=== PATIENT | male | born 1965 | race Caucasian/White ===

== ENCOUNTER 2023-10-13 15:41 | Emergency (ER) | payer MEDICAID, SELFPAY ==
[2023-10-13] VITALS (18 sets, daily range): BP systolic 94–147; BP diastolic 70–103; PULSE 87–115; RESP 13–30; TEMP 37.1; O2SAT 96–99; BMI 33.9
--- NOTE | 2023-10-13 15:57 | XR_ITS ---
The [address] [address] Patient Name: BO KENNY MRN: [id number] date: 1965 Sex: M Assigned Patient Location: ER Current Patient Location: ER Accession/Order Number: [id number] Exam Date: 10/13/2023 16:00 Report Date: 10/13/2023 16:22 At the request of: JACKIE LU Procedure: XR chest 1V EXAM: Chest x-ray HISTORY: . SOB . COMPARISON: 07/21/2022 TECHNIQUE: Single view of the chest FINDINGS: Heart is slightly enlarged. Vascularity is unremarkable. Lungs are free of focal infiltrates. No acute bony abnormality is appreciated. XR/XR chest 1V IMPRESSION: 1. Slight cardiac enlargement. 2. No infiltrates. Electronically authenticated by: CAROLYN BOLANOS Date: 10/13/2023 16:22
--- NOTE | 2023-10-13 15:57 | ECG_ITS ---
The [facility] Test Date: 2023-10-13 Pat Name: BO KENNY Department: Room: - Gender: Male Clinic Business Manager: : 1965 Requested By: Order Number: [id number] Reading MD: TANIKA GROVER Measurements Intervals [place] Rate: 98 P: 52 ID: [id number] QRS: -24 QRSD: 98 T: 65 QT: 346 QTc: 402 Interpretive Statements 1100 Sinus rhythm [address] depression, probably normal 7202 Moderate left axis deviation Low voltage across the precordium 9130 borderline ECG Electronically Signed On 10-14-2023 6:50:58 EDT by TANIKA GROVER
--- NOTE | 2023-10-13 15:59 | ED.SOB1 ---
HPI - SOB/Dyspnea General Chief Complaint: Shortness of Breath/Dyspnea Stated Complaint: Shortness of Breath Time Seen by Provider: 10/13/23 15:49 Source: patient Mode of arrival: walk-in Limitations: no limitations History of Present Illness HPI Narrative: 58 male presents to the emergency department for difficulty breathing. At about 1230 today he was sitting at a table and had a syncopal or near syncopal episode. Since then he has been short of breath. There was no injury. He always has wheezing but it is a bit more than typical and he used a nebulizer treatment afterwards. He is mostly worried about his heart, he states he had a heart attack before and wants to make sure he did not have another 1. No fever or productive cough. He took a home COVID test and it was negative according to the patient. He does not complain of chest pain Related Data Previous Rx's ?Medication ?Instructions ?Recorded prednisone 10 mg tablet See Rx Instructions .Route 10/13/23 .COMPLEX #30 tabs Allergies Allergy/AdvReac Type Severity Reaction Status Date / Time Penicillins Allergy Verified 10/13/23 15:50 Review of Systems ROS Narrative A ten point review of systems is negative except as noted above. Exam Narrative Exam Narrative: Nurses note and vital signs reviewed and patient is not hypoxic. General: The patient appears well and in no apparent distress. Patient is resting comfortably on cart. Skin: Warm, dry, no pallor noted. There is no rash noted. Head: Normocephalic, atraumatic Eye: Normal conjunctiva, no drainage Ears, Nose, Mouth, and Throat: oral mucosa is moist. Nares patent. Cardiovascular: Regular Rate and Rhythm Respiratory: Bilateral rhonchi present with equal breath sounds. Back: non-tender GI: Obese nontender, colostomy bag in place. Musculoskeletal: The patient has no evidence of calf tenderness, symmetrical pulses noted bilaterally Neurological: A&O, normal speech Psychiatric: Cooperative Constitutional Vital Signs, click to edit/add: Last Vital Signs Temp 98.7 F 10/13/23 15:45 Pulse 93 H 10/13/23 17:30 Resp 15 10/13/23 17:30 BP 108/75 10/13/23 17:30 Pulse Ox 97 10/13/23 17:30 O2 Del Method Nasal Cannula 10/13/23 16:18 O2 Flow Rate 2 10/13/23 16:18 Course Vital Signs Vital signs: Vital Signs Temperature 98.7 F 10/13/23 15:45 Pulse Rate 115 H 10/13/23 15:45 Respiratory Rate 30 H 10/13/23 15:45 Blood Pressure 128/89 10/13/23 15:45 Pulse Oximetry 98 10/13/23 15:45 Oxygen Delivery Method Room Air 10/13/23 15:45 Temperature 98.7 F 10/13/23 15:45 Pulse Rate 93 H 10/13/23 17:30 Respiratory Rate 15 10/13/23 17:30 Blood Pressure 108/75 10/13/23 17:30 Pulse Oximetry 97 10/13/23 17:30 Oxygen Delivery Method Nasal Cannula 10/13/23 16:18 Oxygen Delivery Flow Rate 2 10/13/23 16:18 MDM - SOB/Dyspnea MDM Narrative Medical decision making narrative: His workup including 2 troponins is negative. He feels much better now after being given IV Solu-Medrol and aerosol treatment and is able to be discharged home. Treatment diagnosis and follow-up were discussed with the patient. Differential Diagnosis Differential diagnosis: Likely acute exacerbation of chronic obstructive airways disease, congestive heart failure, community acquired pneumonia and other (COVID, influenza, myocardial infarction) Lab Data Attestation: I reviewed the patient's lab results. Labs: Lab Results 10/13/23 10/13/23 10/13/23 Range/Units 16:00 16:04 16:57 WBC 7.2 (4.0-11.0) 10^3/uL RBC 4.44 L (4.70-6.10) 10^6/uL Hgb 14.9 (14.0-18.0) g/dL Hct 43.1 (42.0-54.0) % MCV 97.1 H (80.0-94.0) fL MCH 33.6 (25.9-34.0) pg MCHC 34.6 (29.9-35.2) g/dL RDW 12.5 (11.0-15.0) % Plt Count 208 (150-450) 10^3/uL MPV 9.9 (9.5-13.5) fL Neut % (Auto) 69.6 (43.0-75.0) % Lymph % (Auto) 22.2 (20.5-60.0) % [place] % (Auto) 5.6 (1.7-12.0) % Eos % (Auto) 1.9 (0.9-7.0) % Baso % (Auto) 0.3 (0.2-2.0) % Neut # (Auto) 5.0 (1.4-6.5) 10^3/uL Lymph # (Auto) 1.6 (1.2-3.8) 10^3/uL [place] # (Auto) 0.4 (0.3-0.8) 10^3/uL Eos # (Auto) 0.1 (0.0-0.7) 10^3/uL Baso # (Auto) 0.0 (0.0-0.1) 10^3/uL Abs Immat Gran (auto) 0.03 (0.00-0.03) 10^3/uL Imm/Tot Granulo (auto) 0.4 (0.0-0.5) % Sodium 137 (136-145) mmol/L Potassium 3.6 (3.5-5.1) mmol/L Chloride 98 (98-107) mmol/L Carbon Dioxide 26.0 (21.0-32.0) mmol/L Anion Gap 16.6 BUN 8.0 (7.0-18.0) mg/dL Creatinine 0.80 (0.70-1.30) mg/dL Est GFR ( Amer) >60 (>=60) Est GFR (Non-Af Amer) >60 (>=60) BUN/Creatinine Ratio 10.0 Glucose 105 (74-106) mg/dL Calcium 9.1 (8.5-10.1) mg/dL Troponin I High Sens 18.4 18.3 (4.0-76.1) pg/mL Influenza Type A Ag Negative Influenza Type B Ag Negative SARS-CoV-2 Ag (CV2AG) Negative (NEGATIVE) Imaging Data Chest x-ray: Radiologist's impression: ITS Impressions Chest X-Ray 10/13/23 15:57 IMPRESSION: 1. Slight cardiac enlargement. 2. No infiltrates. Electronically authenticated by: CAROLYN BOLANOS Date: 10/13/2023 16:22 ECG Data Attestation: I personally reviewed and interpreted this ECG as follows: (EKG on my interpretation shows sinus rhythm without acute change) Discharge Plan Discharge Stand Alone Forms: Portal Instructions Chief Complaint: Shortness of Breath/Dyspnea Clinical Impression: Acute exacerbation of chronic obstructive pulmonary disease Patient Disposition: Home, Self-Care Time of Disposition Decision: 17:38 Condition: Good Mode of Transportation: Private Vehicle Prescriptions / Home Meds: New prednisone 10 mg tablet See Rx Instructions .ROUTE .COMPLEX Qty: 30 0RF Rx Instructions: 4 by mouth daily for three days then 3 by mouth daily for three days then 2 by mouth daily for three days then 1 by mouth daily for three days Print Language: Togolese Instructions: COPD (Chronic Obstructive Pulmonary Disease) (ED) Referrals: [facility] [Primary Care Provider] - 1 week
[2023-10-13] MEDS: METHYLPREDNISOLONE SOD SUCC PF 125 MG/2 ML VIAL IVP (16:12)
[2023-10-13] MEDS: ALBUTEROL SULFATE 2.5 MG/3 ML VIAL NEB IH (16:17)
[2023-10-13 16:32] LABS: Basophils Percent Auto 0.3 % (0.2-2.0); Eosinophils Absolute Auto 0.1 10^3/uL (0.0-0.7); Eosinophils Percent Auto 1.9 % (0.9-7.0); Hematocrit 43.1 % (42.0-54.0); Hemoglobin 14.9 g/dL (14.0-18.0); Immature Granulocytes Abs Auto 0.03 10^3/uL (0.00-0.03); Immature Granulocytes Pct Auto 0.4 % (0.0-0.5); Lymphocytes Absolute Auto 1.6 10^3/uL (1.2-3.8); Lymphocytes Percent Auto 22.2 % (20.5-60.0); Mean Corpuscular HGB Conc 34.6 g/dL (29.9-35.2); Mean Corpuscular Hemoglobin 33.6 pg (25.9-34.0); Mean Corpuscular Volume 97.1 fL (80.0-94.0); Mean Platelet Volume 9.9 fL (9.5-13.5); Monocytes Absolute Auto 0.4 10^3/uL (0.3-0.8); Monocytes Percent Auto 5.6 % (1.7-12.0); Neutrophils Percent Auto 69.6 % (43.0-75.0); Platelet Count 208 10^3/uL (150-450); Red Blood Count 4.44 10^6/uL (4.70-6.10); Red Cell Distribution Width 12.5 % (11.0-15.0); White Blood Count 7.2 10^3/uL (4.0-11.0)
[2023-10-13 16:42] LABS: Anion Gap 16.6; Calcium 9.1 mg/dL (8.5-10.1); Chloride 98 mmol/L (98-107); Estimated GFR (African America >60 (>=60); Estimated GFR (Non-African Ame >60 (>=60); Glucose 105 mg/dL (74-106); Potassium 3.6 mmol/L (3.5-5.1); Sodium 137 mmol/L (136-145); Troponin I High Sensitivity 18.4 pg/mL (4.0-76.1)
[2023-10-13 16:42] LABS: Influenza Virus A Antigen Negative; Influenza Virus B Antigen Negative; Internal Control Within Normal Limits
[2023-10-13 16:43] LABS: SARS-CoV-2 Ag NEGATIVE (NEGATIVE)
[2023-10-13 17:19] LABS: Troponin I High Sensitivity 18.3 pg/mL (4.0-76.1)
== END 2023-10-13 17:49 | disposition home or self-care (01) ==
PROVIDERS: Emergency Provider Emergency Medicine
DX: J44.1 Chronic obstructive pulmonary disease with (acute) exacerbation (principal); R06.02 Shortness of breath; I25.2 Old myocardial infarction; Z93.3 Colostomy status
CPT/HCPCS: 36415; 71045; 80048; 84484; 85025; 87804; 87811; 93005; 94640; 96374; 99285; J2930

== ENCOUNTER 2024-05-01 17:10 | Inpatient (IN) | payer MEDICAID, SELFPAY ==
[2024-05-01] VITALS (20 sets, daily range): BP systolic 120–162; BP diastolic 78–119; PULSE 93–122; TEMP 36.7–37.3; O2SAT 91–96; BMI 39.5; BMI 40.0
--- NOTE | 2024-05-01 17:13 | ECG_ITS ---
The [facility] Test Date: 2024-05-01 Pat Name: BO KENNY Department: Room: - Gender: Male Physician Primary Care Sports Medicine: : 1965 Requested By: Order Number: [id number] Reading MD: TANIKA GROVER Measurements Intervals [place] Rate: 113 P: -22 MN: 158 QRS: -30 QRSD: 112 T: 42 QT: 362 QTc: 429 Interpretive Statements 1120 Sinus tachycardia 2320 Nonspecific intraventricular conduction delay [address] depression, probably normal [address] & [place] abnormality 7202 Moderate left axis deviation 9140 abnormal rhythm ECG Electronically Signed On 05-01-2024 22:31:53 EDT by TANIKA GROVER
--- NOTE | 2024-05-01 17:30 | ED.SOB1 ---
HPI - SOB/Dyspnea General Chief Complaint: Shortness of Breath/Dyspnea Stated Complaint: sob Time Seen by Provider: 05/01/24 17:12 Source: patient Mode of arrival: walk-in Limitations: no limitations History of Present Illness HPI Narrative: Patient is a 58-year-old male well-known to this emergency department with a history of COPD, CHF, coronary artery disease who presents to the ER for increasing shortness of breath over the last several days. He believes he is having COPD exacerbation. He used a breathing treatment and his rescue inhaler 30 minutes ago. He is tachypneic on arrival. No objective fevers or vomiting. He reports some tightness in the chest with coughing but has no consistent chest pain. He does have a history of his legs being swollen but states they seem to be better at this time. No sick contacts in the home. Related Data Home Medications ?Medication ?Instructions ?Recorded ?Confirmed No Known Home Medications 05/01/24 05/01/24 Allergies Allergy/AdvReac Type Severity Reaction Status Date / Time Penicillins Allergy Verified 10/13/23 15:50 Review of Systems ROS Constitutional Denies: fever or chills Ears, nose, mouth, and throat Denies: throat pain or nasal congestion Cardiovascular Denies: chest pain Respiratory Reports: shortness of breath, cough and wheezing Gastrointestinal Denies: nausea or vomiting Neurological Denies: numbness in extremities or weakness in extremities Hematologic/Lymphatic Denies: easy bruising or easy bleeding PFSH PFSH Social History Little interest or pleasure in doing things: not at all Feeling down, depressed, or hopeless: not at all Exam Narrative Exam Narrative: Gen.: Awake, alert, in no distress Head: Normocephalic, atraumatic ENT: Moist mucous membranes Respiratory: No respiratory distress, lungs are diminished, faint expiratory wheezing Cardio: Regular rate and rhythm Gastrointestinal: Abdomen is soft, nondistended and nontender to palpation Extremities: Moves extremities equally, no pedal edema Psych: Normal mood and affect Neuro: No focal neuro deficit Skin: Warm, dry, intact Constitutional Vital Signs, click to edit/add: Last Vital Signs Temp 99.2 F 05/01/24 18:49 Pulse 98 H 05/01/24 18:49 Resp 22 H 10/07/24 18:49 BP 120/80 05/01/24 18:49 Pulse Ox 93 L 05/01/24 18:49 O2 Del Method Room Air 05/01/24 18:49 Course Vital Signs Vital signs: Vital Signs Temperature 98.6 F 05/01/24 17:19 Pulse Rate 122 H 05/01/24 17:19 Respiratory Rate 28 H 05/01/24 17:19 Blood Pressure 162/119 H 05/01/24 17:19 Pulse Oximetry 96 05/01/24 17:19 Oxygen Delivery Method Room Air 05/01/24 17:19 Temperature 99.2 F 05/01/24 18:49 Pulse Rate 98 H 05/01/24 18:49 Respiratory Rate 22 H 05/01/24 18:49 Blood Pressure 120/80 05/01/24 18:49 Pulse Oximetry 93 L 05/01/24 18:49 Oxygen Delivery Method Room Air 05/01/24 18:49 MDM - SOB/Dyspnea MDM Narrative Medical decision making narrative: Patient treated with Solu-Medrol, DuoNeb in the ER. He was also given 0.5 g Nitropaste topically for elevated blood pressure and chest discomfort. He has no severe chest pain in the ER and troponin is normal. COVID and influenza screens are negative, the remainder of the lab work is unremarkable the lactic acid was mildly elevated. Blood cultures were obtained, patient will be admitted for COPD exacerbation. Oxygen was placed by nasal cannula at 2 L for comfort as the patient had oxygen saturation 91 to 93% after breathing treatment. Respirations remain between 19-22. SUPERVISED APC VISIT, PHYSICIAN ATTESTATION: Based on the medical record the care appears appropriate. ? Medical Records Attestation: I reviewed the patient's medical records. Lab Data Attestation: I reviewed the patient's lab results. Labs: Lab Results 05/01/24 05/01/24 Range/Units 17:31 17:37 WBC 8.4 (4.0-11.0) 10^3/uL RBC 4.58 L (4.70-6.10) 10^6/uL Hgb 15.6 (14.0-18.0) g/dL Hct 45.3 (42.0-54.0) % MCV 98.9 H (80.0-94.0) fL MCH 34.1 H (25.9-34.0) pg MCHC 34.4 (29.9-35.2) g/dL RDW 12.7 (11.0-15.0) % Plt Count 211 (150-450) 10^3/uL MPV 9.8 (9.5-13.5) fL Neut % (Auto) 74.0 (43.0-75.0) % Lymph % (Auto) 19.3 L (20.5-60.0) % [place] % (Auto) 5.7 (1.7-12.0) % Eos % (Auto) 0.2 L (0.9-7.0) % Baso % (Auto) 0.4 (0.2-2.0) % Neut # (Auto) 6.2 (1.4-6.5) 10^3/uL Lymph # (Auto) 1.6 (1.2-3.8) 10^3/uL [place] # (Auto) 0.5 (0.3-0.8) 10^3/uL Eos # (Auto) 0.0 (0.0-0.7) 10^3/uL Baso # (Auto) 0.0 (0.0-0.1) 10^3/uL Abs Immat Gran (auto) 0.03 (0.00-0.03) 10^3/uL Imm/Tot Granulo (auto) 0.4 (0.0-0.5) % VBG pH 7.472 H (7.330-7.430) VBG pCO2 38.3 L (40.0-52.0) mmHg Sodium 137 (136-145) mmol/L Potassium 3.4 L (3.5-5.1) mmol/L Chloride 99 (98-107) mmol/L Carbon Dioxide 27.3 (21.0-32.0) mmol/L Anion Gap 14.1 BUN 8.0 (7.0-18.0) mg/dL Creatinine 1.02 (0.70-1.30) mg/dL Est GFR ( Amer) >60 (>=60 mL/min/1.73m^2) Est GFR (Non-Af Amer) >60 (>=60 mL/min/1.73m^2) BUN/Creatinine Ratio 7.8 Glucose 111 H (74-106) mg/dL Lactate 2.4 H* (0.4-2.0) mmol/L Calcium 9.4 (8.5-10.1) mg/dL Total Bilirubin 1.1 H (0.2-1.0) mg/dL AST 17 (15-37) U/L ALT 21 (16-63) U/L Alkaline Phosphatase 126 H (46-116) U/L Troponin I High Sens 33.0 (4.0-76.1) pg/mL NT-Pro-B Natriuret Pep 260.0 (<=900.0) pg/mL Total Protein 7.4 (6.4-8.2) g/dL Albumin 3.4 (3.4-5.0) g/dL Globulin 4.0 g/dL Albumin/Globulin Ratio 0.9 Influenza Type A Ag Negative Influenza Type B Ag Negative SARS-CoV-2 Ag (CV2AG) Negative (NEGATIVE) Imaging Data Chest x-ray: Attestation: I have reviewed the pertinent imaging results. ECG Data Attestation: I personally reviewed and interpreted this ECG as follows: (Sinus tachycardia at a rate of 113, occasional PVC, artifact noted with no obvious ST elevation. EKG reviewed by attending physician) Discharge Plan Discharge Chief Complaint: Shortness of Breath/Dyspnea Time of Disposition Decision: 19:13 Prescriptions / Home Meds: No Action No Known Home Medications Print Language: Georgian
[2024-05-01 17:55] LABS: Basophils Percent Auto 0.4 % (0.2-2.0); Eosinophils Percent Auto 0.2 % (0.9-7.0); Hematocrit 45.3 % (42.0-54.0); Hemoglobin 15.6 g/dL (14.0-18.0); Immature Granulocytes Abs Auto 0.03 10^3/uL (0.00-0.03); Immature Granulocytes Pct Auto 0.4 % (0.0-0.5); Lymphocytes Absolute Auto 1.6 10^3/uL (1.2-3.8); Lymphocytes Percent Auto 19.3 % (20.5-60.0); Mean Corpuscular HGB Conc 34.4 g/dL (29.9-35.2); Mean Corpuscular Hemoglobin 34.1 pg (25.9-34.0); Mean Corpuscular Volume 98.9 fL (80.0-94.0); Mean Platelet Volume 9.8 fL (9.5-13.5); Monocytes Absolute Auto 0.5 10^3/uL (0.3-0.8); Monocytes Percent Auto 5.7 % (1.7-12.0); Neutrophils Absolute Auto 6.2 10^3/uL (1.4-6.5); Platelet Count 211 10^3/uL (150-450); Red Blood Count 4.58 10^6/uL (4.70-6.10); Red Cell Distribution Width 12.7 % (11.0-15.0); White Blood Count 8.4 10^3/uL (4.0-11.0)
[2024-05-01] MEDS: METHYLPREDNISOLONE SOD SUCC PF 125 MG/2 ML VIAL IVP (18:04)
[2024-05-01] MEDS: IPRATROPIUM/ALBUTEROL SULFATE 3 ML AMPUL.NEB IH ×2 (18:11→21:56)
[2024-05-01 18:14] LABS: PCO2 VBG 38.3 mmHg (40.0-52.0); pH VBG 7.472 (7.330-7.430)
[2024-05-01 18:15] LABS: Alanine Aminotransferase 21 U/L (16-63); Albumin Globulin Ratio 0.9; Albumin Level 3.4 g/dL (3.4-5.0); Alkaline Phosphatase 126 U/L (46-116); Anion Gap 14.1; Aspartate Amino Transferase 17 U/L (15-37); BUN Creatinine Ratio 7.8; Bilirubin Total 1.1 mg/dL (0.2-1.0); Calcium 9.4 mg/dL (8.5-10.1); Carbon Dioxide 27.3 mmol/L (21.0-32.0); Chloride 99 mmol/L (98-107); Estimated GFR (African America >60 (>=60 mL/min/1.73m^2); Estimated GFR (Non-African Ame >60 (>=60 mL/min/1.73m^2); Glucose 111 mg/dL (74-106); Potassium 3.4 mmol/L (3.5-5.1); Sodium 137 mmol/L (136-145); Total Protein 7.4 g/dL (6.4-8.2)
[2024-05-01] MEDS: NITROGLYCERIN 2% 1 GRAM PACKET 0.5 GM TD (18:15)
[2024-05-01 18:18] LABS: Lactate/Lactic Acid 2.4 mmol/L (0.4-2.0)
[2024-05-01 18:24] LABS: Influenza Virus A Antigen Negative; Influenza Virus B Antigen Negative; Internal Control Within Normal Limits; SARS-CoV-2 Ag NEGATIVE (NEGATIVE)
--- NOTE | 2024-05-01 18:30 | XR_ITS ---
The [address] [address] Patient Name: BO KENNY MRN: [id number] date: 1965 Sex: M Assigned Patient Location: ER Current Patient Location: ER Accession/Order Number: [id number] Exam Date: 05/01/2024 18:25 Report Date: 05/01/2024 19:10 At the request of: COLE CAMPBELL Procedure: XR chest 1V EXAM: CHEST 1 VIEW HISTORY: Shortness of breath TECHNIQUE: Chest, one view. COMPARISON: 10/23/2023. FINDINGS: Low lung volumes with bibasilar atelectasis. No focal consolidation, pleural effusion, or pneumothorax. Pulmonary vasculature is within normal limits. Stable mild to moderate cardiomegaly XR/XR chest 1V IMPRESSION: 1. Expiratory chest with bibasilar atelectasis. No consolidation. 2. Stable cardiomegaly. Negative for pulmonary edema. Electronically authenticated by: MONET SCHAFFER Date: 05/01/2024 19:10
[2024-05-01] MEDS: DOXYCYCLINE HYCLATE 100 MG in 0.9 % SODIUM CHLORIDE 100 ML IV (21:46)
[2024-05-01] MEDS: GUAIFENESIN 200 MG/DEXTROMETHORPHAN 20 MG 10 ML UNIT DOSE CUP PO (21:46)
[2024-05-01] MEDS: TEMAZEPAM 15 MG CAPSULE PO (21:46)
[2024-05-01] MEDS: ONDANSETRON PF 4 MG/2 ML VIAL IV (21:46)
[2024-05-02] VITALS (21 sets, daily range): BP systolic 97–118; BP diastolic 66–81; PULSE 69–98; TEMP 36.4–36.7; O2SAT 92–100
[2024-05-02] MEDS: IPRATROPIUM/ALBUTEROL SULFATE 3 ML AMPUL.NEB IH ×5 (04:20→23:13)
[2024-05-02] MEDS: GUAIFENESIN 200 MG/DEXTROMETHORPHAN 20 MG 10 ML UNIT DOSE CUP PO (04:37)
[2024-05-02] MEDS: ONDANSETRON PF 4 MG/2 ML VIAL IV ×2 (04:37→23:26)
[2024-05-02 06:16] LABS: Hematocrit 45.3 % (42.0-54.0); Hemoglobin 15.2 g/dL (14.0-18.0); Mean Corpuscular HGB Conc 33.6 g/dL (29.9-35.2); Mean Corpuscular Volume 101.3 fL (80.0-94.0); Mean Platelet Volume 9.6 fL (9.5-13.5); Platelet Count 189 10^3/uL (150-450); Red Blood Count 4.47 10^6/uL (4.70-6.10); Red Cell Distribution Width 13.1 % (11.0-15.0); White Blood Count 8.3 10^3/uL (4.0-11.0)
[2024-05-02 06:39] LABS: Alanine Aminotransferase 17 U/L (16-63); Albumin Globulin Ratio 0.8; Albumin Level 3.2 g/dL (3.4-5.0); Alkaline Phosphatase 113 U/L (46-116); Anion Gap 16.2; Aspartate Amino Transferase 12 U/L (15-37); BUN Creatinine Ratio 11.1; Bilirubin Total 1.1 mg/dL (0.2-1.0); Calcium 9.2 mg/dL (8.5-10.1); Carbon Dioxide 26.9 mmol/L (21.0-32.0); Chloride 98 mmol/L (98-107); Estimated GFR (African America >60 (>=60 mL/min/1.73m^2); Estimated GFR (Non-African Ame >60 (>=60 mL/min/1.73m^2); Globulin 4.1 g/dL; Glucose 184 mg/dL (74-106); Magnesium 2.1 mg/dL (1.8-2.4); Potassium 4.1 mmol/L (3.5-5.1); Sodium 137 mmol/L (136-145); Total Protein 7.3 g/dL (6.4-8.2)
[2024-05-02 06:47] LABS: Lactate/Lactic Acid 4.2 mmol/L (0.4-2.0)
[2024-05-02 06:52] LABS: Internal Control Within Normal Limits; Respiratory Syncytial Virus Not Detected (NOT DETECTE)
[2024-05-02 07:01] LABS: Band Neutrophils Absolute 0.1 10^3/uL (0.0-0.3); Lymphocytes Absolute Manual 0.49 10^3/uL (1.20-3.80); Monocytes Absolute Manual 0.16 10^3/uL (0.30-0.80); Segmented Neut Absolute Manual 7.55 10^3/uL (1.4-6.5)
[2024-05-02] MEDS: METHYLPREDNISOLONE SOD SUCC PF 40 MG/ML VIAL IVP ×3 (08:58→21:04)
[2024-05-02] MEDS: DOXYCYCLINE HYCLATE 100 MG in 0.9 % SODIUM CHLORIDE 100 ML IV (08:58)
[2024-05-02] MEDS: ACETAMINOPHEN 325 MG TABLET 650 MG PO ×2 (08:58→21:04)
[2024-05-02] MEDS: 0.9 % SODIUM CHLORIDE 250 ML 10 ML IV (08:59)
--- NOTE | 2024-05-02 09:38 | PM.HP ---
HPI H&P: HPI History of Present Illness Chief complaint: COPD EXACERBATION. SOB Narrative: 58-year-old male with history of coronary artery disease, heart failure with preserved ejection fraction, COPD presented to ER with worsening shortness of breath, cough with productive sputum and decreased oxygen levels. Patient reports that his symptoms started last Wednesday and has progressively gotten worse to the point where he could not keep his oxygen level above 80% even with supplemental oxygen. He has supplemental oxygen to use as needed when he has COPD exacerbation. Patient reports poorly controlled COPD and has COPD flareup once a month or so when he requires oxygen for a couple of days. It also seems like he is very noncompliant with his medications and has not filled up any of his medications for a few months. Patient was recently switched over to Trelegy from Symbicort/Spiriva by his solar field service technician. Patient also reports low-grade fever on Wednesday. He denies any sick contacts. He is quite short of breath at rest with labored breathing/increased work of breathing and is unable to converse comfortably because of dyspnea Opioid HPI Opioid Management Most Recent Pain and Opioid Data: Last Pain Scale 4 05/02/24 09:05 Last Pain Assessment 05/02/24 09:05 Last MAR Pain Assessment 05/02/24 08:58 Last ORT Total Score 1 05/01/24 20:40 Last ORT Risk Category Low Risk 05/01/24 20:40 Review of Systems ROS Status of ROS 10 or more systems reviewed and unremarkable except as noted in history and below [facility] Medical History (Updated 05/02/24 @ 09:51 by Shaikh Eddie MD) Morbid obesity ?E66.01 - Morbid (severe) obesity due to excess calories (ICD-10) Current smoker ?F17.200 - Nicotine dependence, unspecified, uncomplicated (ICD-10) HLD (hyperlipidemia) ?E78.5 - Hyperlipidemia, unspecified (ICD-10) (HFpEF) heart failure with preserved ejection fraction ?I50.30 - Unspecified diastolic (congestive) heart failure (ICD-10) HTN (hypertension) ?I10 - Essential (primary) hypertension (ICD-10) CAD (coronary artery disease) ?I25.10 - Atherosclerotic heart disease of [place] coronary artery without angina pectoris (ICD-10) Social History (Updated 05/02/24 @ 00:51 by Corazon Shaw RN) Within the past year, how often did you have a drink containing alcohol: monthly or less Within the past year, how often did you have six or more drinks on one occasion: less than monthly Smoking status: Current some day smoker Second hand tobacco smoke exposure: No Non-prescribed substance use: denies use Highest level of school completed/degree received: GED or equivalent Little interest or pleasure in doing things: not at all Feeling down, depressed, or hopeless: not at all Do you think of yourself as: straight/heterosexual Gender Identity: male Meds Home Medications and Allergies Home Medications ?Medication ?Instructions ?Recorded ?Confirmed ?Type aspirin 81 mg capsule 81 mg PO DAILY 05/01/24 05/01/24 History atorvastatin 80 mg tablet 80 mg PO DAILY 05/01/24 05/01/24 History carvedilol 6.25 mg tablet 6.25 mg PO BID 05/01/24 05/01/24 History clopidogrel 75 mg tablet 75 mg PO DAILY 05/01/24 05/01/24 History furosemide 40 mg tablet 40 mg PO DAILY 05/01/24 05/01/24 History levothyroxine 200 mcg tablet 200 mcg PO DAILY 05/01/24 05/01/24 History (Euthyrox) lisinopril 2.5 mg tablet 2.5 mg PO DAILY 05/01/24 05/01/24 History loperamide 2 mg capsule (Imodium 4 mg PO Q8H PRN loose stool 05/01/24 05/01/24 History A-D) lorazepam 0.5 mg tablet (Ativan) 0.5 mg PO DAILY PRN anxiety 05/01/24 05/01/24 History ondansetron 4 mg disintegrating 4 mg PO QDAY 05/01/24 05/02/24 History tablet potassium chloride 20 mEq 40 meq PO DAILY 05/01/24 05/02/24 History tablet,extended release(part/cryst) (Klor-Con M) spironolactone 25 mg tablet 25 mg PO QDAY 05/01/24 05/01/24 History (Aldactone) trazodone 50 mg tablet 50 mg PO .hs 05/01/24 05/02/24 History albuterol sulfate 90 mcg/actuation 2 inh inhalation Q4H PRN shortness 05/02/24 05/02/24 History breath activated powder inhaler of breath Allergies Allergy/AdvReac Type Severity Reaction Status Date / Time Penicillins Allergy Verified 10/13/23 15:50 Exam Constitutional Vital Signs, click to edit/add: Last Vital Signs Temp 97.7 F 05/02/24 07:59 Pulse 89 05/02/24 08:00 Resp 22 H 05/02/24 07:59 BP 118/73 05/02/24 07:59 Pulse Ox 93 L 05/02/24 07:59 O2 Del Method Nasal Cannula 05/02/24 07:59 O2 Flow Rate 3 05/02/24 07:59 Common normals: oriented x3 General appearance: cooperative, in distress respiratory and ill appearing Nutritional appearance: obese HENMT Common normals: normocephalic and head/scalp atraumatic Respiratory Effort & inspection: tachypneic and labored Auscultation: wheezes throughout and diminished lung sounds Other: Conversational dyspnea noted. Patient SOB at rest. Coarse breath sounds. Cardio Common normals: regular rate, regular rhythm, S1 normal heart sound and S2 normal heart sound GI Common normals: Normal to inspection, nondistended, normoactive bowel sounds present, soft to palpation, non-tender and no hepatosplenomegaly Extremity Common normals: normal to inspection and full ROM Neuro Common normals: oriented x3, no focal motor deficits and no sensory deficits noted Psych Common normals: mental status grossly normal, thought process normal, denies homicidal ideation and denies suicidal ideation Results Labs Labs: Short CBC 05/01/24 05/02/24 Range/Units 17:37 06:08 WBC 8.4 8.3 (4.0-11.0) 10^3/uL Hgb 15.6 15.2 (14.0-18.0) g/dL Hct 45.3 45.3 (42.0-54.0) % Plt Count 211 189 (150-450) 10^3/uL BMP 05/01/24 05/02/24 17:37 06:08 Sodium 137 137 Potassium 3.4 L 4.1 Chloride 99 98 Carbon Dioxide 27.3 26.9 BUN 8.0 13.0 Creatinine 1.02 1.17 Glucose 111 H 184 H Calcium 9.4 9.2 Liver Function 05/01/24 05/02/24 Range/Units 17:37 06:08 Total Bilirubin 1.1 H 1.1 H (0.2-1.0) mg/dL AST 17 12 L (15-37) U/L ALT 21 17 (16-63) U/L Alkaline Phosphatase 126 H 113 (46-116) U/L Albumin 3.4 3.2 L (3.4-5.0) g/dL ABG ABG results: 05/01/24 17:37 VBG pH 7.472 H VBG pCO2 38.3 L Assessment and Plan Assessment and Plan (1) COPD exacerbation: Assessment and Plan: Acute COPD exacerbation with respiratory failure/hypoxia. Patient is dyspneic at rest, tachypneic and has increased work of breathing. Continue with IV Solu-Medrol, DuoNebs every 4 hours. On p.o. azithromycin for COPD exacerbation. (2) Acute respiratory failure with hypoxia: Assessment and Plan: Uses oxygen as needed whenever he has a COPD exacerbation. He is currently requiring 2 L of oxygen via nasal cannula. He was 88% on RA when I checked his pulse myself. (3) (HFpEF) heart failure with preserved ejection fraction: Assessment and Plan: Closely monitor volume status while receiving steroids. Qualifiers: Heart failure chronicity: chronic Qualified Code(s): I50.32 - Chronic diastolic (congestive) heart failure (4) CAD (coronary artery disease): Assessment and Plan: no evidence of active cardiac ischemia. had PCI 2018. C/w ASA, plavix, statin Qualifiers: Coronary Disease-Associated Artery/Lesion type: [place] artery [place] vs. transplanted heart: [place] heart Associated angina: without angina Qualified Code(s): I25.10 - Atherosclerotic heart disease of [place] coronary artery without angina pectoris (5) HTN (hypertension): Assessment and Plan: well controlled. c/w matthew medications. Qualifiers: Hypertension type: primary hypertension Qualified Code(s): I10 - Essential (primary) hypertension (6) HLD (hyperlipidemia): Assessment and Plan: C/w statin Qualifiers: Hyperlipidemia type: unspecified Qualified Code(s): E78.5 - Hyperlipidemia, unspecified (7) Morbid obesity: Assessment and Plan: Recommend weight loss. He likely has underlying QASIM also. He told me that he has a sleep study scheduled. (8) Current smoker: Assessment and Plan: Discussed smoking cessation. Counseled on risks associated with it. Ordered nicotine patch for the patient. Plan Initially admitted as observation, changed to inpatient as patient is quite sick with increased work of breathing, tachypnea, and hypoxia. He is anticipated to require 2-3 days of inpatient treatment for his COPD exacerbation/close monitoring of his respiratory status.
[2024-05-02] MEDS: CARVEDILOL 6.25 MG TABLET PO ×2 (10:15→21:05)
[2024-05-02] MEDS: SPIRONOLACTONE 25 MG TABLET PO (10:15)
[2024-05-02] MEDS: ENOXAPARIN SODIUM 40 MG/0.4 ML SYRINGE SUBQ (10:15)
[2024-05-02] MEDS: GUAIFENESIN 600 MG TAB.ER.12H PO ×2 (10:15→21:05)
[2024-05-02] MEDS: CLOPIDOGREL BISULFATE 75 MG TABLET PO (10:15)
[2024-05-02] MEDS: FUROSEMIDE 40 MG TABLET PO (10:15)
[2024-05-02] MEDS: AZITHROMYCIN 250 MG TABLET 500 MG PO (10:15)
--- NOTE | 2024-05-02 10:41 | CM.NOTE ---
Rounds made with Dr. Morgan, pt having dyspnea with minimal conversation. Pt does verbalize having home oxygen and uses prn up to 3L NC. Pt requiring oxygen OTC at hospital, no discharge today.
[2024-05-02 11:15] LABS: Glucometer 180 mg/dL (74-106)
--- NOTE | 2024-05-02 11:21 | SWNOTE1 ---
DALE stopped in to speak to pt as he wears home oxygen. [facility] oxygen [facility] [place]. SW to call and see what the prescription is for. DALE called [facility] and pt is supposed to wear 4 liters home oxygen continuous and it was renewed in July and will need to be renewed again July 2024. DALE let nurse and doctor know.
[2024-05-02] MEDS: INSULIN ASPART 300 UNIT/3 ML PEN SUBQ ×3 (12:11→21:04)
[2024-05-02] MEDS: PNEUMOCOCCAL 23 VACCINE 25 MCG/0.5 ML VIAL IM (13:07)
[2024-05-02] MEDS: FLU VAC QS 2024(6MS UP)CEL/PF 60 MCG/0.5 ML SYRINGE IM (13:07)
[2024-05-02 16:01] LABS: Glucometer 180 mg/dL (74-106)
[2024-05-02] MEDS: TRAZODONE HCL 50 MG TABLET PO (21:05)
[2024-05-02 21:10] LABS: Glucometer 241 mg/dL (74-106)
[2024-05-03] VITALS (23 sets, daily range): BP systolic 110–118; BP diastolic 68–80; PULSE 67–99; TEMP 36.4–36.9; O2SAT 91–97
[2024-05-03] MEDS: METHYLPREDNISOLONE SOD SUCC PF 40 MG/ML VIAL IVP ×4 (03:44→21:14)
[2024-05-03] MEDS: IPRATROPIUM/ALBUTEROL SULFATE 3 ML AMPUL.NEB IH ×6 (03:45→23:12)
[2024-05-03 06:14] LABS: Basophils Percent Auto 0.1 % (0.2-2.0); Hematocrit 42.8 % (42.0-54.0); Hemoglobin 14.3 g/dL (14.0-18.0); Immature Granulocytes Abs Auto 0.11 10^3/uL (0.00-0.03); Immature Granulocytes Pct Auto 0.8 % (0.0-0.5); Lymphocytes Absolute Auto 0.6 10^3/uL (1.2-3.8); Lymphocytes Percent Auto 4.4 % (20.5-60.0); Mean Corpuscular HGB Conc 33.4 g/dL (29.9-35.2); Mean Corpuscular Hemoglobin 34.1 pg (25.9-34.0); Mean Corpuscular Volume 102.1 fL (80.0-94.0); Mean Platelet Volume 10.2 fL (9.5-13.5); Monocytes Absolute Auto 0.3 10^3/uL (0.3-0.8); Monocytes Percent Auto 2.1 % (1.7-12.0); Neutrophils Percent Auto 92.6 % (43.0-75.0); Platelet Count 201 10^3/uL (150-450); Red Blood Count 4.19 10^6/uL (4.70-6.10); Red Cell Distribution Width 13.1 % (11.0-15.0)
[2024-05-03 06:32] LABS: Alanine Aminotransferase 15 U/L (16-63); Albumin Globulin Ratio 0.8; Albumin Level 3.1 g/dL (3.4-5.0); Alkaline Phosphatase 97 U/L (46-116); Anion Gap 13.9; Aspartate Amino Transferase 9 U/L (15-37); BUN Creatinine Ratio 15.4; Bilirubin Total 0.9 mg/dL (0.2-1.0); Calcium 9.3 mg/dL (8.5-10.1); Carbon Dioxide 26.7 mmol/L (21.0-32.0); Chloride 98 mmol/L (98-107); Estimated GFR (African America >60 (>=60 mL/min/1.73m^2); Estimated GFR (Non-African Ame >60 (>=60 mL/min/1.73m^2); Glucose 183 mg/dL (74-106); Potassium 4.6 mmol/L (3.5-5.1); Sodium 134 mmol/L (136-145); Total Protein 7.1 g/dL (6.4-8.2)
[2024-05-03] MEDS: ONDANSETRON PF 4 MG/2 ML VIAL IV (07:14)
[2024-05-03 07:56] LABS: Estimated Average Glucose 108 mg/dL; Glycohemoglobin A1C 5.4 % (4.5-6.2)
[2024-05-03 08:48] LABS: Glucometer 169 mg/dL (74-106)
[2024-05-03] MEDS: ASPIRIN 81 MG TAB.CHEW PO (09:00)
[2024-05-03] MEDS: POTASSIUM CHLORIDE 10 MEQ ER TABLET 20 MEQ PO (09:01)
[2024-05-03] MEDS: ATORVASTATIN CALCIUM 40 MG TABLET 80 MG PO (09:01)
[2024-05-03] MEDS: ACETAMINOPHEN 325 MG TABLET 650 MG PO ×2 (09:01→21:14)
[2024-05-03] MEDS: AZITHROMYCIN 250 MG TABLET 500 MG PO (09:01)
[2024-05-03] MEDS: CARVEDILOL 6.25 MG TABLET PO ×2 (09:01→21:14)
[2024-05-03] MEDS: LISINOPRIL 5 MG TABLET 2.5 MG PO (09:01)
[2024-05-03] MEDS: LEVOTHYROXINE SODIUM 100 MCG TABLET 200 MCG PO (09:02)
[2024-05-03] MEDS: SPIRONOLACTONE 25 MG TABLET PO (09:02)
[2024-05-03] MEDS: ENOXAPARIN SODIUM 40 MG/0.4 ML SYRINGE SUBQ (09:02)
[2024-05-03] MEDS: FUROSEMIDE 40 MG TABLET PO (09:02)
[2024-05-03] MEDS: INSULIN ASPART 300 UNIT/3 ML PEN SUBQ ×4 (09:02→21:13)
[2024-05-03] MEDS: CLOPIDOGREL BISULFATE 75 MG TABLET PO (09:03)
--- NOTE | 2024-05-03 09:25 | CM.NOTE ---
Rounds made with Dr. Morgan, discussed with pt about compliance with medications. Pt had not been filling some of his medications per pharmacy. Pt states he had a in the family and they were on some of the same medications so he was taking those medications. Dr. Morgan discussed with pt danger of taking other medications not prescribed to him and medications not being the correct dose. Pt voices understanding and will start having his scripts filled. Discussed home oxygen with pt also, pt was on oxygen at 4L [place] after his open heart surgery, pt has not required around the clock oxygen for months. Pt unsure exact date he was weaned from oxygen, pt now at home only wears during COPD flare.
--- NOTE | 2024-05-03 09:54 | P.IMPN_ITS ---
Progress Note: A&P Assessment and Plan (1) COPD exacerbation: Assessment and Plan: Still dyspneic, SOB at rest. Requiring O2 c/w systemic steroids, duonebs and Azithromycin Repeat CXR. (2) Acute respiratory failure with hypoxia: Assessment and Plan: Hypoxia improved a little but patient is still quite SOB at rest. Repeat CXR. Wean off O2 as tolerated. (3) (HFpEF) heart failure with preserved ejection fraction: Assessment and Plan: Appears euvolemic but at high risk of volume overload due to steroid use. Monitor closely. Qualifiers: Heart failure chronicity: chronic Qualified Code(s): I50.32 - Chronic diastolic (congestive) heart failure (4) CAD (coronary artery disease): Assessment and Plan: Monitor. C/w home medications Qualifiers: Coronary Disease-Associated Artery/Lesion type: [place] artery [place] vs. transplanted heart: [place] heart Associated angina: without angina Qualified Code(s): I25.10 - Atherosclerotic heart disease of [place] coronary artery without angina pectoris (5) HTN (hypertension): Assessment and Plan: BP stable. C/w home medications. Qualifiers: Hypertension type: primary hypertension Qualified Code(s): I10 - Essential (primary) hypertension (6) HLD (hyperlipidemia): Assessment and Plan: C/w statin Qualifiers: Hyperlipidemia type: unspecified Qualified Code(s): E78.5 - Hyperlipidemia, unspecified (7) Morbid obesity: Assessment and Plan: Recommend weight loss/ lifestyle measures to achieve a healthy body weight. (8) Current smoker: Assessment and Plan: Counseled on smoking cessation Internal Medicine - PN: Subj Subjective Interval history: Seen and examined. Patient appears short of breath still at rest. Appears uncomfortable. Speaks in short sentences or otherwise gets SOB. Exam Constitutional Vital Signs, click to edit/add: Last Vital Signs Temp 97.5 F L 05/03/24 07:49 Pulse 78 05/03/24 08:01 Resp 16 05/03/24 08:01 BP 118/80 05/03/24 07:49 Pulse Ox 91 L 05/03/24 07:49 O2 Del Method Nasal Cannula 05/03/24 07:49 O2 Flow Rate 2 05/03/24 07:49 Common normals: oriented x3 General appearance: cooperative and in distress respiratory Nutritional appearance: obese Respiratory Effort & inspection: tachypneic Auscultation: wheezes throughout and diminished lung sounds Other: Conversational dyspnea noted. Patient SOB at rest. Coarse breath sounds. Cardio Common normals: regular rate, regular rhythm, S1 normal heart sound and S2 normal heart sound Neuro Common normals: oriented x3, no focal motor deficits and no sensory deficits noted Psych Common normals: mental status grossly normal, thought process normal, denies homicidal ideation and denies suicidal ideation Internal Medicine - PN: Obj Da Labs Labs: Laboratory Results - last 24 hr 05/02/24 05/02/24 05/02/24 11:14 16:00 21:03 WBC RBC Hgb Hct MCV MCH MCHC RDW Plt Count MPV Neut % (Auto) Lymph % (Auto) [place] % (Auto) Eos % (Auto) Baso % (Auto) Neut # (Auto) Lymph # (Auto) [place] # (Auto) Eos # (Auto) Baso # (Auto) Abs Immat Gran (auto) Imm/Tot Granulo (auto) Sodium Potassium Chloride Carbon Dioxide Anion Gap BUN Creatinine Est GFR ( Amer) Est GFR (Non-Af Amer) BUN/Creatinine Ratio Glucose Estimat Average Glucose Hemoglobin A1c Calcium Total Bilirubin AST ALT Alkaline Phosphatase Total Protein Albumin Globulin Albumin/Globulin Ratio POC Glucose 180 H 180 H 241 H 05/03/24 05/03/24 05:55 08:47 WBC 13.0 H RBC 4.19 L Hgb 14.3 Hct 42.8 MCV 102.1 H MCH 34.1 H MCHC 33.4 RDW 13.1 Plt Count 201 MPV 10.2 Neut % (Auto) 92.6 H Lymph % (Auto) 4.4 L [place] % (Auto) 2.1 Eos % (Auto) 0.0 L Baso % (Auto) 0.1 L Neut # (Auto) 12.0 H Lymph # (Auto) 0.6 L [place] # (Auto) 0.3 Eos # (Auto) 0.0 Baso # (Auto) 0.0 Abs Immat Gran (auto) 0.11 H Imm/Tot Granulo (auto) 0.8 H Sodium 134 L Potassium 4.6 Chloride 98 Carbon Dioxide 26.7 Anion Gap 13.9 BUN 18.0 Creatinine 1.17 Est GFR ( Amer) >60 Est GFR (Non-Af Amer) >60 BUN/Creatinine Ratio 15.4 Glucose 183 H Estimat Average Glucose 108 Hemoglobin A1c 5.4 Calcium 9.3 Total Bilirubin 0.9 AST 9 L ALT 15 L Alkaline Phosphatase 97 Total Protein 7.1 Albumin 3.1 L Globulin 4.0 Albumin/Globulin Ratio 0.8 POC Glucose 169 H
--- NOTE | 2024-05-03 09:56 | XR_ITS ---
[address] [address] Patient Name: BO KENNY MRN: [id number] date: 1965 Sex: M Assigned Patient Location: [place] Current Patient Location: Accession/Order Number: [id number] Exam Date: 05/03/2024 10:00 Report Date: 05/03/2024 11:18 At the request of: SHAIKH MIRANDA Procedure: XR chest 1V EXAMINATION: XR chest 1V HISTORY: sob COMPARISON: XR chest 05/01/2024 FINDINGS: LUNGS: Underexpanded lungs with mild haziness and stranding within lung bases. VASCULATURE: No increased pulmonary vasculature. PLEURA: No pneumothorax, effusion, or pleural thickening. CARDIAC: Stable heart size; possible cardiomegaly. MEDIASTINUM: No visible mass or adenopathy. BONES: No fracture or visible bone lesion. OTHER: Negative. XR/XR chest 1V IMPRESSION: 1. Examination is limited by patient body habitus and AP portable technique. 2. Underexpanded lungs with mild bibasilar infiltrates versus atelectasis; less than seen 2 days ago. Electronically authenticated by: CLAIR YEPEZ Date: 05/03/2024 11:18
[2024-05-03] MEDS: GUAIFENESIN 600 MG TAB.ER.12H PO ×2 (10:56→21:14)
[2024-05-03 11:38] LABS: Glucometer 214 mg/dL (74-106)
[2024-05-03 16:18] LABS: Glucometer 200 mg/dL (74-106)
[2024-05-03] MEDS: INSULIN DETEMIR 300 UNIT/3 ML INSULN.PEN 20 UNIT SUBQ (21:14)
[2024-05-03] MEDS: TRAZODONE HCL 50 MG TABLET PO (21:15)
[2024-05-03 21:16] LABS: Glucometer 237 mg/dL (74-106)
[2024-05-04] VITALS (10 sets, daily range): BP systolic 109–141; BP diastolic 70–87; PULSE 64–95; TEMP 36.5–36.7; O2SAT 92–94
[2024-05-04] MEDS: IPRATROPIUM/ALBUTEROL SULFATE 3 ML AMPUL.NEB IH ×3 (03:30→11:51)
[2024-05-04] MEDS: METHYLPREDNISOLONE SOD SUCC PF 40 MG/ML VIAL IVP ×2 (03:45→08:39)
[2024-05-04] MEDS: LEVOTHYROXINE SODIUM 100 MCG TABLET 200 MCG PO (05:40)
[2024-05-04 06:19] LABS: Basophils Percent Auto 0.1 % (0.2-2.0); Hematocrit 44.2 % (42.0-54.0); Hemoglobin 14.3 g/dL (14.0-18.0); Immature Granulocytes Abs Auto 0.17 10^3/uL (0.00-0.03); Immature Granulocytes Pct Auto 1.3 % (0.0-0.5); Lymphocytes Absolute Auto 0.7 10^3/uL (1.2-3.8); Lymphocytes Percent Auto 5.2 % (20.5-60.0); Mean Corpuscular HGB Conc 32.4 g/dL (29.9-35.2); Mean Corpuscular Hemoglobin 33.7 pg (25.9-34.0); Mean Corpuscular Volume 104.2 fL (80.0-94.0); Mean Platelet Volume 9.9 fL (9.5-13.5); Monocytes Absolute Auto 0.4 10^3/uL (0.3-0.8); Neutrophils Absolute Auto 12.1 10^3/uL (1.4-6.5); Neutrophils Percent Auto 90.4 % (43.0-75.0); Platelet Count 199 10^3/uL (150-450); Red Blood Count 4.24 10^6/uL (4.70-6.10); White Blood Count 13.4 10^3/uL (4.0-11.0)
[2024-05-04 06:33] LABS: Alanine Aminotransferase 16 U/L (16-63); Albumin Globulin Ratio 0.8; Alkaline Phosphatase 88 U/L (46-116); Anion Gap 14.1; Aspartate Amino Transferase 12 U/L (15-37); BUN Creatinine Ratio 23.5; Bilirubin Total 0.9 mg/dL (0.2-1.0); Calcium 8.9 mg/dL (8.5-10.1); Carbon Dioxide 26.4 mmol/L (21.0-32.0); Chloride 100 mmol/L (98-107); Estimated GFR (African America >60 (>=60 mL/min/1.73m^2); Estimated GFR (Non-African Ame >60 (>=60 mL/min/1.73m^2); Globulin 3.7 g/dL; Glucose 166 mg/dL (74-106); Potassium 5.5 mmol/L (3.5-5.1); Sodium 135 mmol/L (136-145); Total Protein 6.7 g/dL (6.4-8.2)
[2024-05-04] MEDS: INSULIN ASPART 300 UNIT/3 ML PEN SUBQ (08:31)
[2024-05-04] MEDS: ENOXAPARIN SODIUM 40 MG/0.4 ML SYRINGE SUBQ (08:31)
[2024-05-04] MEDS: AZITHROMYCIN 250 MG TABLET 500 MG PO (08:32)
[2024-05-04] MEDS: ATORVASTATIN CALCIUM 40 MG TABLET 80 MG PO (08:32)
[2024-05-04] MEDS: ASPIRIN 81 MG TAB.CHEW PO (08:32)
[2024-05-04] MEDS: CARVEDILOL 6.25 MG TABLET PO (08:32)
[2024-05-04] MEDS: LISINOPRIL 5 MG TABLET 2.5 MG PO (08:32)
[2024-05-04] MEDS: FUROSEMIDE 40 MG TABLET PO (08:32)
[2024-05-04] MEDS: CLOPIDOGREL BISULFATE 75 MG TABLET PO (08:33)
[2024-05-04] MEDS: SPIRONOLACTONE 25 MG TABLET PO (08:33)
[2024-05-04] MEDS: GUAIFENESIN 200 MG/DEXTROMETHORPHAN 20 MG 10 ML UNIT DOSE CUP PO (08:36)
[2024-05-04] MEDS: GUAIFENESIN 600 MG TAB.ER.12H PO (09:12)
--- NOTE | 2024-05-04 09:30 | P.DS_ITS ---
DS: Providers Provider Date of admission: 05/02/24 09:35 Primary care physician: [facility] Admitting clinician: Shaikh Eddie Attending physician on admission: Shaikh Eddie Attending physician on discharge: Shaikh Eddie Discharging clinician: Shaikh Eddie Anticipated date of discharge: 05/04/24 DS: Diagnosis Discharge Diagnosis (1) COPD exacerbation: (2) Acute respiratory failure with hypoxia: (3) (HFpEF) heart failure with preserved ejection fraction: Qualifiers: Heart failure chronicity: chronic Qualified Code(s): I50.32 - Chronic diastolic (congestive) heart failure (4) CAD (coronary artery disease): Qualifiers: Coronary Disease-Associated Artery/Lesion type: [place] artery [place] vs. transplanted heart: [place] heart Associated angina: without angina Qualified Code(s): I25.10 - Atherosclerotic heart disease of [place] coronary artery without angina pectoris (5) HTN (hypertension): Qualifiers: Hypertension type: primary hypertension Qualified Code(s): I10 - Essential (primary) hypertension (6) HLD (hyperlipidemia): Qualifiers: Hyperlipidemia type: unspecified Qualified Code(s): E78.5 - Hyperlipidemia, unspecified (7) Morbid obesity: (8) Current smoker: DS: Summary Hospital Course Hospital Course: 58-year-old male with history of coronary artery disease, heart failure with preserved ejection fraction, COPD presented to ER with worsening shortness of breath, cough with productive sputum and decreased oxygen levels. His His symptoms started 3 days prior and progressively worsened to the point where he could not keep his oxygen level above 80% even with supplemental oxygen. He was prescribed supplemental oxygen to use as needed whenever he has COPD exacerbation. Patient was initially admitted for observation and started on IV steroids, duonebs. However, he continued to have sig dyspnea, resp distress and showed lack of clinical progression/improvement after initial period of observation and was changed to inpatient. He continued to have considerable SOB at rest and on exertion until today and for the time in more than a week, he feels he can ambulate w/o getting out of breath. He feels his lungs are more open and he is not as SOB like he was when he arrived. Patient is medically stable for discharge on oral prednisone taper. He was instructed to use his Trelegy once daily. He was also instructed to use albuterol inhaler every 4-6 hours for a few days until he has fully recovered from his COPD exacerbation. Patient was instructed to follow-up with PCP in 1 to 2 weeks. He was also instructed to follow-up with occupational therapy technician as an outpatient as he has not seen his occupational therapy technician for about a year. Patient was educated on worrisome signs and symptoms and was instructed to return to ED if he develops worsening shortness of breath or hypoxia. Status at Discharge Functional status at discharge: independent ambulation Overall status at discharge: patient is back to baseline Time Spent with Patient Time attestation: Total time spent providing and/or coordinating discharge services: Exam Constitutional Vital Signs, click to edit/add: Last Vital Signs Temp 97.9 F 05/04/24 08:28 Pulse 84 05/04/24 08:28 Resp 18 05/04/24 08:28 BP 109/70 05/04/24 08:28 Pulse Ox 93 L 05/04/24 08:28 O2 Del Method Nasal Cannula 05/04/24 08:28 O2 Flow Rate 2 05/04/24 08:28 Common normals: oriented x3 General appearance: cooperative and in distress respiratory Nutritional appearance: obese Respiratory Common normals: normal respiratory effort and no use of accessory muscles Effort & inspection: able to speak in complete sentences Auscultation: diminished lung sounds Other: Faint expiratory wheezing noted. Cardio Common normals: regular rate, regular rhythm, S1 normal heart sound and S2 normal heart sound Neuro Common normals: oriented x3, no focal motor deficits and no sensory deficits noted Psych Common normals: mental status grossly normal, thought process normal, denies homicidal ideation and denies suicidal ideation DS: Data Data Completed and Pending Labs on day of discharge: Labs from last 24 hours 05/04/24 05/03/24 05/03/24 05:52 21:12 16:17 WBC 13.4 H RBC 4.24 L Hgb 14.3 Hct 44.2 MCV 104.2 H MCH 33.7 MCHC 32.4 RDW 13.0 Plt Count 199 MPV 9.9 Neut % (Auto) 90.4 H Lymph % (Auto) 5.2 L [place] % (Auto) 3.0 Eos % (Auto) 0.0 L Baso % (Auto) 0.1 L Neut # (Auto) 12.1 H Lymph # (Auto) 0.7 L [place] # (Auto) 0.4 Eos # (Auto) 0.0 Baso # (Auto) 0.0 Abs Immat Gran (auto) 0.17 H Imm/Tot Granulo (auto) 1.3 H Sodium 135 L Potassium 5.5 H Chloride 100 Carbon Dioxide 26.4 Anion Gap 14.1 BUN 24.0 H Creatinine 1.02 Est GFR ( Amer) >60 Est GFR (Non-Af Amer) >60 BUN/Creatinine Ratio 23.5 Glucose 166 H Calcium 8.9 Total Bilirubin 0.9 AST 12 L ALT 16 Alkaline Phosphatase 88 Total Protein 6.7 Albumin 3.0 L Globulin 3.7 Albumin/Globulin Ratio 0.8 POC Glucose 237 H 200 H 05/03/24 11:35 WBC RBC Hgb Hct MCV MCH MCHC RDW Plt Count MPV Neut % (Auto) Lymph % (Auto) [place] % (Auto) Eos % (Auto) Baso % (Auto) Neut # (Auto) Lymph # (Auto) [place] # (Auto) Eos # (Auto) Baso # (Auto) Abs Immat Gran (auto) Imm/Tot Granulo (auto) Sodium Potassium Chloride Carbon Dioxide Anion Gap BUN Creatinine Est GFR ( Amer) Est GFR (Non-Af Amer) BUN/Creatinine Ratio Glucose Calcium Total Bilirubin AST ALT Alkaline Phosphatase Total Protein Albumin Globulin Albumin/Globulin Ratio POC Glucose 214 H Preliminary micro results at discharge 05/01/24 17:37 Blood Culture Result 2 - Preliminary Blood NO GROWTH AT 36-48 HOURS. FINAL TO FOLLOW. 05/01/24 17:32 Blood Culture Result 1 - Preliminary Blood NO GROWTH AT 36-48 HOURS. FINAL TO FOLLOW. Discharge Plan Discharge Disposition: Home, Self-Care Discharge Medications: New methylprednisolone 4 mg tablets,dose pack 4 mg PO DAILY Qty: 21 0RF Rx Instructions: As per direction on the dose pack azithromycin 250 mg tablet 250 mg PO DAILY Qty: 4 0RF Continued carvedilol 6.25 mg tablet 6.25 mg PO BID Rx Instructions: must administer with a meal/food spironolactone [Aldactone] 25 mg tablet 25 mg PO QDAY levothyroxine [Euthyrox] 200 mcg tablet 200 mcg PO DAILY clopidogrel 75 mg tablet 75 mg PO DAILY aspirin 81 mg capsule 81 mg PO DAILY atorvastatin 80 mg tablet 80 mg PO DAILY potassium chloride [Klor-Con M20] 20 mEq tablet,ER particles/crystals 40 meq PO DAILY furosemide 40 mg tablet 40 mg PO DAILY lorazepam [Ativan] 0.5 mg tablet 0.5 mg PO DAILY PRN (Reason: anxiety) trazodone 50 mg tablet 50 mg PO .hs ondansetron 4 mg tablet,disintegrating 4 mg PO QDAY loperamide [Imodium A-D] 2 mg capsule 4 mg PO Q8H PRN (Reason: loose stool) albuterol sulfate 90 mcg/actuation aerosol powdr breath activated 2 inh inhalation Q4H PRN (Reason: shortness of breath) Held lisinopril 2.5 mg tablet 2.5 mg PO DAILY Hold Instructions: Resume on 05/08/24. Activity: increase activity as tolerated Diet: advance to your usual diet Print Language: [place] Patient Instructions: COPD (Chronic Obstructive Pulmonary Disease) (DC) Forms: Portal Instructions Follow Up Appointments: follow up with Dr Polo SERRATO on 05-11-24 @10 AM [phone], [address] [facility]
--- NOTE | 2024-05-04 11:08 | CM.NOTE ---
Rounds made with Dr. Morgan. Eliceo states he feels much better today and has been up to in room multiple times and is not out of breath. Shanna Morgan discussed plan for discharge for today and to hold Lisinopril x 1 week, to use Trelegy once a day, to use his Albuterol inhaler q 4-6 hrs for a few days, and will also be sent home with prescrip for prednisone. Eliceo verbalized understanding.
[2024-05-04 11:33] LABS: Glucometer 153 mg/dL (74-106)
--- NOTE | 2024-05-04 16:18 | SWNOTE1 ---
DALE received a call that pt had called a taxi because pt's girlfriend is still working. Pt will need oxygen to go home. SW went in and spoke with pt. Pt had called his insurance to get a ride. Pt was not wearing his oxygen when SW went in. SW explained that his script is for 4 liters continuous for his oxygen. He stated that was from years ago. DALE then explained that SW spoke to [facility] and script was renewed July of this year. SW explained he will need oxygen to go home. SW let him know that he can sign a paper to borrow an oxygen tank and then he will need to return to the tank tonight or tomorrow morning. Pt is in agreement. DALE took the DME borrowing form to patient and he signed. DALE then called pt's insurance with pt to see when they are coming. DALE and pt spoke to a transport rep from his insurance and she got ahold of the six horse hitch driver and he should be here any minute. DALE let nurse know.
--- NOTE | 2024-05-05 08:58 | SWNOTE1 ---
SW called to see if pt brought the 02 tank back. Pt voiced he will be brining it back to hospital around noon. DALE let med/surge executive legal secretary know.
--- NOTE | 2024-05-05 13:53 | CM.DCFOLLOWU ---
Person spoke with: Eliceo How are you feeling? Much better How is your pain? No pain Did you understand your discharge instructions? Yes Do you have any questions about your discharge instructions? No Were you given any prescriptions at discharge? Yes Were you able to get your prescriptions filled? Yes Do you understand how to take your medications as ordered? Yes Do you have any questions about your follow up appointment and do you plan to keep your follow up appointment? No its scheduled and I will go to appointment Is there anything else that you would like to discuss? No Questions/Comments/Concerns/Other:
== END 2024-05-04 17:41 | disposition home or self-care (01) | DRG 140 ==
LOC: ER 19:14 → MS 20:35
PROVIDERS: Physician Assistant; Registered Nurse; Admitting Provider Internal Medicine; Emergency Provider Emergency Medicine; Visit Provider Internal Medicine
DX: J44.1 Chronic obstructive pulmonary disease with (acute) exacerbation (principal); J96.01 Acute respiratory failure with hypoxia; I50.32 Chronic diastolic (congestive) heart failure; I25.10 Atherosclerotic heart disease of native coronary artery without angina pectoris; I11.0 Hypertensive heart disease with heart failure; E78.5 Hyperlipidemia, unspecified; E66.01 Morbid (severe) obesity due to excess calories; F17.200 Nicotine dependence, unspecified, uncomplicated; Z68.41 Body mass index [BMI] 40.0-44.9, adult; Z91.148 Patient's other noncompliance with medication regimen for other reason; Z79.82 Long term (current) use of aspirin; Z79.899 Other long term (current) drug therapy; Z79.890 Hormone replacement therapy; Z79.02 Long term (current) use of antithrombotics/antiplatelets; Z20.822 Contact with and (suspected) exposure to COVID-19
CPT/HCPCS: 36415; 71045; 80053; 82800; 82948; 83036; 83605; 83735; 83880; 84484; 85007; 85025; 85027; 87040; 87420; 87502; 87804; 87811; 90674; 90732; 93005; 94640; 94667; 94668; 94761; 96374; 99285; J1650; J2405; J2919

== ENCOUNTER 2024-06-02 14:09 | Inpatient (IN) | payer MEDICAID, SELFPAY ==
[2024-06-02] VITALS (11 sets, daily range): BP systolic 98–112; BP diastolic 59–76; PULSE 84–104; TEMP 37.7–38; O2SAT 91–97; BMI 37.9; BMI 38.7
--- OUTSIDE RECORDS SUMMARY | 2024-06-02 14:15 | XMS_ITS | CCD ---
Author Organization [facility] Care Team Providers Care Shop Tailor Name Role Phone PATY GUERRA Attending Unavailable NONE Primary Care Unavailable AARON OCAMPO Attending Unavailable NONE Primary Care Unavailable None, No PCP Unavailable Unavailable Unavailable Unavailable Unknown, Referring Provider Unavailable Unav ailable Tawnya Pepper Primary Care Provider [phone] Cee Whittaker Unavailable Diogo SOLIS, PhD, Manjula Putnam Unavailable DO Carmine Jackson Attending Provider DO Medhat Baltazar Referring Provider Dr. Aaron Ocampo II Attending Unavaila lory MOY, PCP Primary Care Unavailable DO Carmine Jackson Attending Provider [phone] DO Medhat Baltazar Referring Provider Delaney, DO Meléndez Referring Provider MD Carolyn Dugan Attending Provider DO Medhat Baltazar Attending Provider FAMILY, HEALTH SERVICES Primary Care Unavaila ble MIRANDA, SOLANO H Admitting Unavailable MIRANDA, SOLANO H Attending Unavailable DR CAROLYN REDDY V Consulting Unavailable PAY, DR RENDON Consulting Unavailable SUREKHA QUESADA Consulting Unavailable MIRANDA, SOLANO H Consulting Unavailable TRACI THACKER Consulting Unavailable CAROLYN TRACY Consulting Unavailable VICTORIANO MCFARLAND Consulting Unavailable FAMILY, HEALTH SERVICES Primary Care Unavaila ble JUANITA PERLA Admitting Unavailable JUANITA PERLA Attending Unavailable LINDA CAMPBELL Consulting Unavailable MARKER, DR MOORE Consulting Unavailable CLAIR RAMIREZ Consulting Unavailable JUANITA PERLA Consulting Unavailable SAMSA, SAV Admitting Unavailable SAMSA, SAV Attending Unavailable FAMILY, HEALTH SERVICES Primary Care Unavaila ble Tawnya Pepper Primary Care Provider Cee Whittaker Unavailable Diogo SOLIS, PhD, Manjula Putnam Unavailable Anaiduinn II, Aaron Kuldip Referring Unav ailable McGuinn II, Aaron Dentonrick Attending Unav ailable UNKNOWN, PCP Primary Care Unavailable UNKNOWN, PCP Primary Care Unavailable McGuinn II, Aaron Dentonrick Referring Unav ailable McGuinn II, Aaron Kuldip Attending Unav ailable Lowrie, Hindu Consulting Unavailable [facility] Primary Care Unavaila ble Mast, Shane Attending Unavailable Mast, Shane Admitting Unavailable Carolyn Dugan Attending Unavailable Carolyn Dugan Admitting Unavailable Lowrie, Hindu Referring Unavailable Lowrie, Hindu Referring Unavailable Carmine Jackson Attending Unavailable Carmine Jackson Admitting Unavailable AMBER CUELLAR Primary Care Physician [phone] Tawnya Pepper Primary Care Provider Cee Whittaker Unavailable Diogo SOLIS, PhD, Manjula Putnam Unavailable Steve SOLIS, Vanessa Unavailable [phone] PROVIDER, UNKNOWN Attending Unavailable PROVIDER, UNKNOWN Admitting Unavailable TAWNYA PEPPER Primary Care Unavailable CUTLER, AMBER L Attending Unavailable CUTLER, AMBER L Referring Unavailable CUTLER, AMBER L Attending Unavailable CUTLER, AMBER L Referring Unavailable CUTLER, AMBER L Referring Unavailable MISTI PARDO Attending Unavailable CUTLER, AMBER L Referring Unavailable [place] , Amber L Primary Care Provider Blanco Lazcano Attending Unavailable NONE, XXXX Referring Unavailable Allergies Allergy Classification Reported Allergen(s) Allergy Type Date of Onset Reaction(s) Facility (20 sources) Penicillins; Translations: [Penicillins] Allergy to drug (finding) 9 Difficulty Breathing, Reaction (qualifier value) [facility] 250 DO Work Phone: (10 sources) Morphine; Translations: [MORPHINE] Drug Allergy 9 Agitation, Other [facility] Work Phone: (1 source) Morphine Drug Allergy [facility] Repository (1 source) Penicillin Drug Allergy [facility] Rep[facility] (5 sources) Penicillins Propensity to adverse reactions to drug 9 Difficulty Breathing [facility] (1 source) Penicillins Drug allergy (disorder) 1 [facility] Repository (2 sources) Penicillin G Drug Allergy 3 Anaphylaxis [facility] Medications Current Medications Medication Drug Class(es) Dates Sig (Normalized) Sig (Original) acetaminophen 325 mg / HYDROcodone bitartrate 5 mg oral tablet (20 sources) Opioid Agonist Start: 04-03-2020 End: 04-03-2020 take 1 tablet by mouth every six hours Hydrocodone-Aceta minophen Active 5 - 325 TAB PO Every 6 hours April 02, 2020 11:00pm Albuterol (20 sources) beta2-Adrenergic Agonist Start: 11-25-2022 albuterol Refills(s) 0 Start Date: 11/25/22 Status: Ordered Start: 07-04-2019 take 1 puff(s) by in halation every four hours Albuterol Sulfate (Proair Hfa) 90 mcg/actuation HFA aerosol inhaler Active 2 PUFF INHALATION Q4H July 04, 2019 4:12pm Start: 07-26-2018 End: 09-07-2019 take 2.5 mg by inhalation every eight hours Albuterol Sulfate Discontinued 2.5 MG INHALATION Q8H 90 July 26, 2018 12:00am September 07, 2019 2:50pm Start: 06-06-2018 End: 07-04-2019 Albuterol Sulfate (Proair Hf a) 90 mcg/actuation HFA aerosol inhaler Discontinued 1 INH INHALATION Q6H 6.7 June 14, 2018 12:59pm July 04, 2019 4:12pm albuterol (2.5 M G/3ML) 0.083% nebulizer solution every 6 (six) hours. Active albuterol HFA 90 mcg/act inhaler every 4 (four) hours. Active take 2 puff(s) by mo uth every six hours as needed for wheezing albuterol (PROVENTIL HFA) INHALATION HFA inhaler (VENTOLIN,PROAIR,PROVENTIL) 90mcg Inhale 2 Puffs by mouth every 6 hours as needed for Wheezing or Shortness of Breath. Active take 1-2 puff(s) by inhalation every four to six hours as needed Ventolin HFA 108 (90 Base) MCG/ACT Inhalation Aerosol Solution INHALE 1 TO 2 PUFFS EVERY 4 TO 6 HOURS NEEDED. Quantity: 0 Refills: 0 Ordered: 07-Jul-2021 DO Active amiodarone hydrochloride 200 mg oral tablet (8 sources) Antiarrhythmic Start: 04-03-2020 take 2 tablets by mouth once daily Amiodarone (Pacerone) 200 mg tablet Active 400 MG PO Daily April 03, 2020 2:28pm Start: 07-07-2019 End: 04-03-2020 take 200 mg by mouth once daily Amiodarone Discontinued 200 MG PO Daily 60 July 07, 2019 2:42pm April 03, 2020 2:29pm Start: 06-14-2018 End: 07-07-2019 take 400 mg by mouth once daily Amiodarone Discontinued 400 MG PO Daily 60 June 14, 2018 12:00am July 07, 2019 2:48pm Start: 06-06-2018 End: 06-14-2018 take 400 mg by mouth twice daily Amiodarone Discontinued 400 MG PO Twice daily 120 June 06, 2018 12:00am June 14, 2018 12:53pm aspirin 81 mg delayed release oral tablet (20 sources) Platelet Aggregation Inhibitor, Nonsteroidal Anti-inflammatory Drug Start: 11-25-2022 take 1 tablet by mouth once daily aspirin 81 mg Oral EC Tab 81 mg = 1 tab(s), Oral, Daily, # 30 tab(s), Refills(s) 0 Start Date: 11/25/22 Status: Ordered Start: 05-16-2020 take 1 tablet by lisandro th once daily Aspirin Low Dose 81 MG Oral Tablet Delayed Release TAKE 1 TABLET BY MOUTH EVERY DAY Quantity: 30 Refills: 0 Ordered: 17-Aug-2022 Aaron Ocampo MD Start : 16-May-2020 Active Start: 06-06-2018 End: 06-14-2018 take 1 tablet by mouth once daily Aspirin Low Dose 81 MG Oral Tablet Delayed Release TAKE 1 TABLET BY MOUTH EVERY DAY Quantity: 90 Refills: 3 Ordered: 07-Jan-2022 Aaron Ocampo MD Start : 16-May-2020 Active ASPIRIN 81 MG ch ewable tablet 1 (one) time each day at the same time. Active take 1 tablet by lisandro th once daily aspirin 81 MG tablet Take 81 mg by mouth daily. Active atorvastatin 80 mg oral tablet (20 sources) HMG-CoA Reductase Inhibitor Start: 11-25-2022 take 1 tablet by mouth once daily atorvastatin 80 mg Tab 80 mg = 1 tab(s), Oral, Daily, # 30 tab(s), Refills(s) 0 Start Date: 11/25/22 Status: Ordered Start: 07-21-2021 take 1 tablet by lisandro th once daily at bedtime Atorvastatin Calcium 80 MG Oral Tablet TAKE 1 TABLET BY MOUTH EVERYDAY AT BEDTIME Quantity: 90 Refills: 3 Ordered: 19-Aug-2022 Aaron Ocampo MD Start : 21-Jul-2021 Active Start: 06-06-2018 End: 04-03-2020 take 80 mg by mouth once daily in the evening Atorvastatin Discontinued 80 MG PO Every evening June 14, 2018 12:00am April 03, 2020 2:29pm 120 actuat budesonide 0.16 mg/actuat / formoterol fumarate 0.0045 mg/actuat metered dose inhaler (20 sources) Corticosteroid, beta2-Adrenergic Agonist Start: 04-03-2020 take 2 puff(s) by mouth twice daily Budesonide-Formoterol (Symbicort) 160-4.5 mcg/actuation HFA aerosol inhaler Active 2 PUFF INHALATION Twice daily April 02, 2020 11:00pm INHALE 2 PUFFS BY MOUTH TWICE A DAY *RINSE AFTER USE* Start: 03-14-2020 take 2 puff(s) by mo wah twice daily Symbicort 160-4.5 MCG/ACT inhaler Inhale 2 Puffs by mouth 2 times daily. 03/14/2020 Active Symbicort 160-4. 5 MCG/ACT inhaler every 12 (twelve) hours. Active carvedilol 6.25 mg oral tablet (20 sources) alpha-Adrenergic Filippo, beta-Adrenergic Filippo Start: 11-25-2022 take 1 tablet by mouth twice daily carvedilol 6.25 mg Tab 6.25 mg = 1 tab(s), Oral, BID, # 60 tab(s), Refills(s) 0 Start Date: 11/25/22 Status: Ordered Start: 04-03-2020 take 1 tablet by lisandro th twice daily Carvedilol 6.25 MG Oral Tablet take 1 tablet by mouth twice a day Quantity: 180 Refills: 3 Ordered: 19-Aug-2022 Aaron Ocampo MD Start : 13-Oct-2021 Active Start: 06-06-2018 End: 09-07-2019 take 6.25 mg by mouth twice daily at mealtime Carvedilol Discontinued 6.25 MG PO Twice daily with meals 60 June 14, 2018 12:00am September 07, 2019 2:50pm clopidogrel 75 mg oral tablet (20 sources) [id number] Platelet Inhibitor Start: 05-24-2024 take 1 mg by mouth once daily clopidogrel 75 mg Tab mg tab(s), Oral, Daily, Refills(s) 0 Start Date: 05/24/24 Status: Ordered Start: 04-03-2020 take 1 tablet by lisandro th once daily Clopidogrel Bisulfate 75 MG Oral Tablet TAKE 1 TABLET BY MOUTH EVERY DAY Quantity: 90 Refills: 3 Ordered: 19-Aug-2022 Aaron Ocampo MD Start : 21-Feb-2021 Active Start: 07-04-2019 End: 09-07-2019 take 75 mg by mouth once daily Clopidogrel Discontinue d 75 MG PO Daily July 04, 2019 12:00am September 07, 2019 2:50pm clotrimazole 10 mg oral lozenge (4 sources) Azole Antifungal Start: 04-03-2020 End: 04-03-2020 Clotrimazole Active 10 MG MUCOUS MEM Four times daily April 02, 2020 11:00pm cyclobenzaprine hydrochloride 5 mg oral tablet (20 sources) Muscle Relaxant Start: 11-25-2022 cyclobenzaprin e 5 mg Tab Refills(s) 0 Start Date: 11/25/22 Status: Ordered take 1 tablet by lisandro th three times daily as needed Cyclobenzaprine HCl - 5 MG Oral Tablet T FEI 1 TABLET 3 TIMES DAILY NEEDED. Quantity: 0 Refills: 0 Ordered: 07-Jul-2021 DO Active Wqojlbbypej-Odlrqbpvk-Fygmlg (Trelegy Ellipta) 200-62.5-25 MCG/ACT aerosol powder (1 source) Start: 04-26-2024 take 1 puff(s) by inhalation once daily Vacfrsnnqls-Xhlzekloo-Pvynbl (Trelegy Ellipta) 200-62.5-25 MCG/ACT aerosol powder Indications: Chronic obstructive pulmonary disease, unspecified COPD type (CMS/HCC) Inhale 1 puff Daily 1 each 5 04/26/2024 Active furosemide 40 mg oral tablet (20 sources) Loop Diure tic Start: 04-03-2020 take 1 tablet by mouth once daily furosemide 40 mg Tab 40 mg = 1 tab(s), Oral, Daily, # 30 tab(s), Refills(s) 0 Start Date: 11/25/22 Status: Ordered Start: 09-07-2019 End: 04-03-2020 take 40 mg by mouth twice daily Furosemide Discontinued 40 MG PO Twice daily 60 30 September 07, 2019 12:00am April 03, 2020 2:29pm Start: 11-19-2018 End: 08-31-2019 take 40 mg by mouth twice daily Furosemide Discontinued 40 MG PO Twice daily November 18, 2018 11:00pm August 31, 2019 4:38am Start: 10-10-2018 End: 11-19-2018 take 20 mg by mouth once daily Furosemide Discontinued 20 MG PO Daily October 09, 2018 11:00pm November 19, 2018 5:50pm Start: 06-06-2018 End: 08-25-2018 take 40 mg by mouth twice daily Furosemide Discontinued 40 MG PO BID@0800,1600 60 30 June 14, 2018 12:00am August 25, 2018 10:11am gabapentin 100 mg oral capsule (20 sources) Anti-epileptic Agent Start: 10-20-2020 take 1 capsule by mouth three times daily gabapentin (NEURONTIN) 100 MG capsule Take 1 Capsule by mouth 3 times daily for 120 days. 90 Capsule 3 10/20/2020 Active 24 hr isosorbide mononitrate 30 mg extended release oral tablet (11 sources) Nitrate Vasodilator Start: 04-03-2020 take 1 tablet by mouth once daily Isosorbide Mononitrate Active 30 MG PO Daily April 02, 2020 11:00pm TAKE 1 TABLET BY MOUTH EVERY DAY Start: 07-04-2019 End: 08-31-2019 take 30 mg by mouth once daily Isosorbide Mononitrate Discontinued 30 MG PO Daily July 04, 2019 12:00am August 31, 2019 4:41am isosorbide monon itrate (MONOKET) 10 MG tablet Take 30 mg by mouth daily. Active levoFLOXacin 500 mg oral tablet (4 sources) Quinolone Antimicrobial Start: 04-05-2020 take 500 mg by mouth once daily Levofloxacin Active 500 MG PO Daily 7 April 04, 2020 11:00pm Start: 11-19-2018 End: 07-04-2019 take 750 mg by mouth once daily Levofloxacin Discontinued 750 MG PO Daily November 18, 2018 11:00pm July 04, 2019 4:17pm levothyroxine sodium 0.2 mg oral tablet (20 sources) l-Thyroxine Start: 11-25-2022 take 1 tablet by mouth once daily levothyroxine 200 mcg (0.2 mg) Tab 200 mcg = 1 tab(s), Oral, Daily, # 30 tab(s), Refills(s) 0 Start Date: 11/25/22 Status: Ordered Start: 06-14-2018 take 1 tablet by lisandro th once daily at breakfast levothyroxine (SYNTHROID) 112 MCG tablet Take 1 Tablet by mouth daily (with breakfast). 30 Tablet 3 05/05/2021 Active levothyroxine (S ynthroid, Levoxyl) 200 MCG tablet 1 (one) time each day at the same time. Active take 1 capsule by mo uth once daily Levothyroxine Sodium 112 MCG CAPS Take 112 mcg by mouth daily. Active take 1 tablet by lisandro th once daily Levothyroxine Sodium 150 MCG Oral Tablet TAKE 1 TABLET DAILY. Quantity: 0 Refills: 0 Ordered: 07-Jul-2021 DO Active Lidocaine (20 sources) Antiarrhythmic, Amide Local Anesthetic Start: 11-25-2022 lidocaine 5% patch Refill(s) 0 Start Date: 11/25/22 Status: Ordered Start: 10-20-2020 apply 1 dose transde rmal route once daily in the morning lidocaine (LIDODERM) 5 % patch Place 1 Patch on the skin every morning. 10 Patch 3 10/20/2020 Active Lidocaine 4 % pa tc 1 (one) time each day at the same time. Active Lidocaine 5 % Ex ternal Patch APPLY DIRECTED. Quantity: 0 Refills: 0 Ordered: 07-Jul-2021 DO Active lisinopril 2.5 mg oral tablet (20 sources) Angiotensin Converting Enzyme Inhibitor Start: 11-25-2022 take 1 tablet by mouth once daily lisinopril 2.5 mg Tab 2.5 mg = 1 tab(s), Oral, Daily, # 30 tab(s), Refills(s) 0 Start Date: 11/25/22 Status: Ordered Start: 04-30-2021 take 1 tablet by lisandro th once daily Lisinopril 2.5 MG Oral Tablet TAKE 1 TABLET DAILY. Quantity: 90 Refills: 3 Ordered: 19-Aug-2022 Aaron Ocampo MD Start : 30-Apr-2021 Active Start: 09-07-2019 End: 04-03-2020 take 1 tablet by mouth once daily Lisinopril 2.5 MG Oral Tablet TAKE 1 TABLET DAILY. Quantity: 90 Refills: 3 Ordered: 01-May-2021 Aaron Ocampo MD Start : 30-Apr-2021 Active Start: 06-06-2018 End: 08-31-2019 take 2.5 mg by mouth once daily Lisinopril Discontinue d 2.5 MG PO Daily June 14, 2018 12:00am August 31, 2019 4:38am loperamide hydrochloride 2 mg oral capsule (20 sources) Opioid Agonist Start: 09-17-2021 take 1 capsule by mouth every four hours as needed loperamide 2 mg Cap 2 mg = 1 cap(s), Oral, q4hr, PRN for loose stool, # 60 cap(s), Refills(s) 0 Start Date: 11/25/22 Status: Ordered loperamide (Imod ium) 2 MG capsule every 6 (six) hours. Active Loperamide HCl - 2 MG Oral Tablet TAKE NEEDED. Quantity: 0 Refills: 0 Ordered: 07-Jul-2021 DO Active LORazepam 0.5 mg oral tablet (20 sources) Benzodiazepine Start: 11-25-2022 take 0.25 mg by mouth once LORazepam 0.5 mg Tab 0.25 mg = 0.5 tab(s), Oral, Once, Refills(s) 0 Start Date: 11/25/22 Status: Ordered Start: 04-03-2020 End: 04-03-2020 take 0.5 mg by mouth at bedtime Lorazepam Active 0.5 M G PO Bedtime April 02, 2020 11:00pm Start: 08-31-2019 End: 09-07-2019 take 0.5 mg under the tongue every six hours Lorazepam Discontinued 0.5 MG SUBLINGUAL Q6H August 31, 2019 12:00am September 07, 2019 2:50pm Start: 06-14-2018 End: 08-24-2018 take 0.5 mg by mouth every six hours Lorazepam Discontinued 0.5 MG PO Q6H 12 12June 14, 2018 12:00am August 24, 2018 4:09am metroNIDAZOLE 500 mg oral tablet (4 sources) Nitroimidazole Antimicrobial Start: 04-05-2020 take 1 tablet by mouth every eight hours Metronidazole (Flagyl) 500 mg tablet Active 500 MG PO Q8H 12 02April 04, 2020 11:00pm Start: 11-19-2018 End: 07-04-2019 take 500 mg by mouth four times daily Metronidazole Discontinued 500 MG PO Four times daily November 18, 2018 11:00pm July 04, 2019 4:17pm naloxone hydrochloride 40 mg/ml nasal spray (7 sources) Opioid Antagonist Start: 05-04-2021 naloxone 4 mg/0.1 mL nasal liquid Use 1 Varney in one nostril (alternate sides) as needed for Drug Overdose every 2-3 mins. until help arrives. 2 Each 1 05/04/2021 Active ondansetron 4 mg disintegrating oral tablet (20 sources) Serotonin-3 Receptor Antagonist Start: 01-17-2024 take 1 tablet by mouth once daily ondansetron ODT (Zofran-ODT) 4 MG disintegrating tablet Indications: Diverticulitis of intestine, part unspecified, with perforation and abscess without bleeding Take 1 tablet (4 mg) by mouth 1 (one) time each day at the same time 20 tablet 01/17/2024 Active Start: 11-25-2022 take 1 tablet by lisandro th every six hours as needed for nausea ondansetron 4 mg Dis Tab 4 mg = 1 tab(s), Oral, q6hr, PRN Nausea/Vomiting, # 12 tab(s), Refills(s) 0 Start Date: 11/25/22 Status: Ordered Start: 11-19-2018 End: 04-03-2020 Ondansetron Active 4 MG QUESADA SLINGU Daily April 02, 2020 11:00pm take 4 mg by mouth f our times daily as needed for nausea Ondansetron (ZOFRAN ODT ORAL) Take 4 mg by mouth 4 times daily as needed for Nausea. Active take 1 tablet by lisandro once daily Ondansetron HCl - 4 MG Oral Tablet Take 1 tablet daily Quantity: 0 Refills: 0 Ordered: 07-Jul-2021 DO Active Pediatric Multivitamins-Iron (cerovite jr) CHEW oral chew tab (7 sources) Start: 10-20-2020 take 1 tablet by mouth once daily Pediatric Multivitamins-Iron (cerovite jr) CHEW oral chew tab Take 1 Tablet by mouth daily. 30 Tablet 2 10/20/2020 Active predniSONE 10 mg oral tablet (16 sources) Start: 11-28-2020 take 60 mg by mouth once daily at mealtime Prednisone Active 60 MG PO Daily November 27, 2020 11:00pm administer with food or milk Start: 04-05-2020 take 40 mg by mouth once daily Prednisone Active 40 MG PO Daily 04 29April 04, 2020 11:00pm Start: 09-07-2019 End: 04-03-2020 Prednisone Discontinued 10 M G PO Daily September 07, 2019 12:00am April 03, 2020 2:29pm 40 mg for 2 days, 30 mg for 2 days, 20 mg for 2 days, 10 mg for 2 days then stop Start: 10-11-2018 End: 11-19-2018 Prednisone Discontinued 10 M G PO Daily October 10, 2018 11:00pm November 19, 2018 5:52pm take 60mg (6 tabs aday) for 3 days, then 40mg (4tabs) for 3 days, then 20mg (2tabs) for 3 days, then 10mg (1tab) for 3 days. Start: 08-18-2018 End: 08-25-2018 Prednisone Discontinued 10 M G PO Daily August 18, 2018 12:00am August 25, 2018 10:11am take 40mg (4tabs) for 3 days, then 20mg (2tabs) for 3 days, then 10mg (1tab) for 3 days. Start: 07-26-2018 End: 08-17-2018 Prednisone Discontinued 10 M G PO As Directed July 26, 2018 12:00am August 17, 2018 2:04pm 40 mg for 3 days, 30 mg for 3 days, 20 mg for 3 days then 10 mg for 3 days then stop Start: 06-06-2018 End: 06-14-2018 take 10 mg by mouth once daily for chronic obstructive pulmonary disease Prednisone Discontinued 10 MG PO Daily June 06, 2018 12:00am June 14, 2018 12:55pm please start on 06/11/2018 after finished 20 mg prednisone. For COPD Start: 06-06-2018 End: 06-14-2018 take 20 mg by mouth once daily Prednisone Discontinued 20 MG PO Daily 4 June 06, 2018 12:00am June 14, 2018 12:53pm sennosides, penitentiary 8.6 mg oral tablet (7 sources) Start: 05-05-2021 take 1 tablet by mouth at bedtime senna (SENOKOT) 8.6 MG tablet Take 1 Tablet by mouth at bedtime. 30 Tablet 05/05/2021 Active sodium chloride 9 mg/ml inhalation solution (4 sources) Start: 11-25-2022 sodium chlorid e 0.9% Inh Noemy 3 mL Refill(s) 0 Start Date: 11/25/22 Status: Ordered Start: 11-25-2022 sodium chlorid e 0.9% Inh Noemy 3 mL Refill(s) 0 Start Date: 11/25/22 Status: Ordered Start: 04-03-2020 take 1 mL by inhalat ion three times daily Sodium Chloride Active 3 ML INHALATION Three times daily April 02, 2020 11:00pm spironolactone 25 mg oral tablet (20 sources) Aldosterone Antagonist Start: 11-25-2022 take 1 tablet by mouth once daily spironolactone 25 mg Tab 25 mg = 1 tab(s), Oral, Daily, # 30 tab(s), Refills(s) 0 Start Date: 11/25/22 Status: Ordered Start: 04-03-2020 take 1 tablet by lisandro th once daily Spironolactone (Aldactone) 25 mg tablet Active 25 MG PO Daily April 03, 2020 2:28pm Start: 09-07-2019 End: 04-03-2020 take 25 mg by mouth twice daily Spironolactone Discontinued 25 MG PO Twice daily September 07, 2019 12:00am April 03, 2020 2:29pm Start: 06-14-2018 End: 08-31-2019 take 25 mg by mouth once daily Spironolactone Disconti nued 25 MG PO Daily June 14, 2018 12:00am August 31, 2019 4:38am Start: 06-06-2018 End: 06-14-2018 take 25 mg by mouth twice daily Spironolactone Discontinued 25 MG PO Twice daily 60 30 June 06, 2018 12:00am June 14, 2018 12:56pm Symbicort 160/4.5 inhalation aerosol with adapter (1 source) Start: 11-25-2022 take 2 puff(s) by inhalation twice daily Symbicort 160/4.5 inhalation aerosol with adapter 2 puff(s), Inhalation, BID, Refill(s) 0 Start Date: 11/25/22 Status: Ordered 60 actuat tiotropium 0.0025 mg/actuat inhalation spray (20 sources) Anticholinergic Start: 11-25-2022 Spiriva Respim at 60 ACT 2.5 mcg/inh inhalation aerosol Refills(s) 0 Start Date: 11/25/22 Status: Ordered Start: 04-03-2020 take 2 puff(s) by mo uth once daily Tiotropium [place] (Spiriva Respimat) 2.5 mcg/actuation mist Active 2 PUFF INHALATION Daily April 02, 2020 11:00pm INHALE 2 PUFFS BY MOUTH EVERYDAY Spiriva Respimat 2.5 MCG/ACT inhaler 1 (one) time each day at the same time. Active Tiotropium Bromi de Monohydrate (Spiriva Respimat) 2.5 MCG/ACT AERS 2 puffs Active take 2 puff(s) by in halation once daily Spiriva Respimat 2.5 MCG/ACT Inhalation Aerosol Solution INHALE 2 PUFFS ONCE DAILY Quantity: 0 Refills: 0 Ordered: 07-Jul-2021 DO Active Trazodone (3 sources) Serotonin Reuptake Inhibitor Start: 05-24-2024 trazodone Oral, Refi lls(s) 0 Start Date: 05/24/24 Status: Ordered Start: 01-17-2024 End: 07-15-2024 take 1 tablet by mouth at bedtime traZODone (Desyrel) 50 MG tablet Indications: Insomnia, unspecified type Take 1 tablet (50 mg) by mouth at bedtime 30 tablet 5 01/17/2024 07/15/2024 Active Completed/Discontinued Medications Medication Drug Class(es) Dates Sig (Normalized) Sig (Original) acetaminophen 325 mg oral tablet (9 sources) Start: 06-14-2018 End: 04-03-2020 take 650 mg by mouth every four hours Acetaminophen Discontinued 650 MG PO Q4H 120 June 14, 2018 12:00am April 03, 2020 2:28pm take 2 tablets by mo uth every four hours as needed for pain acetaminophen (TYLENOL) 325 mg tablet Ta ke 650 mg by mouth every 4 hours as needed for Pain or Fever. Active albuterol 0.833 mg/ml / ipratropium bromide 0.167 mg/ml inhalation solution (2 sources) Anticholinergic, beta2-Adrenergic Agonist Start: 09-07-2019 End: 04-03-2020 take 1 mL by inhalation four times daily Ipratropium-Albuterol Discontinued 3 ML INHALATION Four times daily - Respiratory 120 September 07, 2019 12:00am April 03, 2020 2:28pm apixaban 5 mg oral tablet (2 sources) Factor Xa Inhibitor Start: 09-07-2019 End: 04-03-2020 take 1 tablet by mouth twice daily Apixaban (Eliquis) 5 mg Tablet Discontinued 5 MG PO Twice daily 60 September 07, 2019 12:00am April 03, 2020 2:28pm bisacodyl 5 mg delayed release oral tablet (2 sources) Stimulant Laxative Start: 08-24-2018 End: 08-31-2019 take 5 mg by mouth once daily Bisacodyl Discontinued 5 MG PO Daily August 24, 2018 12:00am August 31, 2019 4:41am docusate sodium 100 mg oral capsule (13 sources) Start: 08-31-2019 End: 09-07-2019 take 1 capsule by mouth twice daily Docusate Sodium (Colace) 100 mg Capsule Discontinued 100 MG PO Twice daily August 31, 2019 12:00am September 07, 2019 2:50pm Docusate Sodium (DSS) 100 MG capsule 1 (one) time each day at the same time. Active doxycycline hyclate 100 mg oral capsule (2 sources) Tetracycline-class Drug Start: 07-26-2018 End: 08-01-2018 take 100 mg by mouth twice daily Doxycycline Hyclate Discontinued 100 MG PO Twice daily 12 July 26, 2018 12:00am August 01, 2018 12:01am Ergocalciferol (2 sources) Provitamin D2 Compound Start: 07-07-2019 End: 08-31-2019 Ergocalciferol (Vitamin D2) Discontinued [id number] UNIT PO We@0900 7 July 07, 2019 12:00am August 31, 2019 4:41am Start: 07-07-2019 End: 08-31-2019 Ergocalciferol (Vitamin D2) Discontinued [id number] UNIT PO We@0900 7 July 07, 2019 1:00am August 31, 2019 5:41am 120 actuat fluticasone propionate 0.11 mg/actuat metered dose inhaler (11 sources) Corticosteroid Start: 07-04-2019 End: 04-04-2020 take 1 puff(s) by mouth twice daily Fluticasone Propionate (Flovent Hfa) 110 mcg/actuation HFA aerosol inhaler Discontinued 1 PUFF INHALATION Twice daily April 02, 2020 11:00pm April 04, 2020 1:46pm TAKE 1 PUFF BY MOUTH TWICE A DAY take 1 puff(s) by mouth twice da gerardo fluticasone (FLOVENT HFA) 110 MCG/ACT inhaler Inhale 1 Puff by mouth 2 times daily. Active 12 hr guaiFENesin 600 mg extended release oral tablet (6 sources) Start: 07-07-2019 End: 08-31-2019 take 2 tablets by mouth twice daily, then take 1 tablet by mouth every twelve hours Guaifenesin (Mucinex) 600 mg Tablet Extended Release 12hr Discontinued 1200 MG PO Twice daily 12 12July 07, 2019 12:00am August 31, 2019 4:41am Start: 08-18-2018 End: 08-25-2018 take 1200 mg by mouth every twelve hours Guaifenesin Discontinued 1200 MG PO Q12H 14 August 18, 2018 12:00am August 25, 2018 12:02am Start: 07-26-2018 End: 08-18-2018 take 1 tablet by mouth every twelve hours, then take 1 tablet by mouth every twelve hours Guaifenesin (Mucinex) 600 mg tablet extended release 12hr Discontinued 600 MG PO Q12H July 26, 2018 12:00am August 18, 2018 12:36pm hydrOXYzine pamoate 25 mg oral capsule (2 sources) Antihistamine Start: 06-06-2018 End: 06-14-2018 take 25 mg by mouth every six hours Hydroxyzine Pamoate Discontinued 25 MG PO Q6H June 06, 2018 12:00am June 14, 2018 12:53pm ipratropium bromide 0.2 mg/ml inhalation solution (2 sources) Anticholinergic Start: 07-26-2018 End: 08-31-2019 take 1 mL by inhalation every eight hours Ipratropium [place] Discontinued 1.25 ML INHALATION Q8H July 26, 2018 12:00am August 31, 2019 4:41am methylPREDNISolone 4 mg oral tablet (2 sources) Corticosteroid Start: 07-07-2019 End: 08-31-2019 take 1 tablet by mouth once Methylprednisolone (Medrol (Blue)) 4 mg tablets,dose pack Discontinued 0 PO .COMPLEX July 07, 2019 12:00am August 31, 2019 4:41am orally per package directions microencapsulated potassium chloride 20 meq extended release oral tablet (20 sources) Start: 11-25-2022 take 1 tablet by mouth once daily Klor-Con M20 oral tablet, extended release 20 mEq = 1 tab(s), Oral, Daily, # 30 tab(s), Refills(s) 0 Start Date: 11/25/22 Status: Ordered Start: 04-27-2021 take 2 tablets by mo uth once daily Klor-Con M20 20 MEQ Oral Tablet Extended Release TAKE 2 TABLETS BY MOUTH DAILY Quantity: 60 Refills: 0 Ordered: 18-Aug-2022 Aaron Sanz DO Start : 27-Apr-2021 Active Start: 04-27-2021 take 2 tablets by mo uth once daily Klor-Con M20 20 MEQ Oral Tablet Extended Release TAKE 2 TABLETS BY MOUTH DAILY Quantity: 180 Refills: 3 Ordered: 22-Jul-2021 Paty Gage Start : 27-Apr-2021 Active Start: 04-27-2021 take 2 tablets by mo uth once daily Klor-Con M20 20 MEQ Oral Tablet Extended Release TAKE 2 TABLETS BY MOUTH DAILY Quantity: 60 Refills: 0 Ordered: 17-Jun-2021 Aaron Sanz DO Start : 27-Apr-2021 Active Start: 04-03-2020 take 2 tablets by mo uth once daily Potassium Chloride (Klor-Con M20) 20 mEq tablet,ER particles/crystals Active 40 MEQ PO Daily April 02, 2020 11:00pm TAKE 2 TABLETS BY MOUTH DAILY Start: 10-10-2018 End: 09-07-2019 Potassium Chloride (K-Tab) 2 0 mEq Tablet Extended Release Discontinued 40 mEq/day PO Daily October 09, 2018 11:00pm September 07, 2019 2:50pm Start: 06-14-2018 End: 08-25-2018 Potassium Chloride (Klor-Con M20) 20 mEq Tablet,Er Particles/Crystals Discontinued 40 MEQ PO Daily 60 June 14, 2018 12:00am August 25, 2018 10:11am prednisoLONE 10 mg disintegrating oral tablet (2 sources) Corticosteroid Start: 07-26-2018 End: 08-17-2018 Prednisolone Sodium Phosphate Discontinued 10 MG PO As Directed July 26, 2018 12:00am August 17, 2018 2:04pm 40 mg for 3 days, 30 mg for 3 days, 20 mg for 3 days, 10 mg for 3 days then stop ticagrelor 90 mg oral tablet (8 sources) Start: 06-06-2018 End: 07-07-2019 take 1 tablet by mouth twice daily Ticagrelor (Brilinta) 90 mg Tablet Discontinued 90 MG PO Twice daily 60 June 14, 2018 12:00am July 26, 2018 3:36pm Problems Active Problems Problem Classification Problem Date Documented Da te Episodic/Chronic Acute bronchitis (2 sources) Acute bronchitis; Translations: [Acute bronchitis, unspecified] 07-07-2019 Episodic Acute cerebrovascular disease (2 sources) Cerebral infarction; Translations: [Cerebral infarction, unspecified] Onset: 09-07-2019 01-11-2024 Chronic Acute myocardial infarction (4 sources) Myocardial infarction; Translations: [Non-ST elevation (NSTEMI) myocardial infarction] 04-04-2020 Chronic Administrative/social admission (2 sources) Other reduced mobility; Translations: [Impaired mobility and activities of daily living] 06-07-2018 Episodic Anxiety disorders (6 sources) Anxiety; Translations: [Anxiety disorder, unspecified] Onset: 12-31-2022 06-07-2018 Chronic Blindness and vision defects (2 sources) Eye / vision finding; Translations: [Unspecified visual disturbance] 08-24-2018 Episodic Cardiac dysrhythmias (20 sources) Cardiac arrhythmia, unspecified; Translations: [Ventricular tachycardia] Onset: 08-26-2018 05-28-2018 Chronic Chronic obstructive pulmonary disease and bronchiectasis (20 sources) Chronic obstructive pulmonary disease, unspecified; Translations: [Chronic obstructive lung disease] Onset: 10-13-2018 03-25-2020 Chronic Conduction disorders (20 sources) Patient encounter status; Translations: [Fitting and adjustment of automatic implantable cardiac defibrillator] Onset: 05-06-2022 Resolved: 01-07-2022 Chronic Congestive heart failure; nonhypertensive (20 sources) Heart failure, unspecified; Translations: [Heart failure with reduced ejection fraction] Onset: 08-26-2018 Resolved: 01-17-2024 03-25-2020 Chronic Coronary atherosclerosis and other heart disease (20 sources) Ischemic cardiomyopathy; Translations: [Atherosclerotic heart disease of tribe coronary artery without angina pectoris] Onset: 10-13-2018 03-25-2020 Chronic Coronary atherosclerosis and other heart disease (2 sources) Coronary angioplasty status; Translations: [Coronary angioplasty status] Onset: 08-26-2018 Episodic Disorders of lipid metabolism (4 sources) Hyperlipidemia; Translations: [Hyperlipidemia, unspecified] Onset: 12-31-2022 06-07-2018 Chronic Diverticulosis and diverticulitis (20 sources) Diverticulitis of large intestine; Translations: [Diverticulitis of large intestine with perforation and abscess without bleeding] Onset: 11-20-2018 Resolved: 01-17-2024 08-16-2019 Chronic Essential hypertension (20 sources) Essential (primary) hypertension; Translations: [Benign essential hypertension] Onset: 10-13-2018 03-25-2020 Chronic Heart valve disorders (2 sources) Mitral valve disorder; Translations: [Other nonrheumatic mitral valve disorders] Onset: 09-07-2019 01-11-2024 Chronic Hypertension with complications and secondary hypertension (1 source) Hypertensive heart disease with heart failure Onset: 08-26-2018 Chronic Late effects of cerebrovascular disease (2 sources) Hemiparesis as late effect of cerebrovascular disease; Translations: [Hemiplegia and hemiparesis following unspecified cerebrovascular disease affecting right dominant side] Onset: 12-31-2022 12-31-2022 Chronic Nonspecific chest pain (4 sources) Chest pain; Translations: [Chest pain, unspecified] 04-03-2020 Episodic Nutritional deficiencies (1 source) Vitamin D deficiency, unspecified; Translations: [Vitamin D deficiency, unspecified] Onset: 06-08-2022 Chronic Other aftercare (20 sources) Drug therapy finding; Translations: [Long-term (current) use of other medications] Episodic Other gastrointestinal disorders (12 sources) Ileostomy present; Translations: [Encounter for attention to ileostomy] Onset: 04-02-2021 04-02-2021 Chronic Other gastrointestinal disorders (11 sources) Colostomy present; Translations: [Encounter for attention to colostomy] Onset: 12-12-2019 Resolved: 12-03-2020 12-03-2020 Chronic Other gastrointestinal disorders (1 source) Colostomy status; Translations: [COLOSTOMY STATUS] Onset: 08-01-2021 Chronic Other gastrointestinal disorders (1 source) Ileostomy status; Translations: [Ileostomy status (HCC)] Onset: 12-27-2023 Chronic Other hematologic conditions (2 sources) Raised cardiac enzyme or marker; Translations: [Other specified abnormalities of plasma proteins] 04-04-2020 Episodic Other lower respiratory disease (2 sources) Pulmonary edema; Translations: [Chronic pulmonary edema] 07-04-2019 Chronic Other nervous system disorders (2 sources) Aphasia; Translations: [Aphasia] Onset: 12-31-2022 12-31-2022 Chronic Other nervous system disorders (2 sources) Cognitive deficit in communication skills; Translations: [Cognitive communication deficit] Onset: 09-07-2019 01-11-2024 Chronic Other nervous system disorders (2 sources) Difficulty walking; Translations: [Difficulty in walking, not elsewhere classified] Onset: 09-07-2019 01-11-2024 Chronic Other nutritional; endocrine; and metabolic disorders (1 source) Obesity, unspecified Onset: 10-13-2018 Chronic Other nutritional; endocrine; and metabolic disorders (3 sources) Body mass index 30+ - obesity; Translations: [Body Mass Index 34.0-34.9, adult] Chronic Other nutritional; endocrine; and metabolic disorders (20 sources) Obesity; Translations: [Obesity, unspecified] Onset: 03-25-2020 03-25-2020 Chronic Other nutritional; endocrine; and metabolic disorders (1 source) Morbid (severe) obesity due to excess calories; Translations: [MORBID SEVERE OBES D/T EXCESS NEHA] Onset: 08-01-2021 Chronic Other nutritional; endocrine; and metabolic disorders (1 source) Body mass index (BMI) 32.0-32.9, adult; Translations: [BODY MASS INDEX BMI 32.0-32.9 ADULT] Onset: 01-07-2022 Chronic Other nutritional; endocrine; and metabolic disorders (5 sources) Obesity caused by energy imbalance; Translations: [Other obesity due to excess calories] Onset: 03-25-2020 03-25-2020 Chronic Agnes-; endo-; and myocarditis; cardiomyopathy (except that caused by tuberculosis or sexually transmitted disease) (3 sources) Cardiomyopathy; Translations: [Cardiomyopathy, unspecified] Onset: 09-07-2019 01-11-2024 Chronic Residual codes; unclassified (4 sources) Sleep apnea; Translations: [Sleep apnea, unspecified] Onset: 09-07-2019 07-05-2019 Chronic Residual codes; unclassified (1 source) Obstructive sleep apnea (adult)(pediatric); Translations: [Obstructive sleep apnea (adult) (pediatric)] Onset: 05-28-2022 Chronic Residual codes; unclassified (1 source) Hypersomnia; Translations: [Hypersomnia, unspecified] 04-26-2024 Chronic Residual codes; unclassified (9 sources) Nicotine-filled electronic cigarette user; Translations: [Tobacco use disorder] Episodic Comment on above: one electronic devic e a week; Residual codes; unclassified (2 sources) Patient encounter status; Translations: [Encounter for prophylactic measures, unspecified] 06-07-2018 Episodic Residual codes; unclassified (1 source) Tobacco user 05-24-2024 Episodic Respiratory failure; insufficiency; arrest (adult) (2 sources) [id number] respiratory failure; Translations: [Acute and chronic respiratory failure with hypoxia] 08-31-2019 Chronic Substance-related disorders (7 sources) Smoker; Translations: [Nicotine dependence, unspecified, uncomplicated] Onset: 08-01-2021 Resolved: 01-17-2024 06-07-2018 Chronic Thyroid disorders (20 sources) Hypothyroidism; Translations: [Unspecified acquired hypothyroidism] Onset: 03-25-2020 03-25-2020 Chronic Unclassified (3 sources) Cardiomyopathy, unspecified; Translations: [Cardiomyopathy, unspecified] Onset: 08-26-2018 Unclassified (1 source) Encntr for adjust and mgmt of automatic implntbl card defib Onset: 10-13-2018 Unclassified (1 source) Family hx of ischem heart dis and oth dis of the circ sys Onset: 10-13-2018 Unclassified (1 source) CONTACT W/AND (SUSP) EXPOS COVID-19; Translations: [CONTACT W/AND (SUSP) EXPOS COVID-19] Onset: 08-01-2021 Past or Other Problems Problem Classification Problem Date Documented Da te Episodic/Chronic Complications of surgical procedures or medical care (14 sources) Colostomy malfunction; Translations: [Colostomy malfunction] Onset: 0 Resolved: 1 12-03-2020 Chronic Complications of surgical procedures or medical care (9 sources) Drug-induced hypotension; Translations: [Hypotension due to drugs] Onset: 4 08-30-2019 Episodic Conditions associated with dizziness or vertigo (11 sources) Dizziness; Translations: [Dizziness and giddiness] Onset: 4 08-30-2019 Episodic Fluid and electrolyte disorders (4 sources) Hyponatremia; Translations: [Hypo-osmolality and hyponatremia] Onset: 4 Resolved: 4 06-07-2018 Episodic Gastrointestinal hemorrhage (9 sources) Lower gastrointestinal hemorrhage; Translations: [Gastrointestinal hemorrhage, unspecified] Onset: 0 03-25-2020 Episodic Mycoses (9 sources) Candidiasis of mouth; Translations: [Candidal stomatitis] Onset: 0 03-25-2020 Episodic Noninfectious gastroenteritis (9 sources) Colitis; Translations: [Noninfective gastroenteritis and colitis, unspecified] Onset: 0 10-12-2019 Episodic Other aftercare (1 source) MCFP (current) use of aspirin; Translations: [CONSTRUCTION CHECKER CURRENT USE OF ASPIRIN] Onset: 2 Episodic Other aftercare (1 source) Other intermission coordinator (current) drug therapy; Translations: [OTH CONSTRUCTION CHECKER CURRENT DRUG THERAPY] Onset: 2 Episodic Other circulatory disease (1 source) Personal history of sudden cardiac arrest; Translations: [PERSONAL HISTORY SUDDEN CARD ARREST] Onset: 2 Episodic Other connective tissue disease (4 sources) Muscle weakness; Translations: [Muscle weakness (generalized)] Onset: 0 08-24-2018 Episodic Other gastrointestinal disorders (9 sources) Intra-abdominal collection; Translations: [Other ascites] Onset: 0 08-30-2019 Episodic Other lower respiratory disease (4 sources) Dyspnea; Translations: [Shortness of breath] Onset: 0 11-28-2020 Episodic Other screening for suspected conditions (not mental disorders or infectious disease) (9 sources) Prolonged QT interval; Translations: [Abnormal electrocardiogram [ECG] [EKG]] Onset: 4 08-30-2019 Episodic Other upper respiratory disease (4 sources) Bronchospasm; Translations: [Acute bronchospasm] Onset: 4 05-28-2018 Episodic Phlebitis; thrombophlebitis and thromboembolism (4 sources) Deep venous thrombosis of lower extremity; Translations: [Acute embolism and thrombosis of unspecified deep veins of right lower extremity] Onset: 0 09-01-2019 Episodic Pneumonia (except that caused by tuberculosis or sexually transmitted disease) (2 sources) Pneumonia; Translations: [Pneumonia, unspecified organism] Onset: 0 01-11-2024 Episodic Pulmonary heart disease (15 sources) H/O: pulmonary embolus; Translations: [Personal history of pulmonary embolism] Onset: 0 Resolved: 4 03-25-2020 Episodic Residual codes; unclassified (10 sources) History of closure of colostomy; Translations: [Other specified postprocedural states] Onset: 1 12-03-2020 Episodic Residual codes; unclassified (4 sources) History of partial resection of colon; Translations: [Acquired absence of other specified parts of digestive tract] Onset: 4 08-31-2019 Episodic Residual codes; unclassified (1 source) Other amnesia; Translations: [Other amnesia] Onset: 2 Episodic Respiratory failure; insufficiency; arrest (adult) (10 sources) Hypoxemic respiratory failure; Translations: [Respiratory failure, unspecified with hypoxia] Onset: 0 06-07-2018 Episodic Screening and history of mental health and substance abuse codes (20 sources) Personal history of nicotine dependence; Translations: [Ex-smoker] Onset: 9 03-25-2020 Episodic Comment on above: QUIT 2017 1 PPD; quit 05/26/2021; Skin and subcutaneous tissue infections (14 sources) Abscess of abdominal wall; Translations: [Cutaneous abscess of abdominal wall] Onset: 1 05-05-2021 Episodic Syncope (4 sources) Syncope; Translations: [Syncope and collapse] Onset: 4 Resolved: 4 07-05-2019 Episodic Results Test Name Value Interpretation Reference Range Facility [facility] V[facility] Office/Cl antoine Noteon 05-25-2024 Heart and Vascular Office/Clinic Note [facility]/Clinic Note Chief Complaint 6 month f/u SOB History of Present Illness The patient is a 58-year-old male with what sounds like a history of obstructive coronary artery disease and prior PCI in 2018 with 3.0 x 28 mm drug-eluting stent to unknown vessel, cardiomyopathy with estimated LVEF in the range of 35%, based on the MUGA scan. He did have a prior transthoracic echocardiogram, as well. He is a former patient of Dr. Ocampo's who was seen by Dr. Rosales last time in November 2022. He presents with complaints of chronic shortness of breath and chronic tightness in his chest. He reports no exertional chest tightness or shortness of breath. Denies orthopnea or PND. He does have mild lower extremity swelling. Last echo from 2021 demonstrated EF in the range of 55%. Review of Systems ROS - Provider Constitutional: no fever, no chills, no fatigue Skin:no rash, no lesions ENMT: no ear pain, no sore throat, no congestion. Respiratory: no shortness of breath, no cough, no wheezing. Cardiovascular: no chest pain, no palpitations, no edema. Gastrointestinal: no nausea, no vomiting, no diarrhea, no GI bleeding. Genitourinary: no dysuria, no frequencyno hematuria Musculoskeletal: no back pain, no trauma. Neurologic: no headache, no dizziness, no numbness, no weakness. Psychiatric: no sleeping problems, no irritability, no mood swings/depression. Heme/Lymph: no bleeding tendency, no bruising tendency, no petechiae, Allergy/Immuno logic: no seasonal allergies, no food allergies, no recurrent infections Physical Exam Vitals & Measurements HR: 100(Peripheral) RR: 16 BP: 140/86 SpO2: 96% HT: 66 in HT: 167 cm WT: 110.8 kg WT: 243.76 lb BMI: 39.73 General: alert, no acute distress Neck: Supple, noJVD nocarotid bruit Cardiovascular: regular rate and rhythm, no murmur normal peripheral perfusion Respiratory: Lungs CTAB, respirations non labored Extremities: Trace edema left lower extremity. Trace edema right lower extremity Neurological: oriented x 4, LOC appropriate for age, speech normal Skin: Warm, dry, intact- no rash or concerning lesions Assessment/Plan 1. CAD in tribe artery (I25.10: Atherosclerotic heart disease of tribe coronary artery without angina pectoris) I would like to obtain a prior cath/PCI report from 2018 from [facility]. For now, we will continue DAPT. Fasting lipids will be ordered 2. Cardiomyopathy (I42.9: Cardiomyopathy, unspecified) The patient appears euvolemic by physical exam. From what I understand, assessment of the LVEF was in the range of 35%. He will need, possibly, medical optimization. I am going to update a transthoracic echocardiogram. BMP, BNP to be ordered, as well 3. Hypertension (I10: Essential (primary) hypertension) Blood pressure is borderline elevated. Follow-up No qualifying data available Problem List/Past Medical History Ongoing No qualifying data Historical No qualifying data Procedure/Surgical History Appendectomy, Colostomy, Heart, Left leg. Medications albuterol aspirin 81 mg Oral EC Tab, 81 mg= 1 tab(s), Oral, Daily atorvastatin 80 mg Tab, 80 mg= 1 tab(s), Oral, Daily carvedilol 6.25 mg Tab, 6.25 mg= 1 tab(s), Oral, BID clopidogrel 75 mg Tab, Oral, Daily cyclobenzaprine 5 mg Tab furosemide 40 mg Tab, 40 mg= 1 tab(s), Oral, Daily Klor-Con M20 oral tablet, extended release, 20 mEq= 1 tab(s), Oral, Daily levothyroxine 200 mcg (0.2 mg) Tab, 200 mcg= 1 tab(s), Oral, Daily lidocaine 5% patch lisinopril 2.5 mg Tab, 2.5 mg= 1 tab(s), Oral, Daily loperamide 2 mg Cap, 2 mg= 1 cap(s), Oral, q4hr, PRN LORazepam 0.5 mg Tab, 0.25 mg= 0.5 tab(s), Oral, Once ondansetron 4 mg Dis Tab, 4 mg= 1 tab(s), Oral, q6hr, PRN sodium chloride 0.9% Inh Noemy 3 mL spironolactone 25 mg Tab, 25 mg= 1 tab(s), Oral, Daily trazodone, Oral Allergies penicillins (Reaction) Social History Tobacco - High Risk, 11/25/2022 5-9 cigarettes (between 1/4 to 1/2 pack)/day in last 30 days Tobacco Use:. Current vaping or e-cigarette use Smokeless Tobacco Use:. Cigarettes, Vaping, 05/24/2024 Family History Metastatic cancer: Mother. Prior coronary angiogram/PCI report was received and reviewed. Presentation in May 2018 with non-STEMI, nonsustained ventricular tachycardia, acute systolic heart failure with pulmonary edema/impending cardiogenic shock. Primary PCI to a proximal circumflex artery/OM with 3.0 x 28 mm Reagan stent, complicated by no reflow which subsequently resolved. Minimal disease of the LAD in its mid segment, RCA. LVEF at index presentation in the range of 35% with grade [address] [facility] Comment on above: Result Comment: Elec tronically Signed By: Jaleesa SOLIS, Blanco [place]\.br\Date and Time Signed: 05/25/24 11:41 EDT XR CHEST 2 VIEWSon XR CHEST 2 VIEWS FINDINGS: Comparison February 26, 2023. Mild increase in lung volumes. No new infiltrates, parenchymal consolidation or pulmonary edema. Diffuse interstitial prominence. Calcified and noncalcified bilateral in profile pleural plaques. IMPRESSION: COPD changes, parenchymal and pleural-based findings consistent with interstitial lung disease, specifically asbestosis. Correlate with appropriate occupational exposure history. TRANSCRIBED BY: ELECTRONICALLY SIGNED BY: Demar Garcia MD Normal Not Available Addendum Noteon 01-02-2024 Electronic Organ Mechanic Authentication Interface Message Text Addended by: JOHN COLLIER on: 01/02/2024 09:47 AM Modules accepted: Orders Normal [employer] [facility] Addendum Noteon 12-29-2023 Electronic Organ Mechanic Authentication Interface Message Text Addended by: JOHN COLLIER on: 12/29/2023 12:25 PM Modules accepted: Orders Normal [employer] [facility] Office Visit (Cardiology)on 2022 Follow-up visit Diagnoses/Problems Assessed Atherosclerosis of coronary artery of tribe heart without angina pectoris (414.01) (I25.10) Essential hypertension, benign (401.1) (I10) Ischemic cardiomyopathy (414.8) (I25.5) Ventricular tachycardia (paroxysmal) (427.1) (I47.29) High risk medication use (V58.69) (Z79.899) Class 2 obesity with body mass index (BMI) of 35.0 to 35.9 in adult (278.00,V85.35) (E66.9,Z68.35) Colostomy in place (V44.3) (Z93.3) Nicotine-filled electronic cigarette user (305.1) (Z72.0) one electronic device a week Preoperative cardiovascular examination (V72.81) (Z01.810) Orders Atherosclerosis of coronary artery of tribe heart without angina pectoris Renew: Atorvastatin Calcium 80 MG Oral Tablet; TAKE 1 TABLET BY MOUTH EVERYDAY AT BEDTIME Renew: Carvedilol 6.25 MG Oral Tablet; take 1 tablet by mouth twice a day Renew: Clopidogrel Bisulfate 75 MG Oral Tablet; TAKE 1 TABLET BY MOUTH EVERY DAY Atherosclerosis of coronary artery of tribe heart without angina pectoris, Preoperative cardiovascular examination NM Cardiac Stress/Rest Nuclear Med Order; Status:Hold For - Scheduling,Retrospect lilia By Protocol Authorization; Requested for:19Aug2022; Radiologist to Determine Optimal Study : Y What are the patient's signs and symptoms? : POC, CAD, PTCA Class 2 obesity with body mass index (BMI) of 35.0 to 35.9 in adult Healthy Weight Tips; Status:Complete - Retrospective Authorization; Done: 19Aug2022 Some eating tips that can help you lose weight.; Status:Complete - Retrospective Authorization; Done: 19Aug2022 Essential hypertension, benign Renew: Lisinopril 2.5 MG Oral Tablet; TAKE 1 TABLET DAILY Essential hypertension, benign, Ischemic cardiomyopathy Renew: Spironolactone 25 MG Oral Tablet; TAKE 1 TABLET DAILY SocHx: Nicotine-filled electronic cigarette user You need to quit smoking.; Status:Complete - Retrospective Authorization; Done: 19Aug2022 You need to stop smoking. Though it is not easy, more than half of all adult smokers have quit. We encourage you to write down all the reasons you should quit smoking and set a quit date for yourself. Ask us how we can help. You may also call [phone] for free resources and assistance.; Status:Complete - Retrospective Authorization; Done: 19Aug2022 Patient Instructions Please bring all medicines, vitamins, and herbal supplements with you when you come to the office. Prescriptions will not be filled unless you are compliant with your follow up appointments or have a follow up appointment scheduled as per instruction of your physician. Refills should be requested at the time of your visit. POC pending lexiscan stress test. Colostomy reversal with Dr. [facility], Fax: [phone] Follow up in 9-12 months Chief Complaint ELICEO KENNY is being seen for a 6 month follow-up of. History of Present Illness Patient returns in follow-up of problems as noted. From a cardiac standpoint he is done relatively well although he admits to a sedentary lifestyle. He has none of the symptoms of coronary disease that preceded his original diagnostic evaluation and intervention. We reviewed with him signs and symptoms of malignant ventricular tachyarrhythmia and he denies any such symptomatology. In this regard we also reviewed the recent MUGA scan which demonstrates ejection fraction 35% and he wishes to forego consideration of defibrillator implantation and I believe is reasonable. He is, though, interested in a surgical reversal of his colostomy. Surgery is pending in several months. Chart review demonstrates that he was diagnosed with coronary disease which was minimally symptomatic prior to intervention. We are concerned regarding the elapse of the time since his last evaluation and the potential for progressive coronary atherosclerosis, particularly because he is sedentary and would not provoke any symptoms that would alert us to such a development. Because of this and the plan for a rather major surgical undertaking I recommend he undergo a Lexiscan Cardiolite stress test to evaluate for disease that could complicate his procedure. Surgical History Problems History of Ankle surgery History of Appendectomy History of Complete colonoscopy [facility] History of Ostomy History of Percutaneous transluminal coronary angioplasty Past Medical History Problems History of Encounter for assessment of automatic implantable cardioverter-defibril lator (AICD) (V53.32) (Z45.02) Resolved Date: 07 Jan 2022 Current Meds Medication NameInstruction Aspirin Low Dose 81 MG Oral Tablet Delayed ReleaseTAKE 1 TABLET BY MOUTH EVERY DAY Atorvastatin Calcium 80 MG Oral TabletTAKE 1 TABLET BY MOUTH EVERYDAY AT BEDTIME Carvedilol 6.25 MG Oral Tablettake 1 tablet by mouth twice a day Clopidogrel Bisulfate 75 MG Oral TabletTAKE 1 TABLET BY MOUTH EVERY DAY Cyclobenzaprine HCl - 5 MG Oral TabletTAKE 1 TABLET 3 TIMES DAILY N (more content not included)... Normal [employer] Tobacco Screening.on 023 Adult depression screening assessment No [facility] 250 DO Work Phone: Tobacco use status [facility] b) No [facility] 250 DO Work Phone: CBC AUTO DIFFon 07-23-2022 BASO # 0.0 103/ul Normal 0.0-0.1 [facility] Comment on above: Performed By: #### C MREP #### [facility] [address] [place] [address] Dr. Wilda Patel Basophils/100 WBC (Bld) 0.5 % Normal 0.2-2.0 [facility] Comment on above: Performed By: #### C MREP #### [facility] [address] [place] [address] Dr. Wilda Patel EO # 0.1 103/ul Normal 0.0-0.7 [facility] Comment on above: Performed By: #### C MREP #### [facility] [address] [place] [address] Dr. Wilda Patel Eosinophils/100 WBC (Bld) 0.8 % Critically low 0.9-7.0 [facility] Comment on above: Performed By: #### C MREP #### [facility] [address] [place] [address] Dr. Wilda Patel Erythrocyte distribution width (RBC) [Ratio] 12.3 % Normal 11.0-15.0 [facility] Comment on above: Performed By: #### C MREP #### [facility] [address] [place] [address] Dr. Wilda Patel Hematocrit (Bld) [Volume fraction] 41.9 % Critically low 42.0-54.0 [facility] Comment on above: Performed By: #### C MREP #### [facility] [address] [place] [address] Dr. Wilda Patel Hemoglobin (Bld) [Mass/Vol] 14.6 g/dL Normal 14.0-18.0 [facility] Comment on above: Performed By: #### C MREP #### [facility] [address] [address] [address] Wilda Patel IG # 0.03 10e3/ul Normal 0.00-0.03 [facility] Comment on above: Performed By: #### C MREP #### [facility] [address] [address] [address] Wilda Patel IG % 0.5 % Normal 0.0-0.5 [facility] Comment on above: Performed By: #### C MREP #### [facility] [address] [address] [address] Wilda Patel LYMPH # 1.7 103/ul Normal 1.2-3.8 [facility] Comment on above: Performed By: #### C MREP #### [facility] [address] [place] [address] Dr. Wilda Patel Lymphocytes/100 WBC (Bld) 26.2 % Normal 20.5-60.0 [facility] Comment on above: Performed By: #### C MREP #### [facility] [address] [address] [address] Wilda Patel MANUAL DIFF REQ NO Normal [facility] Comment on above: Performed By: #### C MREP #### [facility] [address] [place] [address] Dr. Wilda Patel MCH (RBC) [Entitic mass] 32.9 pg Normal 25.9-34.0 [facility] Comment on above: Performed By: #### C MREP #### [facility] [address] [place] [address] Dr. Wilda Patel MCHC (RBC) [Mass/Vol] 34.8 g/dL Normal 29.9-35.2 [facility] Comment on above: Performed By: #### C MREP #### [facility] [address] [place] [address] Dr. Wilda Patel MCV (RBC) [Entitic vol] 94.4 fL Critically high 80.0-94.0 [facility] Comment on above: Performed By: #### C MREP #### [facility] [address] [address] [address] Wilda Patel MONO # 0.6 103/ul Normal 0.3-0.8 [facility] Comment on above: Performed By: #### C MREP #### [facility] [address] [address] [address] Wilda Patel Monocytes/100 WBC (Bld) 9.1 % Normal 1.7-12.0 [facility] Comment on above: Performed By: #### C MREP #### [facility] [address] [address] [address] Wilda Patel NEUT # 4.1 103/ul Normal 1.4-6.5 [facility] Comment on above: Performed By: #### C MREP #### [facility] [address] [address] [address] Wilda Patel Neutrophils/100 WBC (Bld) 62.9 % Normal 43.0-75.0 [facility] Comment on above: Performed By: #### C MREP #### [facility] [address] [address] [address] Wilda Patel Platelet mean volume (Bld) [Entitic vol] 10.0 fL Normal 9.5-13.5 [facility] Comment on above: Performed By: #### C MREP #### [facility] [address] [address] [address] Wilda Patel PLT 182 103/ul Normal 150-450 [facility] Comment on above: Performed By: #### C MREP #### [facility] [address] [address] [address] Wilda Patel RBC 4.44 106/ul Critically low 4.70-6.10 [facility] Comment on above: Performed By: #### C MREP #### [facility] [address] [address] [address] Wilda Patel WBC 6.5 103/ul Normal 4.0-11.0 [facility] Comment on above: Performed By: #### C MREP #### [facility] [address] [place] [address] Dr. Wilda Patel MAGNESIUMon 07-23-2022 Magnesium [Mass/Vol] 2.4 mg/dL Normal 1.8-2.4 [facility] Comment on above: Performed By: #### C MREP #### [facility] [address] [place] [address] Dr. Wilda Patel PROF CHEM 8 (BAS METB)on Anion gap [Moles/Vol] 12.8 mmol/L Normal [facility] Comment on above: Performed By: #### C MREP #### [facility] [address] [place] [address] Dr. Wilda Patel Calcium [Mass/Vol] 8.3 mg/dL Critically low 8.5-10.1 [facility] Comment on above: Performed By: #### C MREP #### [facility] [address] [place] [address] Dr. Wilda Patel Chloride [Moles/Vol] 97 mmol/L Critically low 98-107 [facility] Comment on above: Performed By: #### C MREP #### [facility] [address] [place] [address] Dr. Wilda Patel CO2 [Moles/Vol] 24.5 mmol/L Normal 21.0-32.0 [facility] Comment on above: Performed By: #### C MREP #### [facility] [address] [place] [address] Dr. Wilda Patel Creatinine [Mass/Vol] 0.76 mg/dL Normal 0.70-1.30 [facility] Comment on above: Performed By: #### C MREP #### [facility] [address] [place] [address] Dr. Wilda Patel EGFR-AF GABONESE >60 Normal >=60 [facility] Comment on above: Performed By: #### C MREP #### [facility] [address] [place] [address] Dr. Wilda Patel EGFR-NON AF GABONESE >60 Normal >=60 [facility] Comment on above: Performed By: #### C MREP #### [facility] [address] [address] [address] Wilda Patel Glucose [Mass/Vol] 98 mg/dL Normal 74-106 [facility] Comment on above: Performed By: #### C MREP #### [facility] [address] [address] [address] Wilda Patel Potassium [Moles/Vol] 3.3 mmol/L Critically low 3.5-5.1 [facility] Comment on above: Performed By: #### C MREP #### [facility] [address] [address] [address] Wilda Patel Sodium [Moles/Vol] 131 mmol/L Critically low 136-145 [facility] Comment on above: Performed By: #### C MREP #### [facility] [address] [address] [address] Wilda Patel Urea nitrogen [Mass/Vol] 10.0 mg/dL Normal 7.0-18.0 [facility] Comment on above: Performed By: #### C MREP #### [facility] [address] [address] [address] Wilda Patel Urea nitrogen/Creatinine [Mass ratio] 13.2 mg/mg Normal [facility] Comment on above: Performed By: #### C MREP #### [facility] [address] [address] [address] Wilda Patel CARDIAC KEON 3-6on 2 CK [Catalytic activity/Vol] 108 U/L Normal 39-308 [facility] Comment on above: Performed By: #### E RUR #### [facility] [address] [address] [address] Wilda Patel CK.MB [Mass/Vol] 2.69 ng/mL Normal <=3.60 [facility] Comment on above: Performed By: #### E RUR #### [facility] [address] [address] [address] Wilda Patel HSTROP 29.0 pg/mL Normal 4.0-76.1 [facility] Comment on above: Result Comment: CUT- OFF POINTS HAVE BEEN ESTABLISHED BASED ON THE FOURTH UNIVERSAL DEFINITIONS OF MYOCARDIAL INFARCTION. THE UPPER REFERENCE LIMIT (URL) OF TROPONIN, DEFINED THE 99TH PERCENTILE OF cTnI DISTRIBUTION IN A REFERENCE POPULATION, HAS BEEN CONFIRMED THE DECISION THRESHOLD FOR WA DIAGNOSIS. Performed By: #### E RUR #### [facility] [address] [place] [address] Dr. Wilda Patel CK [Catalytic activity/Vol] 114 U/L Normal 39-308 [facility] Comment on above: Performed By: #### C MREP #### [facility] [address] [place] [address] Dr. Wilda Patel CK.MB [Mass/Vol] 2.60 ng/mL Normal <=3.60 [facility] Comment on above: Performed By: #### C MREP #### [facility] [address] [place] [address] Dr. Wilda Patel HSTROP 26.7 pg/mL Normal 4.0-76.1 [facility] Comment on above: Result Comment: CUT- OFF POINTS HAVE BEEN ESTABLISHED BASED ON THE FOURTH UNIVERSAL DEFINITIONS OF MYOCARDIAL INFARCTION. THE UPPER REFERENCE LIMIT (URL) OF TROPONIN, DEFINED THE 99TH PERCENTILE OF cTnI DISTRIBUTION IN A REFERENCE POPULATION, HAS BEEN CONFIRMED THE DECISION THRESHOLD FOR WA DIAGNOSIS. Performed By: #### C MREP #### [facility] [address] [place] [address] Dr. Wilda Patel CBC AUTO DIFFon 07-22-2022 BASO # 0.0 103/ul Normal 0.0-0.1 [facility] Comment on above: Performed By: #### E RUR #### [facility] [address] [place] [address] Dr. Wilda Patel Basophils/100 WBC (Bld) 0.5 % Normal 0.2-2.0 [facility] Comment on above: Performed By: #### E RUR #### [facility] [address] [place] [address] Dr. Wilda Patel EO # 0.0 103/ul Normal 0.0-0.7 [facility] Comment on above: Performed By: #### E RUR #### [facility] [address] [place] [address] Dr. Wilda Patel Eosinophils/100 WBC (Bld) 0.1 % Critically low 0.9-7.0 [facility] Comment on above: Performed By: #### E RUR #### [facility] [address] [place] [address] Dr. Wilda Patel Erythrocyte distribution width (RBC) [Ratio] 12.4 % Normal 11.0-15.0 [facility] Comment on above: Performed By: #### E RUR #### [facility] [address] [place] [address] Dr. Wilda Patel Hematocrit (Bld) [Volume fraction] 42.3 % Normal 42.0-54.0 [facility] Comment on above: Performed By: #### E RUR #### [facility] [address] [place] [address] Dr. Wilda Patel Hemoglobin (Bld) [Mass/Vol] 15.0 g/dL Normal 14.0-18.0 [facility] Comment on above: Performed By: #### E RUR #### [facility] [address] [place] [address] Dr. Wilda Patel IG # 0.01 10e3/ul Normal 0.00-0.03 [facility] Comment on above: Performed By: #### E RUR #### [facility] [address] [place] [address] Dr. Wilda Patel IG % 0.1 % Normal 0.0-0.5 [facility] Comment on above: Performed By: #### E RUR #### [facility] [address] [place] [address] Dr. Wilda Patel LYMPH # 1.7 103/ul Normal 1.2-3.8 [facility] Comment on above: Performed By: #### E RUR #### [facility] [address] [place] [address] Dr. Wilda Patel Lymphocytes/100 WBC (Bld) 22.2 % Normal 20.5-60.0 [facility] Comment on above: Performed By: #### E RUR #### [facility] [address] [place] [address] Dr. Wilda Patel MANUAL DIFF REQ NO Normal [facility] Comment on above: Performed By: #### E RUR #### [facility] [address] [place] [address] Dr. Wilda Patel MCH (RBC) [Entitic mass] 33.1 pg Normal 25.9-34.0 [facility] Comment on above: Performed By: #### E RUR #### [facility] [address] [place] [address] Dr. Wilda Patel MCHC (RBC) [Mass/Vol] 35.5 g/dL Critically high 29.9-35.2 [facility] Comment on above: Performed By: #### E RUR #### [facility] [address] [place] [address] Dr. Wilda Patel MCV (RBC) [Entitic vol] 93.4 fL Normal 80.0-94.0 [facility] Comment on above: Performed By: #### E RUR #### [facility] [address] [place] [address] Dr. Wilda Patel MONO # 0.7 103/ul Normal 0.3-0.8 [facility] Comment on above: Performed By: #### E RUR #### [facility] [address] [place] [address] Dr. Wilda aPtel Monocytes/100 WBC (Bld) 9.7 % Normal 1.7-12.0 [facility] Comment on above: Performed By: #### E RUR #### [facility] [address] [place] [address] Dr. Wilda Patel NEUT # 5.2 103/ul Normal 1.4-6.5 [facility] Comment on above: Performed By: #### E RUR #### [facility] [address] [place] [address] Dr. Wilda Patel Neutrophils/100 WBC (Bld) 67.4 % Normal 43.0-75.0 [facility] Comment on above: Performed By: #### E RUR #### [facility] [address] [address] [address] Wilda Patel Platelet mean volume (Bld) [Entitic vol] 9.4 fL Critically low 9.5-13.5 [facility] Comment on above: Performed By: #### E RUR #### [facility] [address] [address] [address] Wilda Patel PLT 171 103/ul Normal 150-450 [facility] Comment on above: Performed By: #### E RUR #### [facility] [address] [address] [address] Wilda Patel RBC 4.53 106/ul Critically low 4.70-6.10 [facility] Comment on above: Performed By: #### E RUR #### [facility] [address] [address] [address] Wilad Patel WBC 7.7 103/ul Normal 4.0-11.0 [facility] Comment on above: Performed By: #### E RUR #### [facility] [address] [address] [address] STROKE HEAD WOon 07-22-[address] STROKE HEAD WO EXAMINATION: CT STROKE HEAD WO HISTORY: Blurred vision, tingling sensation in the fingertips and tinnitus bilaterally. TECHNIQUE: Axial CT scans through the head were obtained without IV contrast administration. Dose reduction techniques were achieved by using: automated exposure control and/or adjustment of mA and /or kV according to patient size and/or use of iterative reconstruction technique. COMPARISON: None. FINDINGS: The cerebral hemispheres have normal white and frederick matter and corticomedullary differentiation. To the limit of CT, the posterior fossa appears unremarkable. The ventricular system and cortical sulci are normal for the patient's age. No area of abnormal mass-effect or edema or intracranial hemorrhage. The visualized orbits show no abnormal mass. The visualized paranasal sinuses show no air-fluid level. Mastoid air cells are clear. IMPRESSION: No acute intracranial process. Electronically authenticated by: SUREKHA QUESADA Date: 2022-07-21 22:22 Normal [facility] CTA NECK WO W CONon 07-22-20 22 CTA NECK WO W CON EXAMINATION: CTA HEA D WO W CON, CTA NECK WO W CON CLINICAL INDICATION: Stroke. TECHNIQUE: CT angiography of the head and neck was then performed following intravenous administration of 75 cc of Omnipaque 350 injected at a rate of 5 cc/sec. Multiple MIP images in axial, coronal, and sagittal planes and 3D surfaced rendered images were then acquired using the source data. Automated dose lowering techniques and/or adjustment according to patient size were utilized for this examination. COMPARISON: CT head without contrast 07/21/2022. FINDINGS: CTA: CTA Head: CTA of the head is limited due to optimal contrast with the venous vasculature being mostly opacified. No evidence to suggest flow-limiting stenosis along the intracranial portions of the bilateral ICAs. The bilateral M1 segments are patent. The proximal M2 segments appear patent. The bilateral A1 segments are patent. Bilateral vertebral arteries appear patent. The basilar artery is patent. Bilateral P1 segments are patent. No evidence for large vessel occlusion. No evidence for high-grade stenosis within the proximal large vessels. The cerebral venous sinuses appear patent. CT angiogram neck: Study is suboptimal due to venous vasculature opacification. A 3 vessel arch is shown. No evidence for flow-limiting stenosis along the origins of the great vessels. The left common carotid artery is patent without evidence for flow-limiting stenosis. Atherosclerotic plaque noted at the left carotid bulb and proximal left ICA with approximately 43% focal narrowing. Left ECA appears patent. The right common carotid artery appears patent without evidence for flow-limiting stenosis. Mild calcific atherosclerotic plaque noted at the right carotid bulb and proximal right ICA with no flow-limiting stenosis. The right ECA is patent. Bilateral vertebral artery origins appear patent. No flow-limiting stenosis noted along the extracranial course of the vertebral arteries. The imaged lung apices are clear. IMPRESSION: CTA of the head and neck is limited due to suboptimal contrast with the venous vasculature being mostly opacified. 1. No evidence for large vessel occlusion. 2. No evidence for high-grade stenosis within the proximal large vessels. 3. Atherosclerotic plaque noted at the left carotid bulb and proximal left ICA with approximately 43% focal narrowing. No measurable stenosis on the right. 4. Limited evaluation of the vertebral arteries, no evidence to suggest flow-limiting stenosis along the extracranial course. 5. Dural venous sinuses are patent. Assessment of stenosis of the internal carotid arteries is based on NASCET criteria. Electronically authenticated by: TRACIFeliz THACKER Date: 2022-07-22 01:01 Normal [facility] Covid-19 PCR (CVDTBH)on 06-26 SARS-CoV-2 (COVID-19) RNA SHREYA+probe Ql (Unsp spec) Not detected Normal NOT DETECTED [facility] Comment on above: Result Comment: When diagnostic testing is negative, the possibility of a false negative should be considered in the context of a patient's recent exposures and the presence of clinical signs and symptoms consistent with SARS-CoV-2. This test is not yet approved or cleared by the [place] FDA. When there are no FDA-approved or cleared tests available, and other criteria are met, FDA can make tests available under an emergency access mechanism called an Emergency Use Authorization (EUA). The EUA for this test is supported by the Horse Show Manager of Health and Human Service's declaration that circumstances exist to justify the emergency use of in vitro diagnostics for the detection and/or diagnosis of the virus that causes COVID-19. This EUA will remain in effect for the duration of the COVID-19 declaration justifying emergency of IVDs, unless it is terminated or revoked by the FDA (after which the test may no longer be used). Performed By: #### L ACT #### [facility] [address] [place] [address] Dr. Wilda Patel ECHOCARDIO M/2D COMPLETEon 1 09-22-2021 ECHOCARDIO M/2D COMPLETE Patient: ELICEO KENNY Exam Date: 07/22/2022 : 1965 Gender:M Ordering : SHAIKH Mirtha JEAN . Admission #: [id number] Family : DR AARON OCAMPO M.D. Order #: [id number] CLICK HERE TO VIEW EXAM ECHOCARDIOGRAM REPORT PROCEDURE: CARDIO PULMONARY ECHOCARDIO M/2D COMP INDICATIONS: Chest pain, PTCA, COPD COMPARISON: None. DESCRIPTION: COMPLETE ECHOCARDIOGRAM Real-time transthoracic echocardiography with 2D, M-mode, spectral and color flow Doppler performed. QUALITY: Technically difficult due to patients condition. 66 213# BP 93/79 LEFT VENTRICLE: Mild dilatation. Mild concentric left ventricular hypertrophy. LV EF: Global left ventricular systolic function is difficult to assess but appears preserved; visually estimated ejection fraction is 55 to 60%. DIASTOLIC: Normal diastolic function. ATRIAL SEPTUM: Visually appears intact. LEFT ATRIUM: Normal chamber size. RIGHT ATRIUM: Normal chamber size. RIGHT VENTRICLE: Normal chamber size. Normal right ventricular systolic function. TRICUSPID VALVE: Normal mobility and thickness. No stenosis with trivial regurgitation. MITRAL VALVE: Normal mobility and thickness. No evidence of mitral valve stenosis. There is no mitral annular calcification. No mitral regurgitation. AORTIC VALVE: Normal trileaflet appearance. No visible sclerosis. Normal leaflet mobility. No evidence of aortic valve stenosis. No aortic regurgitation. AORTIC ROOT: Normal diameter and appearance. PULMONIC VALVE: Not well visualized. No stenosis. No regurgitation. PERICARDIUM: Small, circumferential, pericardial effusion is seen. IVC: Collapses with inspirations. IVC is normal in size. CONCLUSION: Global left ventricular systolic function is difficult to assess but appears preserved; visually estimated ejection fraction is 55 to 60%. Mild left ventricular hypertrophy. Normal diastolic function. The right ventricle is normal in size and systolic function. No significant valvular abnormalities. A small pericardial effusion is seen. Adult Echocardiography Procedure Report Left Ventricle LVEDD (3.7 - 5.6 cm): 5.79 cm LVESD (2.2 - 4.0 cm): 4.42 cm LVIVS thickness (0.6 - 1.2 cm): 1.03 cm LVPW thickness (0.5 - 1.0 cm): 1.31 cm e': 0.04 m/s E - e': 10.92 LVOT Max Gradient: 1.76 mm[Hg] Peak Velocity (LVOT): 0.66 m/s LVOT Diameter 2.69 cm Left Atrium LA Volume Index (2D A2C): 41.24 ml, 41.24 ml Left Atrium Systolic Dimension: 3.22 cm Mitral Valve MV E to A Ratio: 0.87 Mitral Valve A-Wave Peak Velocity: 0.54 m/s Mitral Valve E-Wave Peak Velocity: 0.47 m/s Right Ventricle Aorta AO Root Diam: 3.95 cm Aortic Valve AoV Area (Peak Jae): 4.05 cm2, 4.05 cm2 Peak Velocity(Antegrade Flow): 0.93 m/s Peak Gradient(Antegrade Flow): 3.46 mm[Hg] Tricuspid Valve Peak Velocity: 0.36 m/s Pulmonic Valve Peak Velocity: 0.91 m/s, 0.94 m/s Peak Gradient: 3.32 mm[Hg], 3.53 mm[Hg] Right Atrium Right Atrium Systolic Pressure: 34.44 ml, 34.44 ml Dictated by: Willy Jin M.D. on 07/28/2022 at 09:57 Approved by: Willy Jin M.D. on 07/28/2022 at 10:00 Normal [facility] LIPID PROFILEon 07-22-2022 CHOL-HDL RATIO NORM SEE BELOW Normal [facility] Comment on above: Result Comment: 3.3 - 4.4 LOW RISK 4.4 - 7.1 AVERAGE RISK 7.1 - 11.0 MODERATE RISK >11.0 HIGH RISK Performed By: #### C MREP #### [facility] [place] [facility] [address] [place] [address] Dr. Wilda Patel Cholesterol [Mass/Vol] 180 mg/dL Normal <=200 [facility] Comment on above: Performed By: #### C MREP #### [facility] [place] [facility] [address] [address] [address] Wilda Patel Cholesterol in HDL [Mass/Vol] 59 mg/dL Normal 40-60 [facility] Comment on above: Performed By: #### C MREP #### [facility] [place] [facility] [address] [address] [address] Wilda Patel Cholesterol in LDL [Mass/Vol] 74.4 mg/dL Normal [facility] Comment on above: Performed By: #### C MREP #### [facility] [place] [facility] [address] [address] [address] Wilda Patel Cholesterol.total/Chol esterol in HDL [Mass ratio] 3.1 {ratio} Normal [facility] Comment on above: Performed By: #### C MREP #### [facility] [place] [facility] [address] [place] [address] Dr. Wilda Patel HDL NORMAL > or = 60 mg/dl - LO W CARDIOVASCULAR RISK <40 mg/dl - HIGH CARDIOVASCULAR RISK Normal [facility] Comment on above: Performed By: #### C MREP #### [facility] [place] [facility] [address] [place] [address] Dr. Wilda Patel LDL CALC NORMAL SEE BELOW Normal [facility] Comment on above: Result Comment: <100 mg/dl OPTIMAL 100 - 129 mg/dl NEAR OR ABOVE OPTIMAL 130 - 159 mg/dl BORDERLINE HIGH 160 - 189 mg/dl HIGH >190 mg/dl VERY HIGH Performed By: #### C MREP #### [facility] [place] [facility] [address] [place], [place] [address] Dr. Wilda Patel Triglyceride [Mass/Vol] 233 mg/dL Critically high <=150 [facility] [place] [facility] Comment on above: Performed By: #### C MREP #### [facility] [place] [facility] [address] [place], [place] [address] Dr. Wilda Patel VLDL CALC 46.6 mg/dL Normal [facility] [place] [facility] Comment on above: Performed By: #### C MREP #### [facility] [place] [facility] [address] [place] [address] [id number] [address] Wilda Patel MAGNESIUMon 07-22-2022 Magnesium [Mass/Vol] 2.3 mg/dL Normal 1.8-2.4 [facility] [place] [facility] Comment on above: Performed By: #### B MP, MG #### [facility] [place] [facility] [address] [place] [address] Dr. Wilda Patel MRI BRAIN WO CONon 2 MRI BRAIN WO CON EXAMINATION: MRI BRAIN WO CON, 07/22/2022 1:53 AM EST HISTORY: Right hemiparesis COMPARISON: None. TECHNIQUE: MRI of the brain was performed without IV contrast. FINDINGS: CEREBRUM: No edema, hemorrhage, mass, acute infarction, or inappropriate atrophy. CEREBELLUM: No edema, hemorrhage, mass, acute infarction, or inappropriate atrophy. BRAINSTEM: No edema, hemorrhage, mass, acute infarction, or inappropriate atrophy. CSF SPACES: Ventricles, cisterns, and sulci are appropriate for age. No hydrocephalus, subarachnoid hemorrhage, or mass. SKULL: No mass or other significant visible lesion. SINUSES: Limited views demonstrate no significant mucosal thickening or fluid. ORBITS: Limited views are unremarkable. OTHER: Negative. IMPRESSION: No acute intracranial abnormality. No acute infarct Electronically authenticated by: CAROLYN REDDY Date: 2022-07-22 15:28 Normal [facility] [place] [facility] PROF CHEM 8 (BAS METB)on Anion gap [Moles/Vol] 16.0 mmol/L Normal [facility] Comment on above: Performed By: #### B MP, MG #### [facility] [place] [facility] [address] [place] [address] Dr. Wilda Patel Calcium [Mass/Vol] 8.3 mg/dL Critically low 8.5-10.1 [facility] Comment on above: Performed By: #### B MP, MG #### [facility] [place] [facility] [address] [place] [address] Dr. Wilda Patel Chloride [Moles/Vol] 100 mmol/L Normal 98-107 [facility] Comment on above: Performed By: #### B MP, MG #### [facility] [place] [facility] [address] [place] [address] Dr. Wilda Patel CO2 [Moles/Vol] 21.3 mmol/L Normal 21.0-32.0 [facility] Comment on above: Performed By: #### B MP, MG #### [facility] [place] [facility] [address] [place] [address] Dr. Wilda Patel Creatinine [Mass/Vol] 0.70 mg/dL Normal 0.70-1.30 [facility] Comment on above: Performed By: #### B MP, MG #### [facility] [place] [facility] [address] [place] [address] Dr. Wilda Patel EGFR-AF GABONESE >60 Normal >=60 [facility] Comment on above: Performed By: #### B MP, MG #### [facility] [place] [facility] [address] [place] [address] Dr. Wilda Patel EGFR-NON AF GABONESE >60 Normal >=60 [facility] Comment on above: Performed By: #### B MP, MG #### [facility] [place] [facility] [address] [place] [address] Dr. Wilda Patel Glucose [Mass/Vol] 92 mg/dL Normal 74-106 [facility] Comment on above: Performed By: #### B MP, MG #### [facility] [place] [facility] [address] [place] [address] Dr. Wilda Patel Potassium [Moles/Vol] 3.3 mmol/L Critically low 3.5-5.1 [facility] Comment on above: Performed By: #### B MP, MG #### [facility] [place] [facility] [address] [place] [address] Dr. Wilda Patel Sodium [Moles/Vol] 134 mmol/L Critically low 136-145 [facility] Comment on above: Performed By: #### B MP, MG #### [facility] [place] [facility] [address] [place] [address] Dr. Wilda Patel Urea nitrogen [Mass/Vol] 12.0 mg/dL Normal 7.0-18.0 [facility] Comment on above: Performed By: #### B MP, MG #### [facility] [place] [facility] [address] [place] [address] Dr. Wilda Patel Urea nitrogen/Creatinine [Mass ratio] 17.1 mg/mg Normal [facility] Comment on above: Performed By: #### B MP, MG #### [facility] [place] [facility] [address] [place] [address] Dr. Wilda Patel TSHon 07-22-2022 TSH 33.049 uIU/mL Critically high 0.358-3.740 [facility] Comment on above: Performed By: #### L IPID, TSH #### [facility] [place] [facility] [address] [place] [address] Dr. Wilda Patel XR CHEST 1 Von 07-22-2022 XR CHEST 1 V EXAMINATION: XR CHES T 1 V HISTORY: Chest pain COMPARISON: Portable chest 06/14/2021 TECHNIQUE: Portable chest FINDINGS: The lung parenchyma is free of consolidation or infiltrate. No pneumothorax or pleural effusion. The cardiac, mediastinal and hilar contours are normal. The visualized osseous structures exhibit no gross abnormality. IMPRESSION: No acute cardiopulmonary abnormality. Electronically authenticated by: CAROLYN TRACY Date: 2022-07-21 22:18 Normal [facility] XR FOREIGN BODY EYEon 2021 XR FOREIGN BODY EYE EXAMINATION: XR FOREIGN BODY EYE HISTORY: Foreign body in eye COMPARISON: No relevant comparison available. FINDINGS: ORBITS: Negative for a metallic foreign body. OTHER: Negative. IMPRESSION: No metallic foreign body in the orbits Electronically authenticated by: CAROLYN REDDY Date: 2022-07-22 12:09 Normal [facility] [place] [facility] CARDIAC KEON ADMITon 022 CK [Catalytic activity/Vol] 123 U/L Normal 39-308 [facility] [place] [facility] Comment on above: Performed By: #### C MREP #### [facility] [place] [facility] [address] [address] [address] Wilda Patel CK.MB [Mass/Vol] 3.11 ng/mL Normal <=3.60 [facility] Comment on above: Performed By: #### C MREP #### [facility] [place] [facility] [address] [address] [address] Wilda Patel HSTROP 23.3 pg/mL Normal 4.0-76.1 [facility] [place] [facility] Comment on above: Result Comment: CUT- OFF POINTS HAVE BEEN ESTABLISHED BASED ON THE FOURTH UNIVERSAL DEFINITIONS OF MYOCARDIAL INFARCTION. THE UPPER REFERENCE LIMIT (URL) OF TROPONIN, DEFINED THE 99TH PERCENTILE OF cTnI DISTRIBUTION IN A REFERENCE POPULATION, HAS BEEN CONFIRMED THE DECISION THRESHOLD FOR [place] DIAGNOSIS. Performed By: #### C MREP #### [facility] [place] [facility] [address] [address] [address] Wilda Patel TRENA 136 ng/mL Critically high 16-96 [facility] Comment on above: Performed By: #### C MREP #### [facility] [place] [facility] [address] [address] [address] Wilda Patel CBC AUTO DIFFon 07-21-2022 BASO # 0.0 103/ul Normal 0.0-0.1 [facility] [place] [facility] Comment on above: Performed By: #### E RUR #### [facility] [place] [facility] [address] [place] [address] Dr. Wilda Patel Basophils/100 WBC (Bld) 0.3 % Normal 0.2-2.0 [facility] [place] [facility] Comment on above: Performed By: #### E RUR #### [facility] [place] [facility] [address] [place] [address] Dr. Wilda Patel EO # 0.0 103/ul Normal 0.0-0.7 [facility] [place] [facility] Comment on above: Performed By: #### E RUR #### [facility] [place] [facility] [address] [place] [address] Dr. Wilda Patel Eosinophils/100 WBC (Bld) 0.1 % Critically low 0.9-7.0 [facility] Comment on above: Performed By: #### E RUR #### [facility] [place] [facility] [address] [place] [address] Dr. Wilda Patel Erythrocyte distribution width (RBC) [Ratio] 12.3 % Normal 11.0-15.0 [facility] Comment on above: Performed By: #### E RUR #### [facility] [place] [facility] [address] [place] [address] Dr. Wilda Patel Hematocrit (Bld) [Volume fraction] 47.4 % Normal 42.0-54.0 [facility] Comment on above: Performed By: #### E RUR #### [facility] [place] [facility] [address] [place] [address] Dr. Wilda Patel Hemoglobin (Bld) [Mass/Vol] 16.8 g/dL Normal 14.0-18.0 [facility] Comment on above: Performed By: #### E RUR #### [facility] [place] [facility] [address] [place] [address] Dr. Wilda Patel IG # 0.04 10e3/ul Critically high 0.00-0.03 [facility] Comment on above: Performed By: #### E RUR #### [facility] [place] [facility] [address] [place] [address] Dr. Wilda Patel IG % 0.4 % Normal 0.0-0.5 [facility] [place] [facility] Comment on above: Performed By: #### E RUR #### [facility] [place] [facility] [address] [place] [address] Dr. Wilda Patel LYMPH # 1.6 103/ul Normal 1.2-3.8 [facility] [place] [facility] Comment on above: Performed By: #### E RUR #### [facility] [place] [facility] [address] [place] [address] Dr. Wilda Patel Lymphocytes/100 WBC (Bld) 15.7 % Critically low 20.5-60.0 [facility] Comment on above: Performed By: #### E RUR #### [facility] [place] [facility] [address] [address] [address] Wilda Patel MANUAL DIFF REQ NO Normal [facility] Comment on above: Performed By: #### E RUR #### [facility] [place] [facility] [address] [place] [address] Dr. Wilda Patel MCH (RBC) [Entitic mass] 32.9 pg Normal 25.9-34.0 [facility] [place] [facility] Comment on above: Performed By: #### E RUR #### [facility] [place] [facility] [address] [address] [address] Wilda Patel MCHC (RBC) [Mass/Vol] 35.4 g/dL Critically high 29.9-35.2 [facility] [place] [facility] Comment on above: Performed By: #### E RUR #### [facility] [place] [facility] [address] [place] [address] Dr. Wilda Patel MCV (RBC) [Entitic vol] 92.9 fL Normal 80.0-94.0 [facility] [place] [facility] Comment on above: Performed By: #### E RUR #### [facility] [place] [facility] [address] [place] [address] Dr. Wilda Patel MONO # 0.9 103/ul Critically high 0.3-0.8 [facility] Comment on above: Performed By: #### E RUR #### [facility] [place] [facility] [address] [place] [address] Dr. Wilda Patel Monocytes/100 WBC (Bld) 9.3 % Normal 1.7-12.0 [facility] [place] [facility] Comment on above: Performed By: #### E RUR #### [facility] [place] [facility] [address] [place] [address] Dr. Wilda Patel NEUT # 7.4 103/ul Critically high 1.4-6.5 [facility] Comment on above: Performed By: #### E RUR #### [facility] [place] [facility] [address] [place] [address] Dr. Wilda Patel Neutrophils/100 WBC (Bld) 74.2 % Normal 43.0-75.0 [facility] [place] [facility] Comment on above: Performed By: #### E RUR #### [facility] [place] [facility] [address] [address] [address] Wilda Patel Platelet mean volume (Bld) [Entitic vol] 9.6 fL Normal 9.5-13.5 [facility] Comment on above: Performed By: #### E RUR #### [facility] [place] [facility] [address] [address] [address] Wilda Patel PLT 216 103/ul Normal 150-450 [facility] Comment on above: Performed By: #### E RUR #### [facility] [place] [facility] [address] [place] [address] Dr. Wilda Patel RBC 5.10 106/ul Normal 4.70-6.10 [facility] Comment on above: Performed By: #### E RUR #### [facility] [place] [facility] [address] [place] [address] Dr. Wilda Patel WBC 9.9 103/ul Normal 4.0-11.0 [facility] Comment on above: Performed By: #### E RUR #### [facility] [place] [facility] [address] [place] [address] Dr. Wilda Patel POINT OF CARE GLUCOSEon 06-26 Glucose [Mass/Vol] 113 mg/dL Critically high 74-106 [facility] Comment on above: Performed By: #### E RUR #### [facility] [place] [facility] [address] [place] [address] Dr. Wilda Patel PROF 14(COMP METB)on 022 Albumin [Mass/Vol] 3.9 g/dL Normal 3.4-5.0 [facility] Comment on above: Performed By: #### C MREP #### [facility] [place] [facility] [address] [place] [address] Dr. Wilda Patel Albumin/Globulin [Mass ratio] 1.0 {ratio} Normal [facility] Comment on above: Performed By: #### C MREP #### [facility] [place] [facility] [address] [place] [address] Dr. Wilda Patel ALP [Catalytic activity/Vol] 137 U/L Critically high 46-116 [facility] Comment on above: Performed By: #### C MREP #### [facility] [place] [facility] [address] [address] [address] Wilda Patel ALT [Catalytic activity/Vol] 16 U/L Normal 16-63 [facility] Comment on above: Performed By: #### C MREP #### [facility] [place] [facility] [address] [address] [address] Wilda Patel Anion gap [Moles/Vol] 16.7 mmol/L Normal [facility] Comment on above: Performed By: #### C MREP #### [facility] [place] [facility] [address] [address] [address] Wilda Patel AST [Catalytic activity/Vol] 18 U/L Normal 15-37 [facility] Comment on above: Performed By: #### C MREP #### [facility] [place] [facility] [address] [address] [address] Wilda Patel Bilirubin [Mass/Vol] 2.1 mg/dL Critically high 0.2-1.0 [facility] Comment on above: Performed By: #### C MREP #### [facility] [place] [facility] [address] [address] [address] Wilda Patel Calcium [Mass/Vol] 9.2 mg/dL Normal 8.5-10.1 [facility] Comment on above: Performed By: #### C MREP #### [facility] [place] [facility] [address] [address] [address] Wilda Patel Chloride [Moles/Vol] 96 mmol/L Critically low 98-107 [facility] Comment on above: Performed By: #### C MREP #### [facility] [place] [facility] [address] [address] [address] Wilda Patel CO2 [Moles/Vol] 23.8 mmol/L Normal 21.0-32.0 [facility] Comment on above: Performed By: #### C MREP #### [facility] [place] [facility] [address] [address] [address] Wilda Patel Creatinine [Mass/Vol] 0.92 mg/dL Normal 0.70-1.30 [facility] Comment on above: Performed By: #### C MREP #### [facility] [place] [facility] [address] [address] [address] Wilda Patel EGFR-AF GABONESE >60 Normal >=60 [facility] Comment on above: Performed By: #### C MREP #### [facility] [place] [facility] [address] [address] [address] Wilda Patel EGFR-NON AF GABONESE >60 Normal >=60 [facility] Comment on above: Performed By: #### C MREP #### [facility] [place] [facility] [address] [address] [address] Wilda Patel Globulin (S) [Mass/Vol] 4.0 g/dL Normal [facility] Comment on above: Performed By: #### C MREP #### [facility] [place] [facility] [address] [place] [address] Dr. Wilda Patel Glucose [Mass/Vol] 112 mg/dL Critically high 74-106 [facility] Comment on above: Performed By: #### C MREP #### [facility] [place] [facility] [address] [address] [address] Wilda Patel Potassium [Moles/Vol] 3.5 mmol/L Normal 3.5-5.1 [facility] Comment on above: Performed By: #### C MREP #### [facility] [place] [facility] [address] [place] [address] Dr. Wilda Patel Protein [Mass/Vol] 7.9 g/dL Normal 6.4-8.2 [facility] Comment on above: Performed By: #### C MREP #### [facility] [place] [facility] [address] [place] [address] Dr. Wilda Patel Sodium [Moles/Vol] 133 mmol/L Critically low 136-145 [facility] Comment on above: Performed By: #### C MREP #### [facility] [place] [facility] [address] [address] [address] Wilda Patel Urea nitrogen [Mass/Vol] 15.0 mg/dL Normal 7.0-18.0 [facility] Comment on above: Performed By: #### C MREP #### [facility] [place] [facility] [address] [address] [address] Wilda Patel Urea nitrogen/Creatinine [Mass ratio] 16.3 mg/mg Normal [facility] Comment on above: Performed By: #### C MREP #### [facility] [place] [facility] [address] [place] [address] Dr. Wilda Patel PROTIMEon 07-21-2022 INR Coag (PPP) [Relative time] 1.00 {INR} Normal [facility] Comment on above: Performed By: #### P TT, PT #### [facility] [place] [facility] [address] [place] [address] Dr. Wilda Patel INR GUIDELINES SEE BELOW Normal [facility] Comment on above: Result Comment: BREA RED INR: 2.0 - 3.0 CONDITIONS NOT LISTED BELOW 2.5 - 3.5 FOR PROSTHETIC HEART VALVE REPLACEMENT 2.5 - 3.5 RECURRENT THROMBOSIS Performed By: #### P TT, PT #### [facility] [place] [facility] [address] [place] [address] Dr. Wilda Patel PT Coag (PPP) [Time] 10.8 s Normal 9.0-11.6 [facility] Comment on above: Performed By: #### P TT, PT #### [facility] [place] [facility] [address] [place] [address] Dr. Wilda Patel PTTon 07-21-2022 aPTT Coag (Bld) [Time] 28.8 s Normal 22.3-36.2 [facility] Comment on above: Performed By: #### P TT, PT #### [facility] [place] [facility] [address] [place] [address] Dr. Wilda Patel Free T4 (Free Thyroxine)on 08-08-2021 Free T4 [Mass/Vol] 0.60 ng/dL Low 0.61-1.12 [facility] Comment on above: Performed By: #### V [id number], TSH3 wRFLX, T4F #### [facility] [address] No Panel InformationOrdered By: Medhat Baltazar on 06-08-2022 25-Hydroxy Vitamin D Total 8.1 ng/mL 30-100 [facility] Comment on above: VITAMIN D STATUS 25( [place])VITAMIN D RANGE (ng/mL) Deficient <20 Insufficient 20 to <30Sufficient 30 to 100Reference: Franklyn Joseph, Isaac FRANCES et al. Evaluation,treatment, and prevention of vitamin D deficiency; an Endocrine Society clinical practice guideline. JCEM. 2010; 96(7):191-. TSH DL <= 0.005 mIU/L QnOrde red By: Medhat Baltazar on 06-08-2022 TSH Qn 28.54 m[IU]/L 0.45-5.33 [facility] Thyroid Stim Hormone w/Rflxo n 06-08-2022 Thyroid Stim Hormone w/Rflx 28.54 u[iU]/mL High 0.45-5.33 [facility] Comment on above: Performed By: #### L IPID, TSH3 wRFLX, CBC, [id number], T4F, CMP, [id number], LDLD, A1C WTH eA #### [facility] [address] Thyroxine (T4) free [Mass/vo lume] in Serum or PlasmaOrdered By: Medhat Baltazar on 06-08-2022 Free T4 [Mass/Vol] 0.60 ng/dL 0.61-1.12 [facility] Vitamin D 25 Hydroxy Totalon 06-08-2022 Vitamin D 25 Hydroxy Total 8.1 ng/mL Low 30-100 [facility] Comment on above: Result Comment: MAIRA MIN D STATUS 25(OH)VITAMIN D RANGE (ng/mL) Deficient <20 Insufficient 20 to <30 Sufficient 30 to 100 Reference: Franklyn Joseph, Isaac FRANCES, et al. Evaluation,treatment, and prevention of vitamin D deficiency; an Endocrine Society clinical practice guideline. JCEM. 2010; 96(7):1911-. PERFORMED BY: [facility] [address] [place] [address] PATHOLOGIST [employer] MANA[employer] MARCO ANTONIO FINLEY M.D. Performed By: #### L IPID, TSH3 wRFLX, CBC, [id number], T4F, CMP, [id number], LDLD, A1C [facility] eA #### [facility] [address] MUGA SCAN INJECTIONon [facility] MUGA SCAN INJECTION Patient Name: ELICEO KENNY STUDY: MUGA Performing facility: [facility], [address] [place] [address], [address], [address] Provider: Darlin Ocampo MD, [facility] PCP: Dr. Kelley Supervising provider: Ben Meyers MD INDICATION: Encounter for ICD HISTORY: Gender: M; Age: 56 y/o ; Height: 167.64 cm; Weight: 97.5866133 kg. CAD; High Cholesterol; Previous [place]; HTN; COPD; Ischemic cardiomyopathy Currently smoking. Cardiac catheterization on 2018. PTCA on 2018. COMPARISON: Previous nuclear testing completed [id number] [facility]uga at [facility]. ACCESSION NUMBER(S): [id number]; [id number] ORDERING CLINICIAN: AARON OCAMPO TECHNIQUE: The patient received an IV injection of 3 ml of stannous pyrophosphate (PYP) using the in-vivo method of labeling red blood cells. After 15 minutes the patient received another IV injection of 27.0 mCi of Technetium 99m pertechnetate. Planar images of the left ventricle were obtained in the BAUTISTA 45, Lt Lateral and anterior projections. FINDINGS: The right ventricle was mildly hypokinetic. The left ventricle was normal in size. Regional wall motion was abnormal. Global resting LVEF was globally [id number] at %. IMPRESSION: Mild resting right ventricular hypokinesis Abnormalresting left ventricular function. Left ventricular ejection fraction is 35%. No change when compared to prior study Electronically signed by: BEN MEYERS MD Normal [facility] No Panel Informationon 05-06 Normal -[place] [id number] DO Work Phone: A1C with Estimated Average G boris 03-12-2022 Glucose [Mass/Vol] 111 mg/dL Normal [facility] Comment on above: Result Comment: PERF ORMED BY: [facility] [address] [facility] [place] [address] PATHOLOGIST SHOP MANAGER MARCO ANTONIO FINLEY M.D. Performed By: #### L IPID, TSH3 wRFLX, CBC, [id number], T4F, CMP, [id number], LDLD, A1C WTH eA #### [facility] [address] HbA1c (Bld) [Mass fraction] 5.5 % Normal 4.3-5.6 [facility] Comment on above: Result Comment: Incr eased risk for diabetes: 5.7 - 6.4 diabetes: >6.4 glycemic control for adults with diabetes: <7.0 Performed By: #### L IPID, TSH3 wRFLX, CBC, [id number], T4F, CMP, [id number], LDLD, A1C WTH eA #### [address] Basophils Auto (Bld) [#/Vol] Ordered By: Medhat Baltazar on 03-12-2022 Basophils (Bld) [#/Vol] 0.0 10*3/uL 0.0-0.2 [facility] Basophils/100 WBC Auto (Bld) Ordered By: Medhat Baltazar on 03-12-2022 Basophils/100 WBC (Bld) 0.6 % . [facility] Blood hemoglobin measurement (mass/volume)Ordered By: Medhat Baltazar on 03-12-2022 Hemoglobin (Bld) [Mass/Vol] 14.8 g/dL 13.0-17.0 [facility] Blood leukocytes automated c ount (number/volume)Ordered By: Medhat Baltazar on 03-12-2022 WBC (Bld) [#/Vol] 5.3 10*3/uL 4.5-11.0 [facility] Body fluid albumin measureme nt (mass/volume)Ordered By: Medhat Baltazar on 03-12-2022 Albumin (Body fld) [Mass/Vol] 3.7 g/dL 3.2-5.5 [facility] Cholesterol [Mass/volume] in Serum or PlasmaOrdered By: Medhat Baltazar on 03-12-2022 Cholesterol [Mass/Vol] 157 mg/dL 140-200 [facility] Comment on above: Chol less than 200 m g/dl low risk Chol 201-239 mg/dl borderline risk Chol 240 mg/dl and greater high risk Chol less than 200 m g/dl low riskChol 201-239 mg/dl borderline riskChol 240 mg/dl and greater high risk Cholesterol in LDL Calc [Mas s/Vol]Ordered By: Medhat Baltazar on 03-12-2022 Cholesterol in LDL [Mass/Vol] 42 mg/dL 0-100 [facility] Comment on above: LDL ATP III CLASSIFI CATION LDL less than 100 mg/dL Optimal LDL 100-129 mg/dL Near or above optimal LDL 130-159 mg/dL Borderline high LDL 160-189 mg/dL High LDL greater than 189 mg/dL Very high LDL ATP III CLASSIFI CATIONLDL less than 100 mg/dL OptimalLDL 100-129 mg/dL Near or above optimalLDL 130-159 mg/dL Borderline highLDL 160-189 mg/dL HighLDL greater than 189 mg/dL Very high Cholesterol in VLDL Calc [Ma ss/Vol]Ordered By: Medhat Baltazar on 03-12-2022 Cholesterol in VLDL [Mass/Vol] 48 mg/dL [facility] Complete Blood Count Auto Di ffon 03-12-2022 Basophils (Bld) [#/Vol] 0.0 10*3/uL Normal 0.0-0.2 [facility] Comment on above: Result Comment: PERF ORMED BY: [place] [address] PATHOLOGIST SHOP MANAGER MARCO ANTONIO FINLEY M.D. Performed By: #### L IPID, TSH3 wRFLX, CBC, [id number], T4F, CMP, [id number], LDLD, A1C WTH eA #### [facility] [address] [place] [address] Basophils/100 WBC (Bld) 0.6 % Normal . [facility] Comment on above: Performed By: #### L IPID, TSH3 wRFLX, CBC, [id number], T4F, CMP, [id number], LDLD, A1C WTH eA #### [facility] [address] Eosinophils (Bld) [#/Vol] 0.0 10*3/uL Normal 0.0-0.45 [facility] Comment on above: Performed By: #### L IPID, TSH3 wRFLX, CBC, [id number], T4F, CMP, [id number], LDLD, A1C WTH eA #### [place] [address] [place] Eosinophils/100 WBC (Bld) 0.4 % Normal . [facility] Comment on above: Performed By: #### L IPID, TSH3 wRFLX, CBC, [id number], T4F, CMP, [id number], LDLD, A1C WTH eA #### [address] Erythrocyte distribution width (RBC) [Ratio] 13.7 % Normal 12.0-14.8 [facility] Comment on above: Performed By: #### L IPID, TSH3 wRFLX, CBC, [id number], T4F, CMP, [id number], LDLD, A1C WTH eA #### [address] Hematocrit (Bld) [Volume fraction] 43.7 % Normal 38.8-50.0 [facility] Comment on above: Performed By: #### L IPID, TSH3 wRFLX, CBC, [id number], T4F, CMP, [id number], LDLD, A1C WTH eA #### [address] Hemoglobin (Bld) [Mass/Vol] 14.8 g/dL Normal 13.0-17.0 [facility] Comment on above: Performed By: #### L IPID, TSH3 wRFLX, CBC, [id number], T4F, CMP, [id number], LDLD, A1C WTH eA #### [address] Lymphocytes (Bld) [#/Vol] 1.6 10*3/uL Normal 1.00-4.8 [facility] Comment on above: Performed By: #### L IPID, TSH3 wRFLX, CBC, [id number], T4F, CMP, [id number], LDLD, A1C WTH eA #### [facility] [address] Lymphocytes/100 WBC (Bld) 29.2 % Normal . [facility] Comment on above: Performed By: #### L IPID, TSH3 wRFLX, CBC, [id number], T4F, CMP, [id number], LDLD, A1C WTH eA #### [facility] [address] MCH (RBC) [Entitic mass] 34.1 pg Normal 27.5-35.2 [facility] Comment on above: Performed By: #### L IPID, TSH3 wRFLX, CBC, [id number], T4F, CMP, [id number], LDLD, A1C WTH eA #### [address] MCV (RBC) [Entitic vol] 101.1 fL High 83.5-101 [facility] Comment on above: Performed By: #### L IPID, TSH3 wRFLX, CBC, [id number], T4F, CMP, [id number], LDLD, A1C WTH eA #### [address] Mean Corpuscular HGB Conc 33.8 g/dL Normal 32.5-35.6 [facility] Comment on above: Performed By: #### L IPID, TSH3 wRFLX, CBC, [id number], T4F, CMP, [id number], LDLD, A1C WTH eA #### [address] Monocytes (Bld) [#/Vol] 0.4 10*3/uL Normal 0.0-0.8 [facility] Comment on above: Performed By: #### L IPID, TSH3 wRFLX, CBC, [id number], T4F, CMP, [id number], LDLD, A1C WTH eA #### [facility] [address] [place] [address] [place] Monocytes/100 WBC (Bld) 7.0 % Normal . [facility] Comment on above: Performed By: #### L IPID, TSH3 wRFLX, CBC, [id number], T4F, CMP, [id number], LDLD, A1C WTH eA #### [place] [address] [place] Neutrophils (Bld) [#/Vol] 3.3 10*3/uL Normal 1.8-7.7 [facility] Comment on above: Performed By: #### L IPID, TSH3 wRFLX, CBC, [id number], T4F, CMP, [id number], LDLD, A1C WTH eA #### [address] Neutrophils/100 WBC (Bld) 62.8 % Normal . [facility] Comment on above: Performed By: #### L IPID, TSH3 wRFLX, CBC, [id number], T4F, CMP, [id number], LDLD, A1C WTH eA #### [place] [address] [place] Nucleated RBC/100 WBC (Bld) [Ratio] 0.1 % Normal 0-0.5 [facility] Comment on above: Performed By: #### L IPID, TSH3 wRFLX, CBC, [id number], T4F, CMP, [id number], LDLD, A1C WTH eA #### [place] [address] [place] Platelet mean volume (Bld) [Entitic vol] 8.7 fL Normal 6.6-10.1 [facility] Comment on above: Performed By: #### L IPID, TSH3 wRFLX, CBC, [id number], T4F, CMP, [id number], LDLD, A1C WTH eA #### [place] [address] [place] Platelets (Bld) [#/Vol] 218 10*3/uL Normal 150-450 [facility] Comment on above: Performed By: #### L IPID, TSH3 wRFLX, CBC, [id number], T4F, CMP, [id number], LDLD, A1C WTH eA #### [facility] [address] [place] [address] [facility] RBC (Bld) [#/Vol] 4.33 10*6/uL Normal 3.90-5.60 [facility] Comment on above: Performed By: #### L IPID, TSH3 wRFLX, CBC, [id number], T4F, CMP, [id number], LDLD, A1C WTH eA #### [facility] [address] WBC (Bld) [#/Vol] 5.3 10*3/uL Normal 4.5-11.0 [facility] Comment on above: Performed By: #### L IPID, TSH3 wRFLX, CBC, [id number], T4F, CMP, [id number], LDLD, A1C WTH eA #### [facility] [address] Comprehensive Metabolic Pane jorge 03-12-2022 Albumin [Mass/Vol] 3.7 g/dL Normal 3.2-5.5 [facility] Comment on above: Performed By: #### L IPID, TSH3 wRFLX, CBC, [id number], T4F, CMP, [id number], LDLD, A1C WTH eA #### [facility] [address] [place] [id number] [facility] Albumin/Globulin [Mass ratio] 1.3 {ratio} Normal [facility] Comment on above: Performed By: #### L IPID, TSH3 wRFLX, CBC, [id number], T4F, CMP, [id number], LDLD, A1C WTH eA #### [facility] [address] [place] [id number] [facility] ALP [Catalytic activity/Vol] 87 U/L Normal 32-92 [facility] Comment on above: Performed By: #### L IPID, TSH3 wRFLX, CBC, [id number], T4F, CMP, [id number], LDLD, A1C WTH eA #### [facility] [address] [place] [id number] [facility] ALT [Catalytic activity/Vol] 39 U/L Normal 10-60 [facility] Comment on above: Performed By: #### L IPID, TSH3 wRFLX, CBC, [id number], T4F, CMP, [id number], LDLD, A1C WTH eA #### [facility] [address] [place] [id number] [facility] AST [Catalytic activity/Vol] 23 U/L Normal 10-42 [facility] Comment on above: Performed By: #### L IPID, TSH3 wRFLX, CBC, [id number], T4F, CMP, [id number], LDLD, A1C WTH eA #### [address] Bilirubin [Mass/Vol] 1.5 mg/dL High 0.3-1.2 [facility] Comment on above: Result Comment: Samp les from patients who have taken Naproxen have shown spurious elevation in Total Bilirubin levels. A metabolite of Naproxen, O-desmethylnaproxen, has been shown to interfere with the Jendrassik-Grof method for measuring Total Bilirubin. Performed By: #### L IPID, TSH3 wRFLX, CBC, [id number], T4F, CMP, [id number], LDLD, A1C WTH eA #### [place] [id number] [facility] Calcium [Mass/Vol] 9.1 mg/dL Normal 8.2-10.2 [facility] Comment on above: Performed By: #### L IPID, TSH3 wRFLX, CBC, [id number], T4F, CMP, [id number], LDLD, A1C WTH eA #### [place] [id number] [place] Chloride [Moles/Vol] 104 mmol/L Normal 95-114 [facility] Comment on above: Performed By: #### L IPID, TSH3 wRFLX, CBC, [id number], T4F, CMP, [id number], LDLD, A1C WTH eA #### [facility] [address] [place] [id number] [facility] CO2 [Moles/Vol] 20.0 mmol/L Low 22.0-30.0 [facility] Comment on above: Performed By: #### L IPID, TSH3 wRFLX, CBC, [id number], T4F, CMP, [id number], LDLD, A1C WTH eA #### [facility] [address] Creatinine [Mass/Vol] 0.73 mg/dL Normal 0.64-1.27 [facility] Comment on above: Performed By: #### L IPID, TSH3 wRFLX, CBC, [id number], T4F, CMP, [id number], LDLD, A1C WTH eA #### [facility] [address] Estimated GFR ( Marisol > 60 [facility] Comment on above: Result Comment: GFR estimated reference range: According to KDOQI guidelines, <60 ml/min/1.73m2 is sufficient to diagnose a patient with chronic kidney disease. Performed By: #### L IPID, TSH3 wRFLX, CBC, [id number], T4F, CMP, [id number], LDLD, A1C WTH eA #### [facility] [address] Estimated GFR (Non- Am > 60 [facility] Comment on above: Performed By: #### L IPID, TSH3 wRFLX, CBC, [id number], T4F, CMP, [id number], LDLD, A1C WTH eA #### [facility] [address] [place] [id number] [facility] Globulin (S) [Mass/Vol] 2.9 g/dL [facility] Comment on above: Performed By: #### L IPID, TSH3 wRFLX, CBC, [id number], T4F, CMP, [id number], LDLD, A1C WTH eA #### [facility] [address] Glucose [Mass/Vol] 86 mg/dL Normal 70-100 [facility] Comment on above: Result Comment: [facility] Glucose Reference Range is dependent on time and content of last meal. Glucose of more than 200 mg/dL in a nonstressed, ambulatory subject supports the diagnosis of Diabetes Mellitus. ADA recommended reference range Performed By: #### L IPID, TSH3 wRFLX, CBC, [id number], T4F, CMP, [id number], LDLD, A1C WTH eA #### [address] Potassium [Moles/Vol] 4.1 mmol/L Normal 3.5-5.1 [facility] Comment on above: Performed By: #### L IPID, TSH3 wRFLX, CBC, [id number], T4F, CMP, [id number], LDLD, A1C WTH eA #### [facility] [address] Protein [Mass/Vol] 6.6 g/dL Normal 6.1-7.9 [facility] Comment on above: Performed By: #### L IPID, TSH3 wRFLX, CBC, [id number], T4F, CMP, [id number], LDLD, A1C WTH eA #### [facility] [address] [place] [id number] [place] Sodium [Moles/Vol] 133 mmol/L Low 136-146 [facility] Comment on above: Performed By: #### L IPID, TSH3 wRFLX, CBC, [id number], T4F, CMP, [id number], LDLD, A1C WTH eA #### [facility] [address] [place] [id number] [place] Urea nitrogen [Mass/Vol] 6 mg/dL Low 9-23 [facility] Comment on above: Performed By: #### L IPID, TSH3 wRFLX, CBC, [id number], T4F, CMP, [id number], LDLD, A1C WT eA #### [facility] [address] Creatinine and Glomerular fi ltration rate.predicted panel (S/P/Bld)Ordered By: Medhat Baltazar on 03-12-2022 Creatinine [Mass/Vol] 0.73 mg/dL 0.64-1.27 [facility] Eosinophils Auto (Bld) [#/Vo l]Ordered By: Medhat Baltazar on 03-12-2022 Eosinophils (Bld) [#/Vol] 0.0 10*3/uL 0.0-0.45 [facility] Eosinophils/100 WBC Auto (Bl d)Ordered By: Medhat Baltazar on 03-12-2022 Eosinophils/100 WBC (Bld) 0.4 % . [facility] Erythrocyte distribution wid th Auto (RBC) [Ratio]Ordered By: Medhat Baltazar on 03-12-2022 Erythrocyte distribution width (RBC) [Ratio] 13.7 % 12.0-14.8 [facility] Estimated glomerular filtrat ion rate (GFR) non- AmericanOrdered By: Medhat Baltazar on 03-12-2022 GFR/1.73 sq M.predicted among non-blacks MDRD (S/P/Bld) [Vol rate/Area] > 60 mL/Min [facility] Folate [Mass/volume] in Seru m or PlasmaOrdered By: Medhat Baltazar on 03-12-2022 Folate [Mass/Vol] 7.2 ng/mL >5.9 [facility] Comment on above: Folate reference ran ge: >5.9 ng/ml The WHO technical consultation on folate and vitamin b12 deficiencies has determined that folate concentrations less than 4 ng/ml are considered deficient. Folate reference ran ge: >5.9 ng/mlThe WHO technical consultation on folate and vitamin [id number] has determined that folate concentrations lessthan 4 ng/ml are considered deficient. Free T4 (Free Thyroxine)on 0 03-12-2022 Free T4 [Mass/Vol] 0.41 ng/dL Low 0.61-1.12 [facility] Comment on above: Performed By: #### L IPID, TSH3 wRFLX, CBC, [id number], T4F, CMP, [id number], LDLD, A1C WTH eA #### [facility] [address] Globulin Calc (S) [Mass/Vol] Ordered By: Medhat Baltazar on 03-12-2022 Globulin (S) [Mass/Vol] 2.9 g/dL [facility] Glucose mean value [Mass/vol ume] in Blood Estimated from glycated hemoglobinOrdered By: Medhat Baltazar on 03-12-2022 Average glucose Estimated from glycated hemoglobin (Bld) [Mass/Vol] 111 mg/dL [facility] Hematocrit Auto (Bld) [Volum e fraction]Ordered By: Medhat Baltazar on 03-12-2022 Hematocrit (Bld) [Volume fraction] 43.7 % 38.8-50.0 [facility] Hemoglobin A1c percentageOrd ered By: Medhat Baltazar on 03-12-2022 HbA1c (Bld) [Mass fraction] 5.5 % 4.3-5.6 [facility] Comment on above: Increased risk for d iabetes: 5.7 - 6.4 diabetes: >6.4 glycemic control for adults with diabetes: <7.0 Increased risk for d iabetes: 5.7 - 6.4diabetes: >6.4glycemic control for adults with diabetes: <7.0 LDL Cholesterol Measuredon 0 03-12-2022 LDL Cholesterol Measured 64 mg/dL Normal 0-100 [facility] Comment on above: Result Comment: LDL ATP III CLASSIFICATION LDL less than 100 mg/dL Optimal LDL 100-129 mg/dL Near or above optimal LDL 130-159 mg/dL Borderline high LDL 160-189 mg/dL High LDL greater than 189 mg/dL Very high Performed By: #### L IPID, TSH3 wRFLX, CBC, [id number], T4F, CMP, [id number], LDLD, A1C WTH eA #### [facility] [address] Laboratory - Chemistry and C hemistry - challengeOrdered By: Medhat Baltazar on 03-12-2022 Cobalamin (Vitamin B12) [Mass/Vol] 376 pg/mL 180-914 [facility] Laboratory - Hematology and Cell countsOrdered By: Medhat Baltazar on 03-12-2022 Nucleated RBC/100 WBC (Bld) [Ratio] 0.1 % 0-0.5 [facility] Lipid Panelon 03-12-2022 Cholesterol [Mass/Vol] 157 mg/dL Normal 140-200 [facility] Comment on above: Result Comment: Chol less than 200 mg/dl low risk Chol 201-239 mg/dl borderline risk Chol 240 mg/dl and greater high risk Performed By: #### L IPID, TSH3 wRFLX, CBC, [id number], T4F, CMP, [id number], LDLD, A1C WTH eA #### [facility] [address] [place] [address] [place] Cholesterol in HDL [Mass/Vol] 66 mg/dL Normal 29-71 [facility] Comment on above: Result Comment: HDL CHOL ATP-III CLASSIFICATION Cardiovascular Risk HDL > or equal to 60 mg/dL LOW HDL < 40 mg/dL HIGH Performed By: #### L IPID, TSH3 wRFLX, CBC, [id number], T4F, CMP, [id number], LDLD, A1C WTH eA #### [facility] [address] [place] [address] [place] Cholesterol.total/Chol esterol in HDL [Mass ratio] 2.4 {ratio} Normal <5.0 [facility] Comment on above: Performed By: #### L IPID, TSH3 wRFLX, CBC, [id number], T4F, CMP, [id number], LDLD, A1C WTH eA #### [facility] [address] [place] [address] [place] LDL Cholesterol,Calculated 42 mg/dL Normal 0-100 [facility] Comment on above: Result Comment: LDL ATP III CLASSIFICATION LDL less than 100 mg/dL Optimal LDL 100-129 mg/dL Near or above optimal LDL 130-159 mg/dL Borderline high LDL 160-189 mg/dL High LDL greater than 189 mg/dL Very high Performed By: #### L IPID, TSH3 wRFLX, CBC, [id number], T4F, CMP, [id number], LDLD, A1C WTH eA #### [facility] [address] Triglyceride w/Reflex 243 mg/dL High 35-149 [facility] Comment on above: Result Comment: TRIG ATP III CLASSIFICATION TRIG less than 150 mg/dL Normal TRIG 150-199 mg/dL Borderline high TRIG 200-500 mg/dL High TRIG greater than 500 mg/dL Very high Standard traceable to the Center for Disease Conrtrol and Prevention (CDC) test method. Performed By: #### L IPID, TSH3 wRFLX, CBC, [id number], T4F, CMP, [id number], LDLD, A1C WTH eA #### [facility] [address] VLDL CHOLESTEROL 48 mg/dL Normal [facility] Comment on above: Performed By: #### L IPID, TSH3 wRFLX, CBC, [id number], T4F, CMP, [id number], LDLD, A1C WTH eA #### [facility] [address] Lymphocytes Auto (Bld) [#/Vo l]Ordered By: Medhat Baltazar on 03-12-2022 Lymphocytes (Bld) [#/Vol] 1.6 10*3/uL 1.00-4.8 [facility] Lymphocytes/100 WBC Auto (Bl d)Ordered By: Medhat Baltazar on 03-12-2022 Lymphocytes/100 WBC (Bld) 29.2 % . [facility] MCH Auto (RBC) [Entitic mass ]Ordered By: Medhat Baltazar on 03-12-2022 MCH (RBC) [Entitic mass] 34.1 pg 27.5-35.2 [facility] MCHC Auto (RBC) [Mass/Vol]Or dered By: Medhat Baltazar on 03-12-2022 MCHC (RBC) [Mass/Vol] 33.8 g/dL 32.5-35.6 [facility] MCV Auto (RBC) [Entitic vol] Ordered By: Medhat Baltazar on 03-12-2022 MCV (RBC) [Entitic vol] 101.1 fL 83.5-101 [facility] Monocytes Auto (Bld) [#/Vol] Ordered By: Medhat Baltazar on 03-12-2022 Monocytes (Bld) [#/Vol] 0.4 10*3/uL 0.0-0.8 [facility] Monocytes/100 WBC Auto (Bld) Ordered By: Medhat Baltazar on 03-12-2022 Monocytes/100 WBC (Bld) 7.0 % . [facility] Neutrophils Auto (Bld) [#/Vo l]Ordered By: Medhat Baltazar on 03-12-2022 Neutrophils (Bld) [#/Vol] 3.3 10*3/uL 1.8-7.7 [facility] Neutrophils/100 WBC Auto (Bl d)Ordered By: Medhat Baltazar on 03-12-2022 Neutrophils/100 WBC (Bld) 62.8 % . [facility] No Panel InformationOrdered By: Medhat Baltazar on 03-12-2022 25-Hydroxy Vitamin D Total 7.9 ng/mL 30-100 [facility] Comment on above: VITAMIN D STATUS 25( [place])VITAMIN D RANGE (ng/mL) Deficient <20 Insufficient 20 to <30 Sufficient 30 to 100 Reference: Franklyn Joseph, Isaac FRANCES, et al. Evaluation,treatment, and prevention of vitamin D deficiency; an Endocrine Society clinical practice guideline. JCEM. 2010; 96(7):1911-30. VITAMIN D STATUS 25( [place])VITAMIN D RANGE (ng/mL) Deficient <20 Insufficient 20 to <30Sufficient 30 to 100Reference: Franklyn Joseph, Isaac FRANCES, et al. Evaluation,treatment, and prevention of vitamin D deficiency; an Endocrine Society clinical practice guideline. JCEM. 2010; 96(7):1911-30. Estimated GFR () > 60 mL/Min [facility] Comment on above: GFR estimated refere nce range: According to KDOQI guidelines, <60 ml/min/1.73m2 is sufficient to diagnose a patient with chronic kidney disease. Pharmacy Creatinine Clearance (Chem N/A [facility] Platelet mean volume Auto (B ld) [Entitic vol]Ordered By: Medhat Baltazar on 03-12-2022 Platelet mean volume (Bld) [Entitic vol] 8.7 fL 6.6-10.1 [facility] Platelets Auto (Bld) [#/Vol] Ordered By: Medhat Baltazar on 03-12-2022 Platelets (Bld) [#/Vol] 218 10*3/uL 150-450 [facility] Protein [Mass/volume] in Ser um or PlasmaOrdered By: Medhat Baltazar on 03-12-2022 Protein [Mass/Vol] 6.6 g/dL 6.1-7.9 [facility] RBC Auto (Bld) [#/Vol]Ordere d By: Medhat Baltazar on 03-12-2022 RBC (Bld) [#/Vol] 4.33 10*6/uL 3.90-5.60 [facility] Serum or plasma alanine lara otransferase measurement without P-5'-P (enzymatic activiOrdered By: Medhat Baltazar on 03-12-2022 ALT No additional P-5'-P [Catalytic activity/Vol] 39 U/L 10-60 [facility] Serum or plasma albumin/glob ulin mass ratioOrdered By: Medhat Baltazar on 03-12-2022 Albumin/Globulin [Mass ratio] 1.3 {ratio} [facility] Serum or plasma alkaline refugio sphatase measurement (enzymatic activity/volume)Ordered By: Medhat Baltazar on 03-12-2022 ALP [Catalytic activity/Vol] 87 U/L 32-92 [facility] Serum or plasma aspartate am inotransferase measurement (enzymatic activity/volume)Ordered By: Medhat Baltazar on 03-12-2022 AST [Catalytic activity/Vol] 23 U/L 10-42 [facility] Serum or plasma calcium charlee urement (mass/volume)Ordered By: Medhat Baltazar on 03-12-2022 Calcium [Mass/Vol] 9.1 mg/dL 8.2-10.2 [facility] Serum or plasma chloride yvette surement (moles/volume)Ordered By: Medhat Baltazar on 03-12-2022 Chloride [Moles/Vol] 104 mmol/L 95-114 [facility] Serum or plasma cholesterol in LDL measurement (mass/volume)Ordered By: Medhat Baltazar on 03-12-2022 Cholesterol in LDL [Mass/Vol] 64 mg/dL 0-100 [facility] Comment on above: LDL ATP III CLASSIFI CATION LDL less than 100 mg/dL Optimal LDL 100-129 mg/dL Near or above optimal LDL 130-159 mg/dL Borderline high LDL 160-189 mg/dL High LDL greater than 189 mg/dL Very high LDL ATP III CLASSIFI CATIONLDL less than 100 mg/dL OptimalLDL 100-129 mg/dL Near or above optimalLDL 130-159 mg/dL Borderline highLDL 160-189 mg/dL HighLDL greater than 189 mg/dL Very high Serum or plasma glucose charlee urement (mass/volume)Ordered By: Medhat Baltazar on 03-12-2022 Glucose [Mass/Vol] 86 mg/dL 70-100 [facility] Comment on above: ADA recommended refe rence range Random Glucose Reference Range is dependent on time and content of last meal. Glucose of more than 200 mg/dL in a nonstressed, ambulatory subject supports the diagnosis of Diabetes Mellitus. ADA recommended refe rence rangeRandom Glucose Reference Range is dependent on time and content of last meal. Glucose of more than 200 mg/dL in a nonstressed, ambulatory subject supports the diagnosis of Diabetes Mellitus. Serum or plasma high density lipoprotein (HDL) cholesterol measurementOrdered By: Medhat Baltazar on 03-12-2022 Cholesterol in HDL [Mass/Vol] 66 mg/dL 29-71 [facility] Comment on above: HDL CHOL ATP-III CLA SSIFICATION Cardiovascular Risk HDL > or equal to 60 mg/dL LOW HDL < 40 mg/dL HIGH HDL CHOL ATP-III CLA SSIFICATION Cardiovascular RiskHDL > or equal to 60 mg/dL LOWHDL < 40 mg/dL HIGH Serum or plasma potassium me asurement (moles/volume)Ordered By: Medhat Baltazar on 03-12-2022 Potassium [Moles/Vol] 4.1 mmol/L 3.5-5.1 [facility] Serum or plasma sodium measu rement (moles/volume)Ordered By: Medhat Baltazar on 03-12-2022 Sodium [Moles/Vol] 133 mmol/L 136-146 [facility] Serum or plasma total biliru bin measurement (mass/volume)Ordered By: Medhat Baltazar on 03-12-2022 Bilirubin [Mass/Vol] 1.5 mg/dL 0.3-1.2 [facility] Comment on above: Samples from patient s who have taken Naproxen have shown spurious elevation in Total Bilirubin levels. A metabolite of Naproxen, O-desmethylnaproxen, has been shown to interfere with the Christiana-Pb method for measuring Total Bilirubin. Serum or plasma total carbon dioxide measurement (moles/volume)Ordered By: Medhat Baltazar on 03-12-2022 CO2 [Moles/Vol] 20.0 mmol/L 22.0-30.0 [facility] Serum or plasma total choles terol/high density lipoprotein (HDL) cholesterol mass ratOrdered By: Medhat Baltazar on 03-12-2022 Cholesterol.total/Chol esterol in HDL [Mass ratio] 2.4 {ratio} <5.0 [facility] Serum or plasma urea nitroge n measurement (mass/volume)Ordered By: Medhat Baltazar on 03-12-2022 Urea nitrogen [Mass/Vol] 6 mg/dL 9- [facility] TSH DL <= 0.005 mIU/L QnOrde red By: Medhat Baltazar on 03-12-2022 TSH Qn 44.00 m[IU]/L 0.45-5.33 [facility] Thyroid Stim Hormone w/Rflxo n 03-12-2022 Thyroid Stim Hormone w/Rflx 44.00 u[iU]/mL High 0.45-5.33 [facility] Comment on above: Performed By: #### L IPID, TSH3 wRFLX, CBC, [id number], T4F, CMP, [id number], LDLD, A1C WTH eA #### [facility] [address] Thyroxine (T4) free [Mass/vo lume] in Serum or PlasmaOrdered By: Medhat Baltazar on 03-12-2022 Free T4 [Mass/Vol] 0.41 ng/dL 0.61-1.12 [facility] Triglyceride [Mass/volume] i n Serum or PlasmaOrdered By: Medhat Baltazar on 03-12-2022 Triglyceride [Mass/Vol] 243 mg/dL 35-149 [facility] Comment on above: TRIG ATP III CLASSIF ICATION TRIG less than 150 mg/dL Normal TRIG 150-199 mg/dL Borderline high TRIG 200-500 mg/dL High TRIG greater than 500 mg/dL Very high Standard traceable to the Center for Disease Conrtrol and Prevention (CDC) test method. TRIG ATP III CLASSIF ICATIONTRIG less than 150 mg/dL NormalTRIG 150-199 mg/dL Borderline highTRIG 200-500 mg/dL High TRIG greater than 500 mg/dL Very highStandard traceable to the Center for Disease Conrtrol and Prevention (CDC) test method. Vit. B12/Folate Profileon Cobalamin (Vitamin B12) [Mass/Vol] 376 pg/mL Normal 180-914 [facility] Comment on above: Performed By: #### L IPID, TSH3 wRFLX, CBC, [id number], T4F, CMP, [id number], LDLD, A1C WTH eA #### [facility] [address] Folate 7.2 ng/mL Normal >5.9 [facility] Comment on above: Result Comment: Julia te reference range: >5.9 ng/ml The WHO technical consultation on folate and vitamin b12 deficiencies has determined that folate concentrations less than 4 ng/ml are considered deficient. Performed By: #### L IPID, TSH3 wRFLX, CBC, [id number], T4F, CMP, [id number], LDLD, A1C WTH eA #### [facility] [address] [place] [id number] [place] Vitamin D 25 Hydroxy Totalon 03-12-2022 Vitamin D 25 Hydroxy Total 7.9 ng/mL Low 30-100 [facility] Comment on above: Result Comment: MAIRA MIN D STATUS 25(OH)VITAMIN D RANGE (ng/mL) Deficient <20 Insufficient 20 to <30 Sufficient 30 to 100 Reference: Jay MF,Franklyn NC, Isaac FRANCSE, et al. Evaluation,treatment, and prevention of vitamin D deficiency; an Endocrine Society clinical practice guideline. JCEM. 2010; 96(7):1911-30. PERFORMED BY: [facility] [address] [place] [address] PATHOLOGIST SHOP MANAGER MARCO ANTONIO FINLEY M.D. Performed By: #### L IPID, TSH3 wRFLX, CBC, [id number], T4F, CMP, [id number], LDLD, A1C WTH eA #### [facility] [address] [id number] [facility] Office Visit (Cardiology)on 01-07-2022 Follow-up visit Diagnoses/Problems Assessed Atherosclerosis of coronary artery of tribe heart without angina pectoris (414.01) (I25.10) Essential hypertension, benign (401.1) (I10) Ischemic cardiomyopathy (414.8) (I25.5) History of Encounter for assessment of automatic implantable cardioverter-defibril lator (AICD) (V53.32) (Z45.02) Class 2 obesity with body mass index (BMI) of 35.0 to 35.9 in adult (278.00,V85.35) (E66.9,Z68.35) Encounter for assessment of implantable cardioverter-defibril lator (ICD) (V53.32) (Z45.02) Nicotine-filled electronic cigarette user (305.1) (Z72.0) one electronic device a week Orders Atherosclerosis of coronary artery of tribe heart without angina pectoris Renew: Aspirin Low Dose 81 MG Oral Tablet Delayed Release; TAKE 1 TABLET BY MOUTH EVERY DAY Renew: Atorvastatin Calcium 80 MG Oral Tablet; TAKE 1 TABLET BY MOUTH EVERYDAY AT BEDTIME Class 2 obesity with body mass index (BMI) of 35.0 to 35.9 in adult Healthy Weight Tips; Status:Complete - Retrospective Authorization; Done: 07Jan2022 Some eating tips that can help you lose weight.; Status:Complete - Retrospective Authorization; Done: 07Jan2022 Encounter for assessment of implantable cardioverter-defibril lator (ICD) Isotope Perfusion Mult Studies Planar W/ Ejection Fraction; Status:Active - Retrospective Authorization; Requested for:[id number]; SocHx: Nicotine-filled electronic cigarette user You need to stop smoking. Though it is not easy, more than half of all adult smokers have quit. We encourage you to write down all the reasons you should quit smoking and set a quit date for yourself. Ask us how we can help. You may also call 6-902-MDRCNOW for free resources and assistance.; Status:Complete - Retrospective Authorization; Done: 07Jan2022 Patient Instructions By signing my name below, I, Laxmi Iqbal LPN. ,Scribe, attest that this documentation has been prepared under the direction and in the presence of Dr. Aaron Ocampo MD. Please bring all medicines, vitamins, and herbal supplements with you when you come to the office. Prescriptions will not be filled unless you are compliant with your follow up appointments or have a follow up appointment scheduled as per instruction of your physician. Refills should be requested at the time of your visit. Follow up in [6 ] months Chief Complaint ELICEO KENNY is being seen for a 6 month follow-up of. History of Present Illness Patient returns for follow-up of problems as noted. He is done well. He denies any angina CHF or arrhythmia symptomatology. Management of risk factors including cholesterol and blood pressure is reviewed and control appears good. Because of this we will continue as before. He has no manifestations of his ischemic cardiomyopathy and he understands reason and rationale for the plan of care He apparently has a colostomy that he wishes to have reversed. His surgeon, though, states that she wants him to have a defibrillator implant before the surgery is done. I advised him its not even clear whether or not he needs 1. Because of this I recommended a MUGA scan to reassess his ejection fraction and make a determination as to whether or not device implantation is necessary. There is an isotope shortage and because of this there will be a delay and he understands and finds this acceptable. In the meantime he will continue therapy as is and he was encouraged to work on eliminating nicotine from his lifestyle. The merits of diet exercise and weight loss were also advocated. Surgical History Problems History of Ankle surgery History of Appendectomy History of Complete colonoscopy [facility] History of Ostomy History of Percutaneous transluminal coronary angioplasty Past Medical History Problems History of Encounter for assessment of automatic implantable cardioverter-defibril lator (AICD) (V53.32) (Z45.02) Resolved Date: 07 Jan 2022 Current Meds Medication NameInstruction Aspirin Low Dose 81 MG Oral Tablet Delayed ReleaseTAKE 1 TABLET BY MOUTH EVERY DAY Atorvastatin Calcium 80 MG Oral TabletTAKE 1 TABLET BY MOUTH EVERYDAY AT BEDTIME Carvedilol 6.25 MG Oral Tablettake 1 tablet by mouth twice a day Clopidogrel Bisulfate 75 MG Oral TabletTAKE 1 TABLET BY MOUTH EVERY DAY Cyclobenzaprine HCl - 5 MG Oral TabletTAKE 1 TABLET 3 TIMES DAILY NEEDED. Docusate Sodium 100 MG Oral CapsuleTAKE 1 CAPSULE TWICE DAILY. Furosemide 40 MG Oral TabletTAKE 1 TABLET Daily Gabapentin 100 MG Oral CapsuleTAKE 1 CAPSULE 3 TIMES DAILY. HYDROcodone-Acetamino phen 5-325 MG Oral TabletTAKE 1 TABLET EVERY 6 HOURS NEEDED FOR PAIN. Klor-Con M20 20 MEQ Oral Tablet Extended ReleaseTAKE 2 TABLETS BY MOUTH DAILY Levothyroxine Sodium 150 MCG Oral TabletTAKE 1 TABLET DAILY. Lidocaine 5 % External PatchAPPLY DIRECTED. Lisinopril 2.5 MG Oral TabletTAKE 1 TABLET DAILY. Loperamide HCl - 2 MG Oral TabletTAKE NEEDED. LORazepam 0.5 MG Oral TabletTAKE 1 TABLET Daily prn Ondansetro (more content not included)... Normal [facility] Tobacco Screening.on 022 Adult depression screening assessment No [facility] [address] DO Work Phone: Tobacco use status [facility] b) No [facility] 250 DO Work Phone: CBC AUTO DIFFon 07-29-2021 BASO # 0.0 103/ul Normal 0.0-0.1 [facility] Comment on above: Performed By: #### L ACT #### [facility] [place] [facility] [address] [address] [address] Wilda Patel Basophils/100 WBC (Bld) 0.3 % Normal 0.2-2.0 [facility] Comment on above: Performed By: #### L ACT #### [facility] [place] [facility] [address] [address] [address] Wilda Patel EO # 0.0 103/ul Normal 0.0-0.7 [facility] Comment on above: Performed By: #### L ACT #### [facility] [place] [facility] [address] [address] [address] Wilda Patel Eosinophils/100 WBC (Bld) 0.3 % Critically low 0.9-7.0 [facility] Comment on above: Performed By: #### L ACT #### [facility] [place] [facility] [address] [place] [address] Dr. Wilda Patel Erythrocyte distribution width (RBC) [Ratio] 13.5 % Normal 11.0-15.0 [facility] Comment on above: Performed By: #### L ACT #### [facility] [place] [facility] [address] [place] [address] Dr. Wilda Patel Hematocrit (Bld) [Volume fraction] 42.5 % Normal 42.0-54.0 [facility] Comment on above: Performed By: #### L ACT #### [facility] [place] [facility] [address] [place] [address] Dr. Wilda Patel Hemoglobin (Bld) [Mass/Vol] 14.5 g/dL Normal 14.0-18.0 [facility] Comment on above: Performed By: #### L ACT #### [facility] [place] [facility] [address] [place] [address] Dr. Wilda Patel IG # 0.05 10e3/ul Critically high 0.00-0.03 [facility] Comment on above: Performed By: #### L ACT #### [facility] [place] [facility] [address] [place] [address] Dr. Wilda Patel IG % 0.5 % Normal 0.0-0.5 [facility] Comment on above: Performed By: #### L ACT #### [facility] [place] [facility] [address] [place] [address] Dr. Wilda Patel LYMPH # 1.9 103/ul Normal 1.2-3.8 [facility] Comment on above: Performed By: #### L ACT #### [facility] [place] [facility] [address] [place] [address] Dr. Wilda Patel Lymphocytes/100 WBC (Bld) 17.6 % Critically low 20.5-60.0 [facility] Comment on above: Performed By: #### L ACT #### [facility] [place] [facility] [address] [place] [address] Dr. Wilda Patel MANUAL DIFF REQ NO Normal [facility] Comment on above: Performed By: #### L ACT #### [facility] [place] [facility] [address] [place] [address] Dr. Wilda Patel MCH (RBC) [Entitic mass] 33.1 pg Normal 25.9-34.0 [facility] Comment on above: Performed By: #### L ACT #### [facility] [place] [facility] [address] [place] [address] Dr. Wilda Patel MCHC (RBC) [Mass/Vol] 34.1 g/dL Normal 29.9-35.2 [facility] Comment on above: Performed By: #### L ACT #### [facility] [place] [facility] [address] [place] [address] Dr. Wilda Patel MCV (RBC) [Entitic vol] 97.0 fL Critically high 80.0-94.0 [facility] Comment on above: Performed By: #### L ACT #### [facility] [place] [facility] [address] [place] [address] Dr. Wilda Patel MONO # 0.9 103/ul Critically high 0.3-0.8 [facility] Comment on above: Performed By: #### L ACT #### [facility] [address] [place] [address] Dr. Wilda Patel Monocytes/100 WBC (Bld) 8.0 % Normal 1.7-12.0 [facility] Comment on above: Performed By: #### L ACT #### [facility] [address] [place] [address] Dr. Wilda Patel NEUT # 7.9 103/ul Critically high 1.4-6.5 [facility] Comment on above: Performed By: #### L ACT #### [facility] [address] [place] [address] Dr. Wilda Patel Neutrophils/100 WBC (Bld) 73.3 % Normal 43.0-75.0 [facility] Comment on above: Performed By: #### L ACT #### [facility] [place] [facility] [address] [place], [place] [address] Dr. Wilda Patel Platelet mean volume (Bld) [Entitic vol] 9.3 fL Critically low 9.5-13.5 [facility] Comment on above: Performed By: #### L ACT #### [facility] [address] [address] [address] Wilda Patel PLT 261 103/ul Normal 150-450 [facility] Comment on above: Performed By: #### L ACT #### [facility] [place] [facility] [address] [address] [address] Wilda Patel RBC 4.38 106/ul Critically low 4.70-6.10 [facility] Comment on above: Performed By: #### L ACT #### [facility] [place] [facility] [address] [address] [address] Wilda Patel WBC 10.8 103/ul Normal 4.0-11.0 [facility] Comment on above: Performed By: #### L ACT #### [facility] [place] [facility] [address] ABD/PELV W CONon 07-29-[address] ABD/PELV W CON CT ABDOMEN AND PELVI S WITH CONTRAST: INDICATION: Abscess of abdominal wall. COMPARISON: CT abdomen and pelvis 05/02/2021. TECHNIQUE: Helical CT images of the abdomen and pelvis were obtained after the administration of intravenous contrast. Dose reduction techniques were achieved by using automated exposure control and/or adjustment of mA and/or kV according to patient size and/or use of iterative reconstruction technique. FINDINGS: LOWER CHEST: Moderate atherosclerotic right coronary artery calcification. LIVER: Enlarged the right lobe measuring 20 cm in length. GALLBLADDER AND BILIARY SYSTEM: Normal. SPLEEN: Mildly enlarged at 13 cm in length. PANCREAS: Normal. ADRENAL GLANDS: Moderate bilateral atrophy. This is stable. KIDNEYS AND URETERS: Normal. VASCULATURE: Moderate calcification of the abdominal aorta at the bifurcation compatible with atherosclerosis. RETROPERITONEUM AND LYMPH NODES: Mildly enlarged 14 x 9 mm right external iliac lymph node which is slightly increased in size. No other adenopathy. GASTROINTESTINAL TRACT/MESENTERY: Status post partial sigmoid colectomy. Right lower quadrant loop ileostomy. Mild diverticulosis in the sigmoid colon. Mild infiltrative soft tissue density in the lower anterior peritoneal cavity is improving, currently measuring 18 x 12 mm, previously 43 x 34 mm. Appendix was not visualized. BLADDER: Underdistended but otherwise unremarkable. REPRODUCTIVE SYSTEM: Normal prostate. BODY WALL: Fluid collection in the lower anterior abdominal wall measuring 4.5 x 3.8 x 3.3 cm with peripheral enhancement compatible with abscess. Previously this measured 4.9 x 4 x 2.4 cm. This extends anterior to the skin surface. Stable skin thickening and subcutaneous stranding which may be due to cellulitis. BONES: No acute abnormality. IMPRESSION: 1. Essentially stable fluid collection in the anterior abdominal wall extending to the skin surface suspicious for abscess. Stable skin thickening and subcutaneous stranding suggestive of cellulitis. 2. Improving infiltrative soft tissue density in the adjacent anterior peritoneal cavity which may be due to phlegmon or omental infarct. 3. Hepatosplenomegaly, adrenal atrophy and mildly enlarged but likely reactive right external iliac lymph node. Electronically authenticated by: CLAIR RAMIREZ Date: 2021-07-29 19:33 Normal [facility] CULTURE BLOODon 07-29-2021 Microscopic examination of blood, culture Culture Observations: NO GROWTH AT 5 DAYS. Normal [facility] [place] [facility] Comment on above: Performed By: #### C MREP #### [facility] [place] [facility] [address] [place] [address] Dr. Wilda Patel Microscopic examination of blood, culture Culture Observations: NO GROWTH AT 5 DAYS. Normal [facility] [place] [facility] Comment on above: Performed By: #### C MREP #### [facility] [place] [facility] [address] [place] [address] Dr. Wilda Patel [facility]-19 [facility]on SARS-CoV-2 (COVID-19) RNA SHREYA+probe Ql (Unsp spec) Not detected Normal NOT DETECTED [facility] [place] [facility] Comment on above: Result Comment: This test is not yet approved or cleared by the [place] FDA. When there are no FDA-approved or cleared tests available, and other criteria are met, FDA can make tests available under an emergency access mechanism called an Emergency Use Authorization (EUA). The EUA for this test is supported by the [place] of Health and Human Service's (HHS's) declaration that circumstances exist to justify the emergency use of in vitro diagnostics for the detection and/or diagnosis of the virus that causes COVID-19. This EUA will remain in effect (meaning this test can be used) for the duration of the COVID-19 declaration justifying emergency of IVDs, unless it is terminated or revoked by FDA (after which the test may no longer be used). When diagnostic testing is negative, the possibility of a false negative should be considered in the context of a patient's recent exposures and the presence of clinical signs and symptoms consistent with SARS-CoV-2. Performed By: #### C VDTB #### [facility] [place] [facility] [address] [place] [address] Dr. Wilda Patel ER URINE PROFILEon 2 Bilirubin Ql (U) Negative Normal NEGATIVE [facility] Comment on above: Performed By: #### E RUR #### [facility] [place] [facility] [address] [place] [address] Dr. Wilda Patel Clarity (U) CLEAR Normal CLEAR [facility] [place] [facility] Comment on above: Performed By: #### E RUR #### [facility] [place] [facility] [address] [place] [address] Dr. Wilda Patel Color (U) YELLOW Normal YELLOW [facility] Comment on above: Performed By: #### E RUR #### [facility] [place] [facility] [address] [place] [address] Dr. Wilda DOYLEMoni A micrscopic examination will be performed if indicated. Normal [facility] [place] [facility] Comment on above: Performed By: #### E RUR #### [facility] [place] [facility] [address] [place] [address] Dr. Wilda Patel Glucose Ql (U) Negative Normal NEGATIVE [facility] Comment on above: Performed By: #### E RUR #### [facility] [place] [facility] [address] [place] [address] Dr. Wilda Patel Hemoglobin Ql (U) Negative Normal NEGATIVE [facility] Comment on above: Performed By: #### E RUR #### [facility] [place] [facility] [address] [place] [address] Dr. Wilda Patel Ketones Ql (U) Negative Normal NEGATIVE [facility] Comment on above: Performed By: #### E RUR #### [facility] [place] [facility] [address] [place] [address] Dr. Wilda Patel LEUKOCYTES Negative Normal NEGATIVE [facility] Comment on above: Performed By: #### E RUR #### [facility] [place] [facility] [address] [place] [address] Dr. Wilda Patel Nitrite Ql (U) Negative Normal NEGATIVE [facility] Comment on above: Performed By: #### E RUR #### [facility] [place] [facility] [address] [place] [address] Dr. Wilda Patel pH (U) 5.5 [pH] Normal 5-9 [facility] Comment on above: Performed By: #### E RUR #### [facility] [place] [facility] [address] [place] [address] Dr. Wilda Patel SPEC GRAVITY >=1.030 Abnormal 1.005-<=1.[address] [place] [address] Comment on above: Performed By: #### E RUR #### [facility] [place] [facility] [address] [place] [address] Dr. Wilda Patel UA PROTEIN Negative Normal NEGATIVE/ TRACE [facility] [place] [facility] Comment on above: Performed By: #### E RUR #### [facility] [place] [facility] [address] [place] [address] Dr. Wilda Patel UR MICRO IND NOT INDICATED Normal [facility] Comment on above: Performed By: #### E RUR #### [facility] [place] [facility] [address] [place] [address] Dr. Wilda Patel Urobilinogen Qn (U) 0.2 {Maria Luisa'U}/dL Normal 0.2 - 1. 0 [facility] Comment on above: Performed By: #### E RUR #### [facility] [place] [facility] [address] [place] [address] Dr. Wilda Patel LACTATE/LACTIC ACIDon 2021 Lactate [Moles/Vol] 2.2 mmol/L Critically high 0.7-2.0 [facility] Comment on above: Performed By: #### L ACT #### [facility] [place] [facility] [address] [place] [address] Dr. Wilda Patel PROF 14(COMP METB)on 022 Albumin [Mass/Vol] 2.9 g/dL Critically low 3.5-5.0 [facility] Comment on above: Performed By: #### C MP #### [facility] [place] [facility] [address] [place] [address] Dr. Wilda Patel Albumin/Globulin [Mass ratio] 0.7 {ratio} Normal [facility] Comment on above: Performed By: #### C MP #### [facility] [place] [facility] [address] [place] [address] Dr. Wilda Patel ALP [Catalytic activity/Vol] 137 U/L Critically high 38-126 [facility] Comment on above: Performed By: #### C MP #### [facility] [address] [place] [address] Dr. Wilda Patel ALT [Catalytic activity/Vol] 17 U/L Critically low 21-72 [facility] Comment on above: Performed By: #### C MP #### [facility] [address] [place] [address] Dr. Wilda Patel Anion gap [Moles/Vol] 14.8 mmol/L Normal [facility] Comment on above: Performed By: #### C MP #### [facility] [place] [facility] [address] [place] [address] Dr. Wilda Patel AST [Catalytic activity/Vol] 15 U/L Critically low 17-59 [facility] Comment on above: Performed By: #### C MP #### [facility] [place] [facility] [address] [place] [address] Dr. Wilda Patel Bilirubin [Mass/Vol] 0.7 mg/dL Normal 0.2-1.3 [facility] Comment on above: Performed By: #### C MP #### [facility] [place] [facility] [address] [place] [address] Dr. Wilda Patel Calcium [Mass/Vol] 8.8 mg/dL Normal 8.4-10.2 [facility] Comment on above: Performed By: #### C MP #### [facility] [place] [facility] [address] [address] [address] Wilda Patel Chloride [Moles/Vol] 97 mmol/L Critically low 98-107 [facility] Comment on above: Performed By: #### C MP #### [facility] [place] [facility] [address] [address] [address] Wilda Patel CO2 [Moles/Vol] 26.9 mmol/L Normal 22.0-30.0 [facility] Comment on above: Performed By: #### C MP #### [facility] [place] [facility] [address] [place] [address] Dr. Wilda Patel Creatinine [Mass/Vol] 0.95 mg/dL Normal 0.66-1.25 [facility] [place] [facility] Comment on above: Performed By: #### C MP #### [facility] [place] [facility] [address] [place] [address] Dr. Wilda Patel EGFR-AF GABONESE >60 Normal >=60 [facility] Comment on above: Performed By: #### C MP #### [facility] [place] [facility] [address] [address] [address] Wilda Patel EGFR-NON AF GABONESE >60 Normal >=60 [facility] Comment on above: Performed By: #### C MP #### [facility] [address] [place] [address] Dr. Wilda Patel Globulin (S) [Mass/Vol] 4.2 g/dL Normal [facility] Comment on above: Performed By: #### C MP #### [facility] [address] [place] [address] Dr. Wilda Patel Glucose [Mass/Vol] 97 mg/dL Normal 74-106 [facility] Comment on above: Performed By: #### C MP #### [facility] [address] [address] [address] Wilda Patel Potassium [Moles/Vol] 3.7 mmol/L Normal 3.4-5.0 [facility] Comment on above: Performed By: #### C MP #### [facility] [address] [address] [address] Wilda Patel Protein [Mass/Vol] 7.1 g/dL Normal 6.1-8.2 [facility] Comment on above: Performed By: #### C MP #### [facility] [id number] Wilda Patel Sodium [Moles/Vol] 135 mmol/L Critically low 137-145 [facility] Comment on above: Performed By: #### C MP #### [facility] [address] [address] [address] Wilda Patel Urea nitrogen [Mass/Vol] 11.0 mg/dL Normal 9.0-20.0 [facility] Comment on above: Performed By: #### C MP #### [facility] [address] [address] [address] Wilda Patel Urea nitrogen/Creatinine [Mass ratio] 11.6 mg/mg Normal [facility] Comment on above: Performed By: #### C MP #### [facility] [address] [address] [address] Wilda Patel Tobacco Screening.on 021 Tobacco use status CPHS b) No [facility] 250 DO Work Phone: Vital Signs Date Time Vital Sign Value Performing Clinician Facility 05-24-2024 13:37-0400 Diastolic blood pressure 86 mm[Hg] Blanco Kirnus [facility] 05-24-2024 13:37-0400 Heart rate 100 /min Blanco Kirnus [facility] 05-24-2024 13:37-0400 Respiratory rate 16 /min Blanco Kirnus [facility] 05-24-2024 13:37-0400 SaO2% (BldA) [Mass fraction] 96 % Blanco Kirnus [facility] 05-24-2024 13:37-0400 Systolic blood pressure 140 mm[Hg] Blanco Kirnus [facility] 04-26-2024 11:00-0400 Body height 167.6 cm Misti Edvin DO Work Phone: [facility] 04-26-2024 11:00-0400 Body mass index (BMI) [Ratio] 40.35 kg/m2 Misti Edvin DO Work Phone: [facility] 04-26-2024 11:00-0400 Body weight 113.4 kg Misti Edvin DO Work Phone: [facility] 04-26-2024 11:00-0400 Diastolic blood pressure 88 mm[Hg] Misti Edvin DO Work Phone: [facility] 04-26-2024 11:00-0400 Heart rate 84 /min Misti Edvin DO Work Phone: [facility] 04-26-2024 11:00-0400 SaO2% (BldA) [Mass fraction] 93 % Misti Edvin DO Work Phone: [facility] 04-26-2024 11:00-0400 Systolic blood pressure 131 mm[Hg] Misti Edvin DO Work Phone: [facility] 2022 14:09-0500 Body height 167.64 cm Referring Provider Unknown [facility] 250 DO Work Phone: 2022 14:09-0500 Body mass index (BMI) [Ratio] 34.7 kg/m2 Referring Provider Unknown [facility] 250 DO Work Phone: 2022 14:09-0500 Body surface area Derived from formula 2.06 m2 Referring Provider Unknown [facility] 250 DO Work Phone: 2022 14:09-0500 Body weight 97.52 kg Referring Provider Unknown [facility] 250 DO Work Phone: 2022 14:09-0500 Diastolic blood pressure 86 mm[Hg] Referring Provider Unknown [facility] 250 DO Work Phone: 2022 14:09-0500 Heart rate 84 /min Referring Provider Unknown [facility] 250 DO Work Phone: 2022 14:09-0500 Systolic blood pressure 116 mm[Hg] Referring Provider Unknown [facility] 250 DO Work Phone: 01-07-2022 15:27-0400 Body height 167.64 cm Referring Provider Unknown [facility] 250 DO Work Phone: 01-07-2022 15:27-0400 Body mass index (BMI) [Ratio] 35.02 kg/m2 Referring Provider Unknown [facility] [place] 250 DO Work Phone: 01-07-2022 15:27-0400 Body surface area Derived from formula 2.07 m2 Referring Provider Unknown [facility] [place] 250 DO Work Phone: 01-07-2022 15:27-0400 Body weight 98.43 kg Referring Provider Unknown [facility] 250 DO Work Phone: 01-07-2022 15:27-0400 Diastolic blood pressure 70 mm[Hg] Referring Provider Unknown [facility] 250 DO Work Phone: 01-07-2022 15:27-0400 Heart rate 84 /min Referring Provider Unknown [facility] Sushil 250 DO Work Phone: 01-07-2022 15:27-0400 Systolic blood pressure 102 mm[Hg] Referring Provider Unknown [facility] Sushil 250 DO Work Phone: 12-30-2021 11:50-0400 Body height 167.6 cm Trauma Resident [facility] 12-30-2021 11:50-0400 Body mass index (BMI) [Ratio] 35.19 kg/m2 Trauma Resident [facility] 12-30-2021 11:50-0400 Body weight 98.88 kg Trauma Resident [facility] 06-07-2022 11:50-0400 Diastolic blood pressure 63 mm[Hg] Trauma Resident [facility] 12-30-2021 11:50-0400 Heart rate 100 /min Trauma Resident [facility] 12-30-2021 11:50-0400 Respiratory rate 18 /min Trauma Resident [facility] 12-30-2021 11:50-0400 Systolic blood pressure 101 mm[Hg] Trauma Resident [facility] 07-07-2021 11:05-0500 Body height 167.64 cm Referring Provider Unknown [facility] 250 DO Work Phone: 07-07-2021 11:05-0500 Body mass index (BMI) [Ratio] 35.83 kg/m2 Referring Provider Unknown [facility] 250 DO Work Phone: 07-07-2021 11:05-0500 Body surface area Derived from formula 2.09 m2 Referring Provider Unknown [facility] 250 DO Work Phone: 07-07-2021 11:05-0500 Body weight 100.7 kg Referring Provider Unknown [facility] 250 DO Work Phone: 07-07-2021 11:05-0500 Diastolic blood pressure 72 mm[Hg] Referring Provider Unknown [facility] 250 DO Work Phone: 07-07-2021 11:05-0500 Heart rate 96 /min Referring Provider Unknown [facility] 250 DO Work Phone: 07-07-2021 11:05-0500 Systolic blood pressure 108 mm[Hg] Referring Provider Unknown [facility] 250 DO Work Phone: Encounters Encounter Date Encounter Type Care Provider Facility Start: 05-24-2024 End: 05-24-2024 ambulatory Blanco Lazcano [facility] Start: 05-24-2024 End: 05-24-2024 Patient encounter procedure Blanco Lazcano [facility] Start: 04-26-2024 End: 04-26-2024 Bamboo flowsheet Mistigeorgie Pardo DO Work Phone: [facility] Start: 04-26-2024 End: 04-26-2024 Bamboo flowsheet Misti Leah Pardo DO Work Phone: [facility] Start: 04-26-2024 End: 04-26-2024 Office outpatient new 45 minutes Misti Pardo DO Work Phone: [facility] Comment on above: Chronic obstructive pulmonary disease, unspecified COPD type (CMS/HCC) (Primary Dx); COPD with acute exacerbation (CMS/HCC); Hypersomnolence Start: 04-26-2024 End: 04-26-2024 ambulatory MISTI Leah GONSALESCK Not Available Start: 02-09-2024 End: 02-09-2024 ambulatory AMBER L CUTLER Not Available Start: 01-17-2024 End: 01-17-2024 ambulatory AMBER L CUTLER Not Available Start: 01-12-2024 End: 01-12-2024 ambulatory AMBER L CUTLER Not Available Start: 12-27-2023 ambulatory UNKNOWN PROVIDER Facili ty:[facility] Start: 12-03-2022 End: 12-29-2022 Pre-admission assessment Nabil Rosales [facility] Start: 09-14-2022 Rx Renewal Referring Prov ider Unknown [facility] 250 DO Work Phone: Start: 2022 FUV, Provider: Aaron Ocampo, Status: Pen, Time: 2:00 PM Referring Provider Unknown [facility] 250 DO Work Phone: Start: 2022 Office outpatient visit 25 minutes Referring Provider Unknown [facility] 250 DO Work Phone: Start: 2022 ambulatory PCP UNKNOWN Facility:1 [id number] Start: 08-17-2022 End: 08-21-2022 Office outpatient visit 25 minutes Vanessa Wilson MD Work Phone: [facility] Trauma Surgery Comment on above: Attention to ileosto my (HCC) (Primary Dx); Chronic obstructive pulmonary disease, unspecified COPD type (HCC); Ischemic cardiomyopathy; S/P colostomy takedown Start: 08-14-2022 Rx Renewal Referring Prov ider Unknown [facility] 250 DO Work Phone: Start: 08-13-2022 Rx Renewal Referring Prov ider Unknown [facility] 250 DO Work Phone: Start: 08-06-2022 Telephone encounter Vanessa davalos MD Work Phone: [facility] Trauma Surgery Start: 07-22-2022 End: 07-23-2022 [facility] Facility: Start: 06-08-2022 End: 06-08-2022 ambulatory Hindu Lowrie Facility:[facility] Start: 06-08-2022 End: 06-08-2022 ambulatory DO Hindu Lowrie Work Phone: [facility] Work Phone: Start: 06-08-2022 End: 06-08-2022 Departed Referred DO Hindu Lowrie Work Phone: [facility] Start: 06-04-2022 ambulatory SAV SOLIS Facility:H 1 Start: 05-28-2022 End: 05-28-2022 ambulatory Carolyn Dugan Facility:[facility] Start: 05-28-2022 End: 05-28-2022 Patient encounter procedure DO Hindu Lowrie Work Phone: [facility] Start: 05-21-2022 Chart Update Referring Prov ider Unknown [facility] 250 DO Work Phone: Start: 05-06-2022 Patient encounter procedure Referring Provider Unknown [facility] [address] [place] Work Phone: Start: 05-06-[address] Aaron Ocampo II Facility:[id number] Start: 03-12-2022 End: 03-12-2022 ambulatory Medhat Baltazar Facility:[facility] Start: 03-12-2022 End: 03-12-2022 Departed Referred DO Carmine Enriquealinesuleiman Work Phone: [facility] Start: 01-07-2022 Office outpatient visit 25 minutes Referring Provider Unknown [facility] 250 DO Work Phone: Start: 01-07-2022 ambulatory Aaron Ocampo II Facility: Start: 12-30-2021 End: 12-31-2021 Office outpatient visit 15 minutes Trauma Surgery Resident [facility] Comment on above: Attention to ileosto my (HCC) (Primary Dx); Body mass index (BMI) 35.0-35.9, adult Start: 12-19-2021 Telephone encounter Jina Mclean [facility] Trauma Surgery Start: 10-13-2021 Rx Renewal Referring Prov ider Unknown [facility] 250 DO Work Phone: Start: 09-15-2021 Rx Renewal Referring Prov ider Unknown [facility] 250 DO Work Phone: Start: 08-25-2021 Rx Renewal Referring Prov ider Unknown [facility] 250 DO Work Phone: Start: 07-29-2021 End: 07-30-2021 ambulatory [facility] Facility: Start: 07-21-2021 Rx Renewal Referring Prov ider Unknown [facility] 250 DO Work Phone: Start: 07-17-2021 Rx Renewal Referring Prov ider Unknown [facility] 250 DO Work Phone: Start: 07-07-2021 Office outpatient visit 25 minutes Referring Provider Unknown [facility] 250 DO Work Phone: Start: 05-28-2021 AUDIT No PCP None [facility]io [facility] 250 DO Work Phone: Start: 04-25-2021 Rx Renewal No PCP None [facility] leigha [facility] 250 DO Work Phone: Start: 10-13-2018 Patient encounter procedure AARON OCAMPO Facility:[id number] Start: 08-26-2018 Patient encounter procedure PATY GUERRA Facility:[id number] Patient encounter status Referring Provider Unknown [facility] 250 DO Work Phone: Procedures Date Procedure Procedure Detail Performing Clinician Start: 12-27-2023 End: 12-27-2023 Nonphysician telephone assessment 21-[address] (HCC) Acute Care Surgery Resident Comment on above: Ileostomy in place ( HCC) (Primary Dx); CAD S/P percutaneous coronary angioplasty; Chronic obstructive pulmonary disease, unspecified COPD type (HCC); Chronic congestive heart failure, unspecified heart failure type (HCC) Start: 10-12-2020 Colonoscopy Acute Resi dent Start: 06-24-2020 Total colonoscopy No PC P None Comment on above: [facility]; Appendectomy No PCP None Appendectomy Nabil Ghotra [facility] Colostomy Nabil Ghotra [facility] Heart structure (bod y structure) Nabil Rosales Operative procedure on ankle No PCP None Percutaneous transluminal coronary angioplasty No PCP None Structure of left lo wer leg (body structure) Nabil Rosales Plan of Treatment Date Care Activity Detail Author Start: 10-12-2030 Screening for malign ant neoplasm of colon [facility] Start: 07-22-2027 Lipid panel Cholesterol [facility] Start: 07-17-2024 End: 07-17-2024 Patient encounter procedure 07/17/2024 11:00 AM EST Office Visit [facility] [address] [facility] [address] [place] [address] Amber Cuellar, DO [address] [place] [address] [facility] Start: 07-04-2024 End: 07-04-2024 Patient encounter procedure 07/04/2024 2:15 PM EST Office Visit [facility] [address] [place] [address] Misti Pardo, DO [address] [place] [address] [facility] Start: 04-26-2024 End: 04-26-2024 Patient encounter procedure 04/26/2024 11:15 AM EDT Consult [facility] [address] [place] [address] Misti Pardo, DO [address] [place] [address] COPD with acute exacerbation ([facility] Comment on above: COPD with acute exac erbation ([facility] Start: 03-26-2024 Influenza vaccination Influenza Vacc ine (#1) [facility] Start: 05-12-2023 FUV, Provider: Aaron Ocampo, Status: Pen, Time: 1:20 PM FUV, Provider: Aaron Ocampo, Status: Pen, Time: 1:20 PM [facility] Work Phone: Start: 03-26-2023 COVID-19 Vaccine ( season) COVID-19 Vaccine ( season) [facility] Start: 09-17-2022 STRESS NUC, Provider : TERESSA HHVI NUCLEAR ,[id number], Status: Pen, Time: 12:00 PM STRESS NUC, Provider: TERESSA HHVI NUCLEAR ,[id number], Status: Pen, Time: 12:00 PM [facility] Work Phone: Start: 2022 FUV, Provider: Aaron Ocampo, Status: Pen, Time: 2:00 PM FUV, Provider: Aaron Ocampo, Status: Pen, Time: 2:00 PM [facility] Work Phone: Start: 08-17-2022 End: 08-17-2022 Patient encounter procedure 08/17/2022 Office Visit Trauma Surgery [facility] Start: 07-30-2022 Basic metabolic 2000 panel - Serum or Plasma Basic Metabolic Panel [facility] Start: 07-30-2022 Creatinine measurement Basic [facility]abol ic [facility] Start: 04-25-2022 Influenza vaccination Influ[facility] Vacc ine (#[facility] Start: 02-20-2022 MUGA, Provider: TERESSA HHVI NUCLEAR 01,[id number], Status: Pen, Time: 2:00 PM MUGA, Provider: TERESSA HHVI NUCLEAR 01,[id number], Status: Pen, Time: 2:00 PM [facility] 250 DO Work Phone: Start: 01-07-2022 FUV, Provider: Aaron Ocampo, Status: Pen, Time: 3:30 PM FUV, Provider: Aaron Ocampo, Status: Pen, Time: 3:30 PM [facility] 250 DO Work Phone: Start: 12-30-2021 End: 12-30-2021 Patient encounter procedure 12/30/2021 Office Visit Trauma Surgery [facility] Start: 05-12-2021 FUV, Provider: Aaron Ocampo, Status: Pen, Time: 8:00 AM FUV, Provider: Aaron Ocampo, Status: Pen, Time: 8:00 AM [facility] 250 DO Work Phone: Start: 03-25-2021 Thyroid stimulating hormone measurement TSH [facility] Start: 08-08-2020 [facility]neumococcal vaccination [facility] Start: 2016 Measurement of occul t blood in single stool specimen [facility] Start: 2016 Shingles (RZV) Vacci ne (1 of 2) Shingles (RZV) Vaccine (1 of 2) [facility] Start: 2011 Screening for malign ant neoplasm of colon [facility] Start: 2001 [facility]id panel [facility] Start: 1985 Hepatitis A (HAV) Vaccine (optional start 19+ years) Hepatitis A (HAV) Vaccine (optional start 19+ years) [facility] Start: 1985 Hepatitis B vaccination Hepati tis B (HBV) Vaccine (1 of 3 - 19+ 3-dose series) [facility] Start: 1984 Tetanus + diphtheria + acellular pertussis vaccine (product) Tdap Booster [facility] Start: 1971 COVID-19 Vaccine (#1) COVID-19 Vacci ne (#1) [facility] Start: 02-16-1967 COVID-19 Vaccine (#1) COVID-19 [facility]i ne [facility]) [facility] Start: 1966 Abdominal aortic aneurysm screening Pulmonary Function Testing [facility] Start: 1966 Ejection Fraction Ejection Fraction [facility] Start: 1966 Pulmonary Function Testing Pulmonary Function Testing [facility] Start: 1966 Screening for malign ant [facility]oplasm [facility] Immunizations Immunization Date Immunization Notes Care Provider Ana moura 04-02-2022 influenza, high dose seasonal, preservative-free Referring Provider Unknown [address] [address] DO Work Phone: 04-02-2022 influenza virus vaccine, unspecified formulation Misti Pardo DO Work Phone: [facility] 10-17-2020 Albumin Jina Wrendianne [facility] 08-26-2019 influenza, seasonal, injectable No PCP None [address] [address] DO Work Phone: 08-26-2019 influenza virus vaccine, unspecified formulation Vanessa Wilson MD Work Phone: [facility] 08-08-2019 pneumococcal polysaccharide vaccine, 23 valent No PCP None [facility] 07-05-2019 Influenza, injectabl e, Madin Alyse Canine Kidney, preservative free, quadrivalent No PCP None [facility] 250 DO Work Phone: 07-26-2018 influenza virus vaccine, unspecified formulation Referring Provider Unknown [facility] 250 DO Work Phone: 07-24-2018 influenza, injectabl e, quadrivalent, preservative free No PCP [facility] Payers Date Payer Category Payer Medicaid [id number] 2018 Medicaid [id number] 1966 Unknown [id number] 2.16.8 [id number] 1966 Unknown [id number] 2.16.8 40.1.014215.3.579.2.355 1966 Unknown [id number] 2.16.8 40.1.607966.3.579.2.1068 1966 Unknown [id number] 2.16.84 0.1.930149.3.579.2.593 1966 Unknown [id number] 2.16.84 0.1.593458.3.579.2.593 1966 Unknown [id number] 2.16.84 0.1.318286.3.579.2.593 1966 Unknown [id number] 2.16. 840.1.225118.3.579.2.356 1966 Unknown [id number] 2.16. 840.1.460046.3.579.2.356 1966 Unknown [id number] 2.16. 840.1.432547.3.579.2.732 1966 Unknown [id number] 2.16.84 0.1.776189.3.579.2.1259 1966 Unknown [id number] 2.16.84 0.1.726843.3.579.2.1259 1966 Unknown [id number] 2.16.84 0.1.905065.3.579.2.1259 1966 Unknown [id number] 2.16.84 0.1.466530.3.579.2.1259 1966 Unknown [id number] 2.16.84 0.1.623842.3.579.2.1259 1966 Unknown [id number] 2.16.8 40.1.794194.3.579.2.727 1959 Medicaid [id number] Self-pay [id number] Unknown [id number] Unknown Unknown HCAP/HFA/FAP Active [id number] Unknown [id number] 2.16.8 40.1.339320.3.579.2.531 Unknown [id number] 2.16.8 40.1.409870.3.579.2.531 Unknown [id number] 2.16.8 40.1.217727.3.579.2.531 Social History Date Type Detail Facility Start: 01-14-2021 End: 01-17-2024 Rarely consumes alcohol Rarely consumes alcohol [place] [address] DO Work Phone: Comment on above: QUIT 2017 07 PPD; quit 05/26/2021; one electronic devic e a week; Start: 01-14-2021 End: 05-24-2024 Tobacco smoking status [facility] Light tobacco smoker [facility] History of tobacco use [facility] Start: 01-14-2021 End: 12-30-2022 Tobacco use and exposure Smokeless tobacco non-user [facility] Start: 10-06-2019 Tobacco Comment Smokes approx three cigarettes a month when pt is stressed [facility] Start: 1965 Sex Assigned At Not on file [facility] Start: 11-28-2020 End: 12-30-2022 Tobacco smoking status RIIS Ex-smoker (finding) [facility] Start: 1965 Sex Assigned At Male I[facility] Start: 12-30-2021 End: 06-24-2024 Sex Assigned At Male Aaron Brock [facility] History of tobacco use Current smoker [facility] Start: 04-25-2024 End: 04-26-2024 Alcoholic beverage intake Lifetime non-drinker (finding) [facility] Start: 12-30-2022 Alcohol Comment soda/pop 1-2 cups/da y [facility] Medical Equipment Procedure Code Equipment Code Equipment Origin al Text Equipment Identifier Dates CL STENT REAGAN 3.0 X 28 FDA Start: 05-28-2018 CL STENT REAGAN 3.0 X 28 FDA Start: 05-28-2018 Functional Status Date Assessment Result Facility 05-24-2024 Functional Status N/A [facility] Clinical Notes 12-19-2021 to 04-26-2024 Misti Pardo DO - 04/26/2024 11:15 AM EDTAddendum Note - John Collier MD - 01/02/2024 9:47 AM EDTAddendum Note - John Collier MD - 01/02/2024 9:47 AM EDTPatient Instructions Note Date & Type Note Facility 04-26-2024 History of Presen t illness Narrative Images from the original note were not included. Eliceo Kenny presents today for evaluation in regards to shortness of breath. He was referred by his primary care physician's office. He states that he does note some shortness of breath with exertion. He does currently use Spiriva and Symbicort. He does also use albuterol on an as needed basis. He does give a history of COPD exacerbations in the past. He states his last was at the end of January. He does state that he has flare-ups every 2-3 months. He is a former smoker. He denies any current complaints of chest pain, palpitations, fevers, chills, sweats, or recent unintentional weight changes. He does complain that he has difficulty sleeping at night. He states that he does often wake up gasping for air. He does have some snoring as well as witnessed apneas. He does not feel well rested upon wakening in the morning. He does complain of excessive daytime sleepiness. He did have PFTs performed prior to today's office visit. He also had a chest x-ray performed. He denies any other complaints at this time. Allergies Allergen Reactions Penicillin G Anaphylaxis Morphine Other Agitation Current Outpatient Medications Medication Sig Dispense Refill albuterol (2.5 MG/3ML) 0.083% nebulizer solution every 6 (six) hours. albuterol HFA 90 mcg/act inhaler every 4 (four) hours. ASPIRIN 81 MG chewable tablet 1 (one) time each day at the same time. atorvastatin (Lipitor) 80 MG tablet TAKE 1 TABLET BY MOUTH EVERY DAY FOR 90 DAYS carvedilol (Coreg) 6.25 MG tablet TAKE 1 TABLET BY MOUTH TWICE A DAY WITH FOOD FOR 90 DAYS clopidogrel (Plavix) 75 MG tablet TAKE 1 TABLET BY MOUTH EVERY DAY FOR 90 DAYS cyclobenzaprine (Flexeril) 5 MG tablet 1 (one) time each day at the same time. Docusate Sodium (DSS) 100 MG capsule 1 (one) time each day at the same time. furosemide (Lasix) 40 MG tablet TAKE 1 TABLET BY MOUTH EVERY DAY FOR 90 DAYS HYDROcodone-acetaminophen (Morrow) 5-325 MG tablet every 6 (six) hours. KLOR-CON 20 MEQ ER tablet 1 (one) time each day at the same time. levothyroxine (Synthroid, Levoxyl) 200 MCG tablet 1 (one) time each day at the same time. Lidocaine 4 % patch 1 (one) time each day at the same time. lisinopril 2.5 MG tablet TAKE 1 TABLET BY MOUTH EVERY DAY FOR 90 DAYS loperamide (Imodium) 2 MG capsule every 6 (six) hours. LORazepam (Ativan) 0.5 MG tablet 1 (one) time each day at the same time. ondansetron ODT (Zofran-ODT) 4 MG disintegrating tablet Take 1 tablet (4 mg) by mouth 1 (one) time each day at the same time 20 tablet 0 Spiriva Respimat 2.5 MCG/ACT inhaler 1 (one) time each day at the same time. spironolactone (Aldactone) 25 MG tablet TAKE 1 TABLET BY MOUTH EVERY DAY FOR 90 DAYS Symbicort 160-4.5 MCG/ACT inhaler every 12 (twelve) hours. traZODone (Desyrel) 50 MG tablet Take 1 tablet (50 mg) by mouth at bedtime 30 tablet 5 Zoirqwrlisf-Kdsaoygdt-Jhaywy (Trelegy Ellipta) 200-62.5-25 MCG/ACT aerosol powder Inhale 1 puff Daily 1 each 5 No current facility-administered medications for this visit. Past Medical History: Diagnosis Date Abscess of sigmoid colon due to diverticulitis 01/17/2024 Angina pectoris ([facility]) Cardiogenic pulmonary edema ([facility]) 01/17/2024 Colostomy present ([facility]) COPD (chronic obstructive pulmonary disease) ([facility]) H/O ileostomy Heart failure ([facility]) History of stomach ulcers Hyponatremia 01/17/2024 Single subsegmental thrombotic pulmonary embolism without acute cor pulmonale ([facility]) 09/07/2019 Smoking 01/17/2024 Syncope 01/17/2024 Past Surgical History: Procedure Laterality Date ANKLE SURGERY Left AORTIC STENT 05/2018 APPENDECTOMY COLECTOMY 2019 ILEOSTOMY US GUIDED PERCUTANEOUS PERITONEAL OR RETROPERITONEAL FLUID COLLECTION DRAINAGE 08/18/2019 US GUIDED PERCUTANEOUS PERITONEAL OR RETROPERITONEAL FLUID COLLECTION DRAINAGE 08/18/2019 US GUIDED PERCUTANEOUS PERITONEAL OR RETROPERITONEAL FLUID COLLECTION DRAINAGE 08/23/2019 US GUIDED PERCUTANEOUS PERITONEAL OR RETROPERITONEAL FLUID COLLECTION DRAINAGE 08/23/2019 Family History Problem Relation Name Age of Onset Throat cancer Mother No Known Problems Sister 3 - healthy Social History Tobacco Use Smoking status: Former Types: Cigarettes Smokeless tobacco: Never Substance Use Topics Alcohol use: Never Comment: soda/pop 1-2 cups/day BP 131/88 (BP Location: Left arm, Patient Position: Sitting) Pulse 84 Ht 5' 6 Wt 250 lb SpO2 93% BMI 40.35 kg/m Exam: Heart: regular rate Lungs: clear to auscultation bilaterally, no wheezes/rales/rhonchi, no resp distress Extremities: no edema noted, no visible rashes Neuro: alert, oriented x3 Imaging Reviewed: PFT's from January 2024 reviewed--FVC 2.02 L (49 %), FEV1 1.38 L (43 %), ratio 68 %, significant bronchodilator response, no hyperinflation present, air trapping present, normal DLCO Images and report of chest x-ray from December 2023 reviewed--COPD changes, pleural and parenchymal findings consistent with interstitial lung disease Assessment/Plan: COPD -- his PFTs do demonstrate evidence of mild changes consistent with COPD. At this time he is currently using Spiriva and Symbicort but is not well controlled. He does have flare-ups every few months. At this time we discussed adjusting his regimen. He was given samples and a prescription of Trelegy at today's office visit. He will continue with this once daily and use albuterol as needed. He may benefit from pulmonary rehab in the future, however this time we will try the medication adjustments 1st. He does also likely have a role of sleep apnea that is playing into her symptoms as well. Patient states he does also have some anxiety that is playing a role in to his current symptoms of shortness of breath as well. This does continue to be managed by his primary care physician's office. Hypersomnolence/possible sleep apnea -- at this time I do have concerns that he has a component QASIM playing a role in his symptoms as well. He does complain of snoring, apneas, excessive daytime sleepiness, and not feeling well rested upon wakening in the morning. He states he was to have a sleep study performed several years ago, however had some abdominal issues and this was postpone. This never got rescheduled. At this time he is agreeable to having this sleep study performed. This will be done at home. The order will be sent to the home sleep study company today. CPAP or BiPAP will be arranged for him once his sleep study is reviewed if he qualifies. The patient understands the plan and is agreeable. He will follow here in a few months time. Follow up in about 2 months (around 06/26/2024) for COPD, sleep study. Misti Pardo DO documented in this encounter [facility] 01-02-2024 Note Addended by: JOHN COLLIER on: 01/02/2024 09:47 AM Modules accepted: Orders [facility] 01-02-2024 Miscellaneous Notes Addended by: JOHN COLLIER on: 01/02/2024 09:47 AM Modules accepted: Orders Addended by: JOHN COLLIER on: 12/29/2023 12:25 PM Modules accepted: Orders documented in this encounter [facility] 12-29-2023 Note Addended by: JOHN COLLIER on: 12/29/2023 12:25 PM Modules accepted: Orders [facility] 12-29-2023 Note Addended by: JOHN COLLIER on: 12/29/2023 12:25 PM Modules accepted: Orders [facility] 12-29-2023 Note Addended by: JOHN COLLIER on: 12/29/2023 12:25 PM Modules accepted: Orders [facility] 12-29-2023 Miscellaneous Notes Addended by: JOHN COLLIER on: 12/29/2023 12:25 PM Modules accepted: Orders documented in this encounter [facility] 12-29-2023 Note S: patient has been doing well since his last evaluation with Dr. Wilson. He has been seen for evaluation of his ileostomy takedown. He has a significant medical history including CHF, COPD, CAD s/p PIC on ASA/plavix and as of his last visit he was supposed to follow up with his PCP, Dr. Ocampo. He did not complete that visit and we currently do not have records from him. He has not seen his top coater or his reconciliation coordinator in some time, but he will set up an appointment for medical risk stratification and optimization prior to going to our next clinic visit. Plan: We will follow up on operative risk stratification from his reconciliation coordinator and his top coater We will schedule to see him in clinic in 1 month after these items are completed. We ask that he provide the fax number [phone] to his providers to send the pre op evaluation documents to our office [facility] 12-29-2023 History of Presen t illness Narrative S: patient has been doing well since his last evaluation with Dr. Wilson. He has been seen for evaluation of his ileostomy takedown. He has a significant medical history including CHF, COPD, CAD s/p PIC on ASA/plavix and as of his last visit he was supposed to follow up with his PCP, Dr. Ocampo. He did not complete that visit and we currently do not have records from him. He has not seen his top coater or his reconciliation coordinator in some time, but he will set up an appointment for medical risk stratification and optimization prior to going to our next clinic visit. Plan: We will follow up on operative risk stratification from his reconciliation coordinator and his top coater We will schedule to see him in clinic in 1 month after these items are completed. We ask that he provide the fax number [phone] to his providers to send the pre op evaluation documents to our office documented in this encounter [facility] 12-29-2023 History of Presen t illness Narrative S: patient has been doing well since his last evaluation with Dr. Wilson. He has been seen for evaluation of his ileostomy takedown. He has a significant medical history including CHF, COPD, CAD s/p PIC on ASA/plavix and as of his last visit he was supposed to follow up with his PCP, Dr. Ocampo. He did not complete that visit and we currently do not have records from him. He has not seen his top coater or his reconciliation coordinator in some time, but he will set up an appointment for medical risk stratification and optimization prior to going to our next clinic visit. Plan: We will follow up on operative risk stratification from his reconciliation coordinator and his top coater We will schedule to see him in clinic in 1 month after these items are completed. We ask that he provide the fax number [phone] to his providers to send the pre op evaluation documents to our office documented in this encounter [facility] 08-17-2022 Instructions Vanessa Wilson MD - 08/17/2022 2:28 PM EST Please send records from Dr. Ocampo to [facility] after appointment this upcoming Wednesday. Attn: Vanessa Wilson MD Trauma, Emergency General Surgery, Burn, and Surgical Critical Care Obtaining information to determine cardiac risk for Elective ileostomy reversal, possible exploratory laparotomy, possible bowel resection. Not an emergent or urgent surgery. documented in this encounter [facility] 08-17-2022 History of Presen t illness Narrative Images from the original note were not included. Trauma/Acute Care Surgery Clinic Note Eliceo Kenny is a 56 year old male with a history of hypothyroidism, [place], CHF, COPD, CAD (s/p PCI on ASA/Plavix), hypertension, who has a history of perforated diverticulitis with feculent peritonitis s/p ex lap, sigmoidectomy, and end colostomy creation July [address] Juares. 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 He underwent emergent takedown of the colostomy with lysis of adhesions mobilization of the splenic flexure, colonoscopy, colorectal anastomosis with a diverting loop ileostomy on 10/12/[address] Lind. He was discharged in good condition on 10/20/20. He was seen in December 2020 to discuss possible reversal of ileostomy, and was scheduled for surgery 04/21/2021, but had to cancel due to personal reasons. He then presented to the ED on 05/03/2021 with pain and swelling of the umbilicus. CT scan demonstrated abscess at umbilicus as well as stranding/inflammation intra-abdominally just inferior to the umbilicus. He underwent bedside I&D and drain placement on 05/03/2021 and was discharged home on 05/05/2021 with 3 more days of zyvox. He was seen in clinic on 05/13/2021 for a wound check which was healing well. He returned to ED from [place] for abdominal pain and drainage of midline wound. He underwent I&D on after CT showed abscess collection. He followed up for a wound check on 08/12/2021, and it was healing well. He was seen in clinic in December 2021 in follow up, and had been pending possible pacemaker vs defibrillator. He presents today because he states he wants to touch base about his ostomy and ensure he remained an active patient in the clinic. Since last visit, he states he has been eating well and maintaining his weight. He has not had any additional issues with abscesses or infections at his umbilicus. He does state he recently had an admission to [facility] about 3 weeks prior for possible stroke vs panic attacks, though he is not certain if he was determined to have a stroke or not. He states his ostomy has been more manageable - he is able to change his bag every 3-4 days instead of daily, although he notes some food causes him to have high output. He has been using his lomotil. He takes his daily inhalers and medication for COPD, and has to use his rescue inhaler 3-4 times a day. He states he wants to discuss the process to reverse his ileostomy. He has seen his reconciliation coordinator and states he was told that having a defibrillator or pacemaker (he is not sure which) would be up to his decision. On exam, the patient is awake, alert, ambulating easily around the room. The patient's breathing is somewhat labored, but no wheezing or having to catch breath between statements like prior visits. The abdomen is soft, nontender, nondistended. Midline scar well healed without pain or erythema. Large midline hernia without pain. Parastomal hernia present without tenderness or overlying skin changed. Ostomy pink and patent with air and stool in bag. Discussed that since his ostomy is currently functioning, there is no urgency to having it reversed. Discussed that I do understand there are self image and comfort related issues with having an ileostomy, and that these are very valid reasons to want it reversed. However, discussed that several evaluations need to occur prior to setting up a procedure. I will need records from his reconciliation coordinator, especially since he is potentially recommended for either a pacemaker or defibrillator, and I would like records from his top coater (Dr. Solis at [facility]) since he requires frequent use of his rescue inhaler and he often appears in the office audibly wheezing. He has not had any colonoscopy in any of the records I have visible at [facility], and he states if he ever had one, it would have been through [facility]. I would also like his recent records from his admission 3 weeks prior. Discussed that while reversing a diverting loop ileostomy could potentially be locally done around stoma site, he does have a parastomal hernia as well as a midline hernia, and given his multiple prior surgeries and midline abscesses, he has the potential to need an exploratory laparotomy which would both be technically challenging and put him under more physiologic stress. He is already very high risk given his cardiac and pulmonary comorbidities. I explained I need more information before I can adequately careers counsellor him on these risks and have an accurate discussion with him to determine if benefits outweigh substantial risks. I had him sign medical release forms to obtain records from [facility]. He states he has an appointment with cardiology this upcoming Wednesday, and I encouraged him to have them send his records during that visit. I provided the fax number and directions. Will plan for follow up once these have been obtained. Answered all question to the best of my ability. Vanessa Wilson MD documented in this encounter [facility] 08-06-2022 Telephone encounter Note Pt was last seen in December 2021, pt would like to see Dr. Wilson for a follow-up he is experiencing some discomfort and would like the doctor to review things with him concerning his health 08/17/2022 at 2:45 pm [facility] 08-06-2022 Miscellaneous Notes Pt was last seen in December 2021, pt would like to see Dr. Wilson for a follow-up he is experiencing some discomfort and would like the doctor to review things with him concerning his health 08/17/2022 at 2:45 pm documented in this encounter [facility] 12-30-2021 History of Presen t illness Narrative Images from the original note were not included. Trauma/Acute Care Surgery Clinic Note Eliceo Kenny is a 56 year old male with a history of hypothyroidism, [place], CHF, COPD, CAD (s/p PCI on ASA/Plavix), hypertension, who was taken emergently to the operating room for colostomy stricture leading to a large bowel obstruction. He underwent takedown of the colostomy with lysis of adhesions mobilization of the splenic flexure, colonoscopy, colorectal anastomosis with a diverting loop ileostomy on 10/12/[address] Lind. He was discharged in good condition on 10/20. He was seen in December 2020 to discuss possible reversal of ileostomy, and was scheduled for surgery 04/21/2021, but had to cancel due to personal reasons. He then presented to the ED on 05/03/2021 with pain and swelling of the umbilicus. CT scan demonstrated abscess at umbilicus as well as stranding/inflammation intra-abdominally just inferior to the umbilicus. He underwent bedside I&D and drain placement on 05/03/2021 and was discharged home on 05/05/2021 with 3 more days of zyvox. He was seen in clinic on 05/13/2021 for a wound check which was healing well. He returned to ED from [place] for abdominal pain and drainage of midline wound. He underwent I&D on 07/[address] showed abscess collection. He followed up for a wound check on 08/12/2021, and it was healing well. He presents today to further discuss the ileostomy. Since he was last seen, he has not had further issue with new wounds or abscesses. He states his ostomy produces air and gas without difficulty. He denies any abdominal pain or discomfort. He does state he has had daily nausea that he wakes up with in the morning, and it usually goes away by afternoon. In the afternoon, he states he can then eat two good meals, and states he has not been losing weight. He states he currently feels nauseated intermittently while he is present in the office, but he states his ostomy has been productive of the usual air and stool, and he has no abdominal pain. He states the nausea often corresponds with his anxiety. He states his chest feels heavy, but it is his usual heaviness . Denies new chest pain. He does state that his reconciliation coordinator wants to evaluate him for defibrillator placement. On exam, the patient is moving around the room easily, but appears uncomfortable due to nausea and has some pressured speech. The patient is breathing easily on room air and the heart rate is regular rate. The abdomen is soft, nontender, nondistended. Loop ileostomy pink with air and stool in bag. Midline without any wounds, erythema, induration, or drainage. His wounds have healed and he has not had any new episodes of subcutaneous abscess since July 2021. I discussed that I was concerned about his nausea - does not appear to be an abdominal source given lack of pain, normal ostomy output, ability to tolerate a diet, but I did state it can be a manifestation of acute heart complications. I did recommend going to the ED for further evaluation, but he insisted this nausea has been present for weeks and he does not feel any different than his usual shortness of breath, and he declines to go to the ED. His vital signs on arrival are within usual limits. Discussed that while I understand having an ostomy is not ideal, reversal is not urgent, and he is very high risk for any elective surgery given his baseline medical comorbidities. Recommended he continue to follow with his reconciliation coordinator and top coater for management. I did also suggest that if he has any acute concerns about his abdomen that I recommend he try to go to the [facility] ED in [place] if he is able to get there instead of [facility] since myself and my partners rotate covering emergency general surgery call at [facility] 15/02. In the meantime, no scheduled follow up, but I did encourage him to keep in contact with any questions, concerns, or if clinically his comorbid conditions stabilize. Ensured he had contact information and instruction. Vanessa Wilson MD Patient was identified by name and date of . Donna Rushing RN, RN Patient at risk for falls:No Falls Risk protocol implemented: No documented in this encounter [facility] 12-30-2021 Instructions Vanessa Wilson MD - 12/30/2021 1:31 PM EDT If you are concerned about your ostomy (the bag) or about a new abscess or anything related to your abdomen - come to the [facility] in [place] if you can, and ask for the Trauma team. Me any my team also rotate out there. Keep your follow up appointments with Dr. Ocampo. I do not recommend surgery right now until you find out whether you need a defibrillator because you are very high risk for having a postoperative cardiac event (heart attack, bad heart rhythm, heart failure worsening) and you are very high risk to not get off the ventilator easily. Keep in touch, and call for a follow up if you have questions or problems. I am Dr. Vanessa Wilson, I will take over documented in this encounter [facility] 12-19-2021 Telephone encounter Note Tried to reach patient about appt on that we needed to move to 6/7 and I got his voicemail that was not set up I will try back [facility] 12-19-2021 Miscellaneous Notes Tried to reach patient about appt on that we needed to move to 6/7 and I got his voicemail that was not set up I will try back documented in this encounter [facility] Evaluation + Plan note No data available for this section [facility] Evaluation + Plan note Future Appointments Appointment Date:08/24/2024 02:45:00 PM Scheduled Provider:Blanco Lazcano MD Location:FT.Cardiology Clinic Appointment Type:Cardiology Follow Up (FT) [facility] Evaluation note Diagnosis Attention to ileostomy (HCC)- Primary Attention to ileostomy Body mass index (BMI) 35.0-35.9, adult [facility] Work Phone: Evaluation note* Diagnosis Attention to ileostomy (HCC)- Primary Attention to ileostomy Chronic obstructive pulmonary disease, unspecified COPD type (HCC) Ischemic cardiomyopathy Other specified forms of chronic ischemic heart disease S/P colostomy takedown [facility]* Diagnosis Ileostomy in place (HCC)- Primary Ileostomy status CAD S/P percutaneous coronary angioplasty Chronic obstructive pulmonary disease, unspecified COPD type (HCC) Chronic congestive heart failure, unspecified heart failure type (HCC) [facility]* Diagnosis Ileostomy in place (HCC)- Primary Ileostomy status CAD S/P percutaneous coronary angioplasty Chronic obstructive pulmonary disease, unspecified COPD type (HCC) Chronic congestive heart failure, unspecified heart failure type (HCC) [facility] Diagnosis Chronic obstructive pulmonary disease, unspecified COPD type (CMS/HCC)- Primary COPD with acute exacerbation (CMS/HCC) Hypersomnolence Hypersomnia, unspecified [facility] illness NarrativePatient returns in follow-up of problems as noted. He is done well from a cardiac standpoint. He was hospitalized for COVID-19 pneumonia. During the hospitalization he was evaluated for coronary disease and/or ischemia and none was identified. Because of this we believe his coronary disease to be stable. We discussed management of his risk factors including blood pressure and cholesterol and these risk factors to be well controlled. He has none of the symptoms of ischemic cardiomyopathy had thepast such as ventricular arrhythmia because of this we believe he is stable. The merits of diet lifestyle modification exercise and weight loss were reviewed with him.[facility] 6APT DO Work Phone: History of Present illness NarrativePatient returns in follow-up of problems as noted. He is done well from a cardiac standpoint. He was hospitalized for COVID-19 pneumonia. During the hospitalization he was evaluated for coronary disease and/or ischemia and none was identified. Because of this we believe his coronary disease to be stable. We discussed management of his risk factors including blood pressure and cholesterol and these risk factors to be well controlled. He has none of the symptoms of ischemic cardiomyopathy had thepast such as ventricular arrhythmia because of this we believe he is stable. The merits of diet lifestyle modification exercise and weight loss were reviewed with him.[place] [address] DO Work Phone: History of Present illness Narrative* Patient returns for follow-up of problems as noted. He is done well. He denies any angina CHF or arrhythmia symptomatology. Management of risk factors including cholesterol and blood pressure is reviewed and control appears good. Because of this we will continue as before. He has no manifestations of his ischemic cardiomyopathy and he understands reason and rationale for the plan of care * He apparently has a colostomy that he wishes to have reversed. His surgeon, though, states that shewants him to have a defibrillator implant before the surgery is done. I advised him its not even clear whether or not he needs 1. Because of this I recommended a MUGA scan to reassess his ejection fraction and make a determination as to whether or not device implantation is necessary. There is an isotope shortage and because of this there will be a delay and he understands and finds this acceptable. In the meantime he will continue therapy as is and he was encouraged to work on eliminating nicotine from his lifestyle. The merits of diet exercise and weight loss were also advocated. [place] [address] DO Work Phone: History of Present illness Narrative* Patient returns in follow-up of problems as noted. From a cardiac standpoint he is done relatively well although he admits to a sedentary lifestyle. He has none of the symptoms of coronary disease that preceded his original diagnostic evaluation and intervention. We reviewed with him signs and symptoms of malignant ventricular tachyarrhythmia and he denies any such symptomatology. In this regard we also reviewed the recent MUGA scan which demonstrates ejection fraction 35% and he wishes to forego consideration of defibrillator implantation and I believe is reasonable. * He is, though, interested in a surgical reversal of his colostomy. Surgery is pending in several months. Chart review demonstrates that he was diagnosed with coronary disease which was minimally symptomatic prior to intervention. We are concerned regarding the elapse of the time since his last evaluation and the potential for progressive coronary atherosclerosis, particularly because he is sedentary and would not provoke any symptoms that would alert us to such a development. Because of this and the plan for a rather major surgical undertaking I recommend he undergo a Lexiscan Cardiolite stress test to evaluate for disease that could complicate his procedure. [place] [address] DO Work Phone: Hospital Discharge instructions No data available for this section [facility] No data available for this section [facility] [place] Summary Purpose Family History No Family History Records FoundUnknown Family Member Name Dates Details Family history of malignant neoplasm: Mother(V16.9, Z80.9) Status:Active Unknown Family Member Name Dates Details Family history of malignant neoplasm: Mother(V16.9, Z80.9) Status:Active Unknown Family Member Name Dates Details Family history of malignant neoplasm: Mother(V16.9, Z80.9) Status:Active Unknown Family Member Name Dates Details Family history of malignant neoplasm: Mother(V16.9, Z80.9) Status:Active Unknown Family Member Name Dates Details Family history of malignant neoplasm: Mother(V16.9, Z80.9) Status:Active Unknown Family Member Name Dates Details Family history of malignant neoplasm: Mother(V16.9, Z80.9) Status:Active Unknown Family Member Name Dates Details Family history of malignant neoplasm: Mother(V16.9, Z80.9) Status:Active Unknown Family Member Name Dates Details Family history of malignant neoplasm: Mother(V16.9, Z80.9) Status:Active Unknown Family Member Name Dates Details Family history of malignant neoplasm: Mother(V16.9, Z80.9) Status:Active Unknown Family Member Name Dates Details Family history of malignant neoplasm: Mother(V16.9, Z80.9) Status:Active Unknown Family Member Name Dates Details Family history of malignant neoplasm: Mother(V16.9, Z80.9) Status:Active Unknown Family Member Name Dates Details Family history of malignant neoplasm: Mother(V16.9, Z80.9) Status:Active Relationship Condition Age at Onset Recorded Date/T rosario Not Specified Hypertension Unknown Unknown Family Member Name Dates Details Family history of malignant neoplasm: Mother(V16.9, Z80.9) Status:Active Unknown Family Member Name Dates Details Family history of malignant neoplasm: Mother(V16.9, Z80.9) Status:Active Unknown Family Member Name Dates Details Family history of malignant neoplasm: Mother(V16.9, Z80.9) Status:Active Unknown Family Member Name Dates Details Family history of malignant neoplasm: Mother(V16.9, Z80.9) Status:Active Unknown Family Member Name Dates Details Family history of malignant neoplasm: Mother(V16.9, Z80.9) Status:Active Unknown Family Member Name Dates Details Family history of malignant neoplasm: Mother(V16.9, Z80.9) Status:Active Unknown Family Member Name Dates Details Family history of malignant neoplasm: Mother(V16.9, Z80.9) Status:Active Unknown Family Member Name Dates Details Family history of malignant neoplasm: Mother(V16.9, Z80.9) Status:Active Advance Directives No Advanced Directives Records FoundLatest Code Status on File Code Status Date Activated Date Inactivated Comments Full Code 05/04/2021 5:38 AM 05/05/2021 1:46 PM Documentation of decision pr ocess for this code status: Discussed with patient or surrogate. Thi s is the code status chosen by the patient/surrogate. Full Code 11/12/2020 5:44 PM 11/16/2020 2:58 PM Full Code 10/12/2020 8:21 PM 10/20/2020 4:00 PM Full Code 10/10/2020 6:14 PM 10/12/2020 8:21 PM Documentation of decision pr ocess for this code status: Patient and surrogate unable or unavailable to discuss. There is no previous documentation of code status. Defaulting to Full Code Full Code 03/25/2020 4:14 AM 03/26/2020 3:27 PM Advance Directive Response Recorded Date/ Time Advance Directives No May 28, 2018 3:14am Advance Directive Response Recorded Date/ Time Advance Directives No May 28, 2018 2:14am Date Activated Date Inactivated Comments 05/04/2021 5:38 AM 05/05/2021 1:46 PM Question Answer Comments Documentation of decision pr ocess for this code status: Discussed with patient or surrogate. This is the code status chosen by the patient/surrogate. Date Activated Date Inactivated Comments 11/12/2020 5:44 PM 11/16/2020 2:58 PM Question Answer Comments Documentation of decision pr ocess for this code status: Discussed with patient or surrogate. This is the code status chosen by the patient/surrogate. Date Activated Date Inactivated Comments 10/12/2020 8:21 PM 10/20/2020 4:00 PM Question Answer Comments Documentation of decision pr ocess for this code status: Discussed with patient or surrogate. This is the code status chosen by the patient/surrogate. Date Activated Date Inactivated Comments 10/10/2020 6:14 PM 10/12/2020 8:21 PM Question Answer Comments Documentation of decision pr ocess for this code status: Patient and surrogate unable or unavailable to discuss. There is no previous documentation of code status. Defaulting to Full Code Date Activated Date Inactivated Comments 03/25/2020 4:14 AM 03/26/2020 3:27 PM Question Answer Comments Documentation of decision pr ocess for this code status: Discussed with patient or surrogate. This is the code status chosen by the patient/surrogate. Chief Complaint ELICEO KENNY is being seen for a 5 month follow-up of. [facility] Discharge 06/14/2021[facility] ZOYA is being seen for a 5 month follow-up of. [facility] Discharge 06/14/2021[facility] ZOYA is being seen for a 6 month follow-up of.ELICEO KENNY is being seen for a 6 month follow-up of. Chief Complaint and Reason for Visit Chief Complaint R41.3 G47.00 E03.9 I 10 F41.1 E66.9 I25.10 Chief Complaint R41.3 G47.00 E03.9 I 10 F41.1 E66.9 I25.10 g47.33 g47.10 g47.09 e66.9 f51.8 gasp/choke copd Reason for Referral Specialty Diagnoses / Procedures Referred By Contac t Referred To Contact Diagnoses Chronic obstructive pulmonary disease, unspecified COPD type ([facility]/HCC) Misti Pardo, DO [address] [place] [address] Referral ID Status Reason Start Date Expiration Date Visits Re quested Visits Authorized [id number] Closed 1 1 Additional Source Comments (unrecognized sect ion and content) No Status Records FoundNo Status Records FoundNo Status Records FoundNo Status Records FoundNo Status Records FoundNo Status Records FoundNo Status Records FoundNo Status Records FoundNo Status Records Found INFORMATION SOURCE (unrecogn ized section and content) DATE CREATED AUTHOR 10/23/2018 formerly [facility] DATE CREATED AUTHOR AUTHOR'S ORGANIZ ATION 05/16/2022 [facility] DATE CREATED AUTHOR AUTHOR'S ORGANIZ ATION 07/28/2022 [facility] DATE CREATED AUTHOR AUTHOR'S ORGANIZ ATION 2022 [facility] DATE CREATED AUTHOR AUTHOR'S ORGANIZ ATION 2022 [employer] DATE CREATED AUTHOR AUTHOR'S ORGANIZ ATION 10/13/2022 [facility] DATE CREATED AUTHOR AUTHOR'S ORGANIZ ATION 03/11/2024 [facility] DATE CREATED AUTHOR AUTHOR'S ORGANIZ ATION 04/28/2024 [facility] EPIC DATE CREATED AUTHOR AUTHOR'S ORGANIZ ATION 05/31/2024 [facility] Care Teams (unrecognized sec tion and content) Shop Tailor Relationship Specialty Start Date End Date Tawnay Pepper [address] [place] [address] PCP - General Family Medicine 03/28/[address] [id number] 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 04/30/20 Manjula Lind MD, PhD [address] [place] [address] [address] [place], [place] [id number] Physician Trauma Surgery 04/25/21 Shop Tailor Relationship Specialty Start Date End Date Tawnya Pepper [address] [place] [address] PCP - General Family Medicine 03/28/[address] [id number] 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 04/30/20 Manjula Lind MD, PhD [address] [place] [address] [address] [place], [place] [id number] Physician Trauma Surgery 04/25/21 Team Status: Inactive Member Role Status Dates Carmine Jackson DO Attending Provider Active Medhat Baltazar , DO RES Referring Provider Active Team Status: Inactive Member Role Status Dates Medhat Baltazar , DO RES Attending Provider Active Team Status: Inactive Member Role Status Dates Medhat Baltazar DO RES Referring Provider Active Carolyn Dugan MD Attending Provider Active Shop Tailor Relationship Specialty Start Date End Date Tawnya Pepper [address] [place] [address] PCP - General Family Medicine 03/28/[address] [address] 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 04/30/20 Manjula Lind MD, PhD [address] [place] [address] [place] [address] Physician Trauma Surgery 04/25/21 Shop Tailor Relationship Specialty Start Date End Date Tawnya Pepper [address] [place] [id number] PCP - General Family Medicine 03/28/[address] [address] 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 04/30/20 Manjula Lind MD, PhD [address] [place] [address] [place] [address] Physician Trauma Surgery 04/25/21 Shop Tailor Relationship Specialty Start Date End Date Tawnya Pepper [address] [place] [address] PCP - General Family Medicine 03/28/[address] [address] 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 04/30/20 Manjula Lind MD, PhD [address] [place] [address] [place] [address] Physician Trauma Surgery 04/25/21 Vanessa Wilson MD [address] [place] [address] [place] [address] Physician Trauma Surgery 08/29/22 Shop Tailor Relationship Specialty Start Date End Date Tawnya Pepper [address] [place] [address] PCP - General Family Medicine 03/28/20 Cee Leo LISW [address] [address] 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 04/30/20 Manjula Lind MD, PhD [address] [place] [address] [place] [address] Physician Trauma Surgery 04/25/21 Vanessa Wilson MD [address] [place] [address] [place] [address] Physician Trauma Surgery 08/29/22 Shop Tailor Relationship Specialty Start Date End Date Amber Cuellar DO [address] [place] [id number] PCP - General Family Medicine 12/01/22 Shop Tailor Relationship Specialty Start Date End Date Amber Cuellar DO [address] [place] [id number] PCP - General Family Medicine 12/01/22 Goals (unrecognized section and content) Goals may be documented in a n alternate sectionGoals may be documented in an alternate section No data available for this section No data available for this section Reason for Visit (unrecogniz ed section and content) Reason Comments New patient, to establish relationship P cesar is new to me, has seen dr. Wilson before Reason Comments COPD Consultation Specialty Diagnoses / Procedures Referred By Contac t Referred To Contact Pulmonary Disease / Pulmonology Diagnoses COPD with acute exacerbation ([facility]) Procedures [place] OFFICE/OUTPATIENT NEW HIGH MDM 60 MINUTES Amber Cuellar, DO [address] [place] [address] Misti Pardo, DO [address] [place] [address] Referral ID Status Reason Start Date Expiration Date V isits Requested Visits Authorized [id number] Closed Specialty Services Required 01/17/2024 07/15/2024 1 1 FOR RECORDS PERTAINING TO PATIENTS WHO ARE OR HAVE BEEN ENROLLED IN A CHEMICAL DEPENDENCY/SUBSTANCEABUSE PROGRAM, SOME INFORMATION MAY BE OMITTED. This clinical summary was aggregated from multiple sources. Caution should be exercised in using it in the provision of clinical care. This summary normalizes information from multiple sources, and as a consequence, information in this document may materially change the coding, format and clinical context of patient data. In addition, data may be omitted in some cases. CLINICAL DECISIONS SHOULD BE BASED ON THE PRIMARY CLINICAL RECORDS. [employer] provides no warranty or guarantee of the accuracy or completeness of information in this document.
--- NOTE | 2024-06-02 14:22 | ECG_ITS ---
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
--- NOTE | 2024-06-02 14:22 | XR_ITS ---
The [address] [address] Patient Name: BO KENNY MRN: [id number] date: 1965 Sex: M Assigned Patient Location: ER Current Patient Location: ER Accession/Order Number: [id number] Exam Date: 06/02/2024 14:52 Report Date: 06/02/2024 15:07 At the request of: SHAY BRADLEY Procedure: XR chest 2V EXAMINATION: XR chest 2V HISTORY: shortness of breath COMPARISON: XR chest 05/03/2024 FINDINGS: LUNGS: No significant pulmonary parenchymal abnormalities. VASCULATURE: No increased pulmonary vasculature. PLEURA: Chronic right lateral pleural thickening. No pneumothorax or pleural effusion. CARDIAC: No cardiomegaly or cardiac silhouette abnormality. MEDIASTINUM: No visible mass or adenopathy. BONES: No fracture or visible bone lesion. OTHER: Negative. XR/XR chest 2V IMPRESSION: 1. No acute cardiopulmonary process. Electronically authenticated by: CLAIR YEPEZ Date: 06/02/2024 15:07
[2024-06-02] MEDS: MORPHINE SULFATE 2 MG/ML SYRINGE IV (14:45)
[2024-06-02] MEDS: METHYLPREDNISOLONE SOD SUCC PF 125 MG/2 ML VIAL IVP (14:45)
[2024-06-02] MEDS: ACETAMINOPHEN 500 MG TABLET 1000 MG PO (14:45)
[2024-06-02] MEDS: ASPIRIN 81 MG TAB.CHEW 324 MG PO (14:45)
[2024-06-02] MEDS: IPRATROPIUM/ALBUTEROL SULFATE 3 ML AMPUL.NEB IH ×2 (15:01→23:23)
[2024-06-02] MEDS: ONDANSETRON PF 4 MG/2 ML VIAL IV ×2 (15:04→20:00)
[2024-06-02 15:06] LABS: Basophils Percent Auto 0.4 % (0.2-2.0); Hematocrit 43.5 % (42.0-54.0); Hemoglobin 14.8 g/dL (14.0-18.0); Immature Granulocytes Abs Auto 0.02 10^3/uL (0.00-0.03); Immature Granulocytes Pct Auto 0.4 % (0.0-0.5); Lymphocytes Absolute Auto 0.8 10^3/uL (1.2-3.8); Lymphocytes Percent Auto 13.3 % (20.5-60.0); Mean Corpuscular Hemoglobin 34.4 pg (25.9-34.0); Mean Corpuscular Volume 101.2 fL (80.0-94.0); Mean Platelet Volume 10.1 fL (9.5-13.5); Monocytes Absolute Auto 0.6 10^3/uL (0.3-0.8); Monocytes Percent Auto 10.2 % (1.7-12.0); Neutrophils Absolute Auto 4.3 10^3/uL (1.4-6.5); Neutrophils Percent Auto 75.7 % (43.0-75.0); Platelet Count 186 10^3/uL (150-450); Red Cell Distribution Width 13.6 % (11.0-15.0); White Blood Count 5.7 10^3/uL (4.0-11.0)
[2024-06-02 15:15] LABS: Magnesium 2.5 mg/dL (1.8-2.4)
[2024-06-02 15:18] LABS: Influenza Virus A Antigen Negative; Influenza Virus B Antigen Negative; Internal Control Within Normal Limits
[2024-06-02 15:19] LABS: SARS-CoV-2 Ag POSITIVE (NEGATIVE)
[2024-06-02 15:20] LABS: INR 0.97; Prothrombin Time 10.3 sec (9.0-11.6)
[2024-06-02 15:27] LABS: Troponin I High Sensitivity 15.5 pg/mL (4.0-76.1)
--- NOTE | 2024-06-02 15:34 | ED.GENADUL1 ---
HPI HPI - General Adult General Chief complaint: Chest Pain Stated complaint: SHORTNESS OF BREATH/ CHEST PAIN Time Seen by Provider: 06/02/24 14:15 Source: patient Mode of arrival: walk-in History of Present Illness HPI narrative: 58-year-old male presents emergency room chief complaint of shortness of breath. Patient has a history of COPD and states he said increased shortness of breath and had to use his oxygen at home for last several days. he was hospitalized last month for similar symptoms. He states he has some substernal pain with deep inspiration which is reproduced with palpation of the chest. He denies any headache or nausea. It is labored with his respiratory breathing with audible expiratory wheezing. He is wearing a mask. Denies any known sick contacts. Related Data Home Medications ?Medication ?Instructions ?Recorded ?Confirmed aspirin 81 mg capsule 81 mg PO DAILY 05/01/24 05/01/24 atorvastatin 80 mg tablet 80 mg PO DAILY 05/01/24 05/01/24 carvedilol 6.25 mg tablet 6.25 mg PO BID 05/01/24 05/01/24 clopidogrel 75 mg tablet 75 mg PO DAILY 05/01/24 05/01/24 furosemide 40 mg tablet 40 mg PO DAILY 05/01/24 05/01/24 levothyroxine 200 mcg tablet 200 mcg PO DAILY 05/01/24 05/01/24 (Euthyrox) lisinopril 2.5 mg tablet 2.5 mg PO DAILY 05/01/24 05/01/24 loperamide 2 mg capsule (Imodium 4 mg PO Q8H PRN loose stool 05/01/24 05/01/24 A-D) lorazepam 0.5 mg tablet (Ativan) 0.5 mg PO DAILY PRN anxiety 05/01/24 05/01/24 ondansetron 4 mg disintegrating 4 mg PO QDAY 05/01/24 05/02/24 tablet potassium chloride 20 mEq 40 meq PO DAILY 05/01/24 05/02/24 tablet,extended release(part/cryst) (Klor-Con M) spironolactone 25 mg tablet 25 mg PO QDAY 05/01/24 05/01/24 (Aldactone) trazodone 50 mg tablet 50 mg PO .hs 05/01/24 05/02/24 albuterol sulfate 90 mcg/actuation 2 inh inhalation Q4H PRN shortness 05/02/24 05/02/24 breath activated powder inhaler of breath Previous Rx's ?Medication ?Instructions ?Recorded azithromycin 250 mg tablet 250 mg PO DAILY #4 tabs 05/04/24 methylprednisolone 4 mg tablets in 4 mg PO DAILY #21 ea 05/04/24 a dose pack Allergies Allergy/AdvReac Type Severity Reaction Status Date / Time Penicillins Allergy Verified 10/13/23 15:50 Opioid HPI Opioid Management Most Recent Opioid Data: Last Pain Scale 1 05/03/24 22:30 05/03/24 Last ORT Total Score 1 05/01/24 20:40 05/01/24 Last ORT Risk Category Low Risk 05/01/24 20:40 05/01/24 Review of Systems ROS Narrative All Systems are negative except as noted/marked.All systems reviewed and otherwise negative [facility] Medical History (Updated 06/02/24 @ 15:48 by ) Morbid obesity ?E66.01 - Morbid (severe) obesity due to excess calories (ICD-10) Current smoker ?F17.200 - Nicotine dependence, unspecified, uncomplicated (ICD-10) HLD (hyperlipidemia) ?E78.5 - Hyperlipidemia, unspecified (ICD-10) (HFpEF) heart failure with preserved ejection fraction ?I50.30 - Unspecified diastolic (congestive) heart failure (ICD-10) HTN (hypertension) ?I10 - Essential (primary) hypertension (ICD-10) CAD (coronary artery disease) ?I25.10 - Atherosclerotic heart disease of [place] coronary artery without angina pectoris (ICD-10) Social History (Updated 05/02/24 @ 00:51 by Corazon Shaw RN) Within the past year, how often did you have a drink containing alcohol: monthly or less Within the past year, how often did you have six or more drinks on one occasion: less than monthly Smoking status: Current some day smoker Second hand tobacco smoke exposure: No Non-prescribed substance use: denies use Highest level of school completed/degree received: GED or equivalent Little interest or pleasure in doing things: not at all Feeling down, depressed, or hopeless: not at all Do you think of yourself as: straight/heterosexual Gender Identity: male Exam Narrative Exam Narrative: All Systems are negative except as noted/marked.All systems reviewed and otherwise negative Nurses note and vital signs reviewed and patient is not hypoxic. General: The patient appears respiratory distress with pursed lip breathing wearing a mask Skin: Warm, dry, no pallor noted. There is no rash noted. Head: Normocephalic, atraumatic Eye: Normal conjunctiva, no drainage, EOMI. PERRL Ears, Nose, Mouth, and Throat: oral mucosa is moist. Nares patent. Mouth without vesicles. Ear canals patent. Tm's without Erythema Cardiovascular: Regular Rate and Rhythm Respiratory: Patient is in MILD DISTRESS with accessory muscle use, lungs are diminished with scattered wheezing no rales or rhonchi Back: non-tender, no CVA tenderness bilaterally to percussion. GI: Normal bowel sounds, no tenderness to palpation, no masses appreciated. No rebound, guarding, or rigidity noted. Musculoskeletal: The patient has no evidence of calf tenderness, no pitting edema, symmetrical pulses noted bilaterally Neurological: A&O x4, normal speech Psychiatric: Cooperative Constitutional Vital Signs, click to edit/add: Last Vital Signs Temp 100.4 F 06/02/24 14:15 Pulse 104 H 06/02/24 15:02 Resp 20 06/02/24 15:02 BP 112/76 06/02/24 14:15 Pulse Ox 91 L 06/02/24 15:02 O2 Del Method Room Air 06/02/24 15:02 Course Vital Signs Vital signs: Vital Signs Temperature 100.4 F 06/02/24 14:15 Pulse Rate 92 H 06/02/24 14:15 Respiratory Rate 22 H 06/02/24 14:15 Blood Pressure 112/76 06/02/24 14:15 Pulse Oximetry 96 06/02/24 14:15 Oxygen Delivery Method Room Air 06/02/24 14:15 Temperature 100.4 F 06/02/24 14:15 Pulse Rate 104 H 06/02/24 15:02 Respiratory Rate 20 06/02/24 15:02 Blood Pressure 112/76 06/02/24 14:15 Pulse Oximetry 91 L 06/02/24 15:02 Oxygen Delivery Method Room Air 06/02/24 15:02 Medical Decision Making MDM Narrative Medical decision making narrative: 58-year-old male presents emergency room chief complaint of shortness of breath. Patient has a history of COPD and states he said increased shortness of breath and had to use his oxygen at home for last several days. he was hospitalized last month for similar symptoms. He states he has some substernal pain with deep inspiration which is reproduced with palpation of the chest. He denies any headache or nausea. It is labored with his respiratory breathing with audible expiratory wheezing. He is wearing a mask. Denies any known sick contacts. Here with chief complaint of shortness of breath. On arrival to the emergency room patient was placed on oxygen and given a breathing treatment. He has been medicated here also with Solu-Medrol IV, .Zofran, morphine and aspirin for chest pain. His pain is more related to deep inspiration pain. Troponin is negative remainder lab work was also negative other than the positive COVID test. Due to patient's history of COPD and respiratory distress he will be admitted to the hospital for COVID and shortness of breath and hypoxia. Patient agrees with plan of care. He has been medicated here also with Solu-Medrol IV. Differential Diagnosis Differential Diagnosis: CHF, COVID, PNEUMONIA Medical Records Medical records reviewed: Yes I reviewed the patient's medical records Lab Data Lab results reviewed: Yes I reviewed the patient's lab results Labs: Lab Results 06/02/24 Range/Units 14:31 WBC 5.7 (4.0-11.0) 10^3/uL RBC 4.30 L (4.70-6.10) 10^6/uL Hgb 14.8 (14.0-18.0) g/dL Hct 43.5 (42.0-54.0) % MCV 101.2 H (80.0-94.0) fL MCH 34.4 H (25.9-34.0) pg MCHC 34.0 (29.9-35.2) g/dL RDW 13.6 (11.0-15.0) % Plt Count 186 (150-450) 10^3/uL MPV 10.1 (9.5-13.5) fL Neut % (Auto) 75.7 H (43.0-75.0) % Lymph % (Auto) 13.3 L (20.5-60.0) % [place] % (Auto) 10.2 (1.7-12.0) % Eos % (Auto) 0.0 L (0.9-7.0) % Baso % (Auto) 0.4 (0.2-2.0) % Neut # (Auto) 4.3 (1.4-6.5) 10^3/uL Lymph # (Auto) 0.8 L (1.2-3.8) 10^3/uL [place] # (Auto) 0.6 (0.3-0.8) 10^3/uL Eos # (Auto) 0.0 (0.0-0.7) 10^3/uL Baso # (Auto) 0.0 (0.0-0.1) 10^3/uL Abs Immat Gran (auto) 0.02 (0.00-0.03) 10^3/uL Imm/Tot Granulo (auto) 0.4 (0.0-0.5) % PT 10.3 (9.0-11.6) sec INR 0.97 Magnesium 2.5 H (1.8-2.4) mg/dL Troponin I High Sens 15.5 (4.0-76.1) pg/mL NT-Pro-B Natriuret Pep 103.0 (<=900.0) pg/mL Influenza Type A Ag Negative Influenza Type B Ag Negative SARS-CoV-2 Ag (CV2AG) Positive A (NEGATIVE) Imaging Data Chest x-ray: Radiologist's impression: ITS Impressions Chest X-Ray 06/02/24 14:22 IMPRESSION: 1. No acute cardiopulmonary process. Electronically authenticated by: CLAIR YEPEZ Date: 06/02/2024 15:07 ECG Data Interpretation: 1419 sinus tachycardia with a rate of 100 bpm AR 154 ms QRS duration 160 ms, no ST elevation or depression no STEMI Discharge Plan Discharge Chief Complaint: Chest Pain Clinical Impression: COVID, Hypoxia Patient Disposition: Admitted as Observation Time of Disposition Decision: 15:45 Condition: Good
--- OUTSIDE RECORDS SUMMARY | 2024-06-02 16:49 | XMS_ITS | CCD ---
Author Organization [facility] CliniSynj Care Team Providers Care Coffee Weigher Name Role Phone PATY GUERRA Attending Unavailable NONE Primary Care Unavailable AARON OCAMPO Attending Unavailable NONE Primary Care Unavailable None, No PCP Unavailable Unavailable Unavailable Unavailable Unknown, Referring Provider Unavailable Unav ailable Tawnya Pepper Primary Care Provider Cee Whittaker Unavailable Diogo SOLIS, PhD, Manjula Putnam Unavailable DO Carmine Jackson Attending Provider [phone] DO Medhat Baltazar Referring Provider Dr. Aaron Ocampo II Attending Unavaila lory MOY, PCP Primary Care Unavailable DO Carmine Jackson Attending Provider DO Medhat Baltazar Referring Provider Delaney, DO [...] Pepper Primary Care Provider Cee Whittaker Unavailable [phone] Diogo SOLIS, PhD, Manjula Putnam Unavailable [phone] Anaiduinn II, Aaron Kuldip Referring Unav ailable McGuinn II, Aaron Dentonrick Attending Unav ailable UNKNOWN, PCP Primary Care Unavailable UNKNOWN, PCP Primary Care Unavailable McGuinn II, Aaron Dentonrick Referring Unav ailable McGuinn II, Aaron Kuldip Attending Unav ailable Lowrie, Restoration Consulting Unavailable [facility] Primary Care Unavaila ble Mast, Shane Attending Unavailable Mast, Shane Admitting Unavailable Carolyn Dugan Attending Unavailable Carolyn Dugan Admitting Unavailable Lowrie, Restoration Referring Unavailable Lowrie, Restoration Referring Unavailable Carmine Jackson Attending Unavailable Carmine Jackson Admitting Unavailable AMBER CUELLAR Primary Care Physician Tawnya Pepper Primary Care Provider Cee Whittaker Unavailable Diogo SOLIS, PhD, Manjula Putnam Unavailable [phone] Steve SOLIS, Vanessa Unavailable PROVIDER, UNKNOWN Attending Unavailable PROVIDER, UNKNOWN Admitting Unavailable TAWNYA PEPPER Primary Care Unavailable CUTLER, AMBER L Attending Unavailable CUTLER, AMBER L Referring Unavailable CUTLER, AMBER L Attending Unavailable CUTLER, AMBER L Referring Unavailable CUTLER, AMBER L Referring Unavailable MISTI PARDO Attending Unavailable CUTLER, AMBER L Referring Unavailable Central , Amber L Primary Care Provider [phone] Blanco Lazcano Attending Unavailable NONE, XXXX Referring Unavailable Allergies Allergy Classification Reported Allergen(s) Allergy Type Date of Onset Reaction(s) Facility (20 sources) Penicillins; Translations: [Penicillins] Allergy to drug (finding) 9 Difficulty Breathing, Reaction (qualifier value) [facility] 250 DO Work Phone: (10 sources) Morphine; Translations: [MORPHINE] Drug Allergy 9 Agitation, Other [facility] Work Phone: (1 source) Morphine Drug Allergy [facility] Repository (1 source) Penicillin Drug Allergy [facility] Repository (5 sources) Penicillins Propensity to adverse reactions to drug 9 Difficulty Breathing [facility] (1 source) Penicillins Drug allergy (disorder) 1 Repository (2 sources) Penicillin G Drug Allergy [...] Start: 03-14-2020 take 2 puff(s) by mo cth twice daily Symbicort 160-4.5 MCG/ACT inhaler Inhale [...] 0 Refills: 0 Ordered: 07-Jul-2021 DO Active Cedykjecrmp-Owbhalowc-Hrbguu (Trelegy Ellipta) 200-62.5-25 MCG/ACT aerosol powder (1 source) Start: 04-26-2024 take 1 puff(s) by inhalation once daily Bxlrpjaheuy-Ectwrzcox-Nttguq (Trelegy Ellipta) 200-62.5-25 MCG/ACT aerosol powder Indications: [...] 4 mg/0.1 mL nasal liquid Use 1 [place] in one nostril (alternate sides) as needed [...] 2018 12:00am June 14, 2018 12:53pm sennosides, long term 8.6 mg oral tablet (7 sources) Start: [...] puff(s) by mo uth once daily Tiotropium Smiley (Spiriva Respimat) 2.5 mcg/actuation mist Active 2 [...] 07-07-2019 End: 08-31-2019 Ergocalciferol (Vitamin D2) Discontinued 97602 UNIT PO We@0900 7 July 07, 2019 12:00am August 31, 2019 4:41am Start: 07-07-2019 End: 08-31-2019 Ergocalciferol (Vitamin D2) Discontinued 30227 UNIT PO We@0900 7 July 07, 2019 [...] mL by inhalation every eight hours Ipratropium Smiley Discontinued 1.25 ML INHALATION Q8H July 26, 2018 12:00am August 31, 2019 4:41am methylPREDNISolone 4 mg oral tablet (2 sources) Corticosteroid Start: 07-07-2019 End: 08-31-2019 take 1 tablet by mouth once Methylprednisolone (Medrol (Bleu)) 4 mg tablets,dose pack Discontinued 0 PO [...] Ischemic cardiomyopathy; Translations: [Atherosclerotic heart disease of [place] coronary artery without angina pectoris] Onset: 10-13-2018 [...] Respiratory failure; insufficiency; arrest (adult) (2 sources) Gvbsr-sg-rvbcozo respiratory failure; Translations: [Acute and chronic respiratory [...] 0 10-12-2019 Episodic Other aftercare (1 source) care home (current) use of aspirin; Translations: [PRODUCE WEIGHER CURRENT USE OF ASPIRIN] Onset: 2 Episodic Other aftercare (1 source) Other terminal clerk (current) drug therapy; Translations: [OTH PRODUCE WEIGHER CURRENT DRUG THERAPY] Onset: 2 Episodic Other [...] or concerning lesions Assessment/Plan 1. CAD in [place] artery (I25.10: Atherosclerotic heart disease of [place] coronary artery without angina pectoris) I would like to obtain a prior cath/PCI report from 2018 from [facility]. For now, we will continue DAPT. [...] 35% with grade 2 mitral regurgitation. Normal [facility] Comment [...] MD Normal Not Available Addendum Noteon 01-02-2024 [employer] Station Operator Chief Authentication Interface Message Text Addended by: JOHN COLLIER on: 01/02/2024 09:47 AM Modules accepted: Orders Normal The [facility] Addendum Noteon 12-29-2023 [employer] Station Operator Chief Authentication Interface Message Text Addended by: JOHN COLLIER on: 12/29/2023 12:25 PM Modules accepted: Orders Normal [facility] Office Visit (Cardiology)on 2022 Follow-up visit Diagnoses/Problems Assessed Atherosclerosis of coronary artery of [place] heart without angina pectoris (414.01) (I25.10) Essential [...] (Z01.810) Orders Atherosclerosis of coronary artery of [place] heart without angina pectoris Renew: Atorvastatin Calcium 80 MG Oral Tablet; TAKE 1 TABLET BY MOUTH EVERYDAY AT BEDTIME Renew: Carvedilol 6.25 MG Oral Tablet; take 1 tablet by mouth twice a day Renew: Clopidogrel Bisulfate 75 MG Oral Tablet; TAKE 1 TABLET BY MOUTH EVERY DAY Atherosclerosis of coronary artery of [place] heart without angina pectoris, Preoperative cardiovascular examination [...] we can help. You may also call [phone] for free resources and assistance.; Status:Complete - [...] lexiscan stress test. Colostomy reversal with Dr. [facility], Fax: [phone] Follow up in 9-12 months Chief Complaint [...] Screening.on 023 Adult depression screening assessment No [facility] 250 DO Work Phone: Tobacco use status [facility] b) No [facility] 250 DO Work Phone: CBC AUTO DIFFon 07-23-2022 BASO # 0.0 103/ul Normal 0.0-0.1 [facility] Comment on above: Performed By: #### C MREP #### [facility] [address] [place] [address] Dr. Wilda Patel Basophils/100 WBC (Bld) 0.5 % Normal 0.2-2.0 [facility] Comment on above: Performed By: #### C MREP #### [facility] [address] [place] [address] Dr. Wilda Patel EO # 0.1 103/ul Normal 0.0-0.7 [facility] Comment on above: Performed By: #### C MREP #### [facility] [address] [place] [address] Dr. Wilda Patel Eosinophils/100 WBC (Bld) 0.8 % Critically low 0.9-7.0 [facility] Comment on above: Performed By: #### C MREP #### [facility] [address] [place] [address] Dr. Wilda Patel Erythrocyte distribution width (RBC) [Ratio] 12.3 % Normal 11.0-15.0 [facility] Comment on above: Performed By: #### C MREP #### [facility] [address] [place] [address] Dr. Wilda Patel Hematocrit (Bld) [Volume fraction] 41.9 % Critically low 42.0-54.0 [facility] Comment on above: Performed By: #### C MREP #### [facility] [address] [place] [address] Dr. Wilda Patel Hemoglobin (Bld) [Mass/Vol] 14.6 g/dL Normal 14.0-18.0 [facility] Comment on above: Performed By: #### C MREP #### [facility] [address] [address] [address] Wilda Patel IG # 0.03 10e3/ul Normal 0.00-0.03 [facility] Comment on above: Performed By: #### C MREP #### [facility] [address] [address] [address] Wilda Patel IG % 0.5 % Normal 0.0-0.5 [facility] Comment on above: Performed By: #### C MREP #### [facility] [address] [address] [address] Wilda Patel LYMPH # 1.7 103/ul Normal 1.2-3.8 [facility] Comment on above: Performed By: #### C MREP #### [facility] [address] [place] [address] Dr. Wilda Patel Lymphocytes/100 WBC (Bld) 26.2 % Normal 20.5-60.0 [facility] Comment on above: Performed By: #### C MREP #### [facility] [address] [address] [address] Wilda Patel MANUAL DIFF REQ NO Normal [facility] Comment on above: Performed By: #### C MREP #### [facility] [address] [place] [address] Dr. Wilda Patel MCH (RBC) [Entitic mass] 32.9 pg Normal 25.9-34.0 [facility] Comment on above: Performed By: #### C MREP #### [facility] [address] [place] [address] Dr. Wilda Patel MCHC (RBC) [Mass/Vol] 34.8 g/dL Normal 29.9-35.2 [facility] Comment on above: Performed By: #### C MREP #### [facility] [address] [place] [address] Dr. Wilda Patel MCV (RBC) [Entitic vol] 94.4 fL Critically high 80.0-94.0 [facility] Comment on above: Performed By: #### C MREP #### [facility] [address] [address] [address] Wilda Patel MONO # 0.6 103/ul Normal 0.3-0.8 [facility] Comment on above: Performed By: #### C MREP #### [facility] [address] [address] [address] Wilda Patel Monocytes/100 WBC (Bld) 9.1 % Normal 1.7-12.0 [facility] Comment on above: Performed By: #### C MREP #### [facility] [address] [address] [address] Wilda Patel NEUT # 4.1 103/ul Normal 1.4-6.5 [facility] Comment on above: Performed By: #### C MREP #### [facility] [address] [address] [address] Wilda Patel Neutrophils/100 WBC (Bld) 62.9 % Normal 43.0-75.0 [facility] Comment on above: Performed By: #### C MREP #### [facility] [address] [address] [address] Wilda Patel Platelet mean volume (Bld) [Entitic vol] 10.0 fL Normal 9.5-13.5 [facility] Comment on above: Performed By: #### C MREP #### [facility] [address] [address] [address] Wilda Patel PLT 182 103/ul Normal 150-450 [facility] Comment on above: Performed By: #### C MREP #### [facility] [address] [address] [address] Wilda Patel RBC 4.44 106/ul Critically low 4.70-6.10 [facility] Comment on above: Performed By: #### C MREP #### [facility] [address] [address] [address] Wilda Paetl WBC 6.5 103/ul Normal 4.0-11.0 [facility] Comment on above: Performed By: #### C MREP #### [facility] [address] [place] [address] Dr. Wilda Patel MAGNESIUMon 07-23-2022 Magnesium [Mass/Vol] 2.4 mg/dL Normal 1.8-2.4 [facility] Comment on above: Performed By: #### C MREP #### [facility] [address] [place] [address] Dr. Wilda Patel PROF CHEM 8 (BAS METB)on Anion gap [Moles/Vol] 12.8 mmol/L Normal [facility] Comment on above: Performed By: #### C MREP #### [facility] [address] [place] [address] Dr. Wilda Patel Calcium [Mass/Vol] 8.3 mg/dL Critically low 8.5-10.1 [facility] Comment on above: Performed By: #### C MREP #### [facility] [address] [place] [address] Dr. Wilda Patel Chloride [Moles/Vol] 97 mmol/L Critically low 98-107 [facility] Comment on above: Performed By: #### C MREP #### [facility] [address] [place] [address] Dr. Wilda Patel CO2 [Moles/Vol] 24.5 mmol/L Normal 21.0-32.0 [facility] Comment on above: Performed By: #### C MREP #### [facility] [address] [place] [address] Dr. Wilda Patel Creatinine [Mass/Vol] 0.76 mg/dL Normal 0.70-1.30 [facility] Comment on above: Performed By: #### C MREP #### [facility] [address] [place] [address] Dr. Wilda Patel EGFR-AF CITIZEN OF [place] >60 Normal >=60 [facility] Comment on above: Performed By: #### C MREP #### [facility] [address] [place] [address] Dr. Wilda Patel EGFR-NON AF CITIZEN OF [place] >60 Normal >=60 [facility] Comment on above: Performed By: #### C MREP #### [facility] [address] [address] [address] Wilda Patel Glucose [Mass/Vol] 98 mg/dL Normal 74-106 [facility] Comment on above: Performed By: #### C MREP #### [facility] [address] [address] [address] Wilda Patel Potassium [Moles/Vol] 3.3 mmol/L Critically low 3.5-5.1 [facility] Comment on above: Performed By: #### C MREP #### [facility] [address] [address] [address] Wilda Patel Sodium [Moles/Vol] 131 mmol/L Critically low 136-145 [facility] Comment on above: Performed By: #### C MREP #### [facility] [address] [address] [address] Wilda Patel Urea nitrogen [Mass/Vol] 10.0 mg/dL Normal 7.0-18.0 [facility] Comment on above: Performed By: #### C MREP #### [facility] [address] [address] [address] Wilda Patel Urea nitrogen/Creatinine [Mass ratio] 13.2 mg/mg Normal [facility] Comment on above: Performed By: #### C MREP #### [facility] [address] [address] [address] Wilda Patel CARDIAC KEON 3-6on 2 CK [Catalytic activity/Vol] 108 U/L Normal 39-308 [facility] Comment on above: Performed By: #### E RUR #### [facility] [address] [address] [address] Wilda Patel CK.MB [Mass/Vol] 2.69 ng/mL Normal <=3.60 [facility] Comment on above: Performed By: #### E RUR #### [facility] [address] [address] [address] Wilda Patel HSTROP 29.0 pg/mL Normal 4.0-76.1 [facility] Comment on above: Result Comment: CUT- OFF POINTS HAVE BEEN ESTABLISHED BASED ON THE FOURTH UNIVERSAL DEFINITIONS OF MYOCARDIAL INFARCTION. THE UPPER REFERENCE LIMIT (URL) OF TROPONIN, DEFINED THE 99TH PERCENTILE OF cTnI DISTRIBUTION IN A REFERENCE POPULATION, HAS BEEN CONFIRMED THE DECISION THRESHOLD FOR RI DIAGNOSIS. Performed By: #### E RUR #### [facility] [address] [place] [address] Dr. Wilda Patel CK [Catalytic activity/Vol] 114 U/L Normal 39-308 [facility] Comment on above: Performed By: #### C MREP #### [facility] [address] [place] [address] Dr. Wilda Patel CK.MB [Mass/Vol] 2.60 ng/mL Normal <=3.60 [facility] Comment on above: Performed By: #### C MREP #### [facility] [address] [place] [address] Dr. Wilda Patel HSTROP 26.7 pg/mL Normal 4.0-76.1 [facility] Comment on above: Result Comment: CUT- OFF POINTS HAVE BEEN ESTABLISHED BASED ON THE FOURTH UNIVERSAL DEFINITIONS OF MYOCARDIAL INFARCTION. THE UPPER REFERENCE LIMIT (URL) OF TROPONIN, DEFINED THE 99TH PERCENTILE OF cTnI DISTRIBUTION IN A REFERENCE POPULATION, HAS BEEN CONFIRMED THE DECISION THRESHOLD FOR RI DIAGNOSIS. Performed By: #### C MREP #### [facility] [address] [place] [address] Dr. Wilda Patel CBC AUTO DIFFon 07-22-2022 BASO # 0.0 103/ul Normal 0.0-0.1 [facility] Comment on above: Performed By: #### E RUR #### [facility] [address] [place] [address] Dr. Wilda Patel Basophils/100 WBC (Bld) 0.5 % Normal 0.2-2.0 [facility] Comment on above: Performed By: #### E RUR #### [facility] [address] [place] [address] Dr. Wilda Patel EO # 0.0 103/ul Normal 0.0-0.7 [facility] Comment on above: Performed By: #### E RUR #### [facility] [address] [place] [address] Dr. Wilda Patel Eosinophils/100 WBC (Bld) 0.1 % Critically low 0.9-7.0 [facility] Comment on above: Performed By: #### E RUR #### [facility] [address] [place] [address] Dr. Wilda Patel Erythrocyte distribution width (RBC) [Ratio] 12.4 % Normal 11.0-15.0 [facility] Comment on above: Performed By: #### E RUR #### [facility] [address] [place] [address] Dr. Wilda Patel Hematocrit (Bld) [Volume fraction] 42.3 % Normal 42.0-54.0 [facility] Comment on above: Performed By: #### E RUR #### [facility] [address] [place] [address] Dr. Wilda Patel Hemoglobin (Bld) [Mass/Vol] 15.0 g/dL Normal 14.0-18.0 [facility] Comment on above: Performed By: #### E RUR #### [facility] [address] [place] [address] Dr. Wilda Patel IG # 0.01 10e3/ul Normal 0.00-0.03 [facility] Comment on above: Performed By: #### E RUR #### [facility] [address] [place] [address] Dr. Wilda Patel IG % 0.1 % Normal 0.0-0.5 [facility] Comment on above: Performed By: #### E RUR #### [facility] [address] [place] [address] Dr. Wilda Patel LYMPH # 1.7 103/ul Normal 1.2-3.8 [facility] Comment on above: Performed By: #### E RUR #### [facility] [address] [place] [address] Dr. Wilda Patel Lymphocytes/100 WBC (Bld) 22.2 % Normal 20.5-60.0 [facility] Comment on above: Performed By: #### E RUR #### [facility] [address] [place] [address] Dr. Wilda Patel MANUAL DIFF REQ NO Normal [facility] Comment on above: Performed By: #### E RUR #### [facility] [address] [place] [address] Dr. Wilda Patel MCH (RBC) [Entitic mass] 33.1 pg Normal 25.9-34.0 [facility] Comment on above: Performed By: #### E RUR #### [facility] [address] [place] [address] Dr. Wilda Patel MCHC (RBC) [Mass/Vol] 35.5 g/dL Critically high 29.9-35.2 [facility] Comment on above: Performed By: #### E RUR #### [facility] [address] [place] [address] Dr. Wilda Patel MCV (RBC) [Entitic vol] 93.4 fL Normal 80.0-94.0 [facility] Comment on above: Performed By: #### E RUR #### [facility] [address] [place] [address] Dr. Wilda Patel MONO # 0.7 103/ul Normal 0.3-0.8 [facility] Comment on above: Performed By: #### E RUR #### [facility] [address] [place] [address] Dr. Wilda Patel Monocytes/100 WBC (Bld) 9.7 % Normal 1.7-12.0 [facility] Comment on above: Performed By: #### E RUR #### [facility] [address] [place] [address] Dr. Wilda Patel NEUT # 5.2 103/ul Normal 1.4-6.5 [facility] Comment on above: Performed By: #### E RUR #### [facility] [address] [place] [address] Dr. Wilda Patel Neutrophils/100 WBC (Bld) 67.4 % Normal 43.0-75.0 [facility] Comment on above: Performed By: #### E RUR #### [facility] [address] [address] [address] Wilda Patel Platelet mean volume (Bld) [Entitic vol] 9.4 fL Critically low 9.5-13.5 [facility] Comment on above: Performed By: #### E RUR #### [facility] [address] [address] [address] Wilda Patel PLT 171 103/ul Normal 150-450 [facility] Comment on above: Performed By: #### E RUR #### [facility] [address] [address] [address] Wilda Patel RBC 4.53 106/ul Critically low 4.70-6.10 [facility] Comment on above: Performed By: #### E RUR #### [facility] [address] [address] [address] Wilda Patel WBC 7.7 103/ul Normal 4.0-11.0 [facility] Comment on above: Performed By: #### E RUR #### [facility] [address] [address] [address] STROKE HEAD WOon [...] SUREKHA QUESADA Date: 2022-07-21 22:22 Normal [facility] CTA NECK WO W CONon 07-22-20 22 [...] TRACIFeliz THACKER Date: 2022-07-22 01:01 Normal [facility] Covid-19 PCR (CVDTBH)on 06-26 SARS-CoV-2 (COVID-19) RNA SHREYA+probe Ql (Unsp spec) Not detected Normal NOT DETECTED [facility] Comment on above: Result Comment: When diagnostic [...] for this test is supported by the [employer] Operator of Health and Human Service's declaration that [...] used). Performed By: #### L ACT #### [facility] [address] [place] [address] Dr. Wilda Patel ECHOCARDIO M/2D COMPLETEon 1 09-22-2021 ECHOCARDIO M/2D COMPLETE Patient: ELICEO KENNY Exam Date: 07/22/2022 : 1965 Gender:M Ordering : SHAIKH Mirtha JEAN . Admission #: [id number] Family : DR AARON OCAMPO M.D. Order #: [id number] CLICK HERE TO VIEW EXAM ECHOCARDIOGRAM REPORT [...] Jin M.D. on 07/28/2022 at 10:00 Normal [facility] LIPID PROFILEon 07-22-2022 CHOL-HDL RATIO NORM SEE BELOW Normal [facility] Comment on above: Result Comment: 3.3 - 4.4 LOW RISK 4.4 - 7.1 AVERAGE RISK 7.1 - 11.0 MODERATE RISK >11.0 HIGH RISK Performed By: #### C MREP #### [facility] [address] [place] [address] Dr. Wilda Patel Cholesterol [Mass/Vol] 180 mg/dL Normal <=200 [facility] Comment on above: Performed By: #### C MREP #### [facility] [address] [address] [address] Wilda Patel Cholesterol in HDL [Mass/Vol] 59 mg/dL Normal 40-60 [facility] Comment on above: Performed By: #### C MREP #### [facility] [address] [address] [address] Wilda Patel Cholesterol in LDL [Mass/Vol] 74.4 mg/dL Normal [facility] Comment on above: Performed By: #### C MREP #### [facility] [address] [address] [address] Wilda Patel Cholesterol.total/Chol esterol in HDL [Mass ratio] 3.1 {ratio} Normal [facility] Comment on above: Performed By: #### C MREP #### [facility] [address] [place] [address] Dr. Wilda Patel HDL NORMAL > or = 60 mg/dl - LO W CARDIOVASCULAR RISK <40 mg/dl - HIGH CARDIOVASCULAR RISK Normal [facility] Comment on above: Performed By: #### C MREP #### [facility] [address] [place] [address] Dr. Wilda Patel LDL CALC NORMAL SEE BELOW Normal [facility] Comment on above: Result Comment: <100 mg/dl OPTIMAL 100 - 129 mg/dl NEAR OR ABOVE OPTIMAL 130 - 159 mg/dl BORDERLINE HIGH 160 - 189 mg/dl HIGH >190 mg/dl VERY HIGH Performed By: #### C MREP #### [facility] [address] [place], [place] [address] Dr. Wilda Patel Triglyceride [Mass/Vol] 233 mg/dL Critically high <=150 [facility] Comment on above: Performed By: #### C MREP #### [facility] [address] [place], [place] [address] Dr. Wilda Patel VLDL CALC 46.6 mg/dL Normal [facility] Comment on above: Performed By: #### C MREP #### [facility] [address] [place] [address] [id number] [address] Wilda Patel MAGNESIUMon 07-22-2022 Magnesium [Mass/Vol] 2.3 mg/dL Normal 1.8-2.4 [facility] Comment on above: Performed By: #### B MP, MG #### [facility] [address] [place] [address] Dr. Wilda Patel MRI BRAIN WO CONon [...] CAROLYN REDDY Date: 2022-07-22 15:28 Normal [facility] PROF CHEM 8 (BAS METB)on Anion gap [Moles/Vol] 16.0 mmol/L Normal Th [facility] Comment on above: Performed By: #### B MP, MG #### [facility] [address] [place] [address] Dr. Wilda Patel Calcium [Mass/Vol] 8.3 mg/dL Critically low 8.5-10.1 Th [facility] Comment on above: Performed By: #### B MP, MG #### [facility] [address] [place] [address] Dr. Wilda Patel Chloride [Moles/Vol] 100 mmol/L Normal 98-107 [facility] Comment on above: Performed By: #### B MP, MG #### [facility] [address] [place] [address] Dr. Wilda Patel CO2 [Moles/Vol] 21.3 mmol/L Normal 21.0-32.0 [facility] Comment on above: Performed By: #### B MP, MG #### [facility] [address] [place] [address] Dr. Wilda Patel Creatinine [Mass/Vol] 0.70 mg/dL Normal 0.70-1.30 [facility] Comment on above: Performed By: #### B MP, MG #### [facility] [address] [place] [address] Dr. Wilda Patel EGFR-AF CITIZEN [place] >60 Normal >=60 [facility] Comment on above: Performed By: #### B MP, MG #### [facility] [address] [place] [address] Dr. Wilda Patel EGFR-NON AF CITIZEN OF [place] >60 Normal >=60 [facility] Comment on above: Performed By: #### B MP, MG #### [facility] [address] [place] [address] Dr. Wilda Patel Glucose [Mass/Vol] 92 mg/dL Normal 74-106 [facility] Comment on above: Performed By: #### B MP, MG #### [facility] [address] [place] [address] Dr. Wilda Patel Potassium [Moles/Vol] 3.3 mmol/L Critically low 3.5-5.1 [facility] Comment on above: Performed By: #### B MP, MG #### [facility] [address] [place] [address] Dr. Wilda Patel Sodium [Moles/Vol] 134 mmol/L Critically low 136-145 Th [facility] Comment on above: Performed By: #### B MP, MG #### [facility] [address] [place] [address] Dr. Wilda Patel Urea nitrogen [Mass/Vol] 12.0 mg/dL Normal 7.0-18.0 [facility] Comment on above: Performed By: #### B MP, MG #### [facility] [address] [place] [address] Dr. Wilda Patel Urea nitrogen/Creatinine [Mass ratio] 17.1 mg/mg Normal [facility] Comment on above: Performed By: #### B MP, MG #### [facility] [address] [place] [address] Dr. Wilda Patel TSHon 07-22-2022 TSH 33.049 uIU/mL Critically high 0.358-3.740 [facility] Comment on above: Performed By: #### L IPID, TSH #### [facility] [address] [place] [address] Dr. Wilda Patel XR CHEST 1 Von [...] by: CAROLYN TRACY Date: 2022-07-21 22:18 Normal [facility] XR FOREIGN BODY EYEon 2021 XR FOREIGN BODY EYE EXAMINATION: XR FOREIGN BODY EYE HISTORY: Foreign body in eye COMPARISON: No relevant comparison available. FINDINGS: ORBITS: Negative for a metallic foreign body. OTHER: Negative. IMPRESSION: No metallic foreign body in the orbits Electronically authenticated by: CAROLYN REDDY Date: 2022-07-22 12:09 Normal [facility] CARDIAC KEON ADMITon 022 CK [Catalytic activity/Vol] 123 U/L Normal 39-308 [facility] Comment on above: Performed By: #### C MREP #### [facility] [address] [address] [address] Wilda Patel CK.MB [Mass/Vol] 3.11 ng/mL Normal <=3.60 [facility] Comment on above: Performed By: #### C MREP #### [facility] [address] [address] [address] Wilda Patel HSTROP 23.3 pg/mL Normal 4.0-76.1 [facility] Comment on above: Result Comment: CUT- OFF POINTS HAVE BEEN ESTABLISHED BASED ON THE FOURTH UNIVERSAL DEFINITIONS OF MYOCARDIAL INFARCTION. THE UPPER REFERENCE LIMIT (URL) OF TROPONIN, DEFINED THE 99TH PERCENTILE OF cTnI DISTRIBUTION IN A REFERENCE POPULATION, HAS BEEN CONFIRMED THE DECISION THRESHOLD FOR RI DIAGNOSIS. Performed By: #### C MREP #### [facility] [address] [address] [address] Wilda Patel TRENA 136 ng/mL Critically high 16-96 [facility] Comment on above: Performed By: #### C MREP #### [facility] [address] [address] [address] Wilda Patel CBC AUTO DIFFon 07-21-2022 BASO # 0.0 103/ul Normal 0.0-0.1 [facility] Comment on above: Performed By: #### E RUR #### [facility] [address] [place] [address] Dr. Wilda Patel Basophils/100 WBC (Bld) 0.3 % Normal 0.2-2.0 [facility] Comment on above: Performed By: #### E RUR #### [facility] [address] [place] [address] Dr. Wilda Patel EO # 0.0 103/ul Normal 0.0-0.7 [facility] Comment on above: Performed By: #### E RUR #### [facility] [address] [place] [address] Dr. Wilda Patel Eosinophils/100 WBC (Bld) 0.1 % Critically low 0.9-7.0 [facility] Comment on above: Performed By: #### E RUR #### [facility] [address] [place] [address] Dr. Wilda Patel Erythrocyte distribution width (RBC) [Ratio] 12.3 % Normal 11.0-15.0 [facility] Comment on above: Performed By: #### E RUR #### [facility] [address] [place] [address] Dr. Wilda Patel Hematocrit (Bld) [Volume fraction] 47.4 % Normal 42.0-54.0 [facility] Comment on above: Performed By: #### E RUR #### [facility] [address] [place] [address] Dr. Wilda Patel Hemoglobin (Bld) [Mass/Vol] 16.8 g/dL Normal 14.0-18.0 [facility] Comment on above: Performed By: #### E RUR #### [facility] [address] [place] [address] Dr. Wilda Patel IG # 0.04 10e3/ul Critically high 0.00-0.03 [facility] Comment on above: Performed By: #### E RUR #### [facility] [address] [place] [address] Dr. Wilda Patel IG % 0.4 % Normal 0.0-0.5 [facility] Comment on above: Performed By: #### E RUR #### [facility] [address] [place] [address] Dr. Wilda Patel LYMPH # 1.6 103/ul Normal 1.2-3.8 [facility] Comment on above: Performed By: #### E RUR #### [facility] [address] [place] [address] Dr. Wilda Patel Lymphocytes/100 WBC (Bld) 15.7 % Critically low 20.5-60.0 [facility] Comment on above: Performed By: #### E RUR #### [facility] [address] [address] [address] Wilda Patel MANUAL DIFF REQ NO Normal [facility] Comment on above: Performed By: #### E RUR #### [facility] [address] [place] [address] Dr. Wilda Patel MCH (RBC) [Entitic mass] 32.9 pg Normal 25.9-34.0 [facility] Comment on above: Performed By: #### E RUR #### [facility] [address] [address] [address] Wilda Patel MCHC (RBC) [Mass/Vol] 35.4 g/dL Critically high 29.9-35.2 [facility] Comment on above: Performed By: #### E RUR #### [facility] [address] [place] [address] Dr. Wilda Patel MCV (RBC) [Entitic vol] 92.9 fL Normal 80.0-94.0 [facility] Comment on above: Performed By: #### E RUR #### [facility] [address] [place] [address] Dr. Wilda Patel MONO # 0.9 103/ul Critically high 0.3-0.8 [facility] Comment on above: Performed By: #### E RUR #### [facility] [address] [place] [address] Dr. Wilda Patel Monocytes/100 WBC (Bld) 9.3 % Normal 1.7-12.0 [facility] Comment on above: Performed By: #### E RUR #### [facility] [address] [place] [address] Dr. Wilda Patel NEUT # 7.4 103/ul Critically high 1.4-6.5 [facility] Comment on above: Performed By: #### E RUR #### [facility] [address] [place] [address] Dr. Wilda Patel Neutrophils/100 WBC (Bld) 74.2 % Normal 43.0-75.0 [facility] Comment on above: Performed By: #### E RUR #### [facility] [address] [address] [address] Wilda Patel Platelet mean volume (Bld) [Entitic vol] 9.6 fL Normal 9.5-13.5 [facility] Comment on above: Performed By: #### E RUR #### [facility] [address] [address] [address] Wilda Patel PLT 216 103/ul Normal 150-450 [facility] Comment on above: Performed By: #### E RUR #### [facility] [address] [place] [address] Dr. Wilda Patel RBC 5.10 106/ul Normal 4.70-6.10 [facility] Comment on above: Performed By: #### E RUR #### [facility] [address] [place] [address] Dr. Wilda Patel WBC 9.9 103/ul Normal 4.0-11.0 [facility] Comment on above: Performed By: #### E RUR #### [facility] [address] [place] [address] Dr. Wilda Patel POINT OF CARE GLUCOSEon 06-26 Glucose [Mass/Vol] 113 mg/dL Critically high 74-106 [facility] Comment on above: Performed By: #### E RUR #### [facility] [address] [place] [address] Dr. Wilda Patel PROF 14(COMP METB)on 022 Albumin [Mass/Vol] 3.9 g/dL Normal 3.4-5.0 [facility] Comment on above: Performed By: #### C MREP #### [facility] [address] [place] [address] Dr. Wilda Patel Albumin/Globulin [Mass ratio] 1.0 {ratio} Normal [facility] Comment on above: Performed By: #### C MREP #### [facility] [address] [place] [address] Dr. Wilda Patel ALP [Catalytic activity/Vol] 137 U/L Critically high 46-116 [facility] Comment on above: Performed By: #### C MREP #### [facility] [address] [address] [address] Wilda Patel ALT [Catalytic activity/Vol] 16 U/L Normal 16-63 [facility] Comment on above: Performed By: #### C MREP #### [facility] [address] [address] [address] Wilda Patel Anion gap [Moles/Vol] 16.7 mmol/L Normal Th [facility] Comment on above: Performed By: #### C MREP #### [facility] [address] [address] [address] Wilda Patel AST [Catalytic activity/Vol] 18 U/L Normal 15-37 [facility] Comment on above: Performed By: #### C MREP #### [facility] [address] [address] [address] Wilda Patel Bilirubin [Mass/Vol] 2.1 mg/dL Critically high 0.2-1.0 [facility] Comment on above: Performed By: #### C MREP #### [facility] [address] [address] [address] Wilda Patel Calcium [Mass/Vol] 9.2 mg/dL Normal 8.5-10.1 [facility] Comment on above: Performed By: #### C MREP #### [facility] [address] [address] [address] Wilda Patel Chloride [Moles/Vol] 96 mmol/L Critically low 98-107 [facility] Comment on above: Performed By: #### C MREP #### [facility] [address] [address] [address] Wilda Patel CO2 [Moles/Vol] 23.8 mmol/L Normal 21.0-32.0 [facility] Comment on above: Performed By: #### C MREP #### [facility] [address] [address] [address] Wilda Patel Creatinine [Mass/Vol] 0.92 mg/dL Normal 0.70-1.30 [facility] Comment on above: Performed By: #### C MREP #### [facility] [address] [address] [address] Wilda Patel EGFR-AF [place]IZ[place] >60 Normal >=60 [facility] Comment on above: Performed By: #### C MREP #### [facility] [address] [address] [address] Wilda Patel EGFR-NON AF [place]IZ[place] >60 Normal >=60 [facility] Comment on above: Performed By: #### C MREP #### [facility] [address] [address] [address] Wilda Patel Globulin (S) [Mass/Vol] 4.0 g/dL Normal [facility] Comment on above: Performed By: #### C MREP #### [facility] [address] [place] [address] Dr. Wilda Patel Glucose [Mass/Vol] 112 mg/dL Critically high 74-106 [facility] Comment on above: Performed By: #### C MREP #### [facility] [address] [address] [address] Wilda Patel Potassium [Moles/Vol] 3.5 mmol/L Normal 3.5-5.1 [facility] Comment on above: Performed By: #### C MREP #### [facility] [address] [place] [address] Dr. Wilda Patel Protein [Mass/Vol] 7.9 g/dL Normal 6.4-8.2 [facility] Comment on above: Performed By: #### C MREP #### [facility] [address] [place] [address] Dr. Wilda Patel Sodium [Moles/Vol] 133 mmol/L Critically low 136-145 [facility] Comment on above: Performed By: #### C MREP #### [facility] [address] [address] [address] Wilda Patel Urea nitrogen [Mass/Vol] 15.0 mg/dL Normal 7.0-18.0 [facility] Comment on above: Performed By: #### C MREP #### [facility] [address] [address] [address] Wilda Patel Urea nitrogen/Creatinine [Mass ratio] 16.3 mg/mg Normal [facility] Comment on above: Performed By: #### C MREP #### [facility] [address] [place] [address] Dr. Wilda Patel PROTIMEon 07-21-2022 INR Coag (PPP) [Relative time] 1.00 {INR} Normal [facility] Comment on above: Performed By: #### P TT, PT #### [facility] [address] [place] [address] Dr. Wilda Patel INR GUIDELINES SEE BELOW [facility] Comment on above: Result Comment: BREA RED INR: 2.0 - 3.0 CONDITIONS NOT LISTED BELOW 2.5 - 3.5 FOR PROSTHETIC HEART VALVE REPLACEMENT 2.5 - 3.5 RECURRENT THROMBOSIS Performed By: #### P TT, PT #### [facility] [address] [place] [address] Dr. Wilda Patel PT Coag (PPP) [Time] 10.8 s Normal 9.0-11.6 [facility] Comment on above: Performed By: #### P TT, PT #### [facility] [address] [place] [address] Dr. Wilda Patel PTTon 07-21-2022 aPTT Coag (Bld) [Time] 28.8 s Normal 22.3-36.2 [facility] Comment on above: Performed By: #### P TT, PT #### [facility] [address] [place] [address] Dr. Wilda Patel Free T4 (Free Thyroxine)on 08-08-2021 Free T4 [Mass/Vol] 0.60 ng/dL Low 0.61-1.12 [facility] Comment on above: Performed By: #### V [id number], TSH3 wRFLX, T4F #### [facility] [address] No Panel InformationOrdered By: Medhat Baltazar on 06-08-2022 25-Hydroxy Vitamin D Total 8.1 ng/mL 30-100 Comment on above: VITAMIN D STATUS 25( OH)VITAMIN D RANGE (ng/mL) Deficient <20 Insufficient 20 to <30Sufficient 30 to 100Reference: Franklyn Joseph, Isaac FRANCES et al. Evaluation,treatment, and prevention of vitamin D deficiency; an Endocrine Society clinical practice guideline. JCEM. 2010; 96(7):191-. TSH DL <= 0.005 mIU/L QnOrde red By: Medhat Baltazar on 06-08-2022 TSH Qn 28.54 m[IU]/L 0.45-5.33 Thyroid Stim Hormone w/Rflxo n 06-08-2022 Thyroid Stim Hormone w/Rflx 28.54 u[iU]/mL High 0.45-5.33 Comment on above: Performed By: #### L IPID, TSH3 wRFLX, CBC, [id number], T4F, CMP, [id number], LDLD, A1C WTH eA #### [facility] [address] Thyroxine (T4) free [Mass/vo lume] in Serum or PlasmaOrdered By: Medhat Baltazar on 06-08-2022 Free T4 [Mass/Vol] 0.60 ng/dL 0.61-1.12 [facility] Vitamin D 25 Hydroxy Totalon 06-08-2022 Vitamin D 25 Hydroxy Total 8.1 ng/mL Low 30-100 Comment on above: Result Comment: MAIRA MIN D STATUS 25(OH)VITAMIN D RANGE (ng/mL) Deficient <20 Insufficient 20 to <30 Sufficient 30 to 100 Reference: Franklyn Joseph, Isaac FRANCES, et al. Evaluation,treatment, and prevention of vitamin D deficiency; an Endocrine Society clinical practice guideline. JCEM. 2010; 96(7):1911-. PERFORMED BY: [facility] [address] [place] [address] PATHOLOGIST HELPER DRIVER MARCO ANTONIO FINLEY M.D. Performed By: #### L IPID, TSH3 wRFLX, CBC, [id number], T4F, CMP, [id number], LDLD, A1C [facility] eA #### [facility] [address] MUGA SCAN INJECTIONon [facility] MUGA SCAN INJECTION Patient Name: ELICEO KENNY STUDY: MUGA Performing facility: [facility], [address] [place] [address], [address], [address] Provider: Darlin Ocampo MD, [facility] PCP: Dr. Kelley Supervising provider: Ben Meyers MD INDICATION: Encounter for ICD HISTORY: Gender: M; Age: 56 y/o ; Height: 167.64 cm; Weight: 97.8781049 kg. CAD; High Cholesterol; Previous RI; HTN; COPD; Ischemic cardiomyopathy Currently smoking. Cardiac catheterization on 2018. PTCA on 2018. COMPARISON: Previous nuclear testing completed [id number] Muga at [facility]. ACCESSION NUMBER(S): [id number]; [id number] ORDERING CLINICIAN: AARON OCAMPO TECHNIQUE: The patient [...] was abnormal. Global resting LVEF was globally [id number] at %. IMPRESSION: Mild resting right ventricular hypokinesis Abnormalresting left ventricular function. Left ventricular ejection fraction is 35%. No change when compared to prior study Electronically signed by: BEN MEYERS MD Normal [facility] [place] No Panel Informationon 05-06 Normal [address] [address] DO Work Phone: A1C with Estimated Average G boris 03-12-2022 Glucose [Mass/Vol] 111 mg/dL Normal [facility] Comment on above: Result Comment: PERF ORMED BY: [facility] [address] [facility] [place] [address] PATHOLOGIST HELPER DRIVER MARCO ANTONIO FINLEY M.D. Performed By: #### L IPID, TSH3 wRFLX, CBC, [id number], T4F, CMP, [id number], LDLD, A1C WTH eA #### [facility] [address] HbA1c (Bld) [Mass fraction] 5.5 % Normal 4.3-5.6 Comment on above: Result Comment: Incr eased risk for diabetes: 5.7 - 6.4 diabetes: >6.4 glycemic control for adults with diabetes: <7.0 Performed By: #### L IPID, TSH3 wRFLX, CBC, [id number], T4F, CMP, [id number], LDLD, A1C WTH eA #### [address] Basophils Auto (Bld) [#/Vol] Ordered By: Medhat Baltazar on 03-12-2022 Basophils (Bld) [#/Vol] 0.0 10*3/uL 0.0-0.2 Basophils/100 WBC Auto (Bld) Ordered By: Medhat Baltazar on 03-12-2022 Basophils/100 WBC (Bld) 0.6 % . Blood hemoglobin measurement (mass/volume)Ordered By: Medhat Baltazar on 03-12-2022 Hemoglobin (Bld) [Mass/Vol] 14.8 g/dL 13.0-17.0 Blood leukocytes automated c ount (number/volume)Ordered By: Medhat Baltazar on 03-12-2022 WBC (Bld) [#/Vol] 5.3 10*3/uL 4.5-11.0 [facility] Body fluid albumin measureme nt (mass/volume)Ordered By: Medhat Baltazar on 03-12-2022 Albumin (Body fld) [Mass/Vol] 3.7 g/dL 3.2-5.5 Cholesterol [Mass/volume] in Serum or PlasmaOrdered By: Medhat Baltazar on 03-12-2022 Cholesterol [Mass/Vol] 157 mg/dL 140-200 [facility] Comment on above: Chol less than 200 m g/dl low risk Chol 201-239 mg/dl borderline risk Chol 240 mg/dl and greater high risk Chol less than 200 m g/dl low riskChol 201-239 mg/dl borderline riskChol 240 mg/dl and greater high risk Cholesterol in LDL Calc [Mas s/Vol]Ordered By: Medhat Baltazar on 03-12-2022 Cholesterol in LDL [Mass/Vol] 42 mg/dL 0-100 Comment on above: LDL ATP III CLASSIFI [...] 03-12-2022 Cholesterol in VLDL [Mass/Vol] 48 mg/dL Complete Blood Count Auto Di ffon 03-12-2022 Basophils (Bld) [#/Vol] 0.0 10*3/uL Normal 0.0-0.2 Comment on above: Result Comment: PERF ORMED BY: [place] [address] PATHOLOGIST HELPER DRIVER MARCO ANTONIO FINLEY M.D. Performed By: #### L IPID, TSH3 wRFLX, CBC, [id number], T4F, CMP, [id number], LDLD, A1C WTH eA #### [facility] [address] [place] [address] Basophils/100 WBC (Bld) 0.6 % Normal . Comment on above: Performed By: #### L IPID, TSH3 wRFLX, CBC, [id number], T4F, CMP, [id number], LDLD, A1C WTH eA #### [facility] [address] Eosinophils (Bld) [#/Vol] 0.0 10*3/uL Normal 0.0-0.45 Comment on above: Performed By: #### L IPID, TSH3 wRFLX, CBC, [id number], T4F, CMP, [id number], LDLD, A1C WTH eA #### [place] [address] [place] Eosinophils/100 WBC (Bld) 0.4 % Normal . Comment on above: Performed By: #### L IPID, TSH3 wRFLX, CBC, [id number], T4F, CMP, [id number], LDLD, A1C WTH eA #### [address] Erythrocyte distribution width (RBC) [Ratio] 13.7 % Normal 12.0-14.8 Comment on above: Performed By: #### L IPID, TSH3 wRFLX, CBC, [id number], T4F, CMP, [id number], LDLD, A1C WTH eA #### [address] Hematocrit (Bld) [Volume fraction] 43.7 % Normal 38.8-50.0 Comment on above: Performed By: #### L IPID, TSH3 wRFLX, CBC, [id number], T4F, CMP, [id number], LDLD, A1C WTH eA #### [address] Hemoglobin (Bld) [Mass/Vol] 14.8 g/dL Normal 13.0-17.0 Comment on above: Performed By: #### L IPID, TSH3 wRFLX, CBC, [id number], T4F, CMP, [id number], LDLD, A1C WTH eA #### [address] Lymphocytes (Bld) [#/Vol] 1.6 10*3/uL Normal 1.00-4.8 Comment on above: Performed By: #### L IPID, TSH3 wRFLX, CBC, [id number], T4F, CMP, [id number], LDLD, A1C WTH eA #### [facility] [address] Lymphocytes/100 WBC (Bld) 29.2 % Normal . Comment on above: Performed By: #### L IPID, TSH3 wRFLX, CBC, [id number], T4F, CMP, [id number], LDLD, A1C WTH eA #### [facility] [address] MCH (RBC) [Entitic mass] 34.1 pg Normal 27.5-35.2 Comment on above: Performed By: #### L IPID, TSH3 wRFLX, CBC, [id number], T4F, CMP, [id number], LDLD, A1C WTH eA #### [address] MCV (RBC) [Entitic vol] 101.1 fL High 83.5-101 Comment on above: Performed By: #### L IPID, TSH3 wRFLX, CBC, [id number], T4F, CMP, [id number], LDLD, A1C WTH eA #### [address] Mean Corpuscular HGB Conc 33.8 g/dL Normal 32.5-35.6 Comment on above: Performed By: #### L IPID, TSH3 wRFLX, CBC, [id number], T4F, CMP, [id number], LDLD, A1C WTH eA #### [address] Monocytes (Bld) [#/Vol] 0.4 10*3/uL Normal 0.0-0.8 Comment on above: Performed By: #### L IPID, TSH3 wRFLX, CBC, [id number], T4F, CMP, [id number], LDLD, A1C WTH eA #### [facility] [address] [place] [address] [place] Monocytes/100 WBC (Bld) 7.0 % Normal . Comment on above: Performed By: #### L IPID, TSH3 wRFLX, CBC, [id number], T4F, CMP, [id number], LDLD, A1C WTH eA #### [place] [address] [place] Neutrophils (Bld) [#/Vol] 3.3 10*3/uL Normal 1.8-7.7 Comment on above: Performed By: #### L IPID, TSH3 wRFLX, CBC, [id number], T4F, CMP, [id number], LDLD, A1C WTH eA #### [address] Neutrophils/100 WBC (Bld) 62.8 % Normal . Comment on above: Performed By: #### L IPID, TSH3 wRFLX, CBC, [id number], T4F, CMP, [id number], LDLD, A1C WTH eA #### [place] [address] [place] Nucleated RBC/100 WBC (Bld) [Ratio] 0.1 % Normal 0-0.5 Comment on above: Performed By: #### L IPID, TSH3 wRFLX, CBC, [id number], T4F, CMP, [id number], LDLD, A1C WTH eA #### [place] [address] [place] Platelet mean volume (Bld) [Entitic vol] 8.7 fL Normal 6.6-10.1 Comment on above: Performed By: #### L IPID, TSH3 wRFLX, CBC, [id number], T4F, CMP, [id number], LDLD, A1C WTH eA #### [place] [address] [place] Platelets (Bld) [#/Vol] 218 10*3/uL Normal 150-450 Comment on above: Performed By: #### L IPID, TSH3 wRFLX, CBC, [id number], T4F, CMP, [id number], LDLD, A1C WTH eA #### [facility] [address] [place] [address] [facility] RBC (Bld) [#/Vol] 4.33 10*6/uL Normal 3.90-5.60 [facility] Comment on above: Performed By: #### L IPID, TSH3 wRFLX, CBC, [id number], T4F, CMP, [id number], LDLD, A1C WTH eA #### [facility] [address] WBC (Bld) [#/Vol] 5.3 10*3/uL Normal 4.5-11.0 [facility] Comment on above: Performed By: #### L IPID, TSH3 wRFLX, CBC, [id number], T4F, CMP, [id number], LDLD, A1C WTH eA #### [facility] [address] Comprehensive Metabolic Pane jorge 03-12-2022 Albumin [Mass/Vol] 3.7 g/dL Normal 3.2-5.5 [facility] Comment on above: Performed By: #### L IPID, TSH3 wRFLX, CBC, [id number], T4F, CMP, [id number], LDLD, A1C WTH eA #### [facility] [address] [place] [id number] [facility] Albumin/Globulin [Mass ratio] 1.3 {ratio} Normal Comment on above: Performed By: #### L IPID, TSH3 wRFLX, CBC, [id number], T4F, CMP, [id number], LDLD, A1C WTH eA #### [facility] [address] [place] [id number] [facility] ALP [Catalytic activity/Vol] 87 U/L Normal 32-92 Comment on above: Performed By: #### L IPID, TSH3 wRFLX, CBC, [id number], T4F, CMP, [id number], LDLD, A1C WTH eA #### [facility] [address] [place] [id number] [facility] ALT [Catalytic activity/Vol] 39 U/L Normal 10-60 Comment on above: Performed By: #### L IPID, TSH3 wRFLX, CBC, [id number], T4F, CMP, [id number], LDLD, A1C WTH eA #### [facility] [address] [place] [id number] [facility] AST [Catalytic activity/Vol] 23 U/L Normal 10-42 Comment on above: Performed By: #### L IPID, TSH3 wRFLX, CBC, [id number], T4F, CMP, [id number], LDLD, A1C WTH eA #### [address] Bilirubin [Mass/Vol] 1.5 mg/dL High 0.3-1.2 [facility] Comment on above: Result Comment: Samp les from patients who have taken Naproxen have shown spurious elevation in Total Bilirubin levels. A metabolite of Naproxen, O-desmethylnaproxen, has been shown to interfere with the Jendrassik-Grof method for measuring Total Bilirubin. Performed By: #### L IPID, TSH3 wRFLX, CBC, [id number], T4F, CMP, [id number], LDLD, A1C WTH eA #### [place] [id number] [facility] Calcium [Mass/Vol] 9.1 mg/dL Normal 8.2-10.2 [facility] Comment on above: Performed By: #### L IPID, TSH3 wRFLX, CBC, [id number], T4F, CMP, [id number], LDLD, A1C WTH eA #### [place] [id number] [place] Chloride [Moles/Vol] 104 mmol/L Normal 95-114 [facility] Comment on above: Performed By: #### L IPID, TSH3 wRFLX, CBC, [id number], T4F, CMP, [id number], LDLD, A1C WTH eA #### [facility] [address] [place] [id number] [facility] CO2 [Moles/Vol] 20.0 mmol/L Low 22.0-30.0 [facility] Comment on above: Performed By: #### L IPID, TSH3 wRFLX, CBC, [id number], T4F, CMP, [id number], LDLD, A1C WTH eA #### [facility] [address] Creatinine [Mass/Vol] 0.73 mg/dL Normal 0.64-1.27 [facility] Comment on above: Performed By: #### L IPID, TSH3 wRFLX, CBC, [id number], T4F, CMP, [id number], LDLD, A1C WTH eA #### [facility] [address] Estimated GFR ( Marisol > 60 [facility] Comment on above: Result Comment: GFR estimated reference range: According to KDOQI guidelines, <60 ml/min/1.73m2 is sufficient to diagnose a patient with chronic kidney disease. Performed By: #### L IPID, TSH3 wRFLX, CBC, [id number], T4F, CMP, [id number], LDLD, A1C WTH eA #### [facility] [address] Estimated GFR (Non- Am > 60 [facility] Comment on above: Performed By: #### L IPID, TSH3 wRFLX, CBC, [id number], T4F, CMP, [id number], LDLD, A1C WTH eA #### [facility] [address] [place] [id number] [facility] Globulin (S) [Mass/Vol] 2.9 g/dL [facility] Comment on above: Performed By: #### L IPID, TSH3 wRFLX, CBC, [id number], T4F, CMP, [id number], LDLD, A1C WTH eA #### [facility] [address] Glucose [Mass/Vol] 86 mg/dL Normal 70-100 [facility] Comment on above: Result Comment: [facility] Glucose Reference Range is dependent on time and content of last meal. Glucose of more than 200 mg/dL in a nonstressed, ambulatory subject supports the diagnosis of Diabetes Mellitus. ADA recommended reference range Performed By: #### L IPID, TSH3 wRFLX, CBC, [id number], T4F, CMP, [id number], LDLD, A1C WTH eA #### [address] Potassium [Moles/Vol] 4.1 mmol/L Normal 3.5-5.1 [facility] Comment on above: Performed By: #### L IPID, TSH3 wRFLX, CBC, [id number], T4F, CMP, [id number], LDLD, A1C WTH eA #### [facility] [address] Protein [Mass/Vol] 6.6 g/dL Normal 6.1-7.9 [facility] Comment on above: Performed By: #### L IPID, TSH3 wRFLX, CBC, [id number], T4F, CMP, [id number], LDLD, A1C WTH eA #### [facility] [address] [place] [phone] [place] Sodium [Moles/Vol] 133 mmol/L Low 136-146 [facility] Comment on above: Performed By: #### L IPID, TSH3 wRFLX, CBC, [id number], T4F, CMP, [id number], LDLD, A1C WTH eA #### [facility] [address] [place] [id number] [place] Urea nitrogen [Mass/Vol] 6 mg/dL Low 9-23 Comment on above: Performed By: #### L IPID, TSH3 wRFLX, CBC, [id number], T4F, CMP, [id number], LDLD, A1C WT eA #### [facility] [address] Creatinine and Glomerular fi ltration rate.predicted panel (S/P/Bld)Ordered By: Medhat Baltazar on 03-12-2022 Creatinine [Mass/Vol] 0.73 mg/dL 0.64-1.27 [facility] Eosinophils Auto (Bld) [#/Vo l]Ordered By: Medhat Baltazar on 03-12-2022 Eosinophils (Bld) [#/Vol] 0.0 10*3/uL 0.0-0.45 Eosinophils/100 WBC Auto (Bl d)Ordered By: Medhat Baltazar on 03-12-2022 Eosinophils/100 WBC (Bld) 0.4 % . Erythrocyte distribution wid th Auto (RBC) [Ratio]Ordered By: Medhat Baltazar on 03-12-2022 Erythrocyte distribution width (RBC) [Ratio] 13.7 % 12.0-14.8 Estimated glomerular filtrat ion rate (GFR) non- AmericanOrdered By: Medhat Baltazar on 03-12-2022 GFR/1.73 sq M.predicted among non-blacks MDRD (S/P/Bld) [Vol rate/Area] > 60 mL/Min Folate [Mass/volume] in Seru m or PlasmaOrdered By: Medhat Baltazar on 03-12-2022 Folate [Mass/Vol] 7.2 ng/mL >5.9 [facility] Comment on above: Folate reference ran ge: >5.9 ng/ml The WHO technical consultation on folate and vitamin b12 deficiencies has determined that folate concentrations less than 4 ng/ml are considered deficient. Folate reference ran ge: >5.9 ng/mlThe WHO technical consultation on folate and vitamin [id number] has determined that folate concentrations lessthan 4 ng/ml are considered deficient. Free T4 (Free Thyroxine)on 0 03-12-2022 Free T4 [Mass/Vol] 0.41 ng/dL Low 0.61-1.12 [facility] Comment on above: Performed By: #### L IPID, TSH3 wRFLX, CBC, [id number], T4F, CMP, [id number], LDLD, A1C WTH eA #### [facility] [address] Globulin Calc (S) [Mass/Vol] Ordered By: Medhat Baltazar on 03-12-2022 Globulin (S) [Mass/Vol] 2.9 g/dL Glucose mean value [Mass/vol ume] in Blood Estimated from glycated hemoglobinOrdered By: Medhat Baltazar on 03-12-2022 Average glucose Estimated from glycated hemoglobin (Bld) [Mass/Vol] 111 mg/dL Hematocrit Auto (Bld) [Volum e fraction]Ordered By: Medhat Baltazar on 03-12-2022 Hematocrit (Bld) [Volume fraction] 43.7 % 38.8-50.0 Hemoglobin A1c percentageOrd ered By: Medhat Baltazar on 03-12-2022 HbA1c (Bld) [Mass fraction] 5.5 % 4.3-5.6 Comment on above: Increased risk for d iabetes: 5.7 - 6.4 diabetes: >6.4 glycemic control for adults with diabetes: <7.0 Increased risk for d iabetes: 5.7 - 6.4diabetes: >6.4glycemic control for adults with diabetes: <7.0 LDL Cholesterol Measuredon 0 03-12-2022 LDL Cholesterol Measured 64 mg/dL Normal 0-100 Comment on above: Result Comment: LDL ATP III CLASSIFICATION LDL less than 100 mg/dL Optimal LDL 100-129 mg/dL Near or above optimal LDL 130-159 mg/dL Borderline high LDL 160-189 mg/dL High LDL greater than 189 mg/dL Very high Performed By: #### L IPID, TSH3 wRFLX, CBC, [id number], T4F, CMP, [id number], LDLD, A1C WTH eA #### [facility] [address] Laboratory - Chemistry and C hemistry - challengeOrdered By: Medhat Baltazar on 03-12-2022 Cobalamin (Vitamin B12) [Mass/Vol] 376 pg/mL 180-914 Laboratory - Hematology and Cell countsOrdered By: Medhat Baltazar on 03-12-2022 Nucleated RBC/100 WBC (Bld) [Ratio] 0.1 % 0-0.5 Lipid Panelon 03-12-2022 Cholesterol [Mass/Vol] 157 mg/dL Normal 140-200 [facility] Comment on above: Result Comment: Chol less than 200 mg/dl low risk Chol 201-239 mg/dl borderline risk Chol 240 mg/dl and greater high risk Performed By: #### L IPID, TSH3 wRFLX, CBC, [id number], T4F, CMP, [id number], LDLD, A1C WTH eA #### [facility] [address] [place] [address] [place] Cholesterol in HDL [Mass/Vol] 66 mg/dL Normal 29-71 Comment on above: Result Comment: HDL CHOL ATP-III CLASSIFICATION Cardiovascular Risk HDL > or equal to 60 mg/dL LOW HDL < 40 mg/dL HIGH Performed By: #### L IPID, TSH3 wRFLX, CBC, [id number], T4F, CMP, [id number], LDLD, A1C WTH eA #### [facility] [address] [place] [address] [place] Cholesterol.total/Chol esterol in HDL [Mass ratio] 2.4 {ratio} Normal <5.0 Comment on above: Performed By: #### L IPID, TSH3 wRFLX, CBC, [id number], T4F, CMP, [id number], LDLD, A1C WTH eA #### [facility] [address] [place] [address] [place] LDL Cholesterol,Calculated 42 mg/dL Normal 0-100 Comment on above: Result Comment: LDL ATP III CLASSIFICATION LDL less than 100 mg/dL Optimal LDL 100-129 mg/dL Near or above optimal LDL 130-159 mg/dL Borderline high LDL 160-189 mg/dL High LDL greater than 189 mg/dL Very high Performed By: #### L IPID, TSH3 wRFLX, CBC, [id number], T4F, CMP, [id number], LDLD, A1C WTH eA #### [facility] [address] Triglyceride w/Reflex 243 mg/dL High 35-149 [facility] Comment on above: Result Comment: TRIG ATP III CLASSIFICATION TRIG less than 150 mg/dL Normal TRIG 150-199 mg/dL Borderline high TRIG 200-500 mg/dL High TRIG greater than 500 mg/dL Very high Standard traceable to the Center for Disease Conrtrol and Prevention (CDC) test method. Performed By: #### L IPID, TSH3 wRFLX, CBC, [id number], T4F, CMP, [id number], LDLD, A1C WTH eA #### [facility] [address] VLDL CHOLESTEROL 48 mg/dL Normal [facility] Comment on above: Performed By: #### L IPID, TSH3 wRFLX, CBC, [id number], T4F, CMP, [id number], LDLD, A1C WTH eA #### [facility] [address] Lymphocytes Auto (Bld) [#/Vo l]Ordered By: Medhat Baltazar on 03-12-2022 Lymphocytes (Bld) [#/Vol] 1.6 10*3/uL 1.00-4.8 Lymphocytes/100 WBC Auto (Bl d)Ordered By: Medhat Baltazar on 03-12-2022 Lymphocytes/100 WBC (Bld) 29.2 % . MCH Auto (RBC) [Entitic mass ]Ordered By: Medhat Baltazar on 03-12-2022 MCH (RBC) [Entitic mass] 34.1 pg 27.5-35.2 MCHC Auto (RBC) [Mass/Vol]Or dered By: Medhat Baltazar on 03-12-2022 MCHC (RBC) [Mass/Vol] 33.8 g/dL 32.5-35.6 [facility] MCV Auto (RBC) [Entitic vol] Ordered By: Medhat Baltazar on 03-12-2022 MCV (RBC) [Entitic vol] 101.1 fL 83.5-101 Monocytes Auto (Bld) [#/Vol] Ordered By: Medhat Baltazar on 03-12-2022 Monocytes (Bld) [#/Vol] 0.4 10*3/uL 0.0-0.8 Monocytes/100 WBC Auto (Bld) Ordered By: Medhat Baltazar on 03-12-2022 Monocytes/100 WBC (Bld) 7.0 % . Neutrophils Auto (Bld) [#/Vo l]Ordered By: Medhat Baltazar on 03-12-2022 Neutrophils (Bld) [#/Vol] 3.3 10*3/uL 1.8-7.7 Neutrophils/100 WBC Auto (Bl d)Ordered By: Medhat Baltazar on 03-12-2022 Neutrophils/100 WBC (Bld) 62.8 % . No Panel InformationOrdered By: Medhat Baltazar on 03-12-2022 25-Hydroxy Vitamin D Total 7.9 ng/mL 30-100 Comment on above: VITAMIN D STATUS 25( [...] 96(7):1911-30. Estimated GFR () > 60 mL/Min Comment on above: GFR estimated refere nce range: According to KDOQI guidelines, <60 ml/min/1.73m2 is sufficient to diagnose a patient with chronic kidney disease. Pharmacy Creatinine Clearance (Chem N/A Platelet mean volume Auto (B ld) [Entitic vol]Ordered By: Medhat Baltazar on 03-12-2022 Platelet mean volume (Bld) [Entitic vol] 8.7 fL 6.6-10.1 Platelets Auto (Bld) [#/Vol] Ordered By: Medhat Baltazar on 03-12-2022 Platelets (Bld) [#/Vol] 218 10*3/uL 150-450 Protein [Mass/volume] in Ser um or PlasmaOrdered By: Medhat Baltazar on 03-12-2022 Protein [Mass/Vol] 6.6 g/dL 6.1-7.9 [facility] RBC Auto (Bld) [#/Vol]Ordere d By: Medhat Baltazar on 03-12-2022 RBC (Bld) [#/Vol] 4.33 10*6/uL 3.90-5.60 [facility] Serum or plasma alanine lara otransferase measurement without P-5'-P (enzymatic activiOrdered By: Medhat Baltazar on 03-12-2022 ALT No additional P-5'-P [Catalytic activity/Vol] 39 U/L 10-60 Serum or plasma albumin/glob ulin mass ratioOrdered By: Medhat Baltazar on 03-12-2022 Albumin/Globulin [Mass ratio] 1.3 {ratio} Serum or plasma alkaline refugio sphatase measurement (enzymatic activity/volume)Ordered By: Medhat Baltazar on 03-12-2022 ALP [Catalytic activity/Vol] 87 U/L 32-92 Serum or plasma aspartate am inotransferase measurement (enzymatic activity/volume)Ordered By: Medhat Baltazar on 03-12-2022 AST [Catalytic activity/Vol] 23 U/L 10-42 Serum or plasma calcium charlee urement (mass/volume)Ordered By: Medhat Baltazar on 03-12-2022 Calcium [Mass/Vol] 9.1 mg/dL 8.2-10.2 [facility] Serum or plasma chloride yvette surement (moles/volume)Ordered By: Medhat Baltazar on 03-12-2022 Chloride [Moles/Vol] 104 mmol/L 95-114 [facility] Serum or plasma cholesterol in LDL measurement (mass/volume)Ordered By: Medhat Baltazar on 03-12-2022 Cholesterol in LDL [Mass/Vol] 64 mg/dL 0-100 Comment on above: LDL ATP III CLASSIFI [...] on 03-12-2022 Glucose [Mass/Vol] 86 mg/dL 70-100 [facility] Comment on above: ADA recommended refe rence [...] Cholesterol in HDL [Mass/Vol] 66 mg/dL 29-71 Comment on above: HDL CHOL ATP-III CLA SSIFICATION Cardiovascular Risk HDL > or equal to 60 mg/dL LOW HDL < 40 mg/dL HIGH HDL CHOL ATP-III CLA SSIFICATION Cardiovascular RiskHDL > or equal to 60 mg/dL LOWHDL < 40 mg/dL HIGH Serum or plasma potassium me asurement (moles/volume)Ordered By: Medhat Baltazar on 03-12-2022 Potassium [Moles/Vol] 4.1 mmol/L 3.5-5.1 [facility] Serum or plasma sodium measu rement (moles/volume)Ordered By: Medhat Baltazar on 03-12-2022 Sodium [Moles/Vol] 133 mmol/L 136-146 [facility] Serum or plasma total biliru bin measurement (mass/volume)Ordered By: Medhat Baltazar on 03-12-2022 Bilirubin [Mass/Vol] 1.5 mg/dL 0.3-1.2 [facility] Comment on above: Samples from patient s who have taken Naproxen have shown spurious elevation in Total Bilirubin levels. A metabolite of Naproxen, O-desmethylnaproxen, has been shown to interfere with the Christiana-Pb method for measuring Total Bilirubin. Serum or plasma total carbon dioxide measurement (moles/volume)Ordered By: Medhat Baltazar on 03-12-2022 CO2 [Moles/Vol] 20.0 mmol/L 22.0-30.0 [facility] Serum or plasma total choles terol/high density lipoprotein (HDL) cholesterol mass ratOrdered By: Medhat Baltazar on 03-12-2022 Cholesterol.total/Chol esterol in HDL [Mass ratio] 2.4 {ratio} <5.0 Serum or plasma urea nitroge n measurement (mass/volume)Ordered By: Medhat Baltazar on 03-12-2022 Urea nitrogen [Mass/Vol] 6 mg/dL 9- TSH DL <= 0.005 mIU/L QnOrde red By: Medhat Baltazar on 03-12-2022 TSH Qn 44.00 m[IU]/L 0.45-5.33 Thyroid Stim Hormone w/Rflxo n 03-12-2022 Thyroid Stim Hormone w/Rflx 44.00 u[iU]/mL High 0.45-5.33 Comment on above: Performed By: #### L IPID, TSH3 wRFLX, CBC, [id number], T4F, CMP, [id number], LDLD, A1C WTH eA #### [facility] [address] Thyroxine (T4) free [Mass/vo lume] in Serum or PlasmaOrdered By: Medhat Baltazar on 03-12-2022 Free T4 [Mass/Vol] 0.41 ng/dL 0.61-1.12 [facility] Triglyceride [Mass/volume] i n Serum or PlasmaOrdered By: Medhat Baltazar on 03-12-2022 Triglyceride [Mass/Vol] 243 mg/dL 35-149 Comment on above: TRIG ATP III CLASSIF [...] (Vitamin B12) [Mass/Vol] 376 pg/mL Normal 180-914 Comment on above: Performed By: #### L IPID, TSH3 wRFLX, CBC, [id number], T4F, CMP, [id number], LDLD, A1C WTH eA #### [facility] [address] Folate 7.2 ng/mL Normal >5.9 Comment on above: Result Comment: Julia te reference range: >5.9 ng/ml The WHO technical consultation on folate and vitamin b12 deficiencies has determined that folate concentrations less than 4 ng/ml are considered deficient. Performed By: #### L IPID, TSH3 wRFLX, CBC, [id number], T4F, CMP, [id number], LDLD, A1C WTH eA #### [facility] [address] [place] [id number] [place] Vitamin D 25 Hydroxy Totalon 03-12-2022 Vitamin D 25 Hydroxy Total 7.9 ng/mL Low 30-100 Comment on above: Result Comment: MAIRA MIN D STATUS 25(OH)VITAMIN D RANGE (ng/mL) Deficient <20 Insufficient 20 to <30 Sufficient 30 to 100 Reference: Jay MF,Franklyn NC, Isaac FRANCES, et al. Evaluation,treatment, and prevention of vitamin D deficiency; an Endocrine Society clinical practice guideline. JCEM. 2010; 96(7):1911-30. PERFORMED BY: [facility] [address] [place] [address] PATHOLOGIST HELPER DRIVER MARCO ANTONIO FINLEY M.D. Performed By: #### L IPID, TSH3 wRFLX, CBC, [id number], T4F, CMP, [id number], LDLD, A1C WTH eA #### [facility] [address] [place] [id number] [facility] Office Visit (Cardiology)on 01-07-2022 Follow-up visit Diagnoses/Problems Assessed Atherosclerosis of coronary artery of [place] heart without angina pectoris (414.01) (I25.10) Essential [...] week Orders Atherosclerosis of coronary artery of [place] heart without angina pectoris Renew: Aspirin Low [...] Ejection Fraction; Status:Active - Retrospective Authorization; Requested for:[id number]; SocHx: Nicotine-filled electronic cigarette user You need to stop smoking. Though it is not easy, more than half of all adult smokers have quit. We encourage you to write down all the reasons you should quit smoking and set a quit date for yourself. Ask us how we can help. You may also call 8-342-OZJKNOW for free resources and assistance.; Status:Complete - [...] prn Ondansetro (more content not included)... Normal [facility] Tobacco Screening.on 022 Adult depression screening assessment No [facility] [address] DO Work Phone: Tobacco use status [facility] b) No [facility] DO Work Phone: CBC AUTO DIFFon 07-29-2021 BASO # 0.0 103/ul Normal 0.0-0.1 [facility] Comment on above: Performed By: #### L ACT #### [facility] [address] [place] [address] [address] Wilda Patel Basophils/100 WBC (Bld) 0.3 % Normal 0.2-2.0 [facility] Comment on above: Performed By: #### L ACT #### [facility] [address] [place] [address] [address] Wilda Patel EO # 0.0 103/ul Normal 0.0-0.7 [facility] Comment on above: Performed By: #### L ACT #### [facility] [address] [address] [address] Wilda Patel Eosinophils/100 WBC (Bld) 0.3 % Critically low 0.9-7.0 [facility] Comment on above: Performed By: #### L ACT #### [facility] [address] [place] [address] Dr. Wilda Patel Erythrocyte distribution width (RBC) [Ratio] 13.5 % Normal 11.0-15.0 [facility] Comment on above: Performed By: #### L ACT #### [facility] [address] [place] [address] Dr. Wilda Patel Hematocrit (Bld) [Volume fraction] 42.5 % Normal 42.0-54.0 [facility] Comment on above: Performed By: #### L ACT #### [facility] [address] [place] [address] Dr. Wilda Patel Hemoglobin (Bld) [Mass/Vol] 14.5 g/dL Normal 14.0-18.0 [facility] Comment on above: Performed By: #### L ACT #### [facility] [address] [place] [address] Dr. Wilda Patel IG # 0.05 10e3/ul Critically high 0.00-0.03 [facility] Comment on above: Performed By: #### L ACT #### [facility] [address] [place] [address] Dr. Wilda Patel IG % 0.5 % Normal 0.0-0.5 [facility] Comment on above: Performed By: #### L ACT #### [facility] [address] [place] [address] Dr. Wilda Patel LYMPH # 1.9 103/ul Normal 1.2-3.8 [facility] Comment on above: Performed By: #### L ACT #### [facility] [address] [place] [address] Dr. Wilda Patel Lymphocytes/100 WBC (Bld) 17.6 % Critically low 20.5-60.0 [facility] Comment on above: Performed By: #### L ACT #### [facility] [address] [place] [address] Dr. Wilda Patel MANUAL DIFF REQ NO Normal [facility] Comment on above: Performed By: #### L ACT #### [facility] [address] [place] [address] Dr. Wilda Patel MCH (RBC) [Entitic mass] 33.1 pg Normal 25.9-34.0 [facility] Comment on above: Performed By: #### L ACT #### [facility] [address] [place] [address] Dr. Wilda Patel MCHC (RBC) [Mass/Vol] 34.1 g/dL Normal 29.9-35.2 [facility] Comment on above: Performed By: #### L ACT #### [facility] [address] [place] [address] Dr. Wilda Patel MCV (RBC) [Entitic vol] 97.0 fL Critically high 80.0-94.0 [facility] Comment on above: Performed By: #### L ACT #### [facility] [address] [place] [address] Dr. Wilda Patel MONO # 0.9 103/ul Critically high 0.3-0.8 [facility] Comment on above: Performed By: #### L ACT #### [facility] [address] [place] [address] Dr. Wilda Patel Monocytes/100 WBC (Bld) 8.0 % Normal 1.7-12.0 [facility] Comment on above: Performed By: #### L ACT #### [facility] [address] [place] [address] Dr. Wilda Patel NEUT # 7.9 103/ul Critically high 1.4-6.5 [facility] Comment on above: Performed By: #### L ACT #### [facility] [address] [place] [address] Dr. Wilda Patel Neutrophils/100 WBC (Bld) 73.3 % Normal 43.0-75.0 [facility] Comment on above: Performed By: #### L ACT #### [facility] [address] [place], [place] [address] Dr. Widla Patel Platelet mean volume (Bld) [Entitic vol] 9.3 fL Critically low 9.5-13.5 [facility] Comment on above: Performed By: #### L ACT #### [facility] [address] [address] [address] Wilda Patel PLT 261 103/ul Normal 150-450 [facility] Comment on above: Performed By: #### L ACT #### [facility] [address] [address] [address] Wilda Patel RBC 4.38 106/ul Critically low 4.70-6.10 [facility] Comment on above: Performed By: #### L ACT #### [facility] [address] [address] [address] Wilda Patel WBC 10.8 103/ul Normal 4.0-11.0 [facility] Comment on above: Performed By: #### L ACT #### [facility] [address] ABD/PELV W CONon [...] CLAIR RAMIREZ Date: 2021-07-29 19:33 Normal [facility] CULTURE BLOODon 07-29-2021 Microscopic examination of blood, culture Culture Observations: NO GROWTH AT 5 DAYS. Normal The [facility] Comment on above: Performed By: #### C MREP #### [facility] [address] [place] [address] Dr. Wilda Patel Microscopic examination of blood, culture Culture Observations: NO GROWTH AT 5 DAYS. Normal [facility] Comment on above: Performed By: #### C MREP #### [facility] [address] [place] [address] Dr. Wilda Patel Covid-19 PCR ([facility]on SARS-CoV-2 (COVID-19) RNA SHREYA+probe Ql (Unsp spec) Not detected Normal NOT DETECTED [facility] Comment on above: Result Comment: This test is not yet approved or cleared by the [place] FDA. When there are no FDA-approved or cleared tests available, and other criteria are met, FDA can make tests available under an emergency access mechanism called an Emergency Use Authorization (EUA). The EUA for this test is supported by the [place] of Health and Human Service's (HHS's) declaration [...] SARS-CoV-2. Performed By: #### C VDTB #### [facility] [address] [place] [address] Dr. Wilda Patel ER URINE PROFILEon 2 Bilirubin Ql (U) Negative Normal NEGATIVE [facility] Comment on above: Performed By: #### E RUR #### [facility] [address] [place] [address] Dr. Wilda Patel Clarity (U) CLEAR Normal CLEAR [facility] Comment on above: Performed By: #### E RUR #### [facility] [address] [place] [address] Dr. Wilda Patel Color (U) YELLOW Normal YELLOW [facility] Comment on above: Performed By: #### E RUR #### [facility] [address] [place] [address] Dr. Wilda DOYLEMoni A micrscopic examination will be performed if indicated. Normal [facility] Comment on above: Performed By: #### E RUR #### [facility] [address] [place] [address] Dr. Wilda Patel Glucose Ql (U) Negative Normal NEGATIVE The [facility] Comment on above: Performed By: #### E RUR #### [facility] [address] [place] [address] Dr. Wilda Patel Hemoglobin Ql (U) Negative Normal NEGATIVE The [facility] Comment on above: Performed By: #### E RUR #### [facility] [address] [place] [address] Dr. Wilda Patel Ketones Ql (U) Negative Normal NEGATIVE The [facility] Comment on above: Performed By: #### E RUR #### [facility] [address] [place] [address] Dr. Wilda Patel LEUKOCYTES Negative Normal NEGATIVE [facility] Comment on above: Performed By: #### E RUR #### [facility] [address] [place] [address] Dr. Wilda Patel Nitrite Ql (U) Negative Normal NEGATIVE [facility] Comment on above: Performed By: #### E RUR #### [facility] [address] [place] [address] Dr. Wilda Patel pH (U) 5.5 [pH] Normal 5-9 [facility] Comment on above: Performed By: #### E RUR #### [facility] [address] [place] [address] Dr. Wilda Patel SPEC GRAVITY >=1.030 Abnormal 1.005-<=1.[address] [place] [address] Comment on above: Performed By: #### E RUR #### [facility] [address] [place] [address] Dr. Wilda Patel UA PROTEIN Negative Normal NEGATIVE/ TRACE [facility] Comment on above: Performed By: #### E RUR #### [facility] [address] [place] [address] Dr. Wilda Patel UR MICRO IND NOT INDICATED Normal [facility] Comment on above: Performed By: #### E RUR #### [facility] [address] [place] [address] Dr. Wilda Patel Urobilinogen Qn (U) 0.2 {Maria Luisa'U}/dL Normal 0.2 - 1. 0 [facility] Comment on above: Performed By: #### E RUR #### [facility] [address] [place] [address] Dr. Wilda Patel LACTATE/LACTIC ACIDon 2021 Lactate [Moles/Vol] 2.2 mmol/L Critically high 0.7-2.0 [facility] Comment on above: Performed By: #### L ACT #### [facility] [address] [place] [address] Dr. Wilda Patel PROF 14(COMP METB)on 022 Albumin [Mass/Vol] 2.9 g/dL Critically low 3.5-5.0 [facility] Comment on above: Performed By: #### C MP #### [facility] [address] [place] [address] Dr. Wilda Patel Albumin/Globulin [Mass ratio] 0.7 {ratio} Normal [facility] Comment on above: Performed By: #### C MP #### [facility] [address] [place] [address] Dr. Wilda Patel ALP [Catalytic activity/Vol] 137 U/L Critically high 38-126 [facility] Comment on above: Performed By: #### C MP #### [facility] [address] [place] [address] Dr. Wilda Patel ALT [Catalytic activity/Vol] 17 U/L Critically low 21-72 [facility] Comment on above: Performed By: #### C MP #### [facility] [address] [place] [address] Dr. Wilda Patel Anion gap [Moles/Vol] 14.8 mmol/L Normal [facility] Comment on above: Performed By: #### C MP #### [facility] [address] [place] [address] Dr. Wilda Patel AST [Catalytic activity/Vol] 15 U/L Critically low 17-59 [facility] Comment on above: Performed By: #### C MP #### [facility] [address] [place] [address] Dr. Wilda Patel Bilirubin [Mass/Vol] 0.7 mg/dL Normal 0.2-1.3 [facility] Comment on above: Performed By: #### C MP #### [facility] [address] [place] [address] Dr. Wilda Patel Calcium [Mass/Vol] 8.8 mg/dL Normal 8.4-10.2 [facility] Comment on above: Performed By: #### C MP #### [facility] [address] [address] [address] Wilda Patel Chloride [Moles/Vol] 97 mmol/L Critically low 98-107 [facility] Comment on above: Performed By: #### C MP #### [facility] [address] [address] [address] Wilda Patel CO2 [Moles/Vol] 26.9 mmol/L Normal 22.0-30.0 [facility] Comment on above: Performed By: #### C MP #### [facility] [address] [place] [address] Dr. Wilda Patel Creatinine [Mass/Vol] 0.95 mg/dL Normal 0.66-1.25 [facility] Comment on above: Performed By: #### C MP #### [facility] [address] [place] [address] Dr. Wilda Patel EGFR-AF CITIZEN OF [place] >60 Normal >=60 [facility] Comment on above: Performed By: #### C MP #### [facility] [address] [address] [address] Wilda Patel EGFR-NON AF CITIZEN OF [place] >60 Normal >=60 [facility] Comment on above: Performed By: #### C MP #### [facility] [address] [place] [address] Dr. Wilda Patel Globulin (S) [Mass/Vol] 4.2 g/dL Normal [facility] Comment on above: Performed By: #### C MP #### [facility] [address] [place] [address] Dr. Wilda Patel Glucose [Mass/Vol] 97 mg/dL Normal 74-106 [facility] Comment on above: Performed By: #### C MP #### [facility] [address] [address] [address] Wilda Patel Potassium [Moles/Vol] 3.7 mmol/L Normal 3.4-5.0 [facility] Comment on above: Performed By: #### C MP #### [facility] [address] [address] [address] Wilda Patel Protein [Mass/Vol] 7.1 g/dL Normal 6.1-8.2 [facility] Comment on above: Performed By: #### C MP #### [facility] [id number] Wilda Patel Sodium [Moles/Vol] 135 mmol/L Critically low 137-145 [facility] Comment on above: Performed By: #### C MP #### [facility] [address] [address] [address] Wilda Patel Urea nitrogen [Mass/Vol] 11.0 mg/dL Normal 9.0-20.0 [facility] Comment on above: Performed By: #### C MP #### [facility] [address] [address] [address] Wilda Patel Urea nitrogen/Creatinine [Mass ratio] 11.6 mg/mg Normal [facility] Comment on above: Performed By: #### C MP #### [facility] [address] [address] [address] Wilda Patel Tobacco Screening.on 021 Tobacco use status CPHS b) No [facility] DO Work Phone: Vital Signs Date Time Vital Sign Value Performing Clinician Facility 05-24-2024 13:37-0400 Diastolic blood pressure 86 mm[Hg] Blanco Kirnus [facility] 05-24-2024 13:37-0400 Heart rate 100 /min Blanco Kirnus [facility] 05-24-2024 13:37-0400 Respiratory rate 16 /min Blanco Kirnus [facility] 05-24-2024 13:37-0400 SaO2% (BldA) [Mass fraction] 96 % Blanco Kirnus [facility] 05-24-2024 13:37-0400 Systolic blood pressure 140 mm[Hg] Blanco Kirnus [facility] 04-26-2024 11:00-0400 Body height 167.6 cm Misti Edvin DO Work Phone: [facility] 04-26-2024 11:00-0400 Body mass index (BMI) [Ratio] 40.35 kg/m2 Misti Edvin DO Work Phone: [facility] 04-26-2024 11:00-0400 Body weight 113.4 kg Misti Edvin DO Work Phone: [facility] 04-26-2024 11:00-0400 Diastolic blood pressure 88 mm[Hg] Misti Edvin DO Work Phone: [facility] 04-26-2024 11:00-0400 Heart rate 84 /min Misti Edvin DO Work Phone: [facility] 04-26-2024 11:00-0400 SaO2% (BldA) [Mass fraction] 93 % Misti Edvin DO Work Phone: [facility] 04-26-2024 11:00-0400 Systolic blood pressure 131 mm[Hg] Misti Edvin DO Work Phone: [facility] 2022 14:09-0500 Body height 167.64 cm Referring Provider [facility] DO Work Phone: 2022 14:09-0500 Body mass index (BMI) [Ratio] 34.7 kg/m2 Referring Provider [facility] DO Work Phone: 2022 14:09-0500 Body surface area Derived from formula 2.06 m2 Referring Provider [facility] DO Work Phone: 2022 14:09-0500 Body weight 97.52 kg Referring Provider [facility] DO Work Phone: 2022 14:09-0500 Diastolic blood pressure 86 mm[Hg] Referring Provider [facility] DO Work Phone: 2022 14:09-0500 Heart rate 84 /min Referring Provider [facility] DO Work Phone: 2022 14:09-0500 Systolic blood pressure 116 mm[Hg] Referring Provider [facility] DO Work Phone: 01-07-2022 15:27-0400 Body height 167.64 cm Referring Provider [facility] DO Work Phone: 01-07-2022 15:27-0400 Body mass index (BMI) [Ratio] 35.02 kg/m2 Referring Provider [facility] DO Work Phone: 01-07-2022 15:27-0400 Body surface area Derived from formula 2.07 m2 Referring Provider [facility] DO Work Phone: 01-07-2022 15:27-0400 Body weight 98.43 kg Referring Provider [facility] DO Work Phone: 01-07-2022 15:27-0400 Diastolic blood pressure 70 mm[Hg] Referring Provider [facility] DO Work Phone: 01-07-2022 15:27-0400 Heart rate 84 /min Referring Provider [facility] S[facility] 250 DO Work Phone: 01-07-2022 15:27-0400 Systolic blood pressure 102 mm[Hg] Referring Provider [facility] 250 DO Work Phone: 12-30-2021 11:50-0400 Body height 167.6 cm Trauma Resident [facility] 12-30-2021 11:50-0400 Body mass index (BMI) [Ratio] 35.19 kg/m2 Trauma Resident [facility] 12-30-2021 11:50-0400 Body weight 98.88 kg Trauma Resident [facility] 06-07-2022 11:50-0400 Diastolic blood pressure 63 mm[Hg] Trauma Resident [facility] 12-30-2021 11:50-0400 Heart rate 100 /min Trauma Resident [facility] 12-30-2021 11:50-0400 Respiratory rate 18 /min Trauma Resident [facility] 12-30-2021 11:50-0400 Systolic blood pressure 101 mm[Hg] Trauma Resident [facility] 07-07-2021 11:05-0500 Body height 167.64 cm Referring Provider [facility] DO Work Phone: 07-07-2021 11:05-0500 Body mass index (BMI) [Ratio] 35.83 kg/m2 Referring Provider [facility] DO Work Phone: 07-07-2021 11:05-0500 Body surface area Derived from formula 2.09 m2 Referring Provider [facility] DO Work Phone: 07-07-2021 11:05-0500 Body weight 100.7 kg Referring Provider [facility] DO Work Phone: 07-07-2021 11:05-0500 Diastolic blood pressure 72 mm[Hg] Referring Provider [facility] DO Work Phone: 07-07-2021 11:05-0500 Heart rate 96 /min Referring Provider [facility] DO Work Phone: 07-07-2021 11:05-0500 Systolic blood pressure 108 mm[Hg] Referring Provider [facility] DO Work Phone: Encounters Encounter Date Encounter Type Care Provider Facility Start: 05-24-2024 End: 05-24-2024 ambulatory Blanco Lazcano Facility:[facility] Start: 05-24-2024 End: 05-24-2024 Patient encounter procedure Blanco Lazcano [facility] Start: 04-26-2024 End: 04-26-2024 Bamboo flowsheet Mistigeorgie [...] 12-03-2022 End: 12-29-2022 Pre-admission assessment Nabil Rosales [facility] Start: 09-14-2022 Rx Renewal Referring Prov ider [facility] DO Work Phone: Start: 2022 FUV, Provider: Aaron Ocampo, Status: Pen, Time: 2:00 PM Referring Provider [facility] DO Work Phone: Start: 2022 Office outpatient visit 25 minutes Referring Provider [facility] DO Work Phone: Start: 2022 ambulatory PCP UNKNOWN Facility:1 [id number] Start: 08-17-2022 End: 08-21-2022 Office outpatient visit 25 minutes Vanessa Wilson MD Work Phone: [facility] Comment on above: Attention to ileosto my (HCC) (Primary Dx); Chronic obstructive pulmonary disease, unspecified COPD type (HCC); Ischemic cardiomyopathy; S/P colostomy takedown Start: 08-14-2022 Rx Renewal Referring Prov ider [facility] DO Work Phone: Start: 08-13-2022 Rx Renewal Referring Prov ider [facility] DO Work Phone: Start: 08-06-2022 Telephone encounter Vanessa davalos MD Work Phone: [facility] Start: 07-22-2022 End: 07-23-2022 [facility] Facility: Start: 06-08-2022 End: 06-08-2022 ambulatory Restoration Lowrie Facility: Start: 06-08-2022 End: 06-08-2022 ambulatory DO Restoration Lowrie Work Phone: [facility] Work Phone: Start: 06-08-2022 End: 06-08-2022 Departed Referred DO Restoration Lowrie Work Phone: [facility] Start: 06-04-2022 ambulatory SAV SOLIS Facility:H 1 Start: 05-28-2022 End: 05-28-2022 ambulatory Carolyn Dugan Facility: Start: 05-28-2022 End: 05-28-2022 Patient encounter procedure DO Restoration Lowrie Work Phone: [facility] Start: 05-21-2022 Chart Update Referring Prov ider [facility] DO Work Phone: Start: 05-06-2022 Patient encounter procedure Referring Provider [facility] [place] Work Phone: Start: 05-06-[address] Aaron Ocampo II Facility:[id number] Start: 03-12-2022 End: 03-12-2022 ambulatory Medhat Baltazar Facility: Start: 03-12-2022 End: 03-12-2022 Departed Referred DO Carmine Enriquealinesuleiman Work Phone: [facility] Start: 01-07-2022 Office outpatient visit 25 minutes Referring Provider [facility] DO Work Phone: Start: 01-07-2022 ambulatory Aaron Ocampo II Facility: Start: 12-30-2021 End: 12-31-2021 Office outpatient visit 15 minutes Trauma Surgery Resident [facility] Comment on above: Attention to ileosto my (HCC) (Primary Dx); Body mass index (BMI) 35.0-35.9, adult Start: 12-19-2021 Telephone encounter Jina Mclean [facility] Start: 10-13-2021 Rx Renewal Referring Prov ider [facility] DO Work Phone: Start: 09-15-2021 Rx Renewal Referring Prov ider [facility] DO Work Phone: Start: 08-25-2021 Rx Renewal Referring Prov ider [facility] DO Work Phone: Start: 07-29-2021 End: 07-30-2021 ambulatory [facility] Facility: Start: 07-21-2021 Rx Renewal Referring Prov ider [facility] DO Work Phone: Start: 07-17-2021 Rx Renewal Referring Prov ider [facility] DO Work Phone: Start: 07-07-2021 Office outpatient visit 25 minutes Referring Provider [facility] DO Work Phone: Start: 05-28-2021 AUDIT No PCP None [facility] DO Work Phone: Start: 04-25-2021 Rx Renewal No PCP None [facility] DO Work Phone: Start: 10-13-2018 Patient encounter procedure AARON OCAMPO Facility:[id number] Start: 08-26-2018 Patient encounter procedure PATY GUERRA Facility:[id number] Patient encounter status Referring Provider [facility] DO Work Phone: Procedures Date [...] [facility]; Appendectomy No PCP None Appendectomy Nabil Ghtora [employer] Colostomy Nabil Ghotra [employer] Heart structure (bod y structure) Nabil Rosales [...] [facility] [address] [email or web address] [address] [place] [address] Amber Cuellar, DO [address] [place] [address] [facility] Start: 07-04-2024 End: 07-04-2024 Patient encounter procedure 07/04/2024 2:15 PM EST Office Visit [facility] [address] [place] [address] Misti Pardo, DO [address] [place] [address] [facility] Start: 04-26-2024 End: 04-26-2024 Patient encounter procedure 04/26/2024 11:[address] [facility] [address] [place] [address] Misti Pardo, DO [address] [place] [address] COPD with acute exacerbation ([facility] Comment on above: COPD with acute exac erbation ([facility]) Start: 03-26-2024 Influenza vaccination Influenza Vacc ine (#1) [facility] Start: 05-12-2023 FUV, Provider: Aaron Ocampo, Status: Pen, Time: 1:20 PM FUV, Provider: Aaron Ocampo, Status: Pen, Time: 1:20 PM [facility] Work Phone: Start: 03-26-2023 COVID-19 Vaccine ( season) COVID-19 Vaccine ( season) [facility] Start: 09-17-2022 STRESS NUC, Provider : TERESSA HHVI NUCLEAR ,[id number], Status: Pen, Time: 12:00 PM STRESS NUC, Provider: TERESSA HHVI NUCLEAR ,[id number], Status: Pen, Time: 12:00 PM [facility] Work Phone: Start: 2022 FUV, Provider: Aaron Ocampo, Status: Pen, Time: 2:00 PM FUV, Provider: Aaron Ocampo, Status: Pen, Time: 2:00 PM [facility] Work Phone: Start: 08-17-2022 End: 08-17-2022 Patient encounter procedure 08/17/2022 Office Visit Trauma Surgery [facility] Start: 07-30-2022 Basic metabolic 2000 panel - Serum or Plasma Basic Metabolic Panel [facility] Start: 07-30-2022 Creatinine measurement Basic Metabol ic [facility] Start: 04-25-2022 Influenza vaccination Influenza Vacc ine [facility] Start: 02-20-2022 MUGA, Provider: TERESSA HHVI NUCLEAR 01,[id number], Status: Pen, Time: 2:00 PM MUGA, Provider: TERESSA HHVI NUCLEAR 01,[id number], Status: Pen, Time: 2:00 PM [facility] 250 DO Work Phone: Start: 01-07-2022 FUV, Provider: Aaron Ocampo, Status: Pen, Time: 3:30 PM FUV, Provider: Aaron Ocampo, Status: Pen, Time: 3:30 PM [facility] 250 DO Work Phone: Start: 12-30-2021 End: 12-30-2021 Patient encounter procedure 12/30/2021 Office Visit Trauma Surgery [facility] Start: 05-12-2021 FUV, Provider: Aaron Ocampo, Status: Pen, Time: 8:00 AM FUV, Provider: Aaron Ocampo, Status: Pen, Time: 8:00 AM [facility] 250 DO Work Phone: Start: 03-25-2021 Thyroid stimulating hormone measurement TSH [facility] Start: 08-08-2020 Pneumococcal vaccination [facility] Start: 2016 Measurement of occul t blood in single stool specimen FIT [facility] Start: 2016 Shingles (RZV) Vacci ne (1 of 2) Shingles (RZV) Vaccine (1 of 2) [facility] Start: 2011 Screening for malign ant neoplasm of colon [facility] Start: 2001 Lipid panel Cholesterol [facility] Start: 1985 Hepatitis A (HAV) Vaccine (optional start 19+ years) Hepatitis A (HAV) Vaccine (optional start 19+ years) [facility] Start: 1985 Hepatitis B vaccination Hepati tis B (HBV) Vaccine (1 of 3 - 19+ 3-dose series) [facility] Start: 1984 Tetanus + diphtheria + acellular pertussis vaccine (product) Tdap Booster [facility] Start: 1971 COVID-19 Vaccine (#1) COVID-19 Vacci ne (#1) [facility] Start: 02-16-1967 COVID-19 Vaccine (#1) COVID-19 Vacci ne (#1) [facility] Start: 1966 Abdominal aortic aneurysm screening Pulmonary Function Testing [facility] Start: 1966 Ejection Fraction Ejection Fraction [facility] Start: 1966 Pulmonary Function Testing Pulmonary Function Testing [facility] Start: 1966 Screening for malign ant neoplasm of [facility] Immunizations Immunization Date Immunization Notes Care Provider Ana moura 04-02-2022 influenza, high dose seasonal, preservative-free Referring Provider [place] [address] [address] DO Work Phone: 04-02-2022 influenza virus vaccine, unspecified formulation Misti Pardo DO Work Phone: [facility] 10-17-2020 Albumin Jina Wrendianne [facility] 08-26-2019 influenza, seasonal, injectable No PCP None [address] [address] DO Work Phone: 08-26-2019 influenza virus vaccine, unspecified formulation Vanessa Wilson MD Work Phone: [facility] 08-08-2019 pneumococcal polysaccharide vaccine, 23 valent No PCP None [facility] 07-05-2019 Influenza, injectabl e, Madin Alyse Canine Kidney, preservative free, quadrivalent No PCP None [facility] 250 DO Work Phone: 07-26-2018 influenza virus vaccine, unspecified formulation Referring Provider Unknown [facility] 250 DO Work Phone: 07-24-2018 influenza, injectabl e, quadrivalent, preservative free No [facility]CP [facility] Payers Date Payer Category Payer Medicaid [id number] 2018 Medicaid [id number] 1966 Unknown [id number] [id number] 1966 Unknown [id number] 2.16.8 [id number] 1966 Unknown [id number] 2.16.8 [id number] 1966 Unknown [id number] 2.16.84 [id number] 1966 Unknown [id number] 2.16.84 [id number] 1966 Unknown [id number] 2.16.84 [id number] 1966 Unknown [id number] 2.16. [id number] 1966 Unknown [id number] 2.16. [id number] 1965 Unknown [id number] 2.16. [id number] 1965 Unknown [id number] 2.16.84 0.1.190479.3.579.2.1259 1966 Unknown [id number] 2.16.84 0.1.482178.3.579.2.1259 1966 Unknown [id number] 2.16.84 0.1.963810.3.579.2.1259 1966 Unknown [id number] 2.16.84 0.1.195447.3.579.2.1259 1966 Unknown [id number] 2.16.84 0.1.950568.3.579.2.1259 1966 Unknown [id number] 2.16.8 40.1.346338.3.579.2.727 1958 Medicaid [id number] 1958 Self-pay [id number] Unknown [id number] Unknown Unknown HCAP/HFA/FAP Active [id number] Unknown [id number] 2.16.8 40.1.707523.3.579.2.531 Unknown [id number] 2.16.8 40.1.402279.3.579.2.531 Unknown [id number] 2.16.8 40.1.798107.3.579.2.531 Social History Date Type Detail Facility Start: 01-14-2021 End: 01-17-2024 Rarely consumes alcohol Rarely consumes alcohol [place] [address] DO Work Phone: Comment on above: QUIT 2017 07 PPD; quit 05/26/2021; one electronic devic e a week; Start: 01-14-2021 End: 05-24-2024 Tobacco smoking status [facility] Light tobacco smoker [facility] History of tobacco use [facility] Start: 01-14-2021 End: 12-30-2022 Tobacco use and exposure Smokeless tobacco non-user [facility] Start: 10-06-2019 Tobacco Comment Smokes approx three cigarettes a month when pt is stressed [facility] Start: 1965 Sex Assigned At Not on file [facility] Start: 11-28-2020 End: 12-30-2022 Tobacco smoking status [facility] Ex-smoker (finding) Start: 1965 Sex Assigned At Male [facility] Start: 12-30-2021 End: 06-24-2024 Sex Assigned At Male Aaron Brock [facility] History of tobacco use Current smoker [facility] Start: 04-25-2024 End: 04-26-2024 Alcoholic beverage intake Lifetime non-drinker (finding) [facility] Start: 12-30-2022 Alcohol Comment soda/pop 1-2 cups/da y [facility] Medical Equipment Procedure Code Equipment Code Equipment [...] MOUTH EVERY DAY FOR 90 DAYS HYDROcodone-acetaminophen ([place]) 5-325 MG tablet every 6 (six) hours. [...] by mouth at bedtime 30 tablet 5 Qbkvysdetjq-Mhxkpprtk-Ekjvju (Trelegy Ellipta) 200-62.5-25 MCG/ACT aerosol powder Inhale 1 puff Daily 1 each 5 No current facility-administered medications for this visit. Past Medical History: Diagnosis Date Abscess of sigmoid colon due to diverticulitis 01/17/2024 Angina pectoris ([facility]) Cardiogenic pulmonary edema ([facility]) 01/17/2024 Colostomy present ([facility]) COPD (chronic obstructive pulmonary disease) ([facility]) H/O ileostomy Heart failure ([facility]) History of stomach ulcers Hyponatremia 01/17/2024 Single subsegmental thrombotic pulmonary embolism without acute cor pulmonale ([facility]) 09/07/2019 Smoking 01/17/2024 Syncope 01/17/2024 Past Surgical [...] Misti Pardo DO documented in this encounter [facility] 01-02-2024 Note Addended by: JOHN COLLIER on: 01/02/2024 09:47 AM Modules accepted: Orders [facility] 01-02-2024 Miscellaneous Notes Addended by: JOHN COLLIER on: 01/02/2024 09:47 AM Modules accepted: Orders Addended by: JOHN COLLIER on: 12/29/2023 12:25 PM Modules accepted: Orders documented in this encounter [facility] 12-29-2023 Note Addended by: JOHN COLLIER on: 12/29/2023 12:25 PM Modules accepted: Orders [facility] 12-29-2023 Note Addended by: JOHN COLLIER on: 12/29/2023 12:25 PM Modules accepted: Orders [facility] 12-29-2023 Note Addended by: JOHN COLLIER on: 12/29/2023 12:25 PM Modules accepted: Orders [facility] 12-29-2023 Miscellaneous Notes Addended by: JOHN COLLIER on: 12/29/2023 12:25 PM Modules accepted: Orders documented in this encounter [facility] 12-29-2023 Note S: patient has been doing [...] from him. He has not seen his marketing operations analyst or his salvage supervisor in some time, but he will set up an appointment for medical risk stratification and optimization prior to going to our next clinic visit. Plan: We will follow up on operative risk stratification from his salvage supervisor and his marketing operations analyst We will schedule to see him in clinic in 1 month after these items are completed. We ask that he provide the fax number [phone] to his providers to send the pre op evaluation documents to our office [facility] 12-29-2023 History of Presen t illness [...] from him. He has not seen his marketing operations analyst or his salvage supervisor in some time, but he will set up an appointment for medical risk stratification and optimization prior to going to our next clinic visit. Plan: We will follow up on operative risk stratification from his salvage supervisor and his marketing operations analyst We will schedule to see him in clinic in 1 month after these items are completed. We ask that he provide the fax number [phone] to his providers to send the pre op evaluation documents to our office documented in this encounter [facility] 12-29-2023 History of Presen t illness Narrative [...] from him. He has not seen his marketing operations analyst or his salvage supervisor in some time, but he will set up an appointment for medical risk stratification and optimization prior to going to our next clinic visit. Plan: We will follow up on operative risk stratification from his salvage supervisor and his marketing operations analyst We will schedule to see him in clinic in 1 month after these items are completed. We ask that he provide the fax number [phone] to his providers to send the pre op evaluation documents to our office documented in this encounter [facility] 08-17-2022 Instructions Vanessa Wilson MD - 08/17/2022 2:28 PM EST Please send records from Dr. Ocampo to [facility] after appointment this upcoming Wednesday. Attn: Vanessa Wilson MD Trauma, Emergency General Surgery, Burn, and Surgical Critical Care Obtaining information to determine cardiac risk for Elective ileostomy reversal, possible exploratory laparotomy, possible bowel resection. Not an emergent or urgent surgery. documented in this encounter [facility] 08-17-2022 History of Presen t illness Narrative Images from the original note were not included. Trauma/Acute Care Surgery Clinic Note Eliceo Kenny is a 56 year old male with a history of hypothyroidism, RI, CHF, COPD, CAD (s/p PCI on ASA/Plavix), [...] healing well. He returned [place] ED [place] for abdominal pain and drainage of midline [...] state he recently had an admission to [facility] about 3 weeks prior for possible stroke [...] reverse his ileostomy. He has seen his salvage supervisor and states he was told that having [...] procedure. I will need records from his salvage supervisor, especially since he is potentially recommended for either a pacemaker or defibrillator, and I would like records from his marketing operations analyst (Dr. Solis at [facility]) since he requires frequent use of his rescue inhaler and he often appears in the office audibly wheezing. He has not had any colonoscopy in any of the records I have visible at [facility], and he states if he ever had one, it would have been through [facility]. I would also like his recent [...] need more information before I can adequately benefits counselor him on these risks and have an accurate discussion with him to determine if benefits outweigh substantial risks. I had him sign medical release forms to obtain records from [facility]. He states he has an appointment with cardiology this upcoming Wednesday, and I encouraged him to have them send his records during that visit. I provided the fax number and directions. Will plan for follow up once these have been obtained. Answered all question to the best of my ability. Vanessa Wilson MD documented in this encounter [facility] 08-06-2022 Telephone encounter Note Pt was last seen in December 2021, pt would like to see Dr. Wilson for a follow-up he is experiencing some discomfort and would like the doctor to review things with him concerning his health 08/17/2022 at 2:45 pm [facility] 08-06-2022 Miscellaneous Notes Pt was last seen in December 2021, pt would like to see Dr. Wilson for a follow-up he is experiencing some discomfort and would like the doctor to review things with him concerning his health 08/17/2022 at 2:45 pm documented in this encounter [facility] 12-30-2021 History of Presen t illness Narrative Images from the original note were not included. Trauma/Acute Care Surgery Clinic Note Eliceo Kenny is a 56 year old male with a history of hypothyroidism, RI, CHF, COPD, CAD (s/p PCI on ASA/Plavix), [...] healing well. He returned [place] ED [place] for abdominal pain and drainage of midline [...] chest pain. He does state that his salvage supervisor wants to evaluate him for defibrillator placement. [...] Recommended he continue to follow with his salvage supervisor and marketing operations analyst for management. I did also suggest that if he has any acute concerns about his abdomen that I recommend he try to go to the [facility] ED in [place] if he is able to get there instead of [facility] since myself and my partners rotate covering emergency general surgery call at [facility] 15/02. In the meantime, no scheduled follow [...] protocol implemented: No documented in this encounter [facility] 12-30-2021 Instructions Vanessa Wilson MD - 12/30/2021 1:31 PM EDT If you are concerned about your ostomy (the bag) or about a new abscess or anything related to your abdomen - come to the [facility] in [place] if you can, and ask for the [...] will take over documented in this encounter [facility] 12-19-2021 Telephone encounter Note Tried to reach patient about appt on that we needed to move to 6/7 and I got his voicemail that was not set up I will try back [facility] 12-19-2021 Miscellaneous Notes Tried to reach patient about appt on that we needed to move to 6/7 and I got his voicemail that was not set up I will try back documented in this encounter [facility] Evaluation + Plan note No data available for this section [facility] Evaluation + Plan note Future Appointments Appointment Date:08/24/2024 02:45:00 PM Scheduled Provider:Blanco Lazcano MD Location:[facility].Cardiology Clinic Appointment Type:Cardiology Follow Up ([facility]) [facility] Evaluation note Diagnosis Attention to ileostomy (HCC)- Primary Attention to ileostomy Body mass index (BMI) 35.0-35.9, adult [facility] Work Phone: Evaluation note* Diagnosis [...] exercise and weight loss were reviewed with him.[facility] [employer] DO Work Phone: History of Present illness [...] exercise and weight loss were reviewed with him.[place] [address] DO Work Phone: History of Present illness [...] exercise and weight loss were also advocated. [place] [address] DO Work Phone: History of Present illness [...] for disease that could complicate his procedure. [place] [address] DO Work Phone: Hospital Discharge instructions No data available for this section [facility] No data available for this section [facility] Summary Purpose Family History No Family History [...] seen for a 5 month follow-up of. [facility] Discharge 06/14/2021[facility] is being seen for a 5 month follow-up of. [facility] Discharge 06/14/2021[facility] is being seen for a 6 [...] Chronic obstructive pulmonary disease, unspecified COPD type ([facility]) Misti Pardo, DO [address] [place] [address] Referral ID Status Reason Start Date Expiration Date Visits Re quested Visits Authorized [id number] Closed 1 1 Additional Source Comments (unrecognized sect ion and content) No Status Records FoundNo Status Records FoundNo Status Records FoundNo Status Records FoundNo Status Records FoundNo Status Records FoundNo Status Records FoundNo Status Records FoundNo Status Records Found INFORMATION SOURCE (unrecogn ized section and content) DATE CREATED AUTHOR 10/23/2018 [facility] DATE CREATED AUTHOR AUTHOR'S ORGANIZ ATION 05/16/2022 [facility] DATE CREATED AUTHOR AUTHOR'S ORGANIZ ATION 07/28/2022 [facility] DATE CREATED AUTHOR AUTHOR'S ORGANIZ ATION 2022 [facility] DATE CREATED AUTHOR AUTHOR'S ORGANIZ ATION 2022 [employer] DATE CREATED AUTHOR AUTHOR'S ORGANIZ ATION 10/13/2022 [facility] DATE CREATED AUTHOR AUTHOR'S ORGANIZ ATION 03/11/2024 [facility] DATE CREATED AUTHOR AUTHOR'S ORGANIZ ATION 04/28/2024 [facility] EPIC DATE CREATED AUTHOR AUTHOR'S ORGANIZ ATION 05/31/2024 [facility] Care Teams (unrecognized sec tion and content) Coffee Weigher Relationship Specialty Start Date End Date Tawnya Pepper [address] [place] [address] PCP - General Family Medicine 03/28/[address] [id number] Wine Manager Social Work 04/30/20 Manjula Lind MD, PhD [address] [place] [address] [address] [place], [place] [phone] Physician Trauma Surgery 04/25/21 Coffee Weigher Relationship Specialty Start Date End Date Tawnya Pepper [address] [place] [address] PCP - General Family Medicine 03/28/[address] [phone] Wine Manager Social Work 04/30/20 Manjula Lind MD, PhD [address] [place] [address] [address] [place], [place] [phone] Physician Trauma Surgery 04/25/21 Team Status: Inactive Member Role Status Dates Carmine Jackson DO Attending Provider Active Medhat Baltazar , DO RES Referring Provider Active Team Status: Inactive Member Role Status Dates Medhat Baltazar , DO RES Attending Provider Active Team Status: Inactive Member Role Status Dates Medhat Baltazar DO RES Referring Provider Active Carolyn Dugan MD Attending Provider Active Coffee Weigher Relationship Specialty Start Date End Date Tawnya Pepper [address] [place] [address] PCP - General Family Medicine 03/28/[address] [address] Wine Manager Social Work 04/30/20 Manjula Lind MD, PhD [address] [place] [address] [place] [address] Physician Trauma Surgery 04/25/21 Coffee Weigher Relationship Specialty Start Date End Date Tawnya Pepper [address] [place] [id number] PCP - General Family Medicine 03/28/[address] [address] Wine Manager Social Work 04/30/20 Manjula Lind MD, PhD [address] [place] [address] [place] [address] Physician Trauma Surgery 04/25/21 Coffee Weigher Relationship Specialty Start Date End Date Tawnya Pepper [address] [place] [address] PCP - General Family Medicine 03/28/[address] [address] Wine Manager Social Work 04/30/20 Manjula Lind MD, PhD [address] [place] [address] [place] [address] Physician Trauma Surgery 04/25/21 Vanessa Wilson MD [address] [place] [address] [place] [address] Physician Trauma Surgery 08/29/22 Coffee Weigher Relationship Specialty Start Date End Date Tawnya Pepper [address] [place] [address] PCP - General Family Medicine 03/28/20 Cee Leo LISW [address] [address] Wine Manager Social Work 04/30/20 Manjula Lind MD, PhD [address] [place] [address] [place] [address] Physician Trauma Surgery 04/25/21 Vanessa Wilson MD [address] [place] [address] [place] [address] Physician Trauma Surgery 08/29/22 Coffee Weigher Relationship Specialty Start Date End Date Amber Cuellar DO [address] [place] [phone] PCP - General Family Medicine 12/01/22 Coffee Weigher Relationship Specialty Start Date End Date Amber Cuellar DO [address] [place] [phone] PCP - General Family Medicine 12/01/22 Goals [...] / Pulmonology Diagnoses COPD with acute exacerbation ([facility]) Procedures TX OFFICE/OUTPATIENT NEW HIGH MDM 60 MINUTES Amber Cuellar, DO [address] [place] [address] Misti Pardo, DO [address] [place] [address] Referral ID Status Reason Start Date Expiration Date V isits Requested Visits Authorized [id number] Closed Specialty Services Required 01/17/2024 07/15/2024 1 [...] BE BASED ON THE PRIMARY CLINICAL RECORDS. [employer] provides no warranty or guarantee of the accuracy or completeness of information in this document.
[2024-06-02] MEDS: OXYCODONE HCL 5 MG TABLET PO (20:00)
[2024-06-02] MEDS: ACETAMINOPHEN 325 MG TABLET 650 MG PO (20:01)
[2024-06-02] MEDS: TRAZODONE HCL 50 MG TABLET PO (21:42)
[2024-06-02] MEDS: LORAZEPAM 0.5 MG TABLET PO (21:42)
[2024-06-02] MEDS: ENOXAPARIN SODIUM 40 MG/0.4 ML SYRINGE SUBQ (21:42)
[2024-06-02] MEDS: CARVEDILOL 6.25 MG TABLET PO (21:42)
[2024-06-02] MEDS: GUAIFENESIN 200 MG/DEXTROMETHORPHAN 20 MG 10 ML UNIT DOSE CUP PO (21:42)
[2024-06-02] MEDS: METHYLPREDNISOLONE SOD SUCC PF 40 MG/ML VIAL IVP (21:42)
[2024-06-03] VITALS (18 sets, daily range): BP systolic 90–131; BP diastolic 58–79; PULSE 53–94; TEMP 36.4–36.5; O2SAT 91–94
[2024-06-03] MEDS: ACETAMINOPHEN 325 MG TABLET 650 MG PO ×2 (03:13→22:01)
[2024-06-03] MEDS: OXYCODONE HCL 5 MG TABLET PO ×2 (05:34→22:02)
[2024-06-03] MEDS: IPRATROPIUM/ALBUTEROL SULFATE 3 ML AMPUL.NEB IH (05:35)
[2024-06-03] MEDS: GUAIFENESIN 200 MG/DEXTROMETHORPHAN 20 MG 10 ML UNIT DOSE CUP PO ×2 (06:09→22:01)
[2024-06-03] MEDS: LEVOTHYROXINE SODIUM 100 MCG TABLET 200 MCG PO (06:09)
[2024-06-03] MEDS: METHYLPREDNISOLONE SOD SUCC PF 40 MG/ML VIAL IVP ×3 (06:09→22:01)
[2024-06-03 06:43] LABS: Hematocrit 42.6 % (42.0-54.0); Hemoglobin 14.6 g/dL (14.0-18.0); Immature Granulocytes Abs Auto 0.03 10^3/uL (0.00-0.03); Immature Granulocytes Pct Auto 0.7 % (0.0-0.5); Lymphocytes Absolute Auto 0.4 10^3/uL (1.2-3.8); Lymphocytes Percent Auto 9.3 % (20.5-60.0); Mean Corpuscular HGB Conc 34.3 g/dL (29.9-35.2); Mean Corpuscular Hemoglobin 34.4 pg (25.9-34.0); Mean Corpuscular Volume 100.2 fL (80.0-94.0); Mean Platelet Volume 9.6 fL (9.5-13.5); Monocytes Absolute Auto 0.2 10^3/uL (0.3-0.8); Monocytes Percent Auto 4.9 % (1.7-12.0); Neutrophils Absolute Auto 3.9 10^3/uL (1.4-6.5); Neutrophils Percent Auto 85.1 % (43.0-75.0); Platelet Count 185 10^3/uL (150-450); Red Blood Count 4.25 10^6/uL (4.70-6.10); Red Cell Distribution Width 13.3 % (11.0-15.0); White Blood Count 4.5 10^3/uL (4.0-11.0)
[2024-06-03 07:06] LABS: Alanine Aminotransferase 27 U/L (16-63); Albumin Globulin Ratio 0.7; Alkaline Phosphatase 110 U/L (46-116); Anion Gap 18.8; Aspartate Amino Transferase 23 U/L (15-37); Calcium 8.5 mg/dL (8.5-10.1); Carbon Dioxide 21.3 mmol/L (21.0-32.0); Chloride 100 mmol/L (98-107); Estimated GFR (African America >60 (>=60 mL/min/1.73m^2); Estimated GFR (Non-African Ame >60 (>=60 mL/min/1.73m^2); Globulin 4.3 g/dL; Glucose 209 mg/dL (74-106); Potassium 5.1 mmol/L (3.5-5.1); Sodium 135 mmol/L (136-145); Total Protein 7.3 g/dL (6.4-8.2)
--- NOTE | 2024-06-03 09:14 | CT_ITS ---
[address] [address] Patient Name: BO KENNY MRN: [id number] date: 1965 Sex: M Assigned Patient Location: MS Current Patient Location: Accession/Order Number: [id number] Exam Date: 06/03/2024 10:15 Report Date: 06/03/2024 11:29 At the request of: BUDDY ALEXANDER Procedure: CT angio chest EXAM: CT angio chest HISTORY: Cp., CVD Positive COMPARISON: None. TECHNIQUE: CT chest with intravenous contrast was performed with timing for the evaluation for pulmonary arteries. Multiplanar reformats were performed. MIP (maximum intensity projection) images or 3D post processing was performed. Dose reduction techniques were achieved by using automated exposure control and/or adjustment of mA and/or kV according to patient size and/or use of iterative reconstruction technique. FINDINGS: Lungs: No consolidation, pneumothorax, or effusion. Bibasilar atelectasis. Airways: Normal. Mediastinum: No adenopathy. Aorta: No aneurysm. Cardiac: Normal size. No pericardial effusion. Pulmonary vasculature: Diagnostic opacification of pulmonary arteries without evidence of pulmonary embolus. Normal morphology. Bones: No acute bony abnormality. Axilla: No adenopathy. Thyroid gland: No abnormality demonstrated on provided imaging. Soft tissues: Unremarkable. Upper abdomen: Unremarkable. Additional findings: None. CT/CT angio chest IMPRESSION:No evidence of pulmonary embolus or acute intrathoracic abnormality. Electronically authenticated by: EDUAR KEANE Date: 06/03/2024 11:29
[2024-06-03] MEDS: CLOPIDOGREL BISULFATE 75 MG TABLET PO (10:00)
[2024-06-03] MEDS: ASPIRIN 81 MG TABLET.DR PO (10:01)
[2024-06-03] MEDS: POTASSIUM CHLORIDE 10 MEQ ER TABLET 40 MEQ PO (10:01)
[2024-06-03] MEDS: CARVEDILOL 6.25 MG TABLET PO ×2 (10:01→22:01)
[2024-06-03] MEDS: LISINOPRIL 5 MG TABLET 2.5 MG PO (10:02)
[2024-06-03] MEDS: SPIRONOLACTONE 25 MG TABLET PO (10:02)
[2024-06-03] MEDS: ATORVASTATIN CALCIUM 40 MG TABLET 80 MG PO (10:02)
[2024-06-03] MEDS: FAMOTIDINE 20 MG TABLET 40 MG PO (10:02)
[2024-06-03] MEDS: CETIRIZINE HCL 10 MG TABLET 20 MG PO (10:03)
[2024-06-03] MEDS: FUROSEMIDE 40 MG TABLET PO (10:05)
[2024-06-03] MEDS: BENZONATATE 100 MG CAPSULE 200 MG PO ×2 (10:07→17:36)
--- NOTE | 2024-06-03 10:29 | P.HP_ITS ---
HPI H&P: HPI History of Present Illness Chief complaint: SHORTNESS OF BREATH/ CHEST PAIN Narrative: Patient presented to the emergency room with increasing cough and shortness of breath. Found to have acute COVID-19 with acute exacerbation of COPD. No hypoxia in the emergency room did have hypoxia overnight. When I saw patient up on the medical surgical floor, resting comfortably in bed is having some more pleuritic type pain. Breathing not improved overnight. Opioid HPI Opioid Management Most Recent Pain and Opioid Data: Last Pain Scale 2 06/03/24 10:00 06/03/24 Last Pain Assessment 06/03/24 10:00 Last MAR Pain Assessment 06/03/24 06:53 Last ORT Total Score 3 06/02/24 16:51 06/02/24 Last ORT Risk Category Low Risk 06/02/24 16:51 06/02/24 Review of Systems ROS Status of ROS 10 or more systems reviewed and unremark able except as noted in history and below PFSH PFSH Medical History (Updated 06/02/24 @ 15:48 by ) Morbid obesity ?E66.01 - Morbid (severe) obesity due to excess calories (ICD-10) Current smoker ?F17.200 - Nicotine dependence, unspecified, uncomplicated (ICD-10) HLD (hyperlipidemia) ?E78.5 - Hyperlipidemia, unspecified (ICD-10) (HFpEF) heart failure with preserved ejection fraction ?I50.30 - Unspecified diastolic (congestive) heart failure (ICD-10) HTN (hypertension) ?I10 - Essential (primary) hypertension (ICD-10) CAD (coronary artery disease) ?I25.10 - Atherosclerotic heart disease of [place] coronary artery without angina pectoris (ICD-10) Surgical History (Updated 06/02/24 @ 16:48 by Yudy James) History of ankle surgery ?Z98.890 - Other specified postprocedural states (ICD-10) Hx of appendectomy ?Z90.49 - Acquired absence of other specified parts of digestive tract (ICD- 10) Hx of colostomy H/O heart artery stent ?Z95.5 - Presence of coronary angioplasty implant and graft (ICD-10) Family History (Updated 06/02/24 @ 16:49 by Yudy James) Nephew No problems noted. Mother Family history of COPD (chronic obstructive pulmonary disease) Family history of cancer Family history of hypertension Family history of stroke Social History (Updated 06/02/24 @ 16:50 by Yudy James) Within the past year, how often did you have a drink containing alcohol: monthly or less Within the past year, how often did you have six or more drinks on one occasion: less than monthly Smoking status: Former smoker Second hand tobacco smoke exposure: No Non-prescribed substance use: denies use Previous occupational history: retired Highest level of school completed/degree received: GED or equivalent Little interest or pleasure in doing things: not at all Feeling down, depressed, or hopeless: not at all Feel stressed/tense/nervous/anxious/difficulty sleeping: not at all Do you think of yourself as: straight/heterosexual Gender Identity: male Meds Home Medications and Allergies Home Medications ?Medication ?Instructions ?Recorded ?Confirmed ?Type aspirin 81 mg capsule 81 mg PO DAILY 05/01/24 06/02/24 History atorvastatin 80 mg tablet 80 mg PO DAILY 05/01/24 06/02/24 History carvedilol 6.25 mg tablet 6.25 mg PO BID 05/01/24 06/02/24 History clopidogrel 75 mg tablet 75 mg PO DAILY 05/01/24 06/02/24 History furosemide 40 mg tablet 40 mg PO DAILY 05/01/24 06/02/24 History levothyroxine 200 mcg tablet 200 mcg PO DAILY 05/01/24 06/02/24 History (Euthyrox) lisinopril 2.5 mg tablet 2.5 mg PO DAILY 05/01/24 06/02/24 History spironolactone 25 mg tablet 25 mg PO QDAY 05/01/24 06/02/24 History (Aldactone) albuterol sulfate 90 mcg/actuation 2 inh inhalation Q4H PRN shortness 05/02/24 06/02/24 History breath activated powder inhaler of breath potassium chloride 20 mEq 40 meq PO DAILY 06/02/24 06/02/24 History tablet,extended release(part/cryst) (Klor-Con M) Allergies Allergy/AdvReac Type Severity Reaction Status Date / Time Penicillins Allergy Verified 10/13/23 15:50 Exam Constitutional Vital Signs, click to edit/add: Last Vital Signs Temp 97.7 F 06/03/24 10:11 Pulse 83 06/03/24 10:11 Resp 20 06/03/24 10:11 BP 131/79 06/03/24 10:11 Pulse Ox 93 L 06/03/24 10:11 O2 Del Method Nasal Cannula 06/03/24 10:11 O2 Flow Rate 2 06/03/24 10:11 Documenting provider has reviewed patient's vital signs: yes Common normals: apparent distress (Moderate respiratory distress) Chest Common normals: inspection of chest normal Respiratory Common normals: abnormal respiratory effort (Moderate respiratory distress) Auscultation: rhonchi and wheezes Cardio Common normals: regular rate and regular rhythm GI Common normals: Normal to inspection, nondistended, normoactive bowel sounds present Extremity Common normals: normal to inspection Results Labs Labs: Short CBC 06/02/24 06/03/24 Range/Units 14:31 06:32 WBC 5.7 4.5 (4.0-11.0) 10^3/uL Hgb 14.8 14.6 (14.0-18.0) g/dL Hct 43.5 42.6 (42.0-54.0) % Plt Count 186 185 (150-450) 10^3/uL BMP 06/03/24 06:32 Sodium 135 L Potassium 5.1 Chloride 100 Carbon Dioxide 21.3 BUN 17.0 Creatinine 1.13 Glucose 209 H Calcium 8.5 Liver Function 06/03/24 Range/Units 06:32 Total Bilirubin 1.0 (0.2-1.0) mg/dL AST 23 (15-37) U/L ALT 27 (16-63) U/L Alkaline Phosphatase 110 (46-116) U/L Albumin 3.0 L (3.4-5.0) g/dL Assessment and Plan Assessment and Plan (1) Hypoxia: (2) COVID: (3) Acute on chronic respiratory failure with hypoxia: (4) Acute exacerbation of chronic obstructive pulmonary disease: Plan Patient: Fever, sinus tachycardia, respiratory distress, normal white blood count, but with left shift consistent with bacterial process, hyponatremia, hyperglycemia all secondary to acute COVID-19 causing acute exacerbation of COPD with mild hypoxia. Patient also with chest pain. Acute COVID resulting in a hypoxia with acute exacerbation of COPD-19 with chest pain-check CTA concerning with high risk factors for pulmonary embolism. Maintain current anticoagulation. Steroids, antibiotics, inhalers. Held off on remdesivir, if patient not improving may need to add that Sinus tachycardia secondary to the acute [id number] daily Hyponatremia-monitor daily, held off on fluids as patient's with COVID are better off to be a little bit on the dry side Hypermagnesemia-not on supplementation, repeat level Hypercholesterolemia-continue with home medications Hypertension-continue with home medications Hyperglycemia secondary to acute [id number] daily Admission findings: Patient admitted initially to observation, having failed the observational time. Will change patient to inpatient status as medically necessary treatment will span 2 midnights with acute COVID-19 with hypoxia causing acute exacerbation of COPD
[2024-06-03 11:17] LABS: Glucometer 198 mg/dL (74-106)
[2024-06-03] MEDS: ALBUTEROL SULFATE 200 PUFF/6.7 GM INHALER IH ×3 (11:58→22:46)
[2024-06-03] MEDS: FLUTICASONE PROPIONATE HFA 110 MCG INHALER 120 PUFF/12 GM IH ×2 (11:59→22:46)
[2024-06-03] MEDS: IPRATROPIUM BROMIDE 200 PUFF/12.9 GM INHALER IH ×3 (11:59→22:46)
[2024-06-03] MEDS: KETOROLAC TROMETHAMINE 30 MG/ML VIAL IVP ×2 (12:48→17:36)
[2024-06-03] MEDS: INSULIN ASPART 300 UNIT/3 ML PEN SUBQ ×3 (12:49→22:02)
[2024-06-03] MEDS: AZITHROMYCIN 500 MG in 0.9 % SODIUM CHLORIDE 250 ML 250 MG IV (12:51)
[2024-06-03] MEDS: 0.9 % SODIUM CHLORIDE 250 ML 10 ML IV (12:51)
[2024-06-03] MEDS: CEFTRIAXONE 1,000 MG in 0.9 % SODIUM CHLORIDE 50 ML 100 MG IV (14:15)
[2024-06-03 15:34] LABS: Glucometer 182 mg/dL (74-106)
[2024-06-03 20:41] LABS: Glucometer 263 mg/dL (74-106)
[2024-06-03] MEDS: ONDANSETRON PF 4 MG/2 ML VIAL IV (22:01)
[2024-06-03] MEDS: ENOXAPARIN SODIUM 40 MG/0.4 ML SYRINGE SUBQ (22:01)
[2024-06-03] MEDS: TRAZODONE HCL 50 MG TABLET PO (22:02)
[2024-06-03] MEDS: HYOSCYAMINE SULFATE 0.125 MG TAB.SUBL SL (22:02)
[2024-06-04] VITALS (9 sets, daily range): BP systolic 104; BP diastolic 70; PULSE 54–92; TEMP 36.4; O2SAT 90–94
[2024-06-04] MEDS: KETOROLAC TROMETHAMINE 30 MG/ML VIAL IVP ×2 (00:48→05:33)
[2024-06-04] MEDS: BENZONATATE 100 MG CAPSULE 200 MG PO ×2 (00:50→09:51)
[2024-06-04] MEDS: ALBUTEROL SULFATE 200 PUFF/6.7 GM INHALER IH ×2 (05:07→12:15)
[2024-06-04] MEDS: IPRATROPIUM BROMIDE 200 PUFF/12.9 GM INHALER IH ×2 (05:07→12:15)
[2024-06-04] MEDS: LEVOTHYROXINE SODIUM 100 MCG TABLET 200 MCG PO (05:33)
[2024-06-04] MEDS: GUAIFENESIN 200 MG/DEXTROMETHORPHAN 20 MG 10 ML UNIT DOSE CUP PO (05:33)
[2024-06-04] MEDS: METHYLPREDNISOLONE SOD SUCC PF 40 MG/ML VIAL IVP (05:33)
[2024-06-04 06:37] LABS: Basophils Percent Auto 0.1 % (0.2-2.0); Hematocrit 43.8 % (42.0-54.0); Hemoglobin 14.9 g/dL (14.0-18.0); Immature Granulocytes Abs Auto 0.06 10^3/uL (0.00-0.03); Immature Granulocytes Pct Auto 0.5 % (0.0-0.5); Lymphocytes Absolute Auto 0.5 10^3/uL (1.2-3.8); Lymphocytes Percent Auto 3.9 % (20.5-60.0); Mean Corpuscular Hemoglobin 34.8 pg (25.9-34.0); Mean Corpuscular Volume 102.3 fL (80.0-94.0); Monocytes Absolute Auto 0.5 10^3/uL (0.3-0.8); Monocytes Percent Auto 3.8 % (1.7-12.0); Neutrophils Absolute Auto 11.6 10^3/uL (1.4-6.5); Neutrophils Percent Auto 91.7 % (43.0-75.0); Platelet Count 194 10^3/uL (150-450); Red Blood Count 4.28 10^6/uL (4.70-6.10); Red Cell Distribution Width 13.5 % (11.0-15.0); White Blood Count 12.6 10^3/uL (4.0-11.0)
[2024-06-04 06:44] LABS: Alanine Aminotransferase 21 U/L (16-63); Albumin Globulin Ratio 0.7; Albumin Level 2.9 g/dL (3.4-5.0); Alkaline Phosphatase 95 U/L (46-116); Anion Gap 19.2; Aspartate Amino Transferase 18 U/L (15-37); BUN Creatinine Ratio 20.8; Bilirubin Total 0.8 mg/dL (0.2-1.0); Calcium 8.6 mg/dL (8.5-10.1); Carbon Dioxide 19.9 mmol/L (21.0-32.0); Chloride 103 mmol/L (98-107); Estimated GFR (African America 51 (>=60 mL/min/1.73m^2); Estimated GFR (Non-African Ame 42 (>=60 mL/min/1.73m^2); Globulin 4.1 g/dL; Glucose 220 mg/dL (74-106); Potassium 5.1 mmol/L (3.5-5.1); Sodium 137 mmol/L (136-145)
[2024-06-04] MEDS: INSULIN ASPART 300 UNIT/3 ML PEN SUBQ (07:50)
[2024-06-04] MEDS: ASPIRIN 81 MG TABLET.DR PO (09:47)
[2024-06-04] MEDS: ATORVASTATIN CALCIUM 40 MG TABLET 80 MG PO (09:47)
[2024-06-04] MEDS: CLOPIDOGREL BISULFATE 75 MG TABLET PO (09:47)
[2024-06-04] MEDS: CARVEDILOL 6.25 MG TABLET PO (09:48)
[2024-06-04] MEDS: FAMOTIDINE 20 MG TABLET 40 MG PO (09:48)
[2024-06-04] MEDS: CETIRIZINE HCL 10 MG TABLET 20 MG PO (09:48)
[2024-06-04] MEDS: LISINOPRIL 5 MG TABLET 2.5 MG PO (09:48)
[2024-06-04] MEDS: POTASSIUM CHLORIDE 10 MEQ ER TABLET 40 MEQ PO (09:49)
[2024-06-04] MEDS: FUROSEMIDE 40 MG TABLET PO (09:49)
[2024-06-04] MEDS: SPIRONOLACTONE 25 MG TABLET PO (09:49)
--- NOTE | 2024-06-04 10:54 | P.DS_ITS ---
DS: Providers Provider Date of admission: 06/03/24 12:00 Primary care physician: [facility] DS: Diagnosis Discharge Diagnosis (1) Hypoxia: (2) COVID: (3) Acute on chronic respiratory failure with hypoxia: (4) Acute exacerbation of chronic obstructive pulmonary disease: Plan Patient: Fever, sinus tachycardia, respiratory distress, normal white blood count, but with left shift consistent with bacterial process, hyponatremia, hyperglycemia all secondary to acute COVID-19 causing acute exacerbation of COPD with mild hypoxia. Patient also with chest pain. Acute COVID-19 resulting in a hypoxia with acute exacerbation of COPD- with chest pain-chest pain improved, CTA negative for pulmonary embolism Sinus tachycardia secondary to the acute [id number] at the time of discharge Hyponatremia-improving at the time of discharge Hypermagnesemia-stable at the time of discharge Hypercholesterolemia-continue with home medications Hypertension-continue with home medications Hyperglycemia secondary to acute [id number]-12-kevdwiz daily Admission findings: Patient admitted initially to observation, having failed the observational time. Will change patient to inpatient status as medically necessary treatment will span 2 midnights with acute COVID-19 with hypoxia causing acute exacerbation of COPD ? DS: Summary Hospital Course Hospital Course: Patient was seen and evaluated in the emergency room with increasing shortness of breath. Found to have acute exacerbation of COPD secondary to acute COVID- 19. Treated initially with steroids and aerosol treatments, those were changed to inhalers based on protocol, had chest pain more the following day so CTA was completed showed no pulmonary embolism. Had significant hypoxia overnight that first night, he was outside of the window for starting remdesivir, antibiotics were initiated, he with a dose of steroids and the antibiotics, he is improved today. Still some shortness of breath. He is resting in bed comfortably without supplemental oxygen. He does have home oxygen that he uses just at bedtime. He is much improved today compared to previous day, but suspecting at least another 1 to 2-day hospitalization but patient feels improved, no longer hypoxic at rest, suspect he will be hypoxic with ambulation the patient feels comfortable going home since he has supplemental oxygen at home. White blood cell count elevation today, likely secondary to steroid use. He will follow-up closely with his PCP. Medications see list. Time spent discussing smoking cessation with patient: more than 10 minutes Status at Discharge Overall status at discharge: patient is not back to baseline Time Spent with Patient Time attestation: Total time spent providing and/or coordinating discharge services: Exam Constitutional Vital Signs, click to edit/add: Last Vital Signs Temp 97.6 F 06/04/24 07:54 Pulse 92 H 06/04/24 10:00 Resp 20 06/04/24 07:54 BP 104/70 06/04/24 07:54 Pulse Ox 92 L 06/04/24 07:54 O2 Del Method Nasal Cannula 06/04/24 07:54 O2 Flow Rate 2 06/04/24 07:54 Documenting provider has reviewed patient's vital signs: yes Common normals: no apparent distress Lymph Lymphatic: no lymphadenopathy noted Chest Common normals: inspection of chest normal and palpation of chest normal Respiratory Common normals: normal respiratory effort and no retractions Auscultation: rhonchi (Improved air exchange and less rhonchi today) DS: Data Data Completed and Pending Labs on day of discharge: Labs from last 24 hours 06/04/24 06/03/24 06/03/24 06:16 20:39 15:33 WBC 12.6 H RBC 4.28 L Hgb 14.9 Hct 43.8 MCV 102.3 H MCH 34.8 H MCHC 34.0 RDW 13.5 Plt Count 194 MPV 10.0 Neut % (Auto) 91.7 H Lymph % (Auto) 3.[address] [place] % (Auto) 3.8 Eos % (Auto) 0.0 L Baso % (Auto) 0.1 L Neut # (Auto) 11.6 H Lymph # (Auto) 0.[address] [place] # (Auto) 0.5 Eos # (Auto) 0.0 Baso # (Auto) 0.0 Abs Immat Gran (auto) 0.06 H Imm/Tot Granulo (auto) 0.5 Sodium 137 Potassium 5.1 Chloride 103 Carbon Dioxide 19.9 L Anion Gap 19.2 BUN 35.0 H Creatinine 1.68 H Est GFR ( Amer) 51 L Est GFR (Non-Af Amer) 42 L BUN/Creatinine Ratio 20.8 Glucose 220 H Calcium 8.6 Total Bilirubin 0.8 AST 18 ALT 21 Alkaline Phosphatase 95 Total Protein 7.0 Albumin 2.9 L Globulin 4.1 Albumin/Globulin Ratio 0.7 POC Glucose 263 H 182 H 06/03/24 11:16 WBC RBC Hgb Hct MCV MCH MCHC RDW Plt Count MPV Neut % (Auto) Lymph % (Auto) [place] % (Auto) Eos % (Auto) Baso % (Auto) Neut # (Auto) Lymph # (Auto) [place] # (Auto) Eos # (Auto) Baso # (Auto) Abs Immat Gran (auto) Imm/Tot Granulo (auto) Sodium Potassium Chloride Carbon Dioxide Anion Gap BUN Creatinine Est GFR ( Amer) Est GFR (Non-Af Amer) BUN/Creatinine Ratio Glucose Calcium Total Bilirubin AST ALT Alkaline Phosphatase Total Protein Albumin Globulin Albumin/Globulin Ratio POC Glucose 198 H Discharge Plan Discharge Disposition: Home, Self-Care Condition: Good Discharge Medications: New prednisone 10 mg tablet 50 mg PO DAILY Qty: 47 0RF Rx Instructions: 5/day for 3 days. 4/day for 3 days, 3/day for 3 days, 2/day for 3 days, 1/day for 3 days, 1/2 /day for 4 days cefdinir 300 mg capsule 600 mg PO DAILY Qty: 20 0RF Continued carvedilol 6.25 mg tablet 6.25 mg PO BID Rx Instructions: must administer with a meal/food spironolactone [Aldactone] 25 mg tablet 25 mg PO QDAY lisinopril 2.5 mg tablet 2.5 mg PO DAILY levothyroxine [Euthyrox] 200 mcg tablet 200 mcg PO DAILY clopidogrel 75 mg tablet 75 mg PO DAILY aspirin 81 mg capsule 81 mg PO DAILY atorvastatin 80 mg tablet 80 mg PO DAILY furosemide 40 mg tablet 40 mg PO DAILY albuterol sulfate 90 mcg/actuation aerosol powdr breath activated 2 inh inhalation Q4H PRN (Reason: shortness of breath) potassium chloride [Klor-Con M20] 20 mEq tablet,ER particles/crystals 40 meq PO DAILY Activity: increase activity as tolerated Diet: advance to your usual diet Print Language: Italian Patient Instructions: Prednisone (By mouth), Cefdinir (By mouth), COPD (Chronic Obstructive Pulmonary Disease) (DC), COVID-19 and Chronic Health Conditions (DC) Forms: Portal Instructions Follow Up Appointments: call Dr. Cuellar tomorrow to make follow up appointment for within the week # Discharge Date/Time: 06/04/24 12:47
[2024-06-04] MEDS: FLUTICASONE PROPIONATE HFA 110 MCG INHALER 120 PUFF/12 GM IH (12:15)
--- NOTE | 2024-06-06 13:18 | CM.DCFOLLOWU ---
Person spoke with: Eliceo How are you feeling? Better How is your pain? No pain Did you understand your discharge instructions? Yes Do you have any questions about your discharge instructions? No Were you given any prescriptions at discharge? Yes Were you able to get your prescriptions filled? Yes Do you understand how to take your medications as ordered? Yes Do you have any questions about your follow up appointment and do you plan to keep your follow up appointment? I am going to call and schedule this week Is there anything else that you would like to discuss? Questions/Comments/Concerns/Other:
== END 2024-06-04 12:47 | disposition home or self-care (01) | DRG 137 ==
LOC: ER 15:48 → MS 16:45
PROVIDERS: Internal Medicine; Physician Assistant; Admitting Provider Family Medicine; Emergency Provider Emergency Medicine; Visit Provider Family Medicine
DX: U07.1 COVID-19 (principal); J44.1 Chronic obstructive pulmonary disease with (acute) exacerbation; E66.01 Morbid (severe) obesity due to excess calories; E78.5 Hyperlipidemia, unspecified; I11.0 Hypertensive heart disease with heart failure; I50.30 Unspecified diastolic (congestive) heart failure; I25.10 Atherosclerotic heart disease of native coronary artery without angina pectoris; J96.21 Acute and chronic respiratory failure with hypoxia; R00.0 Tachycardia, unspecified; E87.1 Hypo-osmolality and hyponatremia; R73.9 Hyperglycemia, unspecified; R07.9 Chest pain, unspecified; E83.41 Hypermagnesemia; E78.00 Pure hypercholesterolemia, unspecified; Z90.49 Acquired absence of other specified parts of digestive tract; Z98.890 Other specified postprocedural states; Z95.5 Presence of coronary angioplasty implant and graft; Z87.891 Personal history of nicotine dependence; Z79.82 Long term (current) use of aspirin; Z79.890 Hormone replacement therapy; Z79.899 Other long term (current) drug therapy; Z99.81 Dependence on supplemental oxygen; Z68.38 Body mass index [BMI] 38.0-38.9, adult
CPT/HCPCS: 36415; 71046; 71275; 80053; 82948; 83605; 83735; 83880; 84484; 85025; 85610; 87040; 87070; 87804; 87811; 93005; 94640; 94761; 96374; 96375; 99285; 99406; G0378; J0456; J0696; J1650; J1885; J2270; J2405; J2919; Q9967

== ENCOUNTER 2025-06-10 15:00 | Inpatient (IN) | payer MEDICAID, SELFPAY ==
[2025-06-10] VITALS (8 sets, daily range): BP systolic 115–135; BP diastolic 72–94; PULSE 89–139; TEMP 36.7–37.3; O2SAT 92–98; BMI 33.9; BMI 35.8
--- NOTE | 2025-06-10 15:14 | ECG_ITS ---
[facility] Test Date: 2025-06-10 Pat Name: BO KENNY Department: Room: - Gender: Male [employer]: : 1965 Requested By: Omar Jensen Order Number: [id number] Reading MD: KIRSTIE TAPIA M.D. Measurements Intervals [place] Rate: 95 P: 60 NM: 166 QRS: -24 QRSD: 118 T: 56 QT: 372 QTc: 425 Interpretive Statements 1100 Sinus rhythm 2320 Nonspecific intraventricular conduction delay 7202 Moderate left axis deviation 8102 Low QRS voltage in chest leads 9130 borderline ECG Compared to ECG 06/02/2024 14:19:04 Low QRS voltage now present Sinus tachycardia no longer present Ventricular premature complex(es) no longer present Electronically Signed On 06-10-2025 18:43:09 EST by KIRSTIE TAPIA M.D.
--- NOTE | 2025-06-10 15:14 | XR_ITS ---
The [address] [address] Patient Name: BO KENNY MRN: [id number] date: 1965 Sex: M Assigned Patient Location: ER Current Patient Location: ED.MAIN Accession/Order Number: [id number] Exam Date: 06/10/2025 15:22 Report Date: 06/10/2025 15:56 At the request of: KEVYN FAY Procedure: XR chest 1V Plain film chest Single view HISTORY: Cough and fever. COMPARISON: None FINDINGS: SUPPORT DEVICES: None POSTSURGICAL CHANGES: None HEART: Within normal limits PULMONARY TATI: Within normal limits MEDIASTINUM: Unremarkable LUNGS AND PLEURA: No acute lung process, pleural effusion or pneumothorax identified. BONY STRUCTURES: Intact ADDITIONAL FINDINGS None XR/XR chest 1V IMPRESSION: No acute process. Impression dictated by: Los Martinez M.D. 06/10/2025 3:56 PM Dictation Location: [place] [address] Electronically authenticated by: [id number] Y Date: 06/10/2025 15:56
[2025-06-10] MEDS: DILTIAZEM HCL 25 MG/5 ML VIAL 10 MG IV (15:32)
[2025-06-10] MEDS: 0.9 % SODIUM CHLORIDE 1,000 ML 1000 ML IV (15:34)
--- NOTE | 2025-06-10 15:34 | ED.SOB1 ---
HPI - SOB/Dyspnea General Chief Complaint: Shortness of Breath/Dyspnea Stated Complaint: SOB Time Seen by Provider: 06/10/25 15:03 Source: patient Mode of arrival: walk-in History of Present Illness HPI Narrative: cc - shortness of breath Pt with CHF and COPD presents with cough and shortness of breath and low grade fever at home. No chest pain. He had some nausea and vomited this morning after taking his AM meds. No flank pain or abdominal pain. Related Data Home Medications ?Medication ?Instructions ?Recorded ?Confirmed aspirin 81 mg capsule 81 mg PO DAILY 05/01/24 06/10/25 atorvastatin 80 mg tablet 80 mg PO DAILY 05/01/24 06/10/25 clopidogrel 75 mg tablet 75 mg PO DAILY 05/01/24 06/10/25 furosemide 40 mg tablet 40 mg PO DAILY 05/01/24 06/10/25 levothyroxine 200 mcg tablet 200 mcg PO DAILY 05/01/24 06/10/25 (Euthyrox) lisinopril 2.5 mg tablet 2.5 mg PO DAILY 05/01/24 06/10/25 spironolactone 25 mg tablet 25 mg PO QDAY 05/01/24 06/10/25 (Aldactone) albuterol sulfate 90 mcg/actuation 2 inh inhalation Q4H PRN shortness 05/02/24 06/10/25 breath activated powder inhaler of breath amlodipine 5 mg tablet 5 mg PO QDAY 06/10/25 06/10/25 budesonide-formoterol HFA 160 2 inh inhalation Q12H 06/10/25 06/10/25 mcg-4.5 mcg/actuation aerosol inhaler (Symbicort) ezetimibe 10 mg tablet 10 mg PO QDAY 06/10/25 06/10/25 metoprolol succinate 100 mg 150 mg PO QDAY 06/10/25 06/10/25 tablet,extended release 24 hr ondansetron 4 mg disintegrating 4 mg translingual QDAY 06/10/25 06/10/25 tablet tiotropium bromide 2.5 2 puff inhalation Q24H 06/10/25 06/10/25 mcg/actuation mist for inhalation (Spiriva Respimat) trazodone 50 mg tablet 50 mg PO .qhs 06/10/25 06/10/25 Allergies Allergy/AdvReac Type Severity Reaction Status Date / Time Penicillins Allergy Anaphylaxis Verified 06/10/25 15:04 [facility] Medical History (Updated 06/10/25 @ 16:36 by Omar Jensen) Diverticulitis large intestine w/o perforation or abscess w/bleeding ?K57.33 - Diverticulitis of large intestine without perforation or abscess with bleeding (ICD-10) Hypoxia ?R09.02 - Hypoxemia (ICD-10) COVID ?U07.1 - COVID-19 (ICD-10) Acute on chronic respiratory failure with hypoxia ?J96.21 - Acute and chronic respiratory failure with hypoxia (ICD-10) Acute exacerbation of chronic obstructive pulmonary disease ?J44.1 - Chronic obstructive pulmonary disease with (acute) exacerbation (ICD-10) Morbid obesity ?E66.01 - Morbid (severe) obesity due to excess calories (ICD-10) Current smoker ?F17.200 - Nicotine dependence, unspecified, uncomplicated (ICD-10) HLD (hyperlipidemia) ?E78.5 - Hyperlipidemia, unspecified (ICD-10) (HFpEF) heart failure with preserved ejection fraction ?I50.30 - Unspecified diastolic (congestive) heart failure (ICD-10) HTN (hypertension) ?I10 - Essential (primary) hypertension (ICD-10) CAD (coronary artery disease) ?I25.10 - Atherosclerotic heart disease of [place] coronary artery without angina pectoris (ICD-10) Surgical History (Updated 06/02/24 @ 16:48 by Yudy James) History of ankle surgery ?Z98.890 - Other specified postprocedural states (ICD-10) Hx of appendectomy ?Z90.49 - Acquired absence of other specified parts of digestive tract (ICD-10) Hx of colostomy H/O heart artery stent ?Z95.5 - Presence of coronary angioplasty implant and graft (ICD-10) Family History (Updated 06/02/24 @ 16:49 by Yudy James) Nephew No problems noted. Mother Family history of COPD (chronic obstructive pulmonary disease) Family history of cancer Family history of hypertension Family history of stroke Social History (Updated 06/02/24 @ 16:50 by Yudy James) Within the past year, how often did you have a drink containing alcohol: monthly or less Within the past year, how often did you have six or more drinks on one occasion: less than monthly Smoking status: Former smoker Second hand tobacco smoke exposure: No Non-prescribed substance use: denies use Previous occupational history: retired Highest level of school completed/degree received: GED or equivalent Little interest or pleasure in doing things: not at all Feeling down, depressed, or hopeless: not at all Feel stressed/tense/nervous/anxious/difficulty sleeping: not at all Do you think of yourself as: straight/heterosexual Gender Identity: male Exam Narrative Exam Narrative: Nurses notes and vital signs reviewed and patient is not hypoxic. afebrile General: Well-appearing and in no apparent distress. Skin: Warm, dry, no pallor noted. Head: Normocephalic, atraumatic. Neck: Supple, non-tender. No cervical adenopathy. No meningismus. Eye: Pupils are equal, round and EOMI. No scleral icterus. Ears, Nose, Mouth, and Throat: Oral mucosa is slightly dry. Cardiovascular: Regular Rate and Rhythm without murmur, gallop or rub. Respiratory: No accessory muscle use or respiratory distress. Lungs with scattered rhonchi and bibasilar rales. Chest Wall: no tenderness, crepitus or subcutaneous emphysema Back: No CVA tenderness Musculoskeletal: normal ROM, no calf or popliteal tenderness, no lower extremity edema/swelling GI: Abdomen is soft, non-distended. Normal bowel sounds. No tenderness to palpation. No rebound, guarding, or rigidity noted. Neurological: A&O x4. No cranial nerve dysfunction observed. No truncal ataxia. Moves all extremities. Sensation intact. Psychiatric: Cooperative and interactive. Normal mood and affect. Constitutional Vital Signs, click to edit/add: Last Vital Signs Temp 99.1 F 06/10/25 15:04 Pulse 106 H 06/10/25 16:33 Resp 24 H 06/10/25 15:04 BP 134/91 06/10/25 16:33 Pulse Ox 98 06/10/25 16:33 O2 Del Method Room Air 06/10/25 15:04 Course Vital Signs Vital signs: Vital Signs Temperature 99.1 F 06/10/25 15:04 Pulse Rate 139 H 06/10/25 15:04 Respiratory Rate 24 H 06/10/25 15:04 Blood Pressure 124/94 H 06/10/25 15:04 Pulse Oximetry 97 06/10/25 15:04 Oxygen Delivery Method Room Air 06/10/25 15:04 Temperature 99.1 F 06/10/25 15:04 Pulse Rate 106 H 06/10/25 16:33 Respiratory Rate 24 H 06/10/25 15:04 Blood Pressure 134/91 06/10/25 16:33 Pulse Oximetry 98 06/10/25 16:33 Oxygen Delivery Method Room Air 06/10/25 15:04 MDM - SOB/Dyspnea MDM Narrative Medical decision making narrative: Patient was placed on campus monitor and EKG obtained. Blood drawn and sent for evaluation. Portable chest x-ray obtained. White blood cell count minimally elevated at 13. Left shift noted. COVID and influenza negative. Chest x-ray was unremarkable and no pneumonia or other worrisome cardiopulmonary abnormalities identified. Troponin and BNP were negative. The patient's metabolic panel was notable for a markedly elevated creatinine at 3.54. The patient did admit that he has not been able to keep down fluids recently. The patient's heart rate improved after receiving IV Cardizem and on recheck at 1600, with his heart rate improved, he said he felt much better. Repeat EKG reveals patient to be in normal sinus rhythm. Call placed to the hospitalist to discuss this patient's renal function and inability to take PO liquids - discussed admitting the patient on an observation basis. Dr. Oates said that he would be willing to admit the patient on observation basis to [facility] but asked that the ED nurse obtain a bladder scan to evaluate the patient for urinary retention since his creatinine dramatically elevated. I let Dr. Oates know that the ED nurse was unable to get a reading on the bladder scanner -the patient had a colostomy which was moved from 1 side to the other and he has a vertical scar in that area, which may be inhibiting the ability of the scanner to find them evaluate the bladder. maintenance mechanic technician is in the facility for another patient and I talked to her about getting a bilateral renal ultrasound, at the request of Dr. Oates. . Lab Data Attestation: I reviewed the patient's lab results. Labs: Lab Results 06/10/25 06/10/25 Range/Units 15:13 15:20 WBC 13.0 H (4.0-11.0) 10^3/uL RBC 4.75 (4.70-6.10) 10^6/uL Hgb 15.8 (14.0-18.0) g/dL Hct 46.3 (42.0-54.0) % MCV 97.5 H (80.0-94.0) fL MCH 33.3 (25.9-34.0) pg MCHC 34.1 (29.9-35.2) g/dL RDW 12.1 (11.0-15.0) % Plt Count 212 (150-450) 10^3/uL MPV 9.9 (9.5-13.5) fL Neut % (Auto) 84.5 H (43.0-75.0) % Lymph % (Auto) 7.7 L (20.5-60.0) % [place] % (Auto) 7.1 (1.7-12.0) % Eos % (Auto) 0.2 L (0.9-7.0) % Baso % (Auto) 0.2 (0.2-2.0) % Neut # (Auto) 11.0 H (1.4-6.5) 10^3/uL Lymph # (Auto) 1.0 L (1.2-3.8) 10^3/uL [place] # (Auto) 0.9 H (0.3-0.8) 10^3/uL Eos # (Auto) 0.0 (0.0-0.7) 10^3/uL Baso # (Auto) 0.0 (0.0-0.1) 10^3/uL Abs Immat Gran (auto) 0.04 H (0.00-0.03) 10^3/uL Imm/Tot Granulo (auto) 0.3 (0.0-0.5) % Sodium 139 (136-145) mmol/L Potassium 4.1 (3.5-5.1) mmol/L Chloride 102 (98-107) mmol/L Carbon Dioxide 21.2 (21.0-32.0) mmol/L Anion Gap 19.9 BUN 32.0 H (7.0-18.0) mg/dL Creatinine 3.54 H (0.70-1.30) mg/dL Est GFR ( Amer) 22 L (>=60 mL/min/1.73m^2) Est GFR (Non-Af Amer) 18 L (>=60 mL/min/1.73m^2) BUN/Creatinine Ratio 9.0 Glucose 135 H (74-106) mg/dL Lactate 1.7 (0.4-2.0) mmol/L Calcium 9.6 (8.5-10.1) mg/dL Troponin I High Sens 10.4 (4.0-76.1) pg/mL NT-Pro-B Natriuret Pep 112.0 (<=900.0) pg/mL Influenza Type A Ag Negative Influenza Type B Ag Negative SARS-CoV-2 Ag (CV2AG) Negative (NEGATIVE) Imaging Data Chest x-ray: Attestation: I have reviewed the pertinent imaging results. Radiologist's impression: ITS Impressions Chest X-Ray 06/10/25 15:14 IMPRESSION: No acute process. Impression dictated by: Los Martinez M.D. 06/10/2025 3:56 PM Dictation [facility] Electronically authenticated by: [id number] Y Date: 06/10/2025 15:56 ECG Data Attestation: I personally reviewed and interpreted this ECG as follows: Interpretation: EKG interpretation:Emergency Department physician interpretation.rapid atrial fibrillation at 130bpm.left axis deviation. Pulmonary disease pattern. No ST segment elevation or depression. #2 EKG after Cardizem administration. EKG interpretation:Emergency Department physician interpretation.Normal sinus rhythm at 95bpm.moderate left axis deviation. Nonspecific changes with no ST segment elevation or depression. Discharge Plan Discharge Chief Complaint: Shortness of Breath/Dyspnea Clinical Impression: Atrial fibrillation with rapid ventricular response, Acute infective exacerbation of chronic obstructive airway disease, Acute kidney injury, Intractable vomiting Patient Disposition: Admitted as Observation Time of Disposition Decision: 16:36
--- OUTSIDE RECORDS SUMMARY | 2025-06-10 15:45 | XMS_ITS | CCD ---
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 Aaron Ocampo II Attending Unavaila lory MOY Dr. PCP Primary Care Unavailable DO Carmine Jackson Attending Provider [phone] DO Medhat Baltazar Referring Provider DO Medhat Baltazar Referring Provider MD Carolyn Dugan Attending Provider [phone] DO Medhat Baltazar Attending Provider FAMILY, HEALTH SERVICES Primary Care Unavaila SHAIKH Rasheed Orellana Admitting Unavailable SHAIKH Rasheed JEAN Attending Unavailable DR CAROLYN REDDY V Consulting Unavailable PAY, DR RENDON Consulting Unavailable SUREKHA QUESADA Consulting Unavailable SHAIKH Rasheed JEAN Consulting Unavailable TRACI HTACKER Consulting Unavailable CAROLYN TRACY Consulting Unavailable VICTORIANO MCFARLAND Consulting Unavailable FAMILY, HEALTH SERVICES Primary Care Unavaila JUANITA Gunter Admitting Unavailable JUANITA PERLA Attending Unavailable LINDA CAMPBELL Consulting Unavailable MARKER, DR MOORE Consulting Unavailable CLAIR RAMIREZ Consulting Unavailable JUANITA PERLA Consulting Unavailable SAM, SAV Admitting Unavailable SAMSA SAV Attending Unavailable [facility] Primary Care Unavaila ble Tawnya Pepper Primary Care Provider Felipa PAEZCarlana Unavailable [phone] Diogo SOLIS, PhD, Manjula Putnam Unavailable [phone] McGuinn II, Aaron Dentonrick Referring Unav ailable McGuinn II, Aaron Christiansen Attending Unav ailable UNKNOWN, PCP Primary Care Unavailable UNKNOWN, PCP Primary Care Unavailable McGuinn II, Aaron Christiansen Referring Unav ailable McGuinn II, Aaron Christiansen Attending Unav ailable Lowrie, Uatsdin Consulting Unavailable [facility] Primary Care Unavaila ble Mast, Shane Attending Unavailable Mast, Shane Admitting Unavailable Carolyn Dugan Attending Unavailable Carolyn Dugan Admitting Unavailable LowrieMedhat Referring Unavailable Lowrie, Uatsdin Referring Unavailable Steve Jacksonew Viv Attending Unavailable Carmine Jackson Admitting Unavailable AMBER CUELLAR Primary Care Physician [phone] Tawnya Pepper Primary Care Provider Felipa PAEZCee Unavailable [phone] Diogo SOLIS, PhD, Manjula Putnam Unavailable Steve SOLIS, Vanessa Unavailable [phone] PROVIDER, UNKNOWN Attending Unavailable PROVIDER, UNKNOWN Admitting Unavailable TAWNYA PEPPER Primary Care Unavailable Amber Cuellar DO Primary Care Provider [phone] Blanco Lazcano Attending Unavailable Blanco Lazcano Referring Unavailable Blanco Lazcano Admitting Unavailable Blanco Lazcano Attending Unavailable Blanco Lazcano Admitting Unavailable NONE, XXXX Referring Unavailable MD Blanco Lazcano Attending Unavailable MD Blanco Lazcano Consulting Unavailable MD Blanco Lazcano Admitting Unavailable MD Blanco Lazcano Referring Unavailable MD Blanco Lazcano Attending Unavailable Blanco Lazcano Consulting Unavailable Blanco Lazcano Consulting Unavailable MD Blanco Lazcano Attending Unavailable MD Blanco Lazcano Admitting Unavailable MD Blanco Lazcano Attending Unavailable NONE, XXXX Referring Unavailable MD Blanco Lazcano Admitting Unavailable LakesideAmber mcclure DO L Unavailable CUTLERRENOAMBER L Attending Unavailable MISTI PARDO Attending Unavailable AMBER CUELLAR L Referring Unavailable Juan Francisco Johnson Attending Unavailable NONE, XXXX Referring Unavailable Juan Francisco Johnson Attending Unavailable NONE, XXXX Referring Unavailable Juan Francisco Johnson Admitting Unavailable Blanco Lazcano Admitting Unavailable Blanco Lazcano Attending Unavailable Blanco Lazcano Referring Unavailable Juan Francisco Johnson Attending Unavailable NONE, XXXX Referring Unavailable Allergies Allergy ClassificationReported Allergen(s)Allergy TypeDate of OnsetReaction(s) Facility (20 sources)Penicillins; Translations: [Penicillins]Allergy to drug (finding) 94-21-8046Nzlymimhms Breathing, Reaction (qualifier value)[facility] Teressa [address] DO Work Phone: (17 sources)Morphine; Translations: [MORPHINE]Drug Flasqew83-75-8692Ptyqstmhc, Other, [facility]inessMet[facility] Work Phone: (1 source)MorphineDrug AllergyThe [facility] Repository (1 source)PenicillinDrug AllergyThe [facility] Repository (9 sources)Penicillins; Translations: [penicillins]Propensity to adverse reactions to cdek66-23-9366Bhfzhsgnhm Breathing, Reaction (qualifier value) [facility] ([facility] source)PenicillinsDrug allergy (disorder)93-34-8522DpkkhetgcUk [facility] Repository (9 sources)Penicillin GDrug Gzxzvpi93-51-2169VfuitukuaddFEYQ Healthcare Medications Current Medications MedicationDrug Class(es)DatesSig (Normalized)Sig (Original)acetaminophen 325 mg / HYDROcodone bitartrate 5 mg oral tablet (20 sources)Opioid AgonistStart: 04-03-2020 End: 83-72-1930ldtw 1 tablet by mouth every six hoursHydrocodone-Acetaminophen Active 5 - 325 TAB PO Every 6 hours April 02, 2020 11:51uscql254485 200 actuat albuterol 0.09 mg/actuat metered dose inhaler (20 sources)beta2-Adrenergic AgonistStart: 71-58-0387lymj 2 puff(s) by inhalation every four hours for wheezingalbuterol HFA 90 mcg/act inhaler Indications: Chronic obstructive pulmonary disease, unspecified COPD type (HCC) INHALE 2 PUFFS EVERY 4 HOURS IF NEEDED FOR WHEEZING. 18 g 5 02/21/2025 Active Start: 05-05-2024 End: 16-70-4639zoif 2 puff(s) by inhalation every four hours for wheezing albuterol HFA 90 mcg/act inhaler Indications: Chronic obstructive pulmonary disease, unspecified COPD type (HCC) Inhale 2 puffs every 4 (four) hours if needed for wheezing 18 g 5 05/05/2024 02/21/2025 DiscontinuedStart: 11-25-2022 albuterol Refills(s) 0 Start Date: 11/25/22 Status: Ordered Repeat number: 1Start: 28-74-0103clftfamks Refills(s) 0 Start Date: 11/25/22 Status: OrderedStart: 80-35-4695ozgt 1 puff(s) by inhalation every four hoursAlbuterol Sulfate (Proair Hfa) 90 mcg/actuation HFA aerosol inhaler Active 2 PUFF INHALATION Q4H July 04, 2019 4:12pmStart: 07-26-2018 End: 54-16-6323ocjq 2.5 mg by inhalation every eight hoursAlbuterol Sulfate Discontinued 2.5 MG INHALATION Q8H 90 July 26, 2018 12:00am September 07, 2019 2:50pmStart: 06-06-2018 End: 21-52-7908Razrmonro Sulfate (Proair Hfa) 90 mcg/actuation HFA aerosol inhaler Discontinued 1 INH INHALATION Q6H 6.7 June 14, 2018 12:59pm July 04, 2019 4:12pmalbuterol (2.5 MG/3ML) 0.083% nebulizer solution every 6 (six) hours. Activealbuterol HFA 90 mcg/act inhaler every 4 (four) hours. Activetake 2 puff(s) by mouth every six hours as needed for wheezingalbuterol (PROVENTIL HFA) INHALATION HFA inhaler (VENTOLIN,PROAIR,PROVENTIL) 90mcg Inhale 2 Puffs by mouth every 6 hours as needed for Wheezing or Shortness of Breath. Activetake 1-2 puff(s) by inhalation every four to six hours as neededVentolin HFA 108 (90 Base) MCG/ACT Inhalation Aerosol Solution INHALE 1 TO 2 PUFFS EVERY 4 TO 6 HOURS NEEDED. Quantity: 0 Refills: 0 Ordered: 07-Jul-2021 DO Active amiodarone hydrochloride 200 mg oral tablet (10 sources)AntiarrhythmicStart: 88-67-8468horo 2 tablets by mouth once daily Amiodarone (Pacerone) 200 mg tablet Active 400 MG PO Daily April 03, 2020 2:28pmStart: 07-07-2019 End: 66-70-4505csuu 200 mg by mouth once dailyAmiodarone Discontinued 200 MG PO Daily 60 July 07, 2019 2:42pm April 03, 2020 2:29pmStart: 06-14-2018 End: 17-15-2626wipq 400 mg by mouth once dailyAmiodarone Discontinued 400 MG PO Daily 60 June 14, 2018 12:00am July 07, 2019 2:48pmStart: 06-06-2018 End: 65-21-7443rezj 400 mg by mouth twice dailyAmiodarone Discontinued 400 MG PO Twice daily 120 June 06, 2018 12:00am June 14, 2018 12:53pm amLODIPine 5 mg oral tablet (4 sources)Dihydropyridine Calcium Channel BlockerStart: 96-48-6051hqyz 1 tablet by mouth once dailyNorvasc 5 mg Tab 5 mg = 1 tab(s), Oral, Daily, # 30 tab(s), Refills(s) 6, Pharmacy: [facility]/pharmacy #[id number], 167, cm, 08/24/24 13:40:00 EST, Height/Length Dosing, 111, kg, 08/24/24 13:46:00 EST, Weight Dosing Start Date: 08/24/24 Status: Ordered Quantity: 30.0 Unit: tab(s) Repeat number: 7aspirin 81 mg delayed release oral tablet (20 sources)Platelet Aggregation Inhibitor, Nonsteroidal Anti-inflammatory Drug Start: 93-87-7493cjwo 1 tablet by mouth once dailyaspirin 81 mg Oral EC Tab 81 mg = 1 tab(s), Oral, Daily, # 30 tab(s), Refills(s) 0 Start Date: 11/25/22 Status: Ordered Quantity: 30.0 Unit: tab(s) Repeat number: 1Start: 62-96-4947ykqw 1 tablet by mouth once dailyAspirin Low Dose 81 MG Oral Tablet Delayed Release TAKE 1 TABLET BY MOUTH EVERY DAY Quantity: 30 Refills: 0 Ordered: 17-Aug-2022 Aaron Ocampo MD Start : 16-May-2020 ActiveStart: 06-06-2018 End: 13-58-8583vdrq 1 tablet by mouth once dailyAspirin Low Dose 81 MG Oral Tablet Delayed Release TAKE 1 TABLET BY MOUTH EVERY DAY Quantity: 90 Refills: 3 Ordered: 07-Jan-2022 Aaron Ocampo MD Start : 16-May-2020 ActiveASPIRIN 81 MG chewable tablet 1 (one) time each day at the same time. Activetake 1 tablet by mouth once dailyaspirin 81 MG tablet Take 81 mg by mouth daily. Active atorvastatin 80 mg oral tablet (20 sources)HMG-CoA Reductase InhibitorStart: 28-50-4581dwez 1 tablet by mouth once dailyatorvastatin 80 mg Tab 80 mg = 1 tab(s), Oral, Daily, # 30 tab(s), Refills(s) 5, Pharmacy: [facility]/pharmacy #[id number], 167, cm, 05/24/24 13:49:00 EDT, Height/Length Dosing, 110.8, kg, 05/24/24 13:49:00 EDT, Weight Dosing Start Date: 05/26/24 Status: Ordered Quantity: 30.0 Unit: tab(s) Repeat number: 6Start: 92-06-6402aprn 1 tablet by mouth once daily at bedtimeAtorvastatin Calcium 80 MG Oral Tablet TAKE 1 TABLET BY MOUTH EVERYDAY AT BEDTIME Quantity: 90 Refills: 3 Ordered: 19-Aug-2022 Aaron Ocampo MD Start : 21-Jul-2021 ActiveStart: 06-06-2018 End: 08-84-9087dlmi 80 mg by mouth once daily in the eveningAtorvastatin Discontinued 80 MG PO Every evening June 14, 2018 12:00am April 03, 2020 2:29pm60 actuat budesonide 0.16 mg/actuat / formoterol fumarate 0.0045 mg/actuat metered dose inhaler (20 sources)Corticosteroid, beta2-Adrenergic AgonistStart: 62-01-7206xqqovwxujh- formoterol (Symbicort) 160-4.5 MCG/ACT inhaler Indications: Chronic obstructive pulmonary disease, unspecified COPD type (HCC) Inhale 2 puffs every 12 (twelve) hours 3 each 3 03/07/2025 ActiveStart: 30-15-3277hutk 2 puff(s) by mouth twice dailyBudesonide-Formoterol (Symbicort) 160-4.5 mcg/actuation HFA aerosol inhaler Active 2 PUFF INHALATION Twice daily April 02, 2020 11:00pm INHALE 2 PUFFS BY MOUTH TWICE A DAY *RINSE AFTER USE*Start: 00-85-9460tcnb 2 puff(s) by mouth twice dailySymbicort 160-4.5 MCG/ACT inhaler Inhale 2 Puffs by mouth 2 times daily. 03/14/2020 Active End: 88-00-2332Exgvorkug 160-4.5 MCG/ACT inhaler every 12 (twelve) hours. 03/07/2025 Discontinued (Reorder)carvedilol 6.25 mg oral tablet (20 sources)alpha-Adrenergic Filippo, beta-Adrenergic BlockerStart: 11-25-2022 take 1 tablet by mouth twice dailycarvedilol 6.25 mg Tab 6.25 mg = 1 tab(s), Oral, BID, # 60 tab(s), Refills(s) 5, Pharmacy: [facility]/pharmacy #[id number], 167, cm, 05/24/24 13:49:00 EDT, Height/Length Dosing, 110.8, kg, 05/24/24 13:49:00 EDT, W eight Dosing Start Date: 05/26/24 Status: OrderedStart: 06-06-2018 End: 55-01-9447isaj 1 tablet by mouth twice dailyCarvedilol 6.25 MG Oral Tablet take 1 tablet by mouth twice a day Quantity: 180 Refills: 3 Ordered:19-Aug-2022 Aaron Ocampo MD Start : 13-Oct-2021 Activeclopidogrel 75 mg oral tablet (20 sources)P2Y12 Platelet InhibitorStart: 81-25-0734kozx 1 tablet by mouth once dailyclopidogrel 75 mg Tab 75 mg = 1 tab(s), Oral, Daily, # 30 tab(s), Refills(s) 5, Pharmacy: [facility]/pharmacy #[id number], 167, cm, 05/24/24 13:49:00 EDT, Height/Length Dosing, 110.8, kg, 05/24/24 13:49:00 EDT, Weight Dosing Start Date: 05/26/24 Status: Ordered Quantity: 30.0 Unit: tab(s) Repeat number: 6Start: 31-22-0070mpjb 1 tablet by mouth once dailyClopidogrel Bisulfate 75 MG Oral Tablet TAKE 1 TABLET BY MOUTH EVERY DAY Quantity: 90 Refills: 3 Ordered: 19-Aug-2022 Aaron Ocampo MD Start : 21-Feb-2021 ActiveStart: 07-04-2019 End: 64-61-1912btkf 75 mg by mouth once dailyClopidogrel Discontinued 75 MG PO Daily July 04, 2019 12:00am September 07, 2019 2:50pmclotrimazole 10 mg oral lozenge (4 sources)Azole AntifungalStart: 04-03-2020 End: 04-36-3683Nuhsxtmlutww Active 10 MG MUCOUS MEM Four times daily April 02, 2020 11:00pmcyclobenzaprine hydrochloride 5 mg oral tablet (20 sources)Muscle RelaxantStart: 11-25-2022 End: 23-57-3862jrtftjwewaohltw 5 mg Tab Refills(s) 0 Start Date: 11/25/22 Status: Orderedtake 1 tablet by mouth three times daily as neededCyclobenzaprine HCl - 5 MG Oral Tablet TAKE 1 TABLET 3 TIMES DAILY NEEDED. Quantity: 0 Refills: 0 Ordered: 07-Jul-2021 DO Activeezetimibe 10 mg oral tablet (3 sources)Dietary Cholesterol Absorption InhibitorStart: 22-55-1130biop 1 tablet by mouth once dailyZetia 10 mg Tab 10 mg = 1 tab(s), Oral, Daily, # 30 tab(s), Refills(s) 6, Pharmacy: [facility]/pharmacy #[id number], 167, cm, 08/01/24 7:46:00 EST, Height/Length Dosing, 111, kg, 01/07/25 7:46:00 EST, Weight Dosing Start Date: 08/01/24 Status: Ordered Quantity: 30.0 Unit: tab(s) Repeat number: 7 furosemide 40 mg oral tablet (20 sources)Loop DiureticStart: 02-16-3742zcvx 1 tablet by mouth once daily furosemide 40 mg Tab 40 mg = 1 tab(s), Oral, Daily, # 30 tab(s), Refills(s) 0 Start Date: 11/25/22 Status: Ordered Quantity: 30.0 Unit: tab(s) Repeat number: 1 Start: 09-07-2019 End: 73-80-4764apxz 40 mg by mouth twice dailyFurosemide Discontinued 40 MG PO Twice daily 60 September 07, 2019 12:00am April 03, 2020 2:29pmStart: 11-19-2018 End: 28-16-4507sgkt 40 mg by mouth twice dailyFurosemide Discontinued 40 MG PO Twice daily November 18, 2018 11:00pm August 31, 2019 4:38amStart: 10-10-2018 End: 98-20-4540emtm 20 mg by mouth once dailyFurosemide Discontinued 20 MG PO Daily October 09, 2018 11:00pm November 19, 2018 5:50pmStart: 06-06-2018 End: 96-81-6922wran 40 mg by mouth twice dailyFurosemide Discontinued 40 MG PO BID@0800,1600 60 June 14, 2018 12:00am August 25, 201810:11am gabapentin 100 mg oral capsule (20 sources)Anti-epileptic AgentStart: 70-61-1935mwry 1 capsule by mouth three times dailygabapentin (NEURONTIN) 100 MG capsule Take 1 Capsule by mouth 3 times daily for 120 days. 90 Capsule 3 10/20/2020 Udvlco49 hr isosorbide mononitrate 30 mg extended release oral tablet (11 sources)Nitrate VasodilatorStart: 36-19-7444nprk 1 tablet by mouth once dailyIsosorbide Mononitrate Active 30 MG PO Daily April 02, 2020 11:00pm TAKE 1 TABLET BY MOUTH EVERY DAYStart: 07-04-2019 End: 80-63-0869ygcm 30 mg by mouth once dailyIsosorbide Mononitrate Discontinued 30 MG PO Daily July 04, 2019 12:00am August 31, 2019 4:41amisosorbide mononitrate (MONOKET) 10 MG tablet Take 30 mg by mouth daily. ActivelevoFLOXacin 500 mg oral tablet (4 sources)Quinolone AntimicrobialStart: 75-98-8158lbqp 500 mg by mouth once dailyLevofloxacin Active 500 MG PO Daily 01 29April 04, 2020 11:00pmStart: 11-19-2018 End: 03-91-4739txnp 750 mg by mouth once dailyLevofloxacin Discontinued 750 MG PO Daily November 18, 2018 11:00pm July 04, 2019 4:17pmlevothyroxine sodium 0.2 mg oral tablet (20 sources)l-ThyroxineStart: 03-86-9509wpud 1 tablet by mouth once daily levothyroxine 200 mcg (0.2 mg) Tab 200 mcg = 1 tab(s), Oral, Daily, # 30 tab(s), Refills(s) 0 StartDate: 11/25/22 Status: Ordered Quantity: 30.0 Unit: tab(s) Repeat number: 1Start: 11-85-3106igjw 1 tablet by mouth once daily at breakfast levothyroxine (SYNTHROID) 112 MCG tablet Take 1 Tablet by mouth daily (with breakfast). 30 Tablet Activelevothyroxine (Synthroid, Levoxyl) 200 MCG tablet 1 (one) time each day at the same time. Activetake 1 capsule by mouth once dailyLevothyroxine Sodium 112 MCG CAPS Take 112 mcg by mouth daily. Active take 1 tablet by mouth once dailyLevothyroxine Sodium 150 MCG Oral Tablet TAKE 1 TABLET DAILY. Quantity: 0 Refills: 0 Ordered: 07-Jul-2021 DO ActiveLidocaine (20 sources)Antiarrhythmic, Amide Local AnestheticStart: 95-11-4712qsfdibxjs 5% patch Refill(s) 0 Start Date: 11/25/22 Status: Ordered Repeat number: 1Start: 77-02-3237rjkdvroyk 5% patch Refill(s) 0 Start Date: 11/25/22 Status: Ordered Start: 23-23-5513cgynp 1 dose transdermal route once daily in the morning lidocaine (LIDODERM) 5 % patch Place 1 Patch on the skin every morning. 10 Patch 3 10/20/2020 Active End: 38-17-0048Wepracfnv 4 % patch 1 (one) time each day at the same time. 03/07/2025 DiscontinuedLidocaine 5 % External Patch APPLY DIRECTED. Quantity: 0 Refills: 0 Ordered: 07-Jul-2021 DO Activelisinopril 2.5 mg oral tablet (20 sources)Angiotensin Converting Enzyme InhibitorStart: 30-79-8045qnyh 1 tablet by mouth once dailylisinopril 2.5 mg Tab 2.5 mg = 1 tab(s), Oral, Daily, # 30 tab(s), Refills(s) 5, Pharmacy: [facility]/pharmacy #[id number], 167, cm, 05/24/24 13:49:00 EDT, Height/Length Dosing, 110.8, kg, 05/24/24 13:49:00 EDT, Weight Dosing Start Date: 05/26/24 Status: Ordered Quantity: 30.0 Unit: tab(s) Repeat number: 6Start: 21-58-3695yxrq 1 tablet by mouth once dailyLisinopril 2.5 MG Oral Tablet TAKE 1 TABLET DAILY. Quantity: 90 Refills: 3 Ordered: 19-Aug-2022 Aaron Ocampo MD Start : 30-Apr-2021 ActiveStart: 09-07-2019 End: 70-92-4076bcoe 1 tablet by mouth once dailyLisinopril 2.5 MG Oral Tablet TAKE 1 TABLET DAILY. Quantity: 90 Refills: 3 Ordered: 01-May-2021 Aaron Ocampo MD Start : 30-Apr-2021 ActiveStart: 06-06-2018 End: 38-76-7083inbx 2.5 mg by mouth once dailyLisinopril Discontinued 2.5 MG PO Daily June 14, 2018 12:00am August 31, 2019 4:38amloperamide hydrochloride 2 mg oral capsule (20 sources)Opioid AgonistStart: 00-53-8220njnl 1 capsule by mouth every four hours as neededloperamide 2 mg Cap 2 mg = 1 cap(s), Oral, q4hr, PRN for loose stool, # 60 cap(s), Refills(s) 0 Start Date: 11/25/22 Status: Ordered Quantity: 60.0 Unit: cap(s) Repeat number: 1loperamide (Imodium) 2 MG capsule every 6 (six) hours. ActiveLoperamide HCl - 2 MG Oral Tablet TAKE NEEDED. Quantity: 0 Refills: 0 Ordered: 07-Jul-2021 DO ActiveLORazepam 0.5 mg oral tablet (20 sources)BenzodiazepineStart: 52-55-0941felf 0.25 mg by mouth onceLORazepam 0.5 mg Tab 0.25 mg = 0.5 tab(s), Oral, Once, Refills(s) 0 Start Date: 11/25/22 Status: OrderedStart: 04-03-2020 End: 77-18-6572qyxz 0.5 mg by mouth at bedtimeLorazepam Active 0.5 MG PO Bedtime April 02, 2020 11:00pmStart: 08-31-2019 End: 84-44-6664xvju 0.5 mg under the tongue every six hoursLorazepam Discontinued 0.5 MG SUBLINGUAL Q6H August 31, 2019 12:00am September 07, 2019 2:50pmStart: 06-14-2018 End: 13-57-4111lafm 0.5 mg by mouth every six hoursLorazepam Discontinued 0.5 MG PO Q6H 12 12June 14, 2018 12:00am August 24, 2018 4:09am24 hr metoprolol succinate 100 mg extended release oral tablet (4 sources)beta-Adrenergic BlockerStart: 88-17-7237lpmj 1 tablet by mouth once dailyToprol XL 100 mg Tab-ER 100 mg = 1 tab(s), Oral, Daily, # 30 tab(s), Refills(s) 6, Pharmacy: [facility]/pharmacy #[id number], 167, cm, 08/24/24 13:40:00 EST, Height/Length Dosing, 111, kg, 08/24/24 13:46:00 EST, Weight Dosing Start Date: 08/24/24 Status: Ordered Quantity: 30.0 Unit: tab(s) Repeat number: 7Start: 70-11-8223khwo 1 tablet by mouth every twenty-four hoursToprol XL 100 MG 24 hr tablet Take 150 mg by mouth 08/24/2024 ActivemetroNIDAZOLE 500 mg oral tablet (4 sources)Nitroimidazole AntimicrobialStart: 33-42-9059qapu 1 tablet by mouth every eight hoursMetronidazole (Flagyl) 500 mg tablet Active 500 MG PO Q8H 12 02April 04, 2020 11:00pmStart: 11-19-2018 End: 10-82-6620xetc 500 mg by mouth four times dailyMetronidazole Discontinued 500 MG PO Four times daily November 18, 2018 11:00pm July 04, 2019 4:17pm naloxone hydrochloride 40 mg/ml nasal spray (7 sources)Opioid AntagonistStart: 65-60-6676ucjxzutc 4 mg/0.1 mL nasal liquid Use 1 Wilcox in one nostril (alternate sides) as needed for Drug Overdose every 2-3 mins. until help arrives. 2 Each 1 05/04/2021 Activeondansetron 4 mg disintegrating oral tablet (20 sources)Serotonin-3 Receptor AntagonistStart: 56-17-2914nojnlwvsoki ODT (Zofran-ODT) 4 MG disintegrating tablet Indications: Diverticulitis of intestine, part unspecified, with perforation and abscess without bleeding DISSOLVE 1 TABLET UNDER TONGUE ONCE ADAY AT THE SAME TIME EACH DAY 20 tablet 11/03/2024 ActiveStart: 22-42-9985orac 1 tablet by mouth every six hours as needed for nauseaondansetron 4 mg Dis Tab 4 mg = 1 tab(s), Oral, q6hr, PRN Nausea/Vomiting, # 12 tab(s), Refills(s) 0 Start Date: 11/25/22 Status: Ordered Quantity: 12.0 Unit: tab(s) Repeat number: 1Start: 11-19-2018 End: 89-56-5449kpqs 1 tablet by mouth once dailyondansetron ODT (Zofran-ODT) 4 MG disintegrating tablet Indications: Diverticulitis of intestine, part unspecified, with perforation and abscess without bleeding Take 1 tablet (4 mg) by mouth 1 (one)time each day at the same time 20 tablet 01/17/2024 Activetake 4 mg by mouth four times daily as needed for nauseaOndansetron (ZOFRAN ODT ORAL) Take 4 mg by mouth 4 times daily as needed for Nausea. Activetake 1 tablet by mouth once dailyOndansetron HCl - 4 MG Oral Tablet Take 1 tablet daily Quantity: 0 Refills: 0 Ordered: 07-Jul-2021 DO ActivePediatric Multivitamins-Iron (cerovite jr) CHEW oral chew tab (7 sources)Start: 79-63-4799rtvd 1 tablet by mouth once dailyPediatric Multivitamins-Iron (cerovite jr) CHEW oral chew tab Take 1 Tablet by mouth daily. 30 Tablet 2 10/20/2020 Activesennosides, fdc 8.6 mg oral tablet (7 sources)Start: 95-85-2196idmw 1 tablet by mouth at bedtimesenna (SENOKOT) 8.6 MG tablet Take 1 Tablet by mouth at bedtime. 30 Tablet 05/05/2021 Activesodium chloride 9 mg/ml inhalation solution (8 sources)Start: 92-04-3683dhohbi chloride 0.9% Inh Noemy 3 mL Refill(s) 0 Start Date: 11/25/22 Status: OrderedStart: 78-13-5738eepeas chloride 0.9% Inh Noemy 3 mL Refill(s) 0 Start Date: 11/25/22 Status: OrderedStart: 16-71-7861zgbq 1 mL by inhalation three times dailySodium Chloride Active 3 ML INHALATION Three times daily April 02, 2020 11:00pmspironolactone 25 mg oral tablet (20 sources)Aldosterone AntagonistStart: 86-05-1578wjig 1 tablet by mouth once dailyspironolactone 25 mg Tab 25 mg = 1 tab(s), Oral, Daily, # 30 tab(s), Refills(s) 5, Pharmacy: [facility]/pharmacy #[id number], 167, cm, 05/24/24 13:49:00 EDT, Height/Length Dosing, 110.8, kg, 05/24/24 13:49:00 EDT, Weight Dosing Start Date: 05/26/24 Status: Ordered Quantity: 30.0 Unit: tab(s) Repeat number: 6Start: 14-07-9666wxuk 1 tablet by mouth once dailySpironolactone (Aldactone) 25 mg tablet Active 25 MG PO Daily April 03, 2020 2:28pmStart: 09-07-2019 End: 97-81-9655rwpk 25 mg by mouth twice dailySpironolactone Discontinued 25 MG PO Twice daily September 07, 2019 12:00am April 03, 2020 2:29pm Start: 06-14-2018 End: 86-60-4102uyxp 25 mg by mouth once dailySpironolactone Discontinued 25 MG PO Daily June 14, 2018 12:00am August 31, 2019 4:38amStart: 06-06-2018 End: 73-52-4645ghmk 25 mg by mouth twice dailySpironolactone Discontinued 25 MG PO Twice daily 60 June 06, 2018 12:00am June 14, 2018 12:56pm Symbicort 160/4.5 inhalation aerosol with adapter (1 source)Start: 89-96-6145ised 2 puff(s) by inhalation twice dailySymbicort 160/4.5 inhalation aerosol with adapter 2 puff(s), Inhalation, BID, Refill(s) 0 Start Date: 11/25/22 Status: Ctogqmr98 actuat tiotropium 0.0025 mg/actuat inhalation spray (20 sources)AnticholinergicStart: 93-07-3578xrgw 2 puff(s) by inhalation once dailytiotropium (Spiriva Respimat) 2.5 MCG/ACT inhaler Indications: Chronic obstructive pulmonary disease, unspecified COPD type (HCC) Inhale 2 puffs 1 (one) time each day at the same time 3 each 3 03/07/2025 ActiveStart: 11-25-2022 Spiriva Respimat 60 ACT 2.5 mcg/inh inhalation aerosol Refills(s) 0 Start Date: 11/25/22 Status: OrderedStart: 93-33-7175ntgj 2 puff(s) by mouth once daily Tiotropium Jeremiah (Spiriva Respimat) 2.5 mcg/actuation mist Active 2 PUFF INHALATION Daily April 02, 2020 11:00pm INHALE 2 PUFFS BY MOUTH EVERYDAY End: 28-91-3381Yusyjek Respimat 2.5 MCG/ACT inhaler 1 (one) time each day at the same time. 03/07/2025 Discontinued (Reorder)Tiotropium Jeremiah Monohydrate (Spiriva Respimat) 2.5 MCG/ACT AERS 2 puffs Activetake 2 puff(s) by inhalation once dailySpiriva Respimat 2.5 MCG/ACT Inhalation Aerosol Solution INHALE 2 PUFFS ONCE DAILY Quantity: 0 Refills: 0 Ordered: 07-Jul-2021 DO ActivetraZODone hydrochloride 50 mg oral tablet (10 sources)Serotonin Reuptake InhibitorStart: 65-55-8289usqz 1 tablet by mouth at bedtimetraZODone (Desyrel) 50 MG tablet Indications: Insomnia, unspecified type TAKE 1 TABLET BY MOUTH AT BEDTIME 30 tablet 02/21/2025 ActiveStart: 98-04-4896wqepwbbnn Oral, Refills(s) 0 Start Date: 05/24/24 Status: Ordered Start: 01-17-2024 End: 67-52-8939ttyk 1 tablet by mouth at bedtimetraZODONE 50 mg Tab TAKE 1 TABLET BY MOUTH AT BEDTIME Start Date: 12/01/24 Status: Ordered Repeat number: 1 Completed/Discontinued Medications MedicationDrug Class(es)DatesSig (Normalized)Sig (Original)acetaminophen 325 mg oral tablet (9 sources)Start: 06-14-2018 End: 27-74-1299wxms 650 mg by mouth every four hoursAcetaminophen Discontinued 650 MG PO Q4H 120 June 14, 2018 12:00am April 03, 2020 2:28pmtake 2 tablets by mouth every four hours as needed for painacetaminophen (TYLENOL) 325 mg tablet Take 650 mg by mouth every 4 hours as needed for Pain or Fever. Activealbuterol 0.833 mg/ml / ipratropium bromide 0.167 mg/ml inhalation solution (2 sources)Anticholinergic, beta2-Adrenergic AgonistStart: 09-07-2019 End: 18-86-1816alln 1 mL by inhalation four times dailyIpratropium-Albuterol Discontinued 3 ML INHALATION Four times daily - Respiratory 120 September 072019 12:00am April 03, 2020 2:28pmapixaban 5 mg oral tablet (4 sources)Factor Xa InhibitorStart: 09-07-2019 End: 53-51-1990pnsa 1 tablet by mouth twice dailyApixaban (Eliquis) 5 mg Tablet Discontinued 5 MG PO Twice daily 60 September 07, 2019 12:00am April 03, 2020 2:28pmazithromycin 250 mg oral tablet (2 sources)Macrolide AntimicrobialStart: 01-12-2024 End: 98-53-5250bbnd 2 tablets by mouth once daily, then take 1 tablet by mouth once dailyazithromycin (Zithromax) 250 MG tablet Indications: COPD with acute exacerbation (CMS/HCC) Take 2 tablets (500 mg) by mouth Daily for 1 day, THEN 1 tablet (250 mg) Daily for 4 days. 6 tablet 01/12/2024 01/17/2024 Discontinued (Therapy completed)bisacodyl 5 mg delayed release oral tablet (2 sources)Stimulant LaxativeStart: 08-24-2018 End: 08-25-6409zjsv 5 mg by mouth once dailyBisacodyl Discontinued 5 MG PO Daily August 24, 2018 12:00am August 31, 2019 4:41amdocusate sodium 100 mg oral capsule (19 sources)Start: 08-31-2019 End: 43-27-9179tjuh 1 capsule by mouth twice dailyDocusate Sodium (Colace) 100 mg Capsule Discontinued 100 MG PO Twice daily August 31, 2019 12:00am September 07, 2019 2:50pm End: 65-08-0013Wjiceecl Sodium (DSS) 100 MG capsule 1 (one) time each day at the same time. 03/07/2025 Discontinueddoxycycline hyclate 100 mg oral capsule (2 sources)Tetracycline-class DrugStart: 07-26-2018 End: 92-73-5410cwkd 100 mg by mouth twice dailyDoxycycline Hyclate Discontinued 100 MG PO Twice daily 12 July 26, 2018 12:00am August 01, 2018 12:01am Ergocalciferol (2 sources)Provitamin D2 CompoundStart: 07-07-2019 End: 41-23-8180Ybanytuqoiimxj (Vitamin D2) Discontinued 28293 UNIT PO We@0900 7 July 07, 2019 12:00am August 31, 2019 4:41amStart: 07-07-2019 End: 35-23-8121Hotidxjqduppsz (Vitamin D2) Discontinued 67510 UNIT PO We@0900 7 July 07, 2019 1:00am August 31, 2019 5:58se991 actuat fluticasone propionate 0.11 mg/actuat metered dose inhaler (11 sources)CorticosteroidStart: 07-04-2019 End: 50-05-5906yfgu 1 puff(s) by mouth twice dailyFluticasone Propionate (Flovent Hfa) 110 mcg/actuation HFA aerosol inhaler Discontinued 1 PUFF INHAL ATION Twice daily April 02, 2020 11:00pm April 04, 2020 1:46pm TAKE 1 PUFF BY MOUTH TWICE A DAYtake 1 puff(s) by mouth twice dailyfluticasone (FLOVENT HFA) 110 MCG/ACT inhaler Inhale 1 Puff by mouth 2 times daily. Active Xxsmvncegfh-Jhdnexqkb-Hyoexl (Trelegy Ellipta) 200-62.5-25 MCG/ACT aerosol powder (5 sources)Start: 04-26-2024 End: 90-06-3768ligj 1 puff(s) by inhalation once daily Owegauawizy-Maagutckk-Kdpqfc (Trelegy Ellipta) 200-62.5-25 MCG/ACT aerosol powder Indications: Chronic obstructive pulmonary disease, unspecified COPD type (HCC) Inhale 1 puff Daily 1 each 5 04/26/2024 03/07/2025 DiscontinuedStart: 82-23-9306jync 1 puff(s) by inhalation once aqinoFliejctdxxb-Vjpqypyws-Tuiabq (Trelegy Ellipta) 200-62.5-25 MCG/ACT aerosol powder Indications: Chronic obstructive pulmonary disease, unspecified COPD type (HCC) Inhale 1 puff Daily 1 each 5 04/26/2024 ActiveStart: 26-41-8578sdij 1 puff(s) by inhalation once lyaykTmiaqnrggch-Savbgrbxs-Scgfxw (Trelegy Ellipta) 200-62.5-25 MCG/ACT aerosol powder Indications: Chronic obstructive pulmonary disease, unspecified COPD type (CMS/HCC) Inhale 1 puff Daily 1 each 5 04/26/2024 Delbyj91 hr guaiFENesin 600 mg extended release oral tablet (6 sources)Start: 07-07-2019 End: 80-79-4840ijhs 2 tablets by mouth twice daily, then take 1 tablet by mouth every twelve hoursGuaifenesin (Mucinex) 600 mg Tablet Extended Release 12hr Discontinued 1200 MG PO Twice daily 20 July 07, 2019 12:00am August 31, 2019 4:41amStart: 08-18-2018 End: 63-28-2376ewvc 1200 mg by mouth every twelve hoursGuaifenesin Discontinued 1200 MG PO Q12H 05 02August 18, 2018 12:00am August 25, 2018 12:02amStart: 07-26-2018 End: 93-43-8041afbw 1 tablet by mouth every twelve hours, then take 1 tablet by mouth every twelve hoursGuaifenesin (Mucinex) 600 mg tablet extended release 12hr Discontinued 600 MG PO Q12H July 26, 2018 12:00August 18, 2018 12:36pmhydrOXYzine pamoate 25 mg oral capsule (2 sources)AntihistamineStart: 06-06-2018 End: 57-77-3844wljk 25 mg by mouth every six hoursHydroxyzine Pamoate Discontinued 25 MG PO Q6H June 06, 2018 12:00am June 14, 2018 12: 53pmipratropium bromide 0.2 mg/ml inhalation solution (2 sources)AnticholinergicStart: 07-26-2018 End: 37-41-5679mhwu 1 mL by inhalation every eight hoursIpratropium Jeremiah Discontinued 1.25 ML INHALATION Q8H July 26, 2018 12:00am August 31 4:41ammethylPREDNISolone 4 mg oral tablet (2 sources)CorticosteroidStart: 07-07-2019 End: 86-39-5743wblk 1 tablet by mouth onceMethylprednisolone (Medrol (Blue)) 4 mg tablets,dose pack Discontinued 0 PO .COMPLEX July 07, 2019 12:00am August 31, 2019 4:41am orally per package directionsmicroencapsulated potassium chloride 20 meq extended release oral tablet (20 sources)Start: 03-51-4125ymcl 1 tablet by mouth once dailyKlor-Con M20 oral tablet, extended release 20 mEq = 1 tab(s), Oral, Daily, # 30 tab(s), Refills(s) 0 Start Date: 11/25/22 Status: Ordered Quantity: 30.0 Unit: tab(s) Repeat number: 1Start: 35-06-1752irqq 2 tablets by mouth once dailyKlor-Con M20 20 MEQ Oral Tablet Extended Release TAKE 2 TABLETS BY MOUTH DAILY Quantity: 60 Refills: 0 Ordered: 18-Aug-2022 Aaron Sanz DO Start : 27-Apr-2021 ActiveStart: 94-25-8471mkie 2 tablets by mouth once dailyKlor-Con M20 20 MEQ Oral Tablet Extended Release TAKE 2 TABLETS BY MOUTH DAILY Quantity: 180 Refills: 3 Ordered: 22-Jul-2021 Paty Gage Start : 27-Apr-2021 ActiveStart: 73-26-5227fnov 2 tablets by mouth once dailyKlor-Con M20 20 MEQ Oral Tablet Extended Release TAKE 2 TABLETS BY MOUTH DAILY Quantity: 60 Refills: 0 Ordered: 17-Jun-2021 Aaron Sanz DO Start : 27-Apr-2021 ActiveStart: 24-76-1282mlas 2 tablets by mouth once dailyPotassium Chloride (Klor-Con M20) 20 mEq tablet,ER particles/crystals Active 40 MEQ PO Daily April 02, 2020 11:00pm TAKE 2 TABLETS BY MOUTH DAILYStart: 10-10-2018 End: 37-51-7029Lmjlbtozl Chloride (K-Tab) 20 mEq Tablet Extended Release Discontinued 40 mEq/day PO Daily October 09, 2018 11:00pm September 07, 2019 2:50pmStart: 06-14-2018 End: 22-39-7904Lhytfivnu Chloride (Klor-Con M20) 20 mEq Tablet,Er Particles/Crystals Discontinued 40 MEQ PO Daily 60 June 14, 2018 12:00am August 25, 2018 10:11amprednisoLONE 10 mg disintegrating oral tablet (2 sources)CorticosteroidStart: 07-26-2018 End: 31-20-4297Gfowrabeahcu Sodium Phosphate Discontinued 10 MG PO As Directed July 26, 2018 12:00am August 17, 2018 2:04pm 40 mg for 3 days, 30 mg for 3 days, 20 mg for 3 days, 10 mg for 3 days then stoppredniSONE 10 mg oral tablet (20 sources)Start: 06-04-2024 End: 71-13-1545wvpgllEGIK (Deltasone) 10 MG tablet PLEASE SEE ATTACHED FOR DETAILED DIRECTIONS 06/04/2024 03/07/2025 DiscontinuedStart: 01-12-2024 End: 92-18-3409ymqu 1 tablet by mouth three times daily, then take 1 tablet by mouth twice daily, then take 1 tablet by mouth once dailypredniSONE (Deltasone) 20 MG tablet Indications: COPD with acute exacerbation (CMS/HCC) Take 1 tablet (20 mg) by mouth 3 (three) times a day for 5 days, THEN 1 tablet (20 mg) 2 (two) times a day for 2 days, THEN 1 tablet (20 mg) Daily for 2 days. 21 tablet 01/12/2024 01/21/2024 ExpiredStart: 11-12-9486hhdj 60 mg by mouth once daily at mealtimePrednisone Active 60 MG PO Daily November 27, 2020 11:00pm administer with food or milkStart: 95-10-3794dyny 40 mg by mouth once dailyPrednisone Active 40 MG PO Daily 10 April 04, 2020 11:00pmStart: 09-07-2019 End: 99-93-7392Pggvxncgzq Discontinued 10 MG PO Daily September 07, 2019 12:00am April 03, 2020 2:29pm 40mg for 2 days, 30 mg for 2 days, 20 mg for 2 days, 10 mg for 2 days then stopStart: 10-11-2018 End: 76-35-1430Jjunyvetzg Discontinued 10 MG PO Daily October 10, 2018 11:00pm November 19, 2018 5:52pm take 60mg (6 tabs aday) for 3 days, then 40mg (4tabs) for 3 days, then 20mg (2tabs) for 3 days, then 10mg (1tab) for 3 days. Start: 08-18-2018 End: 62-20-8988Emfakyltld Discontinued 10 MG PO Daily August 18, 2018 12:00am August 25, 2018 10:11am take 40mg (4tabs) for 3 days, then 20mg (2tabs) for 3 days, then 10mg (1tab) for 3 days.Start: 07-26-2018 End: 41-30-8569Xaerkhkoij Discontinued 10 MG PO As Directed July 26, 2018 12:00am August 17, 2018 2:04pm40 mg for 3 days, 30 mg for 3 days, 20 mg for 3 days then 10 mg for 3 days then stopStart: 06-06-2018 End: 40-65-2061abed 10 mg by mouth once daily for chronic obstructive pulmonary diseasePrednisone Discontinued 10 MG PO Daily June 06, 2018 12:00am June 14, 2018 12:55pm please start on 06/11/2018 after finished 20 mg prednisone. For COPDStart: 06-06-2018 End: 31-08-7916kqyt 20 mg by mouth once dailyPrednisone Discontinued 20 MG PO Daily 4 June 06, 2018 12:00am June 14, 2018 12:53pmticagrelor 90 mg oral tablet (8 sources)Start: 06-06-2018 End: 45-90-0330ibjt 1 tablet by mouth twice dailyTicagrelor (Brilinta) 90 mg Tablet Discontinued 90 MG PO Twice daily 60 June 14, 2018 12:00am July 26, 2018 3:36pm Problems Active Problems Problem ClassificationProblemDateDocumented DateEpisodic/ChronicAcute bronchitis (2 sources)Acute bronchitis; Translations: [Acute bronchitis, unspecified] 29-87-8941SitwufogZkgbl cerebrovascular disease (9 sources)Cerebral infarction; Translations: [Cerebral infarction, unspecified] Onset: 880187-25-0970GbqxubfXxdclccdjejreg/social admission (2 sources)Other reduced mobility; Translations: [Impaired mobility and activities of daily living]75-26-2095FtzstdteTvzuyyn disorders (20 sources)Anxiety; Translations: [Anxiety disorder, unspecified]Onset: 632798-41-9304EenqbwdJzsrsnpbs and vision defects (2 sources)Eye / vision finding; Translations: [Unspecified visual disturbance] 15-66-8489GxikzyhfWjamyek dysrhythmias (20 sources)Cardiac arrhythmia, unspecified; Translations: [Ventricular tachycardia]Onset: 370183-17-0566PpiwabvWtfieyk obstructive pulmonary disease and bronchiectasis (20 sources)Chronic obstructive pulmonary disease, unspecified; Translations: [Chronic obstructive lung disease]Onset: 10-13-2018 Resolved: 584442-13-8653NypmktwYmvpmuouxl disorders (20 sources)Patient encounter status; Translations: [Fitting and adjustment of automatic implantable cardiac defibrillator]Onset: 05-06-2022 Resolved: 38-16-9393KkdctlqTqipdfyxrj heart failure; nonhypertensive (20 sources)Heart failure, unspecified; Translations: [Heart failure with reduced ejection fraction]Onset: 08-26-2018 Resolved: 634872-61-2905JcslueuKcgdjhtb atherosclerosis and other heart disease (20 sources)Ischemic cardiomyopathy; Translations: [Atherosclerotic heart disease of jena coronary artery without angina pectoris]Onset: 10-13-2018 Resolved: 606033-62-3112KxmfqrxQahmsxoi atherosclerosis and other heart disease (2 sources)Coronary angioplasty status; Translations: [Coronary angioplasty status]Onset: 08-17-2603BbgjxavqYsviysog mellitus without complication (2 sources)Impaired fasting glycemia; Translations: [Impaired fasting glucose] 12-58-0853RpubxwecHpqvtzevq of lipid metabolism (12 sources)Hyperlipidemia; Translations: [Hyperlipidemia, unspecified]Onset: 854634-29-8050GsqxakcXsjrflarklgyvp and diverticulitis (20 sources)Diverticulitis of large intestine; Translations: [Diverticulitis of large intestine with perforation and abscess without bleeding]Onset: 11-20-2018 Resolved: 975661-27-6419KocxgmbShnmjkykl hypertension (20 sources)Essential (primary) hypertension; Translations: [Benign essential hypertension]Onset: 583012-57-5071LcxpypbCebas valve disorders (9 sources)Mitral valve disorder; Translations: [Other nonrheumatic mitral valve disorders]Onset: 698556-96-8957FkwngezEbvknqqoenen with complications and secondary hypertension (1 source)Hypertensive heart disease with heart failureOnset: 76-24-4096Cmvwdqy Late effects of cerebrovascular disease (9 sources)Hemiparesis as late effect of cerebrovascular disease; Translations: [Hemiplegia and hemiparesis following unspecified cerebrovascular disease affecting right dominant side]Onset: 156161-64-2965LgnzuskNzrkstxhmxc chest pain (4 sources)Chest pain; Translations: [Chest pain, unspecified]16-09-7965Rxzmuprs Other aftercare (20 sources)Drug therapy finding; Translations: [Long-term (current) use of other medications]EpisodicOther gastrointestinal disorders (12 sources)Ileostomy present; Translations: [Encounter for attention to ileostomy]Onset: 479901-00-0428LikecswMrjqh gastrointestinal disorders (18 sources)Colostomy present; Translations: [Encounter for attention to colostomy]Onset: 12-12-2019 Resolved: 783444-85-2414KvqhjqxPtmat gastrointestinal disorders (1 source)Colostomy status; Translations: [COLOSTOMY STATUS]Onset: 08-01-2021 ChronicOther gastrointestinal disorders (1 source)Ileostomy status; Translations: [Ileostomy status (HCC)]Onset: 68-17-1111WlowsniOouvx hematologic conditions (2 sources)Raised cardiac enzyme or marker; Translations: [Other specified abnormalities of plasma proteins]03-77-6781EndullxgSiohg lower respiratory disease (2 sources)Pulmonary edema; Translations: [Chronic pulmonary edema]07-04-2019 ChronicOther nervous system disorders (9 sources)Aphasia; Translations: [Aphasia]Onset: 231774-25-5258Ysevvps Other nervous system disorders (9 sources)Cognitive deficit in communication skills; Translations: [Cognitive communication deficit]Onset: 061697-72-0517WkbprrsVzcnj nervous system disorders (9 sources)Difficulty walking; Translations: [Difficulty in walking, not elsewhere classified]Onset: 295822-16-4235LjvbvjkNsldk nutritional; endocrine; and metabolic disorders (1 source)Obesity, unspecifiedOnset: 54-98-1583YzkkfyoXrwdt nutritional; endocrine; and metabolic disorders (3 sources)Body mass index 30+ - obesity; Translations: [Body Mass Index 34.0- 34.9, adult]ChronicOther nutritional; endocrine; and metabolic disorders (20 sources)Obesity; Translations: [Obesity, unspecified]Onset: 03-25-2020 99-22-0229AwqtzypDflwy nutritional; endocrine; and metabolic disorders (1 source)Morbid (severe) obesity due to excess calories; Translations: [MORBID SEVERE OBES D/T EXCESS NEHA]Onset: 40-79-9762ZraojqjCbyag nutritional; endocrine; and metabolic disorders (1 source)Body mass index (BMI) 32.0-32.9, adult; Translations: [BODY MASS INDEX BMI 32.0-32.9 ADULT]Onset: 46-22-8633GgmdgakVtsvh nutritional; endocrine; and metabolic disorders (12 sources)Obesity caused by energy imbalance; Translations: [Other obesity due to excess calories]Onset: 498456-50-9363GxsttodSzdt-; endo-; and myocarditis; cardiomyopathy (except that caused by tuberculosis or sexually transmitted disease) (11 sources)Cardiomyopathy; Translations: [Cardiomyopathy, unspecified]Onset: 188028-69-1553RfivnprPgdagbbp codes; unclassified (11 sources)Sleep apnea; Translations: [Sleep apnea, unspecified]Onset: 065148-83-5757OegtwtqOjpdufpc codes; unclassified (1 source)Obstructive sleep apnea (adult)(pediatric); Translations: [Obstructive sleep apnea (adult) (pediatric)]Onset: 30-18-1120CmomccaUmhxndms codes; unclassified (1 source)Hypersomnia; Translations: [Hypersomnia, unspecified]55-47-4095Ejnynzl Residual codes; unclassified (9 sources)Nicotine-filled electronic cigarette user; Translations: [Tobacco use disorder]EpisodicComment on above:one electronic device a week;Residual codes; unclassified (2 sources)Patient encounter status; Translations: [Encounter for prophylactic measures, unspecified]73-59-9641DrmgfwjfIryizssrmef failure; insufficiency; arrest (adult) (2 sources)Bgqfb-se-bmnzwvz respiratory failure; Translations: [Acute and chronic respiratory failure with hypoxia]99-17-2384HmiqeccOemovpyah-related disorders (16 sources)Smoker; Translations: [Nicotine dependence, unspecified, uncomplicated]Onset: 08-01-2021 Resolved: 500193-19-1257YfchdxqSofnrbt disorders (20 sources)Hypothyroidism; Translations: [Unspecified acquired hypothyroidism] Onset: 03-25-2020 Resolved: 189600-84-8026BwdddtuFggwupyxktem (3 sources)Cardiomyopathy, unspecified; Translations: [Cardiomyopathy, unspecified]Onset: 62-46-6309Wtwrkhjfltkz (1 source)Encntr for adjust and mgmt of automatic implntbl card defibOnset: 68-01-6180Ltdcwnwqricz (1 source)Family hx of ischem heart dis and oth dis of the circ sysOnset: 00-24-0872Nkdhkhsdcpee (1 source)CONTACT W/AND (SUSP) EXPOS COVID-19; Translations: [CONTACT W/AND (SUSP) EXPOS COVID-19]Onset: 08-01-2021 Past or Other Problems Problem ClassificationProblemDateDocumented DateEpisodic/ChronicAcute myocardial infarction (9 sources)Myocardial infarction; Translations: [Non-ST elevation (NSTEMI) myocardial infarction]Onset: 06-27-2024 Resolved: 516504-72-8953AwpecdyWeuecvmgrivxd of surgical procedures or medical care (14 sources)Colostomy malfunction; Translations: [Colostomy malfunction]Onset: 06-14-2020 Resolved: 846797-51-5107RneugleIoafnngjbctob of surgical procedures or medical care (16 sources)Drug-induced hypotension; Translations: [Hypotension due to drugs] Onset: 836298-00-0456TnxaplqyHdgxvfgekh associated with dizziness or vertigo (20 sources)Dizziness; Translations: [Dizziness and giddiness]Onset: 01-11-2024 Resolved: 797292-36-0706IeppozapCghwu and electrolyte disorders (11 sources)Hyponatremia; Translations: [Hypo-osmolality and hyponatremia]Onset: 01-17-2024 Resolved: 633231-95-0079KaghlmllNxjneqwwjxjshehm hemorrhage (16 sources)Lower gastrointestinal hemorrhage; Translations: [Gastrointestinal hemorrhage, unspecified]Onset: 729477-14-0167UacyzqohPgpawsf (16 sources)Candidiasis of mouth; Translations: [Candidal stomatitis]Onset: 988799-50-7556ArxvdudkQubmijudbdqda gastroenteritis (16 sources)Colitis; Translations: [Noninfective gastroenteritis and colitis, unspecified]Onset: 442929-70-8170AmsepyqoPecffvhlmxq deficiencies (6 sources)Vitamin D deficiency, unspecified; Translations: [Vitamin D deficiency]Onset: 06-08-2022 Resolved: 342621-28-5114YmzffbyOochv aftercare (1 source)alf (current) use of aspirin; Translations: [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 OF ASPIRIN]Onset: 01-12-7310QknaokaqPhcui aftercare (1 source)Other terminal clerk (current) drug therapy; Translations: [OTH SENIOR CARE CURRENT DRUG THERAPY]Onset: 18-90-7045ItixbxtlYhmjq circulatory disease (1 source)Personal history of sudden cardiac arrest; Translations: [PERSONAL HISTORY SUDDEN CARD ARREST]Onset: 14-66-3707LgbqxpieDtest connective tissue disease (11 sources)Muscle weakness; Translations: [Muscle weakness (generalized)]Onset: 143614-54-6420PngqeirnGgdaq gastrointestinal disorders (15 sources)Intra-abdominal collection; Translations: [Other ascites]Onset: 169618-18-3243DbdvguqhJxnnr gastrointestinal disorders (1 source)Abdominal mass; Translations: [Other ascites]Onset: 08-18-2019 94-29-4166QdfhoccsDoxpj lower respiratory disease (11 sources)Dyspnea; Translations: [Shortness of breath]Onset: 09-07-2019 67-99-6421BsurespiLfyhv nervous system disorders (5 sources)Bilateral carpal tunnel syndrome; Translations: [Carpal tunnel syndrome, bilateral upper limbs]Onset: 06-27-2024 Resolved: 241547-93-9439CkaarzzPazsv screening for suspected conditions (not mental disorders or infectious disease) (16 sources)Prolonged QT interval; Translations: [Abnormal electrocardiogram [ECG] [EKG]]Onset: 739319-13-4358BpcoshhhLmwtd upper respiratory disease (11 sources)Bronchospasm; Translations: [Acute bronchospasm]Onset: 01-17-2024 57-21-8122QozrwoprNsgqjqvfh; thrombophlebitis and thromboembolism (11 sources)Deep venous thrombosis of lower extremity; Translations: [Acute embolism and thrombosis of unspecified deep veins of right lower extremity] Onset: 015954-09-3276RuynevjbPpnbntrhy (except that caused by tuberculosis or sexually transmitted disease) (9 sources)Pneumonia; Translations: [Pneumonia, unspecified organism]Onset: 141185-72-5826ViqqmivhOfryaxqda heart disease (20 sources)H/O: pulmonary embolus; Translations: [Personal history of pulmonary embolism]Onset: 09-07-2019 Resolved: 554593-55-9947IsjeacpzOeguqqcz codes; unclassified (5 sources)Obstructive sleep apnea syndrome; Translations: [Obstructive sleep apnea (adult) (pediatric)]Onset: 06-27-2024 Resolved: 113160-54-3090InlowliJoosyvtp codes; unclassified (17 sources)History of closure of colostomy; Translations: [Other specified postprocedural states]Onset: 546347-42-9259JammtuvjHkwplkqa codes; unclassified (11 sources)History of partial resection of colon; Translations: [Acquired absence of other specified parts of digestive tract]Onset: EpisodicResidual codes; unclassified (1 source)Other amnesia; Translations: [Other amnesia]Onset: 99-96-8499Ofwfupwo Residual codes; unclassified (11 sources)Tobacco user; Translations: [Tobacco use]Onset: 06-27-2024 Resolved: 422401-18-3833VgjolresOxxnlrwn codes; unclassified (5 sources)Insomnia; Translations: [Insomnia, unspecified]Onset: 06-27-2024 Resolved: 765647-19-9060RcwhurzyMzkvlnqg codes; unclassified (5 sources)Memory impairment; Translations: [Other amnesia]Onset: 06-27-2024 Resolved: 540874-12-9042NpawgdhbZknkwmpkoec failure; insufficiency; arrest (adult) (20 sources)Hypoxemic respiratory failure; Translations: [Respiratory failure, unspecified with hypoxia]Onset: 700500-03-4868EvwmaybhTtqcjdctb and history of mental health and substance abuse codes (20 sources)Personal history of nicotine dependence; Translations: [Ex-smoker] Onset: 497034-04-0479ZxtsngwnTluqxkw on above:QUIT 2017 07 PPD;quit 05/26/2021;Skin and subcutaneous tissue infections (20 sources)Abscess of abdominal wall; Translations: [Cutaneous abscess of abdominal wall]Onset: 467403-78-9012RrmaskgdKwsmmgz (11 sources)Syncope; Translations: [Syncope and collapse]Onset: 01-17-2024 Resolved: 853150-01-0210PynpddiaRbqrixixiflu (5 sources)Smoker; Translations: [Smoking]Onset: 01-17-2024 Resolved: 810331-85-3663 Results Test NameValueInterpretationReference RangeFacilityHeart and Vascular Office/Clinic Noteon 96-47-8633[facility]/Clinic NoteHeart and Vascular Office/Clinic Note Chief Complaint 3 month follow up History of Present Illness The patient is a 59-year-old male with past cardiac history of coronary artery disease/PCI to circumflex/OM drug-eluting stent in 2017. He was seen by Dr. Lazcano in April 2024. Echo in 05/2024 demonstrated new regional wall motion abnormalities. The patient ended up undergoing a left heart catheterization in 07/2024 and and had PCI due to ISR of the circumflex/OM with JESSIE x 1. He did have a longlesion in the dominant RCA which was IFR negative. Patient comes in for 3-month follow-up today. Reviewed prior heart cath, echo. At last visit, I saw patient at which time metoprolol was increased to 150 mg ER daily and otherwise to continue on current cardiac medications. Patient reports that he feels stable from a heart standpoint since last visit. He has been compliant with the amlodipine and metoprolol that were added due to HTN/cardiomyopathy. He is also compliantwith aspirin, atorvastatin, Plavix, lisinopril for CAD. He does admit that he is not taking Zetia 10 mg which was previously prescribed for him. Patient reports he has not had any chest pain or significant anginal symptoms since last visit. Patient reports that he does have a ongoing constant very dull chest heaviness that has not changed at all since last visit. Patient has blood pressure is normal in the office today. He is compliant with all medications for hypertension which is above listed medications with no additional for blood pressure. Patient has heart rate that is at goal today in the office. Metoprolol was increased at last visit and this has helped to get patient's heart rate down. He states that he has been checking at home and is often in the 80s REVIEWED PRIOR NOTE FROM 02/22/2025: Patient comes in for 2-month follow-up today. Prior heart cath, echo. At last visit, I saw patient at which time patient was continued on current medications a refill for Zetia 10 mg daily was sent for him because it was not received previously. Patient reports that he feels stable from a heart standpoint since last visit. He has been compliant with the amlodipine and metoprolol that were added at last visit due to HTN/cardiomyopathy. He is also compliant with aspirin, atorvastatin, Plavix, lisinopril for CAD. He does admit that he is not taking Zetia 10 mg which was previously prescribed for him and states that he does not believe the pharmacy. Patient reports he has not had any chest pain or significant anginal symptoms since last visit. Patient reports that he does have a ongoing constant very dull chest heaviness that has not changed at all since last visit. Patient has blood pressure is on the high end of normal today in the office. He is compliant with all medications for hypertension which is only listed medications with no additional. Patient has elevated heart rate in office today. Patient's heart rate has been elevated at home he reports as well because he gets a heart rate when he checks his blood pressure. Patient reports thatit is usually in the low 100s similar to where it is today in the office. He is currently taking metoprolol 100 mg ER daily, but heart rate still elevated. Review of Systems ROS - Provider Constitutional: no fever, no chills, no sweats, no weakness Respiratory: yes shortness of breath, yes cough Cardiovascular: no chest pain Neuro: no dizziness. no loss of consciousness Physical Exam Vitals & Measurements HR: 82(Peripheral) RR: 18 BP: 122/87 SpO2: 94% HT: 167 cm HT: 66 in WT: 227.076 lb WT: 103 kg BMI: 36.93 General: alert, no acute distress Cardiovascular: regular rate and rhythm, no murmur normal peripheral perfusion Respiratory: Lungs: inspiratory wheeze in lower lobes bilateral. Upper lobes clear to auscultation.respirations non labored Extremities: no edema left lower extremity. no edema right lower extremity Neurological: oriented x 4, LOC appropriate for age, speech normal Skin: Warm, dry, intact- no rash or concerning lesions Cardiac Diagnostics [facility] with Dr. Lazcano on 08/01/2024: FINDINGS: SELECTIVE CORONARY ANGIOGRAPHY: Right dominant System Left Main: Free of significant disease LAD: Mild diffuse disease in its mid segment D1: Free of significant disease D2: Free of significant disease LCx: Large vessel with evidence of a previously placed stent in the mid/proximal segment with in-stent restenosis in the range of 90% with REUBEN II flow. The stent is extending to OM1. Proper circumflex is jailed by the previously placed stent with evidence of REUBEN I flow. Collaterals are appreciated from the RCA to the distal circumflex artery OM1: Large vessel, free of significant disease OM2: Moderate-sized vessel, free of significant disease Ramus Intermedius: Absent RCA: Large, anatomically superdominant vessel with evidence of a long stenosis in its mid segment of approximately 60% rPDA: Mild diffuse disease rPLB: Mild diffuse disease L (more content not included)...[facility] on [facility]:Result Comment: Electronically Signed By: Elizabeth LACEY, Juan Francisco Nam\barby\Date and Time Signed: 05/24/25 14:47 EDTHeart and Vascular Office/Clinic Noteon [id number] and Vascular Office/Clinic NoteHeart and Vascular Office/Clinic Note Chief Complaint 2 month follow up History of Present Illness The patient is a 59-year-old male with past cardiac history of coronary artery disease/PCI to circumflex/OM drug-eluting stent in 2017. He was seen by Dr. Lazcano in April 2024. Echo in 05/2024 demonstrated new regional wall motion abnormalities. The patient ended up undergoing a left heart catheterization in 07/2024 and and had PCI due to ISR of the circumflex/OM with JESSIE x 1. He did have a longlesion in the dominant RCA which was IFR negative. Patient comes in for 2-month follow-up today. Prior heart cath, echo. At last visit, I saw patient at which time patient was continued on current medications a refill for Zetia 10 mg daily was sent for him because it was not received previously. Patient reports that he feels stable from a heart standpoint since last visit. He has been compliant with the amlodipine and metoprolol that were added at last visit due to HTN/cardiomyopathy. He is also compliant with aspirin, atorvastatin, Plavix, lisinopril for CAD. He does admit that he is not taking Zetia 10 mg which was previously prescribed for him and states that he does not believe the pharmacy. Patient reports he has not had any chest pain or significant anginal symptoms since last visit. Patient reports that he does have a ongoing constant very dull chest heaviness that has not changed at all since last visit. Patient has blood pressure is on the high end of normal today in the office. He is compliant with all medications for hypertension which is only listed medications with no additional. Patient has elevated heart rate in office today. Patient's heart rate has been elevated at home he reports as well because he gets a heart rate when he checks his blood pressure. Patient reports thatit is usually in the low 100s similar to where it is today in the office. He is currently taking metoprolol 100 mg ER daily, but heart rate still elevated. REVIEWED PRIOR NOTE FROM 12/01/2024: Patient comes in for about 3-month follow-up today. Reviewed prior heart cath, echo. At last visit, patient saw Dr. Lazcano at which time amlodipine 5 mg daily was initiated for antihypertensive and antianginal purposes. Patient also was initiated on metoprolol at that time. Patient reports that he feels stable from a heart standpoint since last visit. He has been compliant with the amlodipine and metoprolol that were added at last visit due to CAD/cardiomyopathy. He is also compliant with aspirin, atorvastatin, Plavix, lisinopril for CAD. He does admit that he is not taking Zetia 10 mg which was previously prescribed for him and does not think he ever initiated thatmedication. Patient reports he has not had any chest pain or significant anginal symptoms since last visit. Patient has blood pressure is on the high end of normal today in the office. He is compliant with all medications for hypertension which is only listed medications with no additional. Patient reports that he does believe he has a COPD exacerbation right now. He states that it started at the beginning of the week and he needed oxygen a little bit in the middle of the week, but has not needed the past couple days. He states that his breathing issues are improving and he can usually tell additional history and heart and breathing issues and definitely thinks that this was a breathing problem this time around. Patient has elevated heart rate in the office today. Patient reports that his heart rate is almost always in the 90s or low 100s, but a little bit higher today than he usually is. Patient reports that he does not have any significant heart palpitations at this time and cannot tell that his heart isfast. He does feel like it could be a little bit worse right now due to his breathing issues. Review of Systems ROS - Provider Constitutional: no fever, no chills, no sweats, no weakness Respiratory: yes shortness of breath, yes cough Cardiovascular: no chest pain Neuro: no dizziness. no loss of consciousness Physical Exam Vitals & Measurements HR: 108(Peripheral) RR: 18 BP: 128/90 SpO2: 95% HT: 66 in HT: 167 cm WT: 106.2 kg WT: 234.131 lb BMI: 38.08 General: alert, no acute distress Cardiovascular: regular rate and rhythm, no murmur normal peripheral perfusion Respiratory: Lungs: inspiratory wheeze in lower lobes bilateral. Upper lobes clear to auscultation.respirations non labored Extremities: no edema left lower extremity. no edema right lower extremity Neurological: oriented x 4, LOC appropriate for age, speech normal Skin: Warm, dry, intact- no rash or concerning lesions Cardiac Diagnostics C with Dr. Lazcano on 08/01/2024: FINDINGS: SELECTIVE CORONARY ANGIOGRAPHY: Right dominant System Left Main: Free of significant disease LAD: Mild diffuse disease in its mid segment D1: Free of significant disease D2: Free of significant disease LCx: Large vessel with evidence of a previously placed stent in (more content not included)...[facility] AndersonComment on above:Result Comment: Electronically Signed By: Juan Francisco Johnson PA-C\Date and Time Signed: 02/22/25 14:21 EDTHeart and Vascular Office/Clinic Noteon 12-04-2024 Heart and Vascular Office/Clinic NoteHeart and Vascular Office/Clinic Note Chief Complaint 1 month F/U History of Present Illness The patient is a 59-year-old male with past cardiac history of coronary artery disease/PCI to circumflex/OM drug-eluting stent in 2017. He was seen by Dr. Lazcano in April 2024. Echo in 05/2024 demonstrated new regional wall motion abnormalities. The patient ended up undergoing a left heart catheterization in 07/2024 and and had PCI due to ISR of the circumflex/OM with JESSIE x 1. He did have a longlesion in the dominant RCA which was IFR negative. Patient comes in for about 3-month follow-up today. Reviewed prior heart cath, echo. At last visit, patient saw Dr. Lazcano at which time amlodipine 5 mg daily was initiated for antihypertensive and antianginal purposes. Patient also was initiated on metoprolol at that time. Patient reports that he feels stable from a heart standpoint since last visit. He has been compliant with the amlodipine and metoprolol that were added at last visit due to CAD/cardiomyopathy. He is also compliant with aspirin, atorvastatin, Plavix, lisinopril for CAD. He does admit that he is not taking Zetia 10 mg which was previously prescribed for him and does not think he ever initiated thatmedication. Patient reports he has not had any chest pain or significant anginal symptoms since last visit. Patient has blood pressure is on the high end of normal today in the office. He is compliant with all medications for hypertension which is only listed medications with no additional. Patient reports that he does believe he has a COPD exacerbation right now. He states that it started at the beginning of the week and he needed oxygen a little bit in the middle of the week, but has not needed the past couple days. He states that his breathing issues are improving and he can usually tell additional history and heart and breathing issues and definitely thinks that this was a breathing problem this time around. Patient has elevated heart rate in the office today. Patient reports that his heart rate is almost always in the 90s or low 100s, but a little bit higher today than he usually is. Patient reports that he does not have any significant heart palpitations at this time and cannot tell that his heart isfast. He does feel like it could be a little bit worse right now due to his breathing issues. Review of Systems PHQ Score Initial Depression Screen Score: 0 SCORE ROS - Provider Constitutional: no fever, no chills, no sweats, no weakness Respiratory: yes shortness of breath, yes cough Cardiovascular: no chest pain Neuro: no dizziness. no loss of consciousness Physical Exam Vitals & Measurements HR: 114(Peripheral) RR: 22 BP: 139/90 SpO2: 96% HT: 167 cm HT: 66 in WT: 112.0 kg WT: 246.917 lb BMI: 40.16 General: alert, no acute distress Cardiovascular: regular rate and rhythm, no murmur normal peripheral perfusion Respiratory: Lungs: inspiratory wheeze in lower lobes bilateral. Upper lobes clear to auscultation.respirations non labored Extremities: no edema left lower extremity. no edema right lower extremity Neurological: oriented x 4, LOC appropriate for age, speech normal Skin: Warm, dry, intact- no rash or concerning lesions Cardiac Diagnostics C with Dr. Lazcano on 08/01/2024: FINDINGS: SELECTIVE CORONARY ANGIOGRAPHY: Right dominant System Left Main: Free of significant disease LAD: Mild diffuse disease in its mid segment D1: Free of significant disease D2: Free of significant disease LCx: Large vessel with evidence of a previously placed stent in the mid/proximal segment with in-stent restenosis in the range of 90% with REUBEN II flow. The stent is extending to OM1. Proper circumflex is jailed by the previously placed stent with evidence of REUBEN I flow. Collaterals are appreciated from the RCA to the distal circumflex artery OM1: Large vessel, free of significant disease OM2: Moderate-sized vessel, free of significant disease Ramus Intermedius: Absent RCA: Large, anatomically superdominant vessel with evidence of a long stenosis in its mid segment of approximately 60% rPDA: Mild diffuse disease rPLB: Mild diffuse disease LEFT HEART CATHETERIZATION: LVEDP: 24 mmHg LV EJECTION FRACTION and WALL MOTION: Not assessed Following assessment of the diagnostic angiogram, I felt that we should proceed to the IFR of the RCA, given presence of the moderate stenosis in the range of 60%. Clearly, circumflex artery had evidence of significant in-stent restenosis and is supplying a large territory, therefore we elected to intervene on the circumflex artery. iFR assessment note The patient was heparinized. A 6 [place] JR4 guiding catheter was used. Right coronary artery was engaged. Intracoronary nitroglycerin was administered. Pressure wire was advanced to the proximal RCA,and after performance of advanced normalization, advanced to the distal RCA with no technical difficulties. iFR was assessed at 0.95, consistent with fu (more content not included)... [facility] AndersonComment on above:Result Comment: Electronically Signed By: Elizabeth LACEY, Juan Francisco Nam\.br\Date and Time Signed: 12/04/24 10:03 EDT Heart and Vascular Office/Clinic Noteon [id number] and Vascular Office/Clinic NoteHeart and Vascular Office/Clinic Note Chief Complaint 3 mo F/U History of Present Illness The patient is a 58-year-old male with past cardiac history of coronary artery disease/PCI to circumflex/OM drug-eluting stent in 2017. He was seen by myself in April 2024. His cardiac workup included a transthoracic echocardiogram, which demonstrated new regional wall motion abnormalities. The patient ended up undergoing a left heart catheterization and percutaneous coronary intervention to severe ISR of the circumflex/OM with balloon angioplasty of the proper circumflex artery. He did have a long lesion in the dominant RCA which was IFR negative. The procedure went well. He presents todayfor a scheduled follow-up appointment. He reports doing well overall. He states that following the PCI procedure he is feeling more energetic and has better sleep. He reports occasional chest discomfort, however, it is not as bad. He states compliance with the current treatment plan. Denies any side effects. Review of Systems PHQ Score Initial Depression Screen Score: 0 SCORE ROS - Provider Constitutional: no fever, no [...] infections Physical Exam Vitals & Measurements HR: 98(Peripheral) RR: 18 BP: 152/98 SpO2: 98% HT: 66 in HT: 167 cm WT: 111 kg WT: 244.713 lb BMI: 39.8 General: alert, no acute distress Neck: Supple, noJVD nocarotid bruit Cardiovascular: regular rate and rhythm, no murmur normal peripheral perfusion Respiratory: Lungs expiratory wheezes, respirations non labored Extremities: no edema left lower extremity. no edema right lower extremity Neurological: oriented x 4, LOC appropriate for age, speech normal Skin: Warm, dry, intact- no rash or concerning lesions Procedure (06/20/2024 15:19 EST Echo Transthoracic w/ Contrast) [place] [address] Adult Echocardiogram Report Name: ELICEO KENNY Study Date: 06/20/2024 02:24 PM BP: 139/88 mmHg Patient Location: [facility] Ambulatory(s) [facility] HR: 87 : 1965 Gender: Male Height: 66 in Age: 58 yrs Ethnicity: T Weight: 244 lb Reason For Study: Cardiomyopathy BSA: 2.2 m2 History: Smoker-Yes,CAD,CHF,Stents Ordering Physician: Jaleesa^Blanco^D Referring Physician: Blanco Lazcano Performed By: Kiah Carcamo, WYATT, RVT Interpretation Summary The left ventricle is mildly dilated. Mild left ventricular hypertrophy. Left ventricular ejection fraction is mild to moderately reduced. Ejection Fraction = 40%. There is mild to moderate global hypokinesis of the left ventricle. There is apical wall moderate hypokinesis Grade I diastolic dysfunction, (abnormal relaxation pattern) [1] Left heart catheterization procedure report DATE OF PROCEDURE: 08/01/2024 RIGGER UP Blanco Lazcano MD [facility] INDICATION: New onset cardiomyopathy, history of coronary artery disease BRIEF HISTORY: The patient is a 58-year-old male with past medical history of CAD, PCI to the circumflex artery, who presents with new onset cardiomyopathy with depressed LVEF. PROCEDURE(S) PERFORMED: Left Heart Catheterization Selective Coronary Angiography IVUS guided PCI to the proximal/mid circumflex artery with 1 JESSIE Moderate Sedation PRE-PROCEDURAL INFORMED CONSENT: The procedure and conscious sedation were discussed in detail withthe patient/next of kin/durable power of including the indications, expected outcomes, potential treatment options based upon the results, alternative treatment options and benefits, risks and possible complications associated with the procedure. The patient/next of kin/durable power of expressed an understanding of the information provided and willingness to proceed. Signed, informed consent forthe procedure was obtained for all of the above. DESCRIPTION OF THE PROCEDURE: In the postabsorptive state, the patient was brought to the Adult Cardiac Computer System Specialist and placed on the table. The planned puncture sites/areas were prepped and draped in usual sterile fashion and a safety time-out was performed. Moderate Sedation was given by the Cardiac Computer System Specialist RN. RIGHT RADIAL ARTERY ACCESS: The puncture site was infiltrated with 1% lidocaine. The modified Seldinger technique was performed to access the right radial artery using (more content not included)...[facility] Comment on above:Result Comment: Electronically Signed By: Jaleesa SOLIS, Blanco [place]\.br\Date and Time Signed: 08/24/24 14:00 ESTCB w/Indiceson 08-01-2024 Erythrocyte distribution width (RBC) [Ratio]13.7 %Wufwti05.9-14.2FMansfield HospitalComment on above:Order Comment: if not completed in last 30 days Performed By: #### [id number] #### [facility] [address] [place], [place] [address]Clrdsrlhkx (Bld) [Volume fraction]44.2 %Wanyck46.7-49.0[facility] SouthComment on above:Order Comment: if not completed in last 30 daysPerformed By: #### [id number] #### [facility] [address] [place], [place] [address]Fmzqowszdd (Bld) [Mass/Vol]15.7 g/zVHxvtnr90.5-17.5FMansfield HospitalComment on above:Order Comment: if not completed in last 30 days Performed By: #### [id number] #### [facility] [address] [place] [id number] (RBC) [Entitic mass]34.7 etYmtg12.0-34.0[facility] SouthComment on above:Order Comment: if not completed in last 30 days Performed By: #### [id number] #### [facility] [address] [place] [id number] (RBC) [Mass/Vol]35.5 g/xLCuincb37.4-36.0[facility] SouthComment on above:Order Comment: if not completed in last 30 days Performed By: #### [id number] #### [facility] [address] [place] [address] [id number] (RBC) [Entitic vol]97.6 fWEizibe73.0-100.0[facility] SouthComment on above:Order Comment: if not completed in last 30 days Performed By: #### [id number] #### [facility] [address] [place] [id number] E9/KObttce670.0-500.0[facility] Comment on above:Order Comment: if not completed in last 30 daysPerformed By: #### [id number] #### [facility] [address] [place] [address] [id number] mean volume (Bld) [Entitic vol]7.4 fLNormal6.4-10.8 [facility] SouthComment on above:Order Comment: if not completed in last 30 daysPerformed By: #### [id number] #### [facility] [address] [place] [id number] (Bld) [#/Vol]4.5 E12/LNormal4.3-5.9[facility] SouthComment on above:Order Comment: if not completed in last 30 daysPerformed By: #### [id number] #### [facility] [address] [place], [place] [address]WSZ size Nom (Bld)NORMALInvalid Interpretation CodePremier Health Miami Valley Hospital SouthComment on above:Order Comment: if not completed in last 30 days Performed By: #### [id number] #### [facility] [address] [place], [place] [address]BCS corrected for nucl RBC Auto (Bld) [#/Vol]8.0 E9/LNormal 4.0-11.0[facility] SouthComment on above:Order Comment: if not completed in last 30 daysPerformed By: #### [id number] #### [facility] [address] [place] [id number] Instructionson [id number] Instructions Discharge Instructions ZOYAELICEO :1965 Visit Date:08/01/2024 Inpatient Discharge Instructions Your Care Team Admitting Physician - Blanco Lazcano MD Referring Physician - Blanco Lazcano MD Reason for Your Visit R93.1 I25.10 I42.9 Your Diagnosis Acute diverticulitis Acute inferior myocardial infarction Atrial fibrillation CAD (coronary artery disease) HLD (hyperlipidemia) HTN (hypertension) Tests Performed BMP -- Results Pending -- CBC w/ Indices -- Results Pending -- Magnesium Level -- Results Pending -- Troponin -- Results Pending -- CV Cardiovascular -- Results Pending -- CV Coronary IVUS FFR Initial -- Results Pending -- CV Coronary IVUS Initial -- Results Pending -- Please visit your patient portal for your results or contact your primary care physician. This Is Your Medications List albuterol aspirin (aspirin 81 mg Oral EC Tab) atorvastatin (atorvastatin 80 mg Tab) atorvastatin (atorvastatin 80 mg Tab) carvedilol (carvedilol 6.25 mg Tab) carvedilol (carvedilol 6.25 mg Tab) clopidogrel (clopidogrel 75 mg Tab) clopidogrel (clopidogrel 75 mg Tab) cyclobenzaprine (cyclobenzaprine 5 mg Tab) furosemide (furosemide 40 mg Tab) levothyroxine (levothyroxine 200 mcg (0.2 mg) Tab) lidocaine topical (lidocaine 5% patch) lisinopril (lisinopril 2.5 mg Tab) lisinopril (lisinopril 2.5 mg Tab) loperamide (loperamide 2 mg Cap) lorazepam (LORazepam 0.5 mg Tab) ondansetron (ondansetron 4 mg Dis Tab) potassium chloride (Klor-Con M20 oral tablet, extended release) sodium chloride (sodium chloride 0.9% Inh Noemy 3 mL) spironolactone (spironolactone 25 mg Tab) spironolactone (spironolactone 25 mg Tab) Procedure History PCI - Percutaneous coronary intervention (08/01/2024), Appendectomy, Colostomy, Heart, Left leg. Discharge Vitals Heart Rate (Peripheral) 102 Respiratory Rate 18 Blood Pressure 128/89 Height 167 cm Weight 111 kg BMI 39.8 What to do next Instructions From Your Doctor Event Name Event Result Discharge Activity Resume normal activities in 24 hours, Arrange for a responsible adult supervision for 24 hours Discharge Restrictions No driving for 24 hrs, Do not make important decisions for 24 hours, Do not drink alcoholic beverages for 24 hours Discharge Diet(s) Regular Pending Diagnostic Test Results None Previously Scheduled Follow-Up Appointments 2024 2:45 PM EST With: Jaleesa SOLIS, Blanco Montenegro Where: [facility]iology [facility] New Follow Up Appointments after Discharge Follow Up with Blanco Lazcano When: 08/24/2024 02:45 PM EST Where: [address] [place] [phone] Business (1) Medications What How Much When Instructions Next Dose Unchanged albuterol Unchanged aspirin (aspirin 81 mg Oral EC Tab) 1 Tablets By Mouth Every day Unchanged atorvastatin (atorvastatin 80 mg Tab) 1 Tablets By Mouth Every day Unchanged atorvastatin (atorvastatin 80 mg Tab) 1 Tablets By Mouth Every day Unchanged carvedilol (carvedilol 6.25 mg Tab) 1 Tablets By Mouth 2 times a day Unchanged carvedilol (carvedilol 6.25 mg Tab) 1 Tablets By Mouth 2 times a day Unchanged clopidogrel (clopidogrel 75 mg Tab) By Mouth Every day Unchanged clopidogrel (clopidogrel 75 mg Tab) 1 Tablets By Mouth Every day Unchanged cyclobenzaprine (cyclobenzaprine 5 mg Tab) Unchanged furosemide (furosemide 40 mg Tab) 1 Tablets By Mouth Every day Unchanged levothyroxine (levothyroxine 200 mcg (0.2 mg) Tab) 1 Tablets By Mouth Every day Unchanged lidocaine topical (lidocaine 5% patch) Unchanged lisinopril (lisinopril 2.5 mg Tab) 1 Tablets By Mouth Every day Unchanged lisinopril (lisinopril 2.5 mg Tab) 1 Tablets By Mouth Every day Unchanged loperamide (loperamide 2 mg Cap) 1 Capsules By Mouth Every 4 hours as needed for for loose stool Unchanged lorazepam (LORazepam 0.5 mg Tab) 0.5 Tablets By Mouth Once Unchanged ondansetron (ondansetron 4 mg Dis Tab) 1 Tablets By Mouth Every 6 hours as needed for Nausea/Vomiting Unchanged potassium chloride (Klor-Con M20 oral tablet, extended release) 1 Tablets By Mouth Every day Unchanged sodium chloride (sodium chloride 0.9% Inh Noemy 3 mL) Unchanged spironolactone (spironolactone 25 mg Tab) 1 Tablets By Mouth Every day Unchanged spironolactone (spironolactone 25 mg Tab) 1 Tablets By Mouth Every day Test Results CBC WBC: 8 E9/L (08/01/24 07:30:00) RBC: 4.5 E12/L (08/01/24 07:30:00) HGB: 15.7 gm/dL (08/01/24 07:30:00) Hct: 44.2 % (08/01/24 07:30:00) MCV: 97.6 fL (08/01/24 07:30:00) MCH: 34.7 pg High (08/01/24 07:30:00) MCHC: 35.5 gm/dL (08/01/24 07:30:00) RDW: 13.7 % (08/01/24 07:30:00) Platelet: 226 E9/L (08/01/24 07:30:00) MPV: 7.4 fL (08/01/24 07:30:00) Allergies penicillins (Reaction) Devices Implanted/Removed This Visit Notice: You have devices implanted this visit that may not be MRI compatible. Implanted PC (more content not included)...NormalPremier Health Miami Valley Hospital SouthComment on above:Result Comment: Electronically Signed By: Mustapha BARAJAS, Sangeeta Nam\.jesus\Date and Time Signed: 08/01/24 11:20 ESTHEMATOLOGYOrdered By: SYSTEM SYSTEM on 08-01-2024 Erythrocyte distribution width (RBC) [Ratio]13.7 %Tgwanh56.9 - 14.2 %Remisol HemeHematocrit (Bld) [Volume fraction]44.2 %Prottn76.7 - 49.0 %Remisol Heme Hemoglobin (Bld) [Mass/Vol]15.7 g/mIAovuoo42.5 - 17.5 gm/dLRemisol HemeMCH (RBC) [Entitic mass]34.7 moLxjh15.0 - 34.0 pgRemisol HemeMCHC (RBC) [Mass/Vol]35.5 g/yOPifvpw28.4 - 36.0 gm/dLRemisol HemeMCV (RBC) [Entitic vol]97.6 mNUizhbx49.0 - 100.0 fLRemisol DvmsZeckqbhn674.0 E9/RHzwwpy798.0 - 500.0 E9/LRemisol Heme Platelet mean volume (Bld) [Entitic vol]7.4 fLNormal6.4 - 10.8 fLRemisol HemeRBC (Bld) [#/Vol]4.5 E12/LNormal4.3 - 5.9 E12/LRemisol HemeRBC size Nom (Bld)NORMAL *NA* (08/01/24 7:30 AM)Invalid Interpretation CodeRemisol HemeWBC corrected for nucl RBC Auto (Bld) [#/Vol]8.0 E9/LNormal4.0 - 11.0 E9/LRemisol HemeInpatient Clinical Summaryon [id number] Clinical SummaryInpatient Clinical Summary [address] [address] Clinical Summary Person Information: Name: ELICEO KENNY Age: 58 Years : 1965 Sex: Male PCP: AMBER CUELLRA DO Marital Status: Single Race: White Ethnicity: Non- or Language: Polish Visit Id: Visit Reason: R93.1 I25.10 I42.9 Speciality: Acuity: Enc Type: Ambulatory/Same Day Surgery Med Service: Surgery Arrival: 08/01/2024 06:51:42 Discharge: Dispo Type: Address: [address] [facility] [facility] [id number] Provider Notes: Diagnosis: Problems No Problems Documented Smoking Status: Former Smoker Functional Status: Sensory Deficits: History of Falls: Within last three months Mobility Assistance Prior to Admission: Independent ADLs: Independent Current Level of Assistance for Self-Care/Mobility: Cognitive Status: Allergies penicillins (Reaction) Measurements: Height: 167 cm Weight: 111 kg Blood Pressure: 128 mmHg / 89 mmHg BMI: 39.8 kg/m2 Procedures PCI - Percutaneous coronary intervention (08/01/2024) Immunizations No Immunizations Documented This Visit Final Med List: albuterol aspirin (aspirin 81 mg Oral EC Tab) 1 Tablets By Mouth every day. atorvastatin (atorvastatin 80 mg Tab) 1 Tablets By Mouth every day. atorvastatin (atorvastatin 80 mg Tab) 1 Tablets By Mouth every day. Refills: 5. carvedilol (carvedilol 6.25 mg Tab) 1 Tablets By Mouth 2 times a day. carvedilol (carvedilol 6.25 mg Tab) 1 Tablets By Mouth 2 times a day. Refills: 5. clopidogrel (clopidogrel 75 mg Tab) By Mouth every day. clopidogrel (clopidogrel 75 mg Tab) 1 Tablets By Mouth every day. Refills: 5. cyclobenzaprine (cyclobenzaprine 5 mg Tab) furosemide (furosemide 40 mg Tab) 1 Tablets By Mouth every day. levothyroxine (levothyroxine 200 mcg (0.2 mg) Tab) 1 Tablets By Mouth every day. lidocaine topical (lidocaine 5% patch) lisinopril (lisinopril 2.5 mg Tab) 1 Tablets By Mouth every day. lisinopril (lisinopril 2.5 mg Tab) 1 Tablets By Mouth every day. Refills: 5. loperamide (loperamide 2 mg Cap) 1 Capsules By Mouth every 4 hours as needed for loose stool. lorazepam (LORazepam 0.5 mg Tab) 0.5 Tablets By Mouth Once. ondansetron (ondansetron 4 mg Dis Tab) 1 Tablets By Mouth every 6 hours as needed Nausea/Vomiting. potassium chloride (Klor-Con M20 oral tablet, extended release) 1 Tablets By Mouth every day. sodium chloride (sodium chloride 0.9% Inh Noemy 3 mL) spironolactone (spironolactone 25 mg Tab) 1 Tablets By Mouth every day. Refills: 5. spironolactone (spironolactone 25 mg Tab) 1 Tablets By Mouth every day. Care Team Members: Attending Physician: Blanco Lazcano MD Consulting Physician: Referring Physician: Blanco Lazcano MD Follow up: With: Address: When: Blanoc Lazcano [address] [place], [place] [id number] [phone] Business (1) 08/24/2024 2:45 PM Type Location Start [facility] Cardiology Follow Up (FT) FT.Cardiology Clinic 08/24/2024 2:45 PM 08/24/2024 3:00 PM Confirmed Patient Education Information: CV - Cardiovascular PCI Discharge Instructions (CUSTOM)[facility] Patient Summaryon [id number] Patient Summary Inpatient Patient Summary [address] [address] Patient Discharge Instructions PERSON INFORMATION Name: ELICEO KENNY Date of : 1965 Current Date: 08/01/2024 11:19:30 PHYSICIANS Admitting Physician: Blanco Lazcano MD Primary Care Physician: AMBER CUELLAR DO PCP Phone Number: [phone] Comment: Discharge Diagnosis: Condition at Discharge: Improved ELICEO KENNY has been given the following list of follow-up instructions, prescriptions, and patient education materials: PATIENT FOLLOW-UP INFORMATION Diet: Regular Discharge Activity: Resume normal activities in 24 hours, Arrange for a responsible adult supervision for 24 hours Discharge Restrictions: No driving for 24 hrs, Do not make important decisions for 24 hours, Do notdrink alcoholic beverages for 24 hours Wound Care Instructions: Remove Your Dressing In Days Call Your Doctor For: IF UNABLE TO CONTACT YOUR PHYSICIAN AND YOU FEEL IT IS AN EMERGENCY, GO TO THE NEAREST EMERGENCY ROOM OR CALL 911 Home Treatment: Devices/Equipment: None Special Services: Additional Instructions: Primary Care Physician to provide the following pending test results: None Follow up: With: Address: When: Blanco [place] [address] [phone] Business (1) 08/24/2024 2:45 PM In the event that this physician does not participate in your insurance network, please consult with your insurance company to find a nearby participating provider. Type Location Start [facility] Cardiology Follow Up (FT) FT.Cardiology Clinic 08/24/2024 2:45 PM 08/24/2024 3:00 PM Confirmed Comment: ZOYA Campos EMIL F, have received the attached patient education materials/instructions and have verbalized understanding: Patient Signature Date Clinican/Nurse Signature Date HERE ARE THE MEDICATION CHANGES THAT OCCURRED DURING YOUR HOSPITAL STAY Medications to Continue with No Changes Other Medications albuterol Last Dose: Next Dose: aspirin (aspirin 81 mg Oral EC Tab) 1 Tablets By Mouth every day. Last Dose: Next Dose: atorvastatin (atorvastatin 80 mg Tab) 1 Tablets By Mouth every day. Last Dose: Next Dose: atorvastatin (atorvastatin 80 mg Tab) 1 Tablets By Mouth every day. Refills: 5. Last Dose: Next Dose: carvedilol (carvedilol 6.25 mg Tab) 1 Tablets By Mouth 2 times a day. Last Dose: Next Dose: carvedilol (carvedilol 6.25 mg Tab) 1 Tablets By Mouth 2 times a day. Refills: 5. Last Dose: Next Dose: clopidogrel (clopidogrel 75 mg Tab) By Mouth every day. Last Dose: Next Dose: clopidogrel (clopidogrel 75 mg Tab) 1 Tablets By Mouth every day. Refills: 5. Last Dose: Next Dose: cyclobenzaprine (cyclobenzaprine 5 mg Tab) Last Dose: Next Dose: furosemide (furosemide 40 mg Tab) 1 Tablets By Mouth every day. Last Dose: Next Dose: levothyroxine (levothyroxine 200 mcg (0.2 mg) Tab) 1 Tablets By Mouth every day. Last Dose: Next Dose: lidocaine topical (lidocaine 5% patch) Last Dose: Next Dose: lisinopril (lisinopril 2.5 mg Tab) 1 Tablets By Mouth every day. Last Dose: Next Dose: lisinopril (lisinopril 2.5 mg Tab) 1 Tablets By Mouth every day. Refills: 5. Last Dose: Next Dose: loperamide (loperamide 2 mg Cap) 1 Capsules By Mouth every 4 hours as needed for loose stool. Last Dose: Next Dose: lorazepam (LORazepam 0.5 mg Tab) 0.5 Tablets By Mouth Once. Last Dose: Next Dose: ondansetron (ondansetron 4 mg Dis Tab) 1 Tablets By Mouth every 6 hours as needed Nausea/Vomiting. Last Dose: Next Dose: potassium chloride (Klor-Con M20 oral tablet, extended release) 1 Tablets By Mouth every day. Last Dose: Next Dose: sodium chloride (sodium chloride 0.9% Inh Noemy 3 mL) Last Dose: Next Dose: spironolactone (spironolactone 25 mg Tab) 1 Tablets By Mouth every day. Refills: 5. Last Dose: Next Dose: spironolactone (spironolactone 25 mg Tab) 1 Tablets By Mouth every day. Last Dose: Next Dose: Comment: MEDICATION L (more content not included)...NormalPremier Health Miami Valley Hospital SouthBMP on 40-91-1398Ehbib gap [Moles/Vol]13 mmol/LNormal6-16[facility] Comment on above:Performed By: #### [id number] #### [facility] Laboratory [address] [place], [place] [address]Nbiwxqg [Mass/Vol]9.6 mg/dLNormal8.9-11.1FMansfield HospitalComment on above:Performed By: #### [id number] #### [facility] [address] [place], [place] [address]Hpupulry [Moles/Vol]103 mmol/TKnnzry953-363FkyqoqPremier Health Miami Valley Hospital SouthComment on above:Performed By: #### [id number] #### [facility] [address] [place], [place] [address]HZ3 [Moles/Vol]24 mmol/YSvqfsf28-51GqxsrgPremier Health Miami Valley Hospital South Comment on above:Performed By: #### [id number] #### [facility] [address] [place], [place] [address]Ofivpgbnga [Mass/Vol]0.7 mg/dLNormal0.5-1.3FMansfield HospitalComment on above:Performed By: #### [id number] #### [facility] [address] [place], [place] [address]Izjewjp [Mass/Vol]120 mg/iXGxvngr17-014CcqjkePremier Health Miami Valley Hospital SouthComment on above:Performed By: #### [id number] #### [facility] [address] [place], [place] [address]Lbpahtteo [Moles/Vol]4.2 mmol/LNormal3.5-5.3FMansfield HospitalComment on above:Performed By: #### [id number] #### [facility] [address] [place], [place] [address]Tatujv [Moles/Vol]136 mmol/YHxncal406-524RzsrezPremier Health Miami Valley Hospital SouthComment on above:Performed By: #### [id number] #### [facility] [address] [place], [place] [address]Wftq nitrogen [Mass/Vol]11 mg/dLNormal5-21Prem[facility] Hospital SouthComment on above:Performed By: #### [id number] #### [facility] [address] [place], [place] [address]Xoqu nitrogen/Creatinine [Mass ratio]16 No MpazfDndtlq59-49 [facility] Hospital SouthComment on above:Performed By: #### [id number] #### [facility] [address] [place], [place] [address]MFXzg 91-15-9059Tehnybewvih peptide B (Bld) [Mass/Vol]12 pg/mL Normal5-80Prem[facility] Miami [facility] Hospital SouthComment on above:Performed By: #### [id number] #### [facility] [address] [place], [place] [address]ISOEISCAGZvwaexc By: SYSTEM SYSTEM on 71-46-8818Oxyko gap [Moles/Vol]13 mmol/LNormal6 - 16 mEq/LRemisol ChemCalcium [Mass/Vol]9.6 mg/dL Normal8.9 - 11.1 mg/dLRemisol ChemChloride [Moles/Vol]103 mmol/PIylzic052 - 111 mmol/LRemisol ChemCholesterol [Mass/Vol]217 mg/wQIjum103 - 200 mg/dLRemisol Chem Cholesterol in HDL [Mass/Vol]54 mg/dLInvalid Interpretation CodeRemisol Chem Comment on above:Result Comment: '>= 60 LOW RISK' '<= 40 HIGH RISK'Cholesterol in LDL [Mass/Vol]107 mg/dLNormal<=129mg/dLRemisol ChemCholesterol in VLDL [Mass/Vol]77 mg/dLHigh7 - 40 mg/dLRemisol ChemCO2 [Moles/Vol]24 mmol/SSqhufj44 - 31 mmol/LRemisol ChemCreatinine [Mass/Vol]0.7 mg/dLNormal0.5 - 1.3 mg/dLRemisol PhjviFHO609 mL/min/1.73 s1Pgojqf >=59mL/min/1.73 y6Lfwlyxn ChemGlucose [Mass/Vol]120 mg/uMZbxfje84 - 199 mg/dL Remisol ChemPotassium [Moles/Vol]4.2 mmol/LNormal3.5 - 5.3 mmol/LRemisol Chem Sodium [Moles/Vol]136 mmol/IEklhmp471 - 145 mmol/LRemisol ChemTriglyceride [Mass/Vol]384 mg/dLHigh<=149mg/dLRemisol ChemUrea nitrogen [Mass/Vol]11 mg/dL Normal5 - 21 mg/dLRemisol ChemUrea nitrogen/Creatinine [Mass ratio]16 mg/mg Uykxyh34 - 20Remisol ChemCHEMISTRYOrdered By: Yudy Aldrich on 07-24-2024 Natriuretic peptide B (Bld) [Mass/Vol]12 pg/mLNormal5 - 80 pg/mLThe [facility] Lipid Panelon 73-51-4427Ottranlqfzv [Mass/Vol]217 mg/qJPbil799-273TneijtPremier Health Miami Valley Hospital SouthComment on above:Performed By: #### [id number] #### [facility] [address] [place], [place] [address]Adlphcvprrq in HDL [Mass/Vol]54 mg/dLInvalid Interpretation [facility] Hospital - CincinnatiComment on above:Result Comment: '>= 60 LOW RISK' '<= 40 HIGH RISK'Performed By: #### [id number] #### [facility] [address] [place], [place] [address]Yzyyxeszegl in LDL [Mass/Vol]107 mg/dLNormal<=129Prem[facility] Hospital SouthComment on above:Performed By: #### [id number] #### [facility] [address] [place], [place] [address]Hgqdmlqquhc in VLDL [Mass/Vol]77 mg/dLHigh7-40Prem[facility] Hospital SouthComment on above:Performed By: #### [id number] #### [facility] [address] [place], [place] [address]Eezknewteoup [Mass/Vol]384 mg/dLHigh<=149Prem[facility] Hospital SouthComment on above:Performed By: #### [id number] #### [facility] [address] [place], [place] [address]hTICxd 60-40-8738gWHG242 mL/min/1.73 l7Pnsatk>=59Premier Health Miami Valley Hospital SouthComment on above:Performed By: #### [id number] #### [facility] [address] [place], [place] [address]LHT 12-LEADon 78-25-7201[address] [address] Electrocardiograph Report Signed Patient: ELICEO KENNY MR#: [id number] : 1965 Acct:[id number] Age/Sex: 58 / M ADM Date: 06/02/24 Loc: [place] 215-[address]: Shaikh Eddie Avila Ordering Physician: Shazia Arias Date of Service: 06/02/24 Procedure(s): ECG 12 lead Accession Number(s): [id number] cc: [facility] Test Date: 2024-06-02 Pat Name: ELICEO KENNY Department: Room: - 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 Signed By: 06/03/24627 DD/ 18 TD/TT: Unix Engineer: AMA [place] 12-LEADOrdered By: Alyssa Radiology on 27-20-2816[facility] Work Phone: ECG 12-LEADon [id number] Study observation (narrative)AMA HealthcareHeart and Vascular Office/Clinic Noteon 05-25-2024 Heart and Vascular Office/Clinic NoteHeart and Vascular Office/Clinic Note Chief Complaint 6 [...] He is a former patient of Dr. Ocampo'swati who was seen by Dr. Rosales last [...] or concerning lesions Assessment/Plan 1. 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 For now, we will continue DAPT.Fasting lipids will be ordered 2. Cardiomyopathy (I42.9: [...] range of 35% with grade 2 mitral regurgitation.[facility] - AndersonComment on above: Result Comment: Electronically Signed By: Jaleesa SOLIS, Blanco Montenegro\.br\Date and Time Signed: 05/25/24 11:41 EDTXR Chest 2 Viewson 54-20-6952YMIW changes, parenchymal and pleural-based findings consistent with interstitial lung disease, specifically asbestosis. Correlate with appropriate occupational exposure history. TRANSCRIBED BY: ELECTRONICALLY SIGNED BY: Demar Garcia MDIMAGINGFINDINGS: Comparison February 26, 2023. Mild increase in lung volumes. No new infiltrates, parenchymal consolidation or pulmonary edema. Diffuse interstitial prominence. Calcified and noncalcified bilateral in profile pleural plaques. IMAGINGSpirDemar sierra MD - 01/13/2024 FINDINGS: Comparison February 26, 2023. Mild increase in lung volumes. No new infiltrates, parenchymal consolidation or pulmonary edema. Diffuse interstitial prominence. Calcified and noncalcified bilateral in profile pleural plaques. IMPRESSION: COPD changes, parenchymal and pleural-based findings consistent with interstitial lung disease, specifically asbestosis. Correlate with appropriate occupational exposure history. 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 Authentication Interface Message TextAddended by: JOHN COLLIER on: 12/29/2023 12:25 PM Modules accepted: [facility] SystemOffice Visit (Cardiology)on 47-06-8438Qqkiik-up visitDiagnoses/Problems Assessed Atherosclerosis of coronary artery of jena heart without angina pectoris (414.01) (I25.10) Essential [...] (Z01.810) Orders Atherosclerosis of coronary artery of jena heart without angina pectoris Renew: Atorvastatin Calcium 80 MG Oral Tablet; TAKE 1 TABLET BY MOUTH EVERYDAY AT BEDTIME Renew: Carvedilol 6.25 MG Oral Tablet; take 1 tablet by mouth twice a day Renew: Clopidogrel Bisulfate 75 MG Oral Tablet; TAKE 1 TABLET BY MOUTH EVERY DAY Atherosclerosis of coronary artery of jena heart without angina pectoris, Preoperative cardiovascular examination NM Cardiac Stress/Rest Nuclear Med Order; Status:Hold For - Scheduling,Retrospective By Protocol Authorization; Requested for:19Aug2022; Radiologist to [...] we can help. You may also call 3-224-ODOZSkyFuelNOW for free resources and assistance.; Status:Complete - [...] stress test. Colostomy reversal with Dr. [facility] General Surgery, Fax: [phone] Follow up in 9-12 months Chief Complaint [...] of Encounter for assessment of automatic implantable cardioverter-defibrillator (AICD) (V53.32) (Z45.02) Resolved Date: 07 Jan [...] 3 TIMES DAILY N (more content not included)...NormalUH TouchworksTobacco Screening.on 78-38-5925Tjmdk depression screening assessmentNo-[facility] HTP 250 DO Work Phone: Tobacco use status CPHSb) [facility] 250 DO Work Phone: CBC AUTO DIFFon 92-45-3130TRHF #0.0 103/ulNormal 0.0-0.1The [facility] Medical CenterComment on above:Performed By: #### CMREP #### [facility] Laboratory [address] [place] [address] Dr. Wilda PatelBasophils/100 WBC (Bld)0.5 %Normal0.2-2.0[facility] Comment on above:Performed By: #### CMREP #### [facility] [address] [place] [address] Dr. Wilda Carr #0.1 103/ulNormal0.0-0.7The [facility] Medical CenterComment on above: Performed By: #### CMREP #### [facility] [address] [address] [address] Wilda Cantuosinophils/100 WBC (Bld)0.8 %Critically low0.9-7.0The [facility] CenterComment on above:Performed By: #### CMREP #### [facility] [address] [place] [address] Dr. Wilda Canturythrocyte distribution width (RBC) [Ratio]12.3 %Rvoujt15.0-15.0 [facility] Medical CenterComment on above:Performed By: #### CMREP #### [facility] [address] [address] [address] Wilda PatelHematocrit (Bld) [Volume fraction]41.9 %Critically low42.0-54.0 The [facility] CenterComment on above:Performed By: #### CMREP #### [facility] [address] [place] [address] Dr. Wilda PatelHemoglobin (Bld) [Mass/Vol]14.6 g/oQFnhsut83.0-18.0The [facility] CenterComment on above:Performed By: #### CMREP #### [facility] [address] [place] [address] Dr. Wilda Candelario #0.03 10e3/ulNormal0.00-0.03The [facility] CenterComment on above:Performed By: #### CMREP #### [facility] [address] [place] [address] Dr. Wilda Candelario %0.5 %Normal0.0-0.5The [facility] CenterComment on above: Performed By: #### CMREP #### [facility] [address] [place] [address] Dr. Wilda Pabon #1.7 103/ulNormal1.2-3.8The [facility] CenterComment on above:Performed By: #### CMREP #### [facility] [address] [place] [address] Dr. Wilda Barrettmphocytes/100 WBC (Bld)26.2 %Yicpio18.5-60.0[facility] Medical CenterComment on above:Performed By: #### CMREP #### [facility] [address] [place] [address] Dr. Wilda SalgueroUAL DIFF REQNONormalThe [facility] CenterComment on above: Performed By: #### CMREP #### [facility] [address] [place] [address] Dr. Wilda Clark (RBC) [Entitic mass]32.9 fuKfrnhm63.9-34.0The [facility] CenterComment on above:Performed By: #### CMREP #### [facility] [address] [place] [address] Dr. Wilda Whitaker (RBC) [Mass/Vol]34.8 g/tTRyavqb48.9-35.2The [facility] CenterComment on above:Performed By: #### CMREP #### [facility] [address] [place] [address] Dr. Wilda Whitaker (RBC) [Entitic vol]94.4 fLCritically high80.0-94.0The [facility] CenterComment on above:Performed By: #### CMREP #### [facility] [address] [place] [address] Dr. Wilda Georges #0.6 103/ulNormal0.3-0.8The [facility] CenterComment on above:Performed By: #### CMREP #### [facility] [address] [place] [address] Dr. Wilda Castroocytes/100 WBC (Bld)9.1 %Normal1.7-12.0The [facility] Comment on above:Performed By: #### CMREP #### [facility] [address] [place] [address] Dr. Wilda Berry #4.1 103/ulNormal1.4-6.5The [facility] CenterComment on above:Performed By: #### CMREP #### [facility] [address] [place] [address] Dr. Wilda Coronadoutrophils/100 WBC (Bld)62.9 %Wouadl27.0-75.0The [facility] CenterComment on above:Performed By: #### CMREP #### [facility] [address] [place] [address] Dr. Wilda Acostalet mean volume (Bld) [Entitic vol]10.0 fLNormal9.5-13.5The [facility] CenterComment on above:Performed By: #### CMREP #### [facility] [address] [place] [address] Dr. Wilda RomeT182 103/cmTmyavk753-769Wto [facility] CenterComment on above: Performed By: #### CMREP #### [facility] [address] [place] [address] Dr. Wilda PatelRBC4.44 106/ulCritically low4.70-6.10The [facility] CenterComment on above:Performed By: #### CMREP #### [facility] [address] [place] [address] Dr. Wilda PatelWBC6.5 103/ulNormal4.0-11.0The [facility] CenterComment on above: Performed By: #### CMREP #### [facility] [address] [place] [address] Dr. Wilda PatelMAGNESIUMon [id number] [Mass/Vol]2.4 mg/dLNormal1.8-2.4 The [facility] CenterComment on above:Performed By: #### CMREP #### [facility] [address] [place] [address] Dr. Wilda PatelPROF CHEM 8 (BAS METB)on 90-86-1211Kjoqs gap [Moles/Vol]12.8 mmol/LNormalThe [facility] CenterComment on above:Performed By: #### CMREP #### [facility] [address] [place] [address] Dr. Wilda PatelCalcium [Mass/Vol]8.3 mg/dLCritically low8.5-10.1The [facility] CenterComment on above:Performed By: #### CMREP #### [facility] [address] [place] [address] Dr. Wilda PatelChloride [Moles/Vol]97 mmol/LCritically wgp64-381Jmw [facility] CenterComment on above:Performed By: #### CMREP #### [facility] [address] [place] [address] Dr. Wilda PatelCO2 [Moles/Vol]24.5 mmol/TSfzecn30.0-32.0The [facility] Comment on above:Performed By: #### CMREP #### [facility] [address] [address] [address] Wilda PatelCreatinine [Mass/Vol]0.76 mg/dLNormal0.70-1.30The [facility] Hospitalment on above:Performed By: #### CMREP #### [facility] [address] [address] [address] Astudillo ChangEGFR-AF MONTENEGRIN>60Normal>=60The [facility] CenterComment on above:Performed By: #### CMREP #### [facility] [address] [address] [address] Wilda CantuGFR-NON AF MONTENEGRIN>60Normal>=60The [facility] on above:Performed By: #### CMREP #### [facility] [address] [place] [address] Dr. Wilda PatelGlucose [Mass/Vol]98 mg/iXIrxqfq69-970Hrw [facility] Comment on above:Performed By: #### CMREP #### [facility] [address] [address] [address] Wilda PatelPotassium [Moles/Vol]3.3 mmol/LCritically low3.5-5.1The [facility] on above:Performed By: #### CMREP #### [facility] [address] [address] [address] Wilda PatelSodium [Moles/Vol]131 mmol/LCritically dac036-966Kwv [facility] on above:Performed By: #### CMREP #### [facility] [address] [address] [address] Wilda PatelUrea nitrogen [Mass/Vol]10.0 mg/dLNormal7.0-18.0The [facility] Hospitalment on above:Performed By: #### CMREP #### [facility] [address] [address] [address] Wilda PatelUrea nitrogen/Creatinine [Mass ratio]13.2 mg/mgNormalThe [facility] CenterComment on above:Performed By: #### CMREP #### [facility] [address] [place] [address] Dr. Wilda HERBERT 3-6on [id number] [Catalytic activity/Vol]108 U/L Lotksm55-588JlvPremier Health Atrium Medical CenterComment on above:Performed By: #### ERUR #### [facility] [address] [place] [address] Dr. Wilda Louise.MB [Mass/Vol]2.69 ng/mLNormal<=3.60[facility] Comment on above:Performed By: #### ERUR #### [facility] [address] [place] [address] Dr. Wilda Mak29.0 pg/mLNormal4.0-76.1The [facility] CenterComtrinity [facility] on above:Result Comment: CUT-OFF POINTS HAVE BEEN ESTABLISHED BASED ON THE FOURTH UNIVERSAL DEFINITIONS OF MYOCARDIAL INFARCTION. THE UPPER REFERENCE LIMIT (URL) OF TROPONIN, DEFINED THE 99TH PERCENTILE OF cTnI DISTRIBUTION IN A REFERENCE POPULATION, HAS BEEN CONFIRMED THE DECISION THRESHOLD FOR MA DIAGNOSIS.Performed By: #### ERUR #### [facility] [address] [place] [address] Dr. Wilda Louise [Catalytic activity/Vol]114 U/ASxalqq82-447Dqp [facility] CenterComment on above:Performed By: #### CMREP #### [facility] [address] [place] [address] Dr. Wilda Louise.MB [Mass/Vol]2.60 ng/mLNormal<=3.60The [facility] Comment on above:Performed By: #### CMREP #### [facility] [address] [place] [address] Dr. Wilda Mak26.7 pg/mLNormal4.0-76.1The [facility] on above:Result Comment: CUT-OFF POINTS HAVE BEEN ESTABLISHED BASED ON THE FOURTH UNIVERSAL DEFINITIONS OF MYOCARDIAL INFARCTION. THE UPPER REFERENCE LIMIT (URL) OF TROPONIN, DEFINED THE 99TH PERCENTILE OF cTnI DISTRIBUTION IN A REFERENCE POPULATION, HAS BEEN CONFIRMED THE DECISION THRESHOLD FOR MA DIAGNOSIS.Performed By: #### CMREP #### [facility] [address] [place] [address] Dr. Wilda Baxter AUTO DIFFon [id number] #0.0 103/ulNormal0.0-0.1The [facility] CenterComment on above:Performed By: #### ERUR #### [facility] [address] [place] [address] Dr. Wilda PatelBasophils/100 WBC (Bld)0.5 %Normal0.2-2.0The [facility] Comment on above:Performed By: #### ERUR #### [facility] [address] [place] [address] Dr. Wilda Carr #0.0 103/ulNormal0.0-0.7The [facility] CenterComment on above: Performed By: #### ERUR #### [facility] [address] [place] [address] Dr. Wilda Cantuosinophils/100 WBC (Bld)0.1 %Critically low0.9-7.0The [facility] CenterComment on above:Performed By: #### ERUR #### [facility] [address] [place] [address] Dr. Wilda Canturythrocyte distribution width (RBC) [Ratio]12.4 %Djiscg54.0-15.0 [facility] CenterComment on above:Performed By: #### ERUR #### [facility] [address] [place] [address] Dr. Wilda PatelHematocrit (Bld) [Volume fraction]42.3 %Yxmijw86.0-54.0The [facility] CenterComment on above:Performed By: #### ERUR #### [facility] [address] [place] [address] Dr. Wilda PatelHemoglobin (Bld) [Mass/Vol]15.0 g/nUFjaley31.0-18.0[facility] CenterComment on above:Performed By: #### ERUR #### [facility] [address] [place] [address] Dr. Wilda Candelario #0.01 10e3/ulNormal0.00-0.03The [facility] CenterComment on above:Performed By: #### ERUR #### [facility] [address] [place] [address] Dr. Wilda Candelario %0.1 %Normal0.0-0.5The [facility] CenterComment on above: Performed By: #### ERUR #### [facility] [address] [place] [address] Dr. Wilda Pabon #1.7 103/ulNormal1.2-3.8The [facility] HospitalComment on above:Performed By: #### ERUR #### [facility] [address] [place] [address] Dr. Wilda Ramirzehocytes/100 WBC (Bld)22.2 %Hixsmj04.5-60.0The [facility] CenterComment on above:Performed By: #### ERUR #### [facility] [address] [place] [address] Dr. Wilda SalgueroUAL DIFF REQNONormalThe [facility] CenterComment on above: Performed By: #### ERUR #### [facility] [address] [place] [address] Dr. Wilda Clark (RBC) [Entitic mass]33.1 odPoxaie71.9-34.0The [facility] CenterComment on above:Performed By: #### ERUR #### [facility] [address] [place] [address] Dr. Wilda Whitaker (RBC) [Mass/Vol]35.5 g/dLCritically high29.9-35.2The [facility] CenterComment on above:Performed By: #### ERUR #### [facility] [address] [place] [address] Dr. Wilda Cordon (RBC) [Entitic vol]93.4 rKMwjmcl90.0-94.0The [facility] CenterComment on above:Performed By: #### ERUR #### [facility] [address] [place] [address] Dr. Wilda Georges #0.7 103/ulNormal0.3-0.8The [facility] CenterComment on above:Performed By: #### ERUR #### [facility] [address] [place] [address] Dr. Wilda Castroocytes/100 WBC (Bld)9.7 %Normal1.7-12.0The [facility] Comment on above:Performed By: #### ERUR #### [facility] [address] [place] [address] Dr. Wilda Berry #5.2 103/ulNormal1.4-6.5The [facility] CenterComment on above:Performed By: #### ERUR #### [facility] [address] [place] [address] Dr. Wilda Coronadoutrophils/100 WBC (Bld)67.4 %Axnrcw47.0-75.0The [facility] CenterComment on above:Performed By: #### ERUR #### [facility] [address] [place] [address] Dr. Wilda Acostalet mean volume (Bld) [Entitic vol]9.4 fLCritically low 9.5-13.5The [facility] CenterComment on above:Performed By: #### ERUR #### [facility] [address] [place] [address] Dr. Wilda PatelPLT171 103/fiFeyady351-222Zkb [facility] CenterComment on above: Performed By: #### ERUR #### [facility] [address] [place] [address] Dr. Wilda VenturaC4.53 106/ulCritically low4.70-6.10The [facility] CenterComment on above:Performed By: #### ERUR #### [facility] [address] [place] [address] Dr. Wilda PatelWBC7.7 103/ulNormal4.0-11.0The [facility] CenterComment on above: Performed By: #### ERUR #### [facility] [address] [place], [place] [id number] Dr. Wilda PatelCT STROKE HEAD WOon [id number] STROKE HEAD WOEXAMINATION: CT STROKE HEAD WO HISTORY: Blurred vision, [...] Electronically authenticated by: SUREKHA QUESADA Date: 2022-07-21 22:22[facility] CenterA NECK WO W CONon [id number] NECK WO W CONEXAMINATION: CTA HEAD WO W CON, CTA NECK WO W [...] based on NASCET criteria. Electronically authenticated by: TRACI THACKER Date: 2022-07-22 01:01[facility] CenterCovid-19 PCR (CVDTBH)on [id number]-CoV-2 (COVID-19) RNA SHREYA+probe Ql (Unsp spec)Not detectedNormalNOT DETECTEDThe [facility] Comment on above:Result Comment: When diagnostic testing is negative, the [...] for this test is supported by the [place] of Health and Human Service's declaration that circumstances exist to justify the emergency use of in vitro diagnostics for the detection and/or diagnosis of the virus that causes COVID-19. This EUA will remain in effect for the duration of the COVID-19 declaration justifying emergency of IVDs, unless it is terminated or revoked by the FDA (after which the test may no longer be used).Performed By: #### LACT #### [facility] [address] [place] [address] Dr. Wilda WeirCARDIO M/2D COMPLETEon [id number] M/2D COMPLETE Patient: ELICEO KENNY Exam Date: 07/22/2022 : 1965 Gender:M Ordering : SHAIKH Mirtha JEAN . Admission #: [id number] Family : DR AARON OCAMPO M.D. Order #: [id number] CLICK HERE TO VIEW EXAM ECHOCARDIOGRAM REPORT [...] 3.95 cm Aortic Valve AoV Area (Peak Janeen): 4.05 cm2, 4.05 cm2 Peak Velocity(Antegrade Flow): 0.93 m/s Peak Gradient(Antegrade Flow): 3.46 mm[Hg] Tricuspid Valve Peak Velocity: 0.36 m/s Pulmonic Valve Peak Velocity: 0.91 m/s, 0.94 m/s Peak Gradient: 3.32 mm[Hg], 3.53 mm[Hg] Right Atrium Right Atrium Systolic Pressure: 34.44 ml, 34.44 ml Dictated by: Willy Jin M.D. on 07/28/2022 at 09:57 Approved by: Willy Jin M.D. on 07/28/2022 at 10:00[facility] Medical CenterLIPID PROFILEon [id number]-HDL RATIO NORMSWadsworth-Rittman HospitalComment on above:Result Comment: 3.3 - 4.4 LOW RISK 4.4 - 7.1 AVERAGE RISK 7.1 - 11.0 MODERATE RISK >11.0 HIGH RISKPerformed By: #### CMREP #### [facility] [address] [place] [address] Dr. Wilda PatelCholesterol [Mass/Vol]180 mg/dLNormal<=200[facility] Comment on above:Performed By: #### CMREP #### [facility] [address] [place] [address] Dr. Yilan ChangCholesterol in HDL [Mass/Vol]59 mg/zBIyteoj16-48Ziq [facility] CenterComment on above:Performed By: #### CMREP #### [facility] [address] [place] [address] Dr. Wilda PatelCholesterol in LDL [Mass/Vol]74.4 mg/dLKettering Health Behavioral Medical CenterComment on above:Performed By: #### CMREP #### [facility] [address] [place] [address] Dr. Wilda Simmons.total/Cholesterol in HDL [Mass ratio]3.1 {ratio} NormalPremier Health Atrium Medical CenterComtrinity health [facility] on above:Performed By: #### CMREP #### [facility] [address] [place] [address] Dr. Wilda Norwood NORMAL> or = 60 mg/dl - LOW CARDIOVASCULAR RISK <40 mg/dl - HIGH CARDIOVASCULAR RISKKettering Health Behavioral Medical CenterComtrinity health [facility] on above:Performed By: #### CMREP #### [facility] [address] [place] [address] Dr. Wilda PatelLDL CALC NORMALSEE BELOWKettering Health Behavioral Medical CenterComtrinity health [facility] on above:Result Comment: <100 mg/dl OPTIMAL 100 - 129 mg/dl NEAR OR ABOVE OPTIMAL 130 - 159 mg/dl BORDERLINE HIGH 160 - 189 mg/dl HIGH >190 mg/dl VERY HIGH Performed By: #### CMREP #### [facility] [address] [place] [address] Dr. Wilda PatelTriglyceride [Mass/Vol]233 mg/dLCritically high<=150The [facility] CenterComtrinity health [facility] on above:Performed By: #### CMREP #### [facility] [address] [place] [address] Dr. Wilda PatelVLDL CALC46.6 mg/dLKettering Health Behavioral Medical CenterComment on above: Performed By: #### CMREP #### [facility] [address] [place] [address] Dr. Wilda PatelMAGNESIUMon [id number] [Mass/Vol]2.3 mg/dLNormal1.8-2.4 The [facility] CenterComment on above:Performed By: #### BMP, MG #### [facility] [address] [address] [address] Wilda Lobo BRAIN WO CONon [id number] BRAIN WO CONEXAMINATION: MRI BRAIN WO CON, 07/22/2022 1:53 AM [...] Electronically authenticated by: CAROLYN REDDY Date: 2022-07-22 15:28[facility] Medical CenterPROF CHEM 8 (BAS METB)on [id number] gap [Moles/Vol]16.0 mmol/LNormalThe [facility] CenterComment on above:Performed By: #### BMP, MG #### [facility] [address] [place] [address] Dr. Wilda PatelCalcium [Mass/Vol]8.3 mg/dLCritically low8.5-10.1The [facility] CenterComment on above:Performed By: #### BMP, MG #### [facility] [address] [place] [address] Dr. Wilda PatelChloride [Moles/Vol]100 mmol/GPvcgat21-755LnqPremier Health Atrium Medical Center Comment on above:Performed By: #### BMP, MG #### [facility] [address] [place] [address] Dr. Wilda PatelCO2 [Moles/Vol]21.3 mmol/XMjjzqo97.0-32.0[facility] Comment on above:Performed By: #### BMP, MG #### [facility] [address] [address] [address] Wilda PatelCreatinine [Mass/Vol]0.70 mg/dLNormal0.70-1.30The [facility] Hospitalment on above:Performed By: #### BMP, MG #### [facility] [address] [address] [address] Astudillo ChangEGFR-AF MONTENEGRIN>60Normal>=60The [facility] on above:Performed By: #### BMP, MG #### [facility] [address] [address] [address] Wilda CantuGFR-NON AF MONTENEGRIN>60Normal>=60The [facility] on above:Performed By: #### BMP, MG #### [facility] [address] [address] [address] Wilda PatelGlucose [Mass/Vol]92 mg/xEFanxsr86-984Wtl [facility] Comment on above:Performed By: #### BMP, MG #### [facility] [address] [address] [address] Wilda PatelPotassium [Moles/Vol]3.3 mmol/LCritically low3.5-5.1The [facility] on above:Performed By: #### BMP, MG #### [facility] [address] [address] [address] Wilda PatelSodium [Moles/Vol]134 mmol/LCritically vkp534-338Jmk [facility] on above:Performed By: #### BMP, MG #### [facility] [address] [address] [address] Wilda PatelUrea nitrogen [Mass/Vol]12.0 mg/dLNormal7.0-18.0The [facility] on above:Performed By: #### BMP, MG #### [facility] [address] [address] [address] Wilda PatelUrea nitrogen/Creatinine [Mass ratio]17.1 mg/mgNormalThe [facility] CenterComment on above:Performed By: #### BMP, MG #### [facility] [address] [place] [address] Dr. Wilda Wilson 65-29-9479XMJ15.049 uIU/mLCritically high0.358-3.740The [facility] CenterComment on above:Performed By: #### LIPID, TSH #### [facility] [address] [place] [address] Dr. Wilda PatelXR CHEST 1 Von [id number] CHEST 1 VEXAMINATION: XR CHEST 1 V HISTORY: Chest pain COMPARISON: Portable chest 06/14/2021 TECHNIQUE: Portable chest FINDINGS: The lung parenchyma is free of consolidation or infiltrate. No pneumothorax or pleural effusion. The cardiac, mediastinal and hilar contours are normal. The visualized osseous structures exhibit no gross abnormality. IMPRESSION: No acute cardiopulmonary abnormality. Electronically authenticated by: CAROLYN TRACY Date: 2022-07-21 22:18NoMer[address] [facility] Boardman HospitalXR FOREIGN BODY EYEon [id number] FOREIGN BODY EYEEXAMINATION: XR FOREIGN BODY EYE HISTORY: Foreign body in eye COMPARISON: No relevant comparison available. FINDINGS: ORBITS: Negative for a metallic foreign body. OTHER: Negative. IMPRESSION: No metallic foreign body in the orbits Electronically authenticated by: CAROLYN REDDY Date: 2022-07-22 12:09[facility] Medical CenterCARDIAC KEON ADMITon [id number] [Catalytic activity/Vol]123 U/EWzxegc81-596Vqj [facility] CenterComment on above:Performed By: #### CMREP #### [facility] [address] [place] [address] Dr. Wilda Louise.MB [Mass/Vol]3.11 ng/mLNormal<=3.60[facility] Comment on above:Performed By: #### CMREP #### [facility] [address] [place] [address] Dr. Wilda PatelHSTROP23.3 pg/mLNormal4.0-76.1The [facility] CenterComment on above:Result Comment: CUT-OFF POINTS HAVE BEEN ESTABLISHED BASED ON THE FOURTH UNIVERSAL DEFINITIONS OF MYOCARDIAL INFARCTION. THE UPPER REFERENCE LIMIT (URL) OF TROPONIN, DEFINED THE 99TH PERCENTILE OF cTnI DISTRIBUTION IN A REFERENCE POPULATION, HAS BEEN CONFIRMED THE DECISION THRESHOLD FOR MA DIAGNOSIS.Performed By: #### CMREP #### [facility] [address] [place] [address] Dr. Wilda AllenO136 ng/mLCritically xvrb15-45Cox [facility] CenterComment on above:Performed By: #### CMREP #### [facility] [address] [place] [address] Dr. Wilda VidalC AUTO DIFFon 22-15-3598CNXI #0.0 103/ulNormal0.0-0.1The [facility] CenterComment on above:Performed By: #### ERUR #### [facility] [address] [place] [address] Dr. Wilda PatelBasophils/100 WBC (Bld)0.3 %Normal0.2-2.0[facility] Comment on above:Performed By: #### ERUR #### [facility] [address] [place] [address] Dr. Wilda Carr #0.0 103/ulNormal0.0-0.7The [facility] CenterComment on above: Performed By: #### ERUR #### [facility] [address] [place] [address] Dr. Wilda Cantuosinophils/100 WBC (Bld)0.1 %Critically low0.9-7.0The [facility] CenterComment on above:Performed By: #### ERUR #### [facility] [address] [place] [address] Dr. Wilda Canturythrocyte distribution width (RBC) [Ratio]12.3 %Gbzofa99.0-15.0 The [facility] CenterComment on above:Performed By: #### ERUR #### [facility] [address] [place] [address] Dr. Wilda PatelHematocrit (Bld) [Volume fraction]47.4 %Ihgnnn87.0-54.0The [facility] CenterComment on above:Performed By: #### ERUR #### [facility] [address] [address] [address] Wilda PatelHemoglobin (Bld) [Mass/Vol]16.8 g/bVOunnyo50.0-18.0The [facility] CenterComment on above:Performed By: #### ERUR #### [facility] [address] [place] [address] Dr. Wilda Candelario #0.04 10e3/ulCritically high0.00-0.03The [facility] Comment on above:Performed By: #### ERUR #### [facility] [address] [place] [address] Dr. Wilda Candelario %0.4 %Normal0.0-0.5The [facility] CenterComment on above: Performed By: #### ERUR #### [facility] [address] [place] [address] Dr. Wilda Pabon #1.6 103/ulNormal1.2-3.8The [facility] CenterComment on above:Performed By: #### ERUR #### [facility] [address] [place] [address] Dr. Wilda Ramirezhocytes/100 WBC (Bld)15.7 %Critically low20.5-60.0The [facility] CenterComment on above:Performed By: #### ERUR #### [facility] [address] [place] [address] Dr. Wilda SalgueroUAL DIFF REQNONormalThe [facility] CenterComment on above: Performed By: #### ERUR #### [facility] [address] [place] [address] Dr. Wilda Whitaker (RBC) [Entitic mass]32.9 kjLlwufb24.9-34.0The [facility] CenterComment on above:Performed By: #### ERUR #### [facility] [address] [place] [address] Dr. Wilda Whitaker (RBC) [Mass/Vol]35.4 g/dLCritically high29.9-35.2The [facility] CenterComment on above:Performed By: #### ERUR #### [facility] [address] [place] [address] Dr. Wilda WhitakerV (RBC) [Entitic vol]92.9 uLTwibij02.0-94.0The [facility] CenterComment on above:Performed By: #### ERUR #### [facility] [address] [place] [address] Dr. Wilda Georges #0.9 103/ulCritically high0.3-0.8The [facility] Comment on above:Performed By: #### ERUR #### [facility] [address] [place] [address] Dr. Wilda Castroocytes/100 WBC (Bld)9.3 %Normal1.7-12.0[facility] Comment on above:Performed By: #### ERUR #### [facility] [address] [place] [address] Dr. Wilda Berry #7.4 103/ulCritically high1.4-6.5Th[facility] Comment on above:Performed By: #### ERUR #### [facility] [address] [place] [address] Dr. Wilda Coronadoutrophils/100 WBC (Bld)74.2 %Ayozvs54.0-75.0The [facility] CenterComment on above:Performed By: #### ERUR #### [facility] [address] [place] [address] Dr. Wilda Acostalet mean volume (Bld) [Entitic vol]9.6 fLNormal9.5-13.5ThParkview Health Bryan HospitalComment on above:Performed By: #### ERUR #### [facility] [address] [place] [address] Dr. Wilda PatelPLT216 103/byLplppf836-948Wst [facility] CenterComment on above: Performed By: #### ERUR #### [facility] [address] [place] [address] Dr. Wilda PatelRBC5.10 106/ulNormal4.70-6.10The [facility] CenterComment on above:Performed By: #### ERUR #### [facility] [address] [address] [address] Wilda PatelWBC9.9 103/ulNormal4.0-11.0The [facility] CenterComment on above: Performed By: #### ERUR #### [facility] [address] [place] [address] Dr. Wilda PatelPOINT OF CARE GLUCOSEon 23-22-7301Uavltae [Mass/Vol]113 mg/dL Critically ciga20-672Hcr [facility] CenterComment on above:Performed By: #### ERUR #### [facility] [address] [place] [address] Dr. Wilda Álvarez 14(COMP METB)on 24-07-1566Sjccupk [Mass/Vol]3.9 g/dLNormal 3.4-5.0The [facility] CenterComment on above:Performed By: #### CMREP #### [facility] [address] [place] [address] Dr. Wilda PatelAlbumin/Globulin [Mass ratio]1.0 {ratio}NormalThe [facility] CenterComment on above:Performed By: #### CMREP #### [facility] [address] [place] [address] Dr. Wilda Prescott [Catalytic activity/Vol]137 U/LCritically fvvp12-669Rrg [facility] CenterComment on above:Performed By: #### CMREP #### [facility] [address] [place] [address] Dr. Wilda Ramirez [Catalytic activity/Vol]16 U/SSxkoik56-48Dch [facility] CenterComment on above:Performed By: #### CMREP #### [facility] [address] [place] [address] Dr. Wilda Nelson gap [Moles/Vol]16.7 mmol/LNormalThe [facility] Comment on above:Performed By: #### CMREP #### [facility] [address] [place] [address] Dr. Yilan ChangAST [Catalytic activity/Vol]18 U/TQuhwhc35-70Zsr [facility] CenterComment on above:Performed By: #### CMREP #### [facility] [address] [place] [address] Dr. Wilda PatelBilirubin [Mass/Vol]2.1 mg/dLCritically high0.2-1.0The [facility] CenterComment on above:Performed By: #### CMREP #### [facility] [address] [place] [address] Dr. Wilda PatelCalcium [Mass/Vol]9.2 mg/dLNormal8.5-10.1The [facility] Comment on above:Performed By: #### CMREP #### [facility] [address] [place] [address] Dr. Wilda PatelChloride [Moles/Vol]96 mmol/LCritically pms42-127Frr [facility] CenterComment on above:Performed By: #### CMREP #### [facility] [address] [place] [address] Dr. Wilda PatelCO2 [Moles/Vol]23.8 mmol/UZhshjv02.0-32.0The [facility] Comment on above:Performed By: #### CMREP #### [facility] [address] [place] [address] Dr. Wilda PatelCreatinine [Mass/Vol]0.92 mg/dLNormal0.70-1.30The [facility] CenterComment on above:Performed By: #### CMREP #### [facility] [address] [place] [address] Dr. Wilda CantuGFR-AF MONTENEGRIN>60Normal>=60The [facility] CenterComment on above:Performed By: #### CMREP #### [facility] [address] [place] [address] Dr. Wilda CantuGFR-NON AF MONTENEGRIN>60Normal>=60The [facility] CenterComment on above:Performed By: #### CMREP #### [facility] [address] [place] [address] Dr. Wilda PatelGlobulin (S) [Mass/Vol]4.0 g/dLNormOur Lady of Mercy Hospital - AndersonComment on above:Performed By: #### CMREP #### [facility] [address] [place] [address] Dr. Wilda PatelGlucose [Mass/Vol]112 mg/dLCritically himi88-411Ujh [facility] CenterComment on above:Performed By: #### CMREP #### [facility] [address] [place] [address] Dr. Wilda PatelPotassium [Moles/Vol]3.5 mmol/LNormal3.5-5.1The [facility] Comment on above:Performed By: #### CMREP #### [facility] [address] [place] [address] Dr. Wilda PatelProtein [Mass/Vol]7.9 g/dLNormal6.4-8.2The [facility] Comment on above:Performed By: #### CMREP #### [facility] [address] [place] [address] Dr. Wilda PatelSodium [Moles/Vol]133 mmol/LCritically czt137-380Hck [facility] CenterComment on above:Performed By: #### CMREP #### [facility] [address] [place] [address] Dr. Wilda PatelUrea nitrogen [Mass/Vol]15.0 mg/dLNormal7.0-18.0The [facility] CenterComment on above:Performed By: #### CMREP #### [facility] [address] [place] [address] Dr. Wilda PatelUrea nitrogen/Creatinine [Mass ratio]16.3 mg/mgNoMercy Health St. Elizabeth Boardman HospitalComment on above:Performed By: #### CMREP #### [facility] [address] [place] [address] Dr. Wilda PatelPROTIMEon 38-53-4901GAE Coag (PPP) [Relative time]1.00 {INR} NormalThe [facility] CenterComment on above:Performed By: #### PTT, PT #### [facility] [address] [address] [address] Wilda Barragan GUIDELINESSEE BELOWNoMercy Health St. Elizabeth Boardman HospitalComment on above:Result Comment: DESIRED INR: 2.0 - 3.0 CONDITIONS NOT LISTED BELOW 2.5 - 3.5 FOR PROSTHETIC HEART VALVE REPLACEMENT 2.5 - 3.5 RECURRENT THROMBOSIS Performed By: #### PTT, PT #### [facility] [address] [address] [address] Wilda Rehman Coag (PPP) [Time]10.8 sNormal9.0-11.6The [facility] Comment on above:Performed By: #### PTT, PT #### [facility] [address] [place] [address] Dr. Wilda Berrios 13-53-9296nRYV Coag (Bld) [Time]28.8 tZkkvoz27.3-36.2[facility] CenterComment on above:Performed By: #### PTT, PT #### [facility] [address] [place] [address] Dr. Wilda Mahmood T4 (Free Thyroxine)on 46-56-3880Rnya T4 [Mass/Vol]0.60 ng/dL Low0.61-1.12Uk HealthcareComment on above:Performed By: #### [id number], TSH3 wRFLX, T4F #### [facility] [address] [place] [address] USANo Panel InformationOrdered By: Medhat Baltazar on 19-72-672041911808-Heweutx Vitamin D Total8.1 ng/kQ18-785VtoibitabUk HealthcareComment on above:VITAMIN D STATUS 25(OH)VITAMIN D RANGE (ng/mL) Deficient <20 Insufficient 20 to <11Hpdecpeisr66 to 100Reference: Jay MF,Franklyn NC, Isaac FRANCES, et al. Evaluation,treatment, and prevention of vitamin D deficiency; an Endocrine Society clinical practice guideline. JCEM. 2010; 96 (7):1911-30.TSH DL <= 0.005 mIU/L QnOrdered By: Medhat Baltazar on 06-08-2022 TSH Qn28.54 m[IU]/L0.45-5.33Uk HealthcareThyroid Stim Hormone w/Rflxon 24-99-1856Hsfdwej Stim Hormone w/Rflx28.54 u[iU]/mLHigh 0.45-5.33Uk HealthcareComment on above:Performed By: #### LIPID, TSH3 wRFLX, CBC, [id number], T4F, CMP, MYNP05DKG, LDLD, A1C WT eA #### [facility] [address] [place] [address] USAThyroxine (T4) free [Mass/volume] in Serum or Plasma Ordered By: Medhat Baltazar on 08-75-1324Dxmk T4 [Mass/Vol]0.60 ng/dL0.61-1.12 Uk HealthcareVitamin D 25 Hydroxy Totalon 87-62-8724Xuwjbcp D 25 Hydroxy Total8.1 ng/dSIrz09-123ClwcuffhqUk HealthcareComment on above:Result Comment: VITAMIN D STATUS 25(OH)VITAMIN D RANGE (ng/mL) Deficient <20 Insufficient 20 to <30 Sufficient 30 to 100 Reference: Jay MF,[place] NC, Sanna-Chi FRANCES, et al. Evaluation,treatment, and prevention of vitamin D deficiency; an Endocrine Society clinical practice guideline. JCEM. 2010; 96(7):1911-30. PERFORMED BY: [address] [address] PATHOLOGIST BUSINESS BANKER MARCO ANTONIO FINLEY M.D.Performed By: #### LIPID, TSH3 wRFLX, CBC, [id number], T4F, CMP, ZBKX43SQP, LDLD, A1C WT eA #### [facility] [address] [place] [address] USANO MUGA SCAN INJECTIONon 34-55-1295OZA MUGA SCAN INJECTIONMRN: [id number] Patient Name: ELICEO KENNY STUDY: MUGA Performing facility: [facility], [address] [place] [address], [address], [place] [address] [facility] Provider: Darlin Ocampo MD, FACC PCP: Dr. Kelley Supervising provider: Ben Meyers MD INDICATION: Encounter for ICD HISTORY: Gender: M; Age: 56 y/o ; Height: 167.64 cm; Weight: 97.6432710 kg. CAD; High Cholesterol; Previous MA; HTN; COPD; Ischemic cardiomyopathy Currently smoking. Cardiac catheterization on 2018. PTCA on 2018. COMPARISON: Previous nuclear testing completed [id number] Muga at [facility]. ACCESSION NUMBER(S): [id number]; [id number] ORDERING CLINICIAN: AARON OCAMPO TECHNIQUE: The patient [...] was abnormal. Global resting LVEF was globally ghmuuspetgy08 at %. IMPRESSION: Mild resting right ventricular hypokinesis Abnormalresting left ventricular function. Left ventricular ejection fraction is 35%. No change when compared to prior study Electronically signed by: BEN MEYERS MDExcela Westmoreland HospitalNo Panel Informationon 11-95-2773OhfwuoZHSteven [facility] 250 DO Work Phone: A1C with Estimated Average Gluon 25-60-8634Rupxfmi [Mass/Vol]111 mg/dLKettering Health Greene MemorialComment on above: Result Comment: PERFORMED BY: [facility] [address] [id number] PATHOLOGIST BUSINESS BANKER MARCO ANTONIO FINLEY M.D.Performed By: #### LIPID, TSH3 wRFLX, CBC, [id number], T4F, CMP, NZGP58ZPD, LDLD, A1C [facility] #### [facility] [address] [place] [address] EEOEhH3h (Bld) [Mass fraction]5.5 %Normal4.3-5.6FAkron Children's HospitalComment on above:Result Comment: Increased risk for diabetes: 5.7 - 6.4 diabetes: >6.4 glycemic control for adults with diabetes: <7.0Performed By: #### LIPID, TSH3 wRFLX, CBC, [id number], T4F, CMP, [id number], LDLD, A1C WTH #### [facility] [address] [place] [address] USABasophils Auto (Bld) [#/Vol]Ordered By: Medhat Baltazar on 86-46-8516Wqbcxgcbc (Bld) [#/Vol]0.0 10*3/uL0.0-0.2FAkron Children's HospitalBasophils/100 WBC Auto (Bld)Ordered By: Medhat Baltazar on 03-12-2022 Basophils/100 WBC (Bld)0.6 %.Uk HealthcareBlood hemoglobin measurement (mass/volume)Ordered By: Medhat Baltazar on 64-55-4922Qktdabmvrv (Bld) [Mass/Vol]14.8 g/dL13.0-17.0Uk HealthcareBlood leukocytes automated count (number/volume)Ordered By: Medhat Baltazar on 96-06-5267ENX (Bld) [#/Vol]5.3 10*3/uL4.5-11.0[facility] Body fluid albumin measurement (mass/volume)Ordered By: Medhat Baltazar on 33-25-3076Snchjpc (Body fld) [Mass/Vol]3.7 g/dL3.2-5.5FAkron Children's HospitalCholesterol [Mass/volume] in Serum or PlasmaOrdered By: Medhat Baltazar on 19-47-2725Rarpedfpzwt [Mass/Vol]157 mg/vN059-888JdnxirziyUk HealthcareComment on above:Chol less than 200 mg/dl low risk Chol 201-239 mg/dl borderline risk Chol 240 mg/dl and greater high riskChol less than 200 mg/dl low riskChol 201- 239 mg/dl borderline riskChol 240 mg/dl and greater high riskCholesterol in LDL Calc [Mass/Vol]Ordered By: Medhat Baltazar on 06-29-5067Feyerrtdmbx in LDL [Mass/Vol]42 mg/dL0-100Uk HealthcareComment on above:LDL ATP III CLASSIFICATION LDL less than 100 mg/dL Optimal LDL 100-129 mg/dL Near or above optimal LDL 130-159 mg/dL Borderline high LDL 160-189 mg/dL High LDL greater than 189 mg/dL Very highLDL ATP III CLASSIFICATIONLDL less than 100 mg/dL OptimalLDL 100-129 mg/dL Near or above jofbjjzPUJ472-423 mg/dL Borderline highLDL 160-189 mg/dL HighLDL greater than 189 mg/dL Very highCholesterol in VLDL Calc [Mass/Vol]Ordered By: Medhat Baltazar on 09-52-9624Smrlsyojtod in VLDL [Mass/Vol]48 mg/dLUk HealthcareComplete Blood Count Auto Diffon 04-65-8222Jdozaanyx (Bld) [#/Vol]0.0 10*3/uLNormal0.0-0.2FAkron Children's HospitalComment on above:Result Comment: PERFORMED BY: [place] [address] PATHOLOGIST BUSINESS BANKER MARCO ANTONIO FINLEY M.D.Performed By: #### LIPID, TSH3 wRFLX, CBC, [id number], T4F, CMP, [id number], LDLD, A1C WTH eA #### [facility] [address] [place] [address] USABasophils/100 WBC (Bld)0.6 %Normal.Uk HealthcareComment on above:Performed By: #### LIPID, TSH3 wRFLX, CBC, [id number], T4F, CMP, KVDH30EEV, LDLD, A1C WTH eA #### [facility] [address] [place] [address] USAEosinophils (Bld) [#/Vol]0.0 10*3/uLNormal0.0-0.45 Uk HealthcareComment on above:Performed By: #### LIPID, TSH3 wRFLX, CBC, [id number], T4F, CMP, [id number], LDLD, A1C WTH eA #### [facility] [address] [place], [place] [id number] USAEosinophils/100 WBC (Bld)0.4 %Normal.Uk HealthcareComment on above:Performed By: #### LIPID, TSH3 wRFLX, CBC, [id number], T4F, CMP, [id number], LDLD, A1C WTH eA #### [place] [address] USAErythrocyte distribution width (RBC) [Ratio]13.7 %Normal 12.0-14.8Uk HealthcareComment on above:Performed By: #### LIPID, TSH3 wRFLX, CBC, [id number], T4F, CMP, [id number], LDLD, A1C WTH eA #### [place] [address] USAHematocrit (Bld) [Volume fraction]43.7 %Xjmaaj93.8-50.0 Uk HealthcareComment on above:Performed By: #### LIPID, TSH3 wRFLX, CBC, [id number], T4F, CMP, [id number], LDLD, A1C WTH eA #### [place] [address] USAHemoglobin (Bld) [Mass/Vol]14.8 g/kSIgeful88.0-17.0 Uk HealthcareComment on above:Performed By: #### LIPID, TSH3 wRFLX, CBC, [id number], T4F, CMP, [id number], LDLD, A1C WTH eA #### [address] [id number] USALymphocytes (Bld) [#/Vol]1.6 10*3/uLNormal1.00-4.8 Uk HealthcareComment on above:Performed By: #### LIPID, TSH3 wRFLX, CBC, [id number], T4F, CMP, [id number], LDLD, A1C WTH eA #### [place] [address] USALymphocytes/100 WBC (Bld)29.2 %Normal.Uk HealthcareComment on above:Performed By: #### LIPID, TSH3 wRFLX, CBC, [id number], T4F, CMP, [id number], LDLD, A1C WTH eA #### [facility] [address] [id number] [facility] (RBC) [Entitic mass]34.1 wsPrpbkd34.5-35.2FAkron Children's HospitalComment on above:Performed By: #### LIPID, TSH3 wRFLX, CBC, [id number], T4F, CMP, GJGF14QZU, LDLD, A1C WTH eA #### [facility] [address] [id number] [facility] (RBC) [Entitic vol]101.1 qLFxut53.5-101Uk HealthcareComment on above:Performed By: #### LIPID, TSH3 wRFLX, CBC, [id number], T4F, CMP, PMQF84ZVB, LDLD, A1C WTH eA #### [place] [address] USAMean Corpuscular HGB Conc33.8 g/lXKutupn36.5-35.6FAkron Children's HospitalComment on above:Performed By: #### LIPID, TSH3 wRFLX, CBC, NPHC45KA, T4F, CMP, [id number], LDLD, A1C WTH eA #### [facility] [address] [place] [address] USAMonocytes (Bld) [#/Vol]0.4 10*3/uLNormal0.0-0.8Uk HealthcareComment on above:Performed By: #### LIPID, TSH3 wRFLX, CBC, [id number], T4F, CMP, [id number], LDLD, A1C WTH eA #### [facility] [address] [id number] USAMonocytes/100 WBC (Bld)7.0 %Normal.Uk HealthcareComment on above:Performed By: #### LIPID, TSH3 wRFLX, CBC, [id number], T4F, CMP, RURV91GQL, LDLD, A1C WTH eA #### [facility] [address] [place] [address] USANeutrophils (Bld) [#/Vol]3.3 10*3/uLNormal1.8-7.7FAkron Children's HospitalComment on above:Performed By: #### LIPID, TSH3 wRFLX, CBC, [id number], T4F, CMP, [id number], LDLD, A1C WTH eA #### [facility] [address] [place] [address] USANeutrophils/100 WBC (Bld)62.8 %Normal.Uk HealthcareComment on above:Performed By: #### LIPID, TSH3 wRFLX, CBC, [id number], T4F, CMP, [id number], LDLD, A1C WTH eA #### [place] [address] USANucleated RBC/100 WBC (Bld) [Ratio]0.1 %Normal0-0.5 Uk HealthcareComment on above:Performed By: #### LIPID, TSH3 wRFLX, CBC, [id number], T4F, CMP, [id number], LDLD, A1C WTH eA #### [facility] [address] [place] [address] USAPlatelet mean volume (Bld) [Entitic vol]8.7 fLNormal 6.6-10.1FAkron Children's HospitalComment on above:Performed By: #### LIPID, TSH3 wRFLX, CBC, [id number], T4F, CMP, [id number], LDLD, A1C WTH eA #### [facility] [address] [id number] USAPlatelets (Bld) [#/Vol]218 10*3/nEBdfitx233-914AigclxwhkUk HealthcareComment on above:Performed By: #### LIPID, TSH3 wRFLX, CBC, [id number], T4F, CMP, [id number], LDLD, A1C WTH eA #### [facility] [address] [place] [address] USARBC (Bld) [#/Vol]4.33 10*6/uLNormal3.90-5.60Uk HealthcareComment on above:Performed By: #### LIPID, TSH3 wRFLX, CBC, [id number], T4F, CMP, [id number], LDLD, A1C WTH eA #### [facility] [address] [place] [address] USAWBC (Bld) [#/Vol]5.3 10*3/uLNormal4.5-11.0Uk HealthcareComment on above:Performed By: #### LIPID, TSH3 wRFLX, CBC, [id number], T4F, CMP, [id number], LDLD, A1C WTH eA #### [facility] [address] [place] [address] USAComprehensive Metabolic Panelon 96-76-6467Mpkfhfp [Mass/Vol]3.7 g/dLNormal3.2-5.5FAkron Children's HospitalComment on above:Performed By: #### LIPID, TSH3 wRFLX, CBC, [id number], T4F, CMP, LTBO72CWA, LDLD, A1C WTH eA #### [facility] [address] [place] [address] USAAlbumin/Globulin [Mass ratio]1.3 {ratio}NormalUk HealthcareComment on above:Performed By: #### LIPID, TSH3 wRFLX, CBC, [id number], T4F, CMP, DZVS70QZR, LDLD, A1C WTH eA #### [facility] [address] [place] [address] USAALP [Catalytic activity/Vol]87 U/VDpmkoe76-61NvlgftrzuUk HealthcareComment on above:Performed By: #### LIPID, TSH3 wRFLX, CBC, [id number], T4F, CMP, [id number], LDLD, A1C WTH eA #### [facility] [address] [place] [address] USAALT [Catalytic activity/Vol]39 U/OTwjrcq89-53UppyzownjUk HealthcareComment on above:Performed By: #### LIPID, TSH3 wRFLX, CBC, [id number], T4F, CMP, [id number], LDLD, A1C WTH eA #### [facility] [address] [place] [address] USAAST [Catalytic activity/Vol]23 U/PXrtnku46-05DxkbuyfccUk HealthcareComment on above:Performed By: #### LIPID, TSH3 wRFLX, CBC, [id number], T4F, CMP, [id number], LDLD, A1C WTH eA #### [facility] [address] [place] [id number] USABilirubin [Mass/Vol]1.5 mg/dLHigh0.3-1.2FAkron Children's HospitalComment on above:Result Comment: Samples from patients who have taken Naproxen have shown spurious elevation in Total Bilirubin levels. A metabolite of Naproxen, O-desmethylnaproxen, has been shown to interfere with the Christiana-Pb method for measuring Total Bilirubin.Performed By: #### LIPID, TSH3 wRFLX, CBC, [id number], T4F, CMP, [id number], LDLD, A1C WTH eA #### [place] [id number] USACalcium [Mass/Vol]9.1 mg/dLNormal8.2-10.2FAkron Children's HospitalComment on above:Performed By: #### LIPID, TSH3 wRFLX, CBC, [id number], T4F, CMP, [id number], LDLD, A1C WTH eA #### [facility] [address] [place] [id number] USAChloride [Moles/Vol]104 mmol/XEubwba08-986LlzprhnmaUk HealthcareComment on above:Performed By: #### LIPID, TSH3 wRFLX, CBC, [id number], T4F, CMP, [id number], LDLD, A1C WTH eA #### [facility] [address] [place] [id number] USACO2 [Moles/Vol]20.0 mmol/LLow22.0-30.0Uk HealthcareComment on above:Performed By: #### LIPID, TSH3 wRFLX, CBC, [id number], T4F, CMP, [id number], LDLD, A1C WTH eA #### [place] [id number] USACreatinine [Mass/Vol]0.73 mg/dLNormal0.64-1.27Uk HealthcareComment on above:Performed By: #### LIPID, TSH3 wRFLX, CBC, [id number], T4F, CMP, [id number], LDLD, A1C WTH eA #### [place] [address] USAEstimated GFR ( Marisol> 60NoProtestant Deaconess HospitalComment on above:Result Comment: GFR estimated reference range: According to KDOQI guidelines, <60 ml/min/1.73m2 is sufficient to diagnose a patient with chronic kidney disease.Performed By: #### LIPID, TSH3 wRFLX, CBC, [id number], T4F, CMP, [id number], LDLD, A1C WTH eA #### [address] [address] USAEstimated GFR (Non- Am> 60NoProtestant Deaconess HospitalComment on above:Performed By: #### LIPID, TSH3 wRFLX, CBC, [id number], T4F, CMP, [id number], LDLD, A1C WTH eA #### [address] [address] USAGlobulin (S) [Mass/Vol]2.9 g/dLNoProtestant Deaconess HospitalComment on above:Performed By: #### LIPID, TSH3 wRFLX, CBC, [id number], T4F, CMP, [id number], LDLD, A1C WTH eA #### [place] [id number] USAGlucose [Mass/Vol]86 mg/yUVeixpq30-886CkeabufdmUk HealthcareComment on above:Result Comment: Random Glucose Reference Range is dependent on time and content of last meal. Glucose of more than 200 mg/dL in a nonstressed, ambulatory subject supports the diagnosis of Diabetes Mellitus. ADA recommended reference rangePerformed By: #### LIPID, TSH3 wRFLX, CBC, [id number], T4F, CMP, [id number], LDLD, A1C WTH eA #### [facility] [address] [place] [address] USAPotassium [Moles/Vol]4.1 mmol/LNormal3.5-5.1FAkron Children's HospitalComment on above:Performed By: #### LIPID, TSH3 wRFLX, CBC, [id number], T4F, CMP, [id number], LDLD, A1C WTH eA #### [place] [address] USAProtein [Mass/Vol]6.6 g/dLNormal6.1-7.9Uk HealthcareComment on above:Performed By: #### LIPID, TSH3 wRFLX, CBC, [id number], T4F, CMP, [id number], LDLD, A1C WTH eA #### [facility] [address] [place] [address] USASodium [Moles/Vol]133 mmol/PVqj394-115GjwctobglUk HealthcareComment on above:Performed By: #### LIPID, TSH3 wRFLX, CBC, [id number], T4F, CMP, [id number], LDLD, A1C WTH eA #### [place] [phone] USAUrea nitrogen [Mass/Vol]6 mg/dLLow9-23Uk HealthcareComment on above:Performed By: #### LIPID, TSH3 wRFLX, CBC, [id number], T4F, CMP, [id number], LDLD, A1C WTH eA #### [place] [address] USACreatinine and Glomerular filtration rate.predicted panel (S/P/Bld)Ordered By: Medhat Baltazar on 42-06-4853Xmppzwyfjq [Mass/Vol]0.73 mg/dL0.64-1.27Uk HealthcareEosinophils Auto (Bld) [#/Vol] Ordered By: Medhat Baltazar on 77-24-8701Jzdoqxmdosr (Bld) [#/Vol]0.0 10*3/uL 0.0-0.45Uk HealthcareEosinophils/100 WBC Auto (Bld)Ordered By: Medhat Baltazar on 48-49-2571Ozrkvadmknv/100 WBC (Bld)0.4 %.Uk HealthcareErythrocyte distribution width Auto (RBC) [Ratio]Ordered By: Medhat Baltazar on 10-74-1092Xeeqyxpxtjv distribution width (RBC) [Ratio] 13.7 %12.0-14.8Uk HealthcareEstimated glomerular filtration rate (GFR) non- AmericanOrdered By: Medhat Baltazar on 03-12-2022 GFR/1.73 sq M.predicted among non-blacks MDRD (S/P/Bld) [Vol rate/Area]> 60 mL/MinUk HealthcareFolate [Mass/volume] in Serum or Plasma Ordered By: Medhat Baltazar on 29-05-3474Wzscfy [Mass/Vol]7.2 ng/mL>5.9 Uk HealthcareComment on above:Folate reference range: >5.9 ng/ml The WHO technical consultation on folate and vitamin b12 deficiencies has determined that folate concentrations less than 4 ng/ml are considered deficient.Folate reference range: >5.9 ng/mlThe WHO technical consultation on folate and vitamin h93sdfboltqmgnj has determined that folate concentrations lessthan 4 ng/ml are considered deficient.Free T4 (Free Thyroxine)on 35-21-6002Grsx T4 [Mass/Vol]0.41 ng/dLLow0.61-1.12Uk HealthcareComment on above:Performed By: #### LIPID, TSH3 wRFLX, CBC, [id number], T4F, CMP, [id number], LDLD, A1C WTH eA #### [facility] [address] [place] [address] USAGlobulin Calc (S) [Mass/Vol]Ordered By: Medhat Baltazar on 49-92-1279Zruyfyvg (S) [Mass/Vol]2.9 g/dLUk Healthcare Glucose mean value [Mass/volume] in Blood Estimated from glycated hemoglobin Ordered By: Medhat Baltazar on 14-00-0850Qxgykei glucose Estimated from glycated hemoglobin (Bld) [Mass/Vol]111 mg/dLUk Healthcare Hematocrit Auto (Bld) [Volume fraction]Ordered By: Medhat Baltazar on 11-47-8915Wtlpfmciby (Bld) [Volume fraction]43.7 %38.8-50.0Uk HealthcareHemoglobin A1c percentageOrdered By: Medhat Baltazar on 34-04-2829ToY5t (Bld) [Mass fraction]5.5 %4.3-5.6FAkron Children's HospitalComment on above:Increased risk for diabetes: 5.7 - 6.4 diabetes: >6.4 glycemic control for adults with diabetes: <7.0Increased risk for diabetes: 5.7 - 6.4diabetes: >6.4glycemic control for adults with diabetes: <7.0LDL Cholesterol Measuredon 04-88-4646CJI Cholesterol Hcvrqypp33 mg/dLNormal0-100 Uk HealthcareComment on above:Result Comment: LDL ATP III CLASSIFICATION LDL less than 100 mg/dL Optimal LDL 100-129 mg/dL Near or above optimal LDL 130-159 mg/dL Borderline high LDL 160-189 mg/dL High LDL greater than 189 mg/dL Very highPerformed By: #### LIPID, TSH3 wRFLX, CBC, [id number], T4F, CMP, [id number], LDLD, A1C WT eA #### [facility] [address] [place] [address] USALaboratory - Chemistry and Chemistry - challengeOrdered By: Medhat Baltazar on 80-15-3452Aqwsxsrby (Vitamin B12) [Mass/Vol]376 pg/mL 180-914Uk HealthcareLaboratory - Hematology and Cell counts Ordered By: Medhat Baltazar on 11-36-3233Mjvegbndw RBC/100 WBC (Bld) [Ratio]0.1 %0-0.5FAkron Children's HospitalLipid Panelon 77-67-8389Yvbkvcyougf [Mass/Vol]157 mg/sLYnendp470-209FkuwgdhpeUk HealthcareComment on above:Result Comment: Chol less than 200 mg/dl low risk Chol 201-239 mg/dl borderline risk Chol 240 mg/dl and greater high riskPerformed By: #### LIPID, TSH3 wRFLX, CBC, [id number], T4F, CMP, [id number], LDLD, A1C WTH eA #### [facility] [address] [place] [address] USACholesterol in HDL [Mass/Vol]66 mg/eOJmwysx53-31ToqfqqjufUk HealthcareComment on above:Result Comment: HDL CHOL ATP-III CLASSIFICATION Cardiovascular Risk HDL > or equal to 60 mg/dL LOW HDL < 40 mg/dL HIGHPerformed By: #### LIPID, TSH3 wRFLX, CBC, [id number], T4F, CMP, [id number], LDLD, A1C WTH eA #### [facility] [address] [place] [address] USACholesterol.total/Cholesterol in HDL [Mass ratio]2.4 {ratio}Normal<5.0Uk HealthcareComment on above:Performed By: #### LIPID, TSH3 wRFLX, CBC, [id number], T4F, CMP, [id number], LDLD, A1C WTH eA #### [facility] [address] [place] [address] USALDL Cholesterol,Bwjqytpxbi50 mg/dLNormal0-100Uk HealthcareComment on above:Result Comment: LDL ATP III CLASSIFICATION LDL less than 100 mg/dL Optimal LDL 100-129 mg/dL Near or above optimal LDL 130-159 mg/dL Borderline high LDL 160-189 mg/dL High LDL greater than 189 mg/dL Very highPerformed By: #### LIPID, TSH3 wRFLX, CBC, [id number], T4F, CMP, [id number], LDLD, A1C WTH eA #### [facility] [address] [place] [address] USATriglyceride w/Cvcdiq266 mg/uLTxyg63-595YjxwzpmcsUk HealthcareComment on above:Result Comment: TRIG ATP III CLASSIFICATION TRIG less than 150 mg/dL Normal TRIG 150-199 mg/dL Borderline high TRIG 200-500 mg/dL High TRIG greater than 500 mg/dL Very high Standard traceable to the Center for Disease Conrtrol and Prevention (CDC) test method.Performed By: #### LIPID, TSH3 wRFLX, CBC, [id number], T4F, CMP, XLPQ10BDP, LDLD, A1C [facility] eA #### [facility] [address] [place] [id number] USAVLDL SLMTVBCLHZS14 mg/dLNormalUk HealthcareComment on above:Performed By: #### LIPID, TSH3 wRFLX, CBC, [id number], T4F, CMP, SRNL84WUX, LDLD, A1C [facility] eA #### [facility] [address] [place] [id number] USALymphocytes Auto (Bld) [#/Vol]Ordered By: Medhat Baltazar on 07-60-4236Kxdtdfsdtsd (Bld) [#/Vol]1.6 10*3/uL1.00-4.8Uk HealthcareLymphocytes/100 WBC Auto (Bld)Ordered By: Medhat Baltazar on 33-68-9484Kfouovjujzk/100 WBC (Bld)29.2 %.[facility] Auto (RBC) [Entitic mass]Ordered By: Medhat Baltazar on 92-21-5113DBX (RBC) [Entitic mass]34.1 pg27.5-35.2FTriHealth McCullough-Hyde Memorial HospitalHC Auto (RBC) [Mass/Vol]Ordered By: Medhat Baltazar on 08-63-9666VBTG (RBC) [Mass/Vol]33.8 g/dL32.5-35.6FTriHealth McCullough-Hyde Memorial HospitalV Auto (RBC) [Entitic vol] Ordered By: Medhat Baltazar on 30-99-7463UXM (RBC) [Entitic vol]101.1 fL 83.5-101Uk HealthcareMonocytes Auto (Bld) [#/Vol]Ordered By: Medhat Baltazar on 56-68-9767Qbucqivuz (Bld) [#/Vol]0.4 10*3/uL0.0-0.8 Uk HealthcareMonocytes/100 WBC Auto (Bld)Ordered By: Medhat Baltazar on 65-27-7897Popegtvsm/100 WBC (Bld)7.0 %.Uk HealthcareNeutrophils Auto (Bld) [#/Vol]Ordered By: Medhat Baltazar on 01-08-9933Uadlhluohjq (Bld) [#/Vol]3.3 10*3/uL1.8-7.7FAkron Children's HospitalNeutrophils/100 WBC Auto (Bld)Ordered By: Medhat Baltazar on 03-12-2022 Neutrophils/100 WBC (Bld)62.8 %.Uk HealthcareNo Panel InformationOrdered By: Medhat Baltazar on 27-54-924997200576-Vqeaexx Vitamin D Total 7.9 ng/dX37-545EdxaqqrkkUk HealthcareComment on above:VITAMIN D STATUS 25(OH)VITAMIN D RANGE (ng/mL) Deficient <20 Insufficient 20 to <30 Sufficient 30 to 100 Reference: Franklyn Joseph, Isaac FRANCES, et al. Evaluation,treatment, and prevention of vitamin D deficiency; an Endocrine Society clinical practice guideline. JCEM. 2010; 96(7):1911-30.VITAMIN D STATUS 25(OH)VITAMIN D RANGE (ng/mL) Deficient <20 Insufficient 20 to <10Vbzzsjcyyw05 to 100Reference: Franklyn Joseph, Isaac FRANCES, et al. Evaluation,treatment, and prevention of vitamin D deficiency; an Endocrine Society clinical practice guideline. JCEM. 2010; 96(7):1911-30.Estimated GFR ()> 60 mL/MinUk HealthcareComment on above: GFR estimated reference range: According to KDOQI guidelines, <60 ml/min/1.73m2 is sufficient todiagnose a patient with chronic kidney disease.Pharmacy Creatinine Clearance (ChemN/AFAkron Children's HospitalPlatelet mean volume Auto (Bld) [Entitic vol]Ordered By: Medhat Baltazar on 03-12-2022 Platelet mean volume (Bld) [Entitic vol]8.7 fL6.6-10.1FAkron Children's HospitalPlatelets Auto (Bld) [#/Vol]Ordered By: Medhat Baltazar on 03-12-2022 Platelets (Bld) [#/Vol]218 10*3/cY589-030WbtlitdzrUk Healthcare Protein [Mass/volume] in Serum or PlasmaOrdered By: Medhat Baltazar on 74-23-0001Khbrxkl [Mass/Vol]6.6 g/dL6.1-7.9Uk HealthcareRBC Auto (Bld) [#/Vol]Ordered By: Medhat Baltazar on 29-35-2729XTT (Bld) [#/Vol] 4.33 10*6/uL3.90-5.60ProMedica Bay Park Hospitalerum or plasma alanine aminotransferase measurement without P-5'-P (enzymatic activiOrdered By: Medhat Baltazar on 45-18-7803UXR No additional P-5'-P [Catalytic activity/Vol] 39 U/K67-89GccnurrycProMedica Bay Park Hospitalerum or plasma albumin/globulin mass ratioOrdered By: Medhat Baltazar on 31-37-9133Dipqmwf/Globulin [Mass ratio]1.3 {ratio}ProMedica Bay Park Hospitalerum or plasma alkaline phosphatase measurement (enzymatic activity/volume)Ordered By: Medhat Baltazar on 28-01-6100EZD [Catalytic activity/Vol]87 U/V25-06PsgktpxnfProMedica Bay Park Hospitalerum or plasma aspartate aminotransferase measurement (enzymatic activity/volume)Ordered By: Medhat Baltazar on 81-98-1651BBM [Catalytic activity/Vol]23 U/U55-45DtdxujosgProMedica Bay Park Hospitalerum or plasma calcium measurement (mass/volume)Ordered By: Medhat Baltazar on 38-12-7543Povcmva [Mass/Vol]9.1 mg/dL8.2-10.2FPeoples Hospitalerum or plasma chloride measurement (moles/volume)Ordered By: Medhat Baltazar on 03-12-2022 Chloride [Moles/Vol]104 mmol/E31-939HldmnjvoaProMedica Bay Park Hospitalerum or plasma cholesterol in LDL measurement (mass/volume)Ordered By: Medhat Baltazar on 73-46-2002Bantvfhpsut in LDL [Mass/Vol]64 mg/dL0-100Uk HealthcareComment on above:LDL ATP III CLASSIFICATION LDL less than 100 mg/dL Optimal LDL 100-129 mg/dL Near or above optimal LDL 130-159 mg/dL Borderline high LDL 160-189 mg/dL High LDL greater than 189 mg/dL Very highLDL ATP III CLASSIFICATIONLDL less than 100 mg/dL OptimalLDL 100-129 mg/dL Near or above ulegwcgRKZ356-158 mg/dL Borderline highLDL 160-189 mg/dL HighLDL greater than 189 mg/dL Very highSerum or plasma glucose measurement (mass/volume)Ordered By: Medhat Baltazar on 03-12-2022 Glucose [Mass/Vol]86 mg/bR96-124PraeglnoaUk HealthcareComment on above:ADA recommended reference range Random Glucose Reference Range is dependent on time and content of last meal. Glucose of more than 200 mg/dL in a nonstressed, ambulatory subject supports the diagnosis of Diabetes Mellitus.ADA recommended reference rangeRandom Glucose Reference Range is dependent on time and content of last meal. Glucose of more than 200 mg/dL in a nonstressed, ambulatory subject supports the diagnosisof Diabetes Mellitus.Serum or plasma high density lipoprotein (HDL) cholesterol measurementOrdered By: Medhat Baltazar on 82-77-5684Fpmgxmhayrx in HDL [Mass/Vol]66 mg/vK86-27VjtgcdecrUk HealthcareComment on above:HDL CHOL ATP-III CLASSIFICATION Cardiovascular Risk HDL > or equal to 60 mg/dL LOW HDL < 40 mg/dL HIGHHDL CHOL ATP-III CLASSIFICATION Cardiovascular RiskHDL > or equal to 60 mg/dL LOWHDL < 40 mg/dL HIGHSerum or plasma potassium measurement (moles/volume)Ordered By: Medhat Baltazar on 14-31-8787Jisexealj [Moles/Vol]4.1 mmol/L3.5-5.1FPeoples Hospitalerum or plasma sodium measurement (moles/volume)Ordered By: Medhat Baltazar on 31-87-7318Frqweh [Moles/Vol]133 mmol/J188-578NsgfutnibProMedica Bay Park Hospitalerum or plasma total bilirubin measurement (mass/volume)Ordered By: Medhat Baltazar on 06-06-7356Erwkmromk [Mass/Vol]1.5 mg/dL0.3-1.2FAkron Children's Hospital Comment on above:Samples from patients who have taken Naproxen have shown spurious elevation in Total Bilirubin levels. A metabolite of Naproxen, O- desmethylnaproxen, has been shown to interfere with the [place]-Pb method for measuring Total Bilirubin.Serum or plasma total carbon dioxide measurement (moles/volume)Ordered By: Medhat Baltazar on 89-57-3796WE4 [Moles/Vol]20.0 mmol/L22.0-30.0ProMedica Bay Park Hospitalerum or plasma total cholesterol/high density lipoprotein (HDL) cholesterol mass ratOrdered By: Medhat Baltazar on 45-13-8152Ravbxqdczck.total/Cholesterol in HDL [Mass ratio] 2.4 {ratio}<5.0ProMedica Bay Park Hospitalerum or plasma urea nitrogen measurement (mass/volume)Ordered By: Medhat Baltazar on 75-30-8367Fqgo nitrogen [Mass/Vol]6 mg/dL9-23Uk HealthcareTS DL <= 0.005 mIU/L Qn Ordered By: Medhat Baltazar on 24-48-7465YFG Qn44.00 m[IU]/L0.45-5.33Uk HealthcareThyroid Stim Hormone w/Rflxon 39-00-9194Dzokgcf Stim Hormone w/Rflx44.00 u[iU]/mLHigh0.45-5.33Uk Healthcare Comment on above:Performed By: #### LIPID, TSH3 wRFLX, CBC, AGGX25IA, T4F, CMP, XBJK84GDE, LDLD, A1C WTH eA #### [facility] [address] [place] [address] USAThyroxine (T4) free [Mass/volume] in Serum or Plasma Ordered By: Medhat Baltazar on 00-84-8182Gmde T4 [Mass/Vol]0.41 ng/dL0.61-1.12 Uk HealthcareTriglyceride [Mass/volume] in Serum or Plasma Ordered By: Medhat Baltazar on 00-61-0503Cbwjjadxddhi [Mass/Vol]243 mg/cW11-952 Uk HealthcareComment on above:TRIG ATP III CLASSIFICATION TRIG less than 150 mg/dL Normal TRIG 150-199 mg/dL Borderline high TRIG 200-500 mg/dL High TRIG greater than 500 mg/dL Very high Standard traceable to the Center for Disease Conrtrol and Prevention (CDC) test method.TRIG ATP III CLASSIFICATIONTRIG less than 150 mg/dL NormalTRIG 150-199 mg/dL Borderline highTRIG 200-500 mg/dL High TRIG greater than 500 mg/dL Very highStandard traceable to the Center for Disease Conrtrol and Prevention (CDC) test method.Vit. B12/Folate Profileon 11-83-4091Gpmgmgydo (Vitamin B12) [Mass/Vol]376 pg/lNHizmnm377-356SrirhbnaiUk HealthcareComment on above:Performed By: #### LIPID, TSH3 wRFLX, CBC, XXQD57VR, T4F, CMP, RDFZ35SQJ, LDLD, A1C WTH eA #### [facility] [address] [place] [address] USAFolate7.2 ng/mLNormal>5.9Uk Healthcare Comment on above:Result Comment: Folate reference range: >5.9 ng/ml The WHO technical consultation on folate and vitamin b12 deficiencies has determined that folate concentrations less than 4 ng/ml are considered deficient.Performed By: #### LIPID, TSH3 wRFLX, CBC, VQLM06JD, T4F, CMP, IIVT56HXT, LDLD, A1C WTH eA #### [facility] [address] [place] [address] USAVitamin D 25 Hydroxy Totalon 57-07-3152Elkxbfs D 25 Hydroxy Total7.9 ng/zAJjo85-343CnqpugeiuUk HealthcareComment on above:Result Comment: VITAMIN D STATUS 25(OH)VITAMIN D RANGE (ng/mL) Deficient <20 Insufficient 20 to <30 Sufficient 30 to 100 Reference: Jay MF,Franklyn NC, Isaac FRANCES, et al. Evaluation,treatment, and prevention of vitamin D deficiency; an Endocrine Society clinical practice guideline. JCEM. 2010; 96(7):1911-30. PERFORMED BY: [facility] [address] [place] [address] PATHOLOGIST BUSINESS BANKER MARCO ANTONIO FINLEY M.D.Performed By: #### LIPID, TSH3 wRFLX, CBC, EKPO46HS, T4F, CMP, PFAQ78PUH, LDLD, A1C WTH eA #### [facility] [address] [place] [address] USAOffice Visit (Cardiology)on 52-71-8327Zzztro-up visit Diagnoses/Problems Assessed Atherosclerosis of coronary artery of jena heart without angina pectoris (414.01) (I25.10) Essential hypertension, benign (401.1) (I10) Ischemic cardiomyopathy (414.8) (I25.5) History of Encounter for assessment of automatic implantable cardioverter-defibrillator (AICD) (V53.32) (Z45.02) Class 2 obesity with body mass index (BMI) of 35.0 to 35.9 in adult (278.00,V85.35) (E66.9,Z68.35) Encounter for assessment of implantable cardioverter-defibrillator (ICD) (V53.32) (Z45.02) Nicotine-filled electronic cigarette user (305.1) (Z72.0) one electronic device a week Orders Atherosclerosis of coronary artery of jena heart without angina pectoris Renew: Aspirin Low [...] Done: 07Jan2022 Encounter for assessment of implantable cardioverter-defibrillator (ICD) Isotope Perfusion Mult Studies Planar W/ Ejection Fraction; Status:Active - Retrospective Authorization; Requested for:07Jan2022; SocHx: Nicotine-filled electronic cigarette user You need to stop smoking. Though it is not easy, more than half of all adult smokers have quit. We encourage you to write down all the reasons you should quit smoking and set a quit date for yourself. Ask us how we can help. You may also call 5-055-BSJQ-NOW for free resources and assistance.; Status:Complete - [...] of Encounter for assessment of automatic implantable cardioverter-defibrillator (AICD) (V53.32) (Z45.02) Resolved Date: 07 Jan [...] Oral CapsuleTAKE 1 CAPSULE 3 TIMES DAILY. HYDROcodone-Acetaminophen 5-325 MG Oral TabletTAKE 1 TABLET EVERY [...] TABLET Daily prn Ondansetro (more content not included)...NormalUH TouchworksTobacco Screening.on 52-64-5424Expnm depression screening assessmentNo-[facility] [employer] [address] DO Work Phone: Tobacco use status CPHSb) NoM-[facility] 250 DO Work Phone: CB AUTO DIFFon 36-41-7630BMLK #0.0 103/ulNormal 0.0-0.1The [facility]ja Medical CenterComment on above:Performed By: #### LACT #### [facility] [address] [place] [address] Dr. Wilda Yousifphils/100 WBC (Bld)0.3 %Normal0.2-2.0The [facility] Comment on above:Performed By: #### LACT #### [facility] [address] [place] [address] Dr. Wilda Carr #0.0 103/ulNormal0.0-0.7The [facility] Medical CenterComment on above: Performed By: #### LACT #### [facility] [address] [address] [address] Wilda Cantuosinophils/100 WBC (Bld)0.3 %Critically low0.9-7.0The [facility] Gal[facility] Hospitalment on above:Performed By: #### LACT #### [facility] [address] [place] [address] Dr. Wilda Canturythrocyte distribution width (RBC) [Ratio]13.5 %Tlvlqb05.0-15.0 The [facility] Medical CenterComment on above:Performed By: #### LACT #### [facility] [address] [place] [address] Dr. Wilda PatelHematocrit (Bld) [Volume fraction]42.5 %Usiluz43.0-54.0The [facility] Medical CenterComment on above:Performed By: #### LACT #### [facility] [address] [place] [address] Dr. Wilda PatelHemoglobin (Bld) [Mass/Vol]14.5 g/bUEoyfzw85.0-18.0The [facility] Hospitalment on above:Performed By: #### LACT #### [facility] [address] [place] [address] Dr. Wilda Candelario #0.05 10e3/ulCritically high0.00-0.03The [facility] Comment on above:Performed By: #### LACT #### [facility] [address] [place] [address] Dr. Wilda Candelario %0.5 %Normal0.0-0.5The [facility] Hospitalment on above: Performed By: #### LACT #### [facility] [address] [place] [address] Dr. Wilda BarrettMPH #1.9 103/ulNormal1.2-3.8The [facility] Medical CenterComment on above:Performed By: #### LACT #### [facility] [address] [place] [address] Dr. Wilda Barrettmphocytes/100 WBC (Bld)17.6 %Critically low20.5-60.0The [facility] Medical CenterComment on above:Performed By: #### LACT #### [facility] [address] [place] [address] Dr. Wilda Moore DIFF REQNONormalThe [facility] Ahuja Medical CenterComment on above: Performed By: #### LACT #### [facility] [address] [place] [address] Dr. Wilda Whitaker (RBC) [Entitic mass]33.1 rjHtrnzo79.9-34.0The [facility] Medical CenterComment on above:Performed By: #### LACT #### [facility] [address] [place] [address] Dr. Wilda Whitaker (RBC) [Mass/Vol]34.1 g/qYNsuitq87.9-35.2The [facility] Medical CenterComment on above:Performed By: #### LACT #### [facility] [address] [place] [address] Dr. Wilda Whitaker (RBC) [Entitic vol]97.0 fLCritically high80.0-94.0[facility]rium Medical CenterComment on above:Performed By: #### LACT #### [facility] [address] [place] [address] Dr. Wilda Georges #0.9 103/ulCritically high0.3-0.8ThParkview Health [facility] Hospital Comment on above:Performed By: #### LACT #### [facility] [address] [place] [address] Dr. Wilda Castroocytes/100 WBC (Bld)8.0 %Normal1.7-12.0[facility] Comment on above:Performed By: #### LACT #### [facility] [address] [place] [address] Dr. Wilda Berry #7.9 103/ulCritically high1.4-6.5ThPark[facility] Health [facility] Comment on above:Performed By: #### LACT #### [facility] [address] [place] [address] Dr. Wilda Coronadoutrophils/100 WBC (Bld)73.3 %Qubosf45.0-75.0[facility] CenterComment on above:Performed By: #### LACT #### [facility] [address] [address] [address] Wilda Acostalet mean volume (Bld) [Entitic vol]9.3 fLCritically low 9.5-13.5The [facility] CenterComment on above:Performed By: #### LACT #### [facility] [address] [place] [address] Dr. Wilda PatelPLT261 103/inRlihww352-155Tvi [facility] CenterComment on above: Performed By: #### LACT #### [facility] [address] [place] [address] Dr. Wilda PatelRBC4.38 106/ulCritically low4.70-6.10The [facility] CenterComment on above:Performed By: #### LACT #### [facility] [address] [place] [address] Dr. Wilda PatelWBC10.8 103/ulNormal4.0-11.0The [facility] CenterComment on above:Performed By: #### LACT #### [facility] [address] [place] [address] Dr. Wilda PatelCT ABD/PELV W CONon [id number] ABD/PELV W CONCT ABDOMEN AND PELVIS WITH CONTRAST: INDICATION: Abscess of abdominal wall. [...] Electronically authenticated by: CLAIR RAMIREZ Date: 2021-07-29 19:33[facility] CenterCULTURE BLOODon [id number] examination of blood, cultureCulture Observations: NO GROWTH AT 5 DAYS.NormalPremier Health Atrium Medical CenterComment on above:Performed By: #### CMREP #### [facility] [address] [place] [address] Dr. Wilda PatelMicroscopic examination of blood, cultureCulture Observations: NO GROWTH AT 5 DAYS.NormalThe [facility] CenterComment on above:Performed By: #### CMREP #### [facility] [address] [place] [address] Dr. Wilda PatelCovid-19 PCR ([facility]VDM[facility])on 51-27-2017CRNJ-CoV-2 (COVID-19) RNA SHREYA+probe Ql (Unsp spec)Not detectedNormalNOT DETECTEDPrem[facility] Health [facility] Comment on above:Result Comment: This test is not yet approved or cleared by the [place] FDA. When there are no FDA-approved or cleared tests available, and other criteria are met, FDA can make tests available under an emergency access mechanism called an Emergency Use Authorization (EUA). The EUA for this test is supported by the [place] of Health and Human Service's (HHS's) declaration that circumstances exist to justify the emergency use of in vitro diagnostics for the detection and/or diagnosis of the virus that causes COVID- 19. This EUA will remain in effect (meaning [...] of clinical signs and symptoms consistent with SARS-CoV-2.Performed By: #### CVDTBH #### [facility] [address] [place] [address] Dr. Wilda Holden URINE PROFILEon 33-46-4198Rwidlvkdl Ql (U)NegativeNormal NEGATIVEPremier Health Atrium Medical CenterComment on above:Performed By: #### ERUR #### [facility] [address] [place] [address] Dr. Wilda Walton (U)CLEARNormalCLEARPremier Health Atrium Medical CenterComment on above: Performed By: #### ERUR #### [facility] [address] [place] [address] Dr. Wilda Calderon (U)YELLOWNormalYELLOWPremier Health Atrium Medical CenterComment on above: Performed By: #### ERUR #### [facility] [address] [place] [address] Dr. Wilda Klein micrscopic examination will be performed if indicated. NormalPremier Health Atrium Medical CenterComment on above:Performed By: #### ERUR #### [facility] [address] [place] [address] Dr. Wilda PatelGlucose Ql (U)NegativeNormalNEGATIVEPremier Health Atrium Medical CenterComment on above:Performed By: #### ERUR #### [facility] [address] [place] [address] Dr. Wilda PatelHemoglobin Ql (U)NegativeNormalNEGATIVETrinity Health System East Campus on above:Performed By: #### ERUR #### [facility] [address] [address] [address] Wilda Morocho Ql (U)NegativeNormalNEGATIVEPremier Health Atrium Medical CenterComment on above:Performed By: #### ERUR #### [facility] [address] [place] [address] Dr. Wilda PatelLEUKOCYTESNegativeNormalNEGATIVEPremier Health Atrium Medical CenterComment on above:Performed By: #### ERUR #### [facility] [address] [place] [address] Dr. Wilda Ortiztrite Ql (U)NegativeNormalNEGATIVEThe [facility] CenterComment on above:Performed By: #### ERUR #### [facility] [address] [place] [address] Dr. Wilda PatelpH (U)5.5 [pH]Normal5-9The [facility] CenterComment on above: Performed By: #### ERUR #### [facility] [address] [place] [address] Dr. Wilda PatelSPEC GRAVITY>=1.557Mljlzczf4.005-<=1.025The [facility] Comment on above:Performed By: #### ERUR #### [facility] [address] [place] [address] Dr. Wilda Duff PROTEINNegativeAkronNEGATIVE/ TRACEPremier Health Atrium Medical Center Comment on above:Performed By: #### ERUR #### [facility] [address] [place] [address] Dr. Wilda Hoang MICRO INDNOT INDICATEDKettering Health Behavioral Medical CenterComment on above:Performed By: #### ERUR #### [facility] [address] [place] [address] Dr. Wilda Kaurbilinogen Qn (U)0.2 {Maria Luisa'U}/dLNormal0.2 - 1.0[facility] CenterComment on above:Performed By: #### ERUR #### [facility] [address] [place] [address] Dr. Wilda TolliverCTATE/LACTIC ACIDon 60-98-5605Mssaloz [Moles/Vol]2.2 mmol/L Critically high0.7-2.0The [facility] CenterComment on above:Performed By: #### LACT #### [facility] [address] [address] [address] Wilda Álvarez 14(COMP METB)on 32-77-5921Utjohmv [Mass/Vol]2.9 g/dL Critically low3.5-5.0The [facility] CenterComment on above:Performed By: #### CMP #### [facility] [address] [address] [address] Wilda PatelAlbumin/Globulin [Mass ratio]0.7 {ratio}NormalThe [facility] CenterComment on above:Performed By: #### CMP #### [facility] [address] [place] [address] Dr. Wilda FragaP [Catalytic activity/Vol]137 U/LCritically ronr31-720Jly [facility] CenterComment on above:Performed By: #### CMP #### [facility] [address] [place] [address] Dr. Wilda FragaT [Catalytic activity/Vol]17 U/LCritically ngl21-86Kmr [facility] CenterComment on above:Performed By: #### CMP #### [facility] [address] [place] [address] Dr. Wilda Nelson gap [Moles/Vol]14.8 mmol/LNormalThe [facility] Comment on above:Performed By: #### CMP #### [facility] [address] [place] [address] Dr. Wilda PatelAST [Catalytic activity/Vol]15 U/LCritically vxq47-85Ruq [facility] CenterComment on above:Performed By: #### CMP #### [facility] [address] [address] [address] Wilda PatelBilirubin [Mass/Vol]0.7 mg/dLNormal0.2-1.3The [facility] Comment on above:Performed By: #### CMP #### [facility] [address] [address] [address] Wilda PatelCalcium [Mass/Vol]8.8 mg/dLNormal8.4-10.2The [facility] Comment on above:Performed By: #### CMP #### [facility] [address] [address] [address] Wilda PatelChloride [Moles/Vol]97 mmol/LCritically ghj40-340Pxf [facility] CenterComment on above:Performed By: #### CMP #### [facility] [address] [address] [address] Wilda PatelCO2 [Moles/Vol]26.9 mmol/WCspotm92.0-30.0The [facility] Comment on above:Performed By: #### CMP #### [facility] [address] [place] [address] Dr. Wilda PatelCreatinine [Mass/Vol]0.95 mg/dLNormal0.66-1.25The [facility] CenterComment on above:Performed By: #### CMP #### [facility] [address] [address] [address] Astudillo ChangEGFR-AF MONTENEGRIN>60Normal>=60The [facility] CenterComment on above:Performed By: #### CMP #### [facility] [address] [place] [address] Dr. Wilda CantuGFR-NON AF MONTENEGRIN>60Normal>=60The [facility] CenterComment on above:Performed By: #### CMP #### [facility] [address] [place] [address] Dr. Wilda PatelGlobulin (S) [Mass/Vol]4.2 g/dLNormalThe [facility] CenterComment on above:Performed By: #### CMP #### [facility] [address] [place] [address] Dr. Wilda PatelGlucose [Mass/Vol]97 mg/fAAypxry00-192Dub [facility] Comment on above:Performed By: #### CMP #### [facility] [address] [place] [address] Dr. Wilda PatelPotassium [Moles/Vol]3.7 mmol/LNormal3.4-5.0The [facility] Comment on above:Performed By: #### CMP #### [facility] [address] [place], [place] [address] Dr. Wilda PatelProtein [Mass/Vol]7.1 g/dLNormal6.1-8.2The [facility] Comment on above:Performed By: #### CMP #### [facility] [address] [place], [place] [address] Dr. Wilda PatelSodium [Moles/Vol]135 mmol/LCritically zym755-709Zzq [facility] CenterComment on above:Performed By: #### CMP #### [facility] [address] [place], [place] [address] Dr. Wilda PatelUrea nitrogen [Mass/Vol]11.0 mg/dLNormal9.0-20.0The [facility] CenterComment on above:Performed By: #### CMP #### [facility] [address] [place] [address] Dr. Wilda Cobos nitrogen/Creatinine [Mass ratio]11.6 mg/mgNormalThe [facility] CenterComment on above:Performed By: #### CMP #### [facility] [address] [place], [place] [address] Dr. Wilda PatelTobaccesequiel Screening.on 31-70-5246Yxefplv use status CPb) [facility] [address] DO Work Phone: Vital Signs Date TimeVital SignValuePerforming SdzivyfevVfnltnez80-95-8839 12:48-0400Body tsaxpt524.6 cmTimothy [place] DO Work Phone: noms Oefnuqrtgi17-99-4702 12:48-0400Body mass index (BMI) [Ratio]41.32 kg/l5Iyujfrl [place] DO Work Phone: noms Hchwgrgukr09-85-1203 12:48-0400Body temperature 97.39 [degF]Amber [place] DO Work Phone: [phone]08-13-2025 12:48-0400Body nlmorh103.12 kgTimothy [place] DO Work Phone: [phone] [place], [place] [address]Kcmrvuxxfm16-49-3523 12:48-0400Diastolic blood qmevamey50 mm[Hg]Amber [place] DO Work Phone: [phone] [place], [place] 1380308-13-2025 12:48-0400Heart rfxy016 /min Amber [place] DO Work Phone: [phone] [place], [place] 1380308-13-2025 12:48-7058RfS3% (BldA) [Mass fraction]95 %Amber [place] DO Work Phone: [phone] [place], [place] 1380308-13-2025 12:48-0400Systolic blood jeggjddg766 mm[Hg]Amber [place] DO Work Phone: [phone] [place], [place] 1380305-09-2025 13:26-0400Blood Pressure LocationThomas [facility] 13:26-0400 Diastolic blood vjajzxjr51 mm[Hg]Juan Francisco Johnson [facility]05-09-2025 13:26-0400Heart gmis414 /minThomas Johnson [facility]05-09-2025 13:26-0400 Respiratory rate22 /minThomas Johnson [facility]05-09-2025 13:26-7514BdS5% (BldA) [Mass fraction]96 %Juan Francisco Johnson [facility]05-09-2025 13:26-0400 Systolic blood xnkxwlto923 mm[Hg]Juan Francisco [facility]01-30-2025 13:32-0500 Diastolic blood mm[Hg][place] L[address] [facility]01-30-2025 13:32-0500Heart rate98 /minMikhail Chingus [address] [place], [place] 6133301-30-2025 13:32-0500 Respiratory rate18 /minMikhail Kirnus [address] [place], [place] 6133301-30-2025 13:32-3288EwV7% (BldA) [Mass fraction]98 %[place] Kirnus [address] [place], [place] 6133301-30-2025 13:32-0500 Systolic blood hefxokey893 mm[Hg][place] Kirnus [address] [place], [place] 6133301-07-2025 07:28-0500Blood Pressure LocationMikhail Kirnus [address] [place], [place] 6133301-07-2025 07:28-0500 Diastolic blood jetsvgin11 mm[Hg][place] Kirnus [address] [place], [place] 6133301-07-2025 07:28-0500Heart lqvv879 /minMikhail Kirnus [address] [place], [place] 6133301-07-2025 07:28-0500 Respiratory rate18 /minMikhail Kirnus [address] [place], [place] 6133301-07-2025 07:28-7848GxA6% (BldA) [Mass fraction]97 %[place] Kirnus [address] [place], [place] 6133301-07-2025 07:28-0500 Systolic blood xkzkeefa690 mm[Hg][place] Kirnus [address] [place], [place] 6133310-30-2024 13:37-0400 Diastolic blood igkvmdgv99 mm[Hg][place] Kirnus [address] [place], [place] 6133310-30-2024 13:37-0400Heart zpdb606 /minMikhail Kirnus [address] [place], [place] 6133310-30-2024 13:37-0400 Respiratory rate16 /minMikhail Kirnus [facility]10-30-2024 13:37-4832DyZ2% (BldA) [Mass fraction]96 %[place] [facility]10-30-2024 13:37-0400 Systolic blood uipglobj434 mm[Hg][place] [facility] [facility]10-02-2024 11:00-0400Body edkheq340.6 cmLeanne Edvin DO Work Phone: [facility] CenterMlrhkuhmhr33-19-9103 11:00-0400Body mass index (BMI) [Ratio]40.35 kg/v8Oybqrr Edvin DO Work Phone: [facility] CenterDmitxsmsmb53-82-1232 11:00-0400Body mvezom729.4 kgLeanne Edvin DO Work Phone: [facility] CenterMkdsuztihj56-84-3695 11:00-0400Diastolic blood gridljky54 mm[Hg]Misti Edvin DO Work Phone: [facility] CenterJdxufyozhq86-82-3245 11:00-0400Heart rate84 /min Misti Edvin DO Work Phone: [facility] CenterVjmoyxhqac65-96-4017 11:00-0964McM4% (BldA) [Mass fraction]93 %Misti Edvin DO Work Phone: [facility] CenterYtmdifstge58-98-9982 11:00-0400Systolic blood hjgvsyyf966 mm[Hg]Misti Edvin DO Work Phone: [facility] CenterMtkpnwnydo20-50-4988 15:27-0400Body xivexs979.6 cmTimothy [place] DO Work Phone: noN[facility] CenterNwunnfxcpy48-01-0179 15:27-0400Body mass index (BMI) [Ratio]38.09 kg/f6Thmuwbb [place] DO Work Phone: noNevada [facility] Medical CenterChwxwafcay39-68-8663 15:27-0400Body temperature 96.49 [degF]Amber [place] DO Work Phone: [facility] CenterIhpxonymwp84-46-6476 15:27-0400Body kbsoqv522.05 kgTimothy [place] DO Work Phone: [facility] CenterAcrggvytvb21-18-6560 15:27-0400Diastolic blood jzcrngqe25 mm[Hg]Amber [place] DO Work Phone: [facility] CenterSgkhjhhqqw43-40-3759 15:27-0400Heart pycu231 /min Amber [place] DO Work Phone: [facility] CenterXgptamcutz03-91-4349 15:27-9689DvZ4% (BldA) [Mass fraction]95 %Amber [place] DO Work Phone: noNevada [facility] Medical CenterHmmyabkxvj44-47-2779 15:27-0400Systolic blood mm[Hg]Amber [place] DO Work Phone: noNevada [facility] Medical CenterHktgldppnk43-64-8386 14:09-0500Body luztts433.64 cmReferring Provider [facility] [address] DO Work Phone: [phone] 14:09-0500Body mass index (BMI) [Ratio]34.7 kg/c0Pglygfsiq Provider [facility] [address] DO Work Phone: [phone] 247-438501-25-2023 14:09-0500Body surface area Derived from formula2.06 g9Zvxmbsjnq Provider [facility] [address] DO Work Phone: [phone] 14:09-0500Body midaxj21.52 kgReferring Provider [facility] [address] DO Work Phone: 1(706) 976-232901-25-2023 14:09-0500Diastolic blood mm[Hg] Referring Provider [facility] [address] DO Work Phone: [phone]) 739-125401-25-2023 14:09-0500Heart rate84 /minReferring Provider [facility] [address] DO Work Phone: [phone]) 668-735001-25-2023 14:09-0500Systolic blood mm[Hg] Referring Provider [facility] [address] DO Work Phone: [phone]) 322-346906-15-2022 15:27-0400Body bpokvi622.64 cmReferring Provider [facility] [address] DO Work Phone: [phone] 15:27-0400Body mass index (BMI) [Ratio] 35.02 kg/m1Tmraazgru Provider [facility] [address] DO Work Phone: [phone])[phone] 15:27-0400Body surface area Derived from formula2.07 g6Hzivpdzwp Provider [facility] [address] DO Work Phone: [phone])[phone] 15:27-0400Body diwoxg86.43 kgReferring Provider [facility] DO Work Phone: [phone] 15:27-0400Diastolic blood srspvyjy30 mm[Hg] Referring Provider [facility] [address] DO Work Phone: [phone] 15:27-0400Heart rate84 /minReferring Provider [facility] [address] DO Work Phone: [phone] 15:27-0400Systolic blood ticpfwsg557 mm[Hg] Referring Provider [facility] [address] DO Work Phone: [phone] 11:50-0400Body aubbcu386.6 cmTrauma FegvwnpnAqcmcRobdnf11-95-1641 11:50-0400Body mass index (BMI) [Ratio]35.19 kg/m2 Trauma RzlvybxrJezsiLmwqio49-17-3366 11:50-0400Body hexcue86.88 kgTrauma ZyuqmzcxMhjybDhnjak45-62-3415 11:50-0400Diastolic blood ysgvwrct10 mm[Hg]Trauma LlgfdsauMnwulUvambd12-74-5074 11:50-0400Heart nyxw258 /minTrauma Resident OylimFomclf51-17-1961 11:50-0400Respiratory rate18 /minTrauma Resident NdlolTokqhc65-30-0933 11:50-0400Systolic blood gcotypav956 mm[Hg]Trauma Resident JiqkkLpsqin66-79-9352 11:05-0500Body azjpxq417.64 cmReferring Provider [facility] [address] DO Work Phone: [phone] 11:05-0500Body mass index (BMI) [Ratio] 35.83 kg/j7Oxxsdzubt Provider [facility] [address] DO Work Phone: [phone] 11:05-0500Body surface area Derived from formula2.09 k7Ryenyatci Provider [facility] [address] DO Work Phone: 1(754) 343-849812-13-2021 11:05-0500Body bydwzs789.7 kgReferring Provider [facility] [address] DO Work Phone: [phone] 11:05-0500Diastolic blood qkyfquxm77 mm[Hg] Referring Provider [facility] [address] DO Work Phone: 1(415) 296-259012-13-2021 11:05-0500Heart rate96 /minReferring Provider [facility] [address] DO Work Phone: [phone] 814-756012-13-2021 11:05-0500Systolic blood nhgkomhv861 mm[Hg] Referring Provider [facility] [address] DO Work Phone: Encounters Encounter DateEncounter TypeCare ProviderFacilityStart: 05-24-2025 End: 58-23-6580yefkvrnpyrNcokmf A SteinFacility:FTMCStart: 03-07-2025 End: 65-48-3720Rvtriv flowsheetAmber Cuellar DO Work Phone: NOMS [facility] 230Start: 03-07-2025 End: 71-07-7265Knglix flowsheetTimclair Gomez [place] DO Work Phone: noms [facility] 230Start: 03-07-2025 End: 17-66-8591Iayikq outpatient visit 25 minutesTimothy Patricia [place] DO Work Phone: noms [facility] 230Comment on above: Chronic obstructive pulmonary disease, unspecified COPD type (HCC) (Primary Dx); Acquired hypothyroidism ; Impaired fasting blood sugar; Primary hypertensionStart: 03-07-2025 End: 60-41-1068qadkhdktrqGMLPYEE L CUTLERNot AvailableStart: 02-22-2025 End: 24-07-5918bqhtupmvkfKemoav A ElizabethFacility:FTMCStart: 02-21-2025 End: 09-20-4851UrgvchNxfmyp Leah Edvin DO Work Phone: noms [facility]olaryngologyComment on above:Chronic obstructive pulmonary disease, unspecified COPD type (HCC)Start: 12-01-2024 End: 36-97-1607ftlhztxozvAsxuli A SteinFacility:FTMCStart: 12-01-2024 End: 60-40-5477Hjpimte encounter procedureThomas A [facility] Start: 08-24-2024 End: 47-40-8201ohpjpzhmjnZU [place] LazcanoFacility:FTMCStart: 08-24-2024 End: 17-04-8117Ntcuhwn encounter procedureBlanco Lazcano [facility] Start: 08-01-2024 End: 26-78-4589Mkhccrpza to same day surgery centerBlanco Lzacano [facility] Start: 08-01-2024 End: 77-42-7219pylwfzkejwIacbfjw D KirnusFacility:FTMCStart: 07-24-2024 End: 92-72-5680gkphwvbugsBgvekyw D KirmadiFacility:FTMCStart: 07-24-2024 End: 23-31-8601Zajvucv encounter procedureBlanco Lazcano [facility] Start: 06-20-2024 End: 49-70-5287ikcfzodtagEU Blanoc VerdinmadiFacility:FTMCStart: 06-20-2024 End: 79-88-2977Wcgvlyj encounter procedureBlanco Lazcano [facility] Start: 06-02-2024 End: 71-30-5095Boianerbs Result EncounterShazia MCKEON Work Phone: noms External Department UnsolicitedStart: 06-02-2024 End: 34-24-0552Hjtlfqijp Result EncounterShazia MCKEON Work Phone: noms External Department UnsolicitedStart: 05-24-2024 End: 45-58-3493uopoxyveohFLMW NONEFacility:FTMCStart: 05-24-2024 End: 34-04-7871Mhbihxj encounter procedureBlanco Lazcano [facility] Start: 04-26-2024 End: 68-55-2815Cpqirw flowsChandler Lynn Edvin DO Work Phone: noms PULMStart: 04-26-2024 End: 70-47-8142Vcnwre flowsChandler Lynn Edvin DO Work Phone: noms SH PULMStart: 04-26-2024 End: 51-33-2272Acxszh outpatient new 45 minutesMisti Pardo DO Work Phone: noms SH PULMComment on above:Chronic obstructive pulmonary disease, unspecified COPD type (CMS/HCC) (Primary Dx); COPD with acute exacerbation (CMS/HCC); HypersomnolenceStart: 04-26-2024 End: 98-56-1811auzfftrrlsDTQPDB K STRACKNot AvailableStart: 01-12-2024 End: 65-68-7565Ackvey outpatient visit 25 minutesAmber Patricia Polo DO Work Phone: noMS [facility] 230Comment on above:COPD with acute exacerbation (CMS/HCC) (Primary Dx)Start: 38-63-5655xdiomooxrnDJBYOBF PROVIDER [facility]Start: 12-03-2022 End: 77-89-5954Dio-admission davejovani [facility]aint [facility] Start: 06-02-4662Bd RenewalReferring Provider Unknown [facility] [facility] DO Work Phone: Start: 60-69-5717DYS, Provider: Aaron Ocampo, Status: Pen, Time: 2:00 PMReferring Provider [facility] [facility] DO Work Phone: Start: 47-48-3148Covibt outpatient visit 25 minutes Referring Provider [facility] DO Work Phone: Start: 24-49-4559xyqclmvcgxYXK UNKNOWNFacility: Start: 08-17-2022 End: 26-53-0761Zsuxfc outpatient visit 25 minutesVanessa Wilson MD Work Phone: [facility] Trauma SurgeryComment on above:Attention to ileostomy (HCC) (Primary Dx); Chronic obstructive pulmonary disease, unspecified COPD type (HCC); Ischemic cardiomyopathy; S/P colostomy takedownStart: 19-78-6685Sa RenewalReferring Provider [facility] Heart-[place] 250 DO Work Phone: Start: 68-14-5723Vg RenewalReferring Provider Unknown [facility]-[place] 250 DO Work Phone: Start: 48-55-0903Qndtqtsam encounterVanessa Wilson MD Work Phone: [facility] Trauma SurgeryStart: 07-22-2022 End: 76-26-3555mwphcurszyQIZFFF SERVICES FAMILYFacility:I0Xywxq: 06-08-2022 End: 96-82-4268sftgflpmkySrqactslj LowrieFacility:[facility] Hospitaltart: 06-08-2022 End: 63-37-3522xkeunjcflsBK Medhat Baltazar Work Phone: [facility] Work Phone: Start: 06-08-2022 End: 28-05-9838Xkqtsgvz ReferredDO Medhat Baltazar Work Phone: [facility] CenterStart: 20-08-6870jufwbyziblZAAFKN SAMSAFacility:B4Irjhj: 05-28-2022 End: 75-19-9070pxactkkwozOndan N. MorrisFacility:[facility] Hospitaltart: 05-28-2022 End: 40-31-8833Hgtbpif encounter procedureDO Uatsdin Jimyaugust Work Phone: [facility]-Sleep LabStart: 10-90-0069Dsnyz UpdateReferring Provider [facility] Heart-[place] 250 DO Work Phone: Start: 12-61-3145Pmypzrq encounter procedureReferring Provider [facility]-[place] [address] [place] Work Phone: Start: 14-23-6515irfouxltcrPsAraceli Ocampo II Facility:[id number]: 03-12-2022 End: 95-68-6608sbnhhqmgmuEwbfirqfm LowrieFacility:[facility] Hospitaltart: 03-12-2022 End: 32-68-3543Bqamivse ReferredDO Carmine Jackson Work Phone: [facility] ServicesStart: 05-55-4356Ltervv outpatient visit 25 minutesReferring Provider UnknownUN[facility] [place] [facility]-[place] 250 DO Work Phone: Start: 16-52-9363xojfxmchuoRmwyrnwEusebio Ocampo II Facility:[id number]: 12-30-2021 End: 55-95-3314Yqtree outpatient visit 15 minutesTrauma Surgery Resident [facility] Trauma SurgeryComment on above:Attention to ileostomy (HCC) (Primary Dx); Body mass index (BMI) 35.0-35.9, adultStart: 24-67-9361Tllplosng encounter Jina HolgerPremier Health Trauma SurgeryStart: 00-91-1721Iu RenewalReferring Provider [facility] Heart-[place] 250 DO Work Phone: Start: 05-57-8414Gk RenewalReferring Provider Unknown [facility] Heart-[place] 250 DO Work Phone: Start: 57-43-9392Xd RenewalReferring Provider Unknown [facility] Heart-[place] 250 DO Work Phone: Start: 07-29-2021 End: 37-71-9570gdfuujtuofRXDDXA SERVICES FAMILYFacility:P2Tfild: 75-26-9743Wh RenewalReferring Provider [facility] Heart-[place] 250 DO Work Phone: Start: 64-75-6463Gb RenewalReferring Provider Unknown [facility] Heart-[place] 250 DO Work Phone: Start: 74-29-2263Pclyjr outpatient visit 25 minutes Referring Provider [facility] Heart-[place] 250 DO Work Phone: Start: 93-43-3828HVWGBMg PCP [facility] Heart- [place] 250 DO Work Phone: Start: 40-66-6353El RenewalNo PCP [facility] Heart-[place] 250 DO Work Phone: Start: 17-43-1958Aamsvkt encounter procedureAARON RAMSEYNFacility:[id number]: 72-08-0791Mudlywm encounter procedurePATY GUERRA Facility:[id number] encounter statusReferring Provider Unknown-[facility] Heart-[place] 250 DO Work Phone: Procedures DateProcedureProcedure DetailPerforming ClinicianStart: 01-55-1509Bxxrelxwqsnn coronary interventionMiedenilsonfreda Verdinmadi Comment on above:PCI of CircumflexStart: 08-96-2466JHL -[facility] Hugo MCKEON Work Phone: Start: 12-27-2023 End: 44-09-7208Eouhtmtwvfog telephone assessment minIleostomy in place (HCC)Acute Care Surgery ResidentComment on above:Ileostomy in place (HCC) (Primary Dx); CAD S/P percutaneous coronary angioplasty; Chronic obstructive pulmonary disease, unspecified COPD type (HCC); Chronic congestive heart failure, unspecified heart failure type (HCC)Start: 05-63-2747NfabjkgjihnEnyya ResidentStart: 40-83-3373Plgvi colonoscopyNo PCP None Comment on above:CCF;AppendectomyNo PCP NoneAppendectomyRyan Connie ColostomyRyan Connie Heart structure (body structure)Nabil Rosales Operative procedure on ankleNo PCP NonePercutaneous transluminal coronary angioplastyNo PCP NoneStructure of left lower leg (body structure)Nabil Rosales Plan of Treatment DateCare ActivityDetailAuthorStart: 40-28-3799Gpqpqmczw for malignant neoplasm of colonMetroHealthStart: 56-37-7634Dzuip panelCholesterolMetroHealthStart: 09-11-2025 End: 55-57-3170Xlelzul encounter aqfdgomjz95/17/2026 2:00 PM EST Office Visit [facility] [address] [place] [address] Amber Cuellar, [address] [place] [address] [facility] 230 Start: 66-55-5023Daguemihz vaccinationInfluenza Vaccine (#1)[facility] Start: 03-07-2025 End: 67-18-3081CNL W Auto Differential panel - BloodCBC and differential Lab Routine Impaired fasting blood sugar Primary hypertension Expected: 03/07/2025, Expires: 03/07/2026NOME HealthcareComment on above:Expected: 03/07/2025, Expires: 03/07/2026Start: 03-07-2025 End: 23-83-3360Cudtfexvvuhtr metabolic 2000 panel - Serum or PlasmaComprehensive metabolic panel Lab Routine Impaired fasting blood sugar Primary hypertension Expected: 03/07/2025, Expires: 03/07/2026NOME HealthcareComment on above: Expected: 03/07/2025, Expires: 03/07/2026Start: 03-07-2025 End: 69-98-1116Rrcpbhelhh A1c/Hemoglobin.total in BloodHemoglobin A1c Lab Routine Impaired fasting blood sugar Expected: 03/07/2025, Expires: 03/07/2026 [facility] HealthcareComment on above:Expected: 03/07/2025, Expires: 03/07/2026Start: 03-07-2025 End: 10-36-5183Nocuo 1996 panel - Serum or PlasmaLipid panel Lab Routine Impaired fasting blood sugar Primary hypertension Expected: 03/07/2025, Expires: 03/07/2026NOME HealthcareComment on above:Expected: 03/07/2025, Expires: 03/07/2026Start: 03-07-2025 End: 69-46-2139Ddcrvccbscvz/Creatinine panel in random UrineMicroalbumin / creatinine urine ratio Lab Routine Impaired fasting blood sugar Primary hypertensionExpected: 03/07/2025, Expires: 03/07/2026NOME HealthcareComment on above:Expected: 03/07/2025, Expires: 03/07/2026Start: 03-07-2025 End: 48-49-2341Rlwkufcbzce [Units/volume] in Serum or PlasmaTSH Lab Routine Acquired hypothyroidism Expected: 03/07/2025, Expires: 03/07/2026[facility] Comment on above:Expected: 03/07/2025, Expires: 03/07/2026Start: 03-07-2025 End: 23-86-9021Jixmsnxgj (T4) free [Mass/volume] in Serum or PlasmaT4, free Lab Routine Acquired hypothyroidism Expected: 03/07/2025 (Approximate), Expires: 03/07/2026[facility] Work Phone: Comment on above:Expected: 03/07/2025 (Approximate), Expires: 03/07/2026Start: 03-07-2025 End: 28-23-9625Wzwumba encounter sygbejpmr12/13/2025 1:20 PM EDT Office Visit [facility] [address] [place] [address] Amber Cuellar, DO [address] [place] [address] [facility]rivedNOCritical access hospital 230Comment on above:ArrivedStart: 07-17-2024 End: 52-07-5060Zdnhbdo encounter ycgbmoqbt80/23/2024 11:00 AM EST Office Visit [facility] [address] [place] [address] Amber Cuellar L, DO [address] [place] [address] [facility] 230Start: 07-04-2024 End: 18-22-3463Wdhkozq encounter /10/2024 2:15 PM EST Office Visit [facility] [address] [place] [address] Misti Pardo, DO [address] [place] [address] [facility] PULMStart: 04-26-2024 End: 85-50-6621Xcfgcqy encounter procedureNOMS PULMComment on above:COPD with acute exacerbation ([facility])Start: 07-26-2622Lcpwdniat vaccinationInfluenza Vaccine (#1)[facility] HealthcareStart: 13-03-4711VOE, Provider: Aaron Ocampo, Status: Pen, Time: 1:20 PMFUV, Provider: Aaron Ocampo, Status: Pen, Time: 1:20 [facility] [employer] 250 DO Work Phone: Start: 01-60-1492KUMJG-19 Vaccine ( season) COVID-19 Vaccine ( season)[facility]roHealthStart: 45-60-1862QZWNCJ NUC, Provider: [place] HHVI NUCLEAR 01,[id number], Status: Pen, Time: 12:00 PMSTRESS NUC, Provider: [place] HHVI NUCLEAR 01,[id number], Status: Pen, Time: 12:00 PM [facility] [employer] 250 DO Work Phone: Start: 67-53-7820DCO, Provider: Aaron Ocampo, Status: Pen, Time: 2:00 PMFUV, Provider: Aaron Ocampo, Status: Pen, Time: 2:00 [facility]no[facility] [place]wordW[place] 250 DO Work Phone: Start: 08-17-2022 End: 30-05-5217Qajgowg encounter ufdidfwbw16/23/2023 Office Visit [facility] Trauma SurgeryStart: 72-60-1911Cwgvv metabolic 2000 panel - Serum or PlasmaBasic Metabolic PanelMetroHealthStart: 92-64-2821Cxuemmrtjm measurement Basic Metabolic PanelMetroHealthStart: 75-57-0261Berevqezn vaccinationInfluenza Vaccine (#1)MetroHealthStart: 51-09-4118YEOW, Provider: [place] HHVI NUCLEAR 01,[id number], Status: Pen, Time: 2:00 PMMUGA, Provider: [place] HHVI NUCLEAR 01,[id number], Status: Pen, Time: 2:00 PMSno[facility] [employer] 250 DO Work Phone: Start: 86-28-9897LAW, Provider: Aaron Ocampo, Status: Pen, Time: 3:30 PMFUV, Provider: Aaron Ocampo, Status: Pen, Time: 3:30 PMMP-[facility] [employer] 250 DO Work Phone: Start: 12-30-2021 End: 12-42-2396Vzqgikn encounter mjrozneyg32/07/2022 Office Visit Trauma [facility] Trauma SurgeryStart: 98-38-3909XLN, Provider: Aaron Ocampo, Status: Pen, Time: 8:00 AMFUV, Provider: Aaron Ocampo, Status: Pen, Time: 8:00 AMMP-[facility] HealthcareW[facility] 250 DO Work Phone: Start: 67-42-4713Bwmvesf stimulating hormone measurementTSHMetroHealthStart: 94-80-4732Mfjkaimvbidx vaccinationMetroHealth Start: 92-42-8499Wfyitqmgejy of occult blood in single stool specimenFIT MetroHealthStart: 49-96-3999Dimacdhy (RZV) Vaccine (1 of 2)Shingles (RZV) Vaccine (1 of 2)MetroHealthStart: 28-11-7836Mqsvbmvia for malignant neoplasm of colonMetroHealthStart: 73-02-1361Yqaph panelCholesterolMetroHealthStart: 05-15-2576Vndqsojcw A (HAV) Vaccine (optional start 19+ years)Hepatitis A (HAV) Vaccine (optional start 19+ years)[facility]roHealthStart: 64-21-4614Mymhwioqn B vaccinationHepatitis B (HBV) Vaccine (1 of 3 - 19+ 3-dose series)[facility] Start: 81-24-5029Oexibzp + diphtheria + acellular pertussis vaccine (product) Tdap BoosterMetroHealthStart: 06-54-2644UYYIB-19 Vaccine (#1)COVID-19 Vaccine (#1)[facility]roHealthStart: 06-19-2689RPZZL-19 Vaccine (#1)COVID-19 Vaccine (#1) MetroHealthStart: 65-53-5410Tofbkfhcw aortic aneurysm screeningPulmonary Function TestingMetroHealthStart: 54-07-6554Riacptuq FractionEjection Fraction MetroHealthStart: 44-50-1964Gcwamawdy Function TestingPulmonary Function Testing MetroHealthStart: 66-26-7048Oehlwqqhf for malignant neoplasm of colonMetroMckitrick Hospital Immunizations Immunization DateImmunizationNotesCare NvhpkvytDkrxwnvq80-23-5052dgebpbnov virus vaccine, unspecified formulationTimothy Lakeside DO Work Phone: [facility] Nsdlyvwvuo26-83-6175mxururgcc, high dose seasonal, preservative-freeReferring Provider [place] [address] DO Work Phone: [phone]vbywt virus vaccine, unspecified formulationTimothy Lakeside DO Work Phone: [facility] Ukyiqaxvfi78-39-9531XphaovqUgozgja Caridad FkxruUogsxr58-86-4610ntebgaksy, seasonal, injectableNo PCP [place] [address] DO Work Phone: [phone]u virus vaccine, unspecified formulationVanessa [place] MD Work Phone: [phone]31465EtjwzWtopvl89-02-7880qqxobauefogn polysaccharide vaccine, 23 valentNo PCP FgsoCpihuCixutx59-17-1868Uslhxefci, injectable, Madin [place] Canine Kidney, preservative free, quadrivalentNo PCP [place] [address] DO Work Phone: [phone]vnjdsb virus vaccine, unspecified formulationReferring Provider [place] [address] DO Work Phone: [phone]osgpoc, injectable, quadrivalent, preservative freeNo PCP NoneR[facility] Payers DatePayer CategoryPayerPolicy [id number] [id number] 2.16840.1.205305.3.57[id number] 2.840.1.947978.3.57[id number] 2.16840.1.478501.3.57[id number] 2.840.1.989929.3.57[id number] 2.840.1.789197.3.57[id number] 2.840.1.113679.3.57[id number] 2.840.1.360163.3.57[id number] 2.840.1.098133.3.579.[id number] 2.0.1.806780.3.57[id number] 2.840.1.310606.3.57[id number] 2.840.1.990820.3.57[id number] 2.840.1.003764.3.57[id number] 2.840.1.399933.3.57[id number] 2.840.1.615839.3.57[id number] 2.840.1.239085.3.579.2.612357-31-1767Jwbdwlr8035739 2..1.244327.3.579.2.2[id number] 2..1.409574.3.579.2.[id number] 2..1.443781.3.57[id number] 2..1.110884.3.57[id number] 2..1.808500.3.579.2.727 [id number]fl-rdi 1155v910-6979-9384-ev6f-65o0gpb68401WqqhuwvJ7954241332BixtaxtEogfbahTCTQ/HFA/FAP [id number] 21g3783h-9323-2n6j-h5cg-[id number] 2..1.987160.3.579.2.991Omahkqv16309190 2..1.083262.3.579.2.531 [id number] 2..1.518130.3.579.2.531 Social History DateTypeDetailFacilityStart: 01-14-2021 End: 19-11-2079Vovyxt consumes alcoholRarely consumes alcoholScott [place]ille [address] DO Work Phone: Comment on above:QUIT 2017 1 PPD;quit 05/26/2021;one electronic device a week;Start: 01-14-2021 End: 31-46-9719Nvvvhtw smoking status RIISLight tobacco smokerMetroHealthHistory of tobacco useCigarette SmokerMetroHealthStart: 01-14-2021 End: 94-32-1596Ncflbne use and exposureSmokeless tobacco non-userMetroHealth Start: 68-60-0746Gvjozdp CommentSmokes approx three cigarettes a month when pt is stressed MetroHealthStart: 14-61-5890Cqz Assigned At BirthNot on file MetroHealthStart: 11-28-2020 End: 13-19-9065Gczedgj smoking status NHISEx-smoker (finding)[facility] Hospitaltart: 83-83-7633Ynz Assigned At [facility] Hospitaltart: 12-30-2021 End: 13-42-3332Wls Assigned At [facility] HospitalHistory of tobacco useCurrent smokerNOME HealthcareStart: 04-25-2024 End: 77-98-4759Noihwosqe beverage intakeLifetime non-drinker (finding)[facility] HealthcareStart: 45-88-6535Ndrwpvw Commentsoda/pop 1-2 cups/dayNONevada Regional Medical Center Sexual OrientationWilson Street Hospital Start: 52-77-1641MxrJejg (finding)[facility]htart: 81-79-0504ZiiSpkiONLD Healthcare Medical Equipment Procedure CodeEquipment CodeEquipment Original TextEquipment IdentifierDatesCL STENT REAGAN 3.0 X 28FDAStart: 59-16-2929GU STENT REAGAN 3.0 X 28FDAStart: 37-98-0952YAK of Circumflex Unknown 08/01/24 Non Biological Left Circumflex Coronary ArteryFDAStart: 47-86-1403Sjlozna on above:3.1b65DGV of Circumflex Unknown 08/01/24 Non Biological Left Circumflex Coronary ArteryFDAStart: 44-02-8861Jcvexxa on above:3.0w97QWO of Circumflex Unknown 08/01/24 Non Biological Left Circumflex Coronary ArteryFDAStart: 33-62-3474Hvdeeyu on above:3.5x18 Functional Status BbmgFybpiqwpllRznekkWbiodfar99-26-2638Vhfieby Health Questionnaire 2 item (PHQ- 2) [Reported][facility] Medical CenterIarqidmqxc50-85-0428Qaofmufwrs StatusN/AFisher - [facility] HospitalPcizvs54-96-3152Udzflxpeor StatusN/AFisher [facility]01-07-2025 Functional StatusNoFisher - [facility] HospitalSxiigj05-64-5872Wopaoqakvq StatusN/A Aaron [facility] Clinical Notes 12-19-2021 to 03-07-2025 Note Date & EzhjAhjmUarvbicw22-90-1077 History of Present illness Narrative* Amber Cuellar, DO - 03/07/2025 1:20 PM EDT Images from the original note were not included. [facility] [place], [place] SUBJECTIVE: HPI: Eliceo Kenny is a 59 y.o. male who presents with chief complaint of Annual Exam Pt presents for his annual wellness. Pt does not need any refills and has no concerns at this time. I have reviewed and reconciled the history and medication list with the patient today. History of Present Illness This is a patient presenting for a yearly checkup. He reports stable respiratory health with no significant changes in his breathing pattern. He continues to use Symbicort and an emergency inhaler as part of his treatment regimen but has discontinuedthe use of Spiriva and Trelegy. His thyroid condition is managed by another physician, and he has not been taking his prescribed thyroid medication. He has experienced several episodes of chest pain, which required emergency room visits and short hospital stays. He also contracted COVID-19, which affected his respiratory and cardiac functions, but he recovered within two days. 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 He is also on spironolactone, lisinopril, potassium, Lasix, clopidogrel, atorvastatin, and baby aspirin. PAST MEDICAL HISTORY: - COPD - Thyroid condition - Chest pain - COVID-19 MEDICATIONS - Symbicort - Metoprolol 100 mg - Amlodipine - Spironolactone - Lisinopril - Levothyroxine - Potassium - Lasix - Clopidogrel - Atorvastatin - Aspirin - Previously took Spiriva - Previously took Trelegy - Previously took Carvedilol (Reason for Discontinuation: After stent placement) Depression: Not at risk (03/07/2025) PHQ-2 PHQ-2 Score: 0 reports that he has quit smoking. His smoking use included cigarettes. He has never used smokeless tobacco. He reports that he does not drink alcohol and does not use drugs. OBJECTIVE: 09/29/2022 12:00 PM 01/12/2024 3:27 PM 01/17/2024 9:59 AM 04/26/2024 11:00 AM 03/07/2025 12:48 PM Vitals BMI 34.51 kg/m2 38.09 kg/m2 38.74 kg/m2 40.35 kg/m2 41.32 kg/m2 BSA (m2) 2.13 m2 2.23 m2 2.25 m2 2.29 m2 2.32 m2 Systolic 132 128 120 131 128 Diastolic 66 82 90 88 76 Heart Rate 101 90 84 102 SpO2 95 % 95 % 93 % 95 % Temp 96.5 F 97.9 F 97.4 F Height (in) 5' 6 5' 6 5' 6 5' 6 5' 6 Weight (lb) 213.8 236 240 250 256 Visit Report Report Report Report Physical Exam Physical Exam General Appearance: Alert, no distress. Vital signs: Blood pressure is normal. Respiratory: No respiratory distress, normal work of breathing. Lung sounds are diminished. CV: RRR, no murmur Skin: Warm and dry, no rash. Neurological: Normal. Psychiatric: normal affect, normal thought content. Results No results found for this or any previous visit (from the past 4 weeks). ASSESSMENT AND PLAN: Assessment/Plan Diagnoses and all orders for this visit: Chronic obstructive pulmonary disease, unspecified COPD type (HCC) - tiotropium (Spiriva Respimat) 2.5 MCG/ACT inhaler; Inhale 2 puffs 1 (one) time each day at the same time - budesonide-formoterol (Symbicort) 160-4.5 MCG/ACT inhaler; Inhale 2 puffs every 12 (twelve) hours Acquired hypothyroidism - T4, free; Future - TSH; Future Impaired fasting blood sugar - Microalbumin / creatinine urine ratio; Future - Hemoglobin A1c; Future - Lipid panel; Future - Comprehensive metabolic panel; Future - CBC and differential; Future Primary hypertension - Microalbumin / creatinine urine ratio; Future - Lipid panel; Future - Comprehensive metabolic panel; Future - CBC and differential; Future Assessment & Plan 1. Chronic obstructive pulmonary disease: Stable. - Prescriptions for Symbicort and Spiriva will be renewed. - Use Symbicort and Spiriva daily to help with breathing. 2. Thyroid disorder. - Blood work will be ordered today to assess thyroid levels. - Adjustments to thyroid medication will be considered based on results. 3. Cardiac issues: Acute on Chronic. - Episodes of chest pain requiring emergency room visits and hospitalization. Continues to follow with cardiology - Currently on metoprolol 150 mg, amlodipine, spironolactone, lisinopril, levothyroxine, potassium,Lasix, clopidogrel (Plavix), atorvastatin, and baby aspirin. - Blood pressure is normal today. Follow-up - Blood work to be drawn today. 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 (HCC) HFrEF (heart failure with reduced ejection fraction) ([facility]) Mucopurulent chronic bronchitis (HCC) Nicotine dependence with nicotine-induced disorder Other hyperlipidemia Other obesity due to excess calories Presence of colostomy (HCC) Primary hypertension Abdominal wall fluid collections Acute embolism and thrombosis of unspecified deep veins of right lower extremity (HCC) Abdominal wall abscess Acute respiratory failure with hypoxia (HCC) Acute respiratory failure (HCC) COPD (chronic obstructive pulmonary disease) (HCC) COPD exacerbation (HCC) Cardiomyopathy, unspecified (HCC) Cerebral infarction, unspecified (HCC) Chronic systolic (congestive) heart failure (HCC) Cognitive communication deficit Difficulty in walking, not elsewhere classified Colitis Diverticulitis of intestine, part unspecified, with perforation and abscess without bleeding Diverticulitis of large intestine with perforation without bleeding Diverticulosis Dizziness, nonspecific History of pulmonary embolus (PE) History of tobacco abuse Hypotension due to drugs Ischemic cardiomyopathy Lower GI bleed Muscle weakness (generalized) Oral thrush Other nonrheumatic mitral valve disorders Pneumonia, unspecified organism QT prolongation S/P colostomy takedown Shortness of breath Single subsegmental pulmonary embolism without acute cor pulmonale (HCC) Sleep apnea, unspecified Ventricular tachycardia (HCC) Afib (HCC) Anxiety Bronchospasm Status post non-ST elevation myocardial infarction (NSTEMI) Status post partial resection of colon Ventricular bigeminy Respiratory failure with hypoxia (HCC) Atherosclerosis of coronary artery without angina pectoris Past Medical History: Diagnosis Date Abscess of sigmoid colon due to diverticulitis 01/17/2024 Angina pectoris Bilateral carpal tunnel syndrome 06/27/2024 Cardiogenic pulmonary edema (HCC) 01/17/2024 Chronic combined systolic and diastolic congestive heart failure (HCC) 06/27/2024 Chronic obstructive pulmonary disease (HCC) 06/27/2024 Colostomy present (HCC) COPD (chronic obstructive pulmonary disease) (HCC) H/O ileostomy Heart failure (HCC) History of stomach ulcers Hx of non-ST elevation myocardial infarction (NSTEMI) 06/27/2024 Hyponatremia 01/17/2024 Hypothyroidism 06/27/2024 Insomnia 06/27/2024 Memory change 06/27/2024 NSTEMI (non-ST elevated myocardial infarction) (HCC) 06/27/2024 Obstructive sleep apnea 06/27/2024 Single subsegmental thrombotic pulmonary embolism without acute cor pulmonale ([facility]) 09/07/2019 Smoking 01/17/2024 Syncope 01/17/2024 Tobacco user 06/27/2024 Vertigo 06/27/2024 Vitamin D deficiency 06/27/2024 documented in this encounterHedrick Medical CenterOakeiqusdg62-04-3696 NoteOperative Report Procedure Left heart catheterization procedure report DATE OF PROCEDURE: 08/01/2024 RIGGER UP Blanco Lazcano MD [facility] INDICATION: New onset cardiomyopathy, history of coronary artery disease BRIEF HISTORY: The patient is a 58-year-old male with past medical history of CAD, PCI to the circumflex artery, who presents with new onset cardiomyopathy with depressed LVEF. PROCEDURE(S) PERFORMED: Left Heart Catheterization Selective Coronary Angiography IVUS guided PCI to the proximal/mid circumflex artery with 1 JESSIE Moderate Sedation PRE-PROCEDURAL INFORMED CONSENT: The procedure and conscious sedation were discussed in detail withthe patient/next of kin/durable power of including the indications, expected outcomes, potential treatment options based upon the results, alternative treatment options and benefits, risks and possible complications associated with the procedure. The patient/next of kin/durable power of expressed an understanding of the information provided and willingness to proceed. Signed, informed consent forthe procedure was obtained for all of the above. DESCRIPTION OF THE PROCEDURE: In the postabsorptive state, the patient was brought to the Adult Cardiac Computer System Specialist and placed on the table. The planned puncture sites/areas were prepped and draped in usual sterile fashion and a safety time-out was performed. Moderate Sedation was given by the Cardiac Computer System Specialist RN. RIGHT RADIAL ARTERY ACCESS: The puncture site was infiltrated with 1% lidocaine. The modified Seldinger technique was performed to access the right radial artery using a 21G needle radial access kit.A wire was threaded into the radial artery followed by upsizing to a 5/6F slender 10cm sheath. Verapamil 5 mg was administered into the sheath. The sheath was then flushed with heparinized saline andIV UFH was administered via peripheral IV by the laborer yard RN after the catheter crossed into the ascending aorta. Selective left and right coronary artery angiography : Under fluoroscopic guidance, a 5 F JR4 diagnostic catheter was then advanced over the 0.035 260cm J-tipped guidewire to the level of the aorticvalve. 5 F JR4 diagnostic catheter was advanced over the guidewire across the Aortic valve and intothe left ventricle. Hemodynamic measurements were then obtained. Left ventriculography was not performed. The JR4 catheter was then pulled back into the ascending aorta for assessment of LV-Ao gradient. The JR4 diagnostic catheter was then be used to selectively engage the RCA ostium and angiographic images under multiple projections were obtained. Then the JR4 catheter was exchanged for a 5 F JL3.5 diagnostic catheter over guidewire. Under fluoroscopic guidance, the JL3.5 diagnostic catheter was then be used to selectively engage the LCA ostium and angiographic images under multiple projections were obtained. This was followed by IFR RCA and PCI to the circumflex artery, as described below. The procedure was concluded by removal of all the catheters, wires and sheaths. Accesses were managed as outlined below. No immediate complications COMPLICATIONS: None ESTIMATED BLOOD LOSS: <50cc CONTRAST ADMINISTERED: Please see Adult Cardiac Computer System Specialist Log for further details FINDINGS: SELECTIVE CORONARY ANGIOGRAPHY: Right dominant System Left Main: Free of significant disease LAD: Mild diffuse disease in its mid segment D1: Free of significant disease D2: Free of significant disease LCx: Large vessel with evidence of a previously placed stent in the mid/proximal segment with in-stent restenosis in the range of 90% with REUBEN II flow. The stent is extending to OM1. Proper circumflex is jailed by the previously placed stent with evidence of REUBEN I flow. Collaterals are appreciated from the RCA to the distal circumflex artery OM1: Large vessel, free of significant disease OM2: Moderate-sized vessel, free of significant disease Ramus Intermedius: Absent RCA: Large, anatomically superdominant vessel with evidence of a long stenosis in its mid segment of approximately 60% rPDA: Mild diffuse disease rPLB: Mild diffuse disease LEFT HEART CATHETERIZATION: LVEDP: 24 mmHg LV EJECTION FRACTION and WALL MOTION: Not assessed Following assessment of the diagnostic angiogram, I felt that we should proceed to the IFR of the RCA, given presence of the moderate stenosis in the range of 60%. Clearly, circumflex artery had evidence of significant in-stent restenosis and is supplying a large territory, therefore we elected to intervene on the circumflex artery. iFR assessment note The patient was heparinized. A 6 [place] JR4 guiding catheter was used. Right coronary artery was engaged. Intracoronary nitroglycerin was administered. Pressure wire was advanced to the proximal RCA,and after performance of advanced normalization, advanced to the distal RCA with no technical difficulties. iFR was assessed at 0.95, consistent with functionally nonsignificant (more content not included)...[facility] SouthComment on above:Result Comment: Electronically Signed By: Blanco Lazcano MD\.br\Date and Time Signed: 08/01/24 16:24 [id number] Evaluation + Plan noteExtracted from:Title: Procedure Note Heart & VascularAuthor:Blanco Lazcano MD DDate:08/01/24 Atrial fibrillation (I48.91: Unspecified atrial fibrillation) CAD (coronary artery disease) (I25.10: Atherosclerotic heart disease of jena coronary artery without angina pectoris) HLD (hyperlipidemia) (E78.5: Hyperlipidemia, unspecified) HTN (hypertension) (I10: Essential (primary) hypertension) Orders: acetaminophen, 325 mg = 1 tab(s), Tab, Oral, q6hr PRN Pain 1-3 for 24 hour(s), Stop date 08/02/24 10:41:00 EST, Routine, Start date 08/01/24 10:42:00 EST, 08/01/24 10:42:00 EST acetaminophen, 650 mg = 2 tab(s), Tab, Oral, q6hr PRN Pain 1-3 for 24 hour(s), Stop date 08/02/24 10:41:00 EST, Routine, Start date 08/01/24 10:42:00 EST, 08/01/24 10:42:00 EST acetaminophen-oxycodone, 2 tab(s), Tab, Oral, q4hr PRN Pain 4-7 for 5 day(s), Stop date 08/06/24 10:41:00 EST, Routine, Start date 08/01/24 10:42:00 EST aspirin, 324 mg = 4 tab(s), Tab-Chew, Chewed, Once, Stop date 08/01/24 7:00:00 EST, Routine, Start date 08/01/24 7:00:00 EST, Chew and swallow if not allergic morphine, 2 mg = 1 mL, Injection, IV Push, q6hr PRN Chest pain for 5 day(s), Stop date 08/06/24 10:41:00 EST, Routine, Start date 08/01/24 10:42:00 EST, 08/01/24 10:42:00 EST Basic Metabolic Panel Cardiac Diet Cardiac Rehab Assessment CBC w/ Indices CBC w/ Indices Circulation Check Communication Order Communication Order Communication Order Communication Order Communication Order Communication Order Communication Order Communication Order Communication Order Communication Order Communication Order Physician to Nursing Communication Order Physician to Nursing ECG 12 Lead Adult ECG 12 Lead Adult ECG 12 Lead Adult Follow Up Appointment Follow Up Appointment Magnesium Level Notify Provider Notify Provider Notify Provider Notify Provider Vital Signs Oxygen Protocol Patient Education Patient Education Site Check Troponin Up ad Berta Vital Signs Future Appointments Appointment Date:08/24/2024 02:45:00 PM Scheduled Provider:Jaleesa SOLIS, Blanco Montenegro Location:[facility] Appointment Type:Cardiology Follow Up ([facility]) Diagnostic Tests Pending * CBC w/ Indices 08/02/24 * Basic Metabolic Panel 08/02/24 * Magnesium Level 08/02/24 * Troponin 08/02/[address] [facility] 01-07-2025 Hospital Discharge instructions Patient Education 08/01/2024 11:18:38 CV - Cardiovascular PCI Discharge Instructions (CUSTOM) [place], [place] Cardiovascular PCI DISCHARGE INSTRUCTIONS Diet: Resume pre-procedure diet. Increase water intake the next 2 days to flush dye out of the body. Activity: If radial access: Limit your activity today. Do not operate a vehicle, machinery or power tools. NO LIFTING OVER 3 POUNDS for 3 days. Do not bend your wrist for 24 hours. May resume driving in 24 hours. Let pain/discomfort guide your activity. If you are having pain, stop. No sexual activity for 1 week. Return to the Emergency Room if you have trouble breathing, walking or nausea and vomiting. Medications: Resume pre-procedure medication, unless otherwise directed. Hold the following medications for 48 hours post procedure: Actoplus MetGlucophageGlucophage XR GlucovanceAvandametFortamet Jfk-jqcssmsokDyocafRnvs-xulsjtsnh GlumetzaJanumetMetaglip RiometGlycomet Minimal pain, soreness and/or discomfort is expected. If you are prescribed an aspirin and/or antiplatelet (such as Plavix, Brilinta or Effient) do NOT stop taking these medications for any reason without talking to your wool mixer Site Care: Do not remove dressing for 24 hours unless it becomes saturated, then replace. Keep site clean and dry; inspect site daily. Do not use any lotions, powders, or ointments at the groin or wrist site for 1 week. May shower 24 hours after the procedure. Clean site with soap and water. Pat dry and apply band aid. No tub baths, swimming or hot tubs for 3 days. Post Procedure: Soreness and tenderness to the site can last up to one week. Bruising may occur to site. A responsible adult should be with you for the first 24 hours after you arrive home. Keep follow-up appointment. Carry your stent card with you at all times. This provides information about your heart disease forany doctor who cares for you. No smoking for 24 hours as it increases the risk of developing blood clots. If you are interested in smoking cessation, contact [facility] at [phone], ext. [phone]. In the event you are unable to reach your physician, please call Richa at [phone] and the bread oven operator will assist you. Seek Medicare Care for: Bleeding: Apply continuous pressure to the site and Call 911. Should the arm or leg become cold, numb, blue or white call your physician immediately. Signs of infection are redness, warmth, swelling, getting more sore, colored drainage, fever or chills Chest pain Blood in your urine or stool Black tarry stools Follow Up Care 07/12/2024 12:07:06 With:Blanco Lazcano Address: [address] [place] [phone] Business (1) When:08/24/2024 14:45:[address] [facility] 11-28-2024 NoteEchocardiology Procedure Exam Date/Time Accession # Ordering Echo Transthoracic w/ 06/20/2024 15:19 EST [id number] Blanco Lazcano MD Contrast CPT code 34940 11345 Reason for Exam (Echo Transthoracic w/ Contrast) I25.10;Cardiomyopathy Report [address] [address] Adult Echocardiogram Report Name: ELICEO KENNY Study Date: 06/20/2024 02:24 PM BP: 139/88 mmHg Patient Location: [facility] Ambulatory(s) [facility] HR: 87 : 1965 Gender: Male Height: 66 in Age: 58 yrs Ethnicity: T Weight: 244 lb Reason For Study: Cardiomyopathy BSA: 2.2 m2 History: Smoker-Yes,CAD,CHF,Stents Ordering Physician: Jaleesa^Blanco^Moni Referring Physician: Blanco Lazcano Performed By: Kiah Carcamo, WYATT, RVT Interpretation Summary The left ventricle is mildly dilated. Mild left ventricular hypertrophy. Left ventricular ejection fraction is mild to moderately reduced. Ejection Fraction = 40%. There is mild to moderate global hypokinesis of the left ventricle. There is apical wall moderate hypokinesis Grade I diastolic dysfunction, (abnormal relaxation pattern). Procedure A complete two-dimensional transthoracic echocardiogram was performed using contrast (2D, M-mode, spectral and color flow Doppler). Left Ventricle The left ventricle is mildly dilated. mild left ventricular hypertrophy. Left ventricular ejection fraction is mild to moderately reduced. Ejection Fraction = 40%. There is mild to moderate global hypokinesis of the left ventricle. There Echocardiology Report is apical wall moderate hypokinesis. Grade I diastolic dysfunction, (abnormal relaxation pattern). Left Atrium The left atrial size is normal. NWV. Right Atrium The right atrium is grossly normal. Right Ventricle The right ventricular systolic function is normal. The right ventricle is normal size. Aortic Valve The aortic valve is not well visualized. No aortic regurgitation. There is no aortic stenosis. Mitral Valve The mitral valve is not well visualized. There is no mitral regurgitation noted. No mitral valve stenosis. Tricuspid Valve The tricuspid valve is grossly normal. There is trace tricuspid regurgitation. There was insufficient TR detected to calculate RV systolic pressure. No evidence of tricuspid stenosis. Pulmonic Valve NWV. There is no pulmonic valve regurgitation. No evidence of stenosis. Arteries The aortic root is normal in size. Normal ascending aorta. Venous The inferior vena cava is normal in size, and collapses normally with respiration. Effusion There is no pericardial effusion. MMode/2D Measurements & Calculations RVDd: 2.9 cm LVIDd: 5.9 cm FS: 22.9 % Ao root diam: 3.7 cm IVSd: 1.1 cm LVIDs: 4.5 cm EDV(Teich): 169.9 ml Ao root area: 11.0 cm2 LVPWd: 1.3 cm ESV(Teich): 92.9 ml LA dimension: 3.7 cm EF(Teich): 45.3 % asc Aorta Diam: 3.7 cm LVOT diam: 2.4 cm LVLd ap4: 9.3 cm EDV(MOD-sp2): 232.0 ml LVOT area: 4.6 cm2 EDV(MOD-sp4): 246.0 ml ESV(MOD-sp2): 124.0 ml LVLs ap4: 8.3 cm EF(MOD-sp2): 46.6 % ESV(MOD-sp4): 165.0 ml EF(MOD-sp4): 32.9 % SV(MOD-sp4): 81.0 ml TAPSE: 2.3 cm IVC Diam: 1.6 cm RA A4Cs_phl: 17.2 cm2 RVIDd/LVIDd: 0.50 EF (MOD-bp): 40.4 % Echocardiology Report LA Vol Index: 25.5 ml/m2 Doppler Measurements & Calculations MV E max janeen: 69.4 cm/sec MV dec time: 0.16 sec Ao V2 max: 109.0 cm/sec LV V1 max P.9 mmHg MV A max janeen: 71.1 cm/sec Ao max P.8 mmHg LV V1 mean P.0 mmHg MV E/A: 0.98 Ao V2 mean: 75.3 cm/sec LV V1 max: 85.3 cm/sec Lat Peak E' Janeen: 8.2 cm/sec Ao mean P.0 mmHg LV V1 mean: 55.3 cm/sec E/E' Lat: 8.5 Ao V2 VTI: 20.3 cm LV V1 VTI: 14.5 cm Med Peak E' Janeen: 4.9 cm/sec EMILIANO(I,D): 3.3 cm2 E/E' Med: 14.2 EMILIANO(V,D): 3.6 cm2 SV(LVOT): 67.4 ml TR max janeen: 199.7 cm/sec RAP systole: 3.0 mmHg AV VR: 0.78 TR max P.0 mmHg EMILIANO(VTI)/BSA_phl: 1.5 RVSP(TR): 19.0 mmHg FINAL REPORT Dictated: 06/20/2024 2:24 pm Blanco Lazcano MD Signed (Electronic Signature): 06/22/2024 10:24 am Signed by: Blanco Lazcano MD Transcribed by: DHAVAL Technologist: [facility]10-02-2024 History of Present illness Narrative* Misti Pardo, DO - 04/26/2024 11:15 AM EDT Images from the original note were not [...] MOUTH EVERY DAY FOR 90 DAYS HYDROcodone-acetaminophen ([place]) 5-325 MG tablet every 6 (six) hours. [...] by mouth at bedtime 30 tablet 5 Vqurpfiagwb-Xmamayabx-Hcajdp (Trelegy Ellipta) 200-62.5-25 MCG/ACT aerosol powder Inhale 1 puff Daily 1 each 5 No current facility-administered medications for this visit. Past Medical History: Diagnosis Date Abscess of sigmoid colon due to diverticulitis 01/17/2024 Angina pectoris ([facility]) Cardiogenic pulmonary edema ([facility]) 01/17/2024 Colostomy present ([facility]) COPD (chronic obstructive pulmonary disease) ([facility]) H/O ileostomy Heart failure ([facility]) History of stomach ulcers Hyponatremia 01/17/2024 Single subsegmental thrombotic pulmonary embolism without acute cor pulmonale ([facility]) 09/07/2019 Smoking 01/17/2024 Syncope 01/17/2024 [...] once daily and use albuterol as needed. Hemay benefit from pulmonary rehab in the future, however this time we will try the medication adjustments 1st. He does also likely have a role of sleep apnea that is playing into her symptoms as well.Patient states he does also have some anxiety that is playing a role in to his current symptoms of s hortness of breath as well. This does continue to be managed by his primary care physician's office. Hypersomnolence/possible sleep apnea -- at this time I do have concerns that he has a component OSAplaying a role in his symptoms as well. [...] he qualifies. The patient understands the plan andis agreeable. He will follow here in a few months time. Follow up in about 2 months (around 06/26/2024) for COPD, sleep study. Misti Pardo DO documented in this encounterHedrick Medical [id number] History of Present illness Narrative* Amber Cuellar DO - 01/12/2024 4:00 PM EDT Images from the original note were not included. SUBJECTIVE: HPI: Eliceo Kenny is a 58 y.o. male who presents with chief complaint of No chief complaint on file. Pt presents for his annual wellness visit. Pt notes that he is having an increase in SOB and fatigue. He also notes weakness as well. Pt has noticed an increase in his anxiety and panic attacks. No other concerns at this time. Depression: Not on file reports that he has quit smoking. His smoking use included cigarettes. He has never used smokeless tobacco. He reports that he does not drink alcohol and does not use drugs. OBJECTIVE: 09/29/2022 12:00 PM 01/12/2024 3:27 PM 01/17/2024 9:59 AM Vitals BMI 34.51 kg/m2 38.09 kg/m2 38.74 kg/m2 BSA (m2) 2.13 m2 2.23 m2 2.25 m2 Systolic 132 128 120 Diastolic 66 82 90 Heart Rate 101 90 SpO2 95 % 95 % Temp 96.5 F 97.9 F Height (in) 5' 6 5' 6 5' 6 Weight (lb) 213.8 236 240 Visit Report Report Report Physical Exam Constitutional: General: He is not in acute distress. Appearance: He is not ill-appearing. HENT: Head: Normocephalic. Cardiovascular: Rate and Rhythm: Normal rate and regular rhythm. Heart sounds: No murmur heard. Pulmonary: Effort: Pulmonary effort is normal. Breath sounds: Wheezing present. No rhonchi or rales. Abdominal: General: Abdomen is flat. There is no distension. Tenderness: There is no abdominal tenderness. Musculoskeletal: General: No deformity. Normal range of motion. Cervical back: Normal range of motion. Skin: General: Skin is warm and dry. Neurological: General: No focal deficit present. Mental Status: He is alert and oriented to person, place, and time. Psychiatric: Mood and Affect: Mood normal. Behavior: Behavior normal. Thought Content: Thought content normal. Judgment: Judgment normal. No results found for this or any previous visit (from the past 672 hour(s)). ASSESSMENT AND PLAN: Assessment/Plan Diagnoses and all orders for this visit: COPD with acute exacerbation ([facility]) - predniSONE (Deltasone) 20 MG tablet; Take 1 tablet (20 mg) by mouth 3 (three) times a day for 5 days, THEN 1 tablet (20 mg) 2 (two) times a day for 2 days, THEN 1 tablet (20 mg) Daily for 2 days. - XR chest 2 views; Future Treat for COPD exacerbation. Discussed diagnosis and treatment plan extensively including any medications prescribed (OTC and Rx). RTC prn, discussed appropriate follow up care. Patient Active Problem List Diagnosis Acquired hypothyroidism (CMS/HCC) Aphasia Coronary artery disease involving jena coronary artery of jena heart without angina pectoris (CMS/HCC) Generalized anxiety disorder (CMS/HCC) Hemiparesis of right dominant side as late effect of cerebrovascular disease (CMS/HCC) HFrEF (heart failure with reduced ejection fraction) (CMS/HCC) Mucopurulent chronic bronchitis (CMS/HCC) Nicotine dependence with nicotine-induced disorder Other hyperlipidemia (CMS/HCC) Other obesity due to excess calories Presence of colostomy (CMS/HCC) Primary hypertension (CMS/HCC) Abdominal wall fluid collections Acute embolism and thrombosis of unspecified deep veins of right lower extremity (CMS/HCC) Abdominal wall abscess Acute respiratory failure with hypoxia (CMS/HCC) Acute respiratory failure (CMS/HCC) COPD (chronic obstructive pulmonary disease) (CMS/HCC) COPD exacerbation (CMS/HCC) Cardiomyopathy, unspecified (CMS/HCC) Cerebral infarction, unspecified (CMS/HCC) Chronic systolic (congestive) heart failure (CMS/HCC) Cognitive communication deficit Difficulty in walking, not elsewhere classified Colitis Diverticulitis of intestine, part unspecified, with perforation and abscess without bleeding Diverticulitis of large intestine with perforation without bleeding Diverticulosis Dizziness, nonspecific History of pulmonary embolus (PE) History of tobacco abuse Hypotension due to drugs Ischemic cardiomyopathy (CMS/HCC) Lower GI bleed Muscle weakness (generalized) Oral thrush Other nonrheumatic mitral valve disorders Pneumonia, unspecified organism QT prolongation S/P colostomy takedown Shortness of breath Single subsegmental pulmonary embolism without acute cor pulmonale (CMS/HCC) Sleep apnea, unspecified Ventricular tachycardia (CMS/HCC) Afib (CMS/HCC) Anxiety Bronchospasm Status post non-ST elevation myocardial infarction (NSTEMI) (CMS/HCC) Status post partial resection of colon Ventricular bigeminy Respiratory failure with hypoxia (CMS/HCC) Past Medical History: Diagnosis Date Abscess of sigmoid colon due to diverticulitis 01/17/2024 Angina pectoris (CMS/HCC) Cardiogenic pulmonary edema (CMS/HCC) 01/17/2024 Colostomy present (CMS/HCC) COPD (chronic obstructive pulmonary disease) (CMS/HCC) H/O ileostomy Heart failure (CMS/HCC) History of stomach ulcers Hyponatremia 01/17/2024 Smoking 01/17/2024 Syncope 01/17/2024 documented in this encounterHedrick Medical [id number] Note* Addendum Note - John Collier MD - 01/02/2024 9:47 AM EDTAddended by: JOHN COLLIER on: 01/02/2024 09:47 AM Modules accepted: Orders [id number] Miscellaneous Notes* Addendum Note - John Colleir MD - 01/02/2024 9:47 AM EDTAddended by: JOHN COLLIER on: 01/02/2024 09:47 AM Modules accepted: Orders * Addendum Note - John Collier MD - 12/29/2023 12:25 PM EDTAddended by: JOHN COLLIER on: 12/29/2023 12:25 PM Modules accepted: Orders documented in this [id number] Note* Addendum Note - John Collier MD - 12/29/2023 12:25 PM EDTAddended by: JOHN COLLIER on: 12/29/2023 12:25 PM Modules accepted: Orders [id number] Note* Addendum Note - John Collier MD - 12/29/2023 12:25 PM EDTAddended by: JOHN COLLIER on: 12/29/2023 12:25 PM Modules accepted: Orders [id number] Note* Addendum Note - John Collier MD - 12/29/2023 12:25 PM EDTAddended by: JOHN COLLIER on: 12/29/2023 12:25 PM Modules accepted: Orders [id number] Miscellaneous Notes* Addendum Note - John Collier MD - 12/29/2023 12:25 PM EDTAddended by: JOHN COLLIER on: 12/29/2023 12:25 PM Modules accepted: Orders documented in this [id number] NoteS: patient has been doing well since his [...] from him. He has not seen his lang interpreter or his wool mixer in some time, but he will set up an appointment for medical risk stratification and optimization prior to going to our next clinic visit. Plan: We will follow up on operative risk stratification from his wool mixer and his lang interpreter We will schedule to see him in clinic in 1 month after these items are completed. We ask that he provide the fax number [phone] to his providers to send the pre op evaluation documents to our officeThe [facility]06[facility] History of Present illness Narrative* John Collier MD - 12/29/2023 11:57 AM EDT S: patient has been doing well since [...] from him. He has not seen his lang interpreter or his wool mixer in some time, but he will set up an appointment for medical risk stratification and optimization prior to going to our next clinic visit. Plan: We will follow up on operative risk stratification from his wool mixer and his lang interpreter We will schedule to see him in clinic in 1 month after these items are completed. We ask that he provide the fax number [phone] to his providers to send the pre op evaluation documents to our office documented in this [id number] History of Present illness Narrative* John Collier MD - 12/29/2023 11:57 AM EDT S: patient has been doing well since [...] from him. He has not seen his lang interpreter or his wool mixer in some time, but he will set up an appointment for medical risk stratification and optimization prior to going to our next clinic visit. Plan: We will follow up on operative risk stratification from his wool mixer and his lang interpreter We will schedule to see him in clinic in 1 month after these items are completed. We ask that he provide the fax number [phone] to his providers to send the pre op evaluation documents to our office documented in this [id number] Instructions* Patient Instructions* Vanessa Wilson MD - 08/17/2022 2:28 PM EST Please send records from Dr. Ocampo to [facility] after appointment this upcoming Wednesday. Attn: Vanessa Wilson MD Trauma, Emergency General Surgery, Burn, and Surgical Critical Care Obtaining information to determine cardiac risk for Elective ileostomy reversal, possible exploratory laparotomy, possible bowel resection. Not an emergent or urgent surgery. documented in this [id number] History of Present illness Narrative* Vanessa Wilson MD - 08/17/2022 2:23 PM EST Images from the original note were not included. Trauma/Acute Care Surgery Clinic Note Eliceo Kenny is a 56 year old male with a history of hypothyroidism, MA, CHF, COPD, CAD (s/p PCI on ASA/Plavix), hypertension, who has a history of perforated diverticulitis with feculent peritonitis s/p ex lap, sigmoidectomy, and end colostomy creation July [address] Juares. 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 He underwent emergent takedown of the colostomy with lysis of adhesions mobilization of the splenic flexure, colonoscopy, colorectal anastomosis with a diverting loop ileostomy on 10/12/[address] Lind. He was discharged in good condition on 10/20/20. He was seen in December 2020 to discuss possible reversal of ileostomy, and wasscheduled for surgery 04/21/2021, but had to cancel due to personal reasons. He then presented to the ED on 05/03/2021 with pain and swelling of the umbilicus. CT scan demonstrated abscess at umbilicusas well as stranding/inflammation intra-abdominally just inferior to the umbilicus. He underwent bedside I&D and drain placement on 05/03/2021 and was discharged home on 05/05/2021 with 3 more days of zyvox. He was seen in clinic on 05/13/2021 for a wound check which was healing well. He returned to ED from [place] for abdominal pain and drainage of midline wound. He underwent I&D on after CT showed abscess collection. He followed up for a wound check on 08/12/2021, and it was healing well. He was seen in clinic in December 2021 in follow up, and had been pending possible pacemakervs defibrillator. He presents today because he states he wants to touch base about his ostomy and ensure he remained an active patient in the clinic. Since last visit, he states he has been eating well and maintaining his weight. He has not had any additional issues with abscesses or infections at his umbilicus. He does state he recently had an admission to [facility] about 3 weeks prior for possible [...] reverse his ileostomy. He has seen his wool mixer and states he was told that having [...] Ostomy pink and patent with air and stoolin bag. Discussed that since his ostomy is [...] procedure. I will need records from his wool mixer, especially since he is potentially recommended for either a pacemaker or defibrillator, and I would like records from his lang interpreter (Dr. Sousa at [facility]) since he requires frequent use of his rescue inhaler and he often appears in the office audibly wheezing. He has not had any colonoscopy in any of the records I have visible at [facility], and he states if he ever had one, it would have been through [facility]. I would also like his recent records from his admission 3 weeks prior. Discussed that while reversing a diverting loop ileostomy could potentially be locally done around stoma site, he does have a parastomal hernia as well as a midline hernia, and given his multiple prior surgeriesand midline abscesses, he has the potential to need an exploratory laparotomy which would both be technically challenging and put him under more physiologic stress. He is already very high risk givenhis cardiac and pulmonary comorbidities. I explained I need more information before I can adequately baby counselor him on these risks and have an accurate discussion with him to determine if benefits outweigh substantial risks. I had him sign medical release forms to obtain records from [facility]. He states he has an appointment with cardiology this upcoming Wednesday, and I encouraged him to have them send his records during that visit. I provided the fax number and directions. Will plan for follow up on ce these have been obtained. Answered all question to the best of my ability. Vanessa Wilson MD documented in this [id number] Telephone encounter Note* Telephone Encounter - Corazon Khan - 08/06/2022 2:27 PM EST Pt was last seen in December 2021, pt would like to see Dr. Wilson for a follow- up he is experiencing some discomfort and would like the doctor to review things with him concerning his health 08/17/2022 at 2:45 pm [id number] Miscellaneous Notes* Telephone Encounter - Corazon Khan - 08/06/2022 2:27 PM EST Pt was last seen in December 2021, pt would like to see Dr. Wilson for a follow- up he is experiencing some discomfort and would like the doctor to review things with him concerning his health 08/17/2022 at 2:45 pm documented in this [id number] History of Present illness Narrative* Vanessa Wilson MD - 12/30/2021 4:19 PM EDT Images from the original note were not included. Trauma/Acute Care Surgery Clinic Note Eliceo Kenny is a 56 year old male with a history of hypothyroidism, MA, CHF, COPD, CAD (s/p PCI on ASA/Plavix), [...] 05/03/2021 with pain and swelling of the u mbilicus. CT scan demonstrated abscess at umbilicus as well as stranding/inflammation intra-abdominally just inferior to the umbilicus. He underwent bedside I&D and drain placement on 05/03/2021 and was discharged home on 05/05/2021 with 3 more days of zyvox. He was seen in clinic on 05/13/2021 for a wound check which was healing well. He returned to ED from [facility] for abdominal pain and drainage of midline wound. He underwent I&D on 07/[address] showed abscess collection. He followed up for a wound check on 08/12/2021, and it was healing well. He presents today to further discuss theileostomy. Since he was last seen, he has [...] chest pain. He does state that his wool mixer wants to evaluate him for defibrillator placement. [...] His vital signs on arrival are within usuallimits. Discussed that while I understand having an ostomy is not ideal, reversal is not urgent, and he is very high risk for any elective surgery given his baseline medical comorbidities. Recommended he continue to follow with his wool mixer and lang interpreter for management. I did also suggest that if he has any acute concerns about his abdomen that I recommend he try to go to the [facility] in [place] if he is able to get there instead of [facility] since myself and my partners rotate covering emergency general surgery call at [facility] 15/02. In the meantime, no scheduled follow up,but I did encourage him to keep in contact with any questions, concerns, or if clinically his comorbid conditions stabilize. Ensured he had contact information and instruction. Vanessa Wilson MD * Donna Rushing RN - 12/30/2021 11:49 AM EDT Patient was identified by name and date of . Donna Rushing RN, RN Patient at risk for falls:No Falls Risk protocol implemented: No documented in this [id number] Instructions* Patient Instructions* Vanessa Wilson MD - 12/30/2021 1:31 PM EDT If you are concerned about your ostomy (the bag) or about a new abscess or anything related to yourabdomen - come to the [facility] in [place] if you can, and ask for the [...] worsening) and you are very high risk tonot get off the ventilator easily. Keep in touch, and call for a follow up if you have questions or problems. I am Dr. Vanessa Wilson, I will take over documented in this [id number] Telephone encounter Note* Telephone Encounter - Jina Mclean - 12/19/2021 1:58 PM EDT Tried to reach patient about appt on that we needed to move to 6/ and I got his voicemail that was not set up I will try back [id number] Miscellaneous Notes* Telephone Encounter - Jina Mclean - 12/19/2021 1:58 PM EDT Tried to reach patient about appt on that we needed to move to 6/ and I got his voicemail that was not set up I will try back documented in this encounterMetroHealthEvaluation + Plan note No data available for this section [facility] Future Appointments Appointment Date:08/24/2024 02:45:00 PM Scheduled Provider:Jaleesa SOLIS, Blanco Montenegro Location:[facility].Cardiology Clinic Appointment Type:Cardiology Follow Up ([facility]) [facility] Evaluation + Plan note Future Appointments Appointment Date:08/24/2024 02:45:00 PM Scheduled Provider:Blanco Lazcano MD Location:[facility]Cardiology Clinic Appointment Type:Cardiology Follow Up ([facility]) Future Scheduled Tests Laboratory* B-Type Natriuretic Peptide 05/25/24 * Basic Metabolic Panel 05/25/24 * Lipid Panel 05/25/[address] [facility] evaluoemxi + Plan note Future Appointments Appointment Date:08/01/2024 09:00:00 AM Scheduled Provider: Location:[facility] Appointment Type:CV Heart Cath (FT) Appointment Date:08/24/2024 02:45:00 PM Scheduled Provider:Blanco Lazcano MD Location:[facility]Cardiology Clinic Appointment Type:Cardiology Follow Up (FT) Future Scheduled Tests Radiology* CV Cardiovascular 08/01/[address] [facility] evaluation + Plan note Future Appointments Appointment Date:09/21/2024 02:00:00 PM Scheduled Provider:Blanco Lazcano MD Location:[facility]Cardiology Clinic Appointment Type:Cardiology Follow Up ([facility]) [facility] evaluation + Plan note Future Appointments Appointment Date:02/07/2025 01:45:00 PM Scheduled Provider:Juan Francisco Johnson PA-C Location:[facility].Cardiology Clinic Appointment Type:Cardiology Follow Up ([facility]) [facility] evaluation note* Diagnosis Attention to ileostomy (HCC)- Primary Attention to ileostomy Body mass index (BMI) 35.0-35.9, adult documented in this encounter [facility]Evaluation noteNo assessment information availableSumma Health W[facility] Work Phone: evaluation note* Diagnosis Attention to ileostomy (HCC)- Primary [...] Hypersomnia, unspecified [facility]* Diagnosis COPD with acute exacerbation (CMS/HCC)- Primary COPD with acute exacerbation (CMS/HCC) documented [facility]* Diagnosis Chronic obstructive pulmonary disease, unspecified COPD type (HCC) documented [facility] this encounter [facility]* Diagnosis Chronic obstructive pulmonary disease, unspecified COPD type (HCC)- Primary Acquired hypothyroidism Unspecified hypothyroidism Impaired fasting blood sugar Impaired fasting glucose Primary hypertension Unspecified essential hypertension documented in this encounter [facility] HealthcareHistory of [...] exercise and weight loss were reviewed with him.[facility] [employer] [facility] DO Work Phone: History of Present illness [...] exercise and weight loss were reviewed with him.[facility] 250 DO Work Phone: History of Present illness [...] exercise and weight loss were also advocated. [place] [address] DO Work Phone: History of Present illness [...] for disease that could complicate his procedure. [facility] DO Work Phone: Hospital Discharge instructions No data available for this section [facility] note No data available for this section [facility] Summary Purpose Family History No Family [...] Records FoundLatest Code Status on File Code StatusDate ActivatedDate InactivatedCommentsFull Code05/04/2021 5:38 AM 05/05/2021 1:46 PMDocumentation of decision process for this code status: Discussed with patient or surrogate. This is the code status chosen by the patient/surrogate.Full Code11/12/2020 5:44 PM11/16/2020 2:58 PMFull Code10/12/2020 8:21 PM10/20/2020 4:00 PMFull Code10/10/2020 6:14 PM10/12/2020 8:21 PMDocumentation of decision process for this code status:Patient and surrogate unable or unavailable to discuss. There is no previous documentation of code status. Defaulting to Full CodeFull Code03/25/2020 4:14 AM03/26/2020 3:27 PM Advance Directive Response Recorded Date/ Time Advance Directives No May 28, 2018 3:14am Advance Directive Response Recorded Date/ Time Advance Directives No May 28, 2018 2:14am Date ActivatedDate JukwjvxgotcWjkejdud37/10/2021 5:38 AM05/05/2021 1:46 PM QuestionAnswerCommentsDocumentation of decision process for this code status:* Discussed with patient or surrogate. This is the code status chosen by the patient/surrogate. Date ActivatedDate InactivatedComments11/12/2020 5:44 PM11/16/2020 2:58 PMQuestion AnswerCommentsDocumentation of decision process for this code status:* Discussed with patient or surrogate. This is the code status chosen by the patient/surrogate. Date ActivatedDate InactivatedComments10/12/2020 8:21 PM10/20/2020 4:00 PMQuestion AnswerCommentsDocumentation of decision process for this code status:* Discussed with patient or surrogate. This is the code status chosen by the patient/surrogate. Date ActivatedDate InactivatedComments10/10/2020 6:14 PM10/12/2020 8:21 PMQuestion AnswerCommentsDocumentation of decision process for this code status:* Patient and surrogate unable or unavailable to discuss. There is no previous documentation of code status. Defaulting to Full Code Date ActivatedDate InactivatedComments03/25/2020 4:14 AM03/26/2020 3:27 PMQuestion AnswerCommentsDocumentation of decision process for this code status:* Discussed with patient or surrogate. This is the code status chosen by the patient/surrogate. Chief Complaint ELICEO KENNY is being seen for a 5 month follow-up of. [facility] Discharge [facility]/14[facility]2021[facility] is being seen for a 5 month follow-up of. [facility] Discharge 06/14/2021[facility] ZOYA is being seen for a 6 month follow-up of.ELICEO KENNY is being seen for a 6 month follow-up of. Chief Complaint and Reason for Visit Chief Complaint R41.3 G47.00 E03.9 I 10 F41.1 E66.9 I25.10 Chief Complaint R41.3 G47.00 E03.9 I 10 F41.1 E66.9 I25.10 g47.33 g47.10 g47.09 e66.9 f51.8 gasp/choke copd Reason for Referral SpecialtyDiagnoses / ProceduresReferred By ContactReferred To Contact Diagnoses Chronic obstructive pulmonary disease, unspecified COPD type ([facility]/HCC) Misti Pardo, [address] [place] [address] Referral IDStatusReasonStart DateExpiration DateVisits RequestedVisits [id number] Additional Source Comments (unrecognized sect ion and content) No Status Records FoundNo Status Records FoundNo Status Records FoundNo Status Records FoundNo Status Records FoundNo Status Records FoundNo Status Records FoundNo Status Records FoundNo Status Records FoundNo Status Records FoundNo Status Records FoundNo Status Records FoundNo Status Records FoundNo Status Records Found INFORMATION SOURCE (unrecogn ized section and content) DATE CREATED AUTHOR 10/23/2018 [facility] DATE CREATED AUTHOR AUTHOR'S ORGANIZ ATION 05/16/2022 [facility] DATE CREATED AUTHOR AUTHOR'S ORGANIZ ATION 07/28/2022 [facility] DATE CREATED AUTHOR AUTHOR'S ORGANIZ ATION 2022 [facility] DATE CREATED AUTHOR AUTHOR'S ORGANIZ ATION 2022 [employer] DATE CREATED AUTHOR AUTHOR'S ORGANIZ ATION 10/13/2022 [facility] DATE CREATED AUTHOR AUTHOR'S ORGANIZ ATION 03/11/2024 [facility] DATE CREATED AUTHOR AUTHOR'S ORGANIZ ATION 07/25/2024 [facility] DATE CREATED AUTHOR AUTHOR'S ORGANIZ ATION 08/05/2024 [facility] DATE CREATED AUTHOR AUTHOR'S ORGANIZ ATION 08/26/2024 [facility] DATE CREATED AUTHOR AUTHOR'S ORGANIZ ATION 03/09/2025 [facility] DATE CREATED AUTHOR AUTHOR'S ORGANIZ ATION 05/26/2025 [facility] Care Teams (unrecognized sec tion and content) Team MemberRelationshipSpecialtyStart DateEnd [place] [address] PCP - GeneralFamily Medicine03/28/20 Cee Leo LISW [address] [address] Social WorkerSocial Work04/30/20 Manjula Lind MD, PhD [address] [place] [address] PhysicianTrauma Yulcmaz00/1/21Team MemberRelationshipSpecialtyStart DateEnd Date Tawnya Pepper N [place] [id number] PCP - GeneralFamily Medicine03/28/[address] [address] Social WorkerSocial Work04/30/20 Manjula Lind MD, PhD [address] [place] [address] [place] [address] PhysicianTrauma Cmvglsc88/1/21 Team Status: Inactive Member Role Status Dates Carmine Jackson , Attending Provider Active Medhat Baltazar , DO RESReferring ProviderActive Team Status: Inactive Member Role Status Dates Medhat Baltazar , RES Attending Provider Active Team Status: Inactive Member Role Status Dates Medhat Baltazar , RES Referring Provider Active Carolyn Dugan , MDAttbucky ProviderActiveTeam MemberRelationshipSpecialty Start DateEnd Date Tawnya Pepper [address] [place] [address] PCP - GeneralFamily Medicine03/28/[address] [address] Social WorkerSocial Work04/30/20 Manjula Lind MD, PhD [address] [place] [address] [place] [address] PhysicianTrauma Yyhxsgt36/1/21Team MemberRelationshipSpecialtyStart DateEnd Date Tawnya Pepper [address] [place] [address] PCP - GeneralFamily Medicine03/28/[address] [address] Social WorkerSocial Work04/30/20 Manjula Lind MD, PhD [address] [place] [address] [place] [address] PhysicianTrauma Vuvcgja73/1/21Team MemberRelationshipSpecialtyStart DateEnd Date Tawnya Pepper [address] [place] [address] PCP - GeneralFamily Medicine03/28/[address] [address] Social WorkerSocial Work04/30/20 Manjula Lind MD, PhD [address] [place] [address] [place] [address] PhysicianTrauma Ltbyvjx06/1/21 Vanessa Wilson MD [address] [place] [address] [place] [address] PhysicianTrauma Surgery08/29/22Team MemberRelationshipSpecialtyStart DateEnd Date Tawnya Pepper [address] [place] [address] PCP - GeneralFamily Medicine03/28/[address] [address] Social WorkerSocial Work04/30/20 Manjula Lind MD, PhD [address] [place] [address] [place] [address] PhysicianTrauma Tboeqmk05/1/21 Vanessa Wilson MD [address] [place] [address] [place] [address] PhysicianTrauma Surgery08/29/22Team MemberRelationshipSpecialtyStart DateEnd Date [place], Amber L, DO [address] [place] [address] PCP - GeneralFamily Medicine12/01/22Team MemberRelationshipSpecialtyStart DateEnd Date Amber Cuellar, DO [address] [place] [address] PCP - Generalmi Medicine12/01/22Team MemberRelationshipSpecialtyStart DateEnd Date Amber Cuellar, DO [address] [place] [address] [facility] [place] [facility]/01/22Team MemberRelationshipSpecialtyStart DateEnd Date Amber Cuellar, DO [address] [place] [address] PCP - Generalmi Medicine12/01/22 Amber Cuellar, DO [address] [place] [address] PCP - [facility]10/24/2510Team MemberRelationshipSpecialtyStart DateEnd Date Amber Cuellar, DO [address] [place] [address] PCP - Generalmily Medicine12/01/22 Amber Cuellar, DO [address] [place] [address] PCP - [facility]10/24/2510Team MemberRelationshipSpecialtyStart DateEnd Date Amber Cuellar, DO [address] [place] [address] PCP - GeneralFamily Medicine12/01/22 Polo Amber Patricia, DO [address] [place] [address] PCP - [facility]10/24/2510Team MemberRelationshipSpecialtyStart DateEnd Date Amber Cuellar Patricia [address] [place] [address] PCP - Generalmily Medicine12/01/22 Polo Amber Gomez, DO [address] [place] [address] PCP - [facility] Goals (unrecognized section and content) Goals may [...] for Visit (unrecogniz ed section and content) ReasonCommentsNew patient, to establish relationshipPaitient is new to me, has seen dr. Wilson beforeReasonCommentsCOPDConsultationSpecialtyDiagnoses / ProceduresReferred By ContactReferred To ContactPulmonary Disease / Pulmonology Diagnoses COPD with acute exacerbation ([facility]) Procedures OR OFFICE/OUTPATIENT NEW HIGH MDM 60 MINUTES Amber Cuellar DO [address] [place] [address] Misti Pardo, DO [address] [place] [address] Referral IDStatusReasonStart DateExpiration DateVisits RequestedVisits [id number] Specialty Services Required [id number] RefillReasonCommentsAnnual Exam FOR RECORDS PERTAINING TO PATIENTS WHO ARE [...] BE BASED ON THE PRIMARY CLINICAL RECORDS. [facility] [employer] provides no warranty or guarantee of the accuracy or completeness of information in this document.
--- OUTSIDE RECORDS SUMMARY | 2025-06-10 15:46 | XMS_ITS | Clinical Summary ---
Author Organization [facility] Address [address] [place] [address] Phone Care Team Providers Care Business Agent Name Role Phone Unavailable Primary Care Provider Unavailabl e Social History Tobacco UseTypesPacks/DayYears UsedDateSmoking Tobacco: Never AssessedSex and Gender InformationValueDate RecordedSex Assigned at BirthNot on fileLegal Sex Male06/20/2022 6:29 AM ESTGender IdentityNot on fileSexual OrientationNot on file Last Filed Vital Signs Vital SignReadingTime TakenCommentsBlood Gwajlogo600/8608/19/2022 2:09 PM EST Aqcpk493008/19/2022 2:09 PM ESTTemperature--Respiratory Rate--Oxygen Saturation-- Inhaled Oxygen Concentration--Grlzwe18.5 kg (215 lb)2022 2:09 PM ESTHeight 167.6 cm (5' 6 )2022 2:09 PM ESTBody Mass Index34.7008/19/2022 2:09 PM EST Plan of Treatment Health MaintenanceDue DateLast DoneCommentsCT Upxclxhmokjn21/25/1967Colonoscopy 1966Colorectal Cancer Gmohixqno83/25/1967FIT-DNA (Cologuard)1966FIT 1966HIV Hjepebrgf03/25/1967Lipid Panel1966 3041Tudeegodtrgkv00/25/1967 Yearly Adult Kjmwlrti52/25/1967MMR Vaccines (1 of 1 - Standard series)1967 Diabetes Wnadkiyys43/25/1985Hepatitis C Bexaygqjt16/25/1985Hepatitis B Vaccines (1 of 3 - 19+ 3-dose series)1985DTaP/Tdap/Td Vaccines (1 - Tdap)1988 PSA Prostate Cancer Fcwjydorf13/25/2017Pneumococcal Vaccine (1 of 1 - PCV) 2016Zoster Vaccines (1 of 2)2016TS Level/ Influenza Vaccine (#1)501/07/2018COVID-19 Vaccine (1 - season) 2025HIB VaccinesAged OutNo longer eligible based on patient's age to complete this topicHPV VaccinesAged OutNo longer eligible based on patient's age to complete this topicHepatitis A VaccinesAged OutNo longer eligible based on patient's age to complete this topicIPV VaccinesAged OutNo longer eligible based on patient's age to complete this topicMeningococcal VaccineAged OutNo longer eligible based on patient's age to complete this topicRotavirus VaccinesAged Out No longer eligible based on patient's age to complete this topic Procedures Procedure NamePriorityDate/TimeAssociated YznzyafxgWdnyknwfZZEBviyose51/16/2021 9:52 AM EDT from Last 3 Months or Most Recently Relevant to Health Maintenance Results * (ABNORMAL) Thyroid Stimulating Hormone (01/08/2021 9:52 AM EDT)ComponentValue Ref RangeTest MethodAnalysis TimePerformed AtPathologist SignatureTSH8.79(H) 0.44 - 3.98 [facility] LABComment: TSH testing is performed using different testing methodology at [facility] than at other [facility]. Direct result comparisons should only be made within the same method. Specimen (Source)Anatomical Location / LateralityCollection Method / Volume Collection TimeReceived Time01/08/2021 9:52 AM EDT01/08/2021 5:49 PM EDT Narrative Authorizing ProviderResult TypeResult StatusWicarlos Ocampo MDLAB BLOOD ORDERABLESFinal ResultPerforming OrganizationAddressCity/State/ZIP CodePhone Number [facility] from Last 3 Months or Most Recently Relevant to Health Maintenance Insurance
--- OUTSIDE RECORDS SUMMARY | 2025-06-10 15:46 | XMS_ITS | Clinical Summary ---
Author Organization [facility] Address [address] [place] [address] Care Team Providers Care Coremaker Floor Name Role Phone Joe Cuellar DO Primary Care Provider [phone] PoloJoe DO Unavailable [phone] Allergies Active AllergyReactionsCriticalityNoted DateCommentsMorphineOther,Dizziness Kpsluh8011/19/2018 Agitation Penicillin RHvmvdekporxRzoc77/08/2023 Medications MedicationSigDispense QuantityRefillsLast FilledStart DateEnd DateStatus albuterol (2.5 MG/3ML) 0.083% nebulizer solution every 6 (six) hours.Active ASPIRIN 81 MG chewable tablet 1 (one) time each day at the same time.Active atorvastatin (Lipitor) 80 MG tablet TAKE 1 TABLET BY MOUTH EVERY DAY FOR 90 DAYSActive clopidogrel (Plavix) 75 MG tablet TAKE 1 TABLET BY MOUTH EVERY DAY FOR 90 DAYSActive furosemide (Lasix) 40 MG tablet TAKE 1 TABLET BY MOUTH EVERY DAY FOR 90 DAYSActive lisinopril 2.5 MG tablet TAKE 1 TABLET BY MOUTH EVERY DAY FOR 90 DAYSActive loperamide (Imodium) 2 MG capsule every 6 (six) hours.Active LORazepam (Ativan) 0.5 MG tablet 1 (one) time each day at the same time.Active KLOR-CON 20 MEQ ER tablet 1 (one) time each day at the same time.Active spironolactone (Aldactone) 25 MG tablet TAKE 1 TABLET BY MOUTH EVERY DAY FOR 90 DAYSActive albuterol HFA 90 mcg/act inhaler Indications:Chronic obstructive pulmonary disease, unspecified COPD type (HCC) INHALE 2 PUFFS EVERY 4 HOURS IF NEEDED FOR WHEEZING. 18 g 5Active amLODIPine (Norvasc) 5 MG tablet Take 5 mg by mouth DailyActive Toprol XL 100 MG 24 hr tablet Take 150 mg by mouth5Active tiotropium (Spiriva Respimat) 2.5 MCG/ACT inhaler Indications:Chronic obstructive pulmonary disease, unspecified COPD type (HCC) Inhale 2 puffs 1 (one) time each day at the same time 3 each 5Active budesonide-formoterol (Symbicort) 160-4.5 MCG/ACT inhaler Indications:Chronic obstructive pulmonary disease, unspecified COPD type (HCC) Inhale 2 puffs every 12 (twelve) hours 3 each 5Active levothyroxine (Synthroid, Levoxyl) 150 MCG tablet Indications:Acquired hypothyroidismTake 1 tablet (150 mcg) by mouth in the morning. Take before meals. 90 tablet 5Active traZODone (Desyrel) 50 MG tablet Indications:Insomnia, unspecified typeTAKE 1 TABLET BY MOUTH AT BEDTIME 30 tablet 5Active ondansetron ODT (Zofran-ODT) 4 MG disintegrating tablet Indications:Diverticulitis of intestine, part unspecified, with perforation and abscess without bleedingDISSOLVE 1 TABLET UNDER TONGUE ONCE A DAY AT THE SAME TIME EACH DAY 20 tablet 5Active ondansetron ODT (Zofran-ODT) 4 MG disintegrating tablet Indications:Diverticulitis of intestine, part unspecified, with perforation and abscess without bleedingDISSOLVE 1 TABLET UNDER TONGUE ONCE A DAY AT THE SAME TIME EACH DAY 20 tablet Discontinued traZODone (Desyrel) 50 MG tablet Indications:Insomnia, unspecified typeTAKE 1 TABLET BY MOUTH AT BEDTIME 30 tablet Discontinued Active Problems ProblemNoted DateDiagnosed DateAtherosclerosis of coronary artery without angina sviasexf04/13/3171Fkuk82/24/5445Bceqboo54/24/5910Hwduifbrzidy53/24/2024Status post non-ST elevation myocardial infarction (NSTEMI)01/17/2024Status post partial resection of colon01/17/2024Ventricular rajzpugn32/24/2024espiratory failure with ktgcegz3801/17/2024izziness, clctioyfzfx19/18/2024Hypotension due to drugs01/11/2024QT mbucewyniwfr71/18/2024cquired /08/2023phasia 12/31/2022oronary artery disease involving [place] coronary artery of [place] heart without angina rmysyqsu63/08/2023eneralized anxiety yoksgxui79/08/2023 Hemiparesis of right dominant side as late effect of cerebrovascular disease 12/31/2022HFrEF (heart failure with reduced ejection fraction)12/31/2022 Mucopurulent chronic otshrkzcyj86/08/2023Nicotine dependence with nicotine- induced rwquoqcl22/08/2023Other xsgvvuysoxqahd24/08/2023Other obesity due to excess ohdianyy08/08/2023resence of spcidtron60/08/2023rimary hypertension 12/31/2022bdominal wall fhyroek7205/04/2021/P colostomy pmkyofja28/11/2021OPD mfjjchgcbcce96/20/3643Msgsasaxaaambm75/31/2020History of pulmonary embolus (PE) 03/25/2020History of tobacco abuse03/25/2020Ischemic ocytnbqazlkdab26/31/2020 Lower GI bleed03/25/2020Oral qzoncn0403/25/20202936Ruisjfb46/12/2020Acute embolism and thrombosis of unspecified deep veins of right lower jrupfzvtt01/13/2020Acute respiratory failure with qhhdbja8609/07/2019Acute respiratory mhmovjr6509/07/2019 COPD (chronic obstructive pulmonary disease)09/07/2019Cardiomyopathy, gueroyecltv88/13/2020Cerebral infarction, bxdpccwisaz87/13/2020Chronic systolic (congestive) heart hbkibac8509/07/2019Cognitive communication qxmwisd3509/07/2019 Difficulty in walking, not elsewhere fdygeopaim47/13/2020Diverticulitis of intestine, part unspecified, with perforation and abscess without bleeding 09/07/2019Muscle weakness (generalized)09/07/2019Other nonrheumatic mitral valve jmzpoqwyg30/13/2020Pneumonia, unspecified yivecseb99/13/2020Shortness of breath 09/07/2019Single subsegmental pulmonary embolism without acute cor pulmonale 09/07/2019Sleep apnea, avcwipjcqdz56/13/2020Ventricular qauomhltorm46/13/2020 Abdominal wall fluid okrypvdflef12/24/2020Diverticulitis of large intestine with perforation without oidhdzzz66/28/2019 Resolved Problems ProblemNoted DateDiagnosed DateResolved DateBilateral carpal tunnel syndrome InsomniaMemory nmmogn0906/27/2024 06/27/2024NSTEMI (non-ST elevated myocardial infarction) Vitamin D hunablopau92Hypothyroidism Chronic combined systolic and diastolic congestive heart wfjgasg2906/27/2024 06/27/2024hronic obstructive pulmonary fpnmwbb30Vertigo Tobacco userObstructive sleep apnea Hx of non-ST elevation myocardial infarction (NSTEMI) bscess of sigmoid colon due to uviqngxqzgdshr80/24/2024 01/17/2024ardiogenic pulmonary edemaHyponatremia01/17/2024 01/17/20243939Khvhnln25SyncopeSingle subsegmental thrombotic pulmonary embolism without acute cor gwcirbcrg97/13/2020 04/25/2024 Encounters DateTypeDepartmentCare VswkZjjtqsaznto09/29/2025[facility] [address] [place] [address] Joe Cuellar, DO Diverticulitis of intestine, part unspecified, with perforation and abscess without sjauspvh91/18/2025Ref[facility] [address] [place] [phone] Joe Cuellar, DO Insomnia, unspecified type03/19/2025Refill [facility] [address] [place] [phone] Joe Cuellar, Insomnia, unspecified typefrom Last 3 Months Immunizations ImmunizationAdministration DatesNext DueInfluenza, High Dose Seasonal, Preservative Free04/02/2022Influenza, injectable, MDCK, preservative free, hagcqbnlkokn57/11/2019Influenza, injectable, quadrivalent, preservative free 07/24/2018Influenza, seasonal, bllfczfdwe52/01/2020Pneumococcal Polysaccharide BVVA6585 Family History Medical HistoryRelationNameCommentsThroat cancerMotherNo Known ProblemsSister3 - healthyRelationNameStatusCommentsFatherDeceasedMotherDeceasedSister Social History Tobacco UseTypesPacks/DayYears UsedDateSmoking Tobacco: FormerCigarettes Smokeless Tobacco: Never Tobacco Cessation:Counseling Given: Yes Alcohol UseStandard Drinks/WeekCommentsNever0 (1 standard drink = 0.6 oz pure alcohol)soda/pop 1-2 cups/dayPHQ-2AnswerDate RecordedPatient Health Questionnaire-2 Cxxyo824Sex and Gender InformationValueDate RecordedSex Assigned at BirthNot on fileLegal JwiQgpv8710/07/2022 8:32 PM EDTGender Identity Not on fileSexual OrientationNot on file Last Filed Vital Signs Vital SignReadingTime TakenCommentsBlood Heqbczvv895/7608 12:48 PM EDT Mbfuo40810/13/2025 12:48 PM TTRMlvyhboxvky18.3 ??C (97.4 ??F)03/07/2025 12:48 PM EDTRespiratory Rate--Oxygen Gmznuahaff66%03/07/2025 12:48 PM EDTInhaled Oxygen Concentration--Dzpcop768 kg (256 lb)03/07/2025 12:48 PM PVFWpzexr233.6 cm (5' 6 )03/07/2025 12:48 PM EDTBody Mass Index41.32003/07/2025 12:48 PM EDT Plan of Treatment DateTypeDepartmentCare Team (Latest Contact Info)Vcurcxwqkgt35/ 2:00 PM ESTOffice Visit [facility] [place] [facility] [address] [place] [phone] Joe Cuellar DO [address] [facility] [address] [place] [address] Health MaintenanceDue DateLast DoneCommentsPneumococcal Vaccine: Pediatrics (0 to 5 Years) and At-Risk Patients (6 to 64 Years) (2 of 2 - PCV)08/08/2020 08/08/2019COVID-19 Vaccine (1 - season)2025Influenza Vaccine (#1) , 04/02/2022, 08/26/2019, Additional history exists Insurance Care Teams Team MemberRelationshipSpecialtyStart DateEnd Date Joe Cuellar DO [address] [facility] [address] [place] [address] PCP - [facility]12/01/22 Joe Cuellar DO [address] [address] PCP - [facility]07/2510
--- OUTSIDE RECORDS SUMMARY | 2025-06-10 15:46 | XMS_ITS | Clinical Summary ---
Author Organization [facility] Address [address] [place] [address] Care Team Providers Care Industrial Chemist Name Role Phone Yvette PepperAraceli Primary Care Provider [phone] Cee Leo Unavailable Manjula Lind MD, PhD Unavailable [phone] Vanessa Wilson MD Unavailable [phone] Source Comments The following information is NOT included in Care Everywhere downloads:Psychiatric notes, ECG results, Cardiac Rehab notes, Pulmonary Function notes, data from [facility] (includes but not limited toPregnancy data,audiograms, eye exams, pre-surgical evaluation notes, well-child exam data).[facility] Allergies Active AllergyReactionsCriticalityNoted DateCommentsMorphineAgitationMedium 11/19/2018PenicillinsDifficulty KxjcwolgzAysx11/27/2019 Medications MedicationSigDispense QuantityRefillsLast FilledStart DateEnd DateStatus Ondansetron (ZOFRAN ODT ORAL) Take 4 mg by mouth 4 times daily as needed for Nausea.Active potassium chloride SA (K-DUR) 20 MEQ controlled release tablet Take 40 mEq by mouth daily.Active atorvastatin (LIPITOR) 80 MG tablet Take 80 mg by mouth at bedtime.Active LORazepam (ATIVAN) 0.5 MG tablet Take 0.5 mg by mouth daily as needed for Anxiety.Active Levothyroxine Sodium 112 MCG CAPS Take 112 mcg by mouth daily.Active aspirin 81 MG tablet Take 81 mg by mouth daily.Active CARvedilol (COREG) 6.25 MG tablet Take 6.25 mg by mouth 2 times daily.Active clopidogrel (PLAVIX) 75 MG tablet Take 75 mg by mouth daily.Active albuterol (PROVENTIL HFA) INHALATION HFA inhaler (VENTOLIN,PROAIR,PROVENTIL) 90mcg Inhale 2 Puffs by mouth every 6 hours as needed for Wheezing or Shortness of Breath.Active fluticasone (FLOVENT HFA) 110 MCG/ACT inhaler Inhale 1 Puff by mouth 2 times daily.Active acetaminophen (TYLENOL) 325 mg tablet Take 650 mg by mouth every 4 hours as needed for Pain or Fever.Active spironolactone (ALDACTONE) 25 MG tablet Take 25 mg by mouth daily.Active isosorbide mononitrate (MONOKET) 10 MG tablet Take 30 mg by mouth daily.Active Symbicort 160-4.5 MCG/ACT inhaler Inhale 2 Puffs by mouth 2 times daily.03/14/2020Active Pediatric Multivitamins-Iron (cerovite jr) CHEW oral chew tab Take 1 Tablet by mouth daily. 30 Tablet ctive gabapentin (NEURONTIN) 100 MG capsule Take 1 Capsule by mouth 3 times daily for 120 days. 90 Capsule ctive lidocaine (LIDODERM) 5 % patch Place 1 Patch on the skin every morning. 10 Patch ctive Tiotropium [place] Monohydrate (Spiriva Respimat) 2.5 MCG/ACT AERS 2 puffsActive naloxone 4 mg/0.1 mL nasal liquid Use 1 [place] in one nostril (alternate sides) as needed for Drug Overdose every 2-3 mins. until helparrives. 2 Each ctive levothyroxine (SYNTHROID) 112 MCG tablet Take 1 Tablet by mouth daily (with breakfast). 30 Tablet 10:21 AM EDT1ctive senna (SENOKOT) 8.6 MG tablet Take 1 Tablet by mouth at bedtime. 30 Tablet 05/05/2021 10:21 AM EDT1ctive loperamide (IMODIUM) 2 MG capsule Take 1 Capsule by mouth as needed (for liquid ostomy output). 60 Capsule ctive Active Problems ProblemNoted DateDiagnosed DateAbdominal wall fabowny3205/04/2021ttention to pwfqytpsn61/08/2021 Overview (04/02/2021): Added automatically from request for surgery [id number] S/P colostomy xgsojucb03/11/2021COPD kxskopnxktmq67/20/2021Lower GI bleed 03/25/2020Ischemic wiwydndeujqdfi81/31/2020HFrEF (heart failure with reduced ejection fraction)03/25/2020Acquired kgozshnhiwtipm40/31/2020Oral thrush 03/25/2020Essential riuehvolrnjs22/31/2020History of tobacco abuse03/25/2020 Zwbagldfnqccem91/31/2020Coronary artery disease due to calcified coronary lesion 03/25/2020History of pulmonary embolus (PE)03/25/2020Class 1 obesity due to excess calories with body mass index (BMI) of 33.0 to 33.9 in adult03/25/2020 COPD (chronic obstructive pulmonary disease)02/06/20204252Imknimh77/12/2020Abdominal wall fluid rawoziljnky29/24/2020Diverticulitis of large intestine with perforation without liaqusff36/28/2019Dizziness, nonspecificHypotension due to drugsQT prolongation Resolved Problems ProblemNoted DateDiagnosed DateResolved DateColostomy jjookgifm08/18/2021 12/03/2020 Overview (10/10/2020): Added automatically from request for surgery [id number] Colostomy pffgarxibcm29 Overview (06/14/2020): Added automatically from request for surgery [id number] Attention to grasbgptr22 Immunizations ImmunizationAdministration DatesNext BbyTqfjkis67/25/2021Influenza, Injectable, MDCK, Quadrivalent, Preservative Free (QPJ=685)07/05/2019Influenza, injectable, quadrivalent, preservative free (MIL=788)07/24/2018Influenza, injectable, trivalent, preservative (AGH=137)08/26/2019Pneumococcal polysaccharide 23 Valent (PPSV23) (CVX=33)08/08/2019 Social History Tobacco UseTypesPacks/DayYears UsedDateSmoking Tobacco: Light SmokerCigarettes2 35Smokeless Tobacco: Never Tobacco Cessation:Counseling Given: Yes Comments:Smokes approx three cigarettes a month when pt is stressed Sex and Gender InformationValueDate RecordedSex Assigned at BirthNot on file Legal NorZswd8011/19/2018 10:10 PM EDTGender IdentityNot on fileSexual Orientation Not on file Last Filed Vital Signs Vital SignReadingTime TakenCommentsBlood Rasixuhy730/63012/30/2021 11:50 AM EDT Viccy88547/07/2022 11:50 AM JUYQycmofvyjlp01.1 ??C (98.7 ??F)09/02/2021 2:12 PM ESTRespiratory Cctx882612/30/2021 11:50 AM EDTOxygen Htdnpfdnna60%07/30/2021 6:00 PM ESTInhaled Oxygen Concentration--Vvmpzg69.9 kg (218 lb)12/30/2021 11:50 AM RPCAikvzc272.6 cm (5' 6 )12/30/2021 11:50 AM EDTBody Mass Index35.19012/30/2021 11:50 AM EDT Plan of Treatment Health MaintenanceDue DateLast CzqiMenkwwvgMzapyomnito00/25/1967Ejection Bpspeqxi77/25/1967Tdap Kvfmbdw5508/19/1984Hepatitis A (HAV) Vaccine (optional start 19+ years)1985Hepatitis B (HBV) Vaccine (1 of 3 - 19+ 3-dose series) 1985CRC Atunsdsch03/25/2012Cologuard (Stool DNA)2011FIT2011 Shingles (RZV) Vaccine (1 of 2)2016Pneumococcal Vaccine(s) (50+ yrs) (2 of 2 - PCV)/2909ZBM86/31//Basic Metabolic Panel /11/2021, 05/05/2021, 05/03/2021, Additional history existsCOVID-19 Vaccine ( - 2024- season)2025Influenza Vaccine (#1)2025 08/26/2019, 07/05/2019, 07/24/20188680Ccacrienkfw13/28/09465709/22/2021HIV Test Nlqfgszdy01/27/2019Hepatitis C CsjyguunZohicgpmq15/20/2021 Procedures Procedure NamePriorityDate/TimeAssociated DiagnosisCommentsBASIC METABOLIC PANEL STAT07/30/2021 12:45 PM EST HEPATITIS C EAXBPFVBBNMG31/20/2021 2:08 PM EDT PJDWhvigys53/31/2020 4:18 AM EDT HIV1 HIV2 AGAB OIEMRIKE22/27/2019 10:21 PM EDT from Last 3 Months or Most Recently Relevant to Health Maintenance Results * (ABNORMAL) BASIC METABOLIC PANEL (07/30/2021 12:45 PM EST)ComponentValueRef RangeTest MethodAnalysis TimePerformed AtPathologist PojwhxqqpPiczygv55864 - 110 mg/dL07/30/2021 2:49 PM ESTS PATHOLOGY XYGUUQTKZTAitdgd931908 - 148 mmol/L07/30/2021 2:49 PM ESTS PATHOLOGY LABORATORYPotassium3.83.3 - 5.3 mmol/L07/30/2021 2:49 PM ESTS PATHOLOGY LABORATORYCarbon Lrzissu3734 - 30 mmol/L07/30/2021 2:49 PM ESTS PATHOLOGY QIHDLBLHJWGzkslnpx66645 - 111 mmol/L 07/30/2021 2:49 PM ESTS PATHOLOGY LABORATORYBlood Urea Nitrogen5(L)8 - 22 mg/dL07/30/2021 2:49 PM ESTS PATHOLOGY LABORATORYCreatinine0.69(L)0.80 - 1.30 mg/dL07/30/2021 2:49 PM ESTS PATHOLOGY LABORATORYCalcium8.78.4 - 10.4 mg/dL07/30/2021 2:49 PM ESTS PATHOLOGY LABORATORYAnion Wqr2500 - 20 07/30/2021 2:49 PM ESTS PATHOLOGY LABORATORYEstimated GFR (CKD-EPI)108>=60 mL/min/1.31pfg4107/30/2021 2:49 PM ESTS PATHOLOGY LABORATORYSpecimen (Source) Anatomical Location / LateralityCollection Method / VolumeCollection Time Received TimeBloodBLOOD SPECIMEN / Fehxlsg4607/30/2021 12:45 PM EST07/30/2021 2:05 PM EST Narrative Authorizing ProviderResult TypeResult StatusLisa Amanda MD98 GENERAL LAB Final ResultPerforming OrganizationAddWashington Health System Greenety/State/ZIP CodePhone Number [facility] [address] [place] [phone] * HEPATITIS C ANTIBODY (11/12/2020 2:08 PM EDT)ComponentValueRef RangeTest MethodAnalysis TimePerformed AtPathologist SignatureHepatitis C AbNonreactive Gzzwcbnkfcx59/20/2021 7:31 PM EDFAYETTE [facility] PATHOLOGY LABORATORYSpecimen (Source) Anatomical Location / LateralityCollection Method / VolumeCollection Time Received TimeBloodBLOOD SPECIMEN / Anjfqsc1611/12/2020 2:08 PM EDT11/12/2020 6:02 PM EDT Narrative Authorizing ProviderResult TypeResult StatusElikathie Zuniga MDEC HIV/HEP/SYPH TESTINGFinal ResultPerforming OrganizationAddressty/State/ZIP CodePhone Number [facility] [address] [place] [phone] * (ABNORMAL) TSH (03/25/2020 4:18 AM EDT)ComponentValueRef RangeTest Method Analysis TimePerformed AtPathologist SignatureTSH8.055(H)0.450 - 5.330 uIU/mL 03/25/2020 7:45 AM EDFAYETTE [facility] PATHOLOGY LABORATORYSpecimen (Source)Anatomical Location / LateralityCollection Method / VolumeCollection TimeReceived Time BloodBLOOD SPECIMEN / Znjrzaz8703/25/2020 4:18 AM EDT03/25/2020 7:02 AM EDT Narrative Authorizing ProviderResult TypeResult StatusTarik Atassi DO98 GENERAL LABFinal ResultPerforming OrganizationAddressty/State/ZIP CodePhone Number [facility] [address] [place] [phone] * HIV1 HIV2 AGAB SCRN (11/19/2018 10:21 PM EDT)ComponentValueRef RangeTest MethodAnalysis TimePerformed AtPathologist SignatureHIV Ag-Ab Screen Opy-BcivqygyYla-Lqyiybag15/ 1:21 AM [facility] PATHOLOGY LABORATORYComment: No HIV Infection. HIV - 1 UpCvk-JmogleokLrq-Dubzkvfp60/28/2019 1:21 AM [facility] HIV-1 p24 FiggtcoSsm-EfqjgaqaQkz-Zbamukvi95/28/2019 1:21 AM [facility] PATHOLOGY LABORATORYHIV-2 WaGgc-QuakdlefGuz-Wqjwoxzc91/28/2019 1:21 AM [facility] PATHOLOGY LABORATORYSpecimen (Source)Anatomical Location / LateralityCollection Method / VolumeCollection TimeReceived TimeBloodBLOOD SPECIMEN / Sihhcvt6711/19/2018 10:21 PM EDT11/19/2018 11:59 PM EDT Narrative [facility] - 11/20/2018 1:21 AM EDT HIV Information: ??[place] Rev. code 3701.243(E): This information has been disclosed to you from confidential records protected from disclosure by state law. ??You shall make no further disclosure of this information without the specific, written, and informed release of the individual to whom it pertains, or as otherwise permitted by state law. ??A general authorization for the release of medical or other information is not sufficient for the purpose of the release of HIV test results or diagnoses. Authorizing ProviderResult TypeResult StatusJevaldemar BETHEA HIV/HEP/SYPH TESTINGFinal ResultPerforming OrganizationAddressCity/State/ZIP CodePhone Number [facility] [address] [place] [phone] from Last 3 Months or Most Recently Relevant to Health Maintenance Insurance Advance Directives * Full Code (Latest Code Status on File) Date ActivatedDate IfoxahadpzvGyguemgf90/10/2021 5:38 AM05/05/2021 1:46 PM QuestionAnswerCommentsDocumentation of decision process for this code status:* Discussed with patient or surrogate.?? This is the code status chosen by the patient/surrogate. * Full Code Date ActivatedDate InactivatedComments11/12/2020 5:44 PM11/16/2020 2:58 PMQuestion AnswerCommentsDocumentation of decision process for this code status:* Discussed with patient or surrogate.?? This is the code status chosen by the patient/surrogate. * Full Code Date ActivatedDate InactivatedComments10/12/2020 8:21 PM10/20/2020 4:00 PMQuestion AnswerCommentsDocumentation of decision process for this code status:* Discussed with patient or surrogate.?? This is the code status chosen by the patient/surrogate. * Full Code Date ActivatedDate InactivatedComments10/10/2020 6:14 PM10/12/2020 8:21 PMQuestion AnswerCommentsDocumentation of decision process for this code status:* Patient and surrogate unable or unavailable to discuss.?? There is no previous documentation of code status.?? Defaulting to Full Code * Full Code Date ActivatedDate InactivatedComments03/25/2020 4:14 AM03/26/2020 3:27 PMQuestion AnswerCommentsDocumentation of decision process for this code status:* Discussed with patient or surrogate.?? This is the code status chosen by the patient/surrogate. Care Teams Team MemberRelationshipSpecialtyStart DateEnd Date Yvette Pepper [address] [place] [facility] [place] [address] PCP - GeneralFamily Medicine03/28/20 Cee Leo LISW [address] [address] Social WorkerSocial Work04/30/20 Manjula Lind MD, PhD [address] [facility] [place] [place] [address] PhysicianTrauma Gaaybgp20/1/21 Vanessa Wilson MD [address] [facility] [address] [place] [place] [address] PhysicianTrauma Surgery08/29/22
--- OUTSIDE RECORDS SUMMARY | 2025-06-10 15:46 | XMS_ITS | Clinical Summary ---
Author Organization [facility] Address [address] [place] [address] Care Team Providers Care Early Learning Teacher Name Role Phone Unavailable Primary Care Provider Unavailabl e Social History Tobacco UseTypesPacks/DayYears UsedDateSmoking Tobacco: Never AssessedSex and Gender InformationValueDate RecordedSex Assigned at BirthNot on fileLegal Sex Male01/22/2022 12:15 AM EDTGender IdentityNot on fileSexual OrientationNot on file Plan of Treatment Not on file
--- OUTSIDE RECORDS SUMMARY | 2025-06-10 15:47 | XMS_ITS | Patient Health Record ---
Author Organization [facility] es Address [address] [place] [address] Care Team Providers Care Public Health Teacher Name Role Phone sonyMarie Prado Primary Care Provider [phone] Allergies Allergen (clinical drug ingredient) Drug/Non Drug Allergy documented on EMR Reaction Allergy Type Onset Date Status morphine Morphine Sulfate dizziness Drug Allergy Activepenicillin GPenicillin G SodiumanaphylaxisDrug AllergyActive Reason For Referral No Information Medications Medication SIG (Take, Route, Frequency, Duration) Notes Start Date End Date Status Carvedilol 6.25 MG Tablet 1 tablet with food Ora lly Twice a day ActiveLidocaine 5 % Patch1 patch remove after 12 hours Externally Once a day ActiveCyclobenzaprine HCl 5 MG Tablet1 tablet Orally three times a day (tid) as needed (prn)ActiveFurosemide 40 MG Tablet1 tablet Orally Twice a dayActive Gabapentin 100 MG Capsule1 capsule Orally TIDActiveLisinopril 2.5 MG TabletTAKE 1 TABLET BY MOUTH EVERY DAYActiveSodium Chloride 0.9 % Nebulization Solutionas directed InhalationActiveSpironolactone 25 MG Tablet1 tablet Orally daily=Active Docusate Sodium 100 MG Capsule1 capsule as needed Orally BIDActiveAlbuterol Sulfate HFA 108 (90 Base) MCG/ACT Aerosol Solution2 puffs as needed Inhalation every 4-6 hrsActiveKlor-Con M20 20 MEQ Tablet Extended Release2 tablets Orally dailytakes once a dayActiveVitamin D (Cholecalciferol) 50 MCG (1999 UT) Capsule1 capsule Orally Once a day2ActiveOndansetron 4 MG Tablet Disintegrating1 tablet on the tongue and allow to dissolve Orally Once a dayActiveSpiriva Respimat 2.5 MCG/ACT Aerosol Solution2 puffs Inhalation Once a dayActive Loperamide HCl 2 MG Capsule1 capsule as needed Orally three times a day (tid) ActiveSymbicort 160-4.5 MCG/ACT Aerosol2 puffs Inhalation Twice a dayActive Atorvastatin Calcium 80 MG Tablet1 tablet orally once a dayActiveFlintstones Plus IronActiveLORazepam 0.5 MG Tablet1 tablet as needed Orally as needed (prn); Duration: 30 daysActiveClopidogrel Bisulfate 75 MG Tablet1 tablet Orally Once a dayActiveAspirin 81 MG Tablet Delayed Release1 tablet Orally Once a dayActive Levothyroxine Sodium 112 MCG Tablet2 tablets in the morning on an empty stomach Orally Once a day; Duration: 30 day(s)Active Social History Tobacco Use: Social History Observation Description Date Details (start date - stop date) Current Smoker 07/26/1979 - NA Sex Assigned At : Social History Observation Description Sex Assigned At Male Social History GeneralSocial InfoQuestionAnswerNotesTransition of Care:ER/UC/hospital since last office visit?NoSpecialist seen since last office visit?NoDepression Screening (PHQ-9):Little interest or pleasure in doing thingsNot at allFeeling down, depressed, or hopelessNot at allTrouble falling or staying asleep, or sleeping too muchMore than half the daysFeeling tired or having little energy More than half the daysPoor appetite or overeatingNot at allFeeling bad about yourself-or that you are a failure or have let yourself or your family downNot at allTrouble concentrating on things, such as reading the newspaper or watching televisionMore than half the daysMoving or speaking so slowly that other people could have noticed. Or the opposite being so fidgetyor restless that you have been moving around a lot more than usualNot at allThoughts that you would be better off , or of hurting yourself in some wayNot at allTotal Score6 IntepretationMild DepressionSubstance abuse/mental health issues of patient/familyPatient -Stress/AnxietyAbility to understand healthcare/treatment Patient:Ruben Screen:Are you a:current smokerWhen did you start smoking 07/26/1979? How often do you smoke cigarettes?every day? How many cigarettes a day do you smoke?5 or less? How soon after you wake up do you smoke your first cigarette?6-30 min? Are you interested in quitting?Not ready to quitSexual Hx: Had sex in the last 12 months (vaginal, oral, or anal)?NoSocial/Support Concerns:Patient:NoAlcohol Screening:Did you have a drink containing alcohol in the past year?Yes? How often did you have a drink containing alcohol in the past year?Monthly or less (1 point)? How many drinks did you have on a typical day when you were drinking in the past year?1 or 2 (0 points)? How often did you have six or more drinks on one occasion in the past year?Less than monthly (1 point)Ppgmoz9EeacoszkjyjuzvQsaedfzxSuqlulbgo affecting healthPoor/Risky Behaviors:Physical Activity-Communication Barrier:Language Barrier?:No Problems Problem Type SNOMED Code ICD Code Onset Dates Problem Status W/U Status Risk Notes Problem Generalized anxiety disorder (72320043) Generalized anxiety disorder (F41.1) ActiveconfirmedProblemVitamin D deficiency (69930105)Vitamin D deficiency (E55.9)ActiveconfirmedProblemAnxiety (55638640)Anxiety (F41.9)Activeconfirmed ProblemDiverticulitis (34771476)Diverticulitis (K57.92)ActiveconfirmedProblem Essential hypertension (04906447)Essential hypertension (I10)Activeconfirmed ProblemVertigo (065220117)Vertigo (R42)ActiveconfirmedProblemObese class I (finding) (857053282731293)Obesity (BMI 30.0-34.9) (E66.9)ActiveconfirmedProblem Obstructive sleep apnea (45108542)Obstructive sleep apnea (G47.33)Active confirmedProblemCOPD - Chronic obstructive pulmonary disease (93329808)Chronic obstructive pulmonary disease, unspecified COPD type (J44.9)Activeconfirmed ProblemAmnesia (33115572)Memory change (R41.3)ActiveconfirmedProblem Hypothyroidism (71477748)Hypothyroidism, unspecified type (E03.9)Activeconfirmed ProblemInsomnia (571899137)Insomnia, unspecified type (G47.00)Activeconfirmed ProblemAcute non-ST segment elevation myocardial infarction (646033844)NSTEMI (non-ST elevated myocardial infarction) (I21.4)ActiveconfirmedProblemBilateral carpal tunnel syndrome (22519716148011512)Bilateral carpal tunnel syndrome (G56.03)ActiveconfirmedProblemAtherosclerotic heart disease of [place] coronary artery without angina pectoris (275526388861475)Coronary artery disease involving [place] coronary artery of [place] heart without angina pectoris (I2 5.10)ActiveconfirmedProblemChronic combined systolic and diastolic heart failure (194685287471337)Chronic combined systolic and diastolic congestive heart failure (I50.42)ActiveconfirmedProblemOld myocardial infarction (9179013)Hx of non-ST elevation myocardial infarction (NSTEMI) (I25.2)Activeconfirmed Plan Of Treatment No Information Insurance Providers Payer Name Payer Address Payer Phone Subscriber Number Group Number Insured Name Patient Relationship to Insured Coverage Start Date Coverage End Date [employer] [address] [place] [address] [id number] BO KENNY Self - patient is the insured 8 3 zMEDICAID ABD after [employer] [address] [place] [address] [id number] BO KENNY Self - patient is the insured 8 3 Medical (General) History Medical History History ICD Code Respiratory failure, unspecified with hy poxia J96.91 Left ventricular failure, unspecified I5 0.1 Ventricular tachycardia I47.2 Non-ST elevation (NSTEMI) myocardial inf arction I21.4 Impaired mobility and ADLs Z74.09 Essential hypertension I10 Hyperlipemia E78.5 Anxiety disorder, unspecified F41.9 diverticulitis Surgical History Surgery Date(Month/Year) Left ankle repair with pins/plate 2011 APPENDECTOMY 1976 colostomy bag 2019 stent placement 05/2018 Colostomy reversed 09/2020 Hospitalization History Reason Date(Month/Year) [facility] 09/2020 [facility]- Vertigo 09-01-2020 Bronchitis 06/2019 diverticulitis x2
[2025-06-10 15:56] LABS: Hematocrit 46.3 % (42.0-54.0); Hemoglobin 15.8 g/dL (14.0-18.0); Immature Granulocytes Abs Auto 0.04 10^3/uL (0.00-0.03); Immature Granulocytes Pct Auto 0.3 % (0.0-0.5); Lymphocytes Absolute Auto 1.0 10^3/uL (1.2-3.8); Mean Corpuscular HGB Conc 34.1 g/dL (29.9-35.2); Mean Corpuscular Hemoglobin 33.3 pg (25.9-34.0); Mean Corpuscular Volume 97.5 fL (80.0-94.0); Platelet Count 212 10^3/uL (150-450); Red Blood Count 4.75 10^6/uL (4.70-6.10); White Blood Count 13.0 10^3/uL (4.0-11.0)
[2025-06-10 16:11] LABS: SARS-CoV-2 Ag NEGATIVE (NEGATIVE)
[2025-06-10 16:12] LABS: Lactate/Lactic Acid 1.7 mmol/L (0.4-2.0)
[2025-06-10 16:17] LABS: Anion Gap 19.9; Blood Urea Nitrogen 32.0 mg/dL (7.0-18.0); Calcium 9.6 mg/dL (8.5-10.1); Carbon Dioxide 21.2 mmol/L (21.0-32.0); Chloride 102 mmol/L (98-107); Estimated GFR (African America 22 (>=60 mL/min/1.73m^2); Estimated GFR (Non-African Ame 18 (>=60 mL/min/1.73m^2); Glucose 135 mg/dL (74-106); NT Pro B Type Natriuretic Pept 112.0 pg/mL (<=900.0); Potassium 4.1 mmol/L (3.5-5.1); Sodium 139 mmol/L (136-145)
--- NOTE | 2025-06-10 16:47 | US_ITS ---
The [address] [address] Patient Name: BO KENNY MRN: [id number] date: 1965 Sex: M Assigned Patient Location: ED.MAIN Current Patient Location: [place] Accession/Order Number: [id number] Exam Date: 06/10/2025 17:15 Report Date: 06/10/2025 18:11 At the request of: KEVYN FAY Procedure: US renal BI Bilateral Renal Ultrasound HISTORY: Elevated creatinine COMPARISON: None RIGHT kidney measures 10.9 cm. LEFT kidney measures 12.6 cm. Hydronephrosis: None RENAL STONE: No shadowing renal calculus is seen. RENAL LESIONS: No renal lesion identified. URINARY BLADDER: Unremarkable REPRODUCTIVE STRUCTURES Not assessed IMPRESSION : No hydronephrosis. Impression dictated by: Los Martinez M.D. 06/10/2025 6:11 PM Dictation Location: [place] [address] Electronically authenticated by: [id number] Y Date: 06/10/2025 18:11
[2025-06-10] MEDS: METHYLPREDNISOLONE SOD SUCC PF 125 MG/2 ML VIAL IVP (16:50)
[2025-06-10] MEDS: IPRATROPIUM/ALBUTEROL SULFATE 3 ML AMPUL.NEB IH ×2 (16:58→20:58)
--- NOTE | 2025-06-10 17:39 | PM.HP ---
HPI H&P: HPI History of Present Illness Chief complaint: ANASTASIYA, intractable vomiting. Narrative: This is a 59-year-old man who came to the urgency room today primarily because he was having a lot of shortness of breath. In the emergency room he was found to have tachycardia consistent with atrial fibrillation with rapid ventricular response. He had vomiting. He was given a liter of IV fluids. His tachycardia did improve. He was not given nebulizer treatments in an effort to avoid retriggering tachycardia. He did convert to normal sinus rhythm in the emergency room. He has not been able to eat or drink anything in 2 days. On diagnostic testing his white blood count is high at 13. A chest x-ray did not show any pneumonia. But creatinine is risen from 1.13 up to 3.54. His troponin is normal at 10.4. The patient says that he has a history of atrial fibrillation. He is not on anticoagulation. He is on rate control with Toprol 150 mg daily. He was trying to take his medications while he has been sick through this episode but thinks that he vomited up his medications this morning. I rebound tachycardia might be from missed Toprol this morning. He sees cardiology out of [place] after his insurance would not allow him to see Dr. Ocampo up in [place]. He does have a history of COPD which gets exacerbated a few times a year. His medical record lists heart failure with preserved ejection fraction, but we do not have any echocardiograms here to know this for sure. He also follows with pulmonology with Dr. Pardo. He has an ileostomy. He said that he had to have the ileostomy because of perforated diverticulitis. He was treated at a hospital in [place]. He cannot remember if this was [facility] or if it was [facility]. There was some count of problem with the ostomy on the left side of his abdomen so that was removed and the ileostomy was placed in the right side of his abdomen. In the emergency room bladder scanning was not able to tell what volume of urine his bladder had because he has so much scar tissue. However, on a Wednesday night, the fire technology instructor was in the emergency room to do another patient and so she did do an ultrasound, while I was in the room, of both kidneys and the bladder. His bladder only has about 100 mL of urine in it. It is easily compressible. His kidneys look to be normal and do not have any gross hydroureter or hydronephrosis. I do think I see a handful of cysts in the renal cortex but that is likely a chronic problem. All of his symptoms came on really strongly just within the last 24 hours. He suddenly felt very bad. He had the nausea very bad. He did not start vomiting until today. He had the cough. His cough is much worse than normal. And he did have fevers and chills. He does smoke, about 2 or 3 cigarettes on days that he is anxious he tells me. He only drinks rarely on holidays like january. He wants to get his colostomy reversed but the surgeons were worried about his heart and his breathing, to make sure that he would be safe for anesthesia. He had coronary stents placed a few years ago, and then more recently in July of this year. Opioid HPI Opioid Management Most Recent Pain and Opioid Data: Last Pain Scale 2 06/04/24, 12:00 Last ORT Total Score 3 06/02/24, 16:51 Last ORT Risk Category Low Risk 06/02/24, 16:51 Review of Systems ROS Narrative 10 point review of systems is negative except as mention above in the history present illness. [facility] Medical History Diverticulitis large intestine w/o perforation or abscess w/bleeding ?K57.33 - Diverticulitis of large intestine without perforation or abscess with bleeding (ICD-10) Hypoxia ?R09.02 - Hypoxemia (ICD-10) COVID ?U07.1 - COVID-19 (ICD-10) Acute on chronic respiratory failure with hypoxia ?J96.21 - Acute and chronic respiratory failure with hypoxia (ICD-10) Acute exacerbation of chronic obstructive pulmonary disease ?J44.1 - Chronic obstructive pulmonary disease with (acute) exacerbation (ICD-10) Morbid obesity ?E66.01 - Morbid (severe) obesity due to excess calories (ICD-10) Current smoker ?F17.200 - Nicotine dependence, unspecified, uncomplicated (ICD-10) HLD (hyperlipidemia) ?E78.5 - Hyperlipidemia, unspecified (ICD-10) (HFpEF) heart failure with preserved ejection fraction ?I50.30 - Unspecified diastolic (congestive) heart failure (ICD-10) HTN (hypertension) ?I10 - Essential (primary) hypertension (ICD-10) CAD (coronary artery disease) ?I25.10 - Atherosclerotic heart disease of [place] coronary artery without angina pectoris (ICD-10) Surgical History History of ankle surgery ?Z98.890 - Other specified postprocedural states (ICD-10) Hx of appendectomy ?Z90.49 - Acquired absence of other specified parts of digestive tract (ICD-10) Hx of colostomy H/O heart artery stent ?Z95.5 - Presence of coronary angioplasty implant and graft (ICD-10) Family History Nephew No problems noted. Mother Family history of COPD (chronic obstructive pulmonary disease) Family history of cancer Family history of hypertension Family history of stroke Social History (Updated 06/02/24 @ 16:50 by Yudy James) Within the past year, how often did you have a drink containing alcohol: monthly or less Within the past year, how often did you have six or more drinks on one occasion: less than monthly Smoking status: Former smoker Second hand tobacco smoke exposure: No Non-prescribed substance use: denies use Previous occupational history: retired Highest level of school completed/degree received: GED or equivalent Little interest or pleasure in doing things: not at all Feeling down, depressed, or hopeless: not at all Feel stressed/tense/nervous/anxious/difficulty sleeping: not at all Do you think of yourself as: straight/heterosexual Gender Identity: male Meds Home Medications and Allergies Home Medications ?Medication ?Instructions ?Recorded ?Confirmed ?Type aspirin 81 mg capsule 81 mg PO DAILY 05/01/24 06/10/25 History atorvastatin 80 mg tablet 80 mg PO DAILY 05/01/24 06/10/25 History clopidogrel 75 mg tablet 75 mg PO DAILY 05/01/24 06/10/25 History furosemide 40 mg tablet 40 mg PO DAILY 05/01/24 06/10/25 History levothyroxine 200 mcg tablet 200 mcg PO DAILY 05/01/24 06/10/25 History (Euthyrox) lisinopril 2.5 mg tablet 2.5 mg PO DAILY 05/01/24 06/10/25 History spironolactone 25 mg tablet 25 mg PO QDAY 05/01/24 06/10/25 History (Aldactone) albuterol sulfate 90 mcg/actuation 2 inh inhalation Q4H PRN shortness 05/02/24 06/10/25 History breath activated powder inhaler of breath amlodipine 5 mg tablet 5 mg PO QDAY 06/10/25 06/10/25 History budesonide-formoterol HFA 160 2 inh inhalation Q12H 06/10/25 06/10/25 History mcg-4.5 mcg/actuation aerosol inhaler (Symbicort) ezetimibe 10 mg tablet 10 mg PO QDAY 06/10/25 06/10/25 History metoprolol succinate 100 mg 150 mg PO QDAY 06/10/25 06/10/25 History tablet,extended release 24 hr ondansetron 4 mg disintegrating 4 mg translingual QDAY 06/10/25 06/10/25 History tablet tiotropium bromide 2.5 2 puff inhalation Q24H 06/10/25 06/10/25 History mcg/actuation mist for inhalation (Spiriva Respimat) trazodone 50 mg tablet 50 mg PO .qhs 06/10/25 06/10/25 History Allergies Allergy/AdvReac Type Severity Reaction Status Date / Time Penicillins Allergy Anaphylaxis Verified 06/10/25 15:04 Exam Narrative Exam Narrative: Seen in ER bay #1, while the fire technology instructor is doing the bilateral renal ultrasound in his bladder, the patient does have a lot of cough. He cannot fully expectorate mucus. This coughing makes it uncomfortable for him to lie down flat. He has some low back pain which is occurring with his cough so he has some muscle spasms exacerbated by frequent coughing. Listening to the way his breathing pattern is I do wonder if he has some tracheal stenosis, and possibly some vocal cord dysfunction. Eyes: EOMI. PERRLA. No scleral injection. Mouth: Mucosal membranes are dry. Tongue is midline. No thrush. Neck: No jugular venous distention. No lymphadenopathy is palpable. Skin: Warm and dry. Very dehydrated appearing skin however. Neurologic: Awake and alert and conversant to the interview. Psychiatric he does get anxious with the increased work of breathing but he is redirectable. Pulmonary: Coarse breath sounds throughout. Lots of rhonchorous breath sounds throughout does have a harsh cough. Lots of mucus but cannot really fully expectorate it. No focal areas of wheezing. No focal areas of crackles. Cardiac: Sinus tachycardia on the monitor about 105 bpm. No murmurs auscultation. GI: Bowel sounds are somewhat hypoactive, as expected. Ileostomy is only draining a tiny amount of brown fluid, suggesting that he is really very dehydrated. Abdomen is soft and nontender to palpation throughout. No peritoneal signs. Lower extremities: No pitting edema in his legs at all. I got a watch as the fire technology instructor did the bilateral renal ultrasound and a quick check of his bladder. The kidneys appear to be normal. I think there are a handful of 1 cm cysts on both kidneys. No hydronephrosis. No hydroureter. His bladder had about 100 mL of urine on it and was easily compressible. Constitutional Vital Signs, click to edit/add: Last Vital Signs Temp 99.1 F 06/10/25 15:04 Pulse 101 H 06/10/25 17:25 Resp 22 H 06/10/25 17:00 BP 115/72 06/10/25 17:25 Pulse Ox 96 06/10/25 17:00 O2 Del Method Room Air 06/10/25 17:00 Results Labs Labs: Short CBC 06/10/25 Range/Units 15:20 WBC 13.0 H (4.0-11.0) 10^3/uL Hgb 15.8 (14.0-18.0) g/dL Hct 46.3 (42.0-54.0) % Plt Count 212 (150-450) 10^3/uL BMP 06/10/25 15:20 Sodium 139 Potassium 4.1 Chloride 102 Carbon Dioxide 21.2 BUN 32.0 H Creatinine 3.54 H Glucose 135 H Calcium 9.6 Assessment and Plan Assessment and Plan (1) Acute kidney injury: (2) Dehydration: (3) Acute bacterial bronchitis: (4) COPD with acute exacerbation: (5) Intractable vomiting: (6) Atrial fibrillation with rapid ventricular response: (7) Ileostomy in place: (8) ASHD (arteriosclerotic heart disease): (9) Heart failure with preserved ejection fraction (HFpEF): Plan Assessment: Acute kidney injury, due to: Severe clinical dehydration: Due to Intractable nausea vomiting over the last 2 days, due to: Acute bacterial bronchitis, causing: Acute exacerbation of chronic obstructive pulmonary disease. Brief run of tachycardia in the emergency room, which did convert to normal sinus rhythm. This may be consistent with A-fib with RVR. Fortunately the patient has a low CHADS2 DS VASc score so he does not require anticoagulation. Patient reports stent placed back in July of this year so aspirin and Plavix are the most important antiplatelet medications for him. Because of his ileostomy I suspect that he runs very dehydrated to baseline and then this acute kidney injury is a much more significant insult. COPD at baseline. Given all of the above I think that he will require at least 48 hours of time in the hospital with IV fluids to make sure that his kidney function returns and with IV antibiotics, nebulizer treatments, and medium dose IV corticosteroids to make sure his COPD becomes stabilized. Originally the emergency room was going to put him in just overnight for observation to hydrate him up but I suspect that he will not improve in 24 hours and therefore inpatient status is appropriate from the start. Plan: Hospital admission, with inpatient status. Hydrate overnight with hypotonic fluids with D5 half-normal saline. IV doxycycline 100 mg IV twice daily. IV Zithromax 500 mg IV daily. IV Compazine as needed for nausea vomiting. Protonix IV to reduce gastritis and esophagitis. Continuous telemetry monitoring. IV Lopressor 5 mg every 4 hours as needed's heart rate greater than 100. Hopefully can begin to reintroduce Toprol tomorrow if his blood pressures are good enough. Given the acute kidney injury hold lisinopril 2.5 mg daily. Given acute kidney injury hold spironolactone. Request sputum culture. DuoNebs scheduled 4 times a day. Strict inputs and outputs. Daily labs with BMP and CBC to ensure resolution of leukocytosis and improvement of creatinine. I advised the patient that he should focus on having liquid food tonight, and then if his vomiting is improving then he can advance to a heart healthy diet. DVT prophylaxis with heparin 5000 units subcutaneously every 12 hours. Care for this patient will be assumed by Dr. Martinez, who will be rounding on the patient in the morning.
--- OUTSIDE RECORDS SUMMARY | 2025-06-10 17:50 | XMS_ITS | CCD ---
Author Organization [facility] Informat ion Partnership [facility] Care Team Providers Care Developer Evangelist Name Role Phone PATY GUERRA Attending Unavailable NONE Primary Care Unavailable AARON OCAMPO Attending Unavailable NONE Primary Care Unavailable None, No PCP Unavailable Unavailable Unavailable Unavailable Unknown, Referring Provider Unavailable Unav ailable Tawnya Pepper Primary Care Provider Cee Whittaker Unavailable [phone] Diogo SOLIS, PhD, Manjula Putnam Unavailable [phone] DO Carmine Jackson Attending Provider [phone] DO Medhat Baltazar Referring Provider Dr. Aaron Ocampo II Attending Unavaila lory MOY Dr. PCP Primary Care Unavailable DO Carmine Jackson Attending Provider [phone] DO Medhat Baltazar Referring Provider DO Medhat Baltazar Referring Provider MD Carolyn Dugan Attending Provider [phone] DO Medhat Baltazar Attending Provider FAMILY, HEALTH SERVICES Primary Care Unavaila SHAIKH Rasheed Orellana Admitting Unavailable SHAIKH Rasheed JEAN Attending Unavailable DR CAROLYN REDDY V Consulting Unavailable PAY, DR RENDON Consulting Unavailable SUREKHA QUESADA Consulting Unavailable SHAIKH Rasheed JEAN Consulting Unavailable TRACI THACKER Consulting Unavailable CAROLYN TRACY Consulting Unavailable VICTORIANO MCFARLAND Consulting Unavailable FAMILY, HEALTH SERVICES Primary Care Unavaila JUANITA Gunter Admitting Unavailable JUANITA PERLA Attending Unavailable LINDA CAMPBELL Consulting Unavailable MARKER, DR MOORE Consulting Unavailable CLAIR RAMIREZ Consulting Unavailable JUANITA PERLA Consulting Unavailable SAM, SAV Admitting Unavailable SAMSA SAV Attending Unavailable [facility] Primary Care Unavaila ble Tawnya Pepper Primary Care Provider [phone] Felipa PAEZCarlana Unavailable Diogo SOLIS, PhD, Manjula Putnam Unavailable [phone] McGuinn II, Aaron Dentonrick Referring Unav ailable McGuinn II, Aaron Christiansen Attending Unav ailable UNKNOWN, PCP Primary Care Unavailable UNKNOWN, PCP Primary Care Unavailable McGuinn II, Aaron Christiansen Referring Unav ailable McGuinn II, Aaron Christiansen Attending Unav ailable [place], Adventism Consulting Unavailable [facility] Primary Care Unavaila ble Mast, Shane Attending Unavailable Mast, Shane Admitting Unavailable Carolyn Dugan Attending Unavailable Carolyn Dugan Admitting Unavailable LowrieMedhat Referring Unavailable [place], Adventism Referring Unavailable Steve Jacksonew Viv Attending Unavailable Carmine Jackson Admitting Unavailable AMBER CUELLAR Primary Care Physician Tawnya Pepper Primary Care Provider [phone] Felipa PAEZCee Unavailable [phone] Diogo SOLIS, PhD, Manjula Putnam Unavailable Steve SOLIS, Vanessa Unavailable PROVIDER, UNKNOWN Attending Unavailable PROVIDER, UNKNOWN Admitting Unavailable TAWNYA PEPPER Primary Care Unavailable Amber Cuellar DO Primary Care Provider [phone] Blanco Lazcano Attending Unavailable Blanco Lazcano Referring [...] Referring Unavailable MD Blanco Lazcano Admitting Unavailable [place]villeAmber mcclure DO L Unavailable [phone] CUTLERRENOAMBER L Attending Unavailable MISTI PARDO Attending Unavailable AMBER CUELLAR L Referring Unavailable Juan Francisco Johnson Attending Unavailable NONE, XXXX Referring Unavailable Juan Francisco Johnson Attending Unavailable NONE, XXXX Referring Unavailable Juan Francisco Johnson Admitting Unavailable Blanco Lazcano Admitting Unavailable Blanco Lazcano Attending Unavailable Blanco Lazcano Referring Unavailable Jua nFrancisco Johnson Attending Unavailable NONE, XXXX Referring Unavailable Allergies Allergy ClassificationReported Allergen(s)Allergy TypeDate of OnsetReaction(s) Facility (20 sources)Penicillins; Translations: [Penicillins]Allergy to drug (finding) 96-57-1265Dmufbfoybl Breathing, Reaction (qualifier value)[facility]- Teressa 250 DO Work Phone: (17 sources)Morphine; Translations: [MORPHINE]Drug Ahywnxe45-83-8197Emskmegla, Other, [facility]inessMet[facility] Work Phone: (1 source)MorphineDrug AllergyThe [facility] (1 source)PenicillinDrug AllergyThe [facility] (9 sources)Penicillins; Translations: [penicillins]Propensity to adverse reactions to dted84-34-4437Pfzvdhbrai Breathing, Reaction (qualifier value) [facility] ([facility])PenicillinsDrug allergy (disorder)96-72-2202VgertzpykMarietta [facility] (9 sources)Penicillin GDrug Fezeoks76-03-5798XtspvaydhgxTFCL Healthcare Medications Current Medications MedicationDrug Class(es)DatesSig (Normalized)Sig (Original)acetaminophen 325 mg / HYDROcodone bitartrate 5 mg oral tablet (20 sources)Opioid AgonistStart: 04-03-2020 End: 74-76-5219uuzo 1 tablet by mouth every six hoursHydrocodone-Acetaminophen Active 5 - 325 TAB PO Every 6 hours April 02, 2020 11:09jzalr017185 200 actuat albuterol 0.09 mg/actuat metered dose inhaler (20 sources)beta2-Adrenergic AgonistStart: 13-29-3088lsfx 2 puff(s) by inhalation every four hours for wheezingalbuterol HFA 90 mcg/act inhaler Indications: Chronic obstructive pulmonary disease, unspecified COPD type (HCC) INHALE 2 PUFFS EVERY 4 HOURS IF NEEDED FOR WHEEZING. 18 g 5 02/21/2025 Active Start: 05-05-2024 End: 03-71-8117aktj 2 puff(s) by inhalation every four hours for wheezing albuterol HFA 90 mcg/act inhaler Indications: Chronic obstructive pulmonary disease, unspecified COPD type (HCC) Inhale 2 puffs every 4 (four) hours if needed for wheezing 18 g 5 05/05/2024 02/21/2025 DiscontinuedStart: 11-25-2022 albuterol Refills(s) 0 Start Date: 11/25/22 Status: Ordered Repeat number: 1Start: 82-35-3420kcdfxttek Refills(s) 0 Start Date: 11/25/22 Status: OrderedStart: 04-97-6404yltt 1 puff(s) by inhalation every four hoursAlbuterol Sulfate (Proair Hfa) 90 mcg/actuation HFA aerosol inhaler Active 2 PUFF INHALATION Q4H July 04, 2019 4:12pmStart: 07-26-2018 End: 66-38-2874tcnv 2.5 mg by inhalation every eight hoursAlbuterol Sulfate Discontinued 2.5 MG INHALATION Q8H 90 July 26, 2018 12:00am September 07, 2019 2:50pmStart: 06-06-2018 End: 54-12-0961Erahkldeo Sulfate (Proair Hfa) 90 mcg/actuation HFA aerosol [...] hydrochloride 200 mg oral tablet (10 sources)AntiarrhythmicStart: 69-96-2251jlgy 2 tablets by mouth once daily Amiodarone (Pacerone) 200 mg tablet Active 400 MG PO Daily April 03, 2020 2:28pmStart: 07-07-2019 End: 41-02-3937wknt 200 mg by mouth once dailyAmiodarone Discontinued 200 MG PO Daily 60 July 07, 2019 2:42pm April 03, 2020 2:29pmStart: 06-14-2018 End: 55-62-9184kahf 400 mg by mouth once dailyAmiodarone Discontinued 400 MG PO Daily 60 June 14, 2018 12:00am July 07, 2019 2:48pmStart: 06-06-2018 End: 74-83-5887ikcx 400 mg by mouth twice dailyAmiodarone Discontinued 400 MG PO Twice daily 120 June 06, 2018 12:00am June 14, 2018 12:53pm amLODIPine 5 mg oral tablet (4 sources)Dihydropyridine Calcium Channel BlockerStart: 32-39-2420akus 1 tablet by mouth once dailyNorvasc 5 mg Tab 5 mg = 1 tab(s), Oral, Daily, # 30 tab(s), Refills(s) 6, Pharmacy: [facility]/pharmacy #[id number], 167, cm, 08/24/24 13:40:00 EST, Height/Length Dosing, 111, kg, 08/24/24 13:46:00 EST, Weight Dosing Start Date: 08/24/24 Status: Ordered Quantity: 30.0 Unit: tab(s) Repeat number: 7aspirin 81 mg delayed release oral tablet (20 sources)Platelet Aggregation Inhibitor, Nonsteroidal Anti-inflammatory Drug Start: 84-15-4808apna 1 tablet by mouth once dailyaspirin 81 mg Oral EC Tab 81 mg = 1 tab(s), Oral, Daily, # 30 tab(s), Refills(s) 0 Start Date: 11/25/22 Status: Ordered Quantity: 30.0 Unit: tab(s) Repeat number: 1Start: 44-55-3791wpqc 1 tablet by mouth once dailyAspirin Low Dose 81 MG Oral Tablet Delayed Release TAKE 1 TABLET BY MOUTH EVERY DAY Quantity: 30 Refills: 0 Ordered: 17-Aug-2022 Aaron Ocampo MD Start : 16-May-2020 ActiveStart: 06-06-2018 End: 54-13-5233kjcu 1 tablet by mouth once dailyAspirin Low [...] mg oral tablet (20 sources)HMG-CoA Reductase InhibitorStart: 73-97-3531wfkc 1 tablet by mouth once dailyatorvastatin 80 mg Tab 80 mg = 1 tab(s), Oral, Daily, # 30 tab(s), Refills(s) 5, Pharmacy: [facility]/pharmacy #[id number], 167, cm, 05/24/24 13:49:00 EDT, Height/Length Dosing, 110.8, kg, 05/24/24 13:49:00 EDT, Weight Dosing Start Date: 05/26/24 Status: Ordered Quantity: 30.0 Unit: tab(s) Repeat number: 6Start: 55-28-5839uaam 1 tablet by mouth once daily at bedtimeAtorvastatin Calcium 80 MG Oral Tablet TAKE 1 TABLET BY MOUTH EVERYDAY AT BEDTIME Quantity: 90 Refills: 3 Ordered: 19-Aug-2022 Aaron Ocampo MD Start : 21-Jul-2021 ActiveStart: 06-06-2018 End: 68-84-2661fqyp 80 mg by mouth once daily in the eveningAtorvastatin Discontinued 80 MG PO Every evening June 14, 2018 12:00am April 03, 2020 2:29pm60 actuat budesonide 0.16 mg/actuat / formoterol fumarate 0.0045 mg/actuat metered dose inhaler (20 sources)Corticosteroid, beta2-Adrenergic AgonistStart: 80-40-7993jhjelooqsk- formoterol (Symbicort) 160-4.5 MCG/ACT inhaler Indications: Chronic obstructive pulmonary disease, unspecified COPD type (HCC) Inhale 2 puffs every 12 (twelve) hours 3 each 3 03/07/2025 ActiveStart: 67-84-1945lgvh 2 puff(s) by mouth twice dailyBudesonide-Formoterol (Symbicort) 160-4.5 mcg/actuation HFA aerosol inhaler Active 2 PUFF INHALATION Twice daily April 02, 2020 11:00pm INHALE 2 PUFFS BY MOUTH TWICE A DAY *RINSE AFTER USE*Start: 19-67-9215izrj 2 puff(s) by mouth twice dailySymbicort 160-4.5 MCG/ACT inhaler Inhale 2 Puffs by mouth 2 times daily. 03/14/2020 Active End: 88-32-8585Axichmsbz 160-4.5 MCG/ACT inhaler every 12 (twelve) hours. 03/07/2025 Discontinued (Reorder)carvedilol 6.25 mg oral tablet (20 sources)alpha-Adrenergic Filippo, beta-Adrenergic BlockerStart: 11-25-2022 take 1 tablet by mouth twice dailycarvedilol 6.25 mg Tab 6.25 mg = 1 tab(s), Oral, BID, # 60 tab(s), Refills(s) 5, Pharmacy: [facility]/pharmacy #[id number], 167, cm, 05/24/24 13:49:00 EDT, Height/Length Dosing, 110.8, kg, 05/24/24 13:49:00 EDT, W eight Dosing Start Date: 05/26/24 Status: OrderedStart: 06-06-2018 End: 01-91-7959herc 1 tablet by mouth twice dailyCarvedilol 6.25 MG Oral Tablet take 1 tablet by mouth twice a day Quantity: 180 Refills: 3 Ordered:19-Aug-2022 Aaron Ocampo MD Start : 13-Oct-2021 Activeclopidogrel 75 mg oral tablet (20 sources)P2Y12 Platelet InhibitorStart: 69-95-0592ukti 1 tablet by mouth once dailyclopidogrel 75 mg Tab 75 mg = 1 tab(s), Oral, Daily, # 30 tab(s), Refills(s) 5, Pharmacy: [facility]/pharmacy #[id number], 167, cm, 05/24/24 13:49:00 EDT, Height/Length Dosing, 110.8, kg, 05/24/24 13:49:00 EDT, Weight Dosing Start Date: 05/26/24 Status: Ordered Quantity: 30.0 Unit: tab(s) Repeat number: 6Start: 56-10-3720atml 1 tablet by mouth once dailyClopidogrel Bisulfate 75 MG Oral Tablet TAKE 1 TABLET BY MOUTH EVERY DAY Quantity: 90 Refills: 3 Ordered: 19-Aug-2022 Aaron Ocampo MD Start : 21-Feb-2021 ActiveStart: 07-04-2019 End: 40-72-2876aclu 75 mg by mouth once dailyClopidogrel Discontinued 75 MG PO Daily July 04, 2019 12:00am September 07, 2019 2:50pmclotrimazole 10 mg oral lozenge (4 sources)Azole AntifungalStart: 04-03-2020 End: 70-50-9930Vlzyipysokeb Active 10 MG MUCOUS MEM Four times daily April 02, 2020 11:00pmcyclobenzaprine hydrochloride 5 mg oral tablet (20 sources)Muscle RelaxantStart: 11-25-2022 End: 49-21-4359umccpuerlgvbdms 5 mg Tab Refills(s) 0 Start Date: 11/25/22 Status: Orderedtake 1 tablet by mouth three times daily as neededCyclobenzaprine HCl - 5 MG Oral Tablet TAKE 1 TABLET 3 TIMES DAILY NEEDED. Quantity: 0 Refills: 0 Ordered: 07-Jul-2021 DO Activeezetimibe 10 mg oral tablet (3 sources)Dietary Cholesterol Absorption InhibitorStart: 08-16-1027mril 1 tablet by mouth once dailyZetia 10 mg Tab 10 mg = 1 tab(s), Oral, Daily, # 30 tab(s), Refills(s) 6, Pharmacy: [facility]/pharmacy #[id number], 167, cm, 08/01/24 7:46:00 EST, Height/Length Dosing, 111, kg, 01/07/25 7:46:00 EST, Weight Dosing Start Date: 08/01/24 Status: Ordered Quantity: 30.0 Unit: tab(s) Repeat number: 7 furosemide 40 mg oral tablet (20 sources)Loop DiureticStart: 13-90-3446avms 1 tablet by mouth once daily furosemide 40 mg Tab 40 mg = 1 tab(s), Oral, Daily, # 30 tab(s), Refills(s) 0 Start Date: 11/25/22 Status: Ordered Quantity: 30.0 Unit: tab(s) Repeat number: 1 Start: 09-07-2019 End: 42-71-3238tmaw 40 mg by mouth twice dailyFurosemide Discontinued 40 MG PO Twice daily 60 September 07, 2019 12:00am April 03, 2020 2:29pmStart: 11-19-2018 End: 15-41-2850zhnu 40 mg by mouth twice dailyFurosemide Discontinued 40 MG PO Twice daily November 18, 2018 11:00pm August 31, 2019 4:38amStart: 10-10-2018 End: 10-09-6274qtzd 20 mg by mouth once dailyFurosemide Discontinued 20 MG PO Daily October 09, 2018 11:00pm November 19, 2018 5:50pmStart: 06-06-2018 End: 27-12-2795dxtw 40 mg by mouth twice dailyFurosemide Discontinued 40 MG PO BID@0800,1600 60 June 14, 2018 12:00am August 25, 201810:11am gabapentin 100 mg oral capsule (20 sources)Anti-epileptic AgentStart: 19-43-2542iunu 1 capsule by mouth three times dailygabapentin (NEURONTIN) 100 MG capsule Take 1 Capsule by mouth 3 times daily for 120 days. 90 Capsule 3 10/20/2020 Dgqadj36 hr isosorbide mononitrate 30 mg extended release oral tablet (11 sources)Nitrate VasodilatorStart: 21-78-9446twne 1 tablet by mouth once dailyIsosorbide Mononitrate Active 30 MG PO Daily April 02, 2020 11:00pm TAKE 1 TABLET BY MOUTH EVERY DAYStart: 07-04-2019 End: 31-14-1190ujli 30 mg by mouth once dailyIsosorbide Mononitrate Discontinued 30 MG PO Daily July 04, 2019 12:00am August 31, 2019 4:41amisosorbide mononitrate (MONOKET) 10 MG tablet Take 30 mg by mouth daily. ActivelevoFLOXacin 500 mg oral tablet (4 sources)Quinolone AntimicrobialStart: 10-36-8755rsxf 500 mg by mouth once dailyLevofloxacin Active 500 MG PO Daily 01 29April 04, 2020 11:00pmStart: 11-19-2018 End: 79-18-9222xsvu 750 mg by mouth once dailyLevofloxacin Discontinued 750 MG PO Daily November 18, 2018 11:00pm July 04, 2019 4:17pmlevothyroxine sodium 0.2 mg oral tablet (20 sources)l-ThyroxineStart: 26-96-0987fxat 1 tablet by mouth once daily levothyroxine 200 mcg (0.2 mg) Tab 200 mcg = 1 tab(s), Oral, Daily, # 30 tab(s), Refills(s) 0 StartDate: 11/25/22 Status: Ordered Quantity: 30.0 Unit: tab(s) Repeat number: 1Start: 77-42-8117ygcm 1 tablet by mouth once daily at [...] DO ActiveLidocaine (20 sources)Antiarrhythmic, Amide Local AnestheticStart: 74-94-0299zfzjxotbo 5% patch Refill(s) 0 Start Date: 11/25/22 Status: Ordered Repeat number: 1Start: 29-41-4778nacrcavtf 5% patch Refill(s) 0 Start Date: 11/25/22 Status: Ordered Start: 35-28-4356kmfhv 1 dose transdermal route once daily in the morning lidocaine (LIDODERM) 5 % patch Place 1 Patch on the skin every morning. 10 Patch 3 10/20/2020 Active End: 22-14-4352Kuzejqcgc 4 % patch 1 (one) time each day at the same time. 03/07/2025 DiscontinuedLidocaine 5 % External Patch APPLY DIRECTED. Quantity: 0 Refills: 0 Ordered: 07-Jul-2021 DO Activelisinopril 2.5 mg oral tablet (20 sources)Angiotensin Converting Enzyme InhibitorStart: 09-48-4629chos 1 tablet by mouth once dailylisinopril 2.5 mg Tab 2.5 mg = 1 tab(s), Oral, Daily, # 30 tab(s), Refills(s) 5, Pharmacy: [facility]/pharmacy #[id number], 167, cm, 05/24/24 13:49:00 EDT, Height/Length Dosing, 110.8, kg, 05/24/24 13:49:00 EDT, Weight Dosing Start Date: 05/26/24 Status: Ordered Quantity: 30.0 Unit: tab(s) Repeat number: 6Start: 65-82-4620yazz 1 tablet by mouth once dailyLisinopril 2.5 MG Oral Tablet TAKE 1 TABLET DAILY. Quantity: 90 Refills: 3 Ordered: 19-Aug-2022 Aaron Ocampo MD Start : 30-Apr-2021 ActiveStart: 09-07-2019 End: 34-93-7329umhh 1 tablet by mouth once dailyLisinopril 2.5 MG Oral Tablet TAKE 1 TABLET DAILY. Quantity: 90 Refills: 3 Ordered: 01-May-2021 Aaron Ocampo MD Start : 30-Apr-2021 ActiveStart: 06-06-2018 End: 48-70-9003zcyz 2.5 mg by mouth once dailyLisinopril Discontinued 2.5 MG PO Daily June 14, 2018 12:00am August 31, 2019 4:38amloperamide hydrochloride 2 mg oral capsule (20 sources)Opioid AgonistStart: 48-85-7870wdsn 1 capsule by mouth every four hours [...] ActiveLORazepam 0.5 mg oral tablet (20 sources)BenzodiazepineStart: 58-39-3846ptmn 0.25 mg by mouth onceLORazepam 0.5 mg Tab 0.25 mg = 0.5 tab(s), Oral, Once, Refills(s) 0 Start Date: 11/25/22 Status: OrderedStart: 04-03-2020 End: 39-89-5062uxpl 0.5 mg by mouth at bedtimeLorazepam Active 0.5 MG PO Bedtime April 02, 2020 11:00pmStart: 08-31-2019 End: 03-61-4866afgc 0.5 mg under the tongue every six hoursLorazepam Discontinued 0.5 MG SUBLINGUAL Q6H August 31, 2019 12:00am September 07, 2019 2:50pmStart: 06-14-2018 End: 28-22-8763xckb 0.5 mg by mouth every six hoursLorazepam Discontinued 0.5 MG PO Q6H 12 12June 14, 2018 12:00am August 24, 2018 4:09am24 hr metoprolol succinate 100 mg extended release oral tablet (4 sources)beta-Adrenergic BlockerStart: 11-48-7450vfea 1 tablet by mouth once dailyToprol XL 100 mg Tab-ER 100 mg = 1 tab(s), Oral, Daily, # 30 tab(s), Refills(s) 6, Pharmacy: [facility]/pharmacy #[id number], 167, cm, 08/24/24 13:40:00 EST, Height/Length Dosing, 111, kg, 08/24/24 13:46:00 EST, Weight Dosing Start Date: 08/24/24 Status: Ordered Quantity: 30.0 Unit: tab(s) Repeat number: 7Start: 03-39-8097umab 1 tablet by mouth every twenty-four hoursToprol XL 100 MG 24 hr tablet Take 150 mg by mouth 08/24/2024 ActivemetroNIDAZOLE 500 mg oral tablet (4 sources)Nitroimidazole AntimicrobialStart: 91-37-4279adnv 1 tablet by mouth every eight hoursMetronidazole (Flagyl) 500 mg tablet Active 500 MG PO Q8H 12 02April 04, 2020 11:00pmStart: 11-19-2018 End: 71-49-8276ykus 500 mg by mouth four times dailyMetronidazole Discontinued 500 MG PO Four times daily November 18, 2018 11:00pm July 04, 2019 4:17pm naloxone hydrochloride 40 mg/ml nasal spray (7 sources)Opioid AntagonistStart: 89-63-7220gzojsbnc 4 mg/0.1 mL nasal liquid Use 1 [place] in one nostril (alternate sides) as needed for Drug Overdose every 2-3 mins. until help arrives. 2 Each 1 05/04/2021 Activeondansetron 4 mg disintegrating oral tablet (20 sources)Serotonin-3 Receptor AntagonistStart: 60-40-0385arnqefkcmgp ODT (Zofran-ODT) 4 MG disintegrating tablet Indications: Diverticulitis of intestine, part unspecified, with perforation and abscess without bleeding DISSOLVE 1 TABLET UNDER TONGUE ONCE ADAY AT THE SAME TIME EACH DAY 20 tablet 11/03/2024 ActiveStart: 48-04-6303uaff 1 tablet by mouth every six hours as needed for nauseaondansetron 4 mg Dis Tab 4 mg = 1 tab(s), Oral, q6hr, PRN Nausea/Vomiting, # 12 tab(s), Refills(s) 0 Start Date: 11/25/22 Status: Ordered Quantity: 12.0 Unit: tab(s) Repeat number: 1Start: 11-19-2018 End: 01-70-8288wtxc 1 tablet by mouth once dailyondansetron ODT [...] jr) CHEW oral chew tab (7 sources)Start: 57-81-7918hkqt 1 tablet by mouth once dailyPediatric Multivitamins-Iron (cerovite jr) CHEW oral chew tab Take 1 Tablet by mouth daily. 30 Tablet 2 10/20/2020 Activesennosides, group home 8.6 mg oral tablet (7 sources)Start: 93-21-7682gtka 1 tablet by mouth at bedtimesenna (SENOKOT) 8.6 MG tablet Take 1 Tablet by mouth at bedtime. 30 Tablet 05/05/2021 Activesodium chloride 9 mg/ml inhalation solution (8 sources)Start: 00-12-4703zffeyl chloride 0.9% Inh Noemy 3 mL Refill(s) 0 Start Date: 11/25/22 Status: OrderedStart: 91-72-7974pczvtk chloride 0.9% Inh Noemy 3 mL Refill(s) 0 Start Date: 11/25/22 Status: OrderedStart: 60-12-5686kudb 1 mL by inhalation three times dailySodium Chloride Active 3 ML INHALATION Three times daily April 02, 2020 11:00pmspironolactone 25 mg oral tablet (20 sources)Aldosterone AntagonistStart: 29-96-2568jbvv 1 tablet by mouth once dailyspironolactone 25 mg Tab 25 mg = 1 tab(s), Oral, Daily, # 30 tab(s), Refills(s) 5, Pharmacy: [facility]/pharmacy #[id number], 167, cm, 05/24/24 13:49:00 EDT, Height/Length Dosing, 110.8, kg, 05/24/24 13:49:00 EDT, Weight Dosing Start Date: 05/26/24 Status: Ordered Quantity: 30.0 Unit: tab(s) Repeat number: 6Start: 21-16-4584otkd 1 tablet by mouth once dailySpironolactone (Aldactone) 25 mg tablet Active 25 MG PO Daily April 03, 2020 2:28pmStart: 09-07-2019 End: 45-41-9127zljd 25 mg by mouth twice dailySpironolactone Discontinued 25 MG PO Twice daily September 07, 2019 12:00am April 03, 2020 2:29pm Start: 06-14-2018 End: 44-35-9531kkfn 25 mg by mouth once dailySpironolactone Discontinued 25 MG PO Daily June 14, 2018 12:00am August 31, 2019 4:38amStart: 06-06-2018 End: 66-77-2888oxwz 25 mg by mouth twice dailySpironolactone Discontinued 25 MG PO Twice daily 60 June 06, 2018 12:00am June 14, 2018 12:56pm Symbicort 160/4.5 inhalation aerosol with adapter (1 source)Start: 63-22-3310jpfj 2 puff(s) by inhalation twice dailySymbicort 160/4.5 inhalation aerosol with adapter 2 puff(s), Inhalation, BID, Refill(s) 0 Start Date: 11/25/22 Status: Dkppymy18 actuat tiotropium 0.0025 mg/actuat inhalation spray (20 sources)AnticholinergicStart: 23-53-4012mzbb 2 puff(s) by inhalation once dailytiotropium (Spiriva Respimat) 2.5 MCG/ACT inhaler Indications: Chronic obstructive pulmonary disease, unspecified COPD type (HCC) Inhale 2 puffs 1 (one) time each day at the same time 3 each 3 03/07/2025 ActiveStart: 11-25-2022 Spiriva Respimat 60 ACT 2.5 mcg/inh inhalation aerosol Refills(s) 0 Start Date: 11/25/22 Status: OrderedStart: 12-63-4616nvep 2 puff(s) by mouth once daily Tiotropium Lind (Spiriva Respimat) 2.5 mcg/actuation mist Active 2 PUFF INHALATION Daily April 02, 2020 11:00pm INHALE 2 PUFFS BY MOUTH EVERYDAY End: 75-97-3413Bvakbhh Respimat 2.5 MCG/ACT inhaler 1 (one) time each day at the same time. 03/07/2025 Discontinued (Reorder)Tiotropium Lind Monohydrate (Spiriva Respimat) 2.5 MCG/ACT AERS 2 puffs Activetake 2 puff(s) by inhalation once dailySpiriva Respimat 2.5 MCG/ACT Inhalation Aerosol Solution INHALE 2 PUFFS ONCE DAILY Quantity: 0 Refills: 0 Ordered: 07-Jul-2021 DO ActivetraZODone hydrochloride 50 mg oral tablet (10 sources)Serotonin Reuptake InhibitorStart: 01-24-8717dykt 1 tablet by mouth at bedtimetraZODone (Desyrel) 50 MG tablet Indications: Insomnia, unspecified type TAKE 1 TABLET BY MOUTH AT BEDTIME 30 tablet 02/21/2025 ActiveStart: 70-93-7680kypmpemsv Oral, Refills(s) 0 Start Date: 05/24/24 Status: Ordered Start: 01-17-2024 End: 46-04-3053ehux 1 tablet by mouth at bedtimetraZODONE 50 mg Tab TAKE 1 TABLET BY MOUTH AT BEDTIME Start Date: 12/01/24 Status: Ordered Repeat number: 1 Completed/Discontinued Medications MedicationDrug Class(es)DatesSig (Normalized)Sig (Original)acetaminophen 325 mg oral tablet (9 sources)Start: 06-14-2018 End: 27-09-2123ococ 650 mg by mouth every four hoursAcetaminophen [...] solution (2 sources)Anticholinergic, beta2-Adrenergic AgonistStart: 09-07-2019 End: 03-67-5111ppkj 1 mL by inhalation four times dailyIpratropium-Albuterol Discontinued 3 ML INHALATION Four times daily - Respiratory 120 September 072019 12:00am April 03, 2020 2:28pmapixaban 5 mg oral tablet (4 sources)Factor Xa InhibitorStart: 09-07-2019 End: 39-81-0860pxdi 1 tablet by mouth twice dailyApixaban (Eliquis) 5 mg Tablet Discontinued 5 MG PO Twice daily 60 September 07, 2019 12:00am April 03, 2020 2:28pmazithromycin 250 mg oral tablet (2 sources)Macrolide AntimicrobialStart: 01-12-2024 End: 73-35-9516mpzg 2 tablets by mouth once daily, then take 1 tablet by mouth once dailyazithromycin (Zithromax) 250 MG tablet Indications: COPD with acute exacerbation (CMS/HCC) Take 2 tablets (500 mg) by mouth Daily for 1 day, THEN 1 tablet (250 mg) Daily for 4 days. 6 tablet 01/12/2024 01/17/2024 Discontinued (Therapy completed)bisacodyl 5 mg delayed release oral tablet (2 sources)Stimulant LaxativeStart: 08-24-2018 End: 98-41-1027ygll 5 mg by mouth once dailyBisacodyl Discontinued 5 MG PO Daily August 24, 2018 12:00am August 31, 2019 4:41amdocusate sodium 100 mg oral capsule (19 sources)Start: 08-31-2019 End: 76-30-1268xdfz 1 capsule by mouth twice dailyDocusate Sodium (Colace) 100 mg Capsule Discontinued 100 MG PO Twice daily August 31, 2019 12:00am September 07, 2019 2:50pm End: 82-26-3348Ulrovhoe Sodium (DSS) 100 MG capsule 1 (one) time each day at the same time. 03/07/2025 Discontinueddoxycycline hyclate 100 mg oral capsule (2 sources)Tetracycline-class DrugStart: 07-26-2018 End: 56-80-1407eutl 100 mg by mouth twice dailyDoxycycline Hyclate Discontinued 100 MG PO Twice daily 12 July 26, 2018 12:00am August 01, 2018 12:01am Ergocalciferol (2 sources)Provitamin D2 CompoundStart: 07-07-2019 End: 25-46-5263Noemyxuswdkdll (Vitamin D2) Discontinued 34554 UNIT PO We@0900 7 July 07, 2019 12:00am August 31, 2019 4:41amStart: 07-07-2019 End: 09-57-4506Dvdipmjzcbxegu (Vitamin D2) Discontinued 84544 UNIT PO We@0900 7 July 07, 2019 1:00am August 31, 2019 5:63fu064 actuat fluticasone propionate 0.11 mg/actuat metered dose inhaler (11 sources)CorticosteroidStart: 07-04-2019 End: 96-56-4432wtzs 1 puff(s) by mouth twice dailyFluticasone Propionate (Flovent Hfa) 110 mcg/actuation HFA aerosol inhaler Discontinued 1 PUFF INHAL ATION Twice daily April 02, 2020 11:00pm April 04, 2020 1:46pm TAKE 1 PUFF BY MOUTH TWICE A DAYtake 1 puff(s) by mouth twice dailyfluticasone (FLOVENT HFA) 110 MCG/ACT inhaler Inhale 1 Puff by mouth 2 times daily. Active Lylfeoqcgfd-Eomqcxuaw-Tazhnz (Trelegy Ellipta) 200-62.5-25 MCG/ACT aerosol powder (5 sources)Start: 04-26-2024 End: 02-85-1078nkxd 1 puff(s) by inhalation once daily Tkcwfxlmmoj-Fvcczwzcb-Tfxoqn (Trelegy Ellipta) 200-62.5-25 MCG/ACT aerosol powder Indications: Chronic obstructive pulmonary disease, unspecified COPD type (HCC) Inhale 1 puff Daily 1 each 5 04/26/2024 03/07/2025 DiscontinuedStart: 07-68-4923spga 1 puff(s) by inhalation once lzvgmCmbyffgbjnn-Bgwmyiein-Ifmqoc (Trelegy Ellipta) 200-62.5-25 MCG/ACT aerosol powder Indications: Chronic obstructive pulmonary disease, unspecified COPD type (HCC) Inhale 1 puff Daily 1 each 5 04/26/2024 ActiveStart: 07-35-2936diqz 1 puff(s) by inhalation once cydkvNlpfqvwbvcx-Bhzouikgk-Gmvsqa (Trelegy Ellipta) 200-62.5-25 MCG/ACT aerosol powder Indications: Chronic obstructive pulmonary disease, unspecified COPD type (CMS/HCC) Inhale 1 puff Daily 1 each 5 04/26/2024 Urjfgq52 hr guaiFENesin 600 mg extended release oral tablet (6 sources)Start: 07-07-2019 End: 08-22-5287cwox 2 tablets by mouth twice daily, then take 1 tablet by mouth every twelve hoursGuaifenesin (Mucinex) 600 mg Tablet Extended Release 12hr Discontinued 1200 MG PO Twice daily 20 July 07, 2019 12:00am August 31, 2019 4:41amStart: 08-18-2018 End: 52-01-9902qslp 1200 mg by mouth every twelve hoursGuaifenesin Discontinued 1200 MG PO Q12H 05 02August 18, 2018 12:00am August 25, 2018 12:02amStart: 07-26-2018 End: 76-10-1655wcpd 1 tablet by mouth every twelve hours, then take 1 tablet by mouth every twelve hoursGuaifenesin (Mucinex) 600 mg tablet extended release 12hr Discontinued 600 MG PO Q12H July 26, 2018 12:00August 18, 2018 12:36pmhydrOXYzine pamoate 25 mg oral capsule (2 sources)AntihistamineStart: 06-06-2018 End: 14-54-6923ldmq 25 mg by mouth every six hoursHydroxyzine Pamoate Discontinued 25 MG PO Q6H June 06, 2018 12:00am June 14, 2018 12: 53pmipratropium bromide 0.2 mg/ml inhalation solution (2 sources)AnticholinergicStart: 07-26-2018 End: 79-90-5483qvzx 1 mL by inhalation every eight hoursIpratropium Lind Discontinued 1.25 ML INHALATION Q8H July 26, 2018 12:00am August 31 4:41ammethylPREDNISolone 4 mg oral tablet (2 sources)CorticosteroidStart: 07-07-2019 End: 01-29-2604pcci 1 tablet by mouth onceMethylprednisolone (Medrol (Blue)) 4 mg tablets,dose pack Discontinued 0 PO .COMPLEX July 07, 2019 12:00am August 31, 2019 4:41am orally per package directionsmicroencapsulated potassium chloride 20 meq extended release oral tablet (20 sources)Start: 96-08-8458ppzq 1 tablet by mouth once dailyKlor-Con M20 oral tablet, extended release 20 mEq = 1 tab(s), Oral, Daily, # 30 tab(s), Refills(s) 0 Start Date: 11/25/22 Status: Ordered Quantity: 30.0 Unit: tab(s) Repeat number: 1Start: 16-58-8423fpir 2 tablets by mouth once dailyKlor-Con M20 20 MEQ Oral Tablet Extended Release TAKE 2 TABLETS BY MOUTH DAILY Quantity: 60 Refills: 0 Ordered: 18-Aug-2022 Aaron Sanz DO Start : 27-Apr-2021 ActiveStart: 49-23-1328adfm 2 tablets by mouth once dailyKlor-Con M20 20 MEQ Oral Tablet Extended Release TAKE 2 TABLETS BY MOUTH DAILY Quantity: 180 Refills: 3 Ordered: 22-Jul-2021 Paty Gage Start : 27-Apr-2021 ActiveStart: 08-45-7051lkrc 2 tablets by mouth once dailyKlor-Con M20 20 MEQ Oral Tablet Extended Release TAKE 2 TABLETS BY MOUTH DAILY Quantity: 60 Refills: 0 Ordered: 17-Jun-2021 Aaron Sanz DO Start : 27-Apr-2021 ActiveStart: 48-87-7173mfwd 2 tablets by mouth once dailyPotassium Chloride (Klor-Con M20) 20 mEq tablet,ER particles/crystals Active 40 MEQ PO Daily April 02, 2020 11:00pm TAKE 2 TABLETS BY MOUTH DAILYStart: 10-10-2018 End: 74-05-5828Dnjowgzsf Chloride (K-Tab) 20 mEq Tablet Extended Release Discontinued 40 mEq/day PO Daily October 09, 2018 11:00pm September 07, 2019 2:50pmStart: 06-14-2018 End: 83-29-5942Mfeqqvjfp Chloride (Klor-Con M20) 20 mEq Tablet,Er Particles/Crystals Discontinued 40 MEQ PO Daily 60 June 14, 2018 12:00am August 25, 2018 10:11amprednisoLONE 10 mg disintegrating oral tablet (2 sources)CorticosteroidStart: 07-26-2018 End: 72-71-6702Zuxppztkpdql Sodium Phosphate Discontinued 10 MG PO As Directed July 26, 2018 12:00am August 17, 2018 2:04pm 40 mg for 3 days, 30 mg for 3 days, 20 mg for 3 days, 10 mg for 3 days then stoppredniSONE 10 mg oral tablet (20 sources)Start: 06-04-2024 End: 60-10-0102aipmpbXMZJ (Deltasone) 10 MG tablet PLEASE SEE ATTACHED FOR DETAILED DIRECTIONS 06/04/2024 03/07/2025 DiscontinuedStart: 01-12-2024 End: 49-64-4376lxai 1 tablet by mouth three times daily, [...] 2 days. 21 tablet 01/12/2024 01/21/2024 ExpiredStart: 46-33-6977yhij 60 mg by mouth once daily at mealtimePrednisone Active 60 MG PO Daily November 27, 2020 11:00pm administer with food or milkStart: 57-47-3920jjav 40 mg by mouth once dailyPrednisone Active 40 MG PO Daily 10 April 04, 2020 11:00pmStart: 09-07-2019 End: 93-63-8504Pgkvbwvdiy Discontinued 10 MG PO Daily September 07, 2019 12:00am April 03, 2020 2:29pm 40mg for 2 days, 30 mg for 2 days, 20 mg for 2 days, 10 mg for 2 days then stopStart: 10-11-2018 End: 29-57-7835Gijkgktibz Discontinued 10 MG PO Daily October 10, 2018 11:00pm November 19, 2018 5:52pm take 60mg (6 tabs aday) for 3 days, then 40mg (4tabs) for 3 days, then 20mg (2tabs) for 3 days, then 10mg (1tab) for 3 days. Start: 08-18-2018 End: 07-77-9498Lrmwqdnwbg Discontinued 10 MG PO Daily August 18, 2018 12:00am August 25, 2018 10:11am take 40mg (4tabs) for 3 days, then 20mg (2tabs) for 3 days, then 10mg (1tab) for 3 days.Start: 07-26-2018 End: 91-46-4048Rbewsxcbjm Discontinued 10 MG PO As Directed July 26, 2018 12:00am August 17, 2018 2:04pm40 mg for 3 days, 30 mg for 3 days, 20 mg for 3 days then 10 mg for 3 days then stopStart: 06-06-2018 End: 87-53-5563mqpy 10 mg by mouth once daily for chronic obstructive pulmonary diseasePrednisone Discontinued 10 MG PO Daily June 06, 2018 12:00am June 14, 2018 12:55pm please start on 06/11/2018 after finished 20 mg prednisone. For COPDStart: 06-06-2018 End: 16-43-4777yjwz 20 mg by mouth once dailyPrednisone Discontinued 20 MG PO Daily 4 June 06, 2018 12:00am June 14, 2018 12:53pmticagrelor 90 mg oral tablet (8 sources)Start: 06-06-2018 End: 90-64-0519vvzz 1 tablet by mouth twice dailyTicagrelor (Brilinta) 90 mg Tablet Discontinued 90 MG PO Twice daily 60 June 14, 2018 12:00am July 26, 2018 3:36pm Problems Active Problems Problem ClassificationProblemDateDocumented DateEpisodic/ChronicAcute bronchitis (2 sources)Acute bronchitis; Translations: [Acute bronchitis, unspecified] 72-91-0270DfixjnukWaouw cerebrovascular disease (9 sources)Cerebral infarction; Translations: [Cerebral infarction, unspecified] Onset: 104745-57-1211OxkdglzCiqiejpmtaascx/social admission (2 sources)Other reduced mobility; Translations: [Impaired mobility and activities of daily living]06-54-7077CaeurgigKhnncrn disorders (20 sources)Anxiety; Translations: [Anxiety disorder, unspecified]Onset: 008115-50-2584LxmxqfuAxkfqtxyv and vision defects (2 sources)Eye / vision finding; Translations: [Unspecified visual disturbance] 88-12-4116PsapiplcNcktjon dysrhythmias (20 sources)Cardiac arrhythmia, unspecified; Translations: [Ventricular tachycardia]Onset: 370414-20-7951JjknquiBawfwyh obstructive pulmonary disease and bronchiectasis (20 sources)Chronic obstructive pulmonary disease, unspecified; Translations: [Chronic obstructive lung disease]Onset: 10-13-2018 Resolved: 034799-00-4618MngsffiBkglxpbhfx disorders (20 sources)Patient encounter status; Translations: [Fitting and adjustment of automatic implantable cardiac defibrillator]Onset: 05-06-2022 Resolved: 70-63-9075BimmwxaOnsmeumkkm heart failure; nonhypertensive (20 sources)Heart failure, unspecified; Translations: [Heart failure with reduced ejection fraction]Onset: 08-26-2018 Resolved: 731053-76-3752EevopjkQbiqegpo atherosclerosis and other heart disease (20 sources)Ischemic cardiomyopathy; Translations: [Atherosclerotic heart disease of [place] coronary artery without angina pectoris]Onset: 10-13-2018 Resolved: 975230-89-1813XznzghpLjzmqjbq atherosclerosis and other heart disease (2 sources)Coronary angioplasty status; Translations: [Coronary angioplasty status]Onset: 36-76-4217FdrupvgvDbgdbhmq mellitus without complication (2 sources)Impaired fasting glycemia; Translations: [Impaired fasting glucose] 30-52-2582FxhkhmixIygbxrqvp of lipid metabolism (12 sources)Hyperlipidemia; Translations: [Hyperlipidemia, unspecified]Onset: 494656-59-1198ZylovbfNsuvpgzhdasnha and diverticulitis (20 sources)Diverticulitis of large intestine; Translations: [Diverticulitis of large intestine with perforation and abscess without bleeding]Onset: 11-20-2018 Resolved: 270382-03-9460FgwsihrPbnsasrje hypertension (20 sources)Essential (primary) hypertension; Translations: [Benign essential hypertension]Onset: 196068-20-3387LzidnbzUdmnw valve disorders (9 sources)Mitral valve disorder; Translations: [Other nonrheumatic mitral valve disorders]Onset: 229812-63-8227FkjpnyuNratyciqlgyl with complications and secondary hypertension (1 source)Hypertensive heart disease with heart failureOnset: 59-99-9479Heudjrz Late effects of cerebrovascular disease (9 sources)Hemiparesis as late effect of cerebrovascular disease; Translations: [Hemiplegia and hemiparesis following unspecified cerebrovascular disease affecting right dominant side]Onset: 682484-14-2859CctvsftPjvsfmyeqoh chest pain (4 sources)Chest pain; Translations: [Chest pain, unspecified]72-55-0810Kmckhmuc Other aftercare (20 sources)Drug therapy finding; Translations: [Long-term (current) use of other medications]EpisodicOther gastrointestinal disorders (12 sources)Ileostomy present; Translations: [Encounter for attention to ileostomy]Onset: 231526-56-4197FkguhbzIpueg gastrointestinal disorders (18 sources)Colostomy present; Translations: [Encounter for attention to colostomy]Onset: 12-12-2019 Resolved: 517300-57-0740EbohfmoOmnbs gastrointestinal disorders (1 source)Colostomy status; Translations: [COLOSTOMY STATUS]Onset: 08-01-2021 ChronicOther gastrointestinal disorders (1 source)Ileostomy status; Translations: [Ileostomy status (HCC)]Onset: 24-59-2428XkwufuxAoybq hematologic conditions (2 sources)Raised cardiac enzyme or marker; Translations: [Other specified abnormalities of plasma proteins]08-49-3069JlnhynzpYngxb lower respiratory disease (2 sources)Pulmonary edema; Translations: [Chronic pulmonary edema]07-04-2019 ChronicOther nervous system disorders (9 sources)Aphasia; Translations: [Aphasia]Onset: 630871-29-8138Kplhrnm Other nervous system disorders (9 sources)Cognitive deficit in communication skills; Translations: [Cognitive communication deficit]Onset: 945014-65-8611TwyvdyiUirci nervous system disorders (9 sources)Difficulty walking; Translations: [Difficulty in walking, not elsewhere classified]Onset: 028420-82-5043NaqzuggWkzwm nutritional; endocrine; and metabolic disorders (1 source)Obesity, unspecifiedOnset: 02-40-9212HikaksuMlmaw nutritional; endocrine; and metabolic disorders (3 sources)Body mass index 30+ - obesity; Translations: [Body Mass Index 34.0- 34.9, adult]ChronicOther nutritional; endocrine; and metabolic disorders (20 sources)Obesity; Translations: [Obesity, unspecified]Onset: 03-25-2020 40-34-4370UtvksemKdxub nutritional; endocrine; and metabolic disorders (1 source)Morbid (severe) obesity due to excess calories; Translations: [MORBID SEVERE OBES D/T EXCESS NEHA]Onset: 66-76-2313BpqlgueElwbm nutritional; endocrine; and metabolic disorders (1 source)Body mass index (BMI) 32.0-32.9, adult; Translations: [BODY MASS INDEX BMI 32.0-32.9 ADULT]Onset: 40-20-4518CngkwcrOjxpj nutritional; endocrine; and metabolic disorders (12 sources)Obesity caused by energy imbalance; Translations: [Other obesity due to excess calories]Onset: 817278-58-8262EzcrcroRbyh-; endo-; and myocarditis; cardiomyopathy (except that caused by tuberculosis or sexually transmitted disease) (11 sources)Cardiomyopathy; Translations: [Cardiomyopathy, unspecified]Onset: 140168-23-3675ApnesjtPvhvwngk codes; unclassified (11 sources)Sleep apnea; Translations: [Sleep apnea, unspecified]Onset: 740338-32-2599BdpsuerGnkrnkon codes; unclassified (1 source)Obstructive sleep apnea (adult)(pediatric); Translations: [Obstructive sleep apnea (adult) (pediatric)]Onset: 38-80-1038NktgwzsQeaptjvi codes; unclassified (1 source)Hypersomnia; Translations: [Hypersomnia, unspecified]80-83-9475Mlxkczp Residual codes; unclassified (9 sources)Nicotine-filled electronic cigarette user; Translations: [Tobacco use disorder]EpisodicComment on above:one electronic device a week;Residual codes; unclassified (2 sources)Patient encounter status; Translations: [Encounter for prophylactic measures, unspecified]99-42-9136TouduxsbHqrivddqhcu failure; insufficiency; arrest (adult) (2 sources)Uwmea-ht-mpvkozo respiratory failure; Translations: [Acute and chronic respiratory failure with hypoxia]41-65-1065OthauvxZocxzzfvt-related disorders (16 sources)Smoker; Translations: [Nicotine dependence, unspecified, uncomplicated]Onset: 08-01-2021 Resolved: 507478-75-6350OrdrvfkGozogxc disorders (20 sources)Hypothyroidism; Translations: [Unspecified acquired hypothyroidism] Onset: 03-25-2020 Resolved: 283772-22-7852PajipbvSfoivbrmucmp (3 sources)Cardiomyopathy, unspecified; Translations: [Cardiomyopathy, unspecified]Onset: 80-72-9885Gsyplltdejjx (1 source)Encntr for adjust and mgmt of automatic implntbl card defibOnset: 84-74-4038Zgxedifvrapb (1 source)Family hx of ischem heart dis and oth dis of the circ sysOnset: 45-07-3283Vyflxictopkn (1 source)CONTACT W/AND (SUSP) EXPOS COVID-19; Translations: [CONTACT W/AND (SUSP) EXPOS COVID-19]Onset: 08-01-2021 Past or Other Problems Problem ClassificationProblemDateDocumented DateEpisodic/ChronicAcute myocardial infarction (9 sources)Myocardial infarction; Translations: [Non-ST elevation (NSTEMI) myocardial infarction]Onset: 06-27-2024 Resolved: 057639-11-0099FqdsidgJxksxbvacackr of surgical procedures or medical care (14 sources)Colostomy malfunction; Translations: [Colostomy malfunction]Onset: 06-14-2020 Resolved: 282216-53-2469WgyndtjHreuaiquxnlib of surgical procedures or medical care (16 sources)Drug-induced hypotension; Translations: [Hypotension due to drugs] Onset: 589490-16-3405XgiwuzfuVvjhctfnnc associated with dizziness or vertigo (20 sources)Dizziness; Translations: [Dizziness and giddiness]Onset: 01-11-2024 Resolved: 779528-26-1852WonsupkyTxjvp and electrolyte disorders (11 sources)Hyponatremia; Translations: [Hypo-osmolality and hyponatremia]Onset: 01-17-2024 Resolved: 818670-91-9944SsexdrmpQkvwdplnznywjhaz hemorrhage (16 sources)Lower gastrointestinal hemorrhage; Translations: [Gastrointestinal hemorrhage, unspecified]Onset: 483678-78-6279YdkhijtbGccflgx (16 sources)Candidiasis of mouth; Translations: [Candidal stomatitis]Onset: 900636-37-0032ZgitrsifUguhmkvpxcxew gastroenteritis (16 sources)Colitis; Translations: [Noninfective gastroenteritis and colitis, unspecified]Onset: 890306-69-6880MafueeufZxkamfwxoel deficiencies (6 sources)Vitamin D deficiency, unspecified; Translations: [Vitamin D deficiency]Onset: 06-08-2022 Resolved: 960808-51-4184XcakiwsVqpmd aftercare (1 source)FPC (current) use of aspirin; Translations: [DRESSMAKER OR TAILOR CURRENT USE OF ASPIRIN]Onset: 49-07-4684UmymklomPnfac aftercare (1 source)Other terminal clerk (current) drug therapy; Translations: [OTH FPC CURRENT DRUG THERAPY]Onset: 61-64-5885LtowhgbaTdleq circulatory disease (1 source)Personal history of sudden cardiac arrest; Translations: [PERSONAL HISTORY SUDDEN CARD ARREST]Onset: 40-72-8804TyagtcecYjoho connective tissue disease (11 sources)Muscle weakness; Translations: [Muscle weakness (generalized)]Onset: 522211-17-6036YxpqbhavOkojw gastrointestinal disorders (15 sources)Intra-abdominal collection; Translations: [Other ascites]Onset: 655597-73-3969IgunqcejEjuku gastrointestinal disorders (1 source)Abdominal mass; Translations: [Other ascites]Onset: 08-18-2019 03-31-3570ZwohkhuuArfyj lower respiratory disease (11 sources)Dyspnea; Translations: [Shortness of breath]Onset: 09-07-2019 84-69-9332IcqmksckWdmgk nervous system disorders (5 sources)Bilateral carpal tunnel syndrome; Translations: [Carpal tunnel syndrome, bilateral upper limbs]Onset: 06-27-2024 Resolved: 415095-54-5537HikoijpIkdag screening for suspected conditions (not mental disorders or infectious disease) (16 sources)Prolonged QT interval; Translations: [Abnormal electrocardiogram [ECG] [EKG]]Onset: 772196-44-2594HzzanpbmLrqxn upper respiratory disease (11 sources)Bronchospasm; Translations: [Acute bronchospasm]Onset: 01-17-2024 88-96-6032VxcivhdgUyuofoqdw; thrombophlebitis and thromboembolism (11 sources)Deep venous thrombosis of lower extremity; Translations: [Acute embolism and thrombosis of unspecified deep veins of right lower extremity] Onset: 825846-47-0448SovkprmjXmdhypqwt (except that caused by tuberculosis or sexually transmitted disease) (9 sources)Pneumonia; Translations: [Pneumonia, unspecified organism]Onset: 987451-42-5552MjvjkabsSyhbvlqox heart disease (20 sources)H/O: pulmonary embolus; Translations: [Personal history of pulmonary embolism]Onset: 09-07-2019 Resolved: 360482-63-4481KwhsphfpFdtebojn codes; unclassified (5 sources)Obstructive sleep apnea syndrome; Translations: [Obstructive sleep apnea (adult) (pediatric)]Onset: 06-27-2024 Resolved: 951603-44-2364EkmfjtqBhsomtqi codes; unclassified (17 sources)History of closure of colostomy; Translations: [Other specified postprocedural states]Onset: 053021-65-4845MnvskmtfAgcrragr codes; unclassified (11 sources)History of partial resection of colon; Translations: [Acquired absence of other specified parts of digestive tract]Onset: EpisodicResidual codes; unclassified (1 source)Other amnesia; Translations: [Other amnesia]Onset: 86-15-0697Lvrqjjhu Residual codes; unclassified (11 sources)Tobacco user; Translations: [Tobacco use]Onset: 06-27-2024 Resolved: 538926-10-7542YfzqahlxFlshecqv codes; unclassified (5 sources)Insomnia; Translations: [Insomnia, unspecified]Onset: 06-27-2024 Resolved: 817513-18-2065FfjgsdlbOowkbxye codes; unclassified (5 sources)Memory impairment; Translations: [Other amnesia]Onset: 06-27-2024 Resolved: 698957-95-4454MnhlaqrhPoardayvgce failure; insufficiency; arrest (adult) (20 sources)Hypoxemic respiratory failure; Translations: [Respiratory failure, unspecified with hypoxia]Onset: 608427-74-2678NsrbffahCquqyerci and history of mental health and substance abuse codes (20 sources)Personal history of nicotine dependence; Translations: [Ex-smoker] Onset: 617903-17-6393FidckgxrKqcvdar on above:QUIT 2017 07 PPD;quit 05/26/2021;Skin and subcutaneous tissue infections (20 sources)Abscess of abdominal wall; Translations: [Cutaneous abscess of abdominal wall]Onset: 571981-30-1498GaugwxdsRtzwwta (11 sources)Syncope; Translations: [Syncope and collapse]Onset: 01-17-2024 Resolved: 457640-47-5786ThqkghskVyrxofrmxbgv (5 sources)Smoker; Translations: [Smoking]Onset: 01-17-2024 Resolved: 467974-90-0548 Results Test NameValueInterpretationReference RangeFacilityHeart and Vascular Office/Clinic Noteon 18-75-4608Qjarp and Vascular Office/Clinic NoteHeart and Vascular Office/Clinic [...] Mild diffuse disease L (more content not included)...[facility] HospitalComment [facility]:Result Comment: Electronically Signed By: Elizabeth LACEY, Juan Francisco Nam\barby\Date and Time Signed: 05/24/25 14:47 EDTHeart and Vascular Office/Clinic Noteon 43-02-5970Tykvj and Vascular Office/Clinic NoteHeart and Vascular Office/Clinic [...] previously placed stent in (more content not included)...[facility] HospitalComment on above:Result Comment: Electronically Signed By: Juan [...] note The patient was heparinized. A 6 Bangladeshi JR4 guiding catheter was used. Right coronary artery was engaged. Intracoronary nitroglycerin was administered. Pressure wire was advanced to the proximal RCA,and after performance of advanced normalization, advanced to the distal RCA with no technical difficulties. iFR was assessed at 0.95, consistent with fu (more content not included)... [facility] HospitalComment on above:Result Comment: Electronically Signed By: Elizbaeth LACEY, Juan Francisco Nam\.br\Date and Time Signed: 12/04/24 10:03 EDT Heart and Vascular Office/Clinic Noteon 82-91-2046Yfctg and Vascular Office/Clinic NoteHeart and Vascular Office/Clinic [...] (06/20/2024 15:19 EST Echo Transthoracic w/ Contrast) [place] [address] Adult Echocardiogram Report Name: ELICEO KENNY Study Date: 06/20/2024 02:24 PM BP: 139/88 mmHg [place] [facility] [place] [facility] [place] 87 : 1965 Gender: Male Height: [...] catheterization procedure report DATE OF PROCEDURE: 08/01/2024 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 The planned puncture sites/areas were prepped and draped in usual sterile fashion and a safety time-out was performed. Moderate Sedation was given by the Cardiac Urology Physician Assistant RN. RIGHT RADIAL ARTERY ACCESS: The puncture site was infiltrated with 1% lidocaine. The modified Seldinger technique was performed to access the right radial artery using (more content not included)...[facility] Comment on above:Result Comment: Electronically Signed By: Jaleesa SOLIS, Blanco [place]\.br\Date and Time Signed: 08/24/24 14:00 ESTCB w/Indiceson 08-01-2024 Erythrocyte distribution width (RBC) [Ratio]13.7 %Fslthh56.9-14.2FGreene Memorial HospitalComment on above:Order Comment: if not completed in last 30 days Performed By: #### [id number] #### [facility] [address], [place] [address]Qxkpilplkr (Bld) [Volume fraction]44.2 %Prmkyo12.7-49.0[facility] HospitalComment on above:Order Comment: if not completed in last 30 daysPerformed By: #### [id number] #### [facility] [address], [place] [address]Qlakmvvbym (Bld) [Mass/Vol]15.7 g/hXTislrq93.5-17.5FGreene Memorial HospitalComment on above:Order Comment: if not completed in last 30 days Performed By: #### [id number] #### [facility] [address] [place] [address] [id number] (RBC) [Entitic mass]34.7 nqGbhf17.0-34.0[facility] HospitalComment on above:Order Comment: if not completed in last 30 days Performed By: #### [id number] #### [facility] [address] [place] [address] [id number] (RBC) [Mass/Vol]35.5 g/nQCcqboz63.4-36.0[facility] HospitalComment on above:Order Comment: if not completed in last 30 days Performed By: #### [id number] #### [facility] [address] [place] [address] [id number] (RBC) [Entitic vol]97.6 yFFzxmsa35.0-100.0[facility] HospitalComment on above:Order Comment: if not completed in last 30 days Performed By: #### [id number] #### [facility] [address] [place] [address] 58182Zbxjmysx786.0 E9/AZnfrrl373.0-500.0[facility] Comment on above:Order Comment: if not completed in last 30 daysPerformed By: #### [id number] #### [facility] [address] [place] [address] 18552Svcforsk mean volume (Bld) [Entitic vol]7.4 fLNormal6.4-10.8 [facility] HospitalComment on above:Order Comment: if not completed in last 30 daysPerformed By: #### [id number] #### [facility] [address] [place] [address] 25387DFU (Bld) [#/Vol]4.5 E12/LNormal4.3-5.9[facility] HospitalComment on above:Order Comment: if not completed in last 30 daysPerformed By: #### [id number] #### [facility] [address], [place] [address]QVG size Nom (Bld)NORMALInvalid Interpretation CodeMemorial Health System Selby General HospitalComment on above:Order Comment: if not completed in last 30 days Performed By: #### [id number] #### [facility] [address], [place] [address]LJK corrected for nucl RBC Auto (Bld) [#/Vol]8.0 E9/LNormal 4.0-11.0[facility] HospitalComment on above:Order Comment: if not completed in last 30 daysPerformed By: #### [id number] #### [facility] [address] [place] [address] 600[address]Kvoxymnyr Instructionson 28-98-9856Gutvvwyyo Instructions Discharge Instructions ZOYAELICEO :1965 Visit Date:08/01/2024 [...] Lazcano When: 08/24/2024 02:45 PM EST Where: [address] [place] [address] [phone] Business (1) Medications What How Much When [...] MRI compatible. Implanted PC (more content not included)...NormalMemorial Health System Selby General HospitalComment on above:Result Comment: Electronically Signed By: Mustapha BARAJAS, Sangeeta Nam\.jesus\Date and Time Signed: 08/01/24 11:20 ESTHEMATOLOGYOrdered By: SYSTEM SYSTEM on 08-01-2024 Erythrocyte distribution width (RBC) [Ratio]13.7 %Mnnzkk12.9 - 14.2 %Remisol HemeHematocrit (Bld) [Volume fraction]44.2 %Wgxylq77.7 - 49.0 %Remisol Heme Hemoglobin (Bld) [Mass/Vol]15.7 g/xULcmvyt33.5 - 17.5 gm/dLRemisol HemeMCH (RBC) [Entitic mass]34.7 snYexm29.0 - 34.0 pgRemisol HemeMCHC (RBC) [Mass/Vol]35.5 g/dAUytrlv89.4 - 36.0 gm/dLRemisol HemeMCV (RBC) [Entitic vol]97.6 yGWqrtzb16.0 - 100.0 fLRemisol OyuyZdutopxb853.0 E9/VWufpse715.0 - 500.0 E9/LRemisol Heme Platelet mean volume (Bld) [Entitic vol]7.4 fLNormal6.4 - 10.8 fLRemisol HemeRBC (Bld) [#/Vol]4.5 E12/LNormal4.3 - 5.9 E12/LRemisol HemeRBC size Nom (Bld)NORMAL *NA* (08/01/24 7:30 AM)Invalid Interpretation CodeRemisol HemeWBC corrected for nucl RBC Auto (Bld) [#/Vol]8.0 E9/LNormal4.0 - 11.0 E9/LRemisol HemeInpatient Clinical Summaryon 31-82-1836Isldlnaeu Clinical SummaryInpatient Clinical Summary [address] [address] Clinical Summary Person Information: Name: ELICEO KENNY Age: 58 Years : 1965 Sex: Male PCP: AMBER CUELLAR DO Marital Status: Single Race: White Ethnicity: Non- or Language: Sami Visit Id: Visit Reason: R93.1 I25.10 I42.9 Speciality: Acuity: Enc Type: Ambulatory/Same Day Surgery Med Service: Surgery Arrival: 08/01/2024 06:51:42 Discharge: Dispo Type: Address: [address] [facility] [phone] Provider Notes: Diagnosis: Problems No Problems Documented [...] Lazcano MD Follow up: With: Address: When: Blanco Lazcano [address] [place], [place] [id number] [phone] Business (1) 08/24/2024 2:45 PM Type Location [facility] Follow Up (FT) FT[facility]Cardiology Clinic 08/24/2024 2:45 PM 08/24/2024 3:00 PM Confirmed Patient Education Information: CV - Cardiovascular PCI Discharge Instructions (CUSTOM)[facility] HospitalIn[facility] Patient Summaryon 57-67-2955Izbntnrkk Patient Summary Inpatient Patient Summary [address] [address] Patient Discharge Instructions PERSON INFORMATION Name: ELICEO KENNY Date of : 1965 Current Date: 08/01/2024 11:19:30 PHYSICIANS Admitting Physician: Blanco Lazcano MD Primary Care Physician: AMBER CUELLAR DO PCP Phone Number: [phone] Comment: Discharge Diagnosis: Condition at Discharge: Improved [...] Follow up: With: Address: When: Bl[place] [address] [phone] Business (1) 08/24/2024 2:45 PM In the event that this physician does not participate in your insurance network, please consult with your insurance company to find a nearby participating provider. Type Location [facility] Follow Up (FT) FT.Cardiology Clinic 08/24/2024 [...] Dose: Comment: MEDICATION L (more content not included)...NormalMemorial Health System Selby General HospitalBMP on 07-18-0979Gcrll gap [Moles/Vol]13 mmol/LNormal6-16[facility] Comment on above:Performed By: #### [id number] #### [facility] [address], [place] [address]Cmodgwz [Mass/Vol]9.6 mg/dLNormal8.9-11.1FGreene Memorial HospitalComment on above:Performed By: #### [id number] #### [facility] [address], [place] [address]Unkrtcdx [Moles/Vol]103 mmol/NWqfxgi225-977VzbhzmMemorial Health System Selby General HospitalComment on above:Performed By: #### [id number] #### [facility] [address] [place], [place] [address]CA6 [Moles/Vol]24 mmol/ZGfwokm16-70GfmcmrMemorial Health System Selby General Hospital Comment on above:Performed By: #### [id number] #### [facility] [address], [place] [address]Mvteysjtec [Mass/Vol]0.7 mg/dLNormal0.5-1.3FGreene Memorial HospitalComment on above:Performed By: #### [id number] #### [facility] [address], [place] [address]Nepbsui [Mass/Vol]120 mg/iZOgoghb80-487EuanokMemorial Health System Selby General HospitalComment on above:Performed By: #### [id number] #### [facility] [address], [place] [address]Rjzsirlow [Moles/Vol]4.2 mmol/LNormal3.5-5.3FGreene Memorial HospitalComment on above:Performed By: #### [id number] #### [facility] [address], [place] [address]Yqwhxh [Moles/Vol]136 mmol/WPdqqio825-333JbrnfwMemorial Health System Selby General HospitalComment on above:Performed By: #### [id number] #### [facility] [address], [place] [address]Fxxo nitrogen [Mass/Vol]11 mg/dLNormal5-21[facility] HospitalComment on above:Performed By: #### [id number] #### [facility] [address], [place] [address]Crrh nitrogen/Creatinine [Mass ratio]16 No JyvhqGiotdt97-22 [facility] HospitalComment on above:Performed By: #### [id number] #### [facility] [address], [place] [address]ZECrt 70-85-3500Ypspqnqoamw peptide B (Bld) [Mass/Vol]12 pg/mL Normal5-80[facility] HospitalComment on above:Performed By: #### [id number] #### [facility] [address], [place] [address]UJTXRWYTEHhnylmr By: SYSTEM SYSTEM on 97-50-9979Mogts gap [Moles/Vol]13 mmol/LNormal6 - 16 mEq/LRemisol ChemCalcium [Mass/Vol]9.6 mg/dL Normal8.9 - 11.1 mg/dLRemisol ChemChloride [Moles/Vol]103 mmol/OWdehrs156 - 111 mmol/LRemisol ChemCholesterol [Mass/Vol]217 mg/tHJdyp373 - 200 mg/dLRemisol Chem Cholesterol in HDL [Mass/Vol]54 mg/dLInvalid Interpretation CodeRemisol Chem Comment on above:Result Comment: '>= 60 LOW RISK' '<= 40 HIGH RISK'Cholesterol in LDL [Mass/Vol]107 mg/dLNormal<=129mg/dLRemisol ChemCholesterol in VLDL [Mass/Vol]77 mg/dLHigh7 - 40 mg/dLRemisol ChemCO2 [Moles/Vol]24 mmol/JAwxsgj19 - 31 mmol/LRemisol ChemCreatinine [Mass/Vol]0.7 mg/dLNormal0.5 - 1.3 mg/dLRemisol ParmsVTP035 mL/min/1.73 w8Myxyic >=59mL/min/1.73 y5Mqrpheb ChemGlucose [Mass/Vol]120 mg/hERpgezl59 - 199 mg/dL Remisol ChemPotassium [Moles/Vol]4.2 mmol/LNormal3.5 - 5.3 mmol/LRemisol Chem Sodium [Moles/Vol]136 mmol/SHwlfvr823 - 145 mmol/LRemisol ChemTriglyceride [Mass/Vol]384 mg/dLHigh<=149mg/dLRemisol ChemUrea nitrogen [Mass/Vol]11 mg/dL Normal5 - 21 mg/dLRemisol ChemUrea nitrogen/Creatinine [Mass ratio]16 mg/mg Fqvava04 - 20Remisol ChemCHEMISTRYOrdered By: Yudy Aldrich on 07-24-2024 Natriuretic peptide B (Bld) [Mass/Vol]12 pg/mLNormal5 - 80 pg/mLFormerly [facility] Lipid Panelon 79-92-5958Jbenhybpqpq [Mass/Vol]217 mg/mGMcdb846-228AqxasaMemorial Health System Selby General HospitalComment on above:Performed By: #### [id number] #### [facility] [address], [place] [address]Nqkpbmzuqot in HDL [Mass/Vol]54 mg/dLInvalid Interpretation [facility] HospitalComment on above:Result Comment: '>= 60 LOW RISK' '<= 40 HIGH RISK'Performed By: #### [id number] #### [facility] Laboratory [address], [place] [address]Adonneoerhv in LDL [Mass/Vol]107 mg/dLNormal<=129[facility] HospitalComment on above:Performed By: #### [id number] #### [facility] [address], [place] [address]Ukpiluainuc in VLDL [Mass/Vol]77 mg/dLHigh7-40[facility] HospitalComment on above:Performed By: #### [id number] #### [facility] [address], [place] [address]Rkgychkdnoyc [Mass/Vol]384 mg/dLHigh<=149[facility] HospitalComment on above:Performed By: #### [id number] #### [facility] [address], [place] [address]qKGUnc 53-72-4338lWJO175 mL/min/1.73 t8Vxesnb>=59[facility] HospitalComment on above:Performed By: #### [id number] #### [facility] [address], [place] [address]YUL 12-LEADon 09-28-9841[address] [address] Electrocardiograph Report Signed Patient: ELICEO KENNY MR#: [id number] : 1965 Acct:[id number] Age/Sex: 58 / M ADM Date: 06/02/24 Loc: [place] 215-[address]: Shaikh Eddie Avila Ordering Physician: Shazia Arias Date of Service: 06/02/24 Procedure(s): ECG 12 lead Accession Number(s): [id number] cc: [facility] Test Date: 2024-06-02 Pat Name: ELICEO KENNY Department: Room: - Gender: Male Manager Special Events: : 1965 Requested By: Order Number: [id number] Peg MD: BUDDY ALEXANDER Measurements Intervals Lead Rate: 100 P: 54 SC: 154 QRS: -32 QRSD: 116 T: 34 QT: 342 QTc: 399 Interpretive Statements 1120 Sinus tachycardia 1570 with occasional ventricular premature complexes 2320 Nonspecific intraventricular conduction delay 7200 Abnormal left axis deviation 9140 abnormal rhythm ECG Electronically Signed On 06-03-2024 6:28:27 EST by BUDDY ALEXANDER Dictated By: Buddy Alexander M.D. Signed By: 06/03/24627 DD/ 18 TD/TT: [employer] Professor:JOCELYNEadiolAlyssa irene, - 06/03/2024 [place] [address] Electrocardiograph Report Signed Patient: ELICEO KENNY MR#: [id number] : 1965 Acct:[id number] Age/Sex: 58 / M ADM Date: 06/02/24 Loc: [place] 215-[address]: Shaikh Eddie Avila Ordering Physician: Shazia Arias Date of Service: 06/02/24 Procedure(s): ECG 12 lead Accession Number(s): [id number] cc: [facility] Test Date: 2024-06-02 Pat Name: ELICEO KENNY Department: Room: - Gender: Male Manager Special Events: : 1965 Requested By: Order Number: [id number] Reading MD: BUDDY ALEXANDER Measurements Intervals Lead Rate: 100 P: 54 SC: 154 QRS: -32 QRSD: 116 T: 34 QT: 342 QTc: 399 Interpretive Statements 1120 Sinus tachycardia 1570 with occasional ventricular premature complexes 2320 Nonspecific intraventricular conduction delay 7200 Abnormal left axis deviation 9140 abnormal rhythm ECG Electronically Signed On 06-03-2024 6:28:27 EST by BUDDY ALEXANDER Dictated By: Buddy Alexander M.D. Signed By: 06/03/24627 DD/ 18 TD/TT: [employer] Professor: AMA [place] 12-LEADOrdered By: Alyssa Radiology on 95-78-3618[facility] Work Phone: ECG 12-LEADon 45-61-1914Neucamwhb Study observation (narrative)[facility]Cl[facility] [...] or concerning lesions Assessment/Plan 1. CAD in wales artery (I25.10: Atherosclerotic heart disease of wales coronary artery without angina pectoris) I would like to obtain a prior cath/PCI report from 2018 from [facility]. For now, we will continue DAPT.Fasting lipids [...] range of 35% with grade 2 mitral regurgitation.[facility] HospitalComment on above: Result Comment: Electronically Signed By: Jaleesa SOLIS, Blanco Montenegro\.br\Date and Time Signed: 05/25/24 11:41 EDTXR Chest 2 Viewson 89-95-2922UMGR changes, parenchymal and pleural-based findings consistent with [...] BY: ELECTRONICALLY SIGNED BY: Demar Garcia MD [facility] HealthcareXR Chest 2 ViewsOrdered By: Demar Garcia on 83-84-7804[facility] Work Phone: xr Chest 2 Viewson 76-49-5810Asxwwnvva Study observation (narrative)[facility] HealthcareAddendum Noteon 33-88-5547Hbzqgnzqvcheo Authentication Interface Message TextAddended by: JOHN COLLIER on: 01/02/2024 09:47 AM Modules accepted: [facility] SystemAddendum Noteon 12-29-2023 Bartender Server Authentication Interface Message TextAddended by: JOHN COLLIER on: 12/29/2023 12:25 PM Modules accepted: [facility] SystemOffice Visit (Cardiology)on 09-19-2438Pguxwl-up visitDiagnoses/Problems Assessed Atherosclerosis of coronary artery of wales heart without angina pectoris (414.01) (I25.10) Essential [...] (Z01.810) Orders Atherosclerosis of coronary artery of wales heart without angina pectoris Renew: Atorvastatin Calcium 80 MG Oral Tablet; TAKE 1 TABLET BY MOUTH EVERYDAY AT BEDTIME Renew: Carvedilol 6.25 MG Oral Tablet; take 1 tablet by mouth twice a day Renew: Clopidogrel Bisulfate 75 MG Oral Tablet; TAKE 1 TABLET BY MOUTH EVERY DAY Atherosclerosis of coronary artery of wales heart without angina pectoris, Preoperative cardiovascular examination [...] we can help. You may also call [phone] financieroNOW for free resources and assistance.; Status:Complete - [...] stress test. [facility], Fax: [phone] Follow up in 9-12 months Chief Complaint [...] N (more content not included)...NormalUH TouchworksTobacco Screening.on 95-88-3535Yltio depression screening assessmentNo-[facility] [employer] 250 DO Work Phone: Tobacco use status CPHSb) [facility] 250 DO Work Phone: CBC AUTO DIFFon 18-90-1898GSBM #0.0 103/ulNormal 0.0-0.1The [facility] HospitalComment on above:Performed By: #### CMREP #### [facility] [address] [place] [address] Dr. Wilda PatelBasophils/100 WBC (Bld)0.5 %Normal0.2-2.0[facility] Comment on above:Performed By: #### CMREP #### [facility] [address] [place] [address] Dr. Wilda Carr #0.1 103/ulNormal0.0-0.7The [facility] HospitalComment on above: Performed By: #### CMREP #### [facility] [address] [address] [address] Wilda Cantuosinophils/100 WBC (Bld)0.8 %Critically low0.9-7.0The [facility] HospitalComment on above:Performed By: #### CMREP #### [facility] [address] [place] [address] Dr. Wilda Canturythrocyte distribution width (RBC) [Ratio]12.3 %Geusce83.0-15.0 The [facility] HospitalComment on above:Performed By: #### CMREP #### [facility] [address] [address] [address] Wilda PatelHematocrit (Bld) [Volume fraction]41.9 %Critically low42.0-54.0 The [facility] HospitalComment on above:Performed By: #### CMREP #### [facility] [address] [place] [address] Dr. Wilda PatelHemoglobin (Bld) [Mass/Vol]14.6 g/cTIyqtho43.0-18.0The [facility] HospitalComment on above:Performed By: #### CMREP #### [facility] [address] [place] [address] Dr. Wilda Candelario #0.03 10e3/ulNormal0.00-0.03The [facility] HospitalComment on above:Performed By: #### CMREP #### [facility] [address] [place] [address] Dr. Wilda Candelario %0.5 %Normal0.0-0.5The [facility] HospitalComment on above: Performed By: #### CMREP #### [facility] [address] [place] [address] Dr. Wilda Pabon #1.7 103/ulNormal1.2-3.8The [facility] HospitalComment on above:Performed By: #### CMREP #### [facility] [address] [place] [address] Dr. Wilda Barrettmphocytes/100 WBC (Bld)26.2 %Qaxjnz78.5-60.0[facility]ermont HospitalComment on above:Performed By: #### CMREP #### [facility] [address] [place] [address] Dr. Wilda SalgueroUAL DIFF REQNONormalThe [facility] HospitalComment on above: Performed By: #### CMREP #### [facility] [address] [place] [address] Dr. Wilda Clark (RBC) [Entitic mass]32.9 toBbypbh00.9-34.0The [facility] HospitalComment on above:Performed By: #### CMREP #### [facility] [address] [place] [address] Dr. Wilda Whitaker (RBC) [Mass/Vol]34.8 g/qFLolwry71.9-35.2The [facility] HospitalComment on above:Performed By: #### CMREP #### [facility] [address] [place] [address] Dr. Wilda Whitaker (RBC) [Entitic vol]94.4 fLCritically high80.0-94.0The [facility] HospitalComment on above:Performed By: #### CMREP #### [facility] [address] [place] [address] Dr. Wilda Georges #0.6 103/ulNormal0.3-0.8The [facility] HospitalComment on above:Performed By: #### CMREP #### [facility] [address] [place] [address] Dr. Wilda Castroocytes/100 WBC (Bld)9.1 %Normal1.7-12.0The [facility] Comment on above:Performed By: #### CMREP #### [facility] [address] [place] [address] Dr. Wilda Berry #4.1 103/ulNormal1.4-6.5The [facility] HospitalComment on above:Performed By: #### CMREP #### [facility] [address] [place] [address] Dr. Wilda Coronadoutrophils/100 WBC (Bld)62.9 %Wygjnt19.0-75.0The [facility] HospitalComment on above:Performed By: #### CMREP #### [facility] [address] [place] [address] Dr. Wilda Acostalet mean volume (Bld) [Entitic vol]10.0 fLNormal9.5-13.5The [facility] HospitalComment on above:Performed By: #### CMREP #### [facility] [address] [place] [address] Dr. Wilda RomeT182 103/ngZdrkql527-061Tgp [facility] HospitalComment on above: Performed By: #### CMREP #### [facility] [address] [place] [address] Dr. Wilda PatelRBC4.44 106/ulCritically low4.70-6.10The [facility] HospitalComment on above:Performed By: #### CMREP #### [facility] [address] [place] [address] Dr. Wilda PatelWBC6.5 103/ulNormal4.0-11.0The [facility] HospitalComment on above: Performed By: #### CMREP #### [facility] [address] [place] [address] Dr. Wilda PatelMAGNESIUMon 44-54-7579Oapfgryov [Mass/Vol]2.4 mg/dLNormal1.8-2.4 The [facility] HospitalComment on above:Performed By: #### CMREP #### [facility] [address] [place] [address] Dr. Wilda PatelPROF CHEM 8 (BAS METB)on 59-35-2996Xdpgc gap [Moles/Vol]12.8 mmol/LNormalThe [facility] HospitalComment on above:Performed By: #### CMREP #### [facility] [address] [place] [address] Dr. Wilda PatelCalcium [Mass/Vol]8.3 mg/dLCritically low8.5-10.1The [facility] HospitalComment on above:Performed By: #### CMREP #### [facility] [address] [place] [address] Dr. Wilda PatelChloride [Moles/Vol]97 mmol/LCritically mvj77-232Bxc [facility] HospitalComment on above:Performed By: #### CMREP #### [facility] [address] [place] [address] Dr. Wilda PatelCO2 [Moles/Vol]24.5 mmol/HSeoyoo39.0-32.0The [facility] Comment on above:Performed By: #### CMREP #### [facility] [address] [address] [address] Wilda PatelCreatinine [Mass/Vol]0.76 mg/dLNormal0.70-1.30The [facility] Centerment on above:Performed By: #### CMREP #### [facility] [address] [address] [address] Astudillo ChangEGFR-AF DJIBOUTIAN>60Normal>=60The [facility] HospitalComment on above:Performed By: #### CMREP #### [facility] [address] [address] [address] Wilda CantuGFR-NON AF DJIBOUTIAN>60Normal>=60The [facility] on above:Performed By: #### CMREP #### [facility] [address] [place] [address] Dr. Wilda PatelGlucose [Mass/Vol]98 mg/aBTugiwv46-919Rjw [facility] Comment on above:Performed By: #### CMREP #### [facility] [address] [address] [address] Wilda PatelPotassium [Moles/Vol]3.3 mmol/LCritically low3.5-5.1The [facility] on above:Performed By: #### CMREP #### [facility] [address] [address] [address] Wilda PatelSodium [Moles/Vol]131 mmol/LCritically zbj207-767Xro [facility] on above:Performed By: #### CMREP #### [facility] [address] [address] [address] Wilda PatelUrea nitrogen [Mass/Vol]10.0 mg/dLNormal7.0-18.0The [facility] Centerment on above:Performed By: #### CMREP #### [facility] [address] [address] [address] Wilda PatelUrea nitrogen/Creatinine [Mass ratio]13.2 mg/mgNormalThe [facility] HospitalComment on above:Performed By: #### CMREP #### [facility] [address] [place] [address] Dr. Wilda HERBERT 3-6on 87-46-7920YT [Catalytic activity/Vol]108 U/L Drptkx28-138JbgMercy Health Clermont HospitalComment on above:Performed By: #### ERUR #### [facility] [address] [place] [address] Dr. Wilda Louise.MB [Mass/Vol]2.69 ng/mLNormal<=3.60[facility] Comment on above:Performed By: #### ERUR #### [facility] [address] [place] [address] Dr. Wilda Mak29.0 pg/mLNormal4.0-76.1The [facility] HospitalComhenry ford [facility] on above:Result Comment: CUT-OFF POINTS HAVE BEEN ESTABLISHED BASED ON THE FOURTH UNIVERSAL DEFINITIONS OF MYOCARDIAL INFARCTION. THE UPPER REFERENCE LIMIT (URL) OF TROPONIN, DEFINED THE 99TH PERCENTILE OF cTnI DISTRIBUTION IN A REFERENCE POPULATION, HAS BEEN CONFIRMED THE DECISION THRESHOLD FOR ID DIAGNOSIS.Performed By: #### ERUR #### [facility] [address] [place] [address] Dr. Wilda Louise [Catalytic activity/Vol]114 U/YDhmxll48-077Fsb [facility] HospitalComment on above:Performed By: #### CMREP #### [facility] [address] [place] [address] Dr. Wilda Louise.MB [Mass/Vol]2.60 ng/mLNormal<=3.60The [facility] Comment on above:Performed By: #### CMREP #### [facility] [address] [place] [address] Dr. Wilda Mak26.7 pg/mLNormal4.0-76.1The [facility] on above:Result Comment: CUT-OFF POINTS HAVE BEEN ESTABLISHED BASED ON THE FOURTH UNIVERSAL DEFINITIONS OF MYOCARDIAL INFARCTION. THE UPPER REFERENCE LIMIT (URL) OF TROPONIN, DEFINED THE 99TH PERCENTILE OF cTnI DISTRIBUTION IN A REFERENCE POPULATION, HAS BEEN CONFIRMED THE DECISION THRESHOLD FOR ID DIAGNOSIS.Performed By: #### CMREP #### [facility] [address] [place] [address] Dr. Wilda Baxter AUTO DIFFon [id number] #0.0 103/ulNormal0.0-0.1The [facility] HospitalComment on above:Performed By: #### ERUR #### [facility] [address] [place] [address] Dr. Wilda PatelBasophils/100 WBC (Bld)0.5 %Normal0.2-2.0The [facility] Comment on above:Performed By: #### ERUR #### [facility] [address] [place] [address] Dr. Wilda Carr #0.0 103/ulNormal0.0-0.7The [facility] HospitalComment on above: Performed By: #### ERUR #### [facility] [address] [place] [address] Dr. Wilda Cantuosinophils/100 WBC (Bld)0.1 %Critically low0.9-7.0The [facility] HospitalComment on above:Performed By: #### ERUR #### [facility] [address] [place] [address] Dr. Wilda Canturythrocyte distribution width (RBC) [Ratio]12.4 %Zwtvln66.0-15.0 [facility]erm[facility] HospitalComment on above:Performed By: #### ERUR #### [facility] [address] [place] [address] Dr. Wilda PatelHematocrit (Bld) [Volume fraction]42.3 %Tvfrro11.0-54.0The [facility] HospitalComment on above:Performed By: #### ERUR #### [facility] [address] [place] [address] Dr. Wilda PatelHemoglobin (Bld) [Mass/Vol]15.0 g/lVFcfkil41.0-18.0[facility]ermont HospitalComment on above:Performed By: #### ERUR #### [facility] [address] [place] [address] Dr. Wilda Candelario #0.01 10e3/ulNormal0.00-0.03The [facility] HospitalComment on above:Performed By: #### ERUR #### [facility] [address] [place] [address] Dr. Wilda Candelario %0.1 %Normal0.0-0.5The [facility] HospitalComment on above: Performed By: #### ERUR #### [facility] [address] [place] [address] Dr. Wilda Pabon #1.7 103/ulNormal1.2-3.8The [facility] HospitalComment on above:Performed By: #### ERUR #### [facility] [address] [place] [address] Dr. Wilda Ramirezhocytes/100 WBC (Bld)22.2 %Dlkrxv13.5-60.0The [facility] HospitalComment on above:Performed By: #### ERUR #### [facility] [address] [place] [address] Dr. Wilda SalgueroUAL DIFF REQNONormalThe [facility] HospitalComment on above: Performed By: #### ERUR #### [facility] [address] [place] [address] Dr. Wilda Clark (RBC) [Entitic mass]33.1 twRprkio38.9-34.0The [facility] HospitalComment on above:Performed By: #### ERUR #### [facility] [address] [place] [address] Dr. Wilda Whitaker (RBC) [Mass/Vol]35.5 g/dLCritically high29.9-35.2The [facility] HospitalComment on above:Performed By: #### ERUR #### [facility] [address] [place] [address] Dr. Wilda Cordon (RBC) [Entitic vol]93.4 rXSdrcqw68.0-94.0The [facility] HospitalComment on above:Performed By: #### ERUR #### [facility] [address] [place] [address] Dr. Wilda Georges #0.7 103/ulNormal0.3-0.8The [facility] HospitalComment on above:Performed By: #### ERUR #### [facility] [address] [place] [address] Dr. Wilda Castroocytes/100 WBC (Bld)9.7 %Normal1.7-12.0The [facility] Comment on above:Performed By: #### ERUR #### [facility] [address] [place] [address] Dr. Wilda Berry #5.2 103/ulNormal1.4-6.5The [facility] HospitalComment on above:Performed By: #### ERUR #### [facility] [address] [place] [address] Dr. Wilda Coronadoutrophils/100 WBC (Bld)67.4 %Koyfch81.0-75.0The [facility] HospitalComment on above:Performed By: #### ERUR #### [facility] [address] [place] [address] Dr. Wilda Acostalet mean volume (Bld) [Entitic vol]9.4 fLCritically low 9.5-13.5The [facility] HospitalComment on above:Performed By: #### ERUR #### [facility] [address] [place] [address] Dr. Wilda PatelPLT171 103/ryMmjuuk889-938Sty [facility] HospitalComment on above: Performed By: #### ERUR #### [facility] [address] [place] [address] Dr. Wilda VenturaC4.53 106/ulCritically low4.70-6.10The [facility] HospitalComment on above:Performed By: #### ERUR #### [facility] [address] [place] [address] Dr. Wilda PatelWBC7.7 103/ulNormal4.0-11.0The [facility] HospitalComment on above: Performed By: #### ERUR #### [facility] [address] [place], [place] [address] Dr. Wilda PatelCT STROKE HEAD WOon [id number] STROKE HEAD WOEXAMINATION: CT STROKE HEAD WO [...] Electronically authenticated by: SUREKHA QUESADA Date: 2022-07-21 22:22[facility]A N[facility] W CONon [id number] NECK WO W CONEXAMINATION: CTA HEAD WO [...] by: TRACI THACKER Date: 2022-07-22 01:01[facility] PrebleCovid-19 PCR (CVDTBH)on 43-95-8095UGYA-CoV-2 (COVID-19) RNA SHREYA+probe Ql (Unsp spec)Not detectedNormalNOT DETECTEDThe [facility] Comment on above:Result Comment: When diagnostic testing [...] for this test is supported by the [place] of Health and Human Service's declaration that [...] longer be used).Performed By: #### LACT #### [facility] [address] [place] [address] Dr. Wilda WeirCARDIO M/2D COMPLETEon [id number] M/2D COMPLETE Patient: ELICEO KENNY Exam Date: 07/22/2022 : 1965 Gender:M Ordering : SHAIKH Mirtha JEAN . Admission #: [id number] Family : DR AARON OCAMPO M.D. Order #: [id number] CLICK HERE TO VIEW EXAM ECHOCARDIOGRAM REPORT [...] Jin M.D. on 07/28/2022 at 10:00[facility] PrebleLIPID PROFILEon 23-23-6587TKBS-HDL RATIO NORMSMercy HospitalComment on above:Result Comment: 3.3 - 4.4 LOW RISK 4.4 - 7.1 AVERAGE RISK 7.1 - 11.0 MODERATE RISK >11.0 HIGH RISKPerformed By: #### CMREP #### [facility] [address] [place] [address] Dr. Wilda PatelCholesterol [Mass/Vol]180 mg/dLNormal<=200[facility] Comment on above:Performed By: #### CMREP #### [facility] [address] [place] [address] Dr. Yilan ChangCholesterol in HDL [Mass/Vol]59 mg/cIFjzips09-21Rom [facility] HospitalComment on above:Performed By: #### CMREP #### [facility] [address] [place] [address] Dr. Wilda PatelCholesterol in LDL [Mass/Vol]74.4 mg/dLKettering Health PrebleComment on above:Performed By: #### CMREP #### [facility] [address] [place] [address] Dr. Wilda Simmons.total/Cholesterol in HDL [Mass ratio]3.1 {ratio} NormalMercy Health Clermont HospitalComhenry ford [facility] on above:Performed By: #### CMREP #### [facility] [address] [place] [address] Dr. Wilda Norwood NORMAL> or = 60 mg/dl - LOW CARDIOVASCULAR RISK <40 mg/dl - HIGH CARDIOVASCULAR RISKKettering Health PrebleComhenry ford kingswood hospital on above:Performed By: #### CMREP #### [facility] [address] [place] [address] Dr. Wilda PatelLDL CALC NORMALSEE BELOWKettering Health PrebleComhenry ford kingswood hospital on above:Result Comment: <100 mg/dl OPTIMAL 100 - 129 mg/dl NEAR OR ABOVE OPTIMAL 130 - 159 mg/dl BORDERLINE HIGH 160 - 189 mg/dl HIGH >190 mg/dl VERY HIGH Performed By: #### CMREP #### [facility] [address] [place] [address] Dr. Wilda PatelTriglyceride [Mass/Vol]233 mg/dLCritically high<=150The [facility] HospitalComhenry ford [facility] on above:Performed By: #### CMREP #### [facility] [address] [place] [address] Dr. Wilda PatelVLDL CALC46.6 mg/dLKettering Health PrebleComment on above: Performed By: #### CMREP #### [facility] [address] [place] [address] Dr. Wilda PatelMAGNESIUMon 07-41-2030Nytffqeer [Mass/Vol]2.3 mg/dLNormal1.8-2.4 The [facility] HospitalComment on above:Performed By: #### BMP, MG #### [facility] [address] [address] [address] Wilda Lobo BRAIN WO CONon 22-63-2731RPS BRAIN WO CONEXAMINATION: MRI BRAIN WO CON, [...] by: CAROLYN REDDY Date: 2022-07-22 15:28[facility] PreblePROF CHEM 8 (BAS METB)on 53-77-3567Rjnnc gap [Moles/Vol]16.0 mmol/LNormalThe [facility] HospitalComment on above:Performed By: #### BMP, MG #### [facility] [address] [place] [address] Dr. Wilda PatelCalcium [Mass/Vol]8.3 mg/dLCritically low8.5-10.1The [facility] HospitalComment on above:Performed By: #### BMP, MG #### [facility] [address] [place] [address] Dr. Wilda PatelChloride [Moles/Vol]100 mmol/YSjixrj23-208NzwMercy Health Clermont Hospital Comment on above:Performed By: #### BMP, MG #### [facility] [address] [place] [address] Dr. Wilda PatelCO2 [Moles/Vol]21.3 mmol/BAbjszb53.0-32.0[facility] Comment on above:Performed By: #### BMP, MG #### [facility] [address] [address] [address] Wilda PatelCreatinine [Mass/Vol]0.70 mg/dLNormal0.70-1.30The [facility] Centerment on above:Performed By: #### BMP, MG #### [facility] [address] [address] [address] Astudillo ChangEGFR-AF DJIBOUTIAN>60Normal>=60The [facility] on above:Performed By: #### BMP, MG #### [facility] [address] [address] [address] Wilda CantuGFR-NON AF DJIBOUTIAN>60Normal>=60The [facility] on above:Performed By: #### BMP, MG #### [facility] [address] [address] [address] Wilda PatelGlucose [Mass/Vol]92 mg/fUNfjzmc27-841Poc [facility] Comment on above:Performed By: #### BMP, MG #### [facility] [address] [address] [address] Wilda PatelPotassium [Moles/Vol]3.3 mmol/LCritically low3.5-5.1The [facility] on above:Performed By: #### BMP, MG #### [facility] [address] [address] [address] Wilda PatelSodium [Moles/Vol]134 mmol/LCritically kxw566-629Xyz [facility] on above:Performed By: #### BMP, MG #### [facility] [address] [address] [address] Wilda PatelUrea nitrogen [Mass/Vol]12.0 mg/dLNormal7.0-18.0The [facility] on above:Performed By: #### BMP, MG #### [facility] [address] [address] [address] Wilda PatelUrea nitrogen/Creatinine [Mass ratio]17.1 mg/mgNormalThe [facility] HospitalComment on above:Performed By: #### BMP, MG #### [facility] [address] [place] [address] Dr. Wilda Wilson 60-86-2703MXX86.049 uIU/mLCritically high0.358-3.740The [facility] HospitalComment on above:Performed By: #### LIPID, TSH #### [facility] [address] [place] [address] Dr. Wilda PatelXR CHEST 1 Von 15-24-0476VW CHEST 1 VEXAMINATION: XR CHEST 1 V HISTORY: Chest pain COMPARISON: Portable chest 06/14/2021 TECHNIQUE: Portable chest FINDINGS: The lung parenchyma is free of consolidation or infiltrate. No pneumothorax or pleural effusion. The cardiac, mediastinal and hilar contours are normal. The visualized osseous structures exhibit no gross abnormality. IMPRESSION: No acute cardiopulmonary abnormality. Electronically authenticated by: CAROLYN TRACY Date: 2022-07-21 22:18NoOhioHealth Berger HospitalXR FOREIGN BODY EYEon [id number] FOREIGN BODY EYEEXAMINATION: XR FOREIGN BODY EYE HISTORY: Foreign body in eye COMPARISON: No relevant comparison available. FINDINGS: ORBITS: Negative for a metallic foreign body. OTHER: Negative. IMPRESSION: No metallic foreign body in the orbits Electronically authenticated by: CAROLYN REDDY Date: 2022-07-22 12:09[facility] PrebleCARDIAC KEON ADMITon 97-48-7556HZ [Catalytic activity/Vol]123 U/KTrvjfy80-246Zds [facility] HospitalComment on above:Performed By: #### CMREP #### [facility] [address] [place] [address] Dr. Wilda Louise.MB [Mass/Vol]3.11 ng/mLNormal<=3.60[facility] Comment on above:Performed By: #### CMREP #### [facility] [address] [place] [address] Dr. Wilda PatelHSTROP23.3 pg/mLNormal4.0-76.1The [facility] HospitalComment on above:Result Comment: CUT-OFF POINTS HAVE BEEN ESTABLISHED BASED ON THE FOURTH UNIVERSAL DEFINITIONS OF MYOCARDIAL INFARCTION. THE UPPER REFERENCE LIMIT (URL) OF TROPONIN, DEFINED THE 99TH PERCENTILE OF cTnI DISTRIBUTION IN A REFERENCE POPULATION, HAS BEEN CONFIRMED THE DECISION THRESHOLD FOR ID DIAGNOSIS.Performed By: #### CMREP #### [facility] [address] [place] [address] Dr. Wilda AllenO136 ng/mLCritically mmal77-80Nam [facility] HospitalComment on above:Performed By: #### CMREP #### [facility] [address] [place] [address] Dr. Wilda VidalC AUTO DIFFon [id number] #0.0 103/ulNormal0.0-0.1The [facility] HospitalComment on above:Performed By: #### ERUR #### [facility] [address] [place] [address] Dr. Wilda PatelBasophils/100 WBC (Bld)0.3 %Normal0.2-2.0[facility] Comment on above:Performed By: #### ERUR #### [facility] [address] [place] [address] Dr. Wilda Carr #0.0 103/ulNormal0.0-0.7The [facility] HospitalComment on above: Performed By: #### ERUR #### [facility] [address] [place] [address] Dr. Wilda Cantuosinophils/100 WBC (Bld)0.1 %Critically low0.9-7.0The [facility] HospitalComment on above:Performed By: #### ERUR #### [facility] [address] [place] [address] Dr. Wilda Canturythrocyte distribution width (RBC) [Ratio]12.3 %Gsuwqq82.0-15.0 The [facility] HospitalComment on above:Performed By: #### ERUR #### [facility] [address] [place] [address] Dr. Wilda PatelHematocrit (Bld) [Volume fraction]47.4 %Ikechq63.0-54.0The [facility] HospitalComment on above:Performed By: #### ERUR #### [facility] [address] [address] [address] Wilda PatelHemoglobin (Bld) [Mass/Vol]16.8 g/nIDpxokz23.0-18.0The [facility] HospitalComment on above:Performed By: #### ERUR #### [facility] [address] [place] [address] Dr. Wilda Candelario #0.04 10e3/ulCritically high0.00-0.03The [facility] Comment on above:Performed By: #### ERUR #### [facility] [address] [place] [address] Dr. Wilda Candelario %0.4 %Normal0.0-0.5The [facility] HospitalComment on above: Performed By: #### ERUR #### [facility] [address] [place] [address] Dr. Wilda Pabon #1.6 103/ulNormal1.2-3.8The [facility] HospitalComment on above:Performed By: #### ERUR #### [facility] [address] [place] [address] Dr. Wilda Ramirezhocytes/100 WBC (Bld)15.7 %Critically low20.5-60.0The [facility] HospitalComment on above:Performed By: #### ERUR #### [facility] [address] [place] [address] Dr. Wilda SalgueroUAL DIFF REQNONormalThe [facility] HospitalComment on above: Performed By: #### ERUR #### [facility] [address] [place] [address] Dr. Wilda Whitaker (RBC) [Entitic mass]32.9 xiFxcbjg09.9-34.0The [facility] HospitalComment on above:Performed By: #### ERUR #### [facility] [address] [place] [address] Dr. Wilda Whitaker (RBC) [Mass/Vol]35.4 g/dLCritically high29.9-35.2The [facility] HospitalComment on above:Performed By: #### ERUR #### [facility] [address] [place] [address] Dr. Wilda WhitakerV (RBC) [Entitic vol]92.9 aZPufnjk61.0-94.0The [facility] HospitalComment on above:Performed By: #### ERUR #### [facility] [address] [place] [address] Dr. Wilda Georges #0.9 103/ulCritically high0.3-0.8The [facility] Comment on above:Performed By: #### ERUR #### [facility] [address] [place] [address] Dr. Wilda Castroocytes/100 WBC (Bld)9.3 %Normal1.7-12.0[facility] Comment on above:Performed By: #### ERUR #### [facility] [address] [place] [address] Dr. Wilda Berry #7.4 103/ulCritically high1.4-6.5ThCincinnati VA Medical Center Comment on above:Performed By: #### ERUR #### [facility] [address] [place] [address] Dr. Wilda Coronadoutrophils/100 WBC (Bld)74.2 %Dsoqgp62.0-75.0The [facility] HospitalComment on above:Performed By: #### ERUR #### [facility] [address] [place] [address] Dr. Wilda Acostalet mean volume (Bld) [Entitic vol]9.6 fLNormal9.5-13.5ThCincinnati VA Medical CenterComment on above:Performed By: #### ERUR #### [facility] [address] [place] [address] Dr. Wilda PatelPLT216 103/doBuokiy480-393Cep [facility] HospitalComment on above: Performed By: #### ERUR #### [facility] [address] [place] [address] Dr. Wilda PatelRBC5.10 106/ulNormal4.70-6.10The [facility] HospitalComment on above:Performed By: #### ERUR #### [facility] [address] [address] [address] Wilda PatelWBC9.9 103/ulNormal4.0-11.0The [facility] HospitalComment on above: Performed By: #### ERUR #### [facility] [address] [place] [address] Dr. Wilda PatelPOINT OF CARE GLUCOSEon 98-07-3046Luvdueq [Mass/Vol]113 mg/dL Critically wmvk43-916Tcc [facility] HospitalComment on above:Performed By: #### ERUR #### [facility] [address] [place] [address] Dr. Wilda Álvarez 14(COMP METB)on 96-45-7109Whikffs [Mass/Vol]3.9 g/dLNormal 3.4-5.0The [facility] HospitalComment on above:Performed By: #### CMREP #### [facility] [address] [place] [address] Dr. Wilda PatelAlbumin/Globulin [Mass ratio]1.0 {ratio}NormalThe [facility] HospitalComment on above:Performed By: #### CMREP #### [facility] [address] [place] [address] Dr. Wilda Prescott [Catalytic activity/Vol]137 U/LCritically hnav91-136Uqz [facility] HospitalComment on above:Performed By: #### CMREP #### [facility] [address] [place] [address] Dr. Wilda Ramirez [Catalytic activity/Vol]16 U/UZbfjvn22-43Whh [facility] HospitalComment on above:Performed By: #### CMREP #### [facility] [address] [place] [address] Dr. Wilda Nelson gap [Moles/Vol]16.7 mmol/LNormalThe [facility] Comment on above:Performed By: #### CMREP #### [facility] [address] [place] [address] Dr. Yilan ChangAST [Catalytic activity/Vol]18 U/TWiqumr80-74Opm [facility] HospitalComment on above:Performed By: #### CMREP #### [facility] [address] [place] [address] Dr. Wilda PatelBilirubin [Mass/Vol]2.1 mg/dLCritically high0.2-1.0The [facility] HospitalComment on above:Performed By: #### CMREP #### [facility] [address] [place] [address] Dr. Wilda PatelCalcium [Mass/Vol]9.2 mg/dLNormal8.5-10.1The [facility] Comment on above:Performed By: #### CMREP #### [facility] [address] [place] [address] Dr. Wilda PatelChloride [Moles/Vol]96 mmol/LCritically flg55-294Hbf [facility] HospitalComment on above:Performed By: #### CMREP #### [facility] [address] [place] [address] Dr. Wilda PatelCO2 [Moles/Vol]23.8 mmol/VVjkivm15.0-32.0The [facility] Comment on above:Performed By: #### CMREP #### [facility] [address] [place] [address] Dr. Wilda PatelCreatinine [Mass/Vol]0.92 mg/dLNormal0.70-1.30The [facility] HospitalComment on above:Performed By: #### CMREP #### [facility] [address] [place] [address] Dr. Wilda CantuGFR-AF DJIBOUTIAN>60Normal>=60The [facility] HospitalComment on above:Performed By: #### CMREP #### [facility] [address] [place] [address] Dr. Wilda CantuGFR-NON AF DJIBOUTIAN>60Normal>=60The [facility] HospitalComment on above:Performed By: #### CMREP #### [facility] [address] [place] [address] Dr. Wilda PatelGlobulin (S) [Mass/Vol]4.0 g/dLNormHolmes County Joel Pomerene Memorial HospitalComment on above:Performed By: #### CMREP #### [facility] [address] [place] [address] Dr. Wilda PatelGlucose [Mass/Vol]112 mg/dLCritically swhl29-026Bts [facility] HospitalComment on above:Performed By: #### CMREP #### [facility] [address] [place] [address] Dr. Wilda PatelPotassium [Moles/Vol]3.5 mmol/LNormal3.5-5.1The [facility] Comment on above:Performed By: #### CMREP #### [facility] [address] [place] [address] Dr. Wilda PatelProtein [Mass/Vol]7.9 g/dLNormal6.4-8.2The [facility] Comment on above:Performed By: #### CMREP #### [facility] [address] [place] [address] Dr. Wilda PatelSodium [Moles/Vol]133 mmol/LCritically zod961-440Kyx [facility] HospitalComment on above:Performed By: #### CMREP #### [facility] [address] [place] [address] Dr. Wilda PatelUrea nitrogen [Mass/Vol]15.0 mg/dLNormal7.0-18.0The [facility] HospitalComment on above:Performed By: #### CMREP #### [facility] [address] [place] [address] Dr. Wilda PatelUrea nitrogen/Creatinine [Mass ratio]16.3 mg/mgNoOhioHealth Berger HospitalComment on above:Performed By: #### CMREP #### [facility] [address] [place] [address] Dr. Wilda PatelPROTIMEon 96-60-6059HGP Coag (PPP) [Relative time]1.00 {INR} NormalThe [facility] HospitalComment on above:Performed By: #### PTT, PT #### [facility] [address] [address] [address] Wilda Barragan GUIDELINESSEE BELOWNoOhioHealth Berger HospitalComment on above:Result Comment: DESIRED INR: 2.0 - 3.0 CONDITIONS NOT LISTED BELOW 2.5 - 3.5 FOR PROSTHETIC HEART VALVE REPLACEMENT 2.5 - 3.5 RECURRENT THROMBOSIS Performed By: #### PTT, PT #### [facility] [address] [address] [address] Wilda Rehman Coag (PPP) [Time]10.8 sNormal9.0-11.6The [facility] Comment on above:Performed By: #### PTT, PT #### [facility] [address] [place] [address] Dr. Wilda Berrios 90-31-0874rDPX Coag (Bld) [Time]28.8 pFaayic08.3-36.2[facility] HospitalComment on above:Performed By: #### PTT, PT #### [facility] [address] [place] [address] Dr. Wilda Mahmood T4 (Free Thyroxine)on 00-43-3895Xhuk T4 [Mass/Vol]0.60 ng/dL Low0.61-1.12Marietta Memorial HospitalComment on above:Performed By: #### [id number], TSH3 wRFLX, T4F #### [facility] [address] [place] [address] USANo Panel InformationOrdered By: Medhat Baltazar on 10-95-675344307011-Dhywfwq Vitamin D Total8.1 ng/eV09-810BfhlmwozxMarietta Memorial HospitalComment on above:VITAMIN D STATUS 25(OH)VITAMIN D RANGE (ng/mL) Deficient <20 Insufficient 20 to <20Ztlqoxaedt04 to 100Reference: Jay MF,Franklyn NC, Isaac FRANCES, et al. Evaluation,treatment, and prevention of vitamin D deficiency; an Endocrine Society clinical practice guideline. JCEM. 2010; 96 (7):1911-30.TSH DL <= 0.005 mIU/L QnOrdered By: Medhat Baltazar on 06-08-2022 TSH Qn28.54 m[IU]/L0.45-5.33[facility] Memorial HospitalThyroid Stim Hormone w/Rflxon 04-98-3454Ezoibnx Stim Hormone w/Rflx28.54 u[iU]/mLHigh 0.45-5.33[facility] HospitalComment on above:Performed By: #### LIPID, TSH3 wRFLX, CBC, OWMK58PV, T4F, CMP, GQZP27SAM, LDLD, A1C WT eA #### [facility] [address] [place] [address] USAThyroxine (T4) free [Mass/volume] in Serum or Plasma Ordered By: Medhat Baltazar on 87-45-4477Awjd T4 [Mass/Vol]0.60 ng/dL0.61-1.12 [facility] HospitalVitamin D 25 Hydroxy Totalon 61-06-0446Ujocjku D 25 Hydroxy Total8.1 ng/xSGks69-834SkpmucycdMarietta Memorial HospitalComment on above:Result Comment: VITAMIN D STATUS 25(OH)VITAMIN D RANGE (ng/mL) Deficient <20 Insufficient 20 to <30 Sufficient 30 to 100 Reference: aJy MF,Franklyn NC, Sanna-Chi FRANCES, et al. Evaluation,treatment, and prevention of vitamin D deficiency; an Endocrine Society clinical practice guideline. JCEM. 2010; 96(7):1911-30. PERFORMED BY: [address] [address] PATHOLOGIST CLOTH TRIMMER HAND MARCO ANTONIO FINLEY M.D.Performed By: #### LIPID, TSH3 wRFLX, CBC, OFYM64KF, T4F, CMP, ZMCD48PXN, LDLD, A1C WT eA #### [facility] [address] [place] [address] USANO MUGA SCAN INJECTIONon 89-85-1713CFC MUGA SCAN INJECTIONMRN: [id number] Patient Name: ELICEO KENNY STUDY: MUGA Performing facility: [facility], [address] [place] [address], [address], [place] [address] [facility] Provider: Darlin Ocampo MD, FACC PCP: Dr. Kelley Supervising provider: Ben Meyers MD INDICATION: Encounter for ICD HISTORY: Gender: M; Age: 56 y/o ; Height: 167.64 cm; Weight: 97.1103233 kg. CAD; High Cholesterol; Previous ID; HTN; COPD; Ischemic cardiomyopathy Currently smoking. Cardiac catheterization on 2018. PTCA on 2018. COMPARISON: Previous nuclear testing completed [id number] Muga at [facility]. ACCESSION NUMBER(S): [id number]; [id number] ORDERING CLINICIAN: AARON OCAMPO TECHNIQUE: The patient [...] was abnormal. Global resting LVEF was globally cmyigvjdgjf08 at %. IMPRESSION: Mild resting right ventricular hypokinesis Abnormalresting left ventricular function. Left ventricular ejection fraction is 35%. No change when compared to prior study Electronically signed by: BEN MEYERS MDWilkes-Barre General HospitalNo Panel Informationon 23-07-8465ZxjcpcQOJackson Medical Center 250 DO Work Phone: A1C with Estimated Average Gluon 04-22-2185Nmiakfn [Mass/Vol]111 mg/dLThe Surgical Hospital at SouthwoodsComment on above: Result Comment: PERFORMED BY: [facility] [address] [place] [id number] PATHOLOGIST CLOTH TRIMMER HAND MARCO ANTONIO FINLEY M.D.Performed By: #### LIPID, TSH3 wRFLX, CBC, YEBN46YD, T4F, CMP, MVZO56AJA, LDLD, A1C [facility] #### [facility] [address] [place] [address] HWAJbE6z (Bld) [Mass fraction]5.5 %Normal4.3-5.6FUniversity Hospitals Ahuja Medical CenterComment on above:Result Comment: Increased risk for diabetes: 5.7 - 6.4 diabetes: >6.4 glycemic control for adults with diabetes: <7.0Performed By: #### LIPID, TSH3 wRFLX, CBC, [id number], T4F, CMP, QLCC52WCQ, LDLD, A1C WTH #### [facility] [address] [place] [address] USABasophils Auto (Bld) [#/Vol]Ordered By: Medhat Baltazar on 03-97-2275Abrnzluhq (Bld) [#/Vol]0.0 10*3/uL0.0-0.2FUniversity Hospitals Ahuja Medical CenterBasophils/100 WBC Auto (Bld)Ordered By: Medhat Baltazar on 03-12-2022 Basophils/100 WBC (Bld)0.6 %.[facility] HospitalBlood hemoglobin measurement (mass/volume)Ordered By: Medhat Baltazar on 29-69-3679Uvnxkmnkan (Bld) [Mass/Vol]14.8 g/dL13.0-17.0[facility] HospitalBlood leukocytes automated count (number/volume)Ordered By: Medhat Baltazar on 61-25-2115YYD (Bld) [#/Vol]5.3 10*3/uL4.5-11.0[facility] Body fluid albumin measurement (mass/volume)Ordered By: Medhat Baltazar on 38-52-7721Htddqut (Body fld) [Mass/Vol]3.7 g/dL3.2-5.5FUniversity Hospitals Ahuja Medical CenterCholesterol [Mass/volume] in Serum or PlasmaOrdered By: Medhat Baltazar on 55-34-1646Bdktzlmytrp [Mass/Vol]157 mg/gY691-441AwbnpfecfMarietta Memorial HospitalComment on above:Chol less than 200 mg/dl low risk Chol 201-239 mg/dl borderline risk Chol 240 mg/dl and greater high riskChol less than 200 mg/dl low riskChol 201- 239 mg/dl borderline riskChol 240 mg/dl and greater high riskCholesterol in LDL Calc [Mass/Vol]Ordered By: Medhat Baltazar on 61-25-0807Roxwcpmpyfa in LDL [Mass/Vol]42 mg/dL0-100M[facility] HospitalComment on above:LDL ATP III CLASSIFICATION LDL less than 100 mg/dL Optimal LDL 100-129 mg/dL Near or above optimal LDL 130-159 mg/dL Borderline high LDL 160-189 mg/dL High LDL greater than 189 mg/dL Very highLDL ATP III CLASSIFICATIONLDL less than 100 mg/dL OptimalLDL 100-129 mg/dL Near or above niuqurfAGL193-716 mg/dL Borderline highLDL 160-189 mg/dL HighLDL greater than 189 mg/dL Very highCholesterol in VLDL Calc [Mass/Vol]Ordered By: Medhat Baltazar on 57-60-5810Dnstncvpabu in VLDL [Mass/Vol]48 mg/dLMarietta Memorial HospitalComplete Blood Count Auto Diffon 04-21-6879Tsckqckqv (Bld) [#/Vol]0.0 10*3/uLNormal0.0-0.2FUniversity Hospitals Ahuja Medical CenterComment on above:Result Comment: PERFORMED BY: [place] [address] PATHOLOGIST CLOTH TRIMMER HAND MARCO ANTONIO FINLEY M.D.Performed By: #### LIPID, TSH3 wRFLX, CBC, KRRD06LW, T4F, CMP, BBIK58DSY, LDLD, A1C WTH eA #### [facility] [address] [place] [address] USABasophils/100 WBC (Bld)0.6 %Normal.M[facility]etta Memorial HospitalComment on above:Performed By: #### LIPID, TSH3 wRFLX, CBC, IFZI60YT, T4F, CMP, AVVN29ASK, LDLD, A1C WTH eA #### [facility] [address] [place] [address] USAEosinophils (Bld) [#/Vol]0.0 10*3/uLNormal0.0-0.45 [facility] HospitalComment on above:Performed By: #### LIPID, TSH3 wRFLX, CBC, DPSG24BB, T4F, CMP, ATUO99SUH, LDLD, A1C WTH eA #### [facility] [address] [place], [place] [id number] USAEosinophils/100 WBC (Bld)0.4 %Normal.[facility] Memorial HospitalComment on above:Performed By: #### LIPID, TSH3 wRFLX, CBC, YHLL95IR, T4F, CMP, NMWK95CDZ, LDLD, A1C WTH eA #### [place] [address] USAErythrocyte distribution width (RBC) [Ratio]13.7 %Normal 12.0-14.8M[facility] Memorial HospitalComment on above:Performed By: #### LIPID, TSH3 wRFLX, CBC, TPFK55VY, T4F, CMP, EANV88EMH, LDLD, A1C WTH eA #### [place] [address] USAHematocrit (Bld) [Volume fraction]43.7 %Fhvizb04.8-50.0 [facility] HospitalComment on above:Performed By: #### LIPID, TSH3 wRFLX, CBC, JZEJ21ER, T4F, CMP, [id number], LDLD, A1C WTH eA #### [place] [address] USAHemoglobin (Bld) [Mass/Vol]14.8 g/iGVcwkwq81.0-17.0 [facility] HospitalComment on above:Performed By: #### LIPID, TSH3 wRFLX, CBC, TUSZ91QZ, T4F, CMP, ZKMB32BOY, LDLD, A1C WTH eA #### [place] [id number] USALymphocytes (Bld) [#/Vol]1.6 10*3/uLNormal1.00-4.8 [facility] HospitalComment on above:Performed By: #### LIPID, TSH3 wRFLX, CBC, AEFF97BB, T4F, CMP, IEMG97HEE, LDLD, A1C WTH eA #### [place] [address] USALymphocytes/100 WBC (Bld)29.2 %Normal.[facility] HospitalComment on above:Performed By: #### LIPID, TSH3 wRFLX, CBC, UFTV48ZJ, T4F, CMP, QZTN13DOT, LDLD, A1C WTH eA #### [facility] [address] [place] [id number] [facility] (RBC) [Entitic mass]34.1 gcAtybww60.5-35.2FUniversity Hospitals Ahuja Medical CenterComment on above:Performed By: #### LIPID, TSH3 wRFLX, CBC, ZUFB58MM, T4F, CMP, HRTG34WGF, LDLD, A1C WTH eA #### [facility] [address] [place] [id number] [facility] (RBC) [Entitic vol]101.1 tOAnkp94.5-101M[facility] Memorial HospitalComment on above:Performed By: #### LIPID, TSH3 wRFLX, CBC, XRRZ28FZ, T4F, CMP, GVFB66IDJ, LDLD, A1C WTH eA #### [place] [address] USAMean Corpuscular HGB Conc33.8 g/oPTvvimp24.5-35.6FUniversity Hospitals Ahuja Medical CenterComment on above:Performed By: #### LIPID, TSH3 wRFLX, CBC, ELGS29HV, T4F, CMP, ZNNA94LCR, LDLD, A1C WTH eA #### [facility] [address] [place] [address] USAMonocytes (Bld) [#/Vol]0.4 10*3/uLNormal0.0-0.8[facility] HospitalComment on above:Performed By: #### LIPID, TSH3 wRFLX, CBC, QYON43RH, T4F, CMP, BBBM80BPT, LDLD, A1C WTH eA #### [facility] [address] [place] [id number] USAMonocytes/100 WBC (Bld)7.0 %Normal.M[facility] Memorial HospitalComment on above:Performed By: #### LIPID, TSH3 wRFLX, CBC, BOXO64UA, T4F, CMP, NYPB94OPA, LDLD, A1C WTH eA #### [facility] [address] [place] [address] USANeutrophils (Bld) [#/Vol]3.3 10*3/uLNormal1.8-7.7FUniversity Hospitals Ahuja Medical CenterComment on above:Performed By: #### LIPID, TSH3 wRFLX, CBC, GYMR68BH, T4F, CMP, HVYS24GEH, LDLD, A1C WTH eA #### [facility] [address] [place] [address] USANeutrophils/100 WBC (Bld)62.8 %Normal.[facility] Memorial HospitalComment on above:Performed By: #### LIPID, TSH3 wRFLX, CBC, ULYG58LU, T4F, CMP, AEFL47ECH, LDLD, A1C WTH eA #### [place] [address] USANucleated RBC/100 WBC (Bld) [Ratio]0.1 %Normal0-0.5 [facility] HospitalComment on above:Performed By: #### LIPID, TSH3 wRFLX, CBC, JXLX65YB, T4F, CMP, IGOG21CSU, LDLD, A1C WTH eA #### [facility] [address] [place] [address] USAPlatelet mean volume (Bld) [Entitic vol]8.7 fLNormal 6.6-10.1FUniversity Hospitals Ahuja Medical CenterComment on above:Performed By: #### LIPID, TSH3 wRFLX, CBC, LXKK19SA, T4F, CMP, IWUB57GVE, LDLD, A1C WTH eA #### [facility] [address] [place] [id number] USAPlatelets (Bld) [#/Vol]218 10*3/sGHbspzu685-934XnooiawkxMarietta Memorial HospitalComment on above:Performed By: #### LIPID, TSH3 wRFLX, CBC, KCRT20MI, T4F, CMP, DOBH94MZD, LDLD, A1C WTH eA #### [facility] [address] [place] [address] USARBC (Bld) [#/Vol]4.33 10*6/uLNormal3.90-5.60[facility] HospitalComment on above:Performed By: #### LIPID, TSH3 wRFLX, CBC, AFQV90AP, T4F, CMP, TBVZ50NVJ, LDLD, A1C WTH eA #### [facility] [address] [place] [address] USAWBC (Bld) [#/Vol]5.3 10*3/uLNormal4.5-11.0M[facility] HospitalComment on above:Performed By: #### LIPID, TSH3 wRFLX, CBC, UOZW86ZL, T4F, CMP, GVGY36MFL, LDLD, A1C WTH eA #### [facility] [address] [place] [address] USAComprehensive Metabolic Panelon 53-01-9481Uquhncs [Mass/Vol]3.7 g/dLNormal3.2-5.5FUniversity Hospitals Ahuja Medical CenterComment on above:Performed By: #### LIPID, TSH3 wRFLX, CBC, PDTA01OI, T4F, CMP, KBMY70GPD, LDLD, A1C WTH eA #### [facility] [address] [place] [address] USAAlbumin/Globulin [Mass ratio]1.3 {ratio}NormalMarietta Memorial HospitalComment on above:Performed By: #### LIPID, TSH3 wRFLX, CBC, EWNL92VC, T4F, CMP, LZDH51PLR, LDLD, A1C WTH eA #### [facility] [address] [place] [address] USAALP [Catalytic activity/Vol]87 U/RCpuicf32-11WzxhsjtbyMarietta Memorial HospitalComment on above:Performed By: #### LIPID, TSH3 wRFLX, CBC, ZFOG24KY, T4F, CMP, ZTTT58ARH, LDLD, A1C WTH eA #### [facility] [address] [place] [address] USAALT [Catalytic activity/Vol]39 U/GWsboca80-13TfqgvytonMarietta Memorial HospitalComment on above:Performed By: #### LIPID, TSH3 wRFLX, CBC, SOGQ98AM, T4F, CMP, KGPT91YKD, LDLD, A1C WTH eA #### [facility] [address] [place] [address] USAAST [Catalytic activity/Vol]23 U/KBxonnz55-91PcfgtekgbMarietta Memorial HospitalComment on above:Performed By: #### LIPID, TSH3 wRFLX, CBC, GLKK75SX, T4F, CMP, JZSO69YAR, LDLD, A1C WTH eA #### [facility] [address] [place] [id number] USABilirubin [Mass/Vol]1.5 mg/dLHigh0.3-1.2FUniversity Hospitals Ahuja Medical CenterComment on above:Result Comment: Samples from patients who have taken Naproxen have shown spurious elevation in Total Bilirubin levels. A metabolite of Naproxen, O-desmethylnaproxen, has been shown to interfere with the Christiana-Pb method for measuring Total Bilirubin.Performed By: #### LIPID, TSH3 wRFLX, CBC, HBJU85MD, T4F, CMP, IBGP02NMX, LDLD, A1C WTH eA #### [place] [id number] USACalcium [Mass/Vol]9.1 mg/dLNormal8.2-10.2FUniversity Hospitals Ahuja Medical CenterComment on above:Performed By: #### LIPID, TSH3 wRFLX, CBC, LBAU05LW, T4F, CMP, PZNP39PAO, LDLD, A1C WTH eA #### [facility] [address] [place] [id number] USAChloride [Moles/Vol]104 mmol/GXwojts83-532OficpnwrtMarietta Memorial HospitalComment on above:Performed By: #### LIPID, TSH3 wRFLX, CBC, MLTE88OT, T4F, CMP, MSZD09VRZ, LDLD, A1C WTH eA #### [facility] [address] [place] [id number] USACO2 [Moles/Vol]20.0 mmol/LLow22.0-30.0[facility] HospitalComment on above:Performed By: #### LIPID, TSH3 wRFLX, CBC, NZNG62SQ, T4F, CMP, RAGW67UII, LDLD, A1C WTH eA #### [place] [id number] USACreatinine [Mass/Vol]0.73 mg/dLNormal0.64-1.27[facility] HospitalComment on above:Performed By: #### LIPID, TSH3 wRFLX, CBC, UPHJ30XQ, T4F, CMP, XWBA97DZM, LDLD, A1C WTH eA #### [place] [address] USAEstimated GFR ( Marisol> 60NoOhio State University Wexner Medical CenterComment on above:Result Comment: GFR estimated reference range: According to KDOQI guidelines, <60 ml/min/1.73m2 is sufficient to diagnose a patient with chronic kidney disease.Performed By: #### LIPID, TSH3 wRFLX, CBC, MYHC55BF, T4F, CMP, VZPV33NXD, LDLD, A1C WTH eA #### [address] [address] USAEstimated GFR (Non- Am> 60NoOhio State University Wexner Medical CenterComment on above:Performed By: #### LIPID, TSH3 wRFLX, CBC, SWDR75KL, T4F, CMP, MEFC44EYM, LDLD, A1C WTH eA #### [address] [address] USAGlobulin (S) [Mass/Vol]2.9 g/dLNoOhio State University Wexner Medical CenterComment on above:Performed By: #### LIPID, TSH3 wRFLX, CBC, BIUN45MN, T4F, CMP, BYSQ83ZVL, LDLD, A1C WTH eA #### [place] [id number] USAGlucose [Mass/Vol]86 mg/eGTecobj66-533FcnsqapaeMarietta Memorial HospitalComment on above:Result Comment: Random Glucose Reference Range is dependent on time and content of last meal. Glucose of more than 200 mg/dL in a nonstressed, ambulatory subject supports the diagnosis of Diabetes Mellitus. ADA recommended reference rangePerformed By: #### LIPID, TSH3 wRFLX, CBC, TSWR36FR, T4F, CMP, MGTS97UWE, LDLD, A1C WTH eA #### [facility] [address] [place] [address] USAPotassium [Moles/Vol]4.1 mmol/LNormal3.5-5.1FUniversity Hospitals Ahuja Medical CenterComment on above:Performed By: #### LIPID, TSH3 wRFLX, CBC, TNQY64PX, T4F, CMP, GCLQ15UZN, LDLD, A1C WTH eA #### [place] [address] USAProtein [Mass/Vol]6.6 g/dLNormal6.1-7.9[facility] HospitalComment on above:Performed By: #### LIPID, TSH3 wRFLX, CBC, TZWS24HS, T4F, CMP, MMWC39BLD, LDLD, A1C WTH eA #### [facility] [address] [place] [address] USASodium [Moles/Vol]133 mmol/NWsw046-956TccfzxcckMarietta Memorial HospitalComment on above:Performed By: #### LIPID, TSH3 wRFLX, CBC, CCAJ76EB, T4F, CMP, WNNS10ZQT, LDLD, A1C WTH eA #### [place] [id number] USAUrea nitrogen [Mass/Vol]6 mg/dLLow9-23M[facility] HospitalComment on above:Performed By: #### LIPID, TSH3 wRFLX, CBC, YVRC50NW, T4F, CMP, IHRP41VVV, LDLD, A1C WTH eA #### [place] [address] USACreatinine and Glomerular filtration rate.predicted panel (S/P/Bld)Ordered By: Medhat Baltazar on 77-17-5662Sishdpkcou [Mass/Vol]0.73 mg/dL0.64-1.27[facility] HospitalEosinophils Auto (Bld) [#/Vol] Ordered By: Medhat Baltazar on 55-70-4112Wzhpjmrgusb (Bld) [#/Vol]0.0 10*3/uL 0.0-0.45[facility] HospitalEosinophils/100 WBC Auto (Bld)Ordered By: Medhat Baltazar on 19-65-5311Xltgyqzcwmk/100 WBC (Bld)0.4 %.[facility] HospitalErythrocyte distribution width Auto (RBC) [Ratio]Ordered By: Medhat Baltazar on 25-88-4133Pmjuwxzbyst distribution width (RBC) [Ratio] 13.7 %12.0-14.8[facility] HospitalEstimated glomerular filtration rate (GFR) non- AmericanOrdered By: Medhat Baltazar on 03-12-2022 GFR/1.73 sq M.predicted among non-blacks MDRD (S/P/Bld) [Vol rate/Area]> 60 mL/MinMarietta Memorial HospitalFolate [Mass/volume] in Serum or Plasma Ordered By: Medhat Baltazar on 05-53-2817Ywcydk [Mass/Vol]7.2 ng/mL>5.9 [facility] HospitalComment on above:Folate reference range: >5.9 ng/ml The WHO technical consultation on folate and vitamin b12 deficiencies has determined that folate concentrations less than 4 ng/ml are considered deficient.Folate reference range: >5.9 ng/mlThe WHO technical consultation on folate and vitamin l05ssashzqfahcc has determined that folate concentrations lessthan 4 ng/ml are considered deficient.Free T4 (Free Thyroxine)on 78-74-9997Nodp T4 [Mass/Vol]0.41 ng/dLLow0.61-1.12[facility] HospitalComment on above:Performed By: #### LIPID, TSH3 wRFLX, CBC, UVZB50CI, T4F, CMP, WIXN27VFV, LDLD, A1C WTH eA #### [facility] [address] [place] [address] USAGlobulin Calc (S) [Mass/Vol]Ordered By: Medhat Baltazar on 74-07-7554Smgjfkrl (S) [Mass/Vol]2.9 g/dLMarietta Memorial Hospital Glucose mean value [Mass/volume] in Blood Estimated from glycated hemoglobin Ordered By: Medhat Baltazar on 34-56-6013Ndyuylu glucose Estimated from glycated hemoglobin (Bld) [Mass/Vol]111 mg/dLMarietta Memorial Hospital Hematocrit Auto (Bld) [Volume fraction]Ordered By: Medhat Baltazar on 13-79-1273Mkpectdqqs (Bld) [Volume fraction]43.7 %38.8-50.0[facility] HospitalHemoglobin A1c percentageOrdered By: Medhat Baltazar on 51-43-9952HfB8c (Bld) [Mass fraction]5.5 %4.3-5.6FUniversity Hospitals Ahuja Medical CenterComment on above:Increased risk for diabetes: 5.7 - 6.4 diabetes: >6.4 glycemic control for adults with diabetes: <7.0Increased risk for diabetes: 5.7 - 6.4diabetes: >6.4glycemic control for adults with diabetes: <7.0LDL Cholesterol Measuredon 66-63-1165XLK Cholesterol Acbypgum67 mg/dLNormal0-100 [facility] HospitalComment on above:Result Comment: LDL ATP III CLASSIFICATION LDL less than 100 mg/dL Optimal LDL 100-129 mg/dL Near or above optimal LDL 130-159 mg/dL Borderline high LDL 160-189 mg/dL High LDL greater than 189 mg/dL Very highPerformed By: #### LIPID, TSH3 wRFLX, CBC, INPI90VZ, T4F, CMP, GIUI00QNN, LDLD, A1C WT eA #### [facility] [address] [place] [address] USALaboratory - Chemistry and Chemistry - challengeOrdered By: Medhat Baltazar on 20-91-1162Hwnifvege (Vitamin B12) [Mass/Vol]376 pg/mL 180-914M[facility] Memorial HospitalLaboratory - Hematology and Cell counts Ordered By: Medhat Baltazar on 23-27-8047Yjzppoujf RBC/100 WBC (Bld) [Ratio]0.1 %0-0.5FUniversity Hospitals Ahuja Medical CenterLipid Panelon 14-56-5187Bixtqnrkymj [Mass/Vol]157 mg/aRPcwnnt322-751QezakbgqlMarietta Memorial HospitalComment on above:Result Comment: Chol less than 200 mg/dl low risk Chol 201-239 mg/dl borderline risk Chol 240 mg/dl and greater high riskPerformed By: #### LIPID, TSH3 wRFLX, CBC, RXCQ43KP, T4F, CMP, QXQZ94RJO, LDLD, A1C WTH eA #### [facility] [address] [place] [address] USACholesterol in HDL [Mass/Vol]66 mg/vAPobazs40-42UdxlfnjzlMarietta Memorial HospitalComment on above:Result Comment: HDL CHOL ATP-III CLASSIFICATION Cardiovascular Risk HDL > or equal to 60 mg/dL LOW HDL < 40 mg/dL HIGHPerformed By: #### LIPID, TSH3 wRFLX, CBC, AWRM69EK, T4F, CMP, GGIY69BPC, LDLD, A1C WTH eA #### [facility] [address] [place] [address] USACholesterol.total/Cholesterol in HDL [Mass ratio]2.4 {ratio}Normal<5.0[facility] HospitalComment on above:Performed By: #### LIPID, TSH3 wRFLX, CBC, VIWX18QS, T4F, CMP, MVNM48DZS, LDLD, A1C WTH eA #### [facility] [address] [place] [address] USALDL Cholesterol,Rjoaosaaqn45 mg/dLNormal0-100[facility] HospitalComment on above:Result Comment: LDL ATP III CLASSIFICATION LDL less than 100 mg/dL Optimal LDL 100-129 mg/dL Near or above optimal LDL 130-159 mg/dL Borderline high LDL 160-189 mg/dL High LDL greater than 189 mg/dL Very highPerformed By: #### LIPID, TSH3 wRFLX, CBC, REKY70GS, T4F, CMP, YPQO21XJF, LDLD, A1C WTH eA #### [facility] [address] [place] [address] USATriglyceride w/Mprnrk145 mg/nQPrpx78-218IxcravyujMarietta Memorial HospitalComment on above:Result Comment: TRIG ATP III CLASSIFICATION TRIG less than 150 mg/dL Normal TRIG 150-199 mg/dL Borderline high TRIG 200-500 mg/dL High TRIG greater than 500 mg/dL Very high Standard traceable to the Center for Disease Conrtrol and Prevention (CDC) test method.Performed By: #### LIPID, TSH3 wRFLX, CBC, BDAX44CL, T4F, CMP, RSRC06ROG, LDLD, A1C [facility] eA #### [facility] [address] [place] [id number] USAVLDL KRTATPALWAL94 mg/dLNormalMarietta Memorial HospitalComment on above:Performed By: #### LIPID, TSH3 wRFLX, CBC, DDGT79QJ, T4F, CMP, ONJO22OQU, LDLD, A1C [facility] eA #### [facility] [address] [place] [id number] USALymphocytes Auto (Bld) [#/Vol]Ordered By: Medhat Baltazar on 51-95-0885Weucgvomtkn (Bld) [#/Vol]1.6 10*3/uL1.00-4.8M[facility] Memorial HospitalLymphocytes/100 WBC Auto (Bld)Ordered By: Medhat Baltazar on 47-27-5876Lbwrbwbrnzn/100 WBC (Bld)29.2 %.[facility] Auto (RBC) [Entitic mass]Ordered By: Medhat Baltazar on 99-88-7917WMA (RBC) [Entitic mass]34.1 pg27.5-35.2FRiverside Methodist HospitalHC Auto (RBC) [Mass/Vol]Ordered By: Medhat Baltazar on 06-32-9606WHNU (RBC) [Mass/Vol]33.8 g/dL32.5-35.6FRiverside Methodist HospitalV Auto (RBC) [Entitic vol] Ordered By: Medhat Baltazar on 58-81-5875VNG (RBC) [Entitic vol]101.1 fL 83.5-101[facility] HospitalMonocytes Auto (Bld) [#/Vol]Ordered By: Medhat Baltazar on 71-03-2605Wrrriyvub (Bld) [#/Vol]0.4 10*3/uL0.0-0.8 [facility] HospitalMonocytes/100 WBC Auto (Bld)Ordered By: Medhat Baltazar on 17-86-4355Ylorkjobp/100 WBC (Bld)7.0 %.[facility] HospitalNeutrophils Auto (Bld) [#/Vol]Ordered By: Medhat Baltazar on 59-10-9870Sjwrgwbpbvj (Bld) [#/Vol]3.3 10*3/uL1.8-7.7FUniversity Hospitals Ahuja Medical CenterNeutrophils/100 WBC Auto (Bld)Ordered By: Medhat Baltazar on 03-12-2022 Neutrophils/100 WBC (Bld)62.8 %.[facility] HospitalNo Panel InformationOrdered By: Medhat Baltazar on [id number]-Nszbgwj Vitamin D Total 7.9 ng/rK77-555PpstblbzhMarietta Memorial HospitalComment on above:VITAMIN D STATUS 25(OH)VITAMIN D RANGE (ng/mL) Deficient <20 Insufficient 20 to <30 Sufficient 30 to 100 Reference: Franklyn Joseph, Isaac FRANCES, et al. Evaluation,treatment, and prevention of vitamin D deficiency; an Endocrine Society clinical practice guideline. JCEM. 2010; 96(7):1911-30.VITAMIN D STATUS 25(OH)VITAMIN D RANGE (ng/mL) Deficient <20 Insufficient 20 to <88Bquaqvcjup22 to 100Reference: Franklyn Joseph, Isaac FRANCES, et al. Evaluation,treatment, and prevention of vitamin D deficiency; an Endocrine Society clinical practice guideline. JCEM. 2010; 96(7):1911-30.Estimated GFR ()> 60 mL/MinMarietta Memorial HospitalComment on above: GFR estimated reference range: According to KDOQI guidelines, <60 ml/min/1.73m2 is sufficient todiagnose a patient with chronic kidney disease.Pharmacy Creatinine Clearance (ChemN/AFUniversity Hospitals Ahuja Medical CenterPlatelet mean volume Auto (Bld) [Entitic vol]Ordered By: Medhat Baltazar on 03-12-2022 Platelet mean volume (Bld) [Entitic vol]8.7 fL6.6-10.1FUniversity Hospitals Ahuja Medical CenterPlatelets Auto (Bld) [#/Vol]Ordered By: Medhat Baltazar on 03-12-2022 Platelets (Bld) [#/Vol]218 10*3/kJ429-322HckyfdhqpMarietta Memorial Hospital Protein [Mass/volume] in Serum or PlasmaOrdered By: Medhat Baltazar on 36-81-7613Lqygups [Mass/Vol]6.6 g/dL6.1-7.9[facility] HospitalRBC Auto (Bld) [#/Vol]Ordered By: Medhat Baltazar on 72-68-0290CZJ (Bld) [#/Vol] 4.33 10*6/uL3.90-5.60[facility]inton [facility] Hospitalerum or plasma alanine aminotransferase measurement without P-5'-P (enzymatic activiOrdered By: Medhat Baltazar on 78-03-1630ILB No additional P-5'-P [Catalytic activity/Vol] 39 U/Y36-75MfmktcepyClinton Memorial Hospitalerum or plasma albumin/globulin mass ratioOrdered By: Medhat Baltazar on 14-69-8655Gdrjoxg/Globulin [Mass ratio]1.3 {ratio}[facility] Hospitalerum or plasma alkaline phosphatase measurement (enzymatic activity/volume)Ordered By: Medhat Baltazar on 48-62-0540YIT [Catalytic activity/Vol]87 U/N86-03NacryppsyClinton Memorial Hospitalerum or plasma aspartate aminotransferase measurement (enzymatic activity/volume)Ordered By: Medhat Baltazar on 72-81-9636TTE [Catalytic activity/Vol]23 U/M50-94OmivgeanqClinton Memorial Hospitalerum or plasma calcium measurement (mass/volume)Ordered By: Medhat Baltazar on 98-55-9210Shvupgs [Mass/Vol]9.1 mg/dL8.2-10.2FProMedica Flower Hospitalerum or plasma chloride measurement (moles/volume)Ordered By: Medhat Baltazar on 03-12-2022 Chloride [Moles/Vol]104 mmol/O20-884LdkllwypnClinton Memorial Hospitalerum or plasma cholesterol in LDL measurement (mass/volume)Ordered By: Medhat Baltazar on 55-46-8229Zughqzuiyne in LDL [Mass/Vol]64 mg/dL0-100[facility] HospitalComment on above:LDL ATP III CLASSIFICATION LDL less than 100 mg/dL Optimal LDL 100-129 mg/dL Near or above optimal LDL 130-159 mg/dL Borderline high LDL 160-189 mg/dL High LDL greater than 189 mg/dL Very highLDL ATP III CLASSIFICATIONLDL less than 100 mg/dL OptimalLDL 100-129 mg/dL Near or above jagzshkZRM329-263 mg/dL Borderline highLDL 160-189 mg/dL HighLDL greater than 189 mg/dL Very highSerum or plasma glucose measurement (mass/volume)Ordered By: Medhat Baltazar on 03-12-2022 Glucose [Mass/Vol]86 mg/fJ99-102WdgvcbskmMarietta Memorial HospitalComment on above:ADA recommended reference range Random Glucose [...] (HDL) cholesterol measurementOrdered By: Medhat Baltazar on 12-71-0243Czmnrcoxxwz in HDL [Mass/Vol]66 mg/bY03-35JlkpgcwbcMarietta Memorial HospitalComment on above:HDL CHOL ATP-III CLASSIFICATION Cardiovascular Risk HDL > or equal to 60 mg/dL LOW HDL < 40 mg/dL HIGHHDL CHOL ATP-III CLASSIFICATION Cardiovascular RiskHDL > or equal to 60 mg/dL LOWHDL < 40 mg/dL HIGHSerum or plasma potassium measurement (moles/volume)Ordered By: Medhat Baltazar on 88-37-4789Pjxkbmnrq [Moles/Vol]4.1 mmol/L3.5-5.1FProMedica Flower Hospitalerum or plasma sodium measurement (moles/volume)Ordered By: Medhat Baltazar on 96-46-8481Wfqwpm [Moles/Vol]133 mmol/V316-218UsycytzmnClinton Memorial Hospitalerum or plasma total bilirubin measurement (mass/volume)Ordered By: Medhat Baltazar on 12-56-6513Zjhllaull [Mass/Vol]1.5 mg/dL0.3-1.2FUniversity Hospitals Ahuja Medical Center Comment on above:Samples from patients who have taken Naproxen have shown spurious elevation in Total Bilirubin levels. A metabolite of Naproxen, O- desmethylnaproxen, has been shown to interfere with the Jenlakisha-Pb method for measuring Total Bilirubin.Serum or plasma total carbon dioxide measurement (moles/volume)Ordered By: Medhat Baltazar on 45-47-7444ED6 [Moles/Vol]20.0 mmol/L22.0-30.0[facility] Hospitalerum or plasma total cholesterol/high density lipoprotein (HDL) cholesterol mass ratOrdered By: Medhat Baltazar on 50-34-9392Imsrwqfwliz.total/Cholesterol in HDL [Mass ratio] 2.4 {ratio}<5.0Cl[facility] Hospitalerum or plasma urea nitrogen measurement (mass/volume)Ordered By: Medhat Baltazar on 29-16-5322Cjqa nitrogen [Mass/Vol]6 mg/dL9-23M[facility] HospitalTS DL <= 0.005 mIU/L Qn Ordered By: Medhat Baltazar on 40-13-6484OWQ Qn44.00 m[IU]/L0.45-5.33[facility] HospitalThyroid Stim Hormone w/Rflxon 47-99-0740Nwgbmag Stim Hormone w/Rflx44.00 u[iU]/mLHigh0.45-5.33[facility] Comment on above:Performed By: #### LIPID, TSH3 wRFLX, CBC, MKFD39AJ, T4F, CMP, XWTJ20OBE, LDLD, A1C WTH eA #### [facility] [address] [place] [address] USAThyroxine (T4) free [Mass/volume] in Serum or Plasma Ordered By: Medhat Baltazar on 04-86-8417Jxtq T4 [Mass/Vol]0.41 ng/dL0.61-1.12 [facility] HospitalTriglyceride [Mass/volume] in Serum or Plasma Ordered By: Medhat Baltazar on 72-47-7721Mcvecqdaxpmp [Mass/Vol]243 mg/nL60-432 [facility] HospitalComment on above:TRIG ATP III CLASSIFICATION TRIG less [...] and Prevention (CDC) test method.Vit. B12/Folate Profileon 58-92-8705Cwmebmelj (Vitamin B12) [Mass/Vol]376 pg/mSLqpaov170-055FqibgecgoMarietta Memorial HospitalComment on above:Performed By: #### LIPID, TSH3 wRFLX, CBC, DXFG52HS, T4F, CMP, ZTPA68PPR, LDLD, A1C WTH eA #### [facility] [address] [place] [address] USAFolate7.2 ng/mLNormal>5.9[facility] Comment on above:Result Comment: Folate reference range: >5.9 ng/ml The WHO technical consultation on folate and vitamin b12 deficiencies has determined that folate concentrations less than 4 ng/ml are considered deficient.Performed By: #### LIPID, TSH3 wRFLX, CBC, DLQP81FP, T4F, CMP, NBRA03HAU, LDLD, A1C WTH eA #### [facility] [address] [place] [address] USAVitamin D 25 Hydroxy Totalon 65-59-5363Oqclwui D 25 Hydroxy Total7.9 ng/aKPiy58-408GknkhlesdMarietta Memorial HospitalComment on above:Result Comment: VITAMIN D STATUS 25(OH)VITAMIN D RANGE (ng/mL) Deficient <20 Insufficient 20 to <30 Sufficient 30 to 100 Reference: Jay MF,[place] NC, Isaac FRANCES, et al. Evaluation,treatment, and prevention of vitamin D deficiency; an Endocrine Society clinical practice guideline. JCEM. 2010; 96(7):1911-30. PERFORMED BY: [facility] [address] [place] [address] PATHOLOGIST CLOTH TRIMMER HAND MARCO ANTONIO FINLEY M.D.Performed By: #### LIPID, TSH3 wRFLX, CBC, DQQA90DT, T4F, CMP, UGOR86FKC, LDLD, A1C WTH eA #### [facility] [address] [place] [address] USAOffice Visit (Cardiology)on 90-10-7087Vewwwc-up visit Diagnoses/Problems Assessed Atherosclerosis of coronary artery of wales heart without angina pectoris (414.01) (I25.10) Essential [...] week Orders Atherosclerosis of coronary artery of wales heart without angina pectoris Renew: Aspirin Low [...] we can help. You may also call 8-157-SXAJ-NOW for free resources and assistance.; Status:Complete - [...] Ondansetro (more content not included)...NormalUH TouchworksTobacco Screening.on 53-25-7298Gcuhv depression screening assessmentNo-[facility] EloiseHart [address] DO Work Phone: Tobacco use status CPHSb) NoM-[facility] 250 DO Work Phone: CB AUTO DIFFon 53-89-1782SUDW #0.0 103/ulNormal 0.0-0.1The [facility] HospitalComment on above:Performed By: #### LACT #### [facility] [address] [place] [address] Dr. Wilda Yousifphils/100 WBC (Bld)0.3 %Normal0.2-2.0The [facility] Comment on above:Performed By: #### LACT #### [facility] [address] [place] [address] Dr. Wilda Carr #0.0 103/ulNormal0.0-0.7The [facility] HospitalComment on above: Performed By: #### LACT #### [facility] [address] [address] [address] Wilda Cantuosinophils/100 WBC (Bld)0.3 %Critically low0.9-7.0The [facility] Medical Centerment on above:Performed By: #### LACT #### [facility] [address] [place] [address] Dr. Wilda Canturythrocyte distribution width (RBC) [Ratio]13.5 %Noqjpe47.0-15.0 The [facility] HospitalComment on above:Performed By: #### LACT #### [facility] [address] [place] [address] Dr. Wilda PatelHematocrit (Bld) [Volume fraction]42.5 %Gtwuzj87.0-54.0The [facility] HospitalComment on above:Performed By: #### LACT #### [facility] [address] [place] [address] Dr. Wilda PatelHemoglobin (Bld) [Mass/Vol]14.5 g/tDLcgzre10.0-18.0The [facility] Centerment on above:Performed By: #### LACT #### [facility] [address] [place] [address] Dr. Wilda Candelario #0.05 10e3/ulCritically high0.00-0.03The [facility] Comment on above:Performed By: #### LACT #### [facility] [address] [place] [address] Dr. Wilda Candelario %0.5 %Normal0.0-0.5The [facility] Medical Centerment on above: Performed By: #### LACT #### [facility] [address] [place] [address] Dr. Wilda BarrettMPH #1.9 103/ulNormal1.2-3.8The [facility] HospitalComment on above:Performed By: #### LACT #### [facility] [address] [place] [address] Dr. Wilda Barrettmphocytes/100 WBC (Bld)17.6 %Critically low20.5-60.0The [facility] HospitalComment on above:Performed By: #### LACT #### [facility] [address] [place] [address] Dr. Wilda Moore DIFF REQNONormalThe [facility] HospitalComment on above: Performed By: #### LACT #### [facility] [address] [place] [address] Dr. Wilda Whitaker (RBC) [Entitic mass]33.1 ltXgocnh31.9-34.0The [facility] HospitalComment on above:Performed By: #### LACT #### [facility] [address] [place] [address] Dr. Wilda Whitaker (RBC) [Mass/Vol]34.1 g/pGFdtqvo34.9-35.2The [facility] HospitalComment on above:Performed By: #### LACT #### [facility] [address] [place] [address] Dr. Wilda Whitaker (RBC) [Entitic vol]97.0 fLCritically high80.0-94.0[facility]ermont HospitalComment on above:Performed By: #### LACT #### [facility] [address] [place] [address] Dr. Wilda Georges #0.9 103/ulCritically high0.3-0.8ThCincinnati VA Medical Center Comment on above:Performed By: #### LACT #### [facility] [address] [place] [address] Dr. Wilda aCstroocytes/100 WBC (Bld)8.0 %Normal1.7-12.0[facility] Comment on above:Performed By: #### LACT #### [facility] [address] [place] [address] Dr. Wilda Berry #7.9 103/ulCritically high1.4-6.5ThCincinnati VA Medical Center Comment on above:Performed By: #### LACT #### [facility] [address] [place] [address] Dr. Wilda Coronadoutrophils/100 WBC (Bld)73.3 %Bezuju20.0-75.0[facility]erm[facility] HospitalComment on above:Performed By: #### LACT #### [facility] [address] [address] [address] Wilda Acostalet mean volume (Bld) [Entitic vol]9.3 fLCritically low 9.5-13.5The [facility] HospitalComment on above:Performed By: #### LACT #### [facility] [address] [place] [address] Dr. Wilda PatelPLT261 103/ozKcmtze661-161Evb [facility] HospitalComment on above: Performed By: #### LACT #### [facility] [address] [place] [address] Dr. Wilda PatelRBC4.38 106/ulCritically low4.70-6.10The [facility] HospitalComment on above:Performed By: #### LACT #### [facility] [address] [place] [address] Dr. Wilda PatelWBC10.8 103/ulNormal4.0-11.0The [facility] HospitalComment on above:Performed By: #### LACT #### [facility] [address] [place] [address] Dr. Wilda PatelCT ABD/PELV W CONon 99-07-8610HA ABD/PELV W CONCT ABDOMEN AND PELVIS WITH [...] by: CLAIR RAMIREZ Date: 2021-07-29 19:33[facility] PrebleCULTURE BLOODon 63-73-8821Wnnxsyhhetv examination of blood, cultureCulture Observations: NO GROWTH AT 5 DAYS.NormalMercy Health Clermont HospitalComment on above:Performed By: #### CMREP #### [facility] [address] [place] [address] Dr. Wilda PatelMicroscopic examination of blood, cultureCulture Observations: NO GROWTH AT 5 DAYS.NormalThe [facility] HospitalComment on above:Performed By: #### CMREP #### [facility] [address] [place] [address] Dr. Wilda PatelCovid-19 PCR (CVDMIDDLESEX [facility])on 10-05-3276YPQS-CoV-2 (COVID-19) RNA SHREYA+probe Ql (Unsp spec)Not detectedNormalNOT DETECTEDMercy Health Clermont Hospital Comment on above:Result Comment: This test is not yet approved or cleared by the [place] FDA. When there are no FDA-approved or cleared tests available, and other criteria are met, FDA can make tests available under an emergency access mechanism called an Emergency Use Authorization (EUA). The EUA for this test is supported by the [place] of Health and Human Service's (HHS's) declaration [...] consistent with SARS-CoV-2.Performed By: #### CVDTBH #### [facility] [address] [place] [address] Dr. Wilda Holden URINE PROFILEon 63-64-4926Bcnnlihxj Ql (U)NegativeNormal NEGATIVEMercy Health Clermont HospitalComment on above:Performed By: #### ERUR #### [facility] [address] [place] [address] Dr. Wilda Walton (U)CLEARNormalCLEARMercy Health Clermont HospitalComment on above: Performed By: #### ERUR #### [facility] [address] [place] [address] Dr. Wilda Calderon (U)YELLOWNormalYELLOWMercy Health Clermont HospitalComment on above: Performed By: #### ERUR #### [facility] [address] [place] [address] Dr. Wilda Klein micrscopic examination will be performed if indicated. NormalMercy Health Clermont HospitalComment on above:Performed By: #### ERUR #### [facility] [address] [place] [address] Dr. Wilda PatelGlucose Ql (U)NegativeNormalNEGATIVEMercy Health Clermont HospitalComment on above:Performed By: #### ERUR #### [facility] [address] [place] [address] Dr. Wilda PatelHemoglobin Ql (U)NegativeNormalNEGATIVEFairfield Medical Center on above:Performed By: #### ERUR #### [facility] [address] [address] [address] Wilda Morocho Ql (U)NegativeNormalNEGATIVEMercy Health Clermont HospitalComment on above:Performed By: #### ERUR #### [facility] [address] [place] [address] Dr. Wilda PatelLEUKOCYTESNegativeNormalNEGATIVEMercy Health Clermont HospitalComment on above:Performed By: #### ERUR #### [facility] [address] [place] [address] Dr. Wilda Ortiztrite Ql (U)NegativeNormalNEGATIVEThe [facility] HospitalComment on above:Performed By: #### ERUR #### [facility] [address] [place] [address] Dr. Wilda PatelpH (U)5.5 [pH]Normal5-9The [facility] HospitalComment on above: Performed By: #### ERUR #### [facility] [address] [place] [address] Dr. Wilda PatelSPEC GRAVITY>=1.183Hstyzsma4.005-<=1.025The [facility] Comment on above:Performed By: #### ERUR #### [facility] [address] [place] [address] Dr. Wilda Duff PROTEINNegativeAlbuquerqueNEGATIVE/ TRACEMercy Health Clermont Hospital Comment on above:Performed By: #### ERUR #### [facility] [address] [place] [address] Dr. Wilda Hoang MICRO INDNOT INDICATEDKettering Health PrebleComment on above:Performed By: #### ERUR #### [facility] [address] [place] [address] Dr. Wilda Kaurbilinogen Qn (U)0.2 {Maria Luisa'U}/dLNormal0.2 - 1.0Mer[facility] Clerm[facility] HospitalComment on above:Performed By: #### ERUR #### [facility] [address] [place] [address] Dr. Wilda TolliverCTATE/LACTIC ACIDon 99-28-6795Okopmey [Moles/Vol]2.2 mmol/L Critically high0.7-2.0The [facility] HospitalComment on above:Performed By: #### LACT #### [facility] [address] [address] [address] Wilda Álvarez 14(COMP METB)on 29-31-6618Lzizbdy [Mass/Vol]2.9 g/dL Critically low3.5-5.0The [facility] HospitalComment on above:Performed By: #### CMP #### [facility] [address] [address] [address] Wilda PatelAlbumin/Globulin [Mass ratio]0.7 {ratio}NormalThe [facility] HospitalComment on above:Performed By: #### CMP #### [facility] [address] [place] [address] Dr. Wilda FragaP [Catalytic activity/Vol]137 U/LCritically hrsx50-427Mul [facility] HospitalComment on above:Performed By: #### CMP #### [facility] [address] [place] [address] Dr. Wilda FragaT [Catalytic activity/Vol]17 U/LCritically wuu03-09Jvf [facility] HospitalComment on above:Performed By: #### CMP #### [facility] [address] [place] [address] Dr. Wilda Nelson gap [Moles/Vol]14.8 mmol/LNormalThe [facility] Comment on above:Performed By: #### CMP #### [facility] [address] [place] [address] Dr. Wilda PatelAST [Catalytic activity/Vol]15 U/LCritically sgr27-30Ctc [facility] HospitalComment on above:Performed By: #### CMP #### [facility] [address] [address] [address] Wilda PatelBilirubin [Mass/Vol]0.7 mg/dLNormal0.2-1.3The [facility] Comment on above:Performed By: #### CMP #### [facility] [address] [address] [address] Wilda PatelCalcium [Mass/Vol]8.8 mg/dLNormal8.4-10.2The [facility] Comment on above:Performed By: #### CMP #### [facility] [address] [address] [address] Wilda PatelChloride [Moles/Vol]97 mmol/LCritically wwz57-157Lba [facility] HospitalComment on above:Performed By: #### CMP #### [facility] [address] [address] [address] Wilda PatelCO2 [Moles/Vol]26.9 mmol/IJqtbaz18.0-30.0The [facility] Comment on above:Performed By: #### CMP #### [facility] [address] [place] [address] Dr. Wilda PatelCreatinine [Mass/Vol]0.95 mg/dLNormal0.66-1.25The [facility] HospitalComment on above:Performed By: #### CMP #### [facility] [address] [address] [address] Astudillo ChangEGFR-AF DJIBOUTIAN>60Normal>=60The [facility] HospitalComment on above:Performed By: #### CMP #### [facility] [address] [place] [address] Dr. Wilda CantuGFR-NON AF DJIBOUTIAN>60Normal>=60The [facility] HospitalComment on above:Performed By: #### CMP #### [facility] [address] [place] [address] Dr. Wilda PatelGlobulin (S) [Mass/Vol]4.2 g/dLNormalThe [facility] HospitalComment on above:Performed By: #### CMP #### [facility] [address] [place] [address] Dr. Wilda PatelGlucose [Mass/Vol]97 mg/xQMzuvwx47-544Tow [facility] Comment on above:Performed By: #### CMP #### [facility] [address] [place] [address] Dr. Wilda PatelPotassium [Moles/Vol]3.7 mmol/LNormal3.4-5.0The [facility] Comment on above:Performed By: #### CMP #### [facility] [address] [place], [place] [address] Dr. Wilda PatelProtein [Mass/Vol]7.1 g/dLNormal6.1-8.2The [facility] Comment on above:Performed By: #### CMP #### [facility] [address] [place], [place] [address] Dr. Wilda PatelSodium [Moles/Vol]135 mmol/LCritically fxf425-846Mox [facility] HospitalComment on above:Performed By: #### CMP #### [facility] [address] [place], [place] [address] Dr. Wilda PatelUrea nitrogen [Mass/Vol]11.0 mg/dLNormal9.0-20.0The [facility] HospitalComment on above:Performed By: #### CMP #### [facility] [address] [place] [address] Dr. Wilda Cobos nitrogen/Creatinine [Mass ratio]11.6 mg/mgNormalThe [facility] HospitalComment on above:Performed By: #### CMP #### [facility] [address] [place], [place] [address] Dr. Wilda PatelTobaccesequiel Screening.on 34-26-5963Nbprgor use status CPb) [facility] [address] DO Work Phone: Vital Signs Date TimeVital SignValuePerforming ZjhobetrnIwpxecux64-90-1736 12:48-0400Body baekaa507.6 cmTimothy [place] DO Work Phone: noms Ghwdhsjtzl24-26-3813 12:48-0400Body mass index (BMI) [Ratio]41.32 kg/i6Dqxznwt [place] DO Work Phone: noms Xoybavsbgn77-34-2600 12:48-0400Body temperature 97.39 [degF]Amber [place] DO Work Phone: [phone]08-13-2025 12:48-0400Body yxhyyz465.12 kgTimothy [place] DO Work Phone: [phone] [place], [place] [address]Vapzlncwrl32-55-4550 12:48-0400Diastolic blood xzpdfovz22 mm[Hg]Amber [place] DO Work Phone: [phone] [place], [place] 7405908-13-2025 12:48-0400Heart hfmw502 /min Amber [place] DO Work Phone: [phone] [place], [place] 7405908-13-2025 12:48-2453ThI9% (BldA) [Mass fraction]95 %Amber [place] DO Work Phone: [phone] [place], [place] 7405908-13-2025 12:48-0400Systolic blood ioyabcmk990 mm[Hg]Amber [place] DO Work Phone: [phone] [place], [place] [address]405905-09-2025 13:26-0400Blood Pressure LocationThomas Johnson [facility]05-09-20[facility] 13:26-0400 Diastolic blood kzqroxej08 mm[Hg]Juan Francisco Johnson [facility]05-09-2025 13:26-0400Heart bfwi398 /minThomas Johnson [facility]05-09-2025 13:26-0400 Respiratory rate22 /minThomas Johnson [facility]05-09-2025 13:26-9353JnM5% (BldA) [Mass fraction]96 %Juan Francisco Johnson [facility]05-09-2025 13:26-0400 Systolic blood ezdximxj495 mm[Hg]Juan Francisco Johnson [facility]01-30-2025 13:32-0500 Diastolic blood nxpxwroh16 mm[Hg]Blanco Lazcano [facility]01-30-2025 13:32-0500Heart rate98 /minMikhail Chingus [address] [place], [place] [address]01-30-2025 13:32-0500 Respiratory rate18 /minMikhail Kirnus [address] [place], [place] [address]01-30-2025 13:32-0945CrE2% (BldA) [Mass fraction]98 %Blanco Kirnus [address] [place], [place] [address]01-30-2025 13:32-0500 Systolic blood zslxkqsy140 mm[Hg]Blanco Kirnus [address] [place], [place] [address]01-07-2025 07:28-0500Blood Pressure LocationMikhail Kirnus [address] [place], [place] [address]01-07-2025 07:28-0500 Diastolic blood cunljrfi75 mm[Hg]Blanco Kirnus [address] [place], [place] [address]01-07-2025 07:28-0500Heart cxxb075 /minMikhail Kirnus [address] [place], [place] [address]01-07-2025 07:28-0500 Respiratory rate18 /minMikhail Kirnus [address] [place], [place] [address]01-07-2025 07:28-3635PfR9% (BldA) [Mass fraction]97 %Blanco Kirnus [address] [place], [place] [address]01-07-2025 07:28-0500 Systolic blood vagqsvqt054 mm[Hg]Blanco Kirnus [address] [place], [place] [address]10-30-2024 13:37-0400 Diastolic blood uuyrtlnm23 mm[Hg]Blanco Kirnus [address] [place], [place] [address]10-30-2024 13:37-0400Heart yfzz206 /minMikhail Kirnus [address] [place], [place] [address]10-30-2024 13:37-0400 Respiratory rate16 /minMikhail Kirnus [facility]10-30-2024 13:37-3399GbZ4% (BldA) [Mass fraction]96 %Blanco Lazcano [facility]10-30-2024 13:37-0400 Systolic blood skafizgq010 mm[Hg]Blanco Lazcano [facility]10-02-2024 11:00-0400Body xkoazh653.6 cmLeanne Edvin DO Work Phone: [facility] HospitalRioffgvple24-86-2976 11:00-0400Body mass index (BMI) [Ratio]40.35 kg/w2Esacjw Edvin DO Work Phone: [facility] HospitalFvonlewgtt75-82-5704 11:00-0400Body .4 kgLeanne Edvin DO Work Phone: [facility] HospitalKbxhkavyke79-42-8147 11:00-0400Diastolic blood lqaldyim75 mm[Hg]Misti Edvin DO Work Phone: [facility] HospitalToyocgaufr83-73-5637 11:00-0400Heart rate84 /min Misti Edvin DO Work Phone: [facility] HospitalRszghkdafm33-85-4136 11:00-9127JzA4% (BldA) [Mass fraction]93 %Misti Edvin DO Work Phone: [facility] HospitalMvafrnwxor76-75-4027 11:00-0400Systolic blood gaqcvihu979 mm[Hg]Misti Edvin DO Work Phone: [facility] HospitalXllewraffc48-75-0174 15:27-0400Body .6 cmTimothy [place] DO Work Phone: noMer[facility] JoplinWpsysouadn56-56-6660 15:27-0400Body mass index (BMI) [Ratio]38.09 kg/w4Jfibtkt [place] DO Work Phone: noMercy Hospital JoplinYgimldrgtp35-09-3858 15:27-0400Body temperature 96.49 [degF]Amber [place] DO Work Phone: [facility] HospitalJwfmvthxch65-32-0624 15:27-0400Body sqlxek739.05 kgTimothy [place] DO Work Phone: NOMercy Hospital JoplinMuzjxvecwh70-86-5277 15:27-0400Diastolic blood yhkehimd54 mm[Hg]Amber [place] DO Work Phone: [facility] HospitalQlqispaqxn54-67-5031 15:27-0400Heart udgv056 /min Amber [place] DO Work Phone: [facility] HospitalZkjzlcxncl58-52-9086 15:27-0096JiU0% (BldA) [Mass fraction]95 %Amber [place] DO Work Phone: noMercy Hospital JoplinPdzornymzy12-30-8858 15:27-0400Systolic blood hqcfixbx422 mm[Hg]Amber [place] DO Work Phone: noMercy Hospital JoplinTrpfypspmw09-27-3651 14:09-0500Body arzeke769.64 cmReferring Provider [facility] [facility] DO Work Phone: [phone]440 14:09-0500Body mass index (BMI) [Ratio]34.7 kg/l5Pkbtgmata Provider [facility] [address] DO Work Phone: 1(773) 466-782201-25-2023 14:09-0500Body surface area Derived from formula2.06 d4Ncyusqphs Provider [facility] [address] DO Work Phone: [phone] 14:09-0500Body uxvmon87.52 kgReferring Provider [facility] [address] DO Work Phone: 1(502) 468-102501-25-2023 14:09-0500Diastolic blood logjwdmw52 mm[Hg] Referring Provider [facility] 250 DO Work Phone: 1(276) 204-891701-25-2023 14:09-0500Heart rate84 /minReferring Provider [facility] [address] DO Work Phone: 1(873) 193-584301-25-2023 14:09-0500Systolic blood flxxulnz369 mm[Hg] Referring Provider [facility] [address] DO Work Phone: 1(662) 877-468506-15-2022 15:27-0400Body dkfqbi896.64 cmReferring Provider [facility] [address] DO Work Phone: [phone]-3772 15:27-0400Body mass index (BMI) [Ratio] 35.02 kg/z9Sjcwashlh Provider [facility] [address] DO Work Phone: [phone] 15:27-0400Body surface area Derived from formula2.07 r3Phdpsfkdu Provider [facility] 250 DO Work Phone: 1([phone])[phone]-0457 15:27-0400Body .43 kgReferring Provider [facility] 250 DO Work Phone: [phone] 15:27-0400Diastolic blood wppfyxkq28 mm[Hg] Referring Provider [facility] [address] DO Work Phone: [phone])[phone]-9745 15:27-0400Heart rate84 /minReferring Provider [facility] [address] DO Work Phone: 1(711)[phone]-2015 15:27-0400Systolic blood nbwmiglt644 mm[Hg] Referring Provider [facility] [address] DO Work Phone: [phone])[phone]-1804 11:50-0400Body bakdmc827.6 cmTrauma RutnudyyVslonVxnewk53-86-5476 11:50-0400Body mass index (BMI) [Ratio]35.19 kg/m2 Trauma WycoiztxFiheoJnxpds12-63-3237 11:50-0400Body mcieqa57.88 kgTrauma RdiiqrlsFwdadSyqwwx55-77-5295 11:50-0400Diastolic blood lxuqzsnb96 mm[Hg]Trauma EgwlvvegSzmspXmfgai24-14-1924 11:50-0400Heart wqke534 /minTrauma Resident XjdgnRlhonc49-52-9618 11:50-0400Respiratory rate18 /minTrauma Resident VtaeaVdeyvh81-49-7678 11:50-0400Systolic blood hnkyudtz585 mm[Hg]Trauma Resident LnbvpEkfrta32-76-4242 11:05-0500Body haledi576.64 cmReferring Provider [facility] 250 DO Work Phone: [phone] 11:05-0500Body mass index (BMI) [Ratio] 35.83 kg/k2Nnozqlygi Provider [facility] [address] DO Work Phone: [phone]-0018 11:05-0500Body surface area Derived from formula2.09 e3Bzhfrfzaj Provider [facility] 250 DO Work Phone: 1(363) 189-493312-13-2021 11:05-0500Body htwygz732.7 kgReferring Provider [facility] 250 DO Work Phone: [phone] 11:05-0500Diastolic blood zrosheom22 mm[Hg] Referring Provider [facility] 250 DO Work Phone: [phone] 781-498112-13-2021 11:05-0500Heart rate96 /minReferring Provider [facility] 250 DO Work Phone: 1([phone] 865-682912-13-2021 11:05-0500Systolic blood zyvkevtb541 mm[Hg] Referring Provider [facility] [address] DO Work Phone: Encounters Encounter DateEncounter TypeCare ProviderFacilityStart: 05-24-2025 End: 05-30-3097eczhmjkhvbUvhqsq A SteinFacility:FTMCStart: 03-07-2025 End: 03-50-7867Dlmmta flowsheetAmber Cuellar DO Work Phone: [facility] 230Start: 03-07-2025 End: 50-21-1604Airmwb flowsheetTimclair Gomez [place] DO Work Phone: noms [facility] 230Start: 03-07-2025 End: 74-09-1493Gmhoop outpatient visit 25 minutesTimothy Patricia [place] DO Work Phone: noms [facility] 230Comment on above: Chronic obstructive pulmonary disease, unspecified COPD type (HCC) (Primary Dx); Acquired hypothyroidism ; Impaired fasting blood sugar; Primary hypertensionStart: 03-07-2025 End: 39-41-4869aajkcjccniTKMHUZK L CUTLERNot AvailableStart: 02-22-2025 End: 48-04-2861tlympzenlyEzhoyd A ElizabethFacility:FTMCStart: 02-21-2025 End: 42-48-1998ZgvsvdMimwfw Leah Edvin DO Work Phone: noms [place] OtolaryngologyComment on above:Chronic obstructive pulmonary disease, unspecified COPD type (HCC)Start: 12-01-2024 End: 68-57-8312ggpkrqnzodDtayzl A SteinFacility:FTMCStart: 12-01-2024 End: 57-50-5576Edvxjux encounter procedureThomas A Elizabeth [facility] Start: 08-24-2024 End: 46-20-1217aqvvmaibzuPX Blanco LazcanoFacility:FTMCStart: 08-24-2024 End: 75-14-3314Qifkrns encounter procedureBlanco Lazcano [facility] Start: 08-01-2024 End: 25-30-3845Inhrkupcv to same day surgery centerBlanco Lazcano [facility] Start: 08-01-2024 End: 67-93-9760ojkrwkysrjHnhfkts D KirnusFacility:FTMCStart: 07-24-2024 End: 01-18-0188fixwngauusMkatajy D KirmadiFacility:FTMCStart: 07-24-2024 End: 22-91-3672Osinixy encounter procedureBlanco Lazcano [facility] Start: 06-20-2024 End: 60-72-8851arhbwszfdxKA Blanco VerdinmadiFacility:FTMCStart: 06-20-2024 End: 40-21-4667Jetkqew encounter procedureBlanco Lazcano [facility] Start: 06-02-2024 End: 08-37-8790Ijmezzaes Result EncounterShazia MCKEON Work Phone: noms External Department UnsolicitedStart: 06-02-2024 End: 06-28-4342Akukruakh Result EncounterShazia MCKEON Work Phone: noms External Department UnsolicitedStart: 05-24-2024 End: 61-48-1258njjbkkfuqjEBLU NONEFacility:FTMCStart: 05-24-2024 End: 74-92-3522Hwchpqo encounter procedureBlanco Lazcano [facility] Start: 04-26-2024 End: 18-79-8105Oiziia flowsChandler Lynn Edvin DO Work Phone: noms PULMStart: 04-26-2024 End: 25-61-3859Kngrsj flowsChandler Lynn Edvin DO Work Phone: noms SH PULMStart: 04-26-2024 End: 14-61-2246Pjtoah outpatient new 45 minutesMisti Pardo DO Work Phone: noms SH PULMComment on above:Chronic obstructive pulmonary disease, unspecified COPD type (CMS/HCC) (Primary Dx); COPD with acute exacerbation (CMS/HCC); HypersomnolenceStart: 04-26-2024 End: 16-30-7615azvzxqcbplEDZPCA K STRACKNot AvailableStart: 01-12-2024 End: 09-46-5385Puspha outpatient visit 25 minutesAmber Patricia Polo DO Work Phone: noMS [facility] 230Comment on above:COPD with acute exacerbation (CMS/HCC) (Primary Dx)Start: 28-16-4197jisdzrpxdzDOSXHLP PROVIDER [facility]: 12-03-2022 End: 97-82-3786Brb-admission [facility] Start: 79-00-4411Xv RenewalReferring Provider Unknown [facility] 250 DO Work Phone: Start: 09-01-8144BSX, Provider: Aaron Ocampo, Status: Pen, Time: 2:00 PMReferring Provider [facility] 250 DO Work Phone: Start: 87-62-9818Szvjxq outpatient visit 25 minutes Referring Provider [facility] 250 DO Work Phone: Start: 66-85-6679kfyhkwbmvwGVO UNKNOWNFacility: Start: 08-17-2022 End: 25-18-7023Lyziac outpatient visit 25 minutesVanessa Wilson MD Work Phone: [facility] Trauma SurgeryComment on above:Attention to ileostomy (HCC) (Primary Dx); Chronic obstructive pulmonary disease, unspecified COPD type (HCC); Ischemic cardiomyopathy; S/P colostomy takedownStart: 00-12-4908Nb RenewalReferring Provider [facility] 250 DO Work Phone: Start: 02-54-2111Wn RenewalReferring Provider Unknown [facility] 250 DO Work Phone: Start: 97-61-3952Jfyxhrraa encounterVanessa [place] MD Work Phone: [facility] Trauma SurgeryStart: 07-22-2022 End: 72-15-8368grfvzddmckMEQZDM SERVICES FAMILYFacility:O3Obynv: 06-08-2022 End: 85-52-2382cnthwssviiOpeyadodu LowrieFacility:[facility] Hospitaltart: 06-08-2022 End: 59-72-9638lhycyxdcmbGV Medhat Baltazar Work Phone: [facility] Work Phone: Start: 06-08-2022 End: 40-64-3603Kpqkbkki ReferredDO Medhat Baltazar Work Phone: [facility] HealthStart: 73-88-8141jjrsoossbgFOHJYW SAMSAFacility:X7Ejwnd: 05-28-2022 End: 60-77-4392xdfyyiqgakPnyhd N. MorrisFacility:[facility] Hospitaltart: 05-28-2022 End: 71-82-2613Htfjtda encounter procedureDO Adventism Jimyaugust Work Phone: [facility]-Sleep LabStart: 01-25-6176Zxoej UpdateReferring Provider [facility] [facility] DO Work Phone: Start: 07-18-4334Eyidkml encounter procedureReferring Provider UnknownO[facility] [address] [place] Work Phone: Start: 91-41-3255crtsitzdhsMnAraceli Ocampo II Facility:[id number]: 03-12-2022 End: 64-17-3324nibanzlzyoDefwqgblo LowrieFacility:[facility] Hospitaltart: 03-12-2022 End: 36-17-6606Jtpdkswe ReferredDO Carmine Jackson Work Phone: [facility] ServicesStart: 46-84-7755Vjbevd outpatient visit 25 minutesReferring Provider UnknownPRESBYTER[facility]ERNorth [place] [facility] 250 DO Work Phone: Start: 47-71-9083xnsffjwrnlEqfnjxeEusebio Ocampo II Facility:[id number]: 12-30-2021 End: 56-34-4004Zuoyig outpatient visit 15 minutesTrauma Surgery Resident [facility] Trauma SurgeryComment on above:Attention to ileostomy (HCC) (Primary Dx); Body mass index (BMI) 35.0-35.9, adultStart: 18-32-7670Aqghkoxkk encounter Jina HolgerSumma Health [facility] Trauma SurgeryStart: 78-73-8852Io RenewalReferring Provider [facility] 250 DO Work Phone: Start: 87-85-7726Xy RenewalReferring Provider Unknown [facility] 250 DO Work Phone: Start: 61-51-1961Va RenewalReferring Provider Unknown [facility] 250 DO Work Phone: Start: 07-29-2021 End: 84-68-1194nxgwcsltkeKYNGGV SERVICES FAMILYFacility:T4Mxjgx: 97-16-7091Pt RenewalReferring Provider [facility] 250 DO Work Phone: Start: 70-42-0997In RenewalReferring Provider Unknown [facility] 250 DO Work Phone: Start: 13-25-7555Uqokzg outpatient visit 25 minutes Referring Provider [facility] 250 DO Work Phone: Start: 77-78-0581UWCVIEz PCP [facility] [place] 250 DO Work Phone: Start: 29-66-4119Ah RenewalNo PCP [facility] 250 DO Work Phone: Start: 77-17-4034Jgouzzq encounter procedureAARON RAMSEYNFacility:1532Start: 44-94-8202Pmspfcn encounter procedurePATY GUERRA Facility:[id number] encounter statusReferring Provider Unknown-[facility] 250 DO Work Phone: Procedures DateProcedureProcedure DetailPerforming ClinicianStart: 02-07-7782Lfakajnzafoz coronary interventionMiedenilsonfreda Verdinmadi Comment on above:PCI of CircumflexStart: 38-03-4902BRH -LEADD.[facility] Hugo MCKEON Work Phone: Start: 12-27-2023 End: 19-49-4215Ronnvhchgxnw telephone assessment minIleostomy in place (HCC)Acute Care Surgery ResidentComment on above:Ileostomy in place (HCC) (Primary Dx); CAD S/P percutaneous coronary angioplasty; Chronic obstructive pulmonary disease, unspecified COPD type (HCC); Chronic congestive heart failure, unspecified heart failure type (HCC)Start: 11-57-6317NtzlkqrtjtrMdxio ResidentStart: 69-51-5411Pqxlf colonoscopyNo PCP None Comment on above:CCF;AppendectomyNo PCP NoneAppendectomyRyan Connie ColostomyRyan Connie Heart structure (body structure)Nabil Rosales Operative procedure on ankleNo PCP NonePercutaneous transluminal coronary angioplastyNo PCP NoneStructure of left lower leg (body structure)Nabil Rosales Plan of Treatment DateCare ActivityDetailAuthorStart: 75-09-5959Upnxdgbge for malignant neoplasm of colonMetroHealthStart: 09-01-4621Yjelh panelCholesterolMetroHealthStart: 09-11-2025 End: 01-35-0892Acgicum encounter aimzvetma09/17/2026 2:00 PM EST Office Visit AMA [facility] [address] [place] [address] Amber Cuellar, [address] [place] [address] [facility] 230 Start: 14-17-6376Wqubzlgtj vaccinationInfluenza Vaccine (#1)[facility] Start: 03-07-2025 End: 39-69-4302AAZ W Auto Differential panel - BloodCBC and differential Lab Routine Impaired fasting blood sugar Primary hypertension Expected: 03/07/2025, Expires: 03/07/2026NOAK HealthcareComment on above:Expected: 03/07/2025, Expires: 03/07/2026Start: 03-07-2025 End: 81-27-4236Eyfntxapzqvax metabolic 2000 panel - Serum or PlasmaComprehensive metabolic panel Lab Routine Impaired fasting blood sugar Primary hypertension Expected: 03/07/2025, Expires: 03/07/2026NOAK HealthcareComment on above: Expected: 03/07/2025, Expires: 03/07/2026Start: 03-07-2025 End: 02-13-4610Vfueufzqvc A1c/Hemoglobin.total in BloodHemoglobin A1c Lab Routine Impaired fasting blood sugar Expected: 03/07/2025, Expires: 03/07/2026 [facility] HealthcareComment on above:Expected: 03/07/2025, Expires: 03/07/2026Start: 03-07-2025 End: 36-46-1589Fvrse 1996 panel - Serum or PlasmaLipid panel Lab Routine Impaired fasting blood sugar Primary hypertension Expected: 03/07/2025, Expires: 03/07/2026NOAK HealthcareComment on above:Expected: 03/07/2025, Expires: 03/07/2026Start: 03-07-2025 End: 90-05-6177Prwwttdhoplx/Creatinine panel in random UrineMicroalbumin / creatinine urine ratio Lab Routine Impaired fasting blood sugar Primary hypertensionExpected: 03/07/2025, Expires: 03/07/2026NOAK HealthcareComment on above:Expected: 03/07/2025, Expires: 03/07/2026Start: 03-07-2025 End: 10-22-9604Srrnozdkpqu [Units/volume] in Serum or PlasmaTSH Lab Routine Acquired hypothyroidism Expected: 03/07/2025, Expires: 03/07/2026[facility] Comment on above:Expected: 03/07/2025, Expires: 03/07/2026Start: 03-07-2025 End: 40-00-3646Dvampudbr (T4) free [Mass/volume] in Serum or PlasmaT4, free Lab Routine Acquired hypothyroidism Expected: 03/07/2025 (Approximate), Expires: 03/07/2026[facility] Work Phone: Comment on above:Expected: 03/07/2025 (Approximate), Expires: 03/07/2026Start: 03-07-2025 End: 81-50-6091Tvzigkg encounter xecrxfdyy41/13/2025 1:20 PM EDT Office Visit [facility] [address] [place] [address] Amber Cuellar, DO [address] [place] [address] [facility] 230Comment on above:ArrivedStart: 07-17-2024 End: 32-08-0577Jyxigom encounter fpftefeaz80/23/2024 11:00 AM EST Office Visit [facility] [address] [place] [address] Amber Cuellar L, DO [address] [place] [address] [facility] 230Start: 07-04-2024 End: 37-84-6555Ofbwjcb encounter xrasbhpxt89/10/2024 2:15 PM EST Office Visit [facility] [address] [place] [address] Misti Pardo, DO [address] [place] [address] NOMS PULMStart: 04-26-2024 End: 72-48-3079Lvtecet encounter procedureNOMS PULMComment on above:COPD with acute exacerbation ([facility])Start: 10-27-8549Daybnvdyw vaccinationInfluenza Vaccine (#1)[facility] HealthcareStart: 97-97-2949NRU, Provider: Aaron Ocampo, Status: Pen, Time: 1:20 PMFUV, Provider: Aaron Ocampo, Status: Pen, Time: 1:20 [facility] Workstreamer-[place] 250 DO Work Phone: Start: 15-28-4277UUVPE-19 Vaccine ( season) COVID-19 Vaccine ( season)MetroHealthStart: 42-14-0794ALEJEK NUC, Provider: [place] HHVI NUCLEAR 01,[id number], Status: Pen, Time: 12:00 PMSTRESS NUC, Provider: [place] HHVI NUCLEAR 01,[id number], Status: Pen, Time: 12:00 PM [facility] Workstreamer-[place] 250 DO Work Phone: Start: 33-59-2008FHC, Provider: Aaron Ocampo, Status: Pen, Time: 2:00 PMFUV, Provider: Aaron Ocampo, Status: Pen, Time: 2:00 PMO[facility] WorkstreamerHart 250 DO Work Phone: Start: 08-17-2022 End: 04-83-0359Qqssmmv encounter mpnilraog95/23/2023 Office Visit Tra[facility] Trauma SurgeryStart: 12-57-8479Wnauf metabolic 2000 panel - Serum or PlasmaBasic Metabolic PanelMetroHealthStart: 39-20-6148Opdgpbdbvj measurement Basic Metabolic PanelMetroHealthStart: 46-03-2117Wacffujhq vaccinationInfluenza Vaccine (#1)MetroHealthStart: 47-18-2077OAKJ, Provider: [place] HHVI NUCLEAR 01,[id number], Status: Pen, Time: 2:00 PMMUGA, Provider: [place] HHVI NUCLEAR 01,[id number], Status: Pen, Time: 2:00 PMO[facility] WorkstreamerPersado 250 DO Work Phone: Start: 23-84-8295MGB, Provider: Aaron Ocampo, Status: Pen, Time: 3:30 PMFUV, Provider: Aaron Ocampo, Status: Pen, Time: 3:30 PMMP-[facility] WorkstreamerPersado 250 DO Work Phone: Start: 12-30-2021 End: 25-97-3308Lbcxort encounter /07/2022 Office Visit Trauma [facility] Trauma SurgeryStart: 92-07-6140BST, Provider: Aaron Ocampo, Status: Pen, Time: 8:00 AMFUV, Provider: Aaron Ocampo, Status: Pen, Time: 8:00 AMMP-[facility] 250 DO Work Phone: Start: 45-98-1630Uratyvw stimulating hormone measurementTSHMetroHealthStart: 69-79-6072Dbaxkzgteyaw vaccinationMetroHealth Start: 22-10-0816Evjyznlzfus of occult blood in single stool specimenFIT MetroHealthStart: 54-04-1027Bpmqpxkn (RZV) Vaccine (1 of 2)Shingles (RZV) Vaccine (1 of 2)MetroHealthStart: 99-65-4921Cxrjtugls for malignant neoplasm of colonMetroHealthStart: 44-36-0743Sfrgf panelCholesterolMetroHealthStart: 06-38-5886Cmngaolzp A (HAV) Vaccine (optional start 19+ years)Hepatitis A (HAV) Vaccine (optional start 19+ years)MetroHealthStart: 01-42-9262Hxtvxkafo B vaccinationHepatitis B (HBV) Vaccine (1 of 3 - 19+ 3-dose series)[facility] Start: 91-50-0459Toqveox + diphtheria + acellular pertussis vaccine (product) Tdap BoosterMetroHealthStart: 60-49-9488WUHQU-19 Vaccine (#1)COVID-19 Vaccine (#1)MetroHealthStart: 36-05-2475ONOIC-19 Vaccine (#1)COVID-19 Vaccine (#1) MetroHealthStart: 34-35-5365Pwtpligod aortic aneurysm screeningPulmonary Function TestingMetroHealthStart: 53-92-2747Peuppucw FractionEjection Fraction MetroHealthStart: 53-48-9456Zhblzoqcu Function TestingPulmonary Function Testing MetroHealthStart: 67-15-3727Jtkshpogs for malignant neoplasm of colonMetroMercy Health St[facility] Immunizations Immunization DateImmunizationNotesCare DwuourpbWwbebxbt31-93-4018rrupryueh virus vaccine, unspecified formulationTimothy [place] DO Work Phone: NOMS Kntgegmfnk11-55-7968unkmqlnnx, high dose seasonal, preservative-freeReferring Provider [place] [address] DO Work Phone: [phone]uvcth virus vaccine, unspecified formulationTimothy [place] DO Work Phone: NOMS Xupuygxibw99-30-4054DtydfufMtkkqxg Caridad MyyuuWjrerx13-61-9586sombeecqk, seasonal, injectableNo PCP [place] [address] DO Work Phone: [phone]zkyef virus vaccine, unspecified formulationVanessa [place] MD Work Phone: [phone]uGcyihx86-70-7154zhhguestolbf polysaccharide vaccine, 23 valentNo PCP JrxjBejfzEvxwns92-79-6388Nosrukmua, injectable, Madin [place] Canine Kidney, preservative free, quadrivalentNo PCP [place] [address] DO Work Phone: [phone]lxwm virus vaccine, unspecified formulationReferring Provider [place] [address] DO Work Phone: [phone]rkmcbz, injectable, quadrivalent, preservative freeNo PCP NoneAs[facility] Payers DatePayer CategoryPayerPolicy [id number] [id number] 2.16840.1.919998.3.57[id number] 2.840.1.855663.3.57[id number] 2.16840.1.423582.3.579.[id number] 2.840.1.925438.3.579.2.11746-95-9316Yzmpapk9570328 2.840.1.177944.3.579.2.61675-24-0242Iqmwfue8334371 2.840.1.378309.3.579.2.[id number] 2.840.1.098792.3.57[id number] 2.840.1.969104.3.579.2.80[id number] 2.0.1.613831.3.579.2.48723-70-2159Jefbute88622954 2.840.1.242874.3.579.2.48703-95-3974Qconyie85493544 2.840.1.705861.3.579.2.20645-46-8759Mnhbpml39043878 2.840.1.240724.3.579.2.30511-77-5480Yjldrlo00809703 2.840.1.788289.3.579.2.25139-82-9218Rdktvpk51040231 2.840.1.706368.3.579.2.88791-26-4531Zgqatdp11127246 2.840.1.216272.3.579.2.882086-90-4679Zxkkgey0424633 2..1.962382.3.579.2.342242-54-0642Wcrlmua19403330 2..1.780192.3.579.2.72622-61-8850Iujjnil20415361 2..1.838564.3.579.2.33449-73-0615Gbxmmgr87062382 2..1.518760.3.579.2.95766-96-2251Eayfsod77197350 2..1.345722.3.579.2.727 [id number] [id number]-[id number]-cp93-o35p76zdqyg141-74-6819Jimh-vbt 3618i889-3646-0195-yi6n-96e4hfj11982OvvqbpnL6000191426DfexuhvZdmckvgEFVX/HFA/FAP [id number] 20y9200a-8347-7w3t-h8az-p840ql6u6225Lgpctpt95238026 2..1.183904.3.579.2.297Jqrgesd01983732 2..1.324760.3.579.2.531 Edrwizl26707924 2..1.487518.3.579.2.531 Social History DateTypeDetailFacilityStart: 01-14-2021 End: 73-79-6099Lprqrr consumes alcoholRarely consumes alcoholDavid [place] [id number] DO Work Phone: Comment on above:QUIT 2017 1 PPD;quit 05/26/2021;one electronic device a week;Start: 01-14-2021 End: 77-71-8602Fijcksh smoking status PRISLight tobacco smokerMetroHealthHistory of tobacco useCigarette SmokerMetroHealthStart: 01-14-2021 End: 46-92-1020Sqqfqmg use and exposureSmokeless tobacco non-userMetroHealth Start: 64-39-4032Htnoctc CommentSmokes approx three cigarettes a month when pt is stressed [facility]HealthStart: 61-08-0023Dqf Assigned At BirthNot on file [facility]HealthStart: 11-28-2020 End: 39-25-7270Gzoxqki smoking status NHISEx-smoker (finding)[facility]tart: 39-81-1379Mdl [facility] 12-30-2021 End: 10-51-3636Tab Assigned At [facility] HospitalHistory of tobacco useCurrent smokerNOAK HealthcareStart: 04-25-2024 End: 38-89-6604Gcrfcautz beverage intakeLifetime non-drinker (finding)[facility] HealthcareStart: 98-09-2961Xibzany Commentsoda/pop 1-2 cups/dayNOMercy Hospital [place] Sexual OrientationMercy Health Tiff[facility] Start: 67-52-8024QfoZtkd (finding)[facility] Hospitaltart: 31-05-3866VzkCpyrZJPI Healthcare Medical Equipment Procedure CodeEquipment CodeEquipment Original TextEquipment IdentifierDatesCL STENT REAGAN 3.0 X 28FDAStart: 69-15-4078HT STENT REAGAN 3.0 X 28FDAStart: 11-33-7495YLI of Circumflex Unknown 08/01/24 Non Biological Left Circumflex Coronary ArteryFDAStart: 23-13-2379Xbgwuku on above:3.7o74CGQ of Circumflex Unknown 08/01/24 Non Biological Left Circumflex Coronary ArteryFDAStart: 05-87-3301Oefdljn on above:3.8y75USD of Circumflex Unknown 08/01/24 Non Biological Left Circumflex Coronary ArteryFDAStart: 14-21-1252Uuxurzm on above:3.5x18 Functional Status AixtUjiuivefknCjfdftRbcomewb17-98-7643Cxesszn Health Questionnaire 2 item (PHQ- 2) [Reported][facility] HospitalGynnyortxy23-61-1200Ovixzjsfif StatusN/AFisher - [facility] Medical CenterIbhyoh29-88-1503Yfatzvsmiw StatusN/AFisher [facility]01-07-2025 Functional StatusNoFisher - [facility] Medical CenterZryjhg66-23-8951Vpodvkhdle StatusN/A Aaron [facility] Clinical Notes 12-19-2021 to 03-07-2025 Note Date & WakqIzqqUsoluvgk96-08-5372 History of Present illness Narrative* Amber Cuellar, DO - 03/07/2025 1:20 PM EDT Images from the original note were not included. [facility] [place], [place] SUBJECTIVE: HPI: Eliceo Kenny is a 59 [...] but he recovered within two days. His employee benefits manager discontinued carvedilol following a stent placementand initiated [...] Acquired hypothyroidism Aphasia Coronary artery disease involving wales coronary artery of wales heart without angina pectoris Generalized anxiety disorder Hemiparesis of right dominant side as late effect of cerebrovascular disease (HCC) HFrEF (heart failure with reduced ejection fraction) ([facility]) Mucopurulent chronic bronchitis (HCC) Nicotine dependence with [...] thrombotic pulmonary embolism without acute cor pulmonale ([facility]) 09/07/2019 Smoking 01/17/2024 Syncope 01/17/2024 Tobacco user 06/27/2024 Vertigo 06/27/2024 Vitamin D deficiency 06/27/2024 documented in this encounterLakeland Regional HospitalOhblqejnjz29-73-6616 NoteOperative Report Procedure Left heart catheterization procedure report DATE OF PROCEDURE: 08/01/2024 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 The planned puncture sites/areas were prepped and draped in usual sterile fashion and a safety time-out was performed. Moderate Sedation was given by the Cardiac Urology Physician Assistant RN. RIGHT RADIAL ARTERY ACCESS: The puncture [...] was administered via peripheral IV by the microbiology lab manager RN after the catheter crossed into the [...] <50cc CONTRAST ADMINISTERED: Please see Adult Cardiac Urology Physician Assistant Log for further details FINDINGS: SELECTIVE CORONARY [...] note The patient was heparinized. A 6 Bangladeshi JR4 guiding catheter was used. Right coronary artery was engaged. Intracoronary nitroglycerin was administered. Pressure wire was advanced to the proximal RCA,and after performance of advanced normalization, advanced to the distal RCA with no technical difficulties. iFR was assessed at 0.95, consistent with functionally nonsignificant (more content not included)...[facility] HospitalComment on above:Result Comment: Electronically Signed By: Blanco Lazcano MD\.br\Date and Time Signed: 08/01/24 16:24 [id number] Evaluation + Plan noteExtracted from:Title: Procedure Note Heart & VascularAuthor:Blanco Lazcano MD DDate:08/01/24 Atrial fibrillation (I48.91: Unspecified atrial fibrillation) CAD (coronary artery disease) (I25.10: Atherosclerotic heart disease of wales coronary artery without angina pectoris) HLD (hyperlipidemia) [...] * Magnesium Level 08/02/24 * Troponin 08/02/24 [facility] 01-07-2025 Hospital Discharge instructions Patient Education 08/01/2024 11:18:38 CV - Cardiovascular PCI Discharge Instructions (CUSTOM) [place], [place] Cardiovascular PCI DISCHARGE INSTRUCTIONS Diet: Resume [...] hours post procedure: Actoplus MetGlucophageGlucophage XR GlucovanceAvandametFortamet Itp-aerxiyjusNtpikeDsul-uewxvreoc GlumetzaJanumetMetaglip RiometGlycomet Minimal pain, soreness and/or discomfort is expected. If you are prescribed an aspirin and/or antiplatelet (such as Plavix, Brilinta or Effient) do NOT stop taking these medications for any reason without talking to your employee benefits manager Site Care: Do not remove dressing for [...] you are interested in smoking cessation, contact [facility] at [phone], ext. [phone]. In the event you are unable to reach your physician, please call [facility] at [phone] and the plasma cutting machine operator will assist you. Seek Medicare Care [...] Up Care 07/12/2024 12:07:06 With:Blanco Lazcano Address: [address] [place] [phone]- [phone] Business (1) When:08/24/2024 14:45:00 [facility] 11-28-2024 NoteEchocardiology Procedure Exam Date/Time Accession # Ordering Echo Transthoracic w/ 06/20/2024 15:19 EST [id number] Blanco Lazcano MD Contrast CPT code 74772 [id number] Reason for Exam (Echo Transthoracic w/ Contrast) I25.10;Cardiomyopathy Report [address] [address] Adult Echocardiogram Report Name: ELICEO KENNY Study Date: 06/20/2024 02:24 PM BP: 139/88 mmHg Patient Location: [facility] Ambulatory(s) [facility] HR: 87 : 1965 Gender: Male Height: [...] Blanco Lazcano MD Transcribed by: DHAVAL Technologist: [facility]10-02-2024 History of Present illness Narrative* Misti Pardo, [...] MOUTH EVERY DAY FOR 90 DAYS HYDROcodone-acetaminophen ([place]) 5-325 MG tablet every 6 (six) hours. [...] by mouth at bedtime 30 tablet 5 Ekohgjzjmek-Ktyeuiycp-Pwtxnp (Trelegy Ellipta) 200-62.5-25 MCG/ACT aerosol powder Inhale 1 puff Daily 1 each 5 No current facility-administered medications for this visit. Past Medical History: Diagnosis Date Abscess of sigmoid colon due to diverticulitis 01/17/2024 Angina pectoris ([facility]) Cardiogenic pulmonary edema ([facility]) 01/17/2024 Colostomy present ([facility]) COPD (chronic obstructive pulmonary disease) ([facility]) H/O ileostomy Heart failure ([facility]) History of stomach ulcers Hyponatremia 01/17/2024 Single subsegmental thrombotic pulmonary embolism without acute cor pulmonale ([facility]) 09/07/2019 Smoking 01/17/2024 Syncope 01/17/2024 Past Surgical [...] study. Misti Pardo DO documented in this encounterLakeland Regional HospitalByocjybwmh52-38-7506 History of Present illness Narrative* Amber Cuellar [...] for this visit: COPD with acute exacerbation ([facility]) - predniSONE (Deltasone) 20 MG tablet; Take [...] hypothyroidism (CMS/HCC) Aphasia Coronary artery disease involving wales coronary artery of wales heart without angina pectoris (CMS/HCC) Generalized anxiety [...] Smoking 01/17/2024 Syncope 01/17/2024 documented in this encounterLakeland Regional HospitalFffqcosoke62-82-5412 Note* Addendum Note - John Collier MD - 01/02/2024 9:47 AM EDTAddended by: JOHN COLLIER on: 01/02/2024 09:47 AM Modules accepted: Orders [id number] Miscellaneous Notes* Addendum Note - John Collier MD - 01/02/2024 9:47 AM EDTAddended by: JOHN COLLIER on: 01/02/2024 09:47 AM Modules accepted: Orders * Addendum Note - John Collier MD - 12/29/2023 12:25 PM EDTAddended by: JOHN COLLIER on: 12/29/2023 12:25 PM Modules accepted: Orders documented in this [id number] Note* Addendum Note - John Collier MD - 12/29/2023 12:25 PM EDTAddended by: JOHN COLLIER on: 12/29/2023 12:25 PM Modules accepted: Orders [id number] Note* Addendum Note - John Collier MD - 12/29/2023 12:25 PM EDTAddended by: JOHN COLLIER on: 12/29/2023 12:25 PM Modules accepted: Orders [id number] Note* Addendum Note - John Collier MD - 12/29/2023 12:25 PM EDTAddended by: JOHN COLLIER on: 12/29/2023 12:25 PM Modules accepted: Orders [id number] Miscellaneous Notes* Addendum Note - John Collier MD - 12/29/2023 12:25 PM EDTAddended by: JOHN COLLIER on: 12/29/2023 12:25 PM Modules accepted: Orders documented in this [id number] NoteS: patient has been doing well since [...] from him. He has not seen his pickup driver or his employee benefits manager in some time, but he will set up an appointment for medical risk stratification and optimization prior to going to our next clinic visit. Plan: We will follow up on operative risk stratification from his employee benefits manager and his pickup driver We will schedule to see him in clinic in 1 month after these items are completed. We ask that he provide the fax number [phone] to his providers to send the pre op evaluation documents to our officeThe [facility] History of Present illness Narrative* John Collier [...] from him. He has not seen his pickup driver or his employee benefits manager in some time, but he will set up an appointment for medical risk stratification and optimization prior to going to our next clinic visit. Plan: We will follow up on operative risk stratification from his employee benefits manager and his pickup driver We will schedule to see him in clinic in 1 month after these items are completed. We ask that he provide the fax number [phone] to his providers to send the pre op evaluation documents to our office documented in this [id number] History of Present illness Narrative* John Collier [...] from him. He has not seen his pickup driver or his employee benefits manager in some time, but he will set up an appointment for medical risk stratification and optimization prior to going to our next clinic visit. Plan: We will follow up on operative risk stratification from his employee benefits manager and his pickup driver We will schedule to see him in clinic in 1 month after these items are completed. We ask that he provide the fax number [phone] to his providers to send the pre op evaluation documents to our office documented in this [id number] Instructions* Patient Instructions* Vanessa Wilson MD - 08/17/2022 2:28 PM EST Please send records from Dr. Ocampo to [facility] after appointment this upcoming Wednesday. Attn: Vanessa Wilson MD Trauma, Emergency General Surgery, Burn, and Surgical Critical Care Obtaining information to determine cardiac risk for Elective ileostomy reversal, possible exploratory laparotomy, possible bowel resection. Not an emergent or urgent surgery. documented in this [id number] History of Present illness Narrative* Vanessa Wilson MD - 08/17/2022 2:23 PM EST Images from the original note were not included. Trauma/Acute Care Surgery Clinic Note Eliceo Kenny is a 56 year old male with a history of hypothyroidism, ID, CHF, COPD, CAD (s/p PCI on ASA/Plavix), [...] healing well. He returned to ED [place] for abdominal pain and drainage of midline [...] state he recently had an admission to [facility] about 3 weeks prior for possible [...] reverse his ileostomy. He has seen his employee benefits manager and states he was told that having [...] procedure. I will need records from his employee benefits manager, especially since he is potentially recommended for either a pacemaker or defibrillator, and I would like records from his pickup driver (Dr. Sousa at [facility]) since he requires frequent use of his rescue inhaler and he often appears in the office audibly wheezing. He has not had any colonoscopy in any of the records I have visible at [facility], and he states if he ever had one, it would have been through [facility]. I would also like his recent records [...] need more information before I can adequately counseling center director him on these risks and have an accurate discussion with him to determine if benefits outweigh substantial risks. I had him sign medical release forms to obtain records from [facility]. He states he has an appointment with cardiology this upcoming Wednesday, and I encouraged him to have them send his records during that visit. I provided the fax number and directions. Will plan for follow up on ce these have been obtained. Answered all question to the best of my ability. Vanessa Wilson MD documented in this [id number] Telephone encounter Note* Telephone Encounter - Corazon Khan - 08/06/2022 2:27 PM EST Pt was last seen in December 2021, pt would like to see Dr. Wilson for a follow- up he is experiencing some discomfort and would like the doctor to review things with him concerning his health 08/17/2022 at 2:45 pm [id number] Miscellaneous Notes* Telephone Encounter - Corazon Khan - 08/06/2022 2:27 PM EST Pt was last seen in December 2021, pt would like to see Dr. Wilson for a follow- up he is experiencing some discomfort and would like the doctor to review things with him concerning his health 08/17/2022 at 2:45 pm documented in this [id number] History of Present illness Narrative* Vanessa Wilson MD - 12/30/2021 4:19 PM EDT Images from the original note were not included. Trauma/Acute Care Surgery Clinic Note Eliceo Kenny is a 56 year old male with a history of hypothyroidism, ID, CHF, COPD, CAD (s/p PCI on ASA/Plavix), [...] healing well. He returned to ED [place] for abdominal pain and drainage of midline [...] chest pain. He does state that his employee benefits manager wants to evaluate him for defibrillator placement. [...] Recommended he continue to follow with his employee benefits manager and pickup driver for management. I did also suggest that if he has any acute concerns about his abdomen that I recommend he try to go to the [facility] in [place] if he is able to get there instead of [facility] since myself and my partners rotate covering emergency general surgery call at [facility] 15/02. In the meantime, no scheduled follow [...] Risk protocol implemented: No documented in this [id number] Instructions* Patient Instructions* Vanessa Wilson MD - 12/30/2021 1:31 PM EDT If you are concerned about your ostomy (the bag) or about a new abscess or anything related to yourabdomen - come to the [facility] in [place] if you can, and ask for the [...] I will take over documented in this [id number] Telephone encounter Note* Telephone Encounter - Jina Mclean - 12/19/2021 1:58 PM EDT Tried to reach patient about appt on that we needed to move to 6/ and I got his voicemail that was not set up I will try back [id number] Miscellaneous Notes* Telephone Encounter - Jina Mclean - 12/19/2021 1:58 PM EDT Tried to reach patient about appt on that we needed to move to 6/ and I got his voicemail that was not set up I will try back documented in this encounterMetroHealthEvaluation + Plan note No data available for this section [facility] note Future Appointments Appointment Date:08/24/2024 02:45:00 PM Scheduled Provider:Jaleesa SOLIS, Blanco Montenegro Location:[facility].Cardiology Clinic Appointment Type:Cardiology Follow Up ([facility]) [facility] Evaluation + Plan note Future Appointments Appointment Date:08/24/2024 02:45:00 PM Scheduled Provider:Blanco Lazcano MD Location:[facility].Cardiology Clinic Appointment Type:Cardiology Follow Up (FT) Future Scheduled Tests Laboratory* B-Type Natriuretic Peptide 05/25/24 * Basic Metabolic Panel 05/25/24 * Lipid Panel 05/25/24 [facility] evalujdahf + Plan note Future Appointments Appointment Date:08/01/2024 09:00:00 AM Scheduled Provider: Location:[facility] Appointment Type:CV Heart Cath (FT) Appointment Date:08/24/2024 02:45:00 PM Scheduled Provider:Blanco Lazcano MD Location:[facility].Cardiology Clinic Appointment Type:Cardiology Follow Up (FT) Future Scheduled Tests Radiology* CV Cardiovascular 08/01/24 [facility] evaluation + Plan note Future Appointments Appointment Date:09/21/2024 02:00:00 PM Scheduled Provider:Blanco Lazcano MD Location:[facility].Cardiology Clinic Appointment Type:Cardiology Follow Up (FT) [facility] evaluation + Plan note Future Appointments Appointment Date:02/07/2025 01:45:00 PM Scheduled Provider:Juan Francisco Johnson PA-C Location:[facility].Cardiology Clinic Appointment Type:Cardiology Follow Up (FT) [facility] evaluation note* Diagnosis Attention to ileostomy (HCC)- Primary Attention to ileostomy Body mass index (BMI) 35.0-35.9, adult documented in this encounter [facility]Evaluation noteNo assessment information availableF[facility] Work Phone: evaluation note* Diagnosis Attention to [...] exercise and weight loss were reviewed with him.[facility] [employer] DO Work Phone: History of Present illness [...] exercise and weight loss were reviewed with him.[facility] 250 DO Work Phone: History of [...] exercise and weight loss were also advocated. [place] [address] DO Work Phone: History of Present illness [...] disease that could complicate his procedure. [facility] 250 DO Work Phone: Hospital Discharge instructions No data available for this section [facility] HospitalProgress note No data available for this section [facility] Summary Purpose Family History No Family [...] No May 28, 2018 2:14am Date ActivatedDate HtbbkwdxfboEmnrfgyf46/10/2021 5:38 AM05/05/2021 1:46 PM QuestionAnswerCommentsDocumentation of decision [...] seen for a 5 month follow-up of. [facility] Discharge 06/14/2021[facility] is being seen for a 5 month follow-up of. [facility] Discharge 06/14/2021[facility] ZOYA is being seen for a 6 [...] Chronic obstructive pulmonary disease, unspecified COPD type ([facility]CC) Misti Pardo, [address] [place] [address] Referral IDStatusReasonStart DateExpiration DateVisits RequestedVisits [id number] Additional Source Comments (unrecognized sect ion and content) No Status Records FoundNo Status Records FoundNo Status Records FoundNo Status Records FoundNo Status Records FoundNo Status Records FoundNo Status Records FoundNo Status Records FoundNo Status Records FoundNo Status Records FoundNo Status Records FoundNo Status Records FoundNo Status Records FoundNo Status Records Found INFORMATION SOURCE (unrecogn ized section and content) DATE CREATED AUTHOR 10/23/2018 [facility] DATE CREATED AUTHOR AUTHOR'S ORGANIZ ATION 05/16/2022 [facility] DATE CREATED AUTHOR AUTHOR'S ORGANIZ ATION 07/28/2022 [facility] DATE CREATED AUTHOR AUTHOR'S ORGANIZ ATION 2022 [facility] DATE CREATED AUTHOR AUTHOR'S ORGANIZ ATION 2022 [employer] DATE CREATED AUTHOR AUTHOR'S ORGANIZ ATION 10/13/2022 [facility] DATE CREATED AUTHOR AUTHOR'S ORGANIZ ATION 03/11/2024 [facility] DATE CREATED AUTHOR AUTHOR'S ORGANIZ ATION 07/25/2024 [facility] DATE CREATED AUTHOR AUTHOR'S ORGANIZ ATION 08/05/2024 [facility] DATE CREATED AUTHOR AUTHOR'S ORGANIZ ATION 08/26/2024 [facility] DATE CREATED AUTHOR AUTHOR'S ORGANIZ ATION 03/09/2025 [facility] DATE CREATED AUTHOR AUTHOR'S ORGANIZ ATION 05/26/2025 [facility] Care Teams (unrecognized sec tion and content) Team MemberRelationshipSpecialtyStart DateEnd [place] [address] PCP - GeneralFamily Medicine03/28/20 Cee Leo LISW [address] [address] Social WorkerSocial Work04/30/20 Manjula Lind MD, PhD [address] [place] [address] PhysicianTrauma Blpndbf87/1/21Team MemberRelationshipSpecialtyStart DateEnd Date Tawnya Pepper N [place] [id number] PCP - GeneralFamily Medicine03/28/[address] [address] Social WorkerSocial Work04/30/20 Manjula Lind MD, PhD [address] [place] [address] [place] [address] PhysicianTrauma Shshwkl96/1/21 Team Status: Inactive Member Role Status Dates Carmine Jackson , Attending Provider Active Medhat Baltazar , DO RESReferring ProviderActive Team Status: Inactive Member Role Status Dates Medhat Baltazar , RES Attending Provider Active Team Status: Inactive Member Role Status Dates Medhat Baltazar , RES Referring Provider Active Carolyn Dugan , MDAttbucky ProviderActiveTeam MemberRelationshipSpecialty Start DateEnd Date Tawnya Pepper [address] [place] [address] PCP - GeneralFamily Medicine03/28/[address] [address] Social WorkerSocial Work04/30/20 Manjula Lind MD, PhD [address] [place] [address] [place] [address] PhysicianTrauma Wsqebfp33/1/21Team MemberRelationshipSpecialtyStart DateEnd Date Tawnya Pepper [address] [place] [address] PCP - GeneralFamily Medicine03/28/[address] [address] Social WorkerSocial Work04/30/20 Manjula Lind MD, PhD [address] [place] [address] [place] [address] PhysicianTrauma Vrdypkf99/1/21Team MemberRelationshipSpecialtyStart DateEnd Date Tawnya Pepper [address] [place] [address] PCP - GeneralFamily Medicine03/28/[address] [address] Social WorkerSocial Work04/30/20 Manjula Lind MD, PhD [address] [place] [address] [place] [address] PhysicianTrauma Xmzlqzg57/1/21 Vanessa Wilson MD [address] [place] [address] [place] [address] PhysicianTrauma Surgery08/29/22Team MemberRelationshipSpecialtyStart DateEnd Date Tawnya Pepper [address] [place] [address] PCP - GeneralFamily Medicine03/28/[address] [address] Social WorkerSocial Work04/30/20 Manjula Lind MD, PhD [address] [place] [address] [place] [address] PhysicianTrauma Nlcckqt50/1/21 Vanessa Wilson MD [address] [place] [address] [place] [address] PhysicianTrauma Surgery08/29/22Team MemberRelationshipSpecialtyStart DateEnd Date [place], Amber L, DO [address] [place] [address] PCP - GeneralFamily Medicine12/01/22Team MemberRelationshipSpecialtyStart DateEnd Date Amber Cuellar, DO [address] [place] [address] PCP - Generalmi Medicine12/01/22Team MemberRelationshipSpecialtyStart DateEnd Date Amber Cuellar, DO [address] [place] [address] [facility]/01/22Team MemberRelationshipSpecialtyStart DateEnd Date Amber Cuellar, DO [address] [place] [address] PCP - Generalmi Medicine12/01/22 Amber Cuellar, DO [address] [place] [address] PCP - [facility]10/24/2510Team MemberRelationshipSpecialtyStart DateEnd Date Amber Cuellar, DO [address] [place] [address] PCP - Generalmily Medicine12/01/22 Amber Cuellar, DO [address] [place] [address] PCP - [facility]10/24/2510Team MemberRelationshipSpecialtyStart DateEnd Date Amber Cuellar, DO [address] [place] [address] PCP - GeneralFamily Medicine12/01/22 Polo Amber Patricia, DO [address] [place] [address] PCP - [facility]10/24/2510Team MemberRelationshipSpecialtyStart DateEnd Date Amber Cuellar Patricia [address] [place] [address] PCP - Generalmily Medicine12/01/22 Polo Amber Gomez, DO [address] [place] [address] PCP - [facility] Goals (unrecognized section and content) Goals may [...] / Pulmonology Diagnoses COPD with acute exacerbation ([facility]) Procedures SC OFFICE/OUTPATIENT NEW HIGH MDM 60 MINUTES Amber Cuellar DO [address] [place] [address] Misti Pardo, DO [address] [place] [address] Referral IDStatusReasonStart DateExpiration DateVisits RequestedVisits [id number] Specialty Services Required [id number] RefillReasonCommentsAnnual Exam FOR RECORDS PERTAINING TO PATIENTS [...] BE BASED ON THE PRIMARY CLINICAL RECORDS. [facility] [employer] provides no warranty or guarantee of the accuracy or completeness of information in this document.
[2025-06-10] MEDS: PROCHLORPERAZINE 10 MG/2 ML VIAL IV (19:56)
[2025-06-10] MEDS: DEXTROSE 5 %-0.45 % SOD CHLORD 1,000 ML 100 ML IV (19:57)
[2025-06-10] MEDS: AZITHROMYCIN 500 MG in 0.9 % SODIUM CHLORIDE 250 ML 250 MG IV (19:57)
[2025-06-10] MEDS: PANTOPRAZOLE SODIUM 40 MG VIAL IV (21:48)
[2025-06-10] MEDS: DOXYCYCLINE HYCLATE 100 MG in 0.9 % SODIUM CHLORIDE 100 ML IV (21:48)
[2025-06-10] MEDS: HEPARIN SODIUM (PORCINE) 5,000 UNIT/ML VIAL 5000 UNIT SUBQ (21:48)
[2025-06-10] MEDS: TRAZODONE HCL 50 MG TABLET PO (21:49)
[2025-06-10] MEDS: ATORVASTATIN CALCIUM 40 MG TABLET 80 MG PO (21:49)
[2025-06-11] VITALS (10 sets, daily range): BP systolic 106–131; BP diastolic 66–84; PULSE 84–100; TEMP 36.3–36.8; O2SAT 90–95
[2025-06-11] MEDS: PROCHLORPERAZINE 10 MG/2 ML VIAL IV (04:24)
[2025-06-11] MEDS: ACETAMINOPHEN 325 MG TABLET 650 MG PO ×3 (04:24→21:06)
[2025-06-11] MEDS: IPRATROPIUM/ALBUTEROL SULFATE 3 ML AMPUL.NEB IH ×3 (04:58→20:20)
[2025-06-11 05:51] LABS: Hematocrit 39.8 % (42.0-54.0); Hemoglobin 13.6 g/dL (14.0-18.0); Immature Granulocytes Abs Auto 0.04 10^3/uL (0.00-0.03); Immature Granulocytes Pct Auto 0.5 % (0.0-0.5); Lymphocytes Absolute Auto 0.5 10^3/uL (1.2-3.8); Mean Corpuscular HGB Conc 34.2 g/dL (29.9-35.2); Mean Corpuscular Hemoglobin 33.4 pg (25.9-34.0); Mean Corpuscular Volume 97.8 fL (80.0-94.0); Platelet Count 191 10^3/uL (150-450); Red Blood Count 4.07 10^6/uL (4.70-6.10); White Blood Count 7.4 10^3/uL (4.0-11.0)
[2025-06-11] MEDS: LEVOTHYROXINE SODIUM 100 MCG TABLET 200 MCG PO (06:06)
[2025-06-11 06:10] LABS: Anion Gap 16.1; Blood Urea Nitrogen 31.0 mg/dL (7.0-18.0); Calcium 9.2 mg/dL (8.5-10.1); Carbon Dioxide 21.1 mmol/L (21.0-32.0); Chloride 103 mmol/L (98-107); Estimated GFR (African America 45 (>=60 mL/min/1.73m^2); Estimated GFR (Non-African Ame 37 (>=60 mL/min/1.73m^2); Glucose 191 mg/dL (74-106); Magnesium 2.4 mg/dL (1.8-2.4); Potassium 4.2 mmol/L (3.5-5.1); Sodium 136 mmol/L (136-145)
--- OUTSIDE RECORDS SUMMARY | 2025-06-11 06:58 | XMS_ITS | Clinical Summary ---
Author Organization [facility] Address [address] [place] [address] Care Team Providers Care Greige Goods Marker Name Role Phone Joe Cuellar DO Primary Care Provider + [phone] PoloJoe DO Unavailable [phone] Allergies Active AllergyReactionsCriticalityNoted DateCommentsMorphineOther,Dizziness Iqetjl1511/19/2018 Agitation Penicillin WMvwxfeqkcxiEshu88/08/2023 Medications MedicationSigDispense QuantityRefillsLast FilledStart DateEnd DateStatus albuterol [...] DateDiagnosed DateAtherosclerosis of coronary artery without angina eogjtlwp25/13/3787Qqfm34/24/4940Ytkboub11/24/0894Rzjmugbimskd91/24/2024Status post non-ST elevation myocardial infarction (NSTEMI)01/17/2024Status post partial resection of colon01/17/2024Ventricular nsujgzaf25/24/2024espiratory failure with hhljrug4401/17/2024izziness, nltethkyvuv25/18/2024Hypotension due to drugs01/11/2024QT zuecdlyiqprr92/18/2024cquired qnykjhznmshpaq60/08/2023phasia 12/31/2022oronary artery disease involving nuiqsut coronary artery of nuiqsut heart without angina vdkyqjwc71/08/2023eneralized anxiety llpxojdq86/08/2023 Hemiparesis of right dominant side as late effect of cerebrovascular disease 12/31/2022HFrEF (heart failure with reduced ejection fraction)12/31/2022 Mucopurulent chronic /08/2023Nicotine dependence with nicotine- induced knkelwwq12/08/2023Other ddaxehbxbotdvm65/08/2023Other obesity due to excess ltjldlot42/08/2023resence of jmhqgqjos15/08/2023rimary hypertension 12/31/2022bdominal wall kzsckzc4105/04/2021/P colostomy uoqbgfgy20/11/2021OPD dgwvzjkedegl10/20/9962Plpjyewpbdwnln98/31/2020History of pulmonary embolus (PE) 03/25/2020History of tobacco abuse03/25/2020Ischemic bepohlwrtbhizl48/31/2020 Lower GI bleed03/25/2020Oral taefmf2403/25/20201386Wmclbyi43/12/2020Acute embolism and thrombosis of unspecified deep veins of right lower xnskdmqle84/13/2020Acute respiratory failure with qwmndfg8809/07/2019Acute respiratory ozejxjt7109/07/2019 COPD (chronic obstructive pulmonary disease)09/07/2019Cardiomyopathy, edjzdstmyvs63/13/2020Cerebral infarction, btctedteame23/13/2020Chronic systolic (congestive) heart bqddoor5509/07/2019Cognitive communication vjeuopt1309/07/2019 Difficulty in walking, not elsewhere csgkqvlgeu13/13/2020Diverticulitis of intestine, part unspecified, with perforation and abscess without bleeding 09/07/2019Muscle weakness (generalized)09/07/2019Other nonrheumatic mitral valve rwdynmjjx36/13/2020Pneumonia, unspecified hcjgujpy16/13/2020Shortness of breath 09/07/2019Single subsegmental pulmonary embolism without acute cor pulmonale 09/07/2019Sleep apnea, vidbiwqhpgf41/13/2020Ventricular woevtthpbnd03/13/2020 Abdominal wall fluid djvryczcnig47/24/2020Diverticulitis of large intestine with perforation without nxhijgqr69/28/2019 Resolved Problems ProblemNoted DateDiagnosed DateResolved DateBilateral carpal tunnel syndrome InsomniaMemory tgiycd6406/27/2024 06/27/2024NSTEMI (non-ST elevated myocardial infarction) Vitamin D pytcsxedou88Hypothyroidism Chronic combined systolic and diastolic congestive heart edlwnzc2706/27/2024 06/27/2024hronic obstructive pulmonary ykfciqb59Vertigo Tobacco userObstructive sleep apnea Hx of non-ST elevation myocardial infarction (NSTEMI) bscess of sigmoid colon due to sandfgmjnwdodm36/24/2024 01/17/2024ardiogenic pulmonary edemaHyponatremia01/17/2024 01/17/20242902Jyyozik63SyncopeSingle subsegmental thrombotic pulmonary embolism without acute cor eolxdmdxa17/13/2020 04/25/2024 Encounters DateTypeDepartmentCare IwywLhxmbonaafm00/29/2025[facility] [address] [place] [address] Joe Cuellar, DO Diverticulitis of intestine, part unspecified, with perforation and abscess without clidoiwc14/18/2025[facility] [address] [place] [phone] Joe Cuellar, DO Insomnia, unspecified type03/19/2025Refill [facility] [place] [facility] [address] [place] [phone] Joe Cuellar, Insomnia, unspecified typefrom Last 3 Months Immunizations ImmunizationAdministration DatesNext DueInfluenza, High Dose Seasonal, Preservative Free04/02/2022Influenza, injectable, MDCK, preservative free, ykwuwyztpxpa64/11/2019Influenza, injectable, quadrivalent, preservative free 07/24/2018Influenza, seasonal, ftgtughnpk85/01/2020Pneumococcal Polysaccharide HSIL5747 Family History Medical HistoryRelationNameCommentsThroat cancerMotherNo Known ProblemsSister3 - healthyRelationNameStatusCommentsFatherDeceasedMotherDeceasedSister Social History Tobacco UseTypesPacks/DayYears UsedDateSmoking Tobacco: FormerCigarettes Smokeless Tobacco: Never Tobacco Cessation:Counseling Given: Yes Alcohol UseStandard Drinks/WeekCommentsNever0 (1 standard drink = 0.6 oz pure alcohol)soda/pop 1-2 cups/dayPHQ-2AnswerDate RecordedPatient Health Questionnaire-2 Pndlu297Sex and Gender InformationValueDate RecordedSex Assigned at BirthNot on fileLegal RclNuqh1610/07/2022 8:32 PM EDTGender Identity Not on fileSexual OrientationNot on file Last Filed Vital Signs Vital SignReadingTime TakenCommentsBlood Qiptxxgh689/7608 12:48 PM EDT Xrrpx90032/13/2025 12:48 PM OSYQzujwxcgynw93.3 ??C (97.4 ??F)03/07/2025 12:48 PM EDTRespiratory Rate--Oxygen Mmcbqwvyve87%03/07/2025 12:48 PM EDTInhaled Oxygen Concentration--Hxqhvx659 kg (256 lb)03/07/2025 12:48 PM OBRTghbnc386.6 cm (5' 6 )03/07/2025 12:48 PM EDTBody Mass Index41.32003/07/2025 12:48 PM EDT Plan of Treatment DateTypeDepartmentCare Team (Latest Contact Info)Aisuykupssx44/ 2:00 PM ESTOffice Visit [facility] [place] [facility] [address] [place] [phone] Joe Cuellar DO [address] [facility] [address] [place] [address] Health MaintenanceDue DateLast DoneCommentsPneumococcal Vaccine: Pediatrics (0 to 5 Years) and At-Risk Patients (6 to 64 Years) (2 of 2 - PCV)08/08/2020 08/08/2019COVID-19 Vaccine (1 - season)2025Influenza Vaccine (#1) , 04/02/2022, 08/26/2019, Additional history exists Insurance Care Teams Team MemberRelationshipSpecialtyStart DateEnd Date Joe Cuellar DO [address] [facility] [address] [place] [address] PCP - [facility]12/01/22 Joe Cuellar DO [address] [address] PCP - [facility]07/2510
--- OUTSIDE RECORDS SUMMARY | 2025-06-11 06:58 | XMS_ITS | Clinical Summary ---
Author Organization [facility] Address [address] [place] [address] Care Team Providers Care Kiln Furniture Caster Name Role Phone Unavailable Primary Care Provider Unavailabl e Social History Tobacco UseTypesPacks/DayYears UsedDateSmoking Tobacco: Never AssessedSex and Gender InformationValueDate RecordedSex Assigned at BirthNot on fileLegal Sex Male01/22/2022 12:15 AM EDTGender IdentityNot on fileSexual OrientationNot on file Plan of Treatment Not on file
--- OUTSIDE RECORDS SUMMARY | 2025-06-11 06:58 | XMS_ITS | CCD ---
Author Organization [facility] Informat ion Partnership 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 Aaron Ocampo II Attending Unavaila lory MOY Dr. PCP Primary Care Unavailable DO Carmine Jackson Attending Provider [phone] DO Medhat Baltazar Referring Provider DO Medhat Baltazar Referring Provider MD Carolyn Dugan Attending Provider [phone] DO Medhat Baltazar Attending Provider FAMILY, HEALTH [...] SAV Admitting Unavailable SAMSA SAV Attending Unavailable [facility] Primary Care Unavaila ble Tawnya Pepper Primary Care Provider [phone] Felipa PAEZCarlana Unavailable Diogo SOLIS, PhD, Manjula Putnam Unavailable McGuinn II, Aaron Dentonrick Referring Unav ailable McGuinn II, Aaron Christiansen Attending Unav ailable UNKNOWN, PCP Primary Care Unavailable UNKNOWN, PCP Primary Care Unavailable McGuinn II, Aaron Christiansen Referring Unav ailable McGuinn II, Aaron Christiansen Attending Unav ailable Lowrie, Rastafarian Consulting Unavailable [facility] Primary Care Unavaila ble Mast, Shane Attending Unavailable Mast, Shane Admitting Unavailable Carolyn Dugan Attending Unavailable Carolyn Dugan Admitting Unavailable LowrieMedhat Referring Unavailable Lowrie, Rastafarian Referring Unavailable Steve Jacksonew Viv Attending Unavailable Carmine Jackson Admitting Unavailable AMBER CUELLAR Primary Care Physician Tawnya Pepper Primary Care Provider [phone] Felipa PAEZCee Unavailable [phone] Diogo SOLIS, PhD, Manjula Putnam Unavailable Steve SOLIS, Vanessa Unavailable PROVIDER, UNKNOWN Attending Unavailable PROVIDER, UNKNOWN Admitting Unavailable TAWNYA PEPPER Primary Care Unavailable Amber Cuellar DO Primary Care Provider Blanco Lazcano Attending Unavailable Blanco Lazcano Referring Unavailable Blanco Lazcano Admitting Unavailable Blacno Lazcano Attending Unavailable Blanco Lazcano Admitting Unavailable [...] Referring Unavailable MD Blanco Lazcano Admitting Unavailable MaurepasAmber mcclure DO L Unavailable CUTLERRENOAMBER L Attending [...] (20 sources)Penicillins; Translations: [Penicillins]Allergy to drug (finding) 76-70-9100Fuifwgnphg Breathing, Reaction (qualifier value)[facility]- Teressa 250 DO Work Phone: (17 sources)Morphine; Translations: [MORPHINE]Drug Svbizwx81-34-4312Llrdfwulm, Other, DizzinessMetroHealth Work Phone: (1 source)MorphineDrug AllergyThe [facility] (1 source)PenicillinDrug AllergyThe [facility] (9 sources)Penicillins; Translations: [penicillins]Propensity to adverse reactions to zrpg72-24-4780Bitzhbwfan Breathing, Reaction (qualifier value) [facility] ([facility] source)PenicillinsDrug allergy (disorder)36-84-4379UwwvzmxrlCleveland Clinic [facility] (9 sources)Penicillin GDrug Mhfblhb17-04-6873ZmdytdihehhPTJL Healthcare Medications Current Medications MedicationDrug Class(es)DatesSig (Normalized)Sig (Original)acetaminophen 325 mg / HYDROcodone bitartrate 5 mg oral tablet (20 sources)Opioid AgonistStart: 04-03-2020 End: 16-20-0195giuh 1 tablet by mouth every six hoursHydrocodone-Acetaminophen Active 5 - 325 TAB PO Every 6 hours April 02, 2020 11:16ktgjs421902 200 actuat albuterol 0.09 mg/actuat metered dose inhaler (20 sources)beta2-Adrenergic AgonistStart: 40-19-5512miib 2 puff(s) by inhalation every four hours for wheezingalbuterol HFA 90 mcg/act inhaler Indications: Chronic obstructive pulmonary disease, unspecified COPD type (HCC) INHALE 2 PUFFS EVERY 4 HOURS IF NEEDED FOR WHEEZING. 18 g 5 02/21/2025 Active Start: 05-05-2024 End: 01-72-3469ummh 2 puff(s) by inhalation every four hours for wheezing albuterol HFA 90 mcg/act inhaler Indications: Chronic obstructive pulmonary disease, unspecified COPD type (HCC) Inhale 2 puffs every 4 (four) hours if needed for wheezing 18 g 5 05/05/2024 02/21/2025 DiscontinuedStart: 11-25-2022 albuterol Refills(s) 0 Start Date: 11/25/22 Status: Ordered Repeat number: 1Start: 13-65-0050lmjesnqtp Refills(s) 0 Start Date: 11/25/22 Status: OrderedStart: 02-16-9943bxlx 1 puff(s) by inhalation every four hoursAlbuterol Sulfate (Proair Hfa) 90 mcg/actuation HFA aerosol inhaler Active 2 PUFF INHALATION Q4H July 04, 2019 4:12pmStart: 07-26-2018 End: 54-85-2514rhbl 2.5 mg by inhalation every eight hoursAlbuterol Sulfate Discontinued 2.5 MG INHALATION Q8H 90 July 26, 2018 12:00am September 07, 2019 2:50pmStart: 06-06-2018 End: 88-75-2411Otjusuhpt Sulfate (Proair Hfa) 90 mcg/actuation HFA aerosol [...] hydrochloride 200 mg oral tablet (10 sources)AntiarrhythmicStart: 57-14-4321cviq 2 tablets by mouth once daily Amiodarone (Pacerone) 200 mg tablet Active 400 MG PO Daily April 03, 2020 2:28pmStart: 07-07-2019 End: 80-74-4666ssmk 200 mg by mouth once dailyAmiodarone Discontinued 200 MG PO Daily 60 July 07, 2019 2:42pm April 03, 2020 2:29pmStart: 06-14-2018 End: 10-95-1119kmhj 400 mg by mouth once dailyAmiodarone Discontinued 400 MG PO Daily 60 June 14, 2018 12:00am July 07, 2019 2:48pmStart: 06-06-2018 End: 27-67-4746eiao 400 mg by mouth twice dailyAmiodarone Discontinued 400 MG PO Twice daily 120 June 06, 2018 12:00am June 14, 2018 12:53pm amLODIPine 5 mg oral tablet (4 sources)Dihydropyridine Calcium Channel BlockerStart: 18-09-5504neht 1 tablet by mouth once dailyNorvasc 5 mg Tab 5 mg = 1 tab(s), Oral, Daily, # 30 tab(s), Refills(s) 6, Pharmacy: [facility]/pharmacy #[id number], 167, cm, 08/24/24 13:40:00 EST, Height/Length Dosing, 111, kg, 08/24/24 13:46:00 EST, Weight Dosing Start Date: 08/24/24 Status: Ordered Quantity: 30.0 Unit: tab(s) Repeat number: 7aspirin 81 mg delayed release oral tablet (20 sources)Platelet Aggregation Inhibitor, Nonsteroidal Anti-inflammatory Drug Start: 55-74-7079knko 1 tablet by mouth once dailyaspirin 81 mg Oral EC Tab 81 mg = 1 tab(s), Oral, Daily, # 30 tab(s), Refills(s) 0 Start Date: 11/25/22 Status: Ordered Quantity: 30.0 Unit: tab(s) Repeat number: 1Start: 01-27-8587ffpz 1 tablet by mouth once dailyAspirin Low Dose 81 MG Oral Tablet Delayed Release TAKE 1 TABLET BY MOUTH EVERY DAY Quantity: 30 Refills: 0 Ordered: 17-Aug-2022 Aaron Ocampo MD Start : 16-May-2020 ActiveStart: 06-06-2018 End: 59-62-2049ypcv 1 tablet by mouth once dailyAspirin Low [...] mg oral tablet (20 sources)HMG-CoA Reductase InhibitorStart: 03-89-9477mpjx 1 tablet by mouth once dailyatorvastatin 80 mg Tab 80 mg = 1 tab(s), Oral, Daily, # 30 tab(s), Refills(s) 5, Pharmacy: [facility]/pharmacy #[id number], 167, cm, 05/24/24 13:49:00 EDT, Height/Length Dosing, 110.8, kg, 05/24/24 13:49:00 EDT, Weight Dosing Start Date: 05/26/24 Status: Ordered Quantity: 30.0 Unit: tab(s) Repeat number: 6Start: 66-82-3388uana 1 tablet by mouth once daily at bedtimeAtorvastatin Calcium 80 MG Oral Tablet TAKE 1 TABLET BY MOUTH EVERYDAY AT BEDTIME Quantity: 90 Refills: 3 Ordered: 19-Aug-2022 Aaron Ocampo MD Start : 21-Jul-2021 ActiveStart: 06-06-2018 End: 19-66-6114ykqe 80 mg by mouth once daily in the eveningAtorvastatin Discontinued 80 MG PO Every evening June 14, 2018 12:00am April 03, 2020 2:29pm60 actuat budesonide 0.16 mg/actuat / formoterol fumarate 0.0045 mg/actuat metered dose inhaler (20 sources)Corticosteroid, beta2-Adrenergic AgonistStart: 96-51-6208maefuzxjvo- formoterol (Symbicort) 160-4.5 MCG/ACT inhaler Indications: Chronic obstructive pulmonary disease, unspecified COPD type (HCC) Inhale 2 puffs every 12 (twelve) hours 3 each 3 03/07/2025 ActiveStart: 34-18-4307vvry 2 puff(s) by mouth twice dailyBudesonide-Formoterol (Symbicort) 160-4.5 mcg/actuation HFA aerosol inhaler Active 2 PUFF INHALATION Twice daily April 02, 2020 11:00pm INHALE 2 PUFFS BY MOUTH TWICE A DAY *RINSE AFTER USE*Start: 34-33-7885hvrv 2 puff(s) by mouth twice dailySymbicort 160-4.5 MCG/ACT inhaler Inhale 2 Puffs by mouth 2 times daily. 03/14/2020 Active End: 13-61-2482Ldclleohk 160-4.5 MCG/ACT inhaler every 12 (twelve) hours. 03/07/2025 Discontinued (Reorder)carvedilol 6.25 mg oral tablet (20 sources)alpha-Adrenergic Filippo, beta-Adrenergic BlockerStart: 11-25-2022 take 1 tablet by mouth twice dailycarvedilol 6.25 mg Tab 6.25 mg = 1 tab(s), Oral, BID, # 60 tab(s), Refills(s) 5, Pharmacy: [facility]/pharmacy #[id number], 167, cm, 05/24/24 13:49:00 EDT, Height/Length Dosing, 110.8, kg, 05/24/24 13:49:00 EDT, W eight Dosing Start Date: 05/26/24 Status: OrderedStart: 06-06-2018 End: 11-72-3679wjsv 1 tablet by mouth twice dailyCarvedilol 6.25 MG Oral Tablet take 1 tablet by mouth twice a day Quantity: 180 Refills: 3 Ordered:19-Aug-2022 Aaron Ocampo MD Start : 13-Oct-2021 Activeclopidogrel 75 mg oral tablet (20 sources)P2Y12 Platelet InhibitorStart: 03-60-0470hxqr 1 tablet by mouth once dailyclopidogrel 75 mg Tab 75 mg = 1 tab(s), Oral, Daily, # 30 tab(s), Refills(s) 5, Pharmacy: [facility]/pharmacy #[id number], 167, cm, 05/24/24 13:49:00 EDT, Height/Length Dosing, 110.8, kg, 05/24/24 13:49:00 EDT, Weight Dosing Start Date: 05/26/24 Status: Ordered Quantity: 30.0 Unit: tab(s) Repeat number: 6Start: 81-94-5448nknc 1 tablet by mouth once dailyClopidogrel Bisulfate 75 MG Oral Tablet TAKE 1 TABLET BY MOUTH EVERY DAY Quantity: 90 Refills: 3 Ordered: 19-Aug-2022 Aaron Ocampo MD Start : 21-Feb-2021 ActiveStart: 07-04-2019 End: 08-00-8260sxua 75 mg by mouth once dailyClopidogrel Discontinued 75 MG PO Daily July 04, 2019 12:00am September 07, 2019 2:50pmclotrimazole 10 mg oral lozenge (4 sources)Azole AntifungalStart: 04-03-2020 End: 44-29-2727Ozqlavglosts Active 10 MG MUCOUS MEM Four times daily April 02, 2020 11:00pmcyclobenzaprine hydrochloride 5 mg oral tablet (20 sources)Muscle RelaxantStart: 11-25-2022 End: 73-68-0653ngfrukaoprnopmx 5 mg Tab Refills(s) 0 Start Date: 11/25/22 Status: Orderedtake 1 tablet by mouth three times daily as neededCyclobenzaprine HCl - 5 MG Oral Tablet TAKE 1 TABLET 3 TIMES DAILY NEEDED. Quantity: 0 Refills: 0 Ordered: 07-Jul-2021 DO Activeezetimibe 10 mg oral tablet (3 sources)Dietary Cholesterol Absorption InhibitorStart: 11-80-5042iqju 1 tablet by mouth once dailyZetia 10 mg Tab 10 mg = 1 tab(s), Oral, Daily, # 30 tab(s), Refills(s) 6, Pharmacy: [facility]/pharmacy #[id number], 167, cm, 08/01/24 7:46:00 EST, Height/Length Dosing, 111, kg, 01/07/25 7:46:00 EST, Weight Dosing Start Date: 08/01/24 Status: Ordered Quantity: 30.0 Unit: tab(s) Repeat number: 7 furosemide 40 mg oral tablet (20 sources)Loop DiureticStart: 16-27-5472rbij 1 tablet by mouth once daily furosemide 40 mg Tab 40 mg = 1 tab(s), Oral, Daily, # 30 tab(s), Refills(s) 0 Start Date: 11/25/22 Status: Ordered Quantity: 30.0 Unit: tab(s) Repeat number: 1 Start: 09-07-2019 End: 73-47-8627oqnw 40 mg by mouth twice dailyFurosemide Discontinued 40 MG PO Twice daily 60 September 07, 2019 12:00am April 03, 2020 2:29pmStart: 11-19-2018 End: 22-51-6840ivan 40 mg by mouth twice dailyFurosemide Discontinued 40 MG PO Twice daily November 18, 2018 11:00pm August 31, 2019 4:38amStart: 10-10-2018 End: 79-81-1910eouz 20 mg by mouth once dailyFurosemide Discontinued 20 MG PO Daily October 09, 2018 11:00pm November 19, 2018 5:50pmStart: 06-06-2018 End: 93-74-7410kogb 40 mg by mouth twice dailyFurosemide Discontinued 40 MG PO BID@0800,1600 60 June 14, 2018 12:00am August 25, 201810:11am gabapentin 100 mg oral capsule (20 sources)Anti-epileptic AgentStart: 35-12-7260epzk 1 capsule by mouth three times dailygabapentin (NEURONTIN) 100 MG capsule Take 1 Capsule by mouth 3 times daily for 120 days. 90 Capsule 3 10/20/2020 Iowbgm55 hr isosorbide mononitrate 30 mg extended release oral tablet (11 sources)Nitrate VasodilatorStart: 38-11-5871zdez 1 tablet by mouth once dailyIsosorbide Mononitrate Active 30 MG PO Daily April 02, 2020 11:00pm TAKE 1 TABLET BY MOUTH EVERY DAYStart: 07-04-2019 End: 18-09-3112wrld 30 mg by mouth once dailyIsosorbide Mononitrate Discontinued 30 MG PO Daily July 04, 2019 12:00am August 31, 2019 4:41amisosorbide mononitrate (MONOKET) 10 MG tablet Take 30 mg by mouth daily. ActivelevoFLOXacin 500 mg oral tablet (4 sources)Quinolone AntimicrobialStart: 88-63-5756iqkn 500 mg by mouth once dailyLevofloxacin Active 500 MG PO Daily 01 29April 04, 2020 11:00pmStart: 11-19-2018 End: 93-93-8485nhyn 750 mg by mouth once dailyLevofloxacin Discontinued 750 MG PO Daily November 18, 2018 11:00pm July 04, 2019 4:17pmlevothyroxine sodium 0.2 mg oral tablet (20 sources)l-ThyroxineStart: 67-03-4762dojt 1 tablet by mouth once daily levothyroxine 200 mcg (0.2 mg) Tab 200 mcg = 1 tab(s), Oral, Daily, # 30 tab(s), Refills(s) 0 StartDate: 11/25/22 Status: Ordered Quantity: 30.0 Unit: tab(s) Repeat number: 1Start: 53-96-4063qyvp 1 tablet by mouth once daily at [...] DO ActiveLidocaine (20 sources)Antiarrhythmic, Amide Local AnestheticStart: 68-91-0339okikonhmp 5% patch Refill(s) 0 Start Date: 11/25/22 Status: Ordered Repeat number: 1Start: 89-57-9990enyamabmr 5% patch Refill(s) 0 Start Date: 11/25/22 Status: Ordered Start: 78-28-5986okowy 1 dose transdermal route once daily in the morning lidocaine (LIDODERM) 5 % patch Place 1 Patch on the skin every morning. 10 Patch 3 10/20/2020 Active End: 12-84-7647Cdhbqvrox 4 % patch 1 (one) time each day at the same time. 03/07/2025 DiscontinuedLidocaine 5 % External Patch APPLY DIRECTED. Quantity: 0 Refills: 0 Ordered: 07-Jul-2021 DO Activelisinopril 2.5 mg oral tablet (20 sources)Angiotensin Converting Enzyme InhibitorStart: 46-60-8175miou 1 tablet by mouth once dailylisinopril 2.5 mg Tab 2.5 mg = 1 tab(s), Oral, Daily, # 30 tab(s), Refills(s) 5, Pharmacy: [facility]/pharmacy #[id number], 167, cm, 05/24/24 13:49:00 EDT, Height/Length Dosing, 110.8, kg, 05/24/24 13:49:00 EDT, Weight Dosing Start Date: 05/26/24 Status: Ordered Quantity: 30.0 Unit: tab(s) Repeat number: 6Start: 67-88-4384jdux 1 tablet by mouth once dailyLisinopril 2.5 MG Oral Tablet TAKE 1 TABLET DAILY. Quantity: 90 Refills: 3 Ordered: 19-Aug-2022 Aaron Ocampo MD Start : 30-Apr-2021 ActiveStart: 09-07-2019 End: 64-73-9205myov 1 tablet by mouth once dailyLisinopril 2.5 MG Oral Tablet TAKE 1 TABLET DAILY. Quantity: 90 Refills: 3 Ordered: 01-May-2021 Aaron Ocampo MD Start : 30-Apr-2021 ActiveStart: 06-06-2018 End: 62-87-1963hkhk 2.5 mg by mouth once dailyLisinopril Discontinued 2.5 MG PO Daily June 14, 2018 12:00am August 31, 2019 4:38amloperamide hydrochloride 2 mg oral capsule (20 sources)Opioid AgonistStart: 71-77-5128vuad 1 capsule by mouth every four hours [...] ActiveLORazepam 0.5 mg oral tablet (20 sources)BenzodiazepineStart: 72-52-5015yrws 0.25 mg by mouth onceLORazepam 0.5 mg Tab 0.25 mg = 0.5 tab(s), Oral, Once, Refills(s) 0 Start Date: 11/25/22 Status: OrderedStart: 04-03-2020 End: 93-97-3698viaa 0.5 mg by mouth at bedtimeLorazepam Active 0.5 MG PO Bedtime April 02, 2020 11:00pmStart: 08-31-2019 End: 54-00-6249uvbd 0.5 mg under the tongue every six hoursLorazepam Discontinued 0.5 MG SUBLINGUAL Q6H August 31, 2019 12:00am September 07, 2019 2:50pmStart: 06-14-2018 End: 04-80-7940hdpw 0.5 mg by mouth every six hoursLorazepam Discontinued 0.5 MG PO Q6H 12 12June 14, 2018 12:00am August 24, 2018 4:09am24 hr metoprolol succinate 100 mg extended release oral tablet (4 sources)beta-Adrenergic BlockerStart: 88-54-7034ctgb 1 tablet by mouth once dailyToprol XL 100 mg Tab-ER 100 mg = 1 tab(s), Oral, Daily, # 30 tab(s), Refills(s) 6, Pharmacy: [facility]/pharmacy #[id number], 167, cm, 08/24/24 13:40:00 EST, Height/Length Dosing, 111, kg, 08/24/24 13:46:00 EST, Weight Dosing Start Date: 08/24/24 Status: Ordered Quantity: 30.0 Unit: tab(s) Repeat number: 7Start: 49-77-2093aaex 1 tablet by mouth every twenty-four hoursToprol XL 100 MG 24 hr tablet Take 150 mg by mouth 08/24/2024 ActivemetroNIDAZOLE 500 mg oral tablet (4 sources)Nitroimidazole AntimicrobialStart: 61-91-0155iokc 1 tablet by mouth every eight hoursMetronidazole (Flagyl) 500 mg tablet Active 500 MG PO Q8H 12 02April 04, 2020 11:00pmStart: 11-19-2018 End: 31-18-4264ejlf 500 mg by mouth four times dailyMetronidazole Discontinued 500 MG PO Four times daily November 18, 2018 11:00pm July 04, 2019 4:17pm naloxone hydrochloride 40 mg/ml nasal spray (7 sources)Opioid AntagonistStart: 50-87-3889dyznrqsh 4 mg/0.1 mL nasal liquid Use 1 [place] in one nostril (alternate sides) as needed for Drug Overdose every 2-3 mins. until help arrives. 2 Each 1 05/04/2021 Activeondansetron 4 mg disintegrating oral tablet (20 sources)Serotonin-3 Receptor AntagonistStart: 97-94-0643ppzobwzlyco ODT (Zofran-ODT) 4 MG disintegrating tablet Indications: Diverticulitis of intestine, part unspecified, with perforation and abscess without bleeding DISSOLVE 1 TABLET UNDER TONGUE ONCE ADAY AT THE SAME TIME EACH DAY 20 tablet 11/03/2024 ActiveStart: 48-51-2405fgbh 1 tablet by mouth every six hours as needed for nauseaondansetron 4 mg Dis Tab 4 mg = 1 tab(s), Oral, q6hr, PRN Nausea/Vomiting, # 12 tab(s), Refills(s) 0 Start Date: 11/25/22 Status: Ordered Quantity: 12.0 Unit: tab(s) Repeat number: 1Start: 11-19-2018 End: 82-04-8996tdek 1 tablet by mouth once dailyondansetron ODT [...] jr) CHEW oral chew tab (7 sources)Start: 56-10-8345wyvt 1 tablet by mouth once dailyPediatric Multivitamins-Iron (cerovite jr) CHEW oral chew tab Take 1 Tablet by mouth daily. 30 Tablet 2 10/20/2020 Activesennosides, [facility] 8.6 mg oral tablet (7 sources)Start: 23-10-6057snyh 1 tablet by mouth at bedtimesenna (SENOKOT) 8.6 MG tablet Take 1 Tablet by mouth at bedtime. 30 Tablet 05/05/2021 Activesodium chloride 9 mg/ml inhalation solution (8 sources)Start: 54-49-1694sizjvy chloride 0.9% Inh Noemy 3 mL Refill(s) 0 Start Date: 11/25/22 Status: OrderedStart: 27-01-2249nivmkq chloride 0.9% Inh Noemy 3 mL Refill(s) 0 Start Date: 11/25/22 Status: OrderedStart: 02-65-4955rdxi 1 mL by inhalation three times dailySodium Chloride Active 3 ML INHALATION Three times daily April 02, 2020 11:00pmspironolactone 25 mg oral tablet (20 sources)Aldosterone AntagonistStart: 98-21-7706xzfx 1 tablet by mouth once dailyspironolactone 25 mg Tab 25 mg = 1 tab(s), Oral, Daily, # 30 tab(s), Refills(s) 5, Pharmacy: [facility]/pharmacy #[id number], 167, cm, 05/24/24 13:49:00 EDT, Height/Length Dosing, 110.8, kg, 05/24/24 13:49:00 EDT, Weight Dosing Start Date: 05/26/24 Status: Ordered Quantity: 30.0 Unit: tab(s) Repeat number: 6Start: 89-78-8021mewx 1 tablet by mouth once dailySpironolactone (Aldactone) 25 mg tablet Active 25 MG PO Daily April 03, 2020 2:28pmStart: 09-07-2019 End: 51-86-6675ssjo 25 mg by mouth twice dailySpironolactone Discontinued 25 MG PO Twice daily September 07, 2019 12:00am April 03, 2020 2:29pm Start: 06-14-2018 End: 79-01-5956soqx 25 mg by mouth once dailySpironolactone Discontinued 25 MG PO Daily June 14, 2018 12:00am August 31, 2019 4:38amStart: 06-06-2018 End: 79-59-5081fyur 25 mg by mouth twice dailySpironolactone Discontinued 25 MG PO Twice daily 60 June 06, 2018 12:00am June 14, 2018 12:56pm Symbicort 160/4.5 inhalation aerosol with adapter (1 source)Start: 93-95-2128uthq 2 puff(s) by inhalation twice dailySymbicort 160/4.5 inhalation aerosol with adapter 2 puff(s), Inhalation, BID, Refill(s) 0 Start Date: 11/25/22 Status: Lvmrgac80 actuat tiotropium 0.0025 mg/actuat inhalation spray (20 sources)AnticholinergicStart: 25-47-2382ojsf 2 puff(s) by inhalation once dailytiotropium (Spiriva Respimat) 2.5 MCG/ACT inhaler Indications: Chronic obstructive pulmonary disease, unspecified COPD type (HCC) Inhale 2 puffs 1 (one) time each day at the same time 3 each 3 03/07/2025 ActiveStart: 11-25-2022 Spiriva Respimat 60 ACT 2.5 mcg/inh inhalation aerosol Refills(s) 0 Start Date: 11/25/22 Status: OrderedStart: 03-30-2038zuyk 2 puff(s) by mouth once daily Tiotropium [place] (Spiriva Respimat) 2.5 mcg/actuation mist Active 2 PUFF INHALATION Daily April 02, 2020 11:00pm INHALE 2 PUFFS BY MOUTH EVERYDAY End: 87-00-1946Wfjiptd Respimat 2.5 MCG/ACT inhaler 1 (one) time each day at the same time. 03/07/2025 Discontinued (Reorder)Tiotropium [place] Monohydrate (Spiriva Respimat) 2.5 MCG/ACT AERS 2 puffs Activetake 2 puff(s) by inhalation once dailySpiriva Respimat 2.5 MCG/ACT Inhalation Aerosol Solution INHALE 2 PUFFS ONCE DAILY Quantity: 0 Refills: 0 Ordered: 07-Jul-2021 DO ActivetraZODone hydrochloride 50 mg oral tablet (10 sources)Serotonin Reuptake InhibitorStart: 25-77-3373vjuf 1 tablet by mouth at bedtimetraZODone (Desyrel) 50 MG tablet Indications: Insomnia, unspecified type TAKE 1 TABLET BY MOUTH AT BEDTIME 30 tablet 02/21/2025 ActiveStart: 66-04-5638cemlkkgvz Oral, Refills(s) 0 Start Date: 05/24/24 Status: Ordered Start: 01-17-2024 End: 28-88-0305djru 1 tablet by mouth at bedtimetraZODONE 50 mg Tab TAKE 1 TABLET BY MOUTH AT BEDTIME Start Date: 12/01/24 Status: Ordered Repeat number: 1 Completed/Discontinued Medications MedicationDrug Class(es)DatesSig (Normalized)Sig (Original)acetaminophen 325 mg oral tablet (9 sources)Start: 06-14-2018 End: 81-16-5388czki 650 mg by mouth every four hoursAcetaminophen [...] solution (2 sources)Anticholinergic, beta2-Adrenergic AgonistStart: 09-07-2019 End: 54-05-9406thky 1 mL by inhalation four times dailyIpratropium-Albuterol Discontinued 3 ML INHALATION Four times daily - Respiratory 120 September 072019 12:00am April 03, 2020 2:28pmapixaban 5 mg oral tablet (4 sources)Factor Xa InhibitorStart: 09-07-2019 End: 52-95-7167brwf 1 tablet by mouth twice dailyApixaban (Eliquis) 5 mg Tablet Discontinued 5 MG PO Twice daily 60 September 07, 2019 12:00am April 03, 2020 2:28pmazithromycin 250 mg oral tablet (2 sources)Macrolide AntimicrobialStart: 01-12-2024 End: 88-09-0180sjfe 2 tablets by mouth once daily, then take 1 tablet by mouth once dailyazithromycin (Zithromax) 250 MG tablet Indications: COPD with acute exacerbation (CMS/HCC) Take 2 tablets (500 mg) by mouth Daily for 1 day, THEN 1 tablet (250 mg) Daily for 4 days. 6 tablet 01/12/2024 01/17/2024 Discontinued (Therapy completed)bisacodyl 5 mg delayed release oral tablet (2 sources)Stimulant LaxativeStart: 08-24-2018 End: 06-33-0978uiin 5 mg by mouth once dailyBisacodyl Discontinued 5 MG PO Daily August 24, 2018 12:00am August 31, 2019 4:41amdocusate sodium 100 mg oral capsule (19 sources)Start: 08-31-2019 End: 16-91-2748ebpt 1 capsule by mouth twice dailyDocusate Sodium (Colace) 100 mg Capsule Discontinued 100 MG PO Twice daily August 31, 2019 12:00am September 07, 2019 2:50pm End: 83-58-5110Yjpuhnov Sodium (DSS) 100 MG capsule 1 (one) time each day at the same time. 03/07/2025 Discontinueddoxycycline hyclate 100 mg oral capsule (2 sources)Tetracycline-class DrugStart: 07-26-2018 End: 22-42-7421xaus 100 mg by mouth twice dailyDoxycycline Hyclate Discontinued 100 MG PO Twice daily 12 July 26, 2018 12:00am August 01, 2018 12:01am Ergocalciferol (2 sources)Provitamin D2 CompoundStart: 07-07-2019 End: 50-56-0582Oxksaevytcstue (Vitamin D2) Discontinued 83688 UNIT PO We@0900 7 July 07, 2019 12:00am August 31, 2019 4:41amStart: 07-07-2019 End: 09-06-4099Jguijplfaqashz (Vitamin D2) Discontinued 53613 UNIT PO We@0900 7 July 07, 2019 1:00am August 31, 2019 5:28uy494 actuat fluticasone propionate 0.11 mg/actuat metered dose inhaler (11 sources)CorticosteroidStart: 07-04-2019 End: 20-12-7079cbif 1 puff(s) by mouth twice dailyFluticasone Propionate (Flovent Hfa) 110 mcg/actuation HFA aerosol inhaler Discontinued 1 PUFF INHAL ATION Twice daily April 02, 2020 11:00pm April 04, 2020 1:46pm TAKE 1 PUFF BY MOUTH TWICE A DAYtake 1 puff(s) by mouth twice dailyfluticasone (FLOVENT HFA) 110 MCG/ACT inhaler Inhale 1 Puff by mouth 2 times daily. Active Bxgokiazfyh-Lmquuovkf-Rphzng (Trelegy Ellipta) 200-62.5-25 MCG/ACT aerosol powder (5 sources)Start: 04-26-2024 End: 98-29-1614yzhb 1 puff(s) by inhalation once daily Qwrdujjucpv-Brgpfhcka-Bkbxxb (Trelegy Ellipta) 200-62.5-25 MCG/ACT aerosol powder Indications: Chronic obstructive pulmonary disease, unspecified COPD type (HCC) Inhale 1 puff Daily 1 each 5 04/26/2024 03/07/2025 DiscontinuedStart: 00-42-5906jdxu 1 puff(s) by inhalation once vmuniUxuoaqsqads-Lgtdapzax-Frhgtb (Trelegy Ellipta) 200-62.5-25 MCG/ACT aerosol powder Indications: Chronic obstructive pulmonary disease, unspecified COPD type (HCC) Inhale 1 puff Daily 1 each 5 04/26/2024 ActiveStart: 31-17-9644dsgj 1 puff(s) by inhalation once zduwdAmazfdtzvcf-Fmyslzzjs-Bfqyhl (Trelegy Ellipta) 200-62.5-25 MCG/ACT aerosol powder Indications: Chronic obstructive pulmonary disease, unspecified COPD type (CMS/HCC) Inhale 1 puff Daily 1 each 5 04/26/2024 Yurfxa44 hr guaiFENesin 600 mg extended release oral tablet (6 sources)Start: 07-07-2019 End: 91-26-4828povt 2 tablets by mouth twice daily, then take 1 tablet by mouth every twelve hoursGuaifenesin (Mucinex) 600 mg Tablet Extended Release 12hr Discontinued 1200 MG PO Twice daily 20 July 07, 2019 12:00am August 31, 2019 4:41amStart: 08-18-2018 End: 48-64-9233urpz 1200 mg by mouth every twelve hoursGuaifenesin Discontinued 1200 MG PO Q12H 05 02August 18, 2018 12:00am August 25, 2018 12:02amStart: 07-26-2018 End: 22-94-0820geso 1 tablet by mouth every twelve hours, then take 1 tablet by mouth every twelve hoursGuaifenesin (Mucinex) 600 mg tablet extended release 12hr Discontinued 600 MG PO Q12H July 26, 2018 12:00August 18, 2018 12:36pmhydrOXYzine pamoate 25 mg oral capsule (2 sources)AntihistamineStart: 06-06-2018 End: 40-24-1748bsfo 25 mg by mouth every six hoursHydroxyzine Pamoate Discontinued 25 MG PO Q6H June 06, 2018 12:00am June 14, 2018 12: 53pmipratropium bromide 0.2 mg/ml inhalation solution (2 sources)AnticholinergicStart: 07-26-2018 End: 60-42-0874szva 1 mL by inhalation every eight hoursIpratropium [place] Discontinued 1.25 ML INHALATION Q8H July 26, 2018 12:00am August 31 4:41ammethylPREDNISolone 4 mg oral tablet (2 sources)CorticosteroidStart: 07-07-2019 End: 14-92-2177wkms 1 tablet by mouth onceMethylprednisolone (Medrol (Blue)) 4 mg tablets,dose pack Discontinued 0 PO .COMPLEX July 07, 2019 12:00am August 31, 2019 4:41am orally per package directionsmicroencapsulated potassium chloride 20 meq extended release oral tablet (20 sources)Start: 39-18-4745rtds 1 tablet by mouth once dailyKlor-Con M20 oral tablet, extended release 20 mEq = 1 tab(s), Oral, Daily, # 30 tab(s), Refills(s) 0 Start Date: 11/25/22 Status: Ordered Quantity: 30.0 Unit: tab(s) Repeat number: 1Start: 55-36-1082kcub 2 tablets by mouth once dailyKlor-Con M20 20 MEQ Oral Tablet Extended Release TAKE 2 TABLETS BY MOUTH DAILY Quantity: 60 Refills: 0 Ordered: 18-Aug-2022 Aaron Sanz DO Start : 27-Apr-2021 ActiveStart: 41-14-8841wbxy 2 tablets by mouth once dailyKlor-Con M20 20 MEQ Oral Tablet Extended Release TAKE 2 TABLETS BY MOUTH DAILY Quantity: 180 Refills: 3 Ordered: 22-Jul-2021 Paty Gage Start : 27-Apr-2021 ActiveStart: 61-70-4019rsuz 2 tablets by mouth once dailyKlor-Con M20 20 MEQ Oral Tablet Extended Release TAKE 2 TABLETS BY MOUTH DAILY Quantity: 60 Refills: 0 Ordered: 17-Jun-2021 Aaron Sanz DO Start : 27-Apr-2021 ActiveStart: 99-51-6989ospu 2 tablets by mouth once dailyPotassium Chloride (Klor-Con M20) 20 mEq tablet,ER particles/crystals Active 40 MEQ PO Daily April 02, 2020 11:00pm TAKE 2 TABLETS BY MOUTH DAILYStart: 10-10-2018 End: 76-84-1289Tpaxbjzya Chloride (K-Tab) 20 mEq Tablet Extended Release Discontinued 40 mEq/day PO Daily October 09, 2018 11:00pm September 07, 2019 2:50pmStart: 06-14-2018 End: 25-83-3766Vzivouydn Chloride (Klor-Con M20) 20 mEq Tablet,Er Particles/Crystals Discontinued 40 MEQ PO Daily 60 June 14, 2018 12:00am August 25, 2018 10:11amprednisoLONE 10 mg disintegrating oral tablet (2 sources)CorticosteroidStart: 07-26-2018 End: 43-16-6487Evazbveqtizc Sodium Phosphate Discontinued 10 MG PO As Directed July 26, 2018 12:00am August 17, 2018 2:04pm 40 mg for 3 days, 30 mg for 3 days, 20 mg for 3 days, 10 mg for 3 days then stoppredniSONE 10 mg oral tablet (20 sources)Start: 06-04-2024 End: 92-90-9349dboiunUYFW (Deltasone) 10 MG tablet PLEASE SEE ATTACHED FOR DETAILED DIRECTIONS 06/04/2024 03/07/2025 DiscontinuedStart: 01-12-2024 End: 85-87-2792krcf 1 tablet by mouth three times daily, [...] 2 days. 21 tablet 01/12/2024 01/21/2024 ExpiredStart: 34-17-9276ffbq 60 mg by mouth once daily at mealtimePrednisone Active 60 MG PO Daily November 27, 2020 11:00pm administer with food or milkStart: 69-62-2112rdjm 40 mg by mouth once dailyPrednisone Active 40 MG PO Daily 10 April 04, 2020 11:00pmStart: 09-07-2019 End: 98-33-6456Jjslbfsttm Discontinued 10 MG PO Daily September 07, 2019 12:00am April 03, 2020 2:29pm 40mg for 2 days, 30 mg for 2 days, 20 mg for 2 days, 10 mg for 2 days then stopStart: 10-11-2018 End: 52-71-3649Vqmqcjbxcz Discontinued 10 MG PO Daily October 10, 2018 11:00pm November 19, 2018 5:52pm take 60mg (6 tabs aday) for 3 days, then 40mg (4tabs) for 3 days, then 20mg (2tabs) for 3 days, then 10mg (1tab) for 3 days. Start: 08-18-2018 End: 82-08-1303Roaupnnswi Discontinued 10 MG PO Daily August 18, 2018 12:00am August 25, 2018 10:11am take 40mg (4tabs) for 3 days, then 20mg (2tabs) for 3 days, then 10mg (1tab) for 3 days.Start: 07-26-2018 End: 68-91-1143Mhioimkgrg Discontinued 10 MG PO As Directed July 26, 2018 12:00am August 17, 2018 2:04pm40 mg for 3 days, 30 mg for 3 days, 20 mg for 3 days then 10 mg for 3 days then stopStart: 06-06-2018 End: 60-12-1619obag 10 mg by mouth once daily for chronic obstructive pulmonary diseasePrednisone Discontinued 10 MG PO Daily June 06, 2018 12:00am June 14, 2018 12:55pm please start on 06/11/2018 after finished 20 mg prednisone. For COPDStart: 06-06-2018 End: 23-55-3188bowv 20 mg by mouth once dailyPrednisone Discontinued 20 MG PO Daily 4 June 06, 2018 12:00am June 14, 2018 12:53pmticagrelor 90 mg oral tablet (8 sources)Start: 06-06-2018 End: 15-95-7553bzko 1 tablet by mouth twice dailyTicagrelor (Brilinta) 90 mg Tablet Discontinued 90 MG PO Twice daily 60 June 14, 2018 12:00am July 26, 2018 3:36pm Problems Active Problems Problem ClassificationProblemDateDocumented DateEpisodic/ChronicAcute bronchitis (2 sources)Acute bronchitis; Translations: [Acute bronchitis, unspecified] 12-66-7815VhgklsbdAnnxq cerebrovascular disease (9 sources)Cerebral infarction; Translations: [Cerebral infarction, unspecified] Onset: 413347-63-2783CaefipaPqdjgpbthsblnk/social admission (2 sources)Other reduced mobility; Translations: [Impaired mobility and activities of daily living]37-80-0412QnvkjkdxDapylvm disorders (20 sources)Anxiety; Translations: [Anxiety disorder, unspecified]Onset: 244730-93-4121ArmyiojZjccrigdq and vision defects (2 sources)Eye / vision finding; Translations: [Unspecified visual disturbance] 12-08-7030TxkgszqhByyzkds dysrhythmias (20 sources)Cardiac arrhythmia, unspecified; Translations: [Ventricular tachycardia]Onset: 325642-82-4489AwqnlonZsmaaxa obstructive pulmonary disease and bronchiectasis (20 sources)Chronic obstructive pulmonary disease, unspecified; Translations: [Chronic obstructive lung disease]Onset: 10-13-2018 Resolved: 720054-70-0114BriybxkLbmidescsm disorders (20 sources)Patient encounter status; Translations: [Fitting and adjustment of automatic implantable cardiac defibrillator]Onset: 05-06-2022 Resolved: 86-93-1655BetxfddFrsxzlotck heart failure; nonhypertensive (20 sources)Heart failure, unspecified; Translations: [Heart failure with reduced ejection fraction]Onset: 08-26-2018 Resolved: 752906-87-0248DjajmwqWaapiyca atherosclerosis and other heart disease (20 sources)Ischemic cardiomyopathy; Translations: [Atherosclerotic heart disease of [place] coronary artery without angina pectoris]Onset: 10-13-2018 Resolved: 408409-42-4172JjmuiriAmucbgwa atherosclerosis and other heart disease (2 sources)Coronary angioplasty status; Translations: [Coronary angioplasty status]Onset: 75-38-4600NsyrrrqhBoczappx mellitus without complication (2 sources)Impaired fasting glycemia; Translations: [Impaired fasting glucose] 57-44-6047OlhslvbuDesvloxzi of lipid metabolism (12 sources)Hyperlipidemia; Translations: [Hyperlipidemia, unspecified]Onset: 379852-00-4036SozcihzEztymxuluiqvtx and diverticulitis (20 sources)Diverticulitis of large intestine; Translations: [Diverticulitis of large intestine with perforation and abscess without bleeding]Onset: 11-20-2018 Resolved: 446630-34-9656DwbwijlXpzcwkrmx hypertension (20 sources)Essential (primary) hypertension; Translations: [Benign essential hypertension]Onset: 183885-76-7075OvsqsceIyrmm valve disorders (9 sources)Mitral valve disorder; Translations: [Other nonrheumatic mitral valve disorders]Onset: 701898-44-4887ZbzxlfkYmgapqzixdgs with complications and secondary hypertension (1 source)Hypertensive heart disease with heart failureOnset: 59-55-4137Neytlma Late effects of cerebrovascular disease (9 sources)Hemiparesis as late effect of cerebrovascular disease; Translations: [Hemiplegia and hemiparesis following unspecified cerebrovascular disease affecting right dominant side]Onset: 444479-87-5591JhjtwqeAanxiorphfq chest pain (4 sources)Chest pain; Translations: [Chest pain, unspecified]68-82-1872Uatksryw Other aftercare (20 sources)Drug therapy finding; Translations: [Long-term (current) use of other medications]EpisodicOther gastrointestinal disorders (12 sources)Ileostomy present; Translations: [Encounter for attention to ileostomy]Onset: 576050-47-2771PxvqtapTujjx gastrointestinal disorders (18 sources)Colostomy present; Translations: [Encounter for attention to colostomy]Onset: 12-12-2019 Resolved: 508251-51-6965GtfjogaQhsod gastrointestinal disorders (1 source)Colostomy status; Translations: [COLOSTOMY STATUS]Onset: 08-01-2021 ChronicOther gastrointestinal disorders (1 source)Ileostomy status; Translations: [Ileostomy status (HCC)]Onset: 81-74-4548WbnnzjbVhyzy hematologic conditions (2 sources)Raised cardiac enzyme or marker; Translations: [Other specified abnormalities of plasma proteins]94-11-9366IofhtpgePahzb lower respiratory disease (2 sources)Pulmonary edema; Translations: [Chronic pulmonary edema]07-04-2019 ChronicOther nervous system disorders (9 sources)Aphasia; Translations: [Aphasia]Onset: 893834-52-6009Gzhnvwf Other nervous system disorders (9 sources)Cognitive deficit in communication skills; Translations: [Cognitive communication deficit]Onset: 946449-98-8917NbvbpxrZlrdl nervous system disorders (9 sources)Difficulty walking; Translations: [Difficulty in walking, not elsewhere classified]Onset: 231990-09-3943OebzguqXtywi nutritional; endocrine; and metabolic disorders (1 source)Obesity, unspecifiedOnset: 23-67-0252TundcqrOmbyo nutritional; endocrine; and metabolic disorders (3 sources)Body mass index 30+ - obesity; Translations: [Body Mass Index 34.0- 34.9, adult]ChronicOther nutritional; endocrine; and metabolic disorders (20 sources)Obesity; Translations: [Obesity, unspecified]Onset: 03-25-2020 74-86-3489PsfjdoxQjuyx nutritional; endocrine; and metabolic disorders (1 source)Morbid (severe) obesity due to excess calories; Translations: [MORBID SEVERE OBES D/T EXCESS NEHA]Onset: 29-31-8769SeocchuUuruc nutritional; endocrine; and metabolic disorders (1 source)Body mass index (BMI) 32.0-32.9, adult; Translations: [BODY MASS INDEX BMI 32.0-32.9 ADULT]Onset: 17-25-3238IubmklvWzbum nutritional; endocrine; and metabolic disorders (12 sources)Obesity caused by energy imbalance; Translations: [Other obesity due to excess calories]Onset: 228177-12-0259DcnkstfIdkr-; endo-; and myocarditis; cardiomyopathy (except that caused by tuberculosis or sexually transmitted disease) (11 sources)Cardiomyopathy; Translations: [Cardiomyopathy, unspecified]Onset: 943668-79-0085AplkglaMhldtacy codes; unclassified (11 sources)Sleep apnea; Translations: [Sleep apnea, unspecified]Onset: 808158-98-6811SpgfioqSksmhjpe codes; unclassified (1 source)Obstructive sleep apnea (adult)(pediatric); Translations: [Obstructive sleep apnea (adult) (pediatric)]Onset: 06-26-5007YdeskboGkikadkv codes; unclassified (1 source)Hypersomnia; Translations: [Hypersomnia, unspecified]17-17-9996Jhmudtk Residual codes; unclassified (9 sources)Nicotine-filled electronic cigarette user; Translations: [Tobacco use disorder]EpisodicComment on above:one electronic device a week;Residual codes; unclassified (2 sources)Patient encounter status; Translations: [Encounter for prophylactic measures, unspecified]65-55-9640HexcacqyYhelgbtctew failure; insufficiency; arrest (adult) (2 sources)Dbdgr-hl-iiuxjlx respiratory failure; Translations: [Acute and chronic respiratory failure with hypoxia]66-43-8696JvawkdxUoochngyb-related disorders (16 sources)Smoker; Translations: [Nicotine dependence, unspecified, uncomplicated]Onset: 08-01-2021 Resolved: 438290-25-0571VdyyhadZrqwbgi disorders (20 sources)Hypothyroidism; Translations: [Unspecified acquired hypothyroidism] Onset: 03-25-2020 Resolved: 400739-79-4032BcltbxaJfhtmvfousqg (3 sources)Cardiomyopathy, unspecified; Translations: [Cardiomyopathy, unspecified]Onset: 77-18-9014Pfczzogmloeb (1 source)Encntr for adjust and mgmt of automatic implntbl card defibOnset: 07-25-5762Mmuidmhodnur (1 source)Family hx of ischem heart dis and oth dis of the circ sysOnset: 12-42-0539Vujaibrxnebg (1 source)CONTACT W/AND (SUSP) EXPOS COVID-19; Translations: [CONTACT W/AND (SUSP) EXPOS COVID-19]Onset: 08-01-2021 Past or Other Problems Problem ClassificationProblemDateDocumented DateEpisodic/ChronicAcute myocardial infarction (9 sources)Myocardial infarction; Translations: [Non-ST elevation (NSTEMI) myocardial infarction]Onset: 06-27-2024 Resolved: 167728-60-1522IlfxuvwSsnmirrhnuney of surgical procedures or medical care (14 sources)Colostomy malfunction; Translations: [Colostomy malfunction]Onset: 06-14-2020 Resolved: 318678-18-9153ZcxqnjrYylunhxpqoupa of surgical procedures or medical care (16 sources)Drug-induced hypotension; Translations: [Hypotension due to drugs] Onset: 335484-09-2362EfszgzeuQtixhojgkd associated with dizziness or vertigo (20 sources)Dizziness; Translations: [Dizziness and giddiness]Onset: 01-11-2024 Resolved: 693993-75-6929QemvuylsNjomj and electrolyte disorders (11 sources)Hyponatremia; Translations: [Hypo-osmolality and hyponatremia]Onset: 01-17-2024 Resolved: 140519-83-6453YljntddsVgqhbgjutwtkfuqq hemorrhage (16 sources)Lower gastrointestinal hemorrhage; Translations: [Gastrointestinal hemorrhage, unspecified]Onset: 271224-48-4298GielditkYjwkxux (16 sources)Candidiasis of mouth; Translations: [Candidal stomatitis]Onset: 798918-91-9664IsgpezziKklmicvxnzvru gastroenteritis (16 sources)Colitis; Translations: [Noninfective gastroenteritis and colitis, unspecified]Onset: 091010-18-9403OfdxotzbVczjthocbde deficiencies (6 sources)Vitamin D deficiency, unspecified; Translations: [Vitamin D deficiency]Onset: 06-08-2022 Resolved: 252109-51-1195OgtzbrjEvxxq aftercare (1 source)snf (current) use of aspirin; Translations: [[employer]PER[employer] CURRENT USE OF ASPIRIN]Onset: 20-20-9783ZcoffxotOasry aftercare (1 source)Other salvage determiner (current) drug therapy; Translations: [OTH GROUP HOME CURRENT DRUG THERAPY]Onset: 28-58-3108FxxbwcoxDvvpi circulatory disease (1 source)Personal history of sudden cardiac arrest; Translations: [PERSONAL HISTORY SUDDEN CARD ARREST]Onset: 14-07-4580PjkuuuhqRcrdj connective tissue disease (11 sources)Muscle weakness; Translations: [Muscle weakness (generalized)]Onset: 463220-78-5059ZhzmgqzaMzizz gastrointestinal disorders (15 sources)Intra-abdominal collection; Translations: [Other ascites]Onset: 884764-48-1661ZurzmibdKwiwd gastrointestinal disorders (1 source)Abdominal mass; Translations: [Other ascites]Onset: 08-18-2019 20-99-1277OspwfhykLcmjv lower respiratory disease (11 sources)Dyspnea; Translations: [Shortness of breath]Onset: 09-07-2019 27-90-3043IuvkifhvAtrmy nervous system disorders (5 sources)Bilateral carpal tunnel syndrome; Translations: [Carpal tunnel syndrome, bilateral upper limbs]Onset: 06-27-2024 Resolved: 983425-13-1563LkmjswfEmycc screening for suspected conditions (not mental disorders or infectious disease) (16 sources)Prolonged QT interval; Translations: [Abnormal electrocardiogram [ECG] [EKG]]Onset: 712120-30-5160GuhpodsvCkfyk upper respiratory disease (11 sources)Bronchospasm; Translations: [Acute bronchospasm]Onset: 01-17-2024 96-77-3910VgguroehGwjdovwxo; thrombophlebitis and thromboembolism (11 sources)Deep venous thrombosis of lower extremity; Translations: [Acute embolism and thrombosis of unspecified deep veins of right lower extremity] Onset: 872077-62-3178NanmcwogZndcvjvqn (except that caused by tuberculosis or sexually transmitted disease) (9 sources)Pneumonia; Translations: [Pneumonia, unspecified organism]Onset: 612007-88-2396PejdwtldEppztpcls heart disease (20 sources)H/O: pulmonary embolus; Translations: [Personal history of pulmonary embolism]Onset: 09-07-2019 Resolved: 817103-58-0077UorsjpgzMvisudyp codes; unclassified (5 sources)Obstructive sleep apnea syndrome; Translations: [Obstructive sleep apnea (adult) (pediatric)]Onset: 06-27-2024 Resolved: 151618-94-3553HufttenSeklzpuk codes; unclassified (17 sources)History of closure of colostomy; Translations: [Other specified postprocedural states]Onset: 071030-31-5653GjniemhuVwuokgqo codes; unclassified (11 sources)History of partial resection of colon; Translations: [Acquired absence of other specified parts of digestive tract]Onset: EpisodicResidual codes; unclassified (1 source)Other amnesia; Translations: [Other amnesia]Onset: 90-48-7576Njarpbzl Residual codes; unclassified (11 sources)Tobacco user; Translations: [Tobacco use]Onset: 06-27-2024 Resolved: 705089-96-4631UnphpjogBibnovkx codes; unclassified (5 sources)Insomnia; Translations: [Insomnia, unspecified]Onset: 06-27-2024 Resolved: 661334-97-8773FaklscroKerqwlhm codes; unclassified (5 sources)Memory impairment; Translations: [Other amnesia]Onset: 06-27-2024 Resolved: 987316-17-1696HgrajdfiZcnbwkzljsw failure; insufficiency; arrest (adult) (20 sources)Hypoxemic respiratory failure; Translations: [Respiratory failure, unspecified with hypoxia]Onset: 573732-96-9838QypyekblEsddgqoul and history of mental health and substance abuse codes (20 sources)Personal history of nicotine dependence; Translations: [Ex-smoker] Onset: 062911-27-1569ZwhuzlzuRcnpish on above:QUIT 2017 07 PPD;quit 05/26/2021;Skin and subcutaneous tissue infections (20 sources)Abscess of abdominal wall; Translations: [Cutaneous abscess of abdominal wall]Onset: 739256-57-6700RtpnzsrdWbuaetn (11 sources)Syncope; Translations: [Syncope and collapse]Onset: 01-17-2024 Resolved: 527411-33-6400UjxdgdzuPmnymrdvrzud (5 sources)Smoker; Translations: [Smoking]Onset: 01-17-2024 Resolved: 049385-19-2162 Results Test NameValueInterpretationReference RangeFacilityHeart and Vascular Office/Clinic Noteon 99-42-6294Iermc and Vascular Office/Clinic NoteHeart and Vascular Office/Clinic [...] Mild diffuse disease L (more content not included)...[facility] HospitalComment [facility]:Result Comment: Electronically Signed By: Elizabeth LACEY, Juan Francisco Nam\barby\Date and Time Signed: 05/24/25 14:47 EDTHeart and Vascular Office/Clinic Noteon 73-21-6562Kdhye and Vascular Office/Clinic NoteHeart and Vascular Office/Clinic [...] previously placed stent in (more content not included)...[facility] HospitalComment on above:Result Comment: Electronically Signed By: [...] note The patient was heparinized. A 6 Israeli JR4 guiding catheter was used. Right coronary artery was engaged. Intracoronary nitroglycerin was administered. Pressure wire was advanced to the proximal RCA,and after performance of advanced normalization, advanced to the distal RCA with no technical difficulties. iFR was assessed at 0.95, consistent with fu (more content not included)... [facility] HospitalComment on above:Result Comment: Electronically Signed By: Elizabeth LACEY, Juan Francisco Nam\.br\Date and Time Signed: 12/04/24 10:03 EDT Heart and Vascular Office/Clinic Noteon 14-65-8972Ypgto and Vascular Office/Clinic NoteHeart and Vascular Office/Clinic [...] (06/20/2024 15:19 EST Echo Transthoracic w/ Contrast) [place] [address] Adult Echocardiogram Report Name: ELICEO KENNY Study Date: 06/20/2024 02:24 PM BP: 139/88 mmHg [place] [facility] [place] [facility] [place] 87 : 1965 Gender: [...] catheterization procedure report DATE OF PROCEDURE: 08/01/2024 BUSINESS ADMINISTRATOR Blanco Lazcano MD [facility] INDICATION: New onset cardiomyopathy, history of coronary [...] patient was brought to the Adult Cardiac Typist and placed on the table. The planned puncture sites/areas were prepped and draped in usual sterile fashion and a safety time-out was performed. Moderate Sedation was given by the Cardiac Typist RN. RIGHT RADIAL ARTERY ACCESS: The puncture site was infiltrated with 1% lidocaine. The modified Seldinger technique was performed to access the right radial artery using (more content not included)...[facility] Comment on above:Result Comment: Electronically Signed By: Jaleesa SOLIS, Blanco [place]\.br\Date and Time Signed: 08/24/24 14:00 ESTCB w/Indiceson 08-01-2024 Erythrocyte distribution width (RBC) [Ratio]13.7 %Czrksz88.9-14.2FPremier Health Atrium Medical CenterComment on above:Order Comment: if not completed in last 30 days Performed By: #### [id number] #### [facility] [address], [place] [address]Btmfpivrkb (Bld) [Volume fraction]44.2 %Evojdm16.7-49.0[facility] CenterComment on above:Order Comment: if not completed in last 30 daysPerformed By: #### [id number] #### [facility] [address], [place] [address]Yczttjcjoy (Bld) [Mass/Vol]15.7 g/jVYlewvd08.5-17.5FPremier Health Atrium Medical CenterComment on above:Order Comment: if not completed in last 30 days Performed By: #### [id number] #### [facility] [address] [place] [address] [id number] (RBC) [Entitic mass]34.7 gkRhrs70.0-34.0[facility] CenterComment on above:Order Comment: if not completed in last 30 days Performed By: #### [id number] #### [facility] [address] [place] [address] 95941DTOV (RBC) [Mass/Vol]35.5 g/uSZjasct93.4-36.0[facility] CenterComment on above:Order Comment: if not completed in last 30 days Performed By: #### [id number] #### [facility] [address] [place] [address] [id number] (RBC) [Entitic vol]97.6 rYEvggen31.0-100.0[facility] CenterComment on above:Order Comment: if not completed in last 30 days Performed By: #### [id number] #### [facility] [address] [place] [address]35[address]Krpkkemo466.0 E9/JMnjmrm304.0-500.0[facility] Comment on above:Order Comment: if not completed in last 30 daysPerformed By: #### [id number] #### [facility] [address] [place] [address] 01846Leonfhuy mean volume (Bld) [Entitic vol]7.4 fLNormal6.4-10.8 [facility] CenterComment on above:Order Comment: if not completed in last 30 daysPerformed By: #### [id number] #### [facility] [address] [place] [id number] (Bld) [#/Vol]4.5 E12/LNormal4.3-5.9[facility] CenterComment on above:Order Comment: if not completed in last 30 daysPerformed By: #### [id number] #### [facility] [address], [place] [address]GEX size Nom (Bld)NORMALInvalid Interpretation CodeMain Campus Medical CenterComment on above:Order Comment: if not completed in last 30 days Performed By: #### [id number] #### [facility] [address], [place] [address]WVF corrected for nucl RBC Auto (Bld) [#/Vol]8.0 E9/LNormal 4.0-11.0[facility] CenterComment on above:Order Comment: if not completed in last 30 daysPerformed By: #### [id number] #### [facility] [address] [place] [address]Zbxqnfuav Instructionson 60-35-2421Orbvblvpy Instructions Discharge Instructions ZOYAELICEO :1965 Visit Date:08/01/2024 [...] Lazcano When: 08/24/2024 02:45 PM EST Where: [address] [place] [phone] Business (1) Medications What How Much When [...] MRI compatible. Implanted PC (more content not included)...NormalMain Campus Medical CenterComment on above:Result Comment: Electronically Signed By: Mustapha BARAJAS, Sangeeta Nam\.jesus\Date and Time Signed: 08/01/24 11:20 ESTHEMATOLOGYOrdered By: SYSTEM SYSTEM on 08-01-2024 Erythrocyte distribution width (RBC) [Ratio]13.7 %Lmgwwf79.9 - 14.2 %Remisol HemeHematocrit (Bld) [Volume fraction]44.2 %Vznvvc38.7 - 49.0 %Remisol Heme Hemoglobin (Bld) [Mass/Vol]15.7 g/wTVfffsg58.5 - 17.5 gm/dLRemisol HemeMCH (RBC) [Entitic mass]34.7 sdNuoo06.0 - 34.0 pgRemisol HemeMCHC (RBC) [Mass/Vol]35.5 g/uNWedfwx89.4 - 36.0 gm/dLRemisol HemeMCV (RBC) [Entitic vol]97.6 vPHtvltr33.0 - 100.0 fLRemisol WzquYdccmlcy922.0 E9/YDkauqr774.0 - 500.0 E9/LRemisol Heme Platelet mean volume (Bld) [Entitic vol]7.4 fLNormal6.4 - 10.8 fLRemisol HemeRBC (Bld) [#/Vol]4.5 E12/LNormal4.3 - 5.9 E12/LRemisol HemeRBC size Nom (Bld)NORMAL *NA* (08/01/24 7:30 AM)Invalid Interpretation CodeRemisol HemeWBC corrected for nucl RBC Auto (Bld) [#/Vol]8.0 E9/LNormal4.0 - 11.0 E9/LRemisol HemeInpatient Clinical Summaryon 83-30-9381Kosinyxko Clinical SummaryInpatient Clinical Summary [address] [address] Clinical Summary Person Information: Name: ELICEO KENNY Age: 58 Years : 1965 Sex: Male PCP: AMBER CUELLAR DO Marital Status: Single Race: White Ethnicity: Non- or Language: Faroese Visit Id: Visit Reason: R93.1 I25.10 I42.9 Speciality: Acuity: Enc Type: Ambulatory/Same Day Surgery Med Service: Surgery Arrival: 08/01/2024 06:51:42 Discharge: Dispo Type: Address: Miguel [facility] [facility] [id number] Provider Notes: Diagnosis: Problems No Problems Documented [...] Follow up: With: Address: When: Blanco Lazcano [address] [place], [place] [id number] [phone] Business (1) 08/24/2024 2:45 PM Type Location Start [facility] Cardiology Follow Up (FT) FT.Cardiology Clinic 08/24/2024 2:45 PM 08/24/2024 3:00 PM Confirmed Patient Education Information: CV - Cardiovascular PCI Discharge Instructions (CUSTOM)[facility] HospitalIn[facility] Patient Summaryon 54-47-0410Fyulodahz Patient Summary Inpatient Patient Summary [address] [address] Patient Discharge Instructions PERSON INFORMATION Name: ELICEO KENNY Date of : 1965 Current Date: 08/01/2024 11:19:30 PHYSICIANS Admitting Physician: Blanco Lazcano MD Primary Care Physician: AMBER CUELLAR DO PCP Phone Number: [phone] Comment: Discharge Diagnosis: Condition at Discharge: Improved [...] Follow up: With: Address: When: Bl[place] [address] [phone] Business (1) 08/24/2024 2:45 PM In the event that this physician does not participate in your insurance network, please consult with your insurance company to find a nearby participating provider. Type Location Start [facility] Cardiology Follow Up (FT) FT.Cardiology Clinic 08/24/2024 [...] Dose: Comment: MEDICATION L (more content not included)...NormalMain Campus Medical CenterBMP on 78-78-2514Lpecu gap [Moles/Vol]13 mmol/LNormal6-16[facility] Comment on above:Performed By: #### [id number] #### [facility] [address], [place] [address]Nbpcvfv [Mass/Vol]9.6 mg/dLNormal8.9-11.1FPremier Health Atrium Medical CenterComment on above:Performed By: #### [id number] #### [facility] [address], [place] [address]Tewuowgs [Moles/Vol]103 mmol/MGjimqa169-235TaugbpMain Campus Medical CenterComment on above:Performed By: #### [id number] #### [facility] [address] [place], [place] [address]PX7 [Moles/Vol]24 mmol/GDmoomk43-93QazqlqMain Campus Medical Center Comment on above:Performed By: #### [id number] #### [facility] [address], [place] [address]Wqdcooidvr [Mass/Vol]0.7 mg/dLNormal0.5-1.3FPremier Health Atrium Medical CenterComment on above:Performed By: #### [id number] #### [facility] [address], [place] [address]Cpxuwpp [Mass/Vol]120 mg/lFYjgktd67-184FybbozMain Campus Medical CenterComment on above:Performed By: #### [id number] #### [facility] [address], [place] [address]Qkjtgbsqg [Moles/Vol]4.2 mmol/LNormal3.5-5.3FPremier Health Atrium Medical CenterComment on above:Performed By: #### [id number] #### [facility] [address], [place] [address]Mahadj [Moles/Vol]136 mmol/YBakoft368-730RkgfezMain Campus Medical CenterComment on above:Performed By: #### [id number] #### [facility] [address], [place] [address]Vqdg nitrogen [Mass/Vol]11 mg/dLNormal5-21Main Campus Medical CenterComment on above:Performed By: #### [id number] #### [facility] [address], [place] [address]Rqch nitrogen/Creatinine [Mass ratio]16 No FbjiuQzomje31-39 [facility] Medical CenterComment on above:Performed By: #### [id number] #### [facility] [address], [place] [address]KFMqq 46-95-2641Hqmcmsmiohf peptide B (Bld) [Mass/Vol]12 pg/mL Normal5-80[facility] Medical CenterComment on above:Performed By: #### [id number] #### [facility] [address], [place] [address]VYNIHAZVMNadsmod By: SYSTEM SYSTEM on 14-58-8139Gafog gap [Moles/Vol]13 mmol/LNormal6 - 16 mEq/LRemisol ChemCalcium [Mass/Vol]9.6 mg/dL Normal8.9 - 11.1 mg/dLRemisol ChemChloride [Moles/Vol]103 mmol/RDbyiir921 - 111 mmol/LRemisol ChemCholesterol [Mass/Vol]217 mg/kDZrtf431 - 200 mg/dLRemisol Chem Cholesterol in HDL [Mass/Vol]54 mg/dLInvalid Interpretation CodeRemisol Chem Comment on above:Result Comment: '>= 60 LOW RISK' '<= 40 HIGH RISK'Cholesterol in LDL [Mass/Vol]107 mg/dLNormal<=129mg/dLRemisol ChemCholesterol in VLDL [Mass/Vol]77 mg/dLHigh7 - 40 mg/dLRemisol ChemCO2 [Moles/Vol]24 mmol/VZmtpdi93 - 31 mmol/LRemisol ChemCreatinine [Mass/Vol]0.7 mg/dLNormal0.5 - 1.3 mg/dLRemisol XgwtaCOK777 mL/min/1.73 j7Biqzxb >=59mL/min/1.73 j1Uwahykf ChemGlucose [Mass/Vol]120 mg/gYImhgre07 - 199 mg/dL Remisol ChemPotassium [Moles/Vol]4.2 mmol/LNormal3.5 - 5.3 mmol/LRemisol Chem Sodium [Moles/Vol]136 mmol/UThpwib252 - 145 mmol/LRemisol ChemTriglyceride [Mass/Vol]384 mg/dLHigh<=149mg/dLRemisol ChemUrea nitrogen [Mass/Vol]11 mg/dL Normal5 - 21 mg/dLRemisol ChemUrea nitrogen/Creatinine [Mass ratio]16 mg/mg Oqwefg97 - 20Remisol ChemCHEMISTRYOrdered By: Yudy Aldrich on 07-24-2024 Natriuretic peptide B (Bld) [Mass/Vol]12 pg/mLNormal5 - 80 pg/mLMartin General Hospital Lipid Panelon 15-44-7197Dgcmijzeudu [Mass/Vol]217 mg/qEOnxz169-497AoncqvMain Campus Medical CenterComment on above:Performed By: #### [id number] #### [facility] [address], [place] [address]Edoyhckgdxs in HDL [Mass/Vol]54 mg/dLInvalid Interpretation [facility]. [facility] HospitalComment on above:Result Comment: '>= 60 LOW RISK' '<= 40 HIGH RISK'Performed By: #### [id number] #### [facility] [address], [place] [address]Upktgtcwlxh in LDL [Mass/Vol]107 mg/dLNormal<=129[facility] Campus Medical CenterComment on above:Performed By: #### [id number] #### [facility] [address], [place] [address]Ooorbyucdhd in VLDL [Mass/Vol]77 mg/dLHigh7-40[facility] Medical CenterComment on above:Performed By: #### [id number] #### [facility] [address], [place] [address]Gatuzklimmcl [Mass/Vol]384 mg/dLHigh<=149[facility] Medical CenterComment on above:Performed By: #### [id number] #### [facility] [address], [place] [address]gEKInc 78-02-1281vCCW452 mL/min/1.73 a4Xuozed>=59Main Campus Medical CenterComment on above:Performed By: #### [id number] #### [facility] [address], [place] [address]LVQ 12-LEADon 46-49-8094G[address] [address] Electrocardiograph Report Signed Patient: ELICEO KENNY MR#: [id number] : 1965 Acct:[id number] Age/Sex: 58 / M ADM Date: 06/02/24 Loc: [place] 215-[address]: Shaikh Eddie Avila Ordering Physician: Shazia Arias Date of Service: 06/02/24 Procedure(s): ECG 12 lead Accession Number(s): [id number] cc: [facility] Test Date: 2024-06-02 Pat Name: ELICEO KENNY Department: Room: - 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 Signed By: 06/03/24627 DD/ 18 TD/TT: Finish Remover: AMA Samayoa 12-LEADOrdered By: Alyssa Radiology on 77-87-9786[facility] Work Phone: ECG 12-LEADon 91-26-8705Bruhiztlt Study observation (narrative)[facility] Office/Cl[facility] [...] or concerning lesions Assessment/Plan 1. 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 For now, we will continue DAPT.Fasting lipids [...] range of 35% with grade 2 mitral regurgitation.[facility] HospitalComment on above: Result Comment: Electronically Signed By: Jaleesa SOLIS, Blanco Monten[place]ro\.br\Date and Time Signed: 05/25/24 11:41 EDTXR Chest 2 Viewson 67-43-7747EKHG changes, parenchymal and pleural-based findings consistent with [...] BY: ELECTRONICALLY SIGNED BY: Demar Garcia MD [facility] HealthcareXR Chest 2 ViewsOrdered By: Demar Garcia on 84-69-8934MB[facility] Work Phone: xr Chest 2 Viewson 58-59-6928Swgijnbwl Study observation (narrative)[facility] HealthcareAddendum Noteon 24-96-1536Ytoutffdurexr Authentication Interface Message TextAddended by: JOHN COLLIER on: 01/02/2024 09:47 AM Modules accepted: [facility] SystemAddendum Noteon 12-29-2023 Grid Caster Authentication Interface Message TextAddended by: JOHN COLLIER on: 12/29/2023 12:25 PM Modules accepted: [facility] SystemOffice Visit (Cardiology)on 56-72-1769Jgzfyl-up visitDiagnoses/Problems Assessed Atherosclerosis of coronary artery of chicken ranch heart without angina pectoris (414.01) (I25.10) Essential [...] (Z01.810) Orders Atherosclerosis of coronary artery of chicken ranch heart without angina pectoris Renew: Atorvastatin Calcium 80 MG Oral Tablet; TAKE 1 TABLET BY MOUTH EVERYDAY AT BEDTIME Renew: Carvedilol 6.25 MG Oral Tablet; take 1 tablet by mouth twice a day Renew: Clopidogrel Bisulfate 75 MG Oral Tablet; TAKE 1 TABLET BY MOUTH EVERY DAY Atherosclerosis of coronary artery of chicken ranch heart without angina pectoris, Preoperative cardiovascular examination [...] we can help. You may also call 4-296-ODNBChipSensorsNOW for free resources and assistance.; Status:Complete - [...] stress test. Colostomy reversal with [facility] General Surgery, Fax: [phone] Follow up in 9-12 months Chief Complaint [...] N (more content not included)...NormalUH TouchworksTobacco Screening.on 86-71-3401Oajmx depression screening assessmentNo-[facility] [employer] 250 DO Work Phone: Tobacco use status CPHSb) [facility] 250 DO Work Phone: CBC AUTO DIFFon 89-40-6405HUTA #0.0 103/ulNormal 0.0-0.1The [facility] HospitalComment on above:Performed By: #### CMREP #### [facility] [address] [place] [address] Dr. Wilda PatelBasophils/100 WBC (Bld)0.5 %Normal0.2-2.0[facility] Comment on above:Performed By: #### CMREP #### [facility] [address] [place] [address] Dr. Wilda Carr #0.1 103/ulNormal0.0-0.7The [facility] HospitalComment on above: Performed By: #### CMREP #### [facility] [address] [address] [address] Wilda Cantuosinophils/100 WBC (Bld)0.8 %Critically low0.9-7.0The [facility] HospitalComment on above:Performed By: #### CMREP #### [facility] [address] [place] [address] Dr. Wilda Canturythrocyte distribution width (RBC) [Ratio]12.3 %Kkvgth52.0-15.0 The [facility] HospitalComment on above:Performed By: #### CMREP #### [facility] [address] [address] [address] Wilda PatelHematocrit (Bld) [Volume fraction]41.9 %Critically low42.0-54.0 The [facility] HospitalComment on above:Performed By: #### CMREP #### [facility] [address] [place] [address] Dr. Wilda PatelHemoglobin (Bld) [Mass/Vol]14.6 g/cOCussid34.0-18.0The [facility] HospitalComment on above:Performed By: #### CMREP #### [facility] [address] [place] [address] Dr. Wilda Candelario #0.03 10e3/ulNormal0.00-0.03The [facility] HospitalComment on above:Performed By: #### CMREP #### [facility] [address] [place] [address] Dr. Wilda Candelario %0.5 %Normal0.0-0.5The [facility] HospitalComment on above: Performed By: #### CMREP #### [facility] [address] [place] [address] Dr. Wilda Pabon #1.7 103/ulNormal1.2-3.8The [facility] HospitalComment on above:Performed By: #### CMREP #### [facility] [address] [place] [address] Dr. Wilda Barrettmphocytes/100 WBC (Bld)26.2 %Djvvsb26.5-60.0[facility] CenterComment on above:Performed By: #### CMREP #### [facility] [address] [place] [address] Dr. Wilda SalgueroUAL DIFF REQNONormalThe [facility] HospitalComment on above: Performed By: #### CMREP #### [facility] [address] [place] [address] Dr. Wilda Clark (RBC) [Entitic mass]32.9 fhJmyhkd75.9-34.0The [facility] HospitalComment on above:Performed By: #### CMREP #### [facility] [address] [place] [address] Dr. Wilda Whitaker (RBC) [Mass/Vol]34.8 g/fOBxmdss24.9-35.2The [facility] HospitalComment on above:Performed By: #### CMREP #### [facility] [address] [place] [address] Dr. Wilda Whitaker (RBC) [Entitic vol]94.4 fLCritically high80.0-94.0The [facility] HospitalComment on above:Performed By: #### CMREP #### [facility] [address] [place] [address] Dr. Wilda Georges #0.6 103/ulNormal0.3-0.8The [facility] HospitalComment on above:Performed By: #### CMREP #### [facility] [address] [place] [address] Dr. Wilda Castroocytes/100 WBC (Bld)9.1 %Normal1.7-12.0[facility] Comment on above:Performed By: #### CMREP #### [facility] [address] [place] [address] Dr. Wilda Berry #4.1 103/ulNormal1.4-6.5The [facility] HospitalComment on above:Performed By: #### CMREP #### [facility] [address] [place] [address] Dr. Wilda Coronadoutrophils/100 WBC (Bld)62.9 %Mydqge18.0-75.0The [facility] HospitalComment on above:Performed By: #### CMREP #### [facility] [address] [place] [address] Dr. Wilda Acostalet mean volume (Bld) [Entitic vol]10.0 fLNormal9.5-13.5The [facility] HospitalComment on above:Performed By: #### CMREP #### [facility] [address] [place] [address] Dr. Wilda RomeT182 103/jjWeapnu405-953Lfa [facility] HospitalComment on above: Performed By: #### CMREP #### [facility] [address] [place] [address] Dr. Wilda PatelRBC4.44 106/ulCritically low4.70-6.10The [facility] HospitalComment on above:Performed By: #### CMREP #### [facility] [address] [place] [address] Dr. Wilda PatelWBC6.5 103/ulNormal4.0-11.0The [facility] HospitalComment on above: Performed By: #### CMREP #### [facility] [address] [place] [address] Dr. Wilda PatelMAGNESIUMon 10-61-7804Kvypgeqvf [Mass/Vol]2.4 mg/dLNormal1.8-2.4 The [facility] HospitalComment on above:Performed By: #### CMREP #### [facility] [address] [place] [address] Dr. Wilda PatelPROF CHEM 8 (BAS METB)on 37-95-9944Rtzet gap [Moles/Vol]12.8 mmol/LNormalThe [facility] HospitalComment on above:Performed By: #### CMREP #### [facility] [address] [place] [address] Dr. Wilda PatelCalcium [Mass/Vol]8.3 mg/dLCritically low8.5-10.1The [facility] HospitalComment on above:Performed By: #### CMREP #### [facility] [address] [place] [address] Dr. Wilda PatelChloride [Moles/Vol]97 mmol/LCritically siw55-024Cws [facility] HospitalComment on above:Performed By: #### CMREP #### [facility] [address] [place] [address] Dr. Wilda PatelCO2 [Moles/Vol]24.5 mmol/BEmjgbn48.0-32.0The [facility] Comment on above:Performed By: #### CMREP #### [facility] [address] [address] [address] Wilda PatelCreatinine [Mass/Vol]0.76 mg/dLNormal0.70-1.30The [facility] Hospitalment on above:Performed By: #### CMREP #### [facility] [address] [address] [address] Astudillo ChangEGFR-AF KAZAKH>60Normal>=60The [facility] HospitalComment on above:Performed By: #### CMREP #### [facility] [address] [address] [address] Wilda CantuGFR-NON AF KAZAKH>60Normal>=60The [facility] on above:Performed By: #### CMREP #### [facility] [address] [place] [address] Dr. Wilda PatleGlucose [Mass/Vol]98 mg/zGJgnlvs92-743Gly [facility] Comment on above:Performed By: #### CMREP #### [facility] [address] [address] [address] Wilda PatelPotassium [Moles/Vol]3.3 mmol/LCritically low3.5-5.1The [facility] on above:Performed By: #### CMREP #### [facility] [address] [address] [address] Wilda PatelSodium [Moles/Vol]131 mmol/LCritically gny020-815Etb [facility] on above:Performed By: #### CMREP #### [facility] [address] [address] [address] Wilda PatelUrea nitrogen [Mass/Vol]10.0 mg/dLNormal7.0-18.0The [facility] Hospitalment on above:Performed By: #### CMREP #### [facility] [address] [address] [address] Wilda PatelUrea nitrogen/Creatinine [Mass ratio]13.2 mg/mgNormalThe [facility] HospitalComment on above:Performed By: #### CMREP #### [facility] [address] [place] [address] Dr. Wilda HERBERT 3-6on 18-26-3621HO [Catalytic activity/Vol]108 U/L Wlxuuq35-701ZddMain Campus Medical CenterComment on above:Performed By: #### ERUR #### [facility] [address] [place] [address] Dr. Wilda Louise.MB [Mass/Vol]2.69 ng/mLNormal<=3.60[facility] Comment on above:Performed By: #### ERUR #### [facility] [address] [place] [address] Dr. Wilda Mak29.0 pg/mLNormal4.0-76.1The [facility] HospitalCommymichigan medical center gladwin on above:Result Comment: CUT-OFF POINTS HAVE BEEN ESTABLISHED BASED ON THE FOURTH UNIVERSAL DEFINITIONS OF MYOCARDIAL INFARCTION. THE UPPER REFERENCE LIMIT (URL) OF TROPONIN, DEFINED THE 99TH PERCENTILE OF cTnI DISTRIBUTION IN A REFERENCE POPULATION, HAS BEEN CONFIRMED THE DECISION THRESHOLD FOR [place] DIAGNOSIS.Performed By: #### ERUR #### [facility] [address] [place] [address] Dr. Wilda Louise [Catalytic activity/Vol]114 U/YSpfngu17-308Ffo [facility] HospitalComment on above:Performed By: #### CMREP #### [facility] [address] [place] [address] Dr. Wilda Louise.MB [Mass/Vol]2.60 ng/mLNormal<=3.60The [facility] Comment on above:Performed By: #### CMREP #### [facility] [address] [place] [address] Dr. Wilda Mak26.7 pg/mLNormal4.0-76.1The [facility] on above:Result Comment: CUT-OFF POINTS HAVE BEEN ESTABLISHED BASED ON THE FOURTH UNIVERSAL DEFINITIONS OF MYOCARDIAL INFARCTION. THE UPPER REFERENCE LIMIT (URL) OF TROPONIN, DEFINED THE 99TH PERCENTILE OF cTnI DISTRIBUTION IN A REFERENCE POPULATION, HAS BEEN CONFIRMED THE DECISION THRESHOLD FOR [place] DIAGNOSIS.Performed By: #### CMREP #### [facility] [address] [place] [address] Dr. Wilda Baxter AUTO DIFFon 17-97-7507UACS #0.0 103/ulNormal0.0-0.1The [facility] HospitalComment on above:Performed By: #### ERUR #### [facility] [address] [place] [address] Dr. Wilda PatelBasophils/100 WBC (Bld)0.5 %Normal0.2-2.0The [facility] Comment on above:Performed By: #### ERUR #### [facility] [address] [place] [address] Dr. Wilda Carr #0.0 103/ulNormal0.0-0.7The [facility] HospitalComment on above: Performed By: #### ERUR #### [facility] [address] [place] [address] Dr. Wilda Cantuosinophils/100 WBC (Bld)0.1 %Critically low0.9-7.0The [facility] HospitalComment on above:Performed By: #### ERUR #### [facility] [address] [place] [address] Dr. Wilda Canturythrocyte distribution width (RBC) [Ratio]12.4 %Owzrfy42.0-15.0 [facility] CenterComment on above:Performed By: #### ERUR #### [facility] [address] [place] [address] Dr. Wilda PatelHematocrit (Bld) [Volume fraction]42.3 %Mtlrik53.0-54.0The [facility] HospitalComment on above:Performed By: #### ERUR #### [facility] [address] [place] [address] Dr. Wilda PatelHemoglobin (Bld) [Mass/Vol]15.0 g/nCVlqmsd84.0-18.0[facility] Medical CenterComment on above:Performed By: #### ERUR #### [facility] [address] [place] [address] Dr. Wilda Candelario #0.01 10e3/ulNormal0.00-0.03The [facility] HospitalComment on above:Performed By: #### ERUR #### [facility] [address] [place] [address] Dr. Wilda Candelario %0.1 %Normal0.0-0.5The [facility] HospitalComment on above: Performed By: #### ERUR #### [facility] [address] [place] [address] Dr. Wilda Pabon #1.7 103/ulNormal1.2-3.8The [facility] HospitalComment on above:Performed By: #### ERUR #### [facility] [address] [place] [address] Dr. Wilda Ramirezhocytes/100 WBC (Bld)22.2 %Ybrpiy14.5-60.0The [facility] HospitalComment on above:Performed By: #### ERUR #### [facility] [address] [place] [address] Dr. Wilda SalgueroUAL DIFF REQNONormalThe [facility] HospitalComment on above: Performed By: #### ERUR #### [facility] [address] [place] [address] Dr. Wilda Clark (RBC) [Entitic mass]33.1 kxLbsffh12.9-34.0The [facility] HospitalComment on above:Performed By: #### ERUR #### [facility] [address] [place] [address] Dr. Wilda Whitaker (RBC) [Mass/Vol]35.5 g/dLCritically high29.9-35.2The [facility] HospitalComment on above:Performed By: #### ERUR #### [facility] [address] [place] [address] Dr. Wilda Cordon (RBC) [Entitic vol]93.4 wLBrxunx78.0-94.0The Parkwood HospitalComment on above:Performed By: #### ERUR #### [facility] [address] [place] [address] Dr. Wilda Georges #0.7 103/ulNormal0.3-0.8The Parkwood HospitalComment on above:Performed By: #### ERUR #### [facility] [address] [place] [address] Dr. Wilda Castroocytes/100 WBC (Bld)9.7 %Normal1.7-12.0[facility] Comment on above:Performed By: #### ERUR #### [facility] [address] [place] [address] Dr. Wilda Berry #5.2 103/ulNormal1.4-6.5The Parkwood HospitalComment on above:Performed By: #### ERUR #### [facility] [address] [place] [address] Dr. Wilda Coronadoutrophils/100 WBC (Bld)67.4 %Ntypza82.0-75.0The Parkwood HospitalComment on above:Performed By: #### ERUR #### [facility] [address] [place] [address] Dr. Wilda Acostalet mean volume (Bld) [Entitic vol]9.4 fLCritically low 9.5-13.5The Parkwood HospitalComment on above:Performed By: #### ERUR #### [facility] [address] [place] [address] Dr. Wilda PatelPLT171 103/ruKivzbi850-971Yfm Park[facility] HospitalComment on above: Performed By: #### ERUR #### [facility] [address] [place] [address] Dr. Wilda VenturaC4.53 106/ulCritically low4.70-6.10The Parkwood HospitalComment on above:Performed By: #### ERUR #### [facility] [address] [place] [address] Dr. Wilda PatelWBC7.7 103/ulNormal4.0-11.0The Parkwood HospitalComment on above: Performed By: #### ERUR #### [facility] [address] [place], [place] [id number] Dr. Wilda PatelCT STROKE HEAD WOon 70-19-4632UL STROKE HEAD WOEXAMINATION: CT STROKE HEAD WO [...] Electronically authenticated by: SUREKHA QUESADA Date: 2022-07-21 22:22[facility] CONon 56-09-4375PAY NECK WO W CONEXAMINATION: CTA HEAD WO [...] Electronically authenticated by: TRACI THACKER Date: 2022-07-22 01:01[facility], IncCovid-19 PCR (CVDTBH)on 33-76-4230VUDM-CoV-2 (COVID-19) RNA SHREYA+probe Ql (Unsp spec)Not detectedNormalNOT DETECTEDThe [facility] Comment on above:Result Comment: When diagnostic [...] for this test is supported by the [place] of Health and Human Service's declaration that [...] longer be used).Performed By: #### LACT #### [facility] [address] [place] [address] Dr. Wilda WeirCARDIO M/2D COMPLETEon [id number] M/2D COMPLETE Patient: ELICEO KENNY Exam Date: 07/22/2022 : 1965 Gender:M Ordering : SHAIKH Mirtha JEAN . Admission #: [id number] Family : DR AARON OCAMPO M.D. Order #: [id number] CLICK HERE TO VIEW EXAM ECHOCARDIOGRAM REPORT [...] by: Willy Jin M.D. on 07/28/2022 at 10:00[facility], IncLIPID PROFILEon 85-77-1974SAYQ-HDL RATIO NORMSSt. Vincent HospitalComment on above:Result Comment: 3.3 - 4.4 LOW RISK 4.4 - 7.1 AVERAGE RISK 7.1 - 11.0 MODERATE RISK >11.0 HIGH RISKPerformed By: #### CMREP #### [facility] [address] [place] [address] Dr. Wilda PatelCholesterol [Mass/Vol]180 mg/dLNormal<=200[facility] Comment on above:Performed By: #### CMREP #### [facility] [address] [place] [address] Dr. Yilan ChangCholesterol in HDL [Mass/Vol]59 mg/uAQrncrc64-36Leb Parkwood HospitalComment on above:Performed By: #### CMREP #### [facility] [address] [place] [address] Dr. Wilda PatelCholesterol in LDL [Mass/Vol]74.4 mg/dLSelect [facility], IncComment on above:Performed By: #### CMREP #### [facility] [address] [place] [address] Dr. Wilda Simmons.total/Cholesterol in HDL [Mass ratio]3.1 {ratio} NormalMain Campus Medical CenterCommymichigan medical center gladwin on above:Performed By: #### CMREP #### [facility] [address] [place] [address] Dr. Wilda Norwood NORMAL> or = 60 mg/dl - LOW CARDIOVASCULAR RISK <40 mg/dl - HIGH CARDIOVASCULAR RISKSelect [facility] Specialty [facility], IncCommymichigan medical center gladwin on above:Performed By: #### CMREP #### [facility] [address] [place] [address] Dr. Wilda PatelLDL CALC NORMALSEE BELOWSelect Medical Specialty Hospital [facility], IncCommymichigan medical center gladwin on above:Result Comment: <100 mg/dl OPTIMAL 100 - 129 mg/dl NEAR OR ABOVE OPTIMAL 130 - 159 mg/dl BORDERLINE HIGH 160 - 189 mg/dl HIGH >190 mg/dl VERY HIGH Performed By: #### CMREP #### [facility] [address] [place] [address] Dr. Wilda PatelTriglyceride [Mass/Vol]233 mg/dLCritically high<=150The [facility] HospitalCommymichigan medical center gladwin on above:Performed By: #### CMREP #### [facility] [address] [place] [address] Dr. Wilda PatelVLDL CALC46.6 mg/dLSelect Medical Specialty [facility], IncComment on above: Performed By: #### CMREP #### [facility] [address] [place] [address] Dr. Wilda PatelMAGNESIUMon 07-09-4319Uinpblptr [Mass/Vol]2.3 mg/dLNormal1.8-2.4 The Parkwood HospitalComment on above:Performed By: #### BMP, MG #### [facility] [address] [address] [address] Wilda Lobo BRAIN WO CONon 90-38-0919EAZ BRAIN WO CONEXAMINATION: MRI BRAIN WO CON, [...] Electronically authenticated by: CAROLYN REDDY Date: 2022-07-22 15:28[facility], IncPROF CHEM 8 (BAS METB)on 59-01-7800Zdvgr gap [Moles/Vol]16.0 mmol/LNormalThe Parkwood HospitalComment on above:Performed By: #### BMP, MG #### [facility] [address] [place] [address] Dr. Wilda PatelCalcium [Mass/Vol]8.3 mg/dLCritically low8.5-10.1The Parkwood HospitalComment on above:Performed By: #### BMP, MG #### [facility] [address] [place] [address] Dr. Wilda PatelChloride [Moles/Vol]100 mmol/MPrzdrk34-248BjqMain Campus Medical Center Comment on above:Performed By: #### BMP, MG #### [facility] [address] [place] [address] Dr. Wilda PatelCO2 [Moles/Vol]21.3 mmol/NXylkve61.0-32.0[facility] Comment on above:Performed By: #### BMP, MG #### [facility] [address] [address] [address] Wilda PatelCreatinine [Mass/Vol]0.70 mg/dLNormal0.70-1.30The [facility] Hospitalment on above:Performed By: #### BMP, MG #### [facility] [address] [address] [address] Astudillo ChangEGFR-AF KAZAKH>60Normal>=60The [facility] on above:Performed By: #### BMP, MG #### [facility] [address] [address] [address] Wilda CantuGFR-NON AF KAZAKH>60Normal>=60The [facility] on above:Performed By: #### BMP, MG #### [facility] [address] [address] [address] Wilda PatelGlucose [Mass/Vol]92 mg/oGDgjqgt71-436Ngc [facility] Comment on above:Performed By: #### BMP, MG #### [facility] [address] [address] [address] Wilda PatelPotassium [Moles/Vol]3.3 mmol/LCritically low3.5-5.1The [facility] on above:Performed By: #### BMP, MG #### [facility] [address] [address] [address] Wilda PatelSodium [Moles/Vol]134 mmol/LCritically xpr059-205Iwa [facility] on above:Performed By: #### BMP, MG #### [facility] [address] [address] [address] Wilda PatelUrea nitrogen [Mass/Vol]12.0 mg/dLNormal7.0-18.0The [facility] on above:Performed By: #### BMP, MG #### [facility] [address] [address] [address] Wilda PatelUrea nitrogen/Creatinine [Mass ratio]17.1 mg/mgNormalThe Parkwood HospitalComment on above:Performed By: #### BMP, MG #### [facility] [address] [place] [address] Dr. Wilda Wilson 36-10-5692EJQ73.049 uIU/mLCritically high0.358-3.740The Parkwood HospitalComment on above:Performed By: #### LIPID, TSH #### [facility] [address] [place] [address] Dr. Wilda PatelXR CHEST 1 Von 32-52-8101HM CHEST 1 VEXAMINATION: XR CHEST 1 V HISTORY: Chest pain COMPARISON: Portable chest 06/14/2021 TECHNIQUE: Portable chest FINDINGS: The lung parenchyma is free of consolidation or infiltrate. No pneumothorax or pleural effusion. The cardiac, mediastinal and hilar contours are normal. The visualized osseous structures exhibit no gross abnormality. IMPRESSION: No acute cardiopulmonary abnormality. Electronically authenticated by: CAROLYN TRACY Date: 2022-07-21 22:18NoProMedica Fostoria Community HospitalXR FOREIGN BODY EYEon [id number] FOREIGN BODY EYEEXAMINATION: XR FOREIGN BODY EYE HISTORY: Foreign body in eye COMPARISON: No relevant comparison available. FINDINGS: ORBITS: Negative for a metallic foreign body. OTHER: Negative. IMPRESSION: No metallic foreign body in the orbits Electronically authenticated by: CAROLYN REDDY Date: 2022-07-22 12:09[facility], IncCARDIAC KEON ADMITon 40-79-5310BO [Catalytic activity/Vol]123 U/OTbzfgl33-263Lzh Parkwood HospitalComment on above:Performed By: #### CMREP #### [facility] [address] [place] [address] Dr. Wilda Louise.MB [Mass/Vol]3.11 ng/mLNormal<=3.60[facility] Comment on above:Performed By: #### CMREP #### [facility] [address] [place] [address] Dr. Wilda PatelHSTROP23.3 pg/mLNormal4.0-76.1The Parkwood HospitalComment on above:Result Comment: CUT-OFF POINTS HAVE BEEN ESTABLISHED BASED ON THE FOURTH UNIVERSAL DEFINITIONS OF MYOCARDIAL INFARCTION. THE UPPER REFERENCE LIMIT (URL) OF TROPONIN, DEFINED THE 99TH PERCENTILE OF cTnI DISTRIBUTION IN A REFERENCE POPULATION, HAS BEEN CONFIRMED THE DECISION THRESHOLD FOR [place] DIAGNOSIS.Performed By: #### CMREP #### [facility] [address] [place] [address] Dr. Wilda AllenO136 ng/mLCritically xsxr87-36Kpt [facility] HospitalComment on above:Performed By: #### CMREP #### [facility] [address] [place] [address] Dr. Wilda VidalC AUTO DIFFon 58-54-7502SKHV #0.0 103/ulNormal0.0-0.1The [facility]wood HospitalComment on above:Performed By: #### ERUR #### [facility] [address] [place] [address] Dr. Wilda PatelBasophils/100 WBC (Bld)0.3 %Normal0.2-2.0[facility] Comment on above:Performed By: #### ERUR #### [facility] [address] [place] [address] Dr. Wilda Carr #0.0 103/ulNormal0.0-0.7The [facility] HospitalComment on above: Performed By: #### ERUR #### [facility] [address] [place] [address] Dr. Wilda Cantuosinophils/100 WBC (Bld)0.1 %Critically low0.9-7.0The [facility] HospitalComment on above:Performed By: #### ERUR #### [facility] [address] [place] [address] Dr. Wilda Canturythrocyte distribution width (RBC) [Ratio]12.3 %Gowwwd54.0-15.0 The [facility]wood HospitalComment on above:Performed By: #### ERUR #### [facility] [address] [place] [address] Dr. Wilda PatelHematocrit (Bld) [Volume fraction]47.4 %Zdpwvw02.0-54.0The [facility] HospitalComment on above:Performed By: #### ERUR #### [facility] [address] [address] [address] Wilda PatelHemoglobin (Bld) [Mass/Vol]16.8 g/pRHihtzg36.0-18.0The [facility] HospitalComment on above:Performed By: #### ERUR #### [facility] [address] [place] [address] Dr. Wilda Candelario #0.04 10e3/ulCritically high0.00-0.03[facility] Comment on above:Performed By: #### ERUR #### [facility] [address] [place] [address] Dr. Wilda Candelario %0.4 %Normal0.0-0.5The [facility] HospitalComment on above: Performed By: #### ERUR #### [facility] [address] [place] [address] Dr. Wilda Pabon #1.6 103/ulNormal1.2-3.8The [facility] HospitalComment on above:Performed By: #### ERUR #### [facility] [address] [place] [address] Dr. Wilda Ramirezhocytes/100 WBC (Bld)15.7 %Critically low20.5-60.0The [facility] HospitalComment on above:Performed By: #### ERUR #### [facility] [address] [place] [address] Dr. Wilda SalgueroUAL DIFF REQNONormalThe [facility]wood HospitalComment on above: Performed By: #### ERUR #### [facility] [address] [place] [address] Dr. Wilda Whitaker (RBC) [Entitic mass]32.9 znPllnzq31.9-34.0The [facility] HospitalComment on above:Performed By: #### ERUR #### [facility] [address] [place] [address] Dr. Wilda Whitaker (RBC) [Mass/Vol]35.4 g/dLCritically high29.9-35.2The [facility] HospitalComment on above:Performed By: #### ERUR #### [facility] [address] [place] [address] Dr. Wilda WhitakerV (RBC) [Entitic vol]92.9 oKXbcahc73.0-94.0The [facility] HospitalComment on above:Performed By: #### ERUR #### [facility] [address] [place] [address] Dr. Wilda Georges #0.9 103/ulCritically high0.3-0.8[facility] Comment on above:Performed By: #### ERUR #### [facility] [address] [place] [address] Dr. Wilda Castroocytes/100 WBC (Bld)9.3 %Normal1.7-12.0[facility] Comment on above:Performed By: #### ERUR #### [facility] [address] [place] [address] Dr. Wilda Berry #7.4 103/ulCritically high1.4-6.5ThMount St. [facility] Comment on above:Performed By: #### ERUR #### [facility] [address] [place] [address] Dr. iWlda Coronadoutrophils/100 WBC (Bld)74.2 %Gxqjbo70.0-75.0The [facility] HospitalComment on above:Performed By: #### ERUR #### [facility] [address] [place] [address] Dr. Wilda Acostalet mean volume (Bld) [Entitic vol]9.6 fLNormal9.5-13.5ThMount St. Mary HospitalComment on above:Performed By: #### ERUR #### [facility] [address] [place] [address] Dr. Wilda PatelPLT216 103/chSbzfdl403-978Tem Park[facility] HospitalComment on above: Performed By: #### ERUR #### [facility] [address] [place] [address] Dr. Wilda PatelRBC5.10 106/ulNormal4.70-6.10The [facility] HospitalComment on above:Performed By: #### ERUR #### [facility] [address] [address] [address] Wilda PatelWBC9.9 103/ulNormal4.0-11.0The [facility] HospitalComment on above: Performed By: #### ERUR #### [facility] [address] [place] [address] Dr. Wilda PatelPOINT OF CARE GLUCOSEon 45-96-2299Spadmrm [Mass/Vol]113 mg/dL Critically csfl71-687Ete [facility] HospitalComment on above:Performed By: #### ERUR #### [facility] [address] [place] [address] Dr. Wilda Álvarez 14(COMP METB)on 85-28-0995Dksjtuv [Mass/Vol]3.9 g/dLNormal 3.4-5.0The [facility] HospitalComment on above:Performed By: #### CMREP #### [facility] [address] [place] [address] Dr. Wilda PatelAlbumin/Globulin [Mass ratio]1.0 {ratio}NormalThe [facility]wood HospitalComment on above:Performed By: #### CMREP #### [facility] [address] [place] [address] Dr. Wilda Prescott [Catalytic activity/Vol]137 U/LCritically mmva18-973Woh [facility] HospitalComment on above:Performed By: #### CMREP #### [facility] [address] [place] [address] Dr. Wilda Ramirez [Catalytic activity/Vol]16 U/SMpogpj23-92Fcn [facility] HospitalComment on above:Performed By: #### CMREP #### [facility] [address] [place] [address] Dr. Wilda Nelson gap [Moles/Vol]16.7 mmol/LNormalThe [facility] Comment on above:Performed By: #### CMREP #### [facility] [address] [place] [address] Dr. Yilan ChangAST [Catalytic activity/Vol]18 U/KAlsvsm99-35Xrn [facility] HospitalComment on above:Performed By: #### CMREP #### [facility] [address] [place] [address] Dr. Wilda PatelBilirubin [Mass/Vol]2.1 mg/dLCritically high0.2-1.0The [facility] HospitalComment on above:Performed By: #### CMREP #### [facility] [address] [place] [address] Dr. Wilda PatelCalcium [Mass/Vol]9.2 mg/dLNormal8.5-10.1[facility] Comment on above:Performed By: #### CMREP #### [facility] [address] [place] [address] Dr. Wilda PatelChloride [Moles/Vol]96 mmol/LCritically mhn96-867Lny [facility] HospitalComment on above:Performed By: #### CMREP #### [facility] [address] [place] [address] Dr. Wilda PatelCO2 [Moles/Vol]23.8 mmol/NHrgear99.0-32.0[facility] Comment on above:Performed By: #### CMREP #### [facility] [address] [place] [address] Dr. Wilda PatelCreatinine [Mass/Vol]0.92 mg/dLNormal0.70-1.30The [facility] HospitalComment on above:Performed By: #### CMREP #### [facility] [address] [place] [address] Dr. Wilda CantuGFR-AF KAZAKH>60Normal>=60The [facility] HospitalComment on above:Performed By: #### CMREP #### [facility] [address] [place] [address] Dr. Wilda CantuGFR-NON AF KAZAKH>60Normal>=60The [facility] HospitalComment on above:Performed By: #### CMREP #### [facility] [address] [place] [address] Dr. Wilda PatelGlobulin (S) [Mass/Vol]4.0 g/dLNormGreen Cross HospitalComment on above:Performed By: #### CMREP #### [facility] [address] [place] [address] Dr. Wilda PatelGlucose [Mass/Vol]112 mg/dLCritically rbld82-659Lcj [facility] HospitalComment on above:Performed By: #### CMREP #### [facility] [address] [place] [address] Dr. Wilda PatelPotassium [Moles/Vol]3.5 mmol/LNormal3.5-5.1The [facility] Comment on above:Performed By: #### CMREP #### [facility] [address] [place] [address] Dr. Wilda PatelProtein [Mass/Vol]7.9 g/dLNormal6.4-8.2The [facility] Comment on above:Performed By: #### CMREP #### [facility] [address] [place] [address] Dr. Wilda PatelSodium [Moles/Vol]133 mmol/LCritically muh937-034Boy [facility] HospitalComment on above:Performed By: #### CMREP #### [facility] [address] [place] [address] Dr. Wilda PatelUrea nitrogen [Mass/Vol]15.0 mg/dLNormal7.0-18.0The [facility] HospitalComment on above:Performed By: #### CMREP #### [facility] [address] [place] [address] Dr. Wilda PatelUrea nitrogen/Creatinine [Mass ratio]16.3 mg/mgNoProMedica Fostoria Community HospitalComment on above:Performed By: #### CMREP #### [facility] [address] [place] [address] Dr. Wlida PatelPROTIMEon 06-37-6077XFV Coag (PPP) [Relative time]1.00 {INR} NormalThe Parkwood HospitalComment on above:Performed By: #### PTT, PT #### [facility] [address] [address] [address] Wilda Barragan GUIDELINESSEE BELOWNoProMedica Fostoria Community HospitalComment on above:Result Comment: DESIRED INR: 2.0 - 3.0 CONDITIONS NOT LISTED BELOW 2.5 - 3.5 FOR PROSTHETIC HEART VALVE REPLACEMENT 2.5 - 3.5 RECURRENT THROMBOSIS Performed By: #### PTT, PT #### [facility] [address] [address] [address] Wilda Rehman Coag (PPP) [Time]10.8 sNormal9.0-11.6[facility] Comment on above:Performed By: #### PTT, PT #### [facility] [address] [place] [address] Dr. Wilda Berrios 08-92-5171sQPD Coag (Bld) [Time]28.8 xObfydv93.3-36.2[facility] CenterComment on above:Performed By: #### PTT, PT #### [facility] [address] [place] [address] Dr. Wilda Mahmood T4 (Free Thyroxine)on 23-13-4471Hdxf T4 [Mass/Vol]0.60 ng/dL Low0.61-1.12[facility] HospitalComment on above:Performed By: #### NQNC58SG, TSH3 wRFLX, T4F #### [facility] [address] [place] [address] USANo Panel InformationOrdered By: Medhat Baltazar on 74-72-396360853410-Nnuidsn Vitamin D Total8.1 ng/kU19-236JtmcihhgtCleveland Clinic Mentor HospitalComment on above:VITAMIN D STATUS 25(OH)VITAMIN D RANGE (ng/mL) Deficient <20 Insufficient 20 to <87Zlxpysjoqo51 to 100Reference: Jay MF,[place], Isaac FRANCES, et al. Evaluation,treatment, and prevention of vitamin D deficiency; an Endocrine Society clinical practice guideline. JCEM. 2010; 96 (7):1911-30.TSH DL <= 0.005 mIU/L QnOrdered By: Medhat Baltazar on 06-08-2022 TSH Qn28.54 m[IU]/L0.45-5.33[facility] Ment[facility] HospitalThyroid Stim Hormone w/Rflxon 13-81-4027Zyuuczv Stim Hormone w/Rflx28.54 u[iU]/mLHigh 0.45-5.33[facility] Ment[facility] HospitalComment on above:Performed By: #### LIPID, TSH3 wRFLX, CBC, SKBV74WL, T4F, CMP, WCKA56ZLP, LDLD, A1C WT eA #### [facility] [address] [place] [address] USAThyroxine (T4) free [Mass/volume] in Serum or Plasma Ordered By: Medhat Baltazar on 15-56-1409Rhdo T4 [Mass/Vol]0.60 ng/dL0.61-1.12 [facility] Ment[facility] HospitalVitamin D 25 Hydroxy Totalon 70-91-0087Oygsphr D 25 Hydroxy Total8.1 ng/wHEnt74-753PrbrojamqCleveland Clinic Mentor HospitalComment on above:Result Comment: VITAMIN D STATUS 25(OH)VITAMIN D RANGE (ng/mL) Deficient <20 Insufficient 20 to <30 Sufficient 30 to 100 Reference: Jay MF,[place], Sanna-Chi FRANCES, et al. Evaluation,treatment, and prevention of vitamin D deficiency; an Endocrine Society clinical practice guideline. JCEM. 2010; 96(7):1911-30. PERFORMED BY: [address] [address] PATHOLOGIST [employer] MARCO ANTONIO FINLEY M.D.Performed By: #### LIPID, TSH3 wRFLX, CBC, DARF91CG, T4F, CMP, XSXJ91SVQ, LDLD, A1C WT eA #### [facility] [address] [place] [address] USANO MUGA SCAN INJECTIONon 06-98-0746MUQ MUGA SCAN INJECTIONMRN: [id number] Patient Name: ELICEO KENNY STUDY: MUGA Performing facility: [facility], [address] [place] [address], [address], [place] [address] [facility] Provider: Darlin Ocampo MD, FACC PCP: Dr. Kelley Supervising provider: Ben Meyers MD INDICATION: Encounter for ICD HISTORY: Gender: M; Age: 56 y/o ; Height: 167.64 cm; Weight: 97.5093457 kg. CAD; High Cholesterol; Previous [place]; HTN; COPD; Ischemic cardiomyopathy Currently smoking. Cardiac catheterization on 2018. PTCA on 2018. COMPARISON: Previous nuclear testing completed [id number] Muga at [facility]. ACCESSION NUMBER(S): [id number]; [id number] ORDERING CLINICIAN: AARON OCAMPO TECHNIQUE: The patient [...] was abnormal. Global resting LVEF was globally tijlgodbeag15 at %. IMPRESSION: Mild resting right ventricular hypokinesis Abnormalresting left ventricular function. Left ventricular ejection fraction is 35%. No change when compared to prior study Electronically signed by: BEN MEYERS MDCanonsburg HospitalNo Panel Informationon 81-13-0200NdggpfKFBethesda Hospital 250 DO Work Phone: A1C with Estimated Average Gluon 19-91-1971Hgcogkr [Mass/Vol]111 mg/dLDunlap Memorial HospitalComment on above: Result Comment: PERFORMED BY: [facility] [address] [id number] PATHOLOGIST [employer] MARCO ANTONIO FINLEY M.D.Performed By: #### LIPID, TSH3 wRFLX, CBC, EVTA57DO, T4F, CMP, PCEG67LQC, LDLD, A1C [facility] #### [facility] [address] [place] [address] CTVZbP4r (Bld) [Mass fraction]5.5 %Normal4.3-5.6FMagruder Memorial HospitalComment on above:Result Comment: Increased risk for diabetes: 5.7 - 6.4 diabetes: >6.4 glycemic control for adults with diabetes: <7.0Performed By: #### LIPID, TSH3 wRFLX, CBC, RHTZ06QE, T4F, CMP, IAXW93YNJ, LDLD, A1C WTH #### [facility] [address] [place] [address] USABasophils Auto (Bld) [#/Vol]Ordered By: Medhat Baltazar on 46-09-6925Jopehpzqx (Bld) [#/Vol]0.0 10*3/uL0.0-0.2FMagruder Memorial HospitalBasophils/100 WBC Auto (Bld)Ordered By: Medhat Baltazar on 03-12-2022 Basophils/100 WBC (Bld)0.6 %.[facility] HospitalBlood hemoglobin measurement (mass/volume)Ordered By: Medhat Baltazar on 45-84-4186Hytyykbrfg (Bld) [Mass/Vol]14.8 g/dL13.0-17.0[facility] Ment[facility] HospitalBlood leukocytes automated count (number/volume)Ordered By: Medhat Baltazar on 07-75-9583FIK (Bld) [#/Vol]5.3 10*3/uL4.5-11.0[facility] Body fluid albumin measurement (mass/volume)Ordered By: Medhat Baltazar on 16-14-3175Ltpuakk (Body fld) [Mass/Vol]3.7 g/dL3.2-5.5FMagruder Memorial HospitalCholesterol [Mass/volume] in Serum or PlasmaOrdered By: Medhat Baltazar on 93-64-4819Sdvoklaosyu [Mass/Vol]157 mg/eF880-061VdyhpwbqbCleveland Clinic Mentor HospitalComment on above:Chol less than 200 mg/dl low risk Chol 201-239 mg/dl borderline risk Chol 240 mg/dl and greater high riskChol less than 200 mg/dl low riskChol 201- 239 mg/dl borderline riskChol 240 mg/dl and greater high riskCholesterol in LDL Calc [Mass/Vol]Ordered By: Medhat Baltazar on 59-87-5288Uajrossyudp in LDL [Mass/Vol]42 mg/dL0-100[facility] HospitalComment on above:LDL ATP III CLASSIFICATION LDL less than 100 mg/dL Optimal LDL 100-129 mg/dL Near or above optimal LDL 130-159 mg/dL Borderline high LDL 160-189 mg/dL High LDL greater than 189 mg/dL Very highLDL ATP III CLASSIFICATIONLDL less than 100 mg/dL OptimalLDL 100-129 mg/dL Near or above ixdkpgeIRA124-067 mg/dL Borderline highLDL 160-189 mg/dL HighLDL greater than 189 mg/dL Very highCholesterol in VLDL Calc [Mass/Vol]Ordered By: Medhat Baltazar on 55-36-8526Pnwizhbnryh in VLDL [Mass/Vol]48 mg/dLCleveland Clinic Mentor HospitalComplete Blood Count Auto Diffon 56-05-0375Udpbczoab (Bld) [#/Vol]0.0 10*3/uLNormal0.0-0.2FMagruder Memorial HospitalComment on above:Result Comment: PERFORMED BY: [place] [address] PATHOLOGIST [employer] MARCO ANTONIO FINLEY M.D.Performed By: #### LIPID, TSH3 wRFLX, CBC, [id number], T4F, CMP, [id number], LDLD, A1C WTH eA #### [facility] [address] [place] [address] USABasophils/100 WBC (Bld)0.6 %Normal.[facility] HospitalComment on above:Performed By: #### LIPID, TSH3 wRFLX, CBC, [id number], T4F, CMP, [id number], LDLD, A1C WTH eA #### [facility] [address] [place] [address] USAEosinophils (Bld) [#/Vol]0.0 10*3/uLNormal0.0-0.45 [facility] HospitalComment on above:Performed By: #### LIPID, TSH3 wRFLX, CBC, [id number], T4F, CMP, [id number], LDLD, A1C WTH eA #### [facility] [address] [place], [place] [id number] USAEosinophils/100 WBC (Bld)0.4 %Normal.[facility] HospitalComment on above:Performed By: #### LIPID, TSH3 wRFLX, CBC, [id number], T4F, CMP, [id number], LDLD, A1C WTH eA #### [place] [address] USAErythrocyte distribution width (RBC) [Ratio]13.7 %Normal 12.0-14.8[facility] HospitalComment on above:Performed By: #### LIPID, TSH3 wRFLX, CBC, [id number], T4F, CMP, [id number], LDLD, A1C WTH eA #### [place] [address] USAHematocrit (Bld) [Volume fraction]43.7 %Gziqab93.8-50.0 [facility] HospitalComment on above:Performed By: #### LIPID, TSH3 wRFLX, CBC, [id number], T4F, CMP, [id number], LDLD, A1C WTH eA #### [place] [address] USAHemoglobin (Bld) [Mass/Vol]14.8 g/yCFunjar17.0-17.0 [facility] HospitalComment on above:Performed By: #### LIPID, TSH3 wRFLX, CBC, [id number], T4F, CMP, [id number], LDLD, A1C WTH eA #### [place] [id number] USALymphocytes (Bld) [#/Vol]1.6 10*3/uLNormal1.00-4.8 [facility] HospitalComment on above:Performed By: #### LIPID, TSH3 wRFLX, CBC, [id number], T4F, CMP, [id number], LDLD, A1C WTH eA #### [place] [address] USALymphocytes/100 WBC (Bld)29.2 %Normal.[facility] HospitalComment on above:Performed By: #### LIPID, TSH3 wRFLX, CBC, [id number], T4F, CMP, [id number], LDLD, A1C WTH eA #### [facility] [address] [place] [id number] [facility] [place] (RBC) [Entitic mass]34.1 iuXlljes03.5-35.2FMagruder Memorial HospitalComment on above:Performed By: #### LIPID, TSH3 wRFLX, CBC, UVRI95CA, T4F, CMP, [id number], LDLD, A1C WTH eA #### [facility] [address] [place] [id number] [facility] [place]BC[place] [Entitic vol]101.1 nUMajp34.5-101[facility] HospitalComment on above:Performed By: #### LIPID, TSH3 wRFLX, CBC, [id number], T4F, CMP, HDLG02JOC, LDLD, A1C WTH eA #### [place] [address] USAMean Corpuscular HGB Conc33.8 g/iFIpdgvs85.5-35.6FMagruder Memorial HospitalComment on above:Performed By: #### LIPID, TSH3 wRFLX, CBC, [id number], T4F, CMP, [id number], LDLD, A1C WTH eA #### [facility] [address] [place] [address] USAMonocytes (Bld) [#/Vol]0.4 10*3/uLNormal0.0-0.8[facility] HospitalComment on above:Performed By: #### LIPID, TSH3 wRFLX, CBC, [id number], T4F, CMP, VNKQ49GST, LDLD, A1C WTH eA #### [facility] [address] [place] [id number] USAMonocytes/100 WBC (Bld)7.0 %Normal.[facility] HospitalComment on above:Performed By: #### LIPID, TSH3 wRFLX, CBC, [id number], T4F, CMP, DPSH93WPH, LDLD, A1C WTH eA #### [facility] [address] [place] [address] USANeutrophils (Bld) [#/Vol]3.3 10*3/uLNormal1.8-7.7FMagruder Memorial HospitalComment on above:Performed By: #### LIPID, TSH3 wRFLX, CBC, [id number], T4F, CMP, [id number], LDLD, A1C WTH eA #### [facility] [address] [place] [address] USANeutrophils/100 WBC (Bld)62.8 %Normal.[facility] HospitalComment on above:Performed By: #### LIPID, TSH3 wRFLX, CBC, [id number], T4F, CMP, [id number], LDLD, A1C WTH eA #### [place] [address] USANucleated RBC/100 WBC (Bld) [Ratio]0.1 %Normal0-0.5 [facility] HospitalComment on above:Performed By: #### LIPID, TSH3 wRFLX, CBC, [id number], T4F, CMP, [id number], LDLD, A1C WTH eA #### [facility] [address] [place] [address] USAPlatelet mean volume (Bld) [Entitic vol]8.7 fLNormal 6.6-10.1FMagruder Memorial HospitalComment on above:Performed By: #### LIPID, TSH3 wRFLX, CBC, [id number], T4F, CMP, UAXH62ABK, LDLD, A1C WTH eA #### [facility] [address] [place] [id number] USAPlatelets (Bld) [#/Vol]218 10*3/aBWmbyci879-436FuyihxlwnCleveland Clinic Mentor HospitalComment on above:Performed By: #### LIPID, TSH3 wRFLX, CBC, [id number], T4F, CMP, XJZK84MLD, LDLD, A1C WTH eA #### [facility] [address] [place] [address] USARBC (Bld) [#/Vol]4.33 10*6/uLNormal3.90-5.60[facility] HospitalComment on above:Performed By: #### LIPID, TSH3 wRFLX, CBC, [id number], T4F, CMP, LMHT75ZVO, LDLD, A1C WTH eA #### [facility] [address] [place] [address] USAWBC (Bld) [#/Vol]5.3 10*3/uLNormal4.5-11.0[facility] HospitalComment on above:Performed By: #### LIPID, TSH3 wRFLX, CBC, [id number], T4F, CMP, [id number], LDLD, A1C WTH eA #### [facility] [address] [place] [address] USAComprehensive Metabolic Panelon 49-45-3227Jerxhak [Mass/Vol]3.7 g/dLNormal3.2-5.5FMagruder Memorial HospitalComment on above:Performed By: #### LIPID, TSH3 wRFLX, CBC, [id number], T4F, CMP, [id number], LDLD, A1C WTH eA #### [facility] [address] [place] [address] USAAlbumin/Globulin [Mass ratio]1.3 {ratio}NormalCleveland Clinic Mentor HospitalComment on above:Performed By: #### LIPID, TSH3 wRFLX, CBC, [id number], T4F, CMP, [id number], LDLD, A1C WTH eA #### [facility] [address] [place] [address] USAALP [Catalytic activity/Vol]87 U/NAyylix11-36WncfhubkrCleveland Clinic Mentor HospitalComment on above:Performed By: #### LIPID, TSH3 wRFLX, CBC, XRXM78ED, T4F, CMP, [id number], LDLD, A1C WTH eA #### [facility] [address] [place] [address] USAALT [Catalytic activity/Vol]39 U/KKwmryd79-37VqrbpubjjCleveland Clinic Mentor HospitalComment on above:Performed By: #### LIPID, TSH3 wRFLX, CBC, [id number], T4F, CMP, [id number], LDLD, A1C WTH eA #### [facility] [address] [place] [address] USAAST [Catalytic activity/Vol]23 U/DTthagf92-73KgcgzpqdaCleveland Clinic Mentor HospitalComment on above:Performed By: #### LIPID, TSH3 wRFLX, CBC, [id number], T4F, CMP, [id number], LDLD, A1C WTH eA #### [facility] [address] [place] [id number] USABilirubin [Mass/Vol]1.5 mg/dLHigh0.3-1.2FMagruder Memorial HospitalComment on above:Result Comment: Samples from patients who have taken Naproxen have shown spurious elevation in Total Bilirubin levels. A metabolite of Naproxen, O-desmethylnaproxen, has been shown to interfere with the Christiana-Pb method for measuring Total Bilirubin.Performed By: #### LIPID, TSH3 wRFLX, CBC, [id number], T4F, CMP, [id number], LDLD, A1C WTH eA #### [place] [phone] USACalcium [Mass/Vol]9.1 mg/dLNormal8.2-10.2FMagruder Memorial HospitalComment on above:Performed By: #### LIPID, TSH3 wRFLX, CBC, [id number], T4F, CMP, HYWC80JET, LDLD, A1C WTH eA #### [facility] [address] [place] [id number] USAChloride [Moles/Vol]104 mmol/FYjwjky73-263DgoivymfeCleveland Clinic Mentor HospitalComment on above:Performed By: #### LIPID, TSH3 wRFLX, CBC, [id number], T4F, CMP, YJBD55SHW, LDLD, A1C WTH eA #### [facility] [address] [place] [id number] USACO2 [Moles/Vol]20.0 mmol/LLow22.0-30.0[facility] HospitalComment on above:Performed By: #### LIPID, TSH3 wRFLX, CBC, [id number], T4F, CMP, [id number], LDLD, A1C WTH eA #### [place] [id number] USACreatinine [Mass/Vol]0.73 mg/dLNormal0.64-1.27[facility] HospitalComment on above:Performed By: #### LIPID, TSH3 wRFLX, CBC, [id number], T4F, CMP, MZBC11MLG, LDLD, A1C WTH eA #### [place] [address] USAEstimated GFR ( Marisol> 60NoMemorial Health System Selby General HospitalComment on above:Result Comment: GFR estimated reference range: According to KDOQI guidelines, <60 ml/min/1.73m2 is sufficient to diagnose a patient with chronic kidney disease.Performed By: #### LIPID, TSH3 wRFLX, CBC, [id number], T4F, CMP, [id number], LDLD, A1C WTH eA #### [address] [address] USAEstimated GFR (Non- Am> 60NoMemorial Health System Selby General HospitalComment on above:Performed By: #### LIPID, TSH3 wRFLX, CBC, [id number], T4F, CMP, [id number], LDLD, A1C WTH eA #### [address] [address] USAGlobulin (S) [Mass/Vol]2.9 g/dLNoMemorial Health System Selby General HospitalComment on above:Performed By: #### LIPID, TSH3 wRFLX, CBC, DRYK54CT, T4F, CMP, [id number], LDLD, A1C WTH eA #### [place] [phone] USAGlucose [Mass/Vol]86 mg/pZNqyshp03-953InssqixsnCleveland Clinic Mentor HospitalComment on above:Result Comment: Random Glucose Reference Range is dependent on time and content of last meal. Glucose of more than 200 mg/dL in a nonstressed, ambulatory subject supports the diagnosis of Diabetes Mellitus. ADA recommended reference rangePerformed By: #### LIPID, TSH3 wRFLX, CBC, VWIF74WX, T4F, CMP, [id number], LDLD, A1C WTH eA #### [facility] [address] [place] [address] USAPotassium [Moles/Vol]4.1 mmol/LNormal3.5-5.1FMagruder Memorial HospitalComment on above:Performed By: #### LIPID, TSH3 wRFLX, CBC, [id number], T4F, CMP, [id number], LDLD, A1C WTH eA #### [place] [address] USAProtein [Mass/Vol]6.6 g/dLNormal6.1-7.9[facility] HospitalComment on above:Performed By: #### LIPID, TSH3 wRFLX, CBC, [id number], T4F, CMP, [id number], LDLD, A1C WTH eA #### [facility] [address] [place] [address] USASodium [Moles/Vol]133 mmol/UJmm694-213CecxbyzzrCleveland Clinic Mentor HospitalComment on above:Performed By: #### LIPID, TSH3 wRFLX, CBC, [id number], T4F, CMP, [id number], LDLD, A1C WTH eA #### [place] [phone] USAUrea nitrogen [Mass/Vol]6 mg/dLLow9-23[facility] HospitalComment on above:Performed By: #### LIPID, TSH3 wRFLX, CBC, [id number], T4F, CMP, [id number], LDLD, A1C WTH eA #### [place] [address] USACreatinine and Glomerular filtration rate.predicted panel (S/P/Bld)Ordered By: Medhat Baltazar on 30-82-0318Iqyorbbyzy [Mass/Vol]0.73 mg/dL0.64-1.27[facility] HospitalEosinophils Auto (Bld) [#/Vol] Ordered By: Medhat Baltazar on 56-56-2880Gcecaayxmkb (Bld) [#/Vol]0.0 10*3/uL 0.0-0.45[facility] HospitalEosinophils/100 WBC Auto (Bld)Ordered By: Medhat Baltazar on 60-59-8815Slksulymddd/100 WBC (Bld)0.4 %.[facility] HospitalErythrocyte distribution width Auto (RBC) [Ratio]Ordered By: Medhat Baltazar on 70-89-5571Hfqpjbjflwc distribution width (RBC) [Ratio] 13.7 %12.0-14.8[facility] HospitalEstimated glomerular filtration rate (GFR) non- AmericanOrdered By: Medhat Baltazar on 03-12-2022 GFR/1.73 sq M.predicted among non-blacks MDRD (S/P/Bld) [Vol rate/Area]> 60 mL/MinCleveland Clinic Mentor HospitalFolate [Mass/volume] in Serum or Plasma Ordered By: Medhat Baltazar on 29-94-0621Edzpeh [Mass/Vol]7.2 ng/mL>5.9 [facility] HospitalComment on above:Folate reference range: >5.9 ng/ml The WHO technical consultation on folate and vitamin b12 deficiencies has determined that folate concentrations less than 4 ng/ml are considered deficient.Folate reference range: >5.9 ng/mlThe WHO technical consultation on folate and vitamin m89eriyhwulovcl has determined that folate concentrations lessthan 4 ng/ml are considered deficient.Free T4 (Free Thyroxine)on 57-28-0882Nxan T4 [Mass/Vol]0.41 ng/dLLow0.61-1.12[facility] HospitalComment on above:Performed By: #### LIPID, TSH3 wRFLX, CBC, WIFP66XA, T4F, CMP, CLLF42QJV, LDLD, A1C WTH eA #### [facility] [address] [place] [address] USAGlobulin Calc (S) [Mass/Vol]Ordered By: Medhat Baltazar on 24-19-6838Fifiqmsz (S) [Mass/Vol]2.9 g/dLCleveland Clinic Mentor Hospital Glucose mean value [Mass/volume] in Blood Estimated from glycated hemoglobin Ordered By: Medhat Baltazar on 99-39-7450Afepuig glucose Estimated from glycated hemoglobin (Bld) [Mass/Vol]111 mg/dLCleveland Clinic Mentor Hospital Hematocrit Auto (Bld) [Volume fraction]Ordered By: Medhat Baltazar on 84-64-3786Eqstqeyjjv (Bld) [Volume fraction]43.7 %38.8-50.0[facility] HospitalHemoglobin A1c percentageOrdered By: Medhat Baltazar on 53-86-3556CrQ9f (Bld) [Mass fraction]5.5 %4.3-5.6FMagruder Memorial HospitalComment on above:Increased risk for diabetes: 5.7 - 6.4 diabetes: >6.4 glycemic control for adults with diabetes: <7.0Increased risk for diabetes: 5.7 - 6.4diabetes: >6.4glycemic control for adults with diabetes: <7.0LDL Cholesterol Measuredon 07-98-2699UYP Cholesterol Aphxtceu33 mg/dLNormal0-100 [facility] HospitalComment on above:Result Comment: LDL ATP III CLASSIFICATION LDL less than 100 mg/dL Optimal LDL 100-129 mg/dL Near or above optimal LDL 130-159 mg/dL Borderline high LDL 160-189 mg/dL High LDL greater than 189 mg/dL Very highPerformed By: #### LIPID, TSH3 wRFLX, CBC, BQRH75VO, T4F, CMP, OKHD23GPL, LDLD, A1C WT eA #### [facility] [address] [place] [address] USALaboratory - Chemistry and Chemistry - challengeOrdered By: Medhat Baltazar on 57-96-3021Wtyfvtglj (Vitamin B12) [Mass/Vol]376 pg/mL 180-914[facility] HospitalLaboratory - Hematology and Cell counts Ordered By: Medhat Baltazar on 37-23-0388Cwzqboojr RBC/100 WBC (Bld) [Ratio]0.1 %0-0.5FMagruder Memorial HospitalLipid Panelon 47-99-5011Avjqrzbxslu [Mass/Vol]157 mg/qPDtscqg635-126EkqwobvfxCleveland Clinic Mentor HospitalComment on above:Result Comment: Chol less than 200 mg/dl low risk Chol 201-239 mg/dl borderline risk Chol 240 mg/dl and greater high riskPerformed By: #### LIPID, TSH3 wRFLX, CBC, QWLF47CU, T4F, CMP, EWOU64QCB, LDLD, A1C WTH eA #### [facility] [address] [place] [address] USACholesterol in HDL [Mass/Vol]66 mg/sBUoxgyw08-80MtgaxdfkxCleveland Clinic Mentor HospitalComment on above:Result Comment: HDL CHOL ATP-III CLASSIFICATION Cardiovascular Risk HDL > or equal to 60 mg/dL LOW HDL < 40 mg/dL HIGHPerformed By: #### LIPID, TSH3 wRFLX, CBC, BDQC99JF, T4F, CMP, TVBS51EBO, LDLD, A1C WTH eA #### [facility] [address] [place] [address] USACholesterol.total/Cholesterol in HDL [Mass ratio]2.4 {ratio}Normal<5.0[facility] HospitalComment on above:Performed By: #### LIPID, TSH3 wRFLX, CBC, JBCG66WR, T4F, CMP, JXIT98HNA, LDLD, A1C WTH eA #### [facility] [address] [place] [address] USALDL Cholesterol,Aowwfskvso35 mg/dLNormal0-100[facility] HospitalComment on above:Result Comment: LDL ATP III CLASSIFICATION LDL less than 100 mg/dL Optimal LDL 100-129 mg/dL Near or above optimal LDL 130-159 mg/dL Borderline high LDL 160-189 mg/dL High LDL greater than 189 mg/dL Very highPerformed By: #### LIPID, TSH3 wRFLX, CBC, SQCC84JP, T4F, CMP, DIPI18OZK, LDLD, A1C WTH eA #### [facility] [address] [place] [address] USATriglyceride w/Tdvukk074 mg/sNBwmx71-308YgflvokhsCleveland Clinic Mentor HospitalComment on above:Result Comment: TRIG ATP III CLASSIFICATION TRIG less than 150 mg/dL Normal TRIG 150-199 mg/dL Borderline high TRIG 200-500 mg/dL High TRIG greater than 500 mg/dL Very high Standard traceable to the Center for Disease Conrtrol and Prevention (CDC) test method.Performed By: #### LIPID, TSH3 wRFLX, CBC, ARYF71ZQ, T4F, CMP, UTPF31DUN, LDLD, A1C [facility] eA #### [facility] [address] [place] [id number] USAVLDL IAMKMNIWDEK97 mg/dLNormalCleveland Clinic Mentor HospitalComment on above:Performed By: #### LIPID, TSH3 wRFLX, CBC, CAKI61HJ, T4F, CMP, LCQI34WWG, LDLD, A1C [facility] eA #### [facility] [address] [place] [id number] USALymphocytes Auto (Bld) [#/Vol]Ordered By: Medhat Baltazar on 12-98-8472Vfwoikunpwi (Bld) [#/Vol]1.6 10*3/uL1.00-4.8[facility] HospitalLymphocytes/100 WBC Auto (Bld)Ordered By: Medhat Baltazar on 26-49-2598Dsbstzcasbq/100 WBC (Bld)29.2 %.[facility] Auto (RBC) [Entitic mass]Ordered By: Medhat Baltazar on 24-40-8136SQL (RBC) [Entitic mass]34.1 pg27.5-35.2FBlanchard Valley Health System Blanchard Valley HospitalHC Auto (RBC) [Mass/Vol]Ordered By: Medhat Baltazar on 24-60-4737MQGS (RBC) [Mass/Vol]33.8 g/dL32.5-35.6FBlanchard Valley Health System Blanchard Valley HospitalV Auto (RBC) [Entitic vol] Ordered By: Medhat Baltazar on 17-89-4521PBV (RBC) [Entitic vol]101.1 fL 83.5-101[facility] HospitalMonocytes Auto (Bld) [#/Vol]Ordered By: Medhat Baltazar on 35-53-8633Rdrkjaphg (Bld) [#/Vol]0.4 10*3/uL0.0-0.8 [facility] HospitalMonocytes/100 WBC Auto (Bld)Ordered By: Medhat Baltazar on 08-92-7880Amqmkztjh/100 WBC (Bld)7.0 %.[facility] HospitalNeutrophils Auto (Bld) [#/Vol]Ordered By: Medhat Baltazar on 99-36-8723Mawwnzjwgpj (Bld) [#/Vol]3.3 10*3/uL1.8-7.7FMagruder Memorial HospitalNeutrophils/100 WBC Auto (Bld)Ordered By: Medhat Baltazar on 03-12-2022 Neutrophils/100 WBC (Bld)62.8 %.[facility] HospitalNo Panel InformationOrdered By: Medhat Baltazar on 46-89-945240516167-Boxyvze Vitamin D Total 7.9 ng/rS30-518KxqvsfknuCleveland Clinic Mentor HospitalComment on above:VITAMIN D STATUS 25(OH)VITAMIN D RANGE (ng/mL) Deficient <20 Insufficient 20 to <30 Sufficient 30 to 100 Reference: Franklyn Joseph, Isaac FRANCES, et al. Evaluation,treatment, and prevention of vitamin D deficiency; an Endocrine Society clinical practice guideline. JCEM. 2010; 96(7):1911-30.VITAMIN D STATUS 25(OH)VITAMIN D RANGE (ng/mL) Deficient <20 Insufficient 20 to <07Ezygehahdo11 to 100Reference: Franklyn Joseph, Isaac FRANCES, et al. Evaluation,treatment, and prevention of vitamin D deficiency; an Endocrine Society clinical practice guideline. JCEM. 2010; 96(7):1911-30.Estimated GFR ()> 60 mL/MinCleveland Clinic Mentor HospitalComment on above: GFR estimated reference range: According to KDOQI guidelines, <60 ml/min/1.73m2 is sufficient todiagnose a patient with chronic kidney disease.Pharmacy Creatinine Clearance (ChemN/AFMagruder Memorial HospitalPlatelet mean volume Auto (Bld) [Entitic vol]Ordered By: Medhat Baltazar on 03-12-2022 Platelet mean volume (Bld) [Entitic vol]8.7 fL6.6-10.1FMagruder Memorial HospitalPlatelets Auto (Bld) [#/Vol]Ordered By: Medhat Baltazar on 03-12-2022 Platelets (Bld) [#/Vol]218 10*3/fA192-057HzxldzsdzCleveland Clinic [facility] Hospital Protein [Mass/volume] in Serum or PlasmaOrdered By: Medhat Baltazar on 26-66-2414Codiiul [Mass/Vol]6.6 g/dL6.1-7.9[facility] HospitalRBC Auto (Bld) [#/Vol]Ordered By: Medhat Baltazar on 81-39-5887PQG (Bld) [#/Vol] 4.33 10*6/uL3.90-5.60Pomerene Hospitalerum or plasma alanine aminotransferase measurement without P-5'-P (enzymatic activiOrdered By: Medhat Baltazar on 39-46-0656BPF No additional P-5'-P [Catalytic activity/Vol] 39 U/J71-46QruumulcsPomerene Hospitalerum or plasma albumin/globulin mass ratioOrdered By: Medhat Baltazar on 54-59-3954Zblszkn/Globulin [Mass ratio]1.3 {ratio}Pomerene Hospitalerum or plasma alkaline phosphatase measurement (enzymatic activity/volume)Ordered By: Medhat Baltazar on 14-88-4024ZWQ [Catalytic activity/Vol]87 U/R54-20GmdfbhggkPomerene Hospitalerum or plasma aspartate aminotransferase measurement (enzymatic activity/volume)Ordered By: Medhat Baltazar on 74-55-4653LCP [Catalytic activity/Vol]23 U/H85-29FcveivlimPomerene Hospitalerum or plasma calcium measurement (mass/volume)Ordered By: Medhat Baltazar on 28-23-4073Rwxexki [Mass/Vol]9.1 mg/dL8.2-10.2FMercy Health St. Elizabeth Youngstown Hospitalerum or plasma chloride measurement (moles/volume)Ordered By: Medhat Baltazar on 03-12-2022 Chloride [Moles/Vol]104 mmol/C17-475ZlpxveajiPomerene Hospitalerum or plasma cholesterol in LDL measurement (mass/volume)Ordered By: Medhat Baltazar on 87-52-3573Xfjrmdfpnbr in LDL [Mass/Vol]64 mg/dL0-100[facility] HospitalComment on above:LDL ATP III CLASSIFICATION LDL less than 100 mg/dL Optimal LDL 100-129 mg/dL Near or above optimal LDL 130-159 mg/dL Borderline high LDL 160-189 mg/dL High LDL greater than 189 mg/dL Very highLDL ATP III CLASSIFICATIONLDL less than 100 mg/dL OptimalLDL 100-129 mg/dL Near or above gxcvzbdPUI055-786 mg/dL Borderline highLDL 160-189 mg/dL HighLDL greater than 189 mg/dL Very highSerum or plasma glucose measurement (mass/volume)Ordered By: Medhat Baltazar on 03-12-2022 Glucose [Mass/Vol]86 mg/zC41-744HbxpvapymCleveland Clinic Mentor HospitalComment on above:ADA recommended reference range Random [...] (HDL) cholesterol measurementOrdered By: Medhat Baltazar on 70-17-9084Vklumkxqzss in HDL [Mass/Vol]66 mg/rK02-22LvmifoeuxCleveland Clinic Mentor HospitalComment on above:HDL CHOL ATP-III CLASSIFICATION Cardiovascular Risk HDL > or equal to 60 mg/dL LOW HDL < 40 mg/dL HIGHHDL CHOL ATP-III CLASSIFICATION Cardiovascular RiskHDL > or equal to 60 mg/dL LOWHDL < 40 mg/dL HIGHSerum or plasma potassium measurement (moles/volume)Ordered By: Medhat Baltazar on 48-79-2582Bqqwrgrzc [Moles/Vol]4.1 mmol/L3.5-5.1FMercy Health St. Elizabeth Youngstown Hospitalerum or plasma sodium measurement (moles/volume)Ordered By: Medhat Baltazar on 65-84-7087Xipmjf [Moles/Vol]133 mmol/K640-797SaxyleoftPomerene Hospitalerum or plasma total bilirubin measurement (mass/volume)Ordered By: Medhat Baltazar on 39-30-7182Ohrdqbnvl [Mass/Vol]1.5 mg/dL0.3-1.2FMagruder Memorial Hospital Comment on above:Samples from patients who have taken Naproxen have shown spurious elevation in Total Bilirubin levels. A metabolite of Naproxen, O- desmethylnaproxen, has been shown to interfere with the Jenlakisha-Pb method for measuring Total Bilirubin.Serum or plasma total carbon dioxide measurement (moles/volume)Ordered By: Medhat Baltazar on 45-57-0477OM1 [Moles/Vol]20.0 mmol/L22.0-30.0Pomerene Hospitalerum or plasma total cholesterol/high density lipoprotein (HDL) cholesterol mass ratOrdered By: Medhat Baltazar on 90-99-3565Rfvtcwbejll.total/Cholesterol in HDL [Mass ratio] 2.4 {ratio}<5.0Pomerene Hospitalerum or plasma urea nitrogen measurement (mass/volume)Ordered By: Medhat Baltazar on 01-74-8799Oppl nitrogen [Mass/Vol]6 mg/dL9-23[facility] HospitalTS DL <= 0.005 mIU/L Qn Ordered By: Medhat Baltazar on 60-56-9785BUT Qn44.00 m[IU]/L0.45-5.33[facility] HospitalThyroid Stim Hormone w/Rflxon 38-63-6575Vcxqxdq Stim Hormone w/Rflx44.00 u[iU]/mLHigh0.45-5.33[facility] Comment on above:Performed By: #### LIPID, TSH3 wRFLX, CBC, [id number], T4F, CMP, [id number], LDLD, A1C WTH eA #### [facility] [address] [place] [address] USAThyroxine (T4) free [Mass/volume] in Serum or Plasma Ordered By: Medhat Baltazar on 84-18-8369Eexu T4 [Mass/Vol]0.41 ng/dL0.61-1.12 [facility] HospitalTriglyceride [Mass/volume] in Serum or Plasma Ordered By: Medhat Baltazar on 77-76-4576Ecreeogzelzo [Mass/Vol]243 mg/hT25-588 [facility] HospitalComment on above:TRIG ATP III CLASSIFICATION TRIG [...] and Prevention (CDC) test method.Vit. B12/Folate Profileon 90-29-3457Aqtmvdxeo (Vitamin B12) [Mass/Vol]376 pg/xEWawmvv192-486JdmwgphmiCleveland Clinic Mentor HospitalComment on above:Performed By: #### LIPID, TSH3 wRFLX, CBC, XRSP81DU, T4F, CMP, XIHP96XNU, LDLD, A1C WTH eA #### [facility] [address] [place] [address] USAFolate7.2 ng/mLNormal>5.9[facility] Comment on above:Result Comment: Folate reference range: >5.9 ng/ml The WHO technical consultation on folate and vitamin b12 deficiencies has determined that folate concentrations less than 4 ng/ml are considered deficient.Performed By: #### LIPID, TSH3 wRFLX, CBC, FHOG05TY, T4F, CMP, HFEU06LRM, LDLD, A1C WTH eA #### [facility] [address] [place] [address] USAVitamin D 25 Hydroxy Totalon 49-92-4036Xlilpfx D 25 Hydroxy Total7.9 ng/zCIhg60-009VrtsjqxgtCleveland Clinic Mentor HospitalComment on above:Result Comment: VITAMIN D STATUS 25(OH)VITAMIN D RANGE (ng/mL) Deficient <20 Insufficient 20 to <30 Sufficient 30 to 100 Reference: Jay MF,Franklyn NC, Isaac FRANCES, et al. Evaluation,treatment, and prevention of vitamin D deficiency; an Endocrine Society clinical practice guideline. JCEM. 2010; 96(7):1911-30. PERFORMED BY: [facility] [address] [place] [address] PATHOLOGIST [employer] MARCO ANTONIO FINLEY M.D.Performed By: #### LIPID, TSH3 wRFLX, CBC, XDGW82AR, T4F, CMP, ERVO18ELP, LDLD, A1C WTH eA #### [facility] [address] [place] [address] USAOffice Visit (Cardiology)on 83-75-6674Wtahyc-up visit Diagnoses/Problems Assessed Atherosclerosis of coronary artery of chicken ranch heart without angina pectoris (414.01) (I25.10) Essential [...] week Orders Atherosclerosis of coronary artery of chicken ranch heart without angina pectoris Renew: Aspirin Low [...] we can help. You may also call [phone] for free resources and assistance.; Status:Complete - [...] Ondansetro (more content not included)...NormalUH TouchworksTobacco Screening.on 30-48-4373Alylg depression screening assessmentNo-[facility] [employer] 250 DO Work Phone: Tobacco use status CPHSb) NoM-[facility] 250 DO Work Phone: CB AUTO DIFFon 65-18-6759VNYZ #0.0 103/ulNormal 0.0-0.1The Parkwood HospitalComment on above:Performed By: #### LACT #### [facility] [address] [place] [address] Dr. Wilda Yousifphils/100 WBC (Bld)0.3 %Normal0.2-2.0[facility] Comment on above:Performed By: #### LACT #### [facility] [address] [place] [address] Dr. Wilda Carr #0.0 103/ulNormal0.0-0.7The Parkwood HospitalComment on above: Performed By: #### LACT #### [facility] [address] [address] [address] Wilda Cantuosinophils/100 WBC (Bld)0.3 %Critically low0.9-7.0The [facility] Hospitalment on above:Performed By: #### LACT #### [facility] [address] [place] [address] Dr. Wilda Canturythrocyte distribution width (RBC) [Ratio]13.5 %Rmroji30.0-15.0 The Parkwood HospitalComment on above:Performed By: #### LACT #### [facility] [address] [place] [address] Dr. Wilda PatelHematocrit (Bld) [Volume fraction]42.5 %Ckhovq43.0-54.0The [facility] HospitalComment on above:Performed By: #### LACT #### [facility] [address] [place] [address] Dr. Wilda PatelHemoglobin (Bld) [Mass/Vol]14.5 g/eFPoexdv67.0-18.0The [facility] Hospitalment on above:Performed By: #### LACT #### [facility] [address] [place] [address] Dr. Wilda Candelario #0.05 10e3/ulCritically high0.00-0.03[facility] Comment on above:Performed By: #### LACT #### [facility] [address] [place] [address] Dr. Wilda Candelario %0.5 %Normal0.0-0.5The [facility] Hospitalment on above: Performed By: #### LACT #### [facility] [address] [place] [address] Dr. Wilda BarrettMPH #1.9 103/ulNormal1.2-3.8The [facility] HospitalComment on above:Performed By: #### LACT #### [facility] [address] [place] [address] Dr. Wilda Barrettmphocytes/100 WBC (Bld)17.6 %Critically low20.5-60.0The [facility]wood HospitalComment on above:Performed By: #### LACT #### [facility] [address] [place] [address] Dr. Widla Moore DIFF REQNONormalThe Parkwood HospitalComment on above: Performed By: #### LACT #### [facility] [address] [place] [address] Dr. Wilda Whitaker (RBC) [Entitic mass]33.1 ntDzrglf87.9-34.0The [facility]wood HospitalComment on above:Performed By: #### LACT #### [facility] [address] [place] [address] Dr. Wilda Whitaker (RBC) [Mass/Vol]34.1 g/dTOtbbax23.9-35.2The [facility]wood HospitalComment on above:Performed By: #### LACT #### [facility] [address] [place] [address] Dr. Wilda Whitaker (RBC) [Entitic vol]97.0 fLCritically high80.0-94.0[facility] Medical CenterComment on above:Performed By: #### LACT #### [facility] [address] [place] [address] Dr. Wilda Georges #0.9 103/ulCritically high0.3-0.8ThMount [facility]. [facility] Comment on above:Performed By: #### LACT #### [facility] [address] [place] [address] Dr. Wilda Castroocytes/100 WBC (Bld)8.0 %Normal1.7-12.0[facility] Comment on above:Performed By: #### LACT #### [facility] [address] [place] [address] Dr. Wilda Berry #7.9 103/ulCritically high1.4-6.5ThMount St. [facility] Comment on above:Performed By: #### LACT #### [facility] [address] [place] [address] Dr. Wilda Coronadoutrophils/100 WBC (Bld)73.3 %Somtkh96.0-75.0[facility] Medical CenterComment on above:Performed By: #### LACT #### [facility] [address] [address] [address] Wilda Acostalet mean volume (Bld) [Entitic vol]9.3 fLCritically low 9.5-13.5The [facility]wood HospitalComment on above:Performed By: #### LACT #### [facility] [address] [place] [address] Dr. Wilda PatelPLT261 103/djYyvjnl350-653Ois Parkwood HospitalComment on above: Performed By: #### LACT #### [facility] [address] [place] [address] Dr. Wilda PatelRBC4.38 106/ulCritically low4.70-6.10The [facility] HospitalComment on above:Performed By: #### LACT #### [facility] [address] [place] [address] Dr. Wilda PatelWBC10.8 103/ulNormal4.0-11.0The [facility] HospitalComment on above:Performed By: #### LACT #### [facility] [address] [place] [address] Dr. Wilda PatelCT ABD/PELV W CONon 70-53-6260TM ABD/PELV W CONCT ABDOMEN AND PELVIS WITH [...] Electronically authenticated by: CLAIR RAMIREZ Date: 2021-07-29 19:33[facility], IncCULTURE BLOODon 63-38-4403Cdjedtvbpgf examination of blood, cultureCulture Observations: NO GROWTH AT 5 DAYS.NormalMain Campus Medical CenterComment on above:Performed By: #### CMREP #### [facility] [address] [place] [address] Dr. Wilda PatelMicroscopic examination of blood, cultureCulture Observations: NO GROWTH AT 5 DAYS.NormalThe Parkwood HospitalComment on above:Performed By: #### CMREP #### [facility] [address] [place] [address] Dr. Wilda PatelCovid-19 PCR (CVDFLOATING HOSPITAL FOR CHILDREN)on 85-50-4545FQVN-CoV-2 (COVID-19) RNA SHREYA+probe Ql (Unsp spec)Not detectedNormalNOT DETECTEDMain Campus Medical Center Comment on above:Result Comment: This test is not yet approved or cleared by the [place] FDA. When there are no FDA-approved or cleared tests available, and other criteria are met, FDA can make tests available under an emergency access mechanism called an Emergency Use Authorization (EUA). The EUA for this test is supported by the [place] of Health and Human Service's (HHS's) declaration [...] consistent with SARS-CoV-2.Performed By: #### CVDTBH #### [facility] [address] [place] [address] Dr. Wilda Holden URINE PROFILEon 93-99-7212Zedrgopvi Ql (U)NegativeNormal NEGATIVEMain Campus Medical CenterComment on above:Performed By: #### ERUR #### [facility] [address] [place] [address] Dr. Wilda Walton (U)CLEARNormalCLEARMain Campus Medical CenterComment on above: Performed By: #### ERUR #### [facility] [address] [place] [address] Dr. Wilda Calderon (U)YELLOWNormalYELLOWMain Campus Medical CenterComment on above: Performed By: #### ERUR #### [facility] [address] [place] [address] Dr. Wilda Klein micrscopic examination will be performed if indicated. NormalMain Campus Medical CenterComment on above:Performed By: #### ERUR #### [facility] [address] [place] [address] Dr. Wilda PatelGlucose Ql (U)NegativeNormalNEGATIVEMain Campus Medical CenterComment on above:Performed By: #### ERUR #### [facility] [address] [place] [address] Dr. Wilda PatelHemoglobin Ql (U)NegativeNormalNEGATIVEOhio Valley Hospital on above:Performed By: #### ERUR #### [facility] [address] [address] [address] Wilda Morocho Ql (U)NegativeNormalNEGATIVEMain Campus Medical CenterComment on above:Performed By: #### ERUR #### [facility] [address] [place] [address] Dr. Wilda PatelLEUKOCYTESNegativeNormalNEGATIVEMain Campus Medical CenterComment on above:Performed By: #### ERUR #### [facility] [address] [place] [address] Dr. Wilda Ortiztrite Ql (U)NegativeNormalNEGATIVEThe Parkwood HospitalComment on above:Performed By: #### ERUR #### [facility] [address] [place] [address] Dr. Wilda PatelpH (U)5.5 [pH]Normal5-9The [facility] HospitalComment on above: Performed By: #### ERUR #### [facility] [address] [place] [address] Dr. Wilda PatelSPEC GRAVITY>=1.406Nbiarnei0.005-<=1.025The [facility] Comment on above:Performed By: #### ERUR #### [facility] [address] [place] [address] Dr. Wilda Duff PROTEINNegativeHobbsNEGATIVE/ TRACEMain Campus Medical Center Comment on above:Performed By: #### ERUR #### [facility] [address] [place] [address] Dr. Wilda oHang MICRO INDNOT INDICATEDSelect Medical Specialty Hospital [facility], IncComment on above:Performed By: #### ERUR #### [facility] [address] [place] [address] Dr. Wilda Kaurbilinogen Qn (U)0.2 {Maria Luisa'U}/dLNormal0.2 - 1.0[facility] Campus Medical CenterComment on above:Performed By: #### ERUR #### [facility] [address] [place] [address] Dr. Wilda TolliverCTATE/LACTIC ACIDon 06-32-2329Fymqzsm [Moles/Vol]2.2 mmol/L Critically high0.7-2.0The [facility]wood HospitalComment on above:Performed By: #### LACT #### [facility] [address] [address] [address] Wilda Álvarez 14(COMP METB)on 66-63-5731Fspiaqo [Mass/Vol]2.9 g/dL Critically low3.5-5.0The [facility]wood HospitalComment on above:Performed By: #### CMP #### [facility] [address] [address] [address] Wilda PatelAlbumin/Globulin [Mass ratio]0.7 {ratio}NormalThe Parkwood HospitalComment on above:Performed By: #### CMP #### [facility] [address] [place] [address] Dr. Wilda FragaP [Catalytic activity/Vol]137 U/LCritically pcud49-256Tda [facility] HospitalComment on above:Performed By: #### CMP #### [facility] [address] [place] [address] Dr. Wilda FragaT [Catalytic activity/Vol]17 U/LCritically ikk93-79Gtt Parkwood HospitalComment on above:Performed By: #### CMP #### [facility] [address] [place] [address] Dr. Wilda Nelson gap [Moles/Vol]14.8 mmol/LNormalThe [facility] Comment on above:Performed By: #### CMP #### [facility] [address] [place] [address] Dr. Wilda PatelAST [Catalytic activity/Vol]15 U/LCritically jwy44-12Fxf [facility] HospitalComment on above:Performed By: #### CMP #### [facility] [address] [address] [address] Wilda PatelBilirubin [Mass/Vol]0.7 mg/dLNormal0.2-1.3[facility] Comment on above:Performed By: #### CMP #### [facility] [address] [address] [address] Wilda PatelCalcium [Mass/Vol]8.8 mg/dLNormal8.4-10.2[facility] Comment on above:Performed By: #### CMP #### [facility] [address] [address] [address] Wilda PatelChloride [Moles/Vol]97 mmol/LCritically wrk96-639Ruf [facility] HospitalComment on above:Performed By: #### CMP #### [facility] [address] [address] [address] Wilda PatelCO2 [Moles/Vol]26.9 mmol/EZrlzhf98.0-30.0[facility] Comment on above:Performed By: #### CMP #### [facility] [address] [place] [address] Dr. Wilda PatelCreatinine [Mass/Vol]0.95 mg/dLNormal0.66-1.25The [facility] HospitalComment on above:Performed By: #### CMP #### [facility] [address] [address] [address] Astudillo ChangEGFR-AF KAZAKH>60Normal>=60The [facility] HospitalComment on above:Performed By: #### CMP #### [facility] [address] [place] [address] Dr. Wilda CantuGFR-NON AF KAZAKH>60Normal>=60The [facility] HospitalComment on above:Performed By: #### CMP #### [facility] [address] [place] [address] Dr. Wilda PatelGlobulin (S) [Mass/Vol]4.2 g/dLNormalThe [facility] HospitalComment on above:Performed By: #### CMP #### [facility] [address] [place] [address] Dr. Wilda PatelGlucose [Mass/Vol]97 mg/zOQxeimw78-735Dtu [facility] Comment on above:Performed By: #### CMP #### [facility] [address] [place] [address] Dr. Wilda PatelPotassium [Moles/Vol]3.7 mmol/LNormal3.4-5.0[facility] Comment on above:Performed By: #### CMP #### [facility] [address] [place], [place] [address] Dr. Wilda PatelProtein [Mass/Vol]7.1 g/dLNormal6.1-8.2[facility] Comment on above:Performed By: #### CMP #### [facility] [address] [place], [place] [address] Dr. Wilda PatelSodium [Moles/Vol]135 mmol/LCritically oua083-323Jjf [facility] HospitalComment on above:Performed By: #### CMP #### [facility] [address] [place], [place] [address] Dr. Wilda PatelUrea nitrogen [Mass/Vol]11.0 mg/dLNormal9.0-20.0The [facility] HospitalComment on above:Performed By: #### CMP #### [facility] [address] [place] [address] Dr. Wilda Cobos nitrogen/Creatinine [Mass ratio]11.6 mg/mgNormalThe Parkwood HospitalComment on above:Performed By: #### CMP #### [facility] [address] [place], [place] [address] Dr. Wilda PatelTobaccesequiel Screening.on 19-67-8538Zuwphxz use status CPb) [facility] 250 DO Work Phone: Vital Signs Date TimeVital SignValuePerforming MbeunyhlyIxazrhqt73-44-8226 12:48-0400Body fzeyfn913.6 cmTimothy Maurepas DO Work Phone: noms Spaofcdmlw23-87-8515 12:48-0400Body mass index (BMI) [Ratio]41.32 kg/s7Ubsknzh Maurepas DO Work Phone: noms Telvzdgbod78-50-7044 12:48-0400Body temperature 97.39 [degF]Amber Maurepas DO Work Phone: [phone])[address]08-13-2025 12:48-0400Body lgqufh183.12 kgTimothy Maurepas DO Work Phone: [phone])[facility] [place], [place] [address]Fqweuftyqf82-13-0690 12:48-0400Diastolic blood ceuugdsq65 mm[Hg]Amber Maurepas DO Work Phone: [phone])[address] [place], [place] [address]108-13-2025 12:48-0400Heart toxt975 /min Amber Maurepas DO Work Phone: [phone])[address] [place], [place] [address]108-13-2025 12:48-3063FbA1% (BldA) [Mass fraction]95 %Amber Maurepas DO Work Phone: [phone])[address] [place], [place] 65[address]108-13-2025 12:48-0400Systolic blood khoqwfjz965 mm[Hg]Amber Maurepas DO Work Phone: [phone])[address] [place], [place] [address]105-09-2025 13:26-0400Blood Pressure LocationThomas [facility] 13:26-0400 Diastolic blood ihfzfjoj61 mm[Hg]Juan Francisco [facility]05-09-2025 13:26-0400Heart coec040 /minThomas Johnson [facility]05-09-2025 13:26-0400 Respiratory rate22 /minThomas Johnson [facility]05-09-2025 13:26-7732DdC5% (BldA) [Mass fraction]96 %Juan Francisco [facility]05-09-2025 13:26-0400 Systolic blood npkejfik861 mm[Hg]Juan Francisco [facility]01-30-2025 13:32-0500 Diastolic blood juaohuyz63 mm[Hg]Blanco Lazcano [facility]01-30-2025 13:32-0500Heart rate98 /minMikhail Chingus [address] [place], [place] 7613401-30-2025 13:32-0500 Respiratory rate18 /minMikhail Kirnus [address] [place], [place] [address]13401-30-2025 13:32-1726OdF3% (BldA) [Mass fraction]98 %Blanco Kirnus [address] [place], [place] [address]13401-30-2025 13:32-0500 Systolic blood okqllrwj737 mm[Hg]Blanco Kirnus [address] [place], [place] 7613401-07-2025 07:28-0500Blood Pressure LocationMikhail Kirnus [address] [place], [place] 7613401-07-2025 07:28-0500 Diastolic blood mm[Hg]Blanco Kirnus [address] [place], [place] 7613401-07-2025 07:28-0500Heart ezdj144 /minMikhail Kirnus [address] [place], [place] 7613401-07-2025 07:28-0500 Respiratory rate18 /minMikhail Kirnus [address] [place], [place] 7613401-07-2025 07:28-1054OqS1% (BldA) [Mass fraction]97 %Blanco Kirnus [address] [place], [place] 7613401-07-2025 07:28-0500 Systolic blood ebmytotv860 mm[Hg]Blanco Kirnus [address] [place], [place] 7613410-30-2024 13:37-0400 Diastolic blood grpjoyoj00 mm[Hg]Blanco Kirnus [address] [place], [place] 7613410-30-2024 13:37-0400Heart ghko719 /minMikhail Kirnus [address] [place], [place] [address]13410-30-2024 13:37-0400 Respiratory rate16 /minMikhail Kirnus [facility]10-30-2024 13:37-0406GqD9% (BldA) [Mass fraction]96 %Blanco [facility]10-30-2024 13:37-0400 Systolic blood dudtxhon479 mm[Hg]Blanco Lazcano [facility]10-02-2024 11:00-0400Body hfxygn839.6 cmLeanne Edvin DO Work Phone: [facility] CenterZmsegldrco55-44-5551 11:00-0400Body mass index (BMI) [Ratio]40.35 kg/r3Wuxwkw Edvin DO Work Phone: [facility] CenterZzjklahqkb53-68-2276 11:00-0400Body wdzpso795.4 kgLeanne Edvin DO Work Phone: [facility] CenterRwwqgtihrn56-07-4646 11:00-0400Diastolic blood cfexuvmm21 mm[Hg]Misti Edvin DO Work Phone: [facility] CenterYnuvflucwq99-72-6155 11:00-0400Heart rate84 /min Misti Edvin DO Work Phone: [facility] CenterCoahcrhamb11-18-1745 11:00-5752PdU1% (BldA) [Mass fraction]93 %Misti Edvin DO Work Phone: [facility] CenterHeajrdovfu05-29-8916 11:00-0400Systolic blood izawmkdb497 mm[Hg]Misti Edvin DO Work Phone: [facility] CenterNxwnjxhuwp07-74-0125 15:27-0400Body pmamqc458.6 cmTimothy Maurepas DO Work Phone: noFreeman [facility] SystemSnivnpxiln35-21-6029 15:27-0400Body mass index (BMI) [Ratio]38.09 kg/h5Gstruwy Maurepas DO Work Phone: noFreeman Health SystemYnfeipzhuy21-43-6443 15:27-0400Body temperature 96.49 [degF]Amber Maurepas DO Work Phone: [facility] CenterKcwnskazch55-66-5610 15:27-0400Body mzfuwf694.05 kgTimothy Maurepas DO Work Phone: NOFreeman Health SystemLktsdrnipc08-10-5008 15:27-0400Diastolic blood mm[Hg]Amber Maurepas DO Work Phone: [facility] CenterSricfbahlh39-11-3386 15:27-0400Heart kpgt959 /min Amber Maurepas DO Work Phone: [facility] CenterSjkfefjkkw56-58-2513 15:27-1759WnA3% (BldA) [Mass fraction]95 %Amber Maurepas DO Work Phone: noFreeman Health SystemEuxqoqpxhr26-64-7170 15:27-0400Systolic blood dupyguez523 mm[Hg]Amber Maurepas DO Work Phone: noFreeman Health SystemXvyundxntn61-38-0463 14:09-0500Body iqgsal779.64 cmReferring Provider [facility] [address] DO Work Phone: [phone] 14:09-0500Body mass index (BMI) [Ratio]34.7 kg/b8Fnnxfwfsq Provider [facility] 250 DO Work Phone: [phone]) 626-699601-25-2023 14:09-0500Body surface area Derived from formula2.06 r0Ghowkrajs Provider [facility] 250 DO Work Phone: [phone] 14:09-0500Body bibbgu78.52 kgReferring Provider [facility] [address] DO Work Phone: 1(592) 116-334301-25-2023 14:09-0500Diastolic blood jsbxlhko69 mm[Hg] Referring Provider [facility] 250 DO Work Phone: 1(676) 954-121801-25-2023 14:09-0500Heart rate84 /minReferring Provider [facility] [address] DO Work Phone: 1(479) 570-266401-25-2023 14:09-0500Systolic blood hfpxsouy311 mm[Hg] Referring Provider [facility] [address] DO Work Phone: 1(883) 299-139306-15-2022 15:27-0400Body ryatro314.64 cmReferring Provider [facility] [address] DO Work Phone: [phone] 15:27-0400Body mass index (BMI) [Ratio] 35.02 kg/b8Xfpazrgpm Provider [facility] [address] DO Work Phone: [phone] 15:27-0400Body surface area Derived from formula2.07 q5Hfqesbpcw Provider [facility] 250 DO Work Phone: 1(447)[phone] 15:27-0400Body croofi14.43 kgReferring Provider [facility] 250 DO Work Phone: 1([phone] 15:27-0400Diastolic blood porjuzad51 mm[Hg] Referring Provider [facility] [address] DO Work Phone: 1([phone])[phone] 15:27-0400Heart rate84 /minReferring Provider [facility] [address] DO Work Phone: [phone] 15:27-0400Systolic blood avnxyhad140 mm[Hg] Referring Provider [facility] [address] DO Work Phone: 1([phone] 11:50-0400Body .6 cmTrauma AxszuujmQqcvlPxmhdo25-34-4857 11:50-0400Body mass index (BMI) [Ratio]35.19 kg/m2 Trauma PwipwhstSqnfhLysphu58-41-6577 11:50-0400Body cewkzs85.88 kgTrauma JmffdgqqArgzcKkfjik97-45-9834 11:50-0400Diastolic blood mmetqjpx23 mm[Hg]Trauma PjorrklvVdxzsIytksr81-32-6729 11:50-0400Heart wkll033 /minTrauma Resident VimugGhqloq43-79-8839 11:50-0400Respiratory rate18 /minTrauma Resident NrnprQtdajt97-93-6842 11:50-0400Systolic blood xinlcvog964 mm[Hg]Trauma Resident OreibUjtlhn93-68-4955 11:05-0500Body eybhyk678.64 cmReferring Provider [facility] [address] DO Work Phone: [phone] 11:05-0500Body mass index (BMI) [Ratio] 35.83 kg/e7Wzquiwmjy Provider [facility] 250 DO Work Phone: [phone] 11:05-0500Body surface area Derived from formula2.09 s2Imaxeywhg Provider [facility] 250 DO Work Phone: 1(906) 459-395712-13-2021 11:05-0500Body hhngop214.7 kgReferring Provider [facility] 250 DO Work Phone: [phone] 11:05-0500Diastolic blood hqgzoeuv44 mm[Hg] Referring Provider [facility] 250 DO Work Phone: 1(838) 583-602212-13-2021 11:05-0500Heart rate96 /minReferring Provider [facility] 250 DO Work Phone: 1(633) 657-445512-13-2021 11:05-0500Systolic blood epvkiyko133 mm[Hg] Referring Provider [facility] 250 DO Work Phone: Encounters Encounter DateEncounter TypeCare ProviderFacilityStart: 05-24-2025 End: 04-67-3365ujahknrxitFolvsm A SteinFacility:FTMCStart: 03-07-2025 End: 38-58-8479Uhgpbl flowsheetAmber Cuellar DO Work Phone: [facility] 230Start: 03-07-2025 End: 64-22-2067Nmkhzo flowsheetTimclair Gomez Maurepas DO Work Phone: noms [facility] 230Start: 03-07-2025 End: 02-00-5125Sirkew outpatient visit 25 minutesTimothy Patricia Maurepas DO Work Phone: noms [facility] 230Comment on above: Chronic obstructive pulmonary disease, unspecified COPD type (HCC) (Primary Dx); Acquired hypothyroidism ; Impaired fasting blood sugar; Primary hypertensionStart: 03-07-2025 End: 06-57-7268qfpkyxvrsqGEELLPQ L CUTLERNot AvailableStart: 02-22-2025 End: 45-11-8780dxwlykpozoDvwljk A ElizabethFacility:FTMCStart: 02-21-2025 End: 95-52-6817GtzvygBcrfce Leah Edvin DO Work Phone: noms [place] OtolaryngologyComment on above:Chronic obstructive pulmonary disease, unspecified COPD type (HCC)Start: 12-01-2024 End: 39-56-3455otoniegbmiDpinus A SteinFacility:FTMCStart: 12-01-2024 End: 35-53-5782Ziifogz encounter procedureThomas A Elizabeth [facility] Start: 08-24-2024 End: 30-88-5852olxeeuptovCZ Blanco LazcanoFacility:FTMCStart: 08-24-2024 End: 80-87-4030Xieazvc encounter procedureBlanco Lazcano [facility] Start: 08-01-2024 End: 75-90-3150Nuxooimps to same day surgery centerBlanco Lazcano [facility] Start: 08-01-2024 End: 23-79-3221huzzcxgdpoUxsiiyo D KirnusFacility:FTMCStart: 07-24-2024 End: 85-47-4886ostqgxrlkuSjgetxy D KirmadiFacility:FTMCStart: 07-24-2024 End: 29-26-0762Zzozvdn encounter procedureBlanco Lazcano [facility] Start: 06-20-2024 End: 31-15-6701higumwbxekWW Blanco VerdinmadiFacility:FTMCStart: 06-20-2024 End: 25-96-8320Cnymjmm encounter procedureBlanco Lazcano [facility] Start: 06-02-2024 End: 35-89-4470Hpyjlipud Result EncounterShazia MCKEON Work Phone: noms External Department UnsolicitedStart: 06-02-2024 End: 36-76-4150Nggacjiqi Result EncounterShazia MCKEON Work Phone: noms External Department UnsolicitedStart: 05-24-2024 End: 65-52-4215dsdzbewhqhGHDZ NONEFacility:FTMCStart: 05-24-2024 End: 58-10-0408Ovpwrgp encounter procedureBlanco Lazcano [facility] Start: 04-26-2024 End: 24-61-8794Zlcaga flowsChandler Lynn Edvin DO Work Phone: noms PULMStart: 04-26-2024 End: 67-50-3411Nytzxh flowsChandler Lynn Edvin DO Work Phone: noms SH PULMStart: 04-26-2024 End: 20-05-8850Yhkchj outpatient new 45 minutesMisti Pardo DO Work Phone: noms SH PULMComment on above:Chronic obstructive pulmonary disease, unspecified COPD type (CMS/HCC) (Primary Dx); COPD with acute exacerbation (CMS/HCC); HypersomnolenceStart: 04-26-2024 End: 55-14-5861kmrdxkteafONDZVJ K STRACKNot AvailableStart: 01-12-2024 End: 14-89-9776Lyrtja outpatient visit 25 minutesAmber Patricia Polo DO Work Phone: noMS [facility] 230Comment on above:COPD with acute exacerbation (CMS/HCC) (Primary Dx)Start: 54-34-5514xgvrqjufumCOUOATG PROVIDER [facility]: 12-03-2022 End: 87-69-0295Xmj-admission [facility] Start: 70-05-7148Fr RenewalReferring Provider Unknown [facility] 250 DO Work Phone: Start: 06-50-0458BTT, Provider: Aaron Ocampo, Status: Pen, Time: 2:00 PMReferring Provider [facility] 250 DO Work Phone: Start: 86-54-7497Dvuqme outpatient visit 25 minutes Referring Provider [facility] 250 DO Work Phone: Start: 85-15-5826jjatsxcjncJIB UNKNOWNFacility: Start: 08-17-2022 End: 38-19-8451Lqgqiz outpatient visit 25 minutesVanessa Wilson MD Work Phone: [facility] Trauma SurgeryComment on above:Attention to ileostomy (HCC) (Primary Dx); Chronic obstructive pulmonary disease, unspecified COPD type (HCC); Ischemic cardiomyopathy; S/P colostomy takedownStart: 05-59-5389Hd RenewalReferring Provider [facility] 250 DO Work Phone: Start: 31-98-2499Gw RenewalReferring Provider Unknown [facility] 250 DO Work Phone: Start: 24-93-1689Qkrvllmyo encounterVanessa Wilson MD Work Phone: [facility] Trauma SurgeryStart: 07-22-2022 End: 45-86-9651xnalnxoguzUYUOOB SERVICES FAMILYFacility:B4Xynjs: 06-08-2022 End: 59-36-6995szhjboevqvGmfsxtptj LowrieFacility:[facility] Hospitaltart: 06-08-2022 End: 87-38-6541vbprpydqgqJM Medhat Baltazar Work Phone: [facility] Work Phone: Start: 06-08-2022 End: 87-74-8970Hdoujbcl ReferredDO Medhat Baltazar Work Phone: [facility] HospitalStart: 38-67-1454qsjsfjecwgLYWSZR SAMSAFacility:W1Ifisx: 05-28-2022 End: 84-00-6265zaoqhnwmebIbknc N. MorrisFacility:[facility] Hospitaltart: 05-28-2022 End: 28-18-6767Zixvwyw encounter procedureDO Rastafarian Jimyaugust Work Phone: [facility]-Sleep LabStart: 45-53-6083Ahsjq UpdateReferring Provider [facility] 250 DO Work Phone: Start: 30-40-7728Eomqdhw encounter procedureReferring Provider Unknown[facility] [address] [place] Work Phone: Start: 81-65-2273scbqqfkphlVsAraceli Ocampo II Facility:[id number]: 03-12-2022 End: 61-63-2478ndqfwkgziqDrpkzycxa LowrieFacility:[facility] Hospitaltart: 03-12-2022 End: 60-34-7286Jsimgavn ReferredDO Carmine Jackson Work Phone: [facility] ServicesStart: 19-17-5365Wbngsa outpatient visit [address] [facility] MEDICAL CENTERNorth [place] [facility] 250 DO Work Phone: Start: 43-41-8414cdbzbpeinmMahluuaEusebio Ocampo II Facility:[id number]: 12-30-2021 End: 70-02-5752Lrvhbn outpatient visit 15 minutesTrauma Surgery Resident [facility] Trauma SurgeryComment on above:Attention to ileostomy (HCC) (Primary Dx); Body mass index (BMI) 35.0-35.9, adultStart: 10-57-8223Rvbmbyrua encounter Jina HolgerCleveland Clinic Foundation Trauma SurgeryStart: 21-86-9243Ih RenewalReferring Provider [facility] 250 DO Work Phone: Start: 30-82-2527Vo RenewalReferring Provider Unknown [facility] 250 DO Work Phone: Start: 11-76-5097Ov RenewalReferring Provider Unknown [facility] 250 DO Work Phone: Start: 07-29-2021 End: 09-56-5129kvhakbhnmyXWVKVP SERVICES FAMILYFacility:F6Vfdyk: 11-71-8051Ha RenewalReferring Provider [facility] 250 DO Work Phone: Start: 45-62-7018Rs RenewalReferring Provider Unknown [facility] 250 DO Work Phone: Start: 88-93-3211Clkdsh outpatient visit 25 minutes Referring Provider [facility] 250 DO Work Phone: Start: 97-49-2681TXWWMOz PCP [facility]- [place] 250 DO Work Phone: Start: 17-99-0928Gj RenewalNo PCP [facility]-[place] 250 DO Work Phone: Start: 95-62-3069Zhinlcx encounter procedureAARON RAMSEYNFacility:1532Start: 62-73-4695Hbymzbt encounter procedurePATY [place] Facility:[id number] encounter statusReferring Provider Unknown-[facility] 250 DO Work Phone: Procedures DateProcedureProcedure DetailPerforming ClinicianStart: 55-94-5570Qzfvpumjxruc coronary interventionMiedenilsonfreda Verdinmadi Comment on above:PCI of CircumflexStart: 72-86-2188VYC -LEADEncompass Health Rehabilitation [facility] Hugo MCKEON Work Phone: Start: 12-27-2023 End: 19-72-8857Ztvoupbowwmd telephone assessment minIleostomy in place (HCC)Acute Care Surgery ResidentComment on above:Ileostomy in place (HCC) (Primary Dx); CAD S/P percutaneous coronary angioplasty; Chronic obstructive pulmonary disease, unspecified COPD type (HCC); Chronic congestive heart failure, unspecified heart failure type (HCC)Start: 76-77-6540QtqiagfhsidPheyb ResidentStart: 05-47-1097Kffdg colonoscopyNo PCP None Comment on above:CCF;AppendectomyNo PCP NoneAppendectomyRyan Connie ColostomyRyan Connie Heart structure (body structure)Nabil Rosales Operative procedure on ankleNo PCP NonePercutaneous transluminal coronary angioplastyNo PCP NoneStructure of left lower leg (body structure)Nabil Rosales Plan of Treatment DateCare ActivityDetailAuthorStart: 00-06-6588Plcpkbayf for malignant neoplasm of colonMetroHealthStart: 69-66-9490Lshpr panelCholesterolMetroHealthStart: 09-11-2025 End: 31-35-2521Jsregpx encounter zohdddgap80/17/2026 2:00 PM EST Office Visit AMA [facility] [address] [place] [address] Amber Cuellar, [address] [place] [address] [facility] 230 Start: 47-82-0980Vjcguhjec vaccinationInfluenza Vaccine (#1)[facility] Start: 03-07-2025 End: 86-77-6333WMN W Auto Differential panel - BloodCBC and differential Lab Routine Impaired fasting blood sugar Primary hypertension Expected: 03/07/2025, Expires: 03/07/2026NONV HealthcareComment on above:Expected: 03/07/2025, Expires: 03/07/2026Start: 03-07-2025 End: 48-91-3841Vrtzvekjmfpnl metabolic 2000 panel - Serum or PlasmaComprehensive metabolic panel Lab Routine Impaired fasting blood sugar Primary hypertension Expected: 03/07/2025, Expires: 03/07/2026NONV HealthcareComment on above: Expected: 03/07/2025, Expires: 03/07/2026Start: 03-07-2025 End: 13-74-8379Dynlpypnoh A1c/Hemoglobin.total in BloodHemoglobin A1c Lab Routine Impaired fasting blood sugar Expected: 03/07/2025, Expires: 03/07/2026 [facility] HealthcareComment on above:Expected: 03/07/2025, Expires: 03/07/2026Start: 03-07-2025 End: 41-23-9421Bhtdn 1996 panel - Serum or PlasmaLipid panel Lab Routine Impaired fasting blood sugar Primary hypertension Expected: 03/07/2025, Expires: 03/07/2026NONV HealthcareComment on above:Expected: 03/07/2025, Expires: 03/07/2026Start: 03-07-2025 End: 15-77-2578Scjveymfgmvt/Creatinine panel in random UrineMicroalbumin / creatinine urine ratio Lab Routine Impaired fasting blood sugar Primary hypertensionExpected: 03/07/2025, Expires: 03/07/2026NONV HealthcareComment on above:Expected: 03/07/2025, Expires: 03/07/2026Start: 03-07-2025 End: 99-98-6017Ufjecutbugq [Units/volume] in Serum or PlasmaTSH Lab Routine Acquired hypothyroidism Expected: 03/07/2025, Expires: 03/07/2026[facility] Comment on above:Expected: 03/07/2025, Expires: 03/07/2026Start: 03-07-2025 End: 23-17-1059Phkvmvcgm (T4) free [Mass/volume] in Serum or PlasmaT4, free Lab Routine Acquired hypothyroidism Expected: 03/07/2025 (Approximate), Expires: 03/07/2026[facility] Work Phone: Comment on above:Expected: 03/07/2025 (Approximate), Expires: 03/07/2026Start: 03-07-2025 End: 12-39-8676Dmcalxy encounter bwpagjbwn74/13/2025 1:20 PM EDT Office Visit NOM[facility] [address] [place] [address] Amber Cuellar, DO [address] [place] [address] [facility] 230Comment on above:ArrivedStart: 07-17-2024 End: 07-54-1585Shdwbgv encounter gjavtogrg29/23/2024 11:00 AM EST Office Visit NOM[facility] [address] [place] [address] Amber Cuellar L, DO [address] [place] [address] N[facility] 230Start: 07-04-2024 End: 15-89-8359Rhiovjt encounter pjmaaeiqu34/10/2024 2:15 PM EST Office Visit NOMS PULM [address] [place] [address] Misti Pardo, DO [address] [place] [address] NOMS PULMStart: 04-26-2024 End: 03-64-2722Xpitsrp encounter procedureNOMS PULMComment on above:COPD with acute exacerbation ([facility])Start: 09-01-1287Qxyojrnvi vaccinationInfluenza Vaccine (#1)[facility] HealthcareStart: 52-14-6414CWB, Provider: Aaron Ocampo, Status: Pen, Time: 1:20 PMFUV, Provider: Aaron Ocampo, Status: Pen, Time: 1:20 PM[facility] 250 DO Work Phone: Start: 79-77-6355GIIEN-19 Vaccine ( season) COVID-19 Vaccine ( season)MetroHealthStart: 08-07-7330YDLEBK NUC, Provider: [place] HHVI NUCLEAR 01,[id number], Status: Pen, Time: 12:00 PMSTRESS NUC, Provider: [place] HHVI NUCLEAR 01,[id number], Status: Pen, Time: 12:00 PM [facility] 250 DO Work Phone: Start: 42-99-4045VQC, Provider: Aaron Ocampo, Status: Pen, Time: 2:00 PMFUV, Provider: Aaron Ocampo, Status: Pen, Time: 2:00 PMC[facility]oltWe[place] 250 DO Work Phone: Start: 08-17-2022 End: 48-65-7988Uleyfet encounter vhizrtbtf49/23/2023 Office Visit [facility] Trauma SurgeryStart: 51-75-6749Oydzp metabolic 2000 panel - Serum or PlasmaBasic Metabolic PanelMetroHealthStart: 72-92-7363Emlnwbgegk measurement Basic Metabolic PanelMetroHealthStart: 61-64-9007Zdqsegodb vaccinationInfluenza Vaccine (#1)MetroHealthStart: 00-91-2395WDAV, Provider: [place] HHVI NUCLEAR 01,[id number], Status: Pen, Time: 2:00 PMMUGA, Provider: [place] HHVI NUCLEAR 01,[id number], Status: Pen, Time: 2:00 PM[facility] 250 DO Work Phone: Start: 57-67-5024JEX, Provider: Aaron Ocampo, Status: Pen, Time: 3:30 PMFUV, Provider: Aaron Ocampo, Status: Pen, Time: 3:30 PMMP-[facility] 250 DO Work Phone: Start: 12-30-2021 End: 19-87-0863Jhjyiff encounter aawiydhyj95/07/2022 Office Visit Trauma Surgery [facility] Trauma SurgeryStart: 38-56-8187FPB, Provider: Aaron Ocampo, Status: Pen, Time: 8:00 AMFUV, Provider: Aaron Ocampo, Status: Pen, Time: 8:00 AMMP-[facility] 250 DO Work Phone: Start: 50-42-1485Qwjaywj stimulating hormone measurementTSHMetroHealthStart: 26-98-5677Otohnubkmuxt vaccinationMetroHealth Start: 84-41-6310Yaxkzphyjps of occult blood in single stool specimenFIT MetroHealthStart: 67-71-0623Fhikvnoz (RZV) Vaccine (1 of 2)Shingles (RZV) Vaccine (1 of 2)MetroHealthStart: 62-81-4038Jxupclsfw for malignant neoplasm of colonMetroHealthStart: 96-00-6774Ksrzu panelCholesterolMetroHealthStart: 42-99-2341Ubqdcuezj A (HAV) Vaccine (optional start 19+ years)Hepatitis A (HAV) Vaccine (optional start 19+ years)MetroHealthStart: 07-82-9991Stgtowvhy B vaccinationHepatitis B (HBV) Vaccine (1 of 3 - 19+ 3-dose series)[facility] Start: 13-53-2881Hguemmq + diphtheria + acellular pertussis vaccine (product) Tdap BoosterMetroHealthStart: 88-80-7357BJNKW-19 Vaccine (#1)COVID-19 Vaccine (#1)MetroHealthStart: 79-32-4782TRNWL-19 Vaccine (#1)COVID-19 Vaccine (#1) MetroHealthStart: 00-05-3321Iruvqetsk aortic aneurysm screeningPulmonary Function TestingMetroHealthStart: 88-79-5356Opwwyfth FractionEjection Fraction MetroHealthStart: 17-72-0933Kgzmpdhkz Function TestingPulmonary Function Testing MetroHealthStart: 15-39-3503Agogwpghr for malignant neoplasm of colonMetroFirelands Regional [facility] Immunizations Immunization DateImmunizationNotesCare MbtnpvkwYrmshxmj68-67-5265zqdkehnzy virus vaccine, unspecified formulationTimothy Maurepas DO Work Phone: NOMS Ydpaowgbqa97-29-5769oweqjyehz, high dose seasonal, preservative-freeReferring Provider [place] [address] DO Work Phone: [phone]batp virus vaccine, unspecified formulationTimothy Maurepas DO Work Phone: N[facility]S Glupwngiks60-48-1518OagdrzkKqeoynm Caridad TqntqKcedyl75-97-1365kyqibxudu, seasonal, injectableNo PCP [place] [address] DO Work Phone: [phone]p virus vaccine, unspecified formulationVanessa Wilson MD Work Phone: [phone]gdhHbxdpi55-58-5120xfnqaulgqdee polysaccharide vaccine, 23 valentNo PCP EgauIosckTppuzc53-94-4625Gofbtdtou, injectable, Madin [place] Canine Kidney, preservative free, quadrivalentNo PCP [place] [address] DO Work Phone: [phone]lnq virus vaccine, unspecified formulationReferring Provider [place] [address] DO Work Phone: [phone]wzdubj, injectable, quadrivalent, preservative freeNo PCP [facility]Gu[facility] Payers DatePayer CategoryPayerPolicy [id number] [id number] 2.16840.1.033421.3.57[id number] 2.840.1.486423.3.57[id number] 2.16840.1.612742.3.579.2.586837-72-8962Hpogrjz2788508 2.840.1.602662.3.579.2.63023-29-4641Vgnilmp2397385 2.840.1.797277.3.579.2.96558-77-8655Jfqwhsc5569175 2.840.1.897967.3.579.2.95119-61-9916Mfuifkj309907192 2.840.1.020551.3.579.2.84468-71-8221Tcjkmdj657626113 2.840.1.183414.3.579.2.29594-45-6848Ftqzjnh984422537 2.0.1.948531.3.579.2.98923-36-8592Yqwgpck52874854 2.840.1.796271.3.579.[id number] 2.840.1.475908.3.579.2.29969-39-6855Fawjwyv25088397 2.840.1.738635.3.579.2.95001-39-6935Hvqumos15893781 2.840.1.653346.3.579.2.36300-93-6977Skyrxra13653454 2.840.1.780812.3.579.2.25087-29-0881Bypoyfl38329846 2.840.1.575321.3.579.2.703402-69-1921Mdrozax1089422 2..1.602257.3.579.2.549236-14-3643Cduemmc42260566 2..1.548807.3.579.2.02294-78-6860Bqfwxfv14584287 2..1.630445.3.579.2.49648-35-9599Jmgspnu77619804 2..1.472426.3.579.[id number] 2..1.692754.3.579.2.727 [id number]-qnv 6827x385-5189-7231-kv4t-76q1sty66267WwcaoixV0833400569UhzqmuqNunflcyDCJU/HFA/FAP [id number] 50t5244s-7631-7b8z-g4nw-v038zi8m5294Wtxazhy39589592 2..1.975972.3.579.2.823Ofnwmau96689403 2..1.353393.3.579.2.531 Eilkbto72811176 2..1.593175.3.579.2.531 Social History DateTypeDetailFacilityStart: 01-14-2021 End: 70-21-1630Uxppzm consumes alcoholRarely consumes alcoholJulie Ville [address] DO Work Phone: Comment on above:QUIT 2017 1 PPD;quit 05/26/2021;one electronic device a week;Start: 01-14-2021 End: 63-93-6442Axcrehh smoking status ILISLight tobacco smokerMetroHealthHistory of tobacco useCigarette SmokerMetroHealthStart: 01-14-2021 End: 50-25-6876Shirlpq use and exposureSmokeless tobacco non-userMetroHealth Start: 55-61-3371Zcupwly CommentSmokes approx three cigarettes a month when pt is stressed MetroHealthStart: 24-95-7286Eon Assigned At BirthNot on file MetroHealthStart: 11-28-2020 End: 49-64-4977Qtuuhhr smoking status NHISEx-smoker (finding)[facility] Hospitaltart: 96-93-3044Wtl Assigned At [facility] Systemtart: 12-30-2021 End: 75-75-9239Vge Assigned At [facility] SystemHistory of tobacco useCurrent smokerNONV HealthcareStart: 04-25-2024 End: 53-49-4747Wtpnzuumf beverage intakeLifetime non-drinker (finding)[facility] HealthcareStart: 71-45-0725Tbydcmp Commentsoda/pop 1-2 cups/dayNOFreeman Health System Sexual OrientationAccess Hospital [facility] Start: 01-73-8500LjhDddw (finding)[facility] Hospitaltart: 08-18-4974AlnHucwJIQN Healthcare Medical Equipment Procedure CodeEquipment CodeEquipment Original TextEquipment IdentifierDatesCL STENT REAGAN 3.0 X 28FDAStart: 13-14-0650HH STENT REAGAN 3.0 X 28FDAStart: 39-00-1029NNA of Circumflex Unknown 08/01/24 Non Biological Left Circumflex Coronary ArteryFDAStart: 87-48-0827Mdtidfr on above:3.7t63BSM of Circumflex Unknown 08/01/24 Non Biological Left Circumflex Coronary ArteryFDAStart: 30-74-3330Fviqzap on above:3.9i10UBK of Circumflex Unknown 08/01/24 Non Biological Left Circumflex Coronary ArteryFDAStart: 83-43-7737Fkezonq on above:3.5x18 Functional Status ZrvpEhsljmmhiqSxxnetDnhkhmyb88-36-0760Klqwqeo Health Questionnaire 2 item (PHQ- 2) [Reported][facility] CenterEzcbziglhf01-14-6868Mnfapaxhvn StatusN/AFisher - [facility] HospitalBibwbj35-09-8759Ocuuvpjuvk StatusN/AFisher [facility]01-07-2025 Functional StatusNoFisher - [facility] HospitalCfzvkt14-61-8954Qngvfvvkod StatusN/A Aaron [facility] Clinical Notes 12-19-2021 to 03-07-2025 Note Date & PayeVxcrCxubngma11-65-4646 History of Present illness Narrative* Amber Cuellar, DO - 03/07/2025 1:20 PM EDT Images from the original note were not included. [facility] [place], [place] SUBJECTIVE: HPI: Eliceo Kenny is a 59 [...] but he recovered within two days. His printing assistant discontinued carvedilol following a stent placementand initiated [...] Acquired hypothyroidism Aphasia Coronary artery disease involving chicken ranch coronary artery of chicken ranch heart without angina pectoris Generalized anxiety disorder Hemiparesis of right dominant side as late effect of cerebrovascular disease (HCC) HFrEF (heart failure with reduced ejection fraction) ([facility]) Mucopurulent chronic bronchitis (HCC) Nicotine dependence with [...] thrombotic pulmonary embolism without acute cor pulmonale ([facility]) 09/07/2019 Smoking 01/17/2024 Syncope 01/17/2024 Tobacco user 06/27/2024 Vertigo 06/27/2024 Vitamin D deficiency 06/27/2024 documented in this encounterWestern Missouri Medical CenterZjiiccfmsx83-54-5604 NoteOperative Report Procedure Left heart catheterization procedure report DATE OF PROCEDURE: 08/01/2024 BUSINESS ADMINISTRATOR Blanco Lazcano MD [facility] INDICATION: New onset cardiomyopathy, history of coronary [...] patient was brought to the Adult Cardiac Typist and placed on the table. The planned puncture sites/areas were prepped and draped in usual sterile fashion and a safety time-out was performed. Moderate Sedation was given by the Cardiac Typist RN. RIGHT RADIAL ARTERY ACCESS: The puncture [...] was administered via peripheral IV by the component lab tech RN after the catheter crossed into the [...] <50cc CONTRAST ADMINISTERED: Please see Adult Cardiac Typist Log for further details FINDINGS: SELECTIVE CORONARY [...] note The patient was heparinized. A 6 Israeli JR4 guiding catheter was used. Right coronary artery was engaged. Intracoronary nitroglycerin was administered. Pressure wire was advanced to the proximal RCA,and after performance of advanced normalization, advanced to the distal RCA with no technical difficulties. iFR was assessed at 0.95, consistent with functionally nonsignificant (more content not included)...[facility] Campus Medical CenterComment on above:Result Comment: Electronically Signed By: Blanco Lazcano MD\.br\Date and Time Signed: 08/01/24 16:24 [id number] Evaluation + Plan noteExtracted from:Title: Procedure Note Heart & VascularAuthor:Blanco Lazcano MD DDate:08/01/24 Atrial fibrillation (I48.91: Unspecified atrial fibrillation) CAD (coronary artery disease) (I25.10: Atherosclerotic heart disease of chicken ranch coronary artery without angina pectoris) HLD (hyperlipidemia) [...] * Magnesium Level 08/02/24 * Troponin 08/02/24 [facility] 01-07-2025 Hospital Discharge instructions Patient Education 08/01/2024 11:18:38 CV - Cardiovascular PCI Discharge Instructions (CUSTOM) [place], [place] Cardiovascular PCI DISCHARGE INSTRUCTIONS Diet: Resume [...] hours post procedure: Actoplus MetGlucophageGlucophage XR GlucovanceAvandametFortamet Wbg-kyjykqoofAkmnraDqxq-lzkkykxmj GlumetzaJanumetMetaglip RiometGlycomet Minimal pain, soreness and/or discomfort is expected. If you are prescribed an aspirin and/or antiplatelet (such as Plavix, Brilinta or Effient) do NOT stop taking these medications for any reason without talking to your printing assistant Site Care: Do not remove dressing for [...] you are interested in smoking cessation, contact [facility] at [phone], ext. [phone]. In the event you are unable to reach your physician, please call Richa at [phone] and the powerplant operator will assist you. Seek Medicare Care [...] Up Care 07/12/2024 12:07:06 With:Blanco Lazcano Address: [address] [place] [phone] Business (1) When:08/24/2024 14:45:00 [facility] 11-28-2024 NoteEchocardiology Procedure Exam Date/Time Accession # Ordering Echo Transthoracic w/ 06/20/2024 15:19 EST [id number] Blanco Lazcano MD Contrast CPT code [id number] Reason for Exam (Echo Transthoracic w/ Contrast) I25.10;Cardiomyopathy Report [address] [address] Adult Echocardiogram Report Name: ELICEO KENNY Study Date: 06/20/2024 02:24 PM BP: 139/88 mmHg Patient Location: [facility] Ambulatory(s) [facility] HR: 87 : 1965 Gender: [...] Blanco Lazcano MD Transcribed by: DHAVAL Technologist: [facility]10-02-2024 History of Present illness Narrative* Misti Pardo, [...] MOUTH EVERY DAY FOR 90 DAYS HYDROcodone-acetaminophen ([place]) 5-325 MG tablet every 6 (six) hours. [...] by mouth at bedtime 30 tablet 5 Knexkkbfonj-Cglhzxywm-Cuzlly (Trelegy Ellipta) 200-62.5-25 MCG/ACT aerosol powder Inhale 1 puff Daily 1 each 5 No current facility-administered medications for this visit. Past Medical History: Diagnosis Date Abscess of sigmoid colon due to diverticulitis 01/17/2024 Angina pectoris ([facility]) Cardiogenic pulmonary edema [facility] [facility]) 01/17/2024 Colostomy present ([facility]) COPD (chronic obstructive pulmonary disease) ([facility]) H/O ileostomy Heart failure ([facility]) History of stomach ulcers Hyponatremia 01/17/2024 Single subsegmental thrombotic pulmonary embolism without acute cor pulmonale ([facility]) 09/07/2019 Smoking 01/17/2024 Syncope 01/17/2024 Past Surgical [...] study. Misti Pardo DO documented in this encounterWestern Missouri Medical [id number] History of Present illness Narrative* Amber Cuellar [...] for this visit: COPD with acute exacerbation ([facility]) - predniSONE (Deltasone) 20 MG tablet; Take [...] hypothyroidism (CMS/HCC) Aphasia Coronary artery disease involving chicken ranch coronary artery of chicken ranch heart without angina pectoris (CMS/HCC) Generalized anxiety [...] Smoking 01/17/2024 Syncope 01/17/2024 documented in this encounterWestern Missouri Medical [id number] Note* Addendum Note - John Collier MD - 01/02/2024 9:47 AM EDTAddended by: JOHN COLLIER on: 01/02/2024 09:47 AM Modules accepted: Orders [id number] Miscellaneous Notes* Addendum Note - John Collier MD - 01/02/2024 9:47 AM EDTAddended by: JOHN COLLIER on: 01/02/2024 09:47 AM Modules accepted: Orders * Addendum Note - John Collier MD - 12/29/2023 12:25 PM EDTAddended by: JOHN COLLIER on: 12/29/2023 12:25 PM Modules accepted: Orders documented in this [id number] Note* Addendum Note - John Collier MD - 12/29/2023 12:25 PM EDTAddended by: JOHN COLLIER on: 12/29/2023 12:25 PM Modules accepted: Orders [id number] Note* Addendum Note - John Collier MD - 12/29/2023 12:25 PM EDTAddended by: JOHN COLLIER on: 12/29/2023 12:25 PM Modules accepted: Orders [id number] Note* Addendum Note - John Collier MD - 12/29/2023 12:25 PM EDTAddended by: JOHN COLLIER on: 12/29/2023 12:25 PM Modules accepted: Orders [id number] Miscellaneous Notes* Addendum Note - John Collier MD - 12/29/2023 12:25 PM EDTAddended by: JOHN COLLIER on: 12/29/2023 12:25 PM Modules accepted: Orders documented in this [id number] NoteS: patient has been doing well since [...] from him. He has not seen his seed specialist or his printing assistant in some time, but he will set up an appointment for medical risk stratification and optimization prior to going to our next clinic visit. Plan: We will follow up on operative risk stratification from his printing assistant and his seed specialist We will schedule to see him in clinic in 1 month after these items are completed. We ask that he provide the fax number [phone] to his providers to send the pre op evaluation documents to [facility] History of Present illness Narrative* John [...] from him. He has not seen his seed specialist or his printing assistant in some time, but he will set up an appointment for medical risk stratification and optimization prior to going to our next clinic visit. Plan: We will follow up on operative risk stratification from his printing assistant and his seed specialist We will schedule to see him in clinic in 1 month after these items are completed. We ask that he provide the fax number [phone] to his providers to send the pre op evaluation documents to our office documented in this [id number] History of Present illness Narrative* John Collier [...] from him. He has not seen his seed specialist or his printing assistant in some time, but he will set up an appointment for medical risk stratification and optimization prior to going to our next clinic visit. Plan: We will follow up on operative risk stratification from his printing assistant and his seed specialist We will schedule to see him in clinic in 1 month after these items are completed. We ask that he provide the fax number [phone] to his providers to send the pre op evaluation documents to our office documented in this [id number] Instructions* Patient Instructions* Vanessa Wilson MD - 08/17/2022 2:28 PM EST Please send records from Dr. Ocampo to [facility] after appointment this upcoming Wednesday. Attn: Vanessa Wilson MD Trauma, Emergency General Surgery, Burn, and Surgical Critical Care Obtaining information to determine cardiac risk for Elective ileostomy reversal, possible exploratory laparotomy, possible bowel resection. Not an emergent or urgent surgery. documented in this [id number] History of Present illness Narrative* Vanessa Wilson MD - 08/17/2022 2:23 PM EST Images from the original note were not included. Trauma/Acute Care Surgery Clinic Note Eliceo Kenny is a 56 year old male with a history of hypothyroidism, [place], CHF, COPD, CAD (s/p PCI on ASA/Plavix), [...] healing well. He returned to ED from [place] for abdominal pain and drainage of midline [...] state he recently had an admission to [facility] about 3 weeks prior for possible stroke [...] reverse his ileostomy. He has seen his printing assistant and states he was told that having [...] procedure. I will need records from his printing assistant, especially since he is potentially recommended for either a pacemaker or defibrillator, and I would like records from his seed specialist (Dr. Sousa at [facility]) since he requires frequent use of his rescue inhaler and he often appears in the office audibly wheezing. He has not had any colonoscopy in any of the records I have visible at [facility], and he states if he ever had one, it would have been through [facility]. I would also like his recent records [...] need more information before I can adequately general counsel him on these risks and have an accurate discussion with him to determine if benefits outweigh substantial risks. I had him sign medical release forms to obtain records from [facility]. He states he has an appointment with cardiology this upcoming Wednesday, and I encouraged him to have them send his records during that visit. I provided the fax number and directions. Will plan for follow up on ce these have been obtained. Answered all question to the best of my ability. Vanessa Wilson MD documented in this [id number] Telephone encounter Note* Telephone Encounter - Corazon Khan - 08/06/2022 2:27 PM EST Pt was last seen in December 2021, pt would like to see Dr. Wilson for a follow- up he is experiencing some discomfort and would like the doctor to review things with him concerning his health 08/17/2022 at 2:45 pm [id number] Miscellaneous Notes* Telephone Encounter - Corazon Khan - 08/06/2022 2:27 PM EST Pt was last seen in December 2021, pt would like to see Dr. Wilson for a follow- up he is experiencing some discomfort and would like the doctor to review things with him concerning his health 08/17/2022 at 2:45 pm documented in this [id number] History of Present illness Narrative* Vanessa Wilson MD - 12/30/2021 4:19 PM EDT Images from the original note were not included. Trauma/Acute Care Surgery Clinic Note Eliceo Kenny is a 56 year old male with a history of hypothyroidism, [place], CHF, COPD, CAD (s/p PCI on ASA/Plavix), [...] healing well. He returned to ED from [place] for abdominal pain and drainage of midline [...] chest pain. He does state that his printing assistant wants to evaluate him for defibrillator placement. [...] Recommended he continue to follow with his printing assistant and seed specialist for management. I did also suggest that if he has any acute concerns about his abdomen that I recommend he try to go to the [facility] in [place] if he is able to get there instead of [facility] since myself and my partners rotate covering emergency general surgery call at [facility] 15/02. In the meantime, no [...] Risk protocol implemented: No documented in this [id number] Instructions* Patient Instructions* Vanessa Wilson MD - 12/30/2021 1:31 PM EDT If you are concerned about your ostomy (the bag) or about a new abscess or anything related to yourabdomen - come to the [facility] in [place] if you can, and ask for the [...] I will take over documented in this [id number] Telephone encounter Note* Telephone Encounter - Jina Mclean - 12/19/2021 1:58 PM EDT Tried to reach patient about appt on that we needed to move to 6/ and I got his voicemail that was not set up I will try back [id number] Miscellaneous Notes* Telephone Encounter - Jina Mclean - 12/19/2021 1:58 PM EDT Tried to reach patient about appt on that we needed to move to 6/ and I got his voicemail that was not set up I will try back documented in this encounterMetroHealthEvaluation + Plan note No data available for this section [facility] Future Appointments Appointment Date:08/24/2024 02:45:00 PM Scheduled Provider:Jaleesa SOLIS, Blanco Montenegro Location:[facility]Cardiology Clinic Appointment Type:Cardiology Follow Up ([facility]) [facility] + Plan note Future Appointments Appointment Date:08/24/2024 02:45:00 PM Scheduled Provider:Blanco Lazcano MD Location:[facility]Cardiology Clinic Appointment Type:Cardiology Follow Up (FT) Future Scheduled Tests Laboratory* B-Type Natriuretic Peptide 05/25/24 * Basic Metabolic Panel 05/25/24 * Lipid Panel 05/25/24 [facility] + Plan note Future Appointments Appointment Date:08/01/2024 09:00:00 AM Scheduled Provider: Location:[facility] Appointment Type:CV Heart Cath (FT) Appointment Date:08/24/2024 02:45:00 PM Scheduled Provider:Blanco Lazcano MD Location:[facility]Cardiology Clinic Appointment Type:Cardiology Follow Up (FT) Future Scheduled Tests Radiology* CV Cardiovascular 08/01/24 [facility] evaluation + Plan note Future Appointments Appointment Date:09/21/2024 02:00:00 PM Scheduled Provider:Blanco Lazcano MD Location:[facility]iology Clinic Appointment Type:Cardiology Follow Up ([facility]) [facility] evaluation + Plan note Future Appointments Appointment Date:02/07/2025 01:45:00 PM Scheduled Provider:Juan Francisco Johnson PA-C Location:[facility]Cardiology Clinic Appointment Type:Cardiology Follow Up ([facility]) [facility] note* Diagnosis Attention to ileostomy (HCC)- Primary Attention to ileostomy Body mass index (BMI) 35.0-35.9, adult documented in this encounter [facility]Evaluation noteNo assessment information availableSamaritan [facility] Work Phone: evaluation note* Diagnosis Attention [...] exercise and weight loss were reviewed with him.[facility] [employer] DO Work Phone: History of Present illness [...] weight loss were reviewed with him.[facility] 250 DO Work Phone: History of Present [...] exercise and weight loss were also advocated. [place] [address] DO Work Phone: History of Present illness [...] disease that could complicate his procedure. [facility] [facility] DO Work Phone: Hospital Discharge instructions No data available for this section [facility] No data available for this section [facility] Summary Purpose Family History No Family History [...] No May 28, 2018 2:14am Date ActivatedDate DahgilthauxTlnyjtcw87/10/2021 5:38 AM05/05/2021 1:46 PM QuestionAnswerCommentsDocumentation of decision [...] seen for a 5 month follow-up of. [facility] Discharge 06/14/2021[facility] is being seen for a 5 month follow-up of. [facility] Discharge 06/14/2021[facility] is being seen for [...] Chronic obstructive pulmonary disease, unspecified COPD type ([facility]/HCC) Misti Pardo, [address] [place] [address] Referral IDStatusReasonStart DateExpiration DateVisits RequestedVisits [id number] Additional Source Comments (unrecognized sect ion and content) No Status Records FoundNo Status Records FoundNo Status Records FoundNo Status Records FoundNo Status Records FoundNo Status Records FoundNo Status Records FoundNo Status Records FoundNo Status Records FoundNo Status Records FoundNo Status Records FoundNo Status Records FoundNo Status Records FoundNo Status Records Found INFORMATION SOURCE (unrecogn ized section and content) DATE CREATED AUTHOR 10/23/2018 [facility] DATE CREATED AUTHOR AUTHOR'S ORGANIZ ATION 05/16/2022 [facility] DATE CREATED AUTHOR AUTHOR'S ORGANIZ ATION 07/28/2022 [facility] DATE CREATED AUTHOR AUTHOR'S ORGANIZ ATION 2022 [facility] DATE CREATED AUTHOR AUTHOR'S ORGANIZ ATION 2022 [employer] DATE CREATED AUTHOR AUTHOR'S ORGANIZ ATION 10/13/2022 [facility] DATE CREATED AUTHOR AUTHOR'S ORGANIZ ATION 03/11/2024 [facility] DATE CREATED AUTHOR AUTHOR'S ORGANIZ ATION 07/25/2024 [facility] DATE CREATED AUTHOR AUTHOR'S ORGANIZ ATION 08/05/2024 [facility] DATE CREATED AUTHOR AUTHOR'S ORGANIZ ATION 08/26/2024 [facility] DATE CREATED AUTHOR AUTHOR'S ORGANIZ ATION 03/09/2025 [facility] DATE CREATED AUTHOR AUTHOR'S ORGANIZ ATION 05/26/2025 [facility] Care Teams (unrecognized sec tion and content) Team MemberRelationshipSpecialtyStart DateEnd [place] [address] PCP - GeneralFamily Medicine03/28/20 Cee Leo LISW [address] [address] Social WorkerSocial Work04/30/20 Manjula Lind MD, PhD [address] [place] [address] PhysicianTrauma Gkjukib20/1/21Team MemberRelationshipSpecialtyStart DateEnd Date Tawnya Pepper N [place] [id number] PCP - GeneralFamily Medicine03/28/[address] [address] Social WorkerSocial Work04/30/20 Manjula Lind MD, PhD [address] [place] [address] [place] [address] PhysicianTrauma Ahwklel93/1/21 Team Status: Inactive Member Role Status Dates Carmine Jackson , Attending Provider Active Medhat Baltazar , DO RESReferring ProviderActive Team Status: Inactive Member Role Status Dates Medhat Baltazar , RES Attending Provider Active Team Status: Inactive Member Role Status Dates Medhat Baltazar , RES Referring Provider Active Carolyn Dugan , MDAttbucky ProviderActiveTeam MemberRelationshipSpecialty Start DateEnd Date Tawnya [address] [place] [address] PCP - GeneralFamily Medicine03/28/[address] [address] Social WorkerSocial Work04/30/20 Manjula Lind MD, PhD [address] [place] [address] [place] [address] PhysicianTrauma Djksfmg13/1/21Team MemberRelationshipSpecialtyStart DateEnd Date Tawnya Pepper [address] [place] [address] PCP - GeneralFamily Medicine03/28/[address] [address] Social WorkerSocial Work04/30/20 Manjula Lind MD, PhD [address] [place] [address] [place] [address] PhysicianTrauma Zfyvcpt87/1/21Team MemberRelationshipSpecialtyStart DateEnd Date Tawnya Pepper [address] [place] [address] PCP - GeneralFamily Medicine03/28/[address] [address] Social WorkerSocial Work04/30/20 Manjula Lind MD, PhD [address] [place] [address] [place] [address] PhysicianTrauma Anmcenr81/1/21 Vanessa Wilson MD [address] [place] [address] [place] [address] PhysicianTrauma Surgery08/29/22Team MemberRelationshipSpecialtyStart DateEnd Date Tawnya Pepper [address] [place] [address] PCP - GeneralFamily Medicine03/28/[address] [address] Social WorkerSocial Work04/30/20 Manjula Lind MD, PhD [address] [place] [address] [place] [address] PhysicianTrauma Nunljyu56/1/21 Vanessa Wilson MD [address] [place] [address] [place] [address] PhysicianTrauma Surgery08/29/22Team MemberRelationshipSpecialtyStart DateEnd Date Maurepas, Amber L, DO [address] [place] [address] PCP - GeneralFamily Medicine12/01/22Team MemberRelationshipSpecialtyStart DateEnd Date Amber Cuellar, DO [address] [place] [address] PCP - Generalmi Medicine12/01/22Team MemberRelationshipSpecialtyStart DateEnd Date Amber Cuellar, DO [address] [place] [address] [facility]/01/22Team MemberRelationshipSpecialtyStart DateEnd Date Amber Cuellar, DO [address] [place] [address] PCP - Generalmi Medicine12/01/22 Amber Cuellar, DO [address] [place] [address] PCP - [facility]10/24/2510Team MemberRelationshipSpecialtyStart DateEnd Date Amber Cuellar, DO [address] [place] [address] PCP - Generalmily Medicine12/01/22 Amber Cuellar, DO [address] [place] [address] PCP - [facility]10/24/2510Team MemberRelationshipSpecialtyStart DateEnd Date Amber Cuellar, DO [address] [place] [address] PCP - GeneralFamily Medicine12/01/22 Polo Amber Patricia, DO [address] [place] [address] PCP - [facility]10/24/2510Team MemberRelationshipSpecialtyStart DateEnd Date Amber Cuellar Patricia [address] [place] [address] PCP - Generalmily Medicine12/01/22 Polo Amber Gomez, DO [address] [place] [address] PCP - [facility] Goals (unrecognized section and content) Goals [...] / Pulmonology Diagnoses COPD with acute exacerbation ([facility]) Procedures NM OFFICE/OUTPATIENT NEW HIGH MDM 60 MINUTES Amber Cuellar DO [address] [place] [address] Misti Pardo, DO [address] [place] [address] Referral IDStatusReasonStart DateExpiration DateVisits RequestedVisits [id number] Specialty Services Required [id number] RefillReasonCommentsAnnual Exam FOR RECORDS PERTAINING TO PATIENTS [...] BE BASED ON THE PRIMARY CLINICAL RECORDS. [facility] [employer] provides no warranty or guarantee of the accuracy or completeness of information in this document.
--- OUTSIDE RECORDS SUMMARY | 2025-06-11 06:59 | XMS_ITS | Clinical Summary ---
Author Organization [facility] Address [address] [place] [address] Care Team Providers Care Hotel Lobby Concierge Name Role Phone Yvette PepperAraceli Primary Care Provider [phone] Cee Leo Unavailable Manjula Lind MD, PhD Unavailable [phone] Vanessa Wilson MD Unavailable [phone] Source Comments The following information is NOT included in Care Everywhere downloads:Psychiatric notes, ECG results, Cardiac Rehab notes, Pulmonary Function notes, data from [employer] (includes but not limited toPregnancy data,audiograms, eye exams, pre-surgical evaluation notes, well-child exam data).[facility] Allergies Active AllergyReactionsCriticalityNoted DateCommentsMorphineAgitationMedium 11/19/2018PenicillinsDifficulty IdxwedjkePcnb19/27/2019 Medications MedicationSigDispense QuantityRefillsLast FilledStart DateEnd DateStatus Ondansetron [...] skin every morning. 10 Patch ctive Tiotropium [place] Monohydrate (Spiriva Respimat) 2.5 MCG/ACT AERS 2 puffsActive naloxone 4 mg/0.1 mL nasal liquid Use 1 Marydel in one nostril (alternate sides) as needed [...] ctive Active Problems ProblemNoted DateDiagnosed DateAbdominal wall upqytjk6605/04/2021ttention to uwfguijba14/08/2021 Overview (04/02/2021): Added automatically from request for surgery [id number] S/P colostomy depqfpcd14/11/2021COPD kuyrcfeftqss04/20/2021Lower GI bleed 03/25/2020Ischemic jgwkerycnliqge34/31/2020HFrEF (heart failure with reduced ejection fraction)03/25/2020Acquired oergylaprulkev82/31/2020Oral thrush 03/25/2020Essential qokmdkrnqjcb86/31/2020History of tobacco abuse03/25/2020 Ofeozhoohzrhec24/31/2020Coronary artery disease due to calcified coronary lesion 03/25/2020History of pulmonary embolus (PE)03/25/2020Class 1 obesity due to excess calories with body mass index (BMI) of 33.0 to 33.9 in adult03/25/2020 COPD (chronic obstructive pulmonary disease)02/06/20207564Jxizixb01/12/2020Abdominal wall fluid rfgcamsrakl05/24/2020Diverticulitis of large intestine with perforation without /28/2019Dizziness, nonspecificHypotension due to drugsQT prolongation Resolved Problems ProblemNoted DateDiagnosed DateResolved DateColostomy qwzzxofcm93/18/2021 12/03/2020 Overview (10/10/2020): Added automatically from request for surgery [id number] Colostomy toblhlzngqb12 Overview (06/14/2020): Added automatically from request for surgery [id number] Attention to yxysrzzok85 Immunizations ImmunizationAdministration DatesNext HaePrmvkeb14/25/2021Influenza, Injectable, MDCK, Quadrivalent, Preservative Free (BTJ=999)07/05/2019Influenza, injectable, quadrivalent, preservative free (HKF=654)07/24/2018Influenza, injectable, trivalent, preservative (KIN=733)08/26/2019Pneumococcal polysaccharide 23 Valent (PPSV23) (CVX=33)08/08/2019 Social History Tobacco UseTypesPacks/DayYears UsedDateSmoking Tobacco: Light SmokerCigarettes2 35Smokeless Tobacco: Never Tobacco Cessation:Counseling Given: Yes Comments:Smokes approx three cigarettes a month when pt is stressed Sex and Gender InformationValueDate RecordedSex Assigned at BirthNot on file Legal YydWjit9511/19/2018 10:10 PM EDTGender IdentityNot on fileSexual Orientation Not on file Last Filed Vital Signs Vital SignReadingTime TakenCommentsBlood Iwtuvwjf659/63012/30/2021 11:50 AM EDT Zckyr66756/07/2022 11:50 AM GTUGapfhhjtdjy33.1 ??C (98.7 ??F)09/02/2021 2:12 PM ESTRespiratory Ckud122712/30/2021 11:50 AM EDTOxygen Wupwxqixil85%07/30/2021 6:00 PM ESTInhaled Oxygen Concentration--Buqshq78.9 kg (218 lb)12/30/2021 11:50 AM OWTZmpher150.6 cm (5' 6 )12/30/2021 11:50 AM EDTBody Mass Index35.19012/30/2021 11:50 AM EDT Plan of Treatment Health MaintenanceDue DateLast RiyeIptsinrqVcpeddtuvoe26/25/1967Ejection Vohxhibc13/25/1967Tdap Uxmjxky5408/19/1984Hepatitis A (HAV) Vaccine (optional start 19+ years)1985Hepatitis B (HBV) Vaccine (1 of 3 - 19+ 3-dose series) 1985CRC Nibywkukm39/25/2012Cologuard (Stool DNA)2011FIT2011 Shingles (RZV) Vaccine (1 of 2)2016Pneumococcal Vaccine(s) (50+ yrs) (2 of 2 - PCV)/8492GLY98/31//Basic Metabolic Panel /11/2021, 05/05/2021, 05/03/2021, Additional history existsCOVID-19 Vaccine ( - 2024- season)2025Influenza Vaccine (#1)2025 08/26/2019, 07/05/2019, 07/24/20185561Sevynlfrywi72/28/53074909/22/2021HIV Test Rfyhwcxzv53/27/2019Hepatitis C VfubnaqfVzqdlwvcu59/20/2021 Procedures Procedure NamePriorityDate/TimeAssociated DiagnosisCommentsBASIC METABOLIC PANEL STAT07/30/2021 12:45 PM EST HEPATITIS C BHAPUZYNIDHM99/20/2021 2:08 PM EDT UGZBtmzetm87/31/2020 4:18 AM EDT HIV1 HIV2 AGAB IHQMHGJS07/27/2019 10:21 PM EDT from Last 3 Months or Most Recently Relevant to Health Maintenance Results * (ABNORMAL) BASIC METABOLIC PANEL (07/30/2021 12:45 PM EST)ComponentValueRef RangeTest MethodAnalysis TimePerformed AtPathologist RnjiyqjzpEskrqbx51197 - 110 mg/dL07/30/2021 2:49 PM ESTS PATHOLOGY VBTTWCEEMOYompnj971999 - 148 mmol/L07/30/2021 2:49 PM ESTS PATHOLOGY LABORATORYPotassium3.83.3 - 5.3 mmol/L07/30/2021 2:49 PM ESTS PATHOLOGY LABORATORYCarbon Gxmldeb2129 - 30 mmol/L07/30/2021 2:49 PM ESTS PATHOLOGY PRDNDHQIMJHolunehc69398 - 111 mmol/L 07/30/2021 2:49 PM ESTS PATHOLOGY LABORATORYBlood Urea Nitrogen5(L)8 - 22 mg/dL07/30/2021 2:49 PM ESTS PATHOLOGY LABORATORYCreatinine0.69(L)0.80 - 1.30 mg/dL07/30/2021 2:49 PM ESTS PATHOLOGY LABORATORYCalcium8.78.4 - 10.4 mg/dL07/30/2021 2:49 PM ESTS PATHOLOGY LABORATORYAnion Eqk8068 - 20 07/30/2021 2:49 PM ESTS PATHOLOGY LABORATORYEstimated GFR (CKD-EPI)108>=60 mL/min/1.62jva9207/30/2021 2:49 PM ESTS PATHOLOGY LABORATORYSpecimen (Source) Anatomical Location / LateralityCollection Method / VolumeCollection Time Received TimeBloodBLOOD SPECIMEN / Xeusggh8607/30/2021 12:45 PM EST07/30/2021 2:05 PM EST Narrative Authorizing ProviderResult TypeResult StatusLisa Amanda MD98 GENERAL LAB Final ResultPerforming OrganizationAddChildren's Hospital of Philadelphiaty/State/ZIP CodePhone Number [facility] [address] [place] [phone] * HEPATITIS C ANTIBODY (11/12/2020 2:08 PM EDT)ComponentValueRef RangeTest MethodAnalysis TimePerformed AtPathologist SignatureHepatitis C AbNonreactive Wwibzznriia76/20/2021 7:31 PM EDNOL[facility] PATHOLOGY LABORATORYSpecimen (Source) Anatomical Location / LateralityCollection Method / VolumeCollection Time Received TimeBloodBLOOD SPECIMEN / Gncknql7711/12/2020 2:08 PM EDT11/12/2020 6:02 PM EDT Narrative Authorizing ProviderResult TypeResult StatusElikathie Zuniga MDEC HIV/HEP/SYPH TESTINGFinal ResultPerforming OrganizationAddressty/State/ZIP CodePhone Number [facility] [address] [place] [phone] * (ABNORMAL) TSH (03/25/2020 4:18 AM EDT)ComponentValueRef RangeTest Method Analysis TimePerformed AtPathologist SignatureTSH8.055(H)0.450 - 5.330 uIU/mL 03/25/2020 7:45 AM EDNOLAND [facility] PATHOLOGY LABORATORYSpecimen (Source)Anatomical Location / LateralityCollection Method / VolumeCollection TimeReceived Time BloodBLOOD SPECIMEN / Kociffi6803/25/2020 4:18 AM EDT03/25/2020 7:02 AM EDT Narrative Authorizing ProviderResult TypeResult StatusTarik Atassi DO98 GENERAL LABFinal ResultPerforming OrganizationAddressty/State/ZIP CodePhone Number [facility] [address] [place] [phone] * HIV1 HIV2 AGAB SCRN (11/19/2018 10:21 PM EDT)ComponentValueRef RangeTest MethodAnalysis TimePerformed AtPathologist SignatureHIV Ag-Ab Screen Nli-FgrsvpkzJce-Djruxgjj09/ 1:21 AM [facility] PATHOLOGY LABORATORYComment: No HIV Infection. HIV - 1 GjHzg-ErbnzhskLwo-Nlnpevpd17/28/2019 1:21 AM [facility] HIV-1 p24 WixuhysCly-BotkiowpYav-Lufwnooa97/28/2019 1:21 AM [facility] PATHOLOGY LABORATORYHIV-2 HkQpb-VfmqwdiiDbx-Vtbismnx42/28/2019 1:21 AM [facility] PATHOLOGY LABORATORYSpecimen (Source)Anatomical Location / LateralityCollection Method / VolumeCollection TimeReceived TimeBloodBLOOD SPECIMEN / Tmxtpqd5611/19/2018 10:21 PM EDT11/19/2018 11:59 PM EDT Narrative [facility] - 11/20/2018 1:21 AM EDT HIV Information: ??[place] Rev. code 3701.243(E): This information has been [...] BETHEA HIV/HEP/SYPH TESTINGFinal ResultPerforming OrganizationAddressCity/State/ZIP CodePhone Number [facility] [address] [place] [address] from Last 3 Months or Most Recently Relevant to Health Maintenance Insurance Advance Directives * Full Code (Latest Code Status on File) Date ActivatedDate EkbyuffrztpZuxlevop02/10/2021 5:38 AM05/05/2021 1:46 PM QuestionAnswerCommentsDocumentation of decision [...] MemberRelationshipSpecialtyStart DateEnd Date Yvette Pepper [address] [place] [address] PCP - GeneralFamily Medicine03/28/20 Cee Leo LISW [address] [address] Social WorkerSocial Work04/30/20 Manjula Lind MD, PhD [address] [facility] [place] [address] PhysicianTrauma Ufqzwyp02/1/21 Vanessa Wilson MD [address] [facility] [place] [address] PhysicianTrauma Surgery08/29/22
--- OUTSIDE RECORDS SUMMARY | 2025-06-11 06:59 | XMS_ITS | Patient Health Record ---
Author Organization [facility] es Address [address] [place] [address] Care Team Providers Care Obiee Obia Solution Architect Name Role Phone sonyMarie Prado Primary Care Provider [phone] Allergies Allergen (clinical drug ingredient) Drug/Non Drug [...] in the past year?Less than monthly (1 point)Ynhtgm4OawcpavwvxndvxPfevukpeQzzxqvwki affecting healthPoor/Risky Behaviors:Physical Activity-Communication Barrier:Language Barrier?:No Problems Problem Type SNOMED Code ICD Code Onset Dates Problem Status W/U Status Risk Notes Problem Generalized anxiety disorder (76854673) Generalized anxiety disorder (F41.1) ActiveconfirmedProblemVitamin D deficiency (54347933)Vitamin D deficiency (E55.9)ActiveconfirmedProblemAnxiety (97157587)Anxiety (F41.9)Activeconfirmed ProblemDiverticulitis (71447103)Diverticulitis (K57.92)ActiveconfirmedProblem Essential hypertension (71900891)Essential hypertension (I10)Activeconfirmed ProblemVertigo (364862846)Vertigo (R42)ActiveconfirmedProblemObese class I (finding) (036737965039273)Obesity (BMI 30.0-34.9) (E66.9)ActiveconfirmedProblem Obstructive sleep apnea (08572338)Obstructive sleep apnea (G47.33)Active confirmedProblemCOPD - Chronic obstructive pulmonary disease (92538548)Chronic obstructive pulmonary disease, unspecified COPD type (J44.9)Activeconfirmed ProblemAmnesia (29648002)Memory change (R41.3)ActiveconfirmedProblem Hypothyroidism (26647642)Hypothyroidism, unspecified type (E03.9)Activeconfirmed ProblemInsomnia (983414488)Insomnia, unspecified type (G47.00)Activeconfirmed ProblemAcute non-ST segment elevation myocardial infarction (963555801)NSTEMI (non-ST elevated myocardial infarction) (I21.4)ActiveconfirmedProblemBilateral carpal tunnel syndrome (71042646214592627)Bilateral carpal tunnel syndrome (G56.03)ActiveconfirmedProblemAtherosclerotic heart disease of [place] coronary artery without angina pectoris (750534282979089)Coronary artery disease involving [place] coronary artery of [place] heart without angina pectoris (I2 5.10)ActiveconfirmedProblemChronic combined systolic and diastolic heart failure (178834960005025)Chronic combined systolic and diastolic congestive heart failure (I50.42)ActiveconfirmedProblemOld myocardial infarction (4398503)Hx of non-ST elevation myocardial infarction (NSTEMI) (I25.2)Activeconfirmed Plan Of Treatment No Information Insurance Providers Payer Name Payer Address Payer Phone Subscriber Number Group Number Insured Name Patient Relationship to Insured Coverage Start Date Coverage End Date [employer]-t ermed [address] [place] [address] [id number] BO KENNY Self - patient is the insured 8 3 zMEDICAID ABD after [employer]-t ermed [address] [place] [address] [id number] BO KENNY Self - patient is the [...] Hospitalization History Reason Date(Month/Year) [facility]breathing 09/2020 [facility]- Vertigo 09-01-2020 Bronchitis 06/2019 diverticulitis x2
--- OUTSIDE RECORDS SUMMARY | 2025-06-11 06:59 | XMS_ITS | Clinical Summary ---
Author Organization [facility] Address [address] [place] [address] Phone Care Team Providers Care Sterile Processing Technician Name Role Phone Unavailable Primary Care Provider Unavailabl e Social History Tobacco UseTypesPacks/DayYears UsedDateSmoking Tobacco: Never AssessedSex and Gender InformationValueDate RecordedSex Assigned at BirthNot on fileLegal Sex Male06/20/2022 6:29 AM ESTGender IdentityNot on fileSexual OrientationNot on file Last Filed Vital Signs Vital SignReadingTime TakenCommentsBlood Wvbleijx199/8608/19/2022 2:09 PM EST Mkvzb349808/19/2022 2:09 PM ESTTemperature--Respiratory Rate--Oxygen Saturation-- Inhaled Oxygen Concentration--Okwsny64.5 kg (215 lb)2022 2:09 PM ESTHeight 167.6 cm (5' 6 )2022 2:09 PM ESTBody Mass Index34.7008/19/2022 2:09 PM EST Plan of Treatment Health MaintenanceDue DateLast DoneCommentsCT Qknmwfizoemc95/25/1967Colonoscopy 1966Colorectal Cancer Yiatvmqrw71/25/1967FIT-DNA (Cologuard)1966FIT 1966HIV Mxfqnmlrc38/25/1967Lipid Panel1966 5168Sqkkpebcvzwpe03/25/1967 Yearly Adult Oqimasiq20/25/1967MMR Vaccines (1 of 1 - Standard series)1967 Diabetes Pqaloojvw31/25/1985Hepatitis C Nrdqprdqf76/25/1985Hepatitis B Vaccines (1 of 3 - 19+ 3-dose series)1985DTaP/Tdap/Td Vaccines (1 - Tdap)1988 PSA Prostate Cancer Poumbppin93/25/2017Pneumococcal Vaccine (1 of 1 - PCV) 2016Zoster [...] to complete this topic Procedures Procedure NamePriorityDate/TimeAssociated IdpfrtfdeGovdcacqQTHHjurvui46/16/2021 9:52 AM EDT from Last 3 Months or Most Recently Relevant to Health Maintenance Results * (ABNORMAL) Thyroid Stimulating Hormone (01/08/2021 9:52 AM EDT)ComponentValue Ref RangeTest MethodAnalysis TimePerformed AtPathologist SignatureTSH8.79(H) 0.44 - 3.98 [facility] LABComment: TSH testing is performed using different testing methodology at [facility] than at other [facility]. Direct result comparisons should only be made within the same method. Specimen (Source)Anatomical Location / LateralityCollection Method / Volume Collection TimeReceived Time01/08/2021 9:52 AM EDT01/08/2021 5:49 PM EDT Narrative Authorizing ProviderResult TypeResult StatusWicarlos Ocampo MDLAB BLOOD ORDERABLESFinal ResultPerforming OrganizationAddressCity/State/ZIP CodePhone Number [facility] from Last 3 Months or Most Recently Relevant to Health Maintenance Insurance
--- NOTE | 2025-06-11 08:00 | CM.NOTE ---
Rounds made with Dr. Martinez, discussed plan of care with pt. Pt is inpatient status, no discharge today. Pt does have home oxygen, pt states he wears oxygen as needed. Continue treatement as ordered.
--- NOTE | 2025-06-11 08:22 | PM.PN ---
Progress Note: Subjective Subjective Interval history: Follow-up on the patient. Patient is feeling fairly well. No chest pain or palpitation. Persistent cough. No abdominal pain Exam Narrative Exam Narrative: [pt is awake and alert. oriented to place, time and person, coughing and mildly tachypneic. HEENT: [place] conjunctiva and NL buccal mucosa Neck: Supple, no tenderness Endocrine: No Thyromegaly. Vascular: No JVD or carotid bruit. Lymphatic: No cervical lymphadenopathy. Chest: Bilateral wheezing or rhonchi Heart RRR, no extra sound or murmur. Abd: Soft, multiple surgical scars noted. Colostomy bag is noted in the lower abdomen on the right side. No tenderness. LE: No cyanosis or clubbing, no varices or edema. Neuro: A A O. Nl speech, comprehension and attention. Nl and symetrical motor and tone examination through out. []] Constitutional Vital Signs, click to edit/add: Last Vital Signs Temp 98.2 F 06/11/25 04:00 Pulse 86 06/11/25 04:58 Resp 24 H 06/11/25 04:58 BP 122/84 06/11/25 04:00 Pulse Ox 93 L 06/11/25 04:58 O2 Del Method Room Air 06/11/25 04:58 Progress Note: Objective Labs Labs: Short CBC 06/10/25 06/11/25 Range/Units 15:20 05:10 WBC 13.0 H 7.4 (4.0-11.0) 10^3/uL Hgb 15.8 13.6 L (14.0-18.0) g/dL Hct 46.3 39.8 L (42.0-54.0) % Plt Count 212 191 (150-450) 10^3/uL BMP 06/10/25 06/11/25 15:20 05:10 Sodium 139 136 Potassium 4.1 4.2 Chloride 102 103 Carbon Dioxide 21.2 21.1 BUN 32.0 H 31.0 H Creatinine 3.54 H 1.88 H Glucose 135 H 191 H Calcium 9.6 9.2 Progress Note: A&P Assessment and Plan (1) Acute kidney injury: (2) Dehydration: (3) Acute bacterial bronchitis: (4) COPD with acute exacerbation: (5) Intractable vomiting: (6) Atrial fibrillation with rapid ventricular response: (7) Ileostomy in place: (8) ASHD (arteriosclerotic heart disease): (9) Heart failure with preserved ejection fraction (HFpEF): Plan Acute COPD exacerbation Acute bronchitis Continue Solu-Medrol, albuterol, Atrovent and Pulmicort Continue Zithromax AANSTASIYA. Responding to IV fluid infusion. Likely caused by hemodynamic shift and/or volume loss while patient is taking GRECIA inhibitor, furosemide and spironolactone Offending medications are on hold. Ultrasound does not show any obstructive uropathy. Continue IV fluid infusion Requested UA to make sure he does not have any RBC or protein to suggest severe abdominal nephritis Tobacco addiction Patient has been a smoker for 30 years. He is cutting down significantly. I continue to encourage him to cut down further until he quit. Increased risk for lung cancer due to smoking history. Recommend yearly low-dose radiation CAT scan of the chest to screen for lung cancer. Last CAT scan was done on record is in May 2024. I recommend patient to have another CAT scan maybe after the holiday in the outpatient setting. CAD Continue dual antiplatelets treatment. Reported history of A-fib and A-fib on presentation Patient is on beta-navdeep Patient is not on anticoagulation. ITT0RK2-WXUp score is 1. (Screening for diabetes ) Consideration to reduce beta-navdeep due to suspected on underlying COPD and change amlodipine to Cardizem for rate control Hyperglycemia Likely steroid-induced and the fact the patient has been on D5. Change D5 to normal saline Check A1c. Last A1c was 5.4 Hypothyroidism Continue Synthroid Check TSH Colostomy status due to previous perforated diverticulitis. Continue colostomy care Suspect underlying obstructive sleep apnea Patient stated that he is in the process of having been tested.
[2025-06-11] MEDS: ASPIRIN 81 MG TABLET.DR PO (08:54)
[2025-06-11] MEDS: HEPARIN SODIUM (PORCINE) 5,000 UNIT/ML VIAL 5000 UNIT SUBQ ×2 (08:54→21:05)
[2025-06-11] MEDS: CLOPIDOGREL BISULFATE 75 MG TABLET PO (08:54)
--- NOTE | 2025-06-11 08:56 | ECG_ITS ---
[facility] Test Date: 2025-06-11 Pat Name: BO KENNY Department: Room: 2181 Gender: Male Enterprise Analyst: : 1965 Requested By: [id number] Order Number: [id number] Reading MD: KIRSTIE TAPIA M.D. Measurements Intervals [place] Rate: 88 P: 61 SC: 176 QRS: -10 QRSD: 150 T: 38 QT: 386 QTc: 468 Interpretive Statements SINUS RHYTHM INTRAVENTRICULAR CONDUCTION DELAY [130+ ms QRS DURATION] Abnormal ECG Compared to ECG 06/10/2025 16:18:26 Left-axis deviation no longer present Compared to ECG of 06/10/2025 16:18, No significant changes Electronically Signed On 06-11-2025 18:59:55 EST by KIRSTIE TAPIA M.D.
[2025-06-11] MEDS: ALBUTEROL SULFATE 2.5 MG/3 ML VIAL NEB IH (10:11)
[2025-06-11] MEDS: BUDESONIDE 0.5 MG/2 ML AMPULE NEB IH ×2 (10:11→20:20)
[2025-06-11] MEDS: METOPROLOL SUCCINATE 100 MG TAB.ER.24H PO (10:22)
[2025-06-11] MEDS: 0.9 % SODIUM CHLORIDE 1,000 ML 80 ML IV ×2 (10:22→22:48)
[2025-06-11] MEDS: METHYLPREDNISOLONE SOD SUCC PF 40 MG/ML VIAL IVP ×2 (10:23→21:05)
[2025-06-11 11:05] LABS: Glucose Urine UA NEGATIVE (NEGATIVE)
[2025-06-11 11:16] LABS: Cast Seen? NONE SEEN #/LPF (NONE SEEN); Crystals Seen? Seen #/HPF (None Seen)
--- NOTE | 2025-06-11 11:52 | CM.NOTE ---
Addendum entered by Rose Schultz 06/11/25 12:01: Pt also verbalizes he has home oxygen and wears as needed. Pt states he wears during his COPD flares and at night. Pt not requiring oxygen at this time. Pt thinks oxygen is from [facility]. Updated SW. Original Note: CM in to speak with pt regarding COPD. Pt is active with a wellness educator Dr. Pardo. Pt states he does see her every year. Discussed with pt about sleep study, pt states he was scheduled for sleep study but canceled appt. Pt states he has other things in life going on at this time and wishes not to schedule. Pt states he was told it would cost 250.00 out of pocket and feels financially at this time he would rather wait to schedule. Discussed with pt risks of untreated sleep apnea. Pt verbalizes understanding and is not interested at this time.
--- NOTE | 2025-06-11 12:02 | SWNOTE1 ---
SW spoke with case management and pt has home oxygen and only wears it PRN, at night. From a previous stay SW had documented that pt had home oxygen at 4 liters continuous from [facility]. SW called [facility] and they did confirm he has home oxygen, but SW had to leave a message for respiratory therapist to confirm the most recent prescription, waiting for call back.
--- NOTE | 2025-06-11 12:52 | SWNOTE1 ---
DALE received a call back from Morgan at [facility]. Morgan confirmed pt has home oxygen from them and the most recent prescription was from August of 2024 and for 4 liters continuous.
[2025-06-11] MEDS: AZITHROMYCIN 500 MG in 0.9 % SODIUM CHLORIDE 250 ML 250 MG IV (21:05)
[2025-06-11] MEDS: TRAZODONE HCL 50 MG TABLET PO (21:06)
[2025-06-11] MEDS: ATORVASTATIN CALCIUM 40 MG TABLET 80 MG PO (21:06)
[2025-06-12 03:43] VITALS: BP 100/64; PULSE 77; TEMP 36.4; O2SAT 93
[2025-06-12 05:46] LABS: Anion Gap 12.8; Blood Urea Nitrogen 23.0 mg/dL (7.0-18.0); Calcium 9.0 mg/dL (8.5-10.1); Carbon Dioxide 22.6 mmol/L (21.0-32.0); Chloride 108 mmol/L (98-107); Estimated GFR (African America >60 (>=60 mL/min/1.73m^2); Estimated GFR (Non-African Ame >60 (>=60 mL/min/1.73m^2); Glucose 176 mg/dL (74-106); Potassium 5.4 mmol/L (3.5-5.1); Sodium 138 mmol/L (136-145)
[2025-06-12] MEDS: LEVOTHYROXINE SODIUM 100 MCG TABLET 200 MCG PO (06:18)
[2025-06-12] MEDS: PROCHLORPERAZINE 10 MG/2 ML VIAL IV (06:19)
[2025-06-12] MEDS: ACETAMINOPHEN 325 MG TABLET 650 MG PO (06:19)
[2025-06-12 07:50] VITALS: BP 117/77; PULSE 81; TEMP 36.3; O2SAT 95
--- NOTE | 2025-06-12 08:00 | CM.NOTE ---
Rounds made with Dr. Martinez, pt will discharge to home today. Pt will f/u with Dr. Cuellar and Dr. Osobrn. Pt has home oxygen, no other discharge needs identified at this time.
[2025-06-12] MEDS: HEPARIN SODIUM (PORCINE) 5,000 UNIT/ML VIAL 5000 UNIT SUBQ (08:09)
[2025-06-12] MEDS: ASPIRIN 81 MG TABLET.DR PO (08:09)
[2025-06-12] MEDS: CLOPIDOGREL BISULFATE 75 MG TABLET PO (08:09)
[2025-06-12] MEDS: METOPROLOL SUCCINATE 100 MG TAB.ER.24H PO (08:09)
[2025-06-12] MEDS: METHYLPREDNISOLONE SOD SUCC PF 40 MG/ML VIAL IVP (08:09)
[2025-06-12 09:10] VITALS: PULSE 64; O2SAT 96
[2025-06-12] MEDS: IPRATROPIUM/ALBUTEROL SULFATE 3 ML AMPUL.NEB IH (09:10)
[2025-06-12] MEDS: BUDESONIDE 0.5 MG/2 ML AMPULE NEB IH (09:10)
--- NOTE | 2025-06-12 12:13 | PM.DS1 ---
DS: Providers Provider Date of admission: 06/10/25 17:40 Primary care physician: [facility] DS: Diagnosis Discharge Diagnosis (1) Acute kidney injury: (2) Dehydration: (3) Acute bacterial bronchitis: (4) COPD with acute exacerbation: (5) Intractable vomiting: (6) Atrial fibrillation with rapid ventricular response: (7) Ileostomy in place: (8) ASHD (arteriosclerotic heart disease): (9) Heart failure with preserved ejection fraction (HFpEF): Plan As listed above, below and others other than that listed DS: Summary Hospital Course Hospital Course: Mr. Mcconnell is a 59-year-old gentleman who came in with weakness, fatigue, cough and congestion. He was found to have the following: Acute COPD exacerbation Acute bronchitis Continue Solu-Medrol, albuterol, Atrovent and Pulmicort Continue Zithromax Significant improvement of bilateral wheezing or rhonchi. Chest x-ray is negative. Patient will be discharged home on a prednisone and doxycycline. Patient will continue to take Symbicort and Spiriva as well as as needed albuterol. Sputum culture is pending. ANASTASIYA. Responding to IV fluid infusion. Likely caused by hemodynamic shift and/or volume loss while patient is taking GRECIA inhibitor, furosemide and spironolactone Offending medications are on hold. Ultrasound does not show any obstructive uropathy. Continue IV fluid infusion UA does not show RBC or protein. Kidney function is back to normal. Patient will be discharged home off lisinopril and spironolactone as well as of amlodipine due to borderline low blood pressure. Tobacco addiction Patient has been a smoker for 30 years. He is cutting down significantly. I continue to encourage him to cut down further until he quit. Increased risk for lung cancer due to smoking history. Recommend yearly low-dose radiation CAT scan of the chest to screen for lung cancer. Last CAT scan was done on record is in May 2024. I recommend patient to have another CAT scan maybe after the holiday in the outpatient setting. Patient is to follow-up with Dr. Pardo. CAD Continue dual antiplatelets treatment. Continue beta-navdeep. Dose reduced from 150 down to 100 mg due to soft blood pressure and underlying COPD. Hypertension Patient was hypotensive on admission contributing to his ANASTASIYA. Patient was taken off amlodipine, lisinopril and spironolactone. His blood pressure continues to be on the low side. These medications would not be resumed. Patient will stay on Toprol 100 mg daily. As he is recovering in the outpatient setting, his blood pressure may start to rise up. His primary care doctor would need to reintroduce additional blood pressure medications as deemed to be appropriate in the outpatient setting. Reported history of A-fib and A-fib on presentation I reviewed the rhythm strips. I did not see any A-fib. Sinus, PACs. Patient is on beta-navdeep. Hyperglycemia Likely steroid-induced and the fact the patient has been on D5. Change D5 to normal saline Check A1c. Last A1c was 5.4 Hypothyroidism Continue Synthroid Check TSH in the outpatient setting. Colostomy status due to previous perforated diverticulitis. Continue colostomy care Suspect underlying obstructive sleep apnea Patient stated that he is in the process of having been tested. Patient is to follow-up with Dr. Pardo to arrange for that. Patient has multiple complex medical issues as listed above and others that are not listed. All appear to be stable. I do not have any clear or strong clinical justification to extend inpatient hospitalization. Patient however will require close and frequent monitoring as well as additional work-up, investigation and therapeutic intervention that could take place from this point on post discharge. That is to prevent relapse, decompensation, rehospitalization and other medical implications.. Discharge medications as listed are not final or set in stone. Primary care doctor and other out patient providers will need to titrate and adjust medications as soon as the first post discharge visit based on clinical progression, vitals signs, volume status and other related organs function. I instructed patient to ask her primary care doctor to obtain [facility] record entirely to address abnormalities seen on labs and imaging that I have and have not addressed during this hospitalization, follow-up on pending blood work, imaging and pathology is if available and to follow-up on needed medical care in the outpatient setting. Time Spent with Patient Time attestation: Total time spent providing and/or coordinating discharge services: Time spent: greater than 30 minutes Exam Narrative Exam Narrative: Patient is doing well. Complete resolution of bilateral wheezing. Heart is regular. Abdomen soft, nontender. Colostomy is noted. Constitutional Vital Signs, click to edit/add: Last Vital Signs Temp 97.4 F L 06/12/25 07:50 Pulse 64 06/12/25 09:10 Resp 20 06/12/25 09:10 BP 117/77 06/12/25 07:50 Pulse Ox 96 06/12/25 09:10 O2 Del Method Room Air 06/12/25 09:10 DS: Data Data Completed and Pending Labs on day of discharge: Labs from last 24 hours 06/12/25 05:15 Sodium 138 Potassium 5.4 H Chloride 108 H Carbon Dioxide 22.6 Anion Gap 12.8 BUN 23.0 H Creatinine 1.01 Est GFR ( Amer) >60 Est GFR (Non-Af Amer) >60 BUN/Creatinine Ratio 22.8 Glucose 176 H Calcium 9.0 Discharge Plan Discharge Disposition: Home, Self-Care Discharge Medications: New prednisone 10 mg tablet 10 mg PO .as directed Qty: 15 0RF Rx Instructions: Take 1 tablet twice a day for 5 days then 1 tablet daily for 5 days doxycycline monohydrate 100 mg tablet 100 mg PO BID 5 Days Qty: 10 0RF Continued levothyroxine [Euthyrox] 200 mcg tablet 200 mcg PO DAILY clopidogrel 75 mg tablet 75 mg PO DAILY aspirin 81 mg capsule 81 mg PO DAILY atorvastatin 80 mg tablet 80 mg PO DAILY albuterol sulfate 90 mcg/actuation aerosol powdr breath activated 2 inh inhalation Q4H PRN (Reason: shortness of breath) budesonide-formoterol [Symbicort] 160-4.5 mcg/actuation HFA aerosol inhaler 2 inh INHALATION Q12H trazodone 50 mg tablet 50 mg PO .QHS ezetimibe 10 mg tablet 10 mg PO QDAY Spiriva Respimat 2.5 mcg/actuation mist 2 puff INHALATION Q24H Changed metoprolol succinate 100 mg tablet extended release 24 hr 100 mg PO QDAY Qty: 0 0RF Discontinued spironolactone [Aldactone] 25 mg tablet 25 mg PO QDAY lisinopril 2.5 mg tablet 2.5 mg PO DAILY furosemide 40 mg tablet 40 mg PO DAILY amlodipine 5 mg tablet 5 mg PO QDAY Print Language: Slovenian Activity Restrictions/Additional Instructions: I may not have addressed or treated all of your medical illnesses or the abnormal blood work or imaging studies during this hospitalization. Please ask your primary care provider to obtain [facility] records entirely to follow up on all of the abnormal physical, laboratory, and imaging findings that I have not addressed. Please return back to the emergency room or seek medical attention if your symptoms worsen or return. Discharging you from [facility] does not mean that your medical care ends here and now. You may still need additional monitoring, work up, investigation, and treatment plan to be handled from this point on by out patient providers including your primary care provider and specialists. You had kidney failure and your blood pressure was very low. Your blood pressure continues to be on the low side. I recommend to stop taking few blood pressure medications and made some other changes as listed on the medication section. Please follow the new regimen. Your blood pressure may start to rise up over the next 1 to 2 weeks. Your primary care doctor may need to resume some of your blood pressure medications and water pill in the office. Discharge medications as listed are not final or set in stone. Primary care doctor and other out patient providers will need to titrate and adjust medications as soon as the first post discharge visit based on clinical progression, vitals signs, volume status and other related organs function. I recommend you to have every year low-dose radiation CAT scan of the chest to screen for lung cancer to be arranged by your primary care doctor. For any medication question, please contact your retail pharmacist or your primary care provider. Thank you. Forms: Portal Instructions Follow Up Appointments: Dr. Polo Koch 06/14 @ 10:20am [phone] Dr. Pardo (pulmonology) - office will call patient for an appt. [phone]
[2025-06-12 12:51] VITALS: BP 127/76; PULSE 100; TEMP 36.4; O2SAT 91
--- NOTE | 2025-06-12 18:42 | NUTR.NU ---
Pt admitted with c/o poor appetite; however, PO intakes in-house of regular diet are consistently good. No dietary concerns at this time.
--- NOTE | 2025-06-13 14:02 | CM.DCFOLLOWU ---
1st attempt. No answer
--- NOTE | 2025-06-14 13:26 | CM.DCFOLLOWU ---
Person spoke with: Eliceo How are you feeling? Much better How is your pain? No pain Did you understand your discharge instructions? Yes Do you have any questions about your discharge instructions? No Were you given any prescriptions at discharge? Yes Were you able to get your prescriptions filled? Yes Do you understand how to take your medications as ordered? Yes Do you have any questions about your follow up appointment and do you plan to keep your follow up appointment? No questions. He plans on keeping his appts. Is there anything else that you would like to discuss? No Questions/Comments/Concerns/Other:
--- NOTE | 2025-06-14 13:47 | CM.NOTE ---
Preliminary sputum culture sent to Dr. Martinez
--- OUTSIDE RECORDS SUMMARY | 2025-06-15 08:44 | XMS_ITS ---
Author Organization [facility] Address [address] [place] [address] Care Team Providers Care Orthotic Aide Name Role Phone Joe Cuellar DO Primary Care Provider [phone] Joe Cuellar DO Unavailable [phone] Inpatient Discharge Transitional Care Management (TCM) Status:Declined (Declined) Start date:06/12/2025 Enrollment date:06/13/2025 Enrollment reason:Identified using hospital discharge data End date:06/14/2025 Decline reason:Patient declined Overview Patient discharged from [facility] on 06/12. Please contact for hospital ANIVAL and schedule follow-up appointment within 7-14 days. Continued Care and Services Coordination
--- OUTSIDE RECORDS SUMMARY | 2025-06-15 08:44 | XMS_ITS | Clinical Summary ---
Author Organization [facility] Address [address] [place] [address] Care Team Providers Care Applicator Sprayer Name Role Phone Unavailable Primary Care Provider Unavailabl e Social History Tobacco UseTypesPacks/DayYears UsedDateSmoking Tobacco: Never AssessedSex and Gender InformationValueDate RecordedSex Assigned at BirthNot on fileLegal Sex Male01/22/2022 12:15 AM EDTGender IdentityNot on fileSexual OrientationNot on file Plan of Treatment Not on file
--- OUTSIDE RECORDS SUMMARY | 2025-06-15 08:44 | XMS_ITS | Encounter Summary ---
Author Organization [facility] Address [address] [place] [address] Care Team Providers Care Fulling Machine Operator Name Role Phone Joe Cuellar DO Primary Care Provider [phone] WindsorJoe mcclure DO Unavailable [phone] Encounter Details DateTypeDepartmentCare Team (Latest Contact Info)Ebeeruatczf47/19/2025Patient Outreach [facility] [address] [place] [place] [phone] Lakeisha Lyons LPN Social History Tobacco UseTypesPacks/DayYears UsedDateSmoking Tobacco: FormerCigarettes Smokeless Tobacco: NeverAlcohol UseStandard Drinks/WeekCommentsNever0 (1 standard drink = 0.6 oz pure alcohol)soda/pop 1-2 cups/dayPHQ-2AnswerDate RecordedPatient Health Questionnaire-2 [id number] and Gender InformationValueDate RecordedSex Assigned at BirthNot on fileLegal SexMale 10/07/2022 8:32 PM EDTGender IdentityNot on fileSexual OrientationNot on file documented as of this encounter Progress Notes * Lakeisha Lyons LPN - 06/13/2025 1:59 PM EST Flowsheet Row Patient Outreach from 06/13/2025 in [facility] with Lakeisha Lyons LPN Hospital Information ED, Hospital or Detention Facility Discharge? Hospital Diagnosis ANASTASIYA, dehydration, acute bacterial bronchitis, COPD with acute exacerbation, vomiting, A-Fib with RVR, Ileostomy, ASHD, HFpEF Discharge Date 06/12/25 Discharged To: Home Setting Discharge Hospital [facility] Engagement Call Start Time 1400 Admission Date 06/10/25 Medications Discharge medications reviewed and reconciled from hospital? Yes (P) Is the patient having any side effects they believe may be caused by any medication additions or changes? No (P) Does the patient have all medications ordered at discharge? Yes (P) Is the patient taking all medications as directed (includes completed medication regime)? Yes (P) Nursing Interventions Nurse provided patient education (P) Appointments Does the patient have a primary care provider? Yes (P) Nursing Interventions Verified appointment date/time/provider (P) Self Management Patient Teaching Does the patient have access to their discharge instructions? Yes (P) Nursing Interventions Reviewed instructions with patient (P) What is the patient's perception of their health status since discharge? Improving (P) Is the patient/caregiver able to teach back the hierarchy of who to call/visit for symptoms/problems? PCP, Specialist, Home Health nurse, Urgent Care, ED, 911 Yes (P) Wrap Up Called and spoke to pt. He continues with a cough and congestion but improving. He is drinking and eating alright as he doesn't have much of an appetite. Medications reconciled. He does not have a ride for HFU on 06/14, moved to 06/20. Declined 30 day monitor. documented in this encounter Plan of Treatment DateTypeDepartmentCare Team (Latest Contact Info)Vzbvwyaqbkp99/26/2025 9:20 AM ESTOffice Visit [facility] [address] [place] [phone] Joe Cuellar, DO [address] [place] [address] 09/11/2025 2:00 PM ESTOffice Visit [facility] [address] [place] [phone] Joe Cuellar, DO [address] [place] [address] documented as of this encounter Visit Diagnoses Diagnosis COPD exacerbation (HCC)- Primary Obstructive chronic bronchitis with exacerbation HFrEF (heart failure with reduced ejection fraction) (HCC) documented in this encounter Care Teams Team MemberRelationshipSpecialtyStart DateEnd Date Joe Cuellar DO [address] [place] [address] PCP - GeneralFamily Medicine12/01/22 Joe Cuellar DO [address] [place] [address] PCP - [facility]/07/251008/24/24documented as of this encounter
--- OUTSIDE RECORDS SUMMARY | 2025-06-15 08:45 | XMS_ITS | Clinical Summary ---
Author Organization [facility] Address [address] [place] [address] Care Team Providers Care Halfway House Counselor Name Role Phone Joe Cuellar DO Primary Care Provider [phone] PoloJoe DO Unavailable [phone] Allergies Active AllergyReactionsCriticalityNoted DateCommentsMorphineOther,Dizziness Ggacip1711/19/2018 Agitation Penicillin HMhvrycnfwkaKogn34/08/2023 Medications MedicationSigDispense QuantityRefillsLast FilledStart DateEnd DateStatus albuterol [...] time each day at the same time.Active albuterol HFA 90 mcg/act inhaler Indications:Chronic obstructive pulmonary disease, unspecified COPD type (HCC) INHALE 2 PUFFS EVERY 4 HOURS IF NEEDED FOR WHEEZING. 18 g 5Active tiotropium (Spiriva Respimat) 2.5 MCG/ACT inhaler Indications:Chronic [...] SAME TIME EACH DAY 20 tablet 5Active carvedilol (Coreg) 6.25 MG tablet Take 6.25 mg by mouth every 12 (twelve) hoursActive doxycycline (Adoxa) 100 MG tablet Take 100 mg by mouth in the morning and 100 mg before bedtime.06/12/2025 5Active predniSONE (Deltasone) 10 MG tablet 5Active furosemide (Lasix) 40 MG tablet TAKE 1 TABLET BY MOUTH EVERY DAY FOR 90 DAYS06/14/2025Discontinued(Discontinued by another clinician) lisinopril 2.5 MG tablet TAKE 1 TABLET BY MOUTH EVERY DAY FOR 90 DAYS06/14/2025Discontinued(Discontinued by another clinician) spironolactone (Aldactone) 25 MG tablet TAKE 1 TABLET BY MOUTH EVERY DAY FOR 90 DAYS06/14/2025Discontinued(Discontinued by another clinician) ondansetron ODT (Zofran-ODT) 4 MG disintegrating tablet Indications:Diverticulitis of intestine, part unspecified, with perforation and abscess without bleedingDISSOLVE 1 TABLET UNDER TONGUE ONCE A DAY AT THE SAME TIME EACH DAY 20 tablet Discontinued amLODIPine (Norvasc) 5 MG tablet Take 5 mg by mouth Daily06/14/2025Discontinued(Discontinued by another clinician) Toprol XL 100 MG 24 hr tablet Take 150 mg by mouthDiscontinued(Dose adjustment) Active Problems ProblemNoted DateDiagnosed DateAtherosclerosis of coronary artery without angina dskanaqx23/13/0041Nmxz02/24/3808Nwbuizt11/24/6440Xjxqksmzvhvt18/24/2024Status post non-ST elevation myocardial infarction (NSTEMI)01/17/2024Status post partial resection of colon01/17/2024Ventricular meclaqza73/24/2024espiratory failure with fhqbkqy6801/17/2024izziness, aspvkjghmsl65/18/2024Hypotension due to drugs01/11/2024QT cywzzburnipr49/18/2024cquired yekwcxeqrkvhhi71/08/2023phasia 12/31/2022oronary artery disease involving p[place]enta coronary artery of paskenta heart without angina awfxdqvu63/08/2023eneralized anxiety doxzcebs03/08/2023 Hemiparesis of right dominant side as late effect of cerebrovascular disease 12/31/2022HFrEF (heart failure with reduced ejection fraction)12/31/2022 Mucopurulent chronic tukdxttwko04/08/2023Nicotine dependence with nicotine- induced giigcgkq06/08/2023Other qajmlcamxknigl02/08/2023Other obesity due to excess otorcmkw02/08/2023resence of xferskrpe85/08/2023Primary hypertension 12/31/2022bdominal wall qurregi84/10/2021S/P colostomy vdoskbpg37/11/2021COPD fnuxlkqokmgw16/20/5963Uqpqtzgxojrgfx23/31/2020History of pulmonary embolus (PE) 03/25/2020History of tobacco abuse03/25/2020Ischemic /31/2020 Lower GI bleed03/25/2020Oral kpkpgk1703/25/20203862Nsyggmy78/12/2020Acute embolism and thrombosis of unspecified deep veins of right lower agwbhhyok41/13/2020Acute respiratory failure with sfpkquq2809/07/2019Acute respiratory dzrofis7109/07/2019 COPD (chronic obstructive pulmonary disease)09/07/2019Cardiomyopathy, jeexsnhvgal97/13/2020Cerebral infarction, nugmoobzxiy83/13/2020Chronic systolic (congestive) heart nbaqlnn7909/07/2019Cognitive communication pyyxdit3609/07/2019 Difficulty in walking, not elsewhere ezfcgjpzcy44/13/2020Diverticulitis of intestine, part unspecified, with perforation and abscess without bleeding 09/07/2019Muscle weakness (generalized)09/07/2019Other nonrheumatic mitral valve srqufaqkj26/13/2020Pneumonia, unspecified tsnrzxey25/13/2020Shortness of breath 09/07/2019Single subsegmental pulmonary embolism without acute cor pulmonale 09/07/2019Sleep apnea, kgsrsxzhpop18/13/2020Ventricular aswsaljxqrf39/13/2020 Abdominal wall fluid apbodydqntg44/24/2020Diverticulitis of large intestine with perforation without omrppjyb98/28/2019 Resolved Problems ProblemNoted DateDiagnosed DateResolved DateBilateral carpal tunnel syndrome InsomniaMemory zyriap9706/27/2024 06/27/2024NSTEMI (non-ST elevated myocardial infarction) Vitamin D yzxfimiztd79Hypothyroidism Chronic combined systolic and diastolic congestive heart cffdaiy6206/27/2024 06/27/2024hronic obstructive pulmonary todymug01Vertigo Tobacco userObstructive sleep apnea Hx of non-ST elevation myocardial infarction (NSTEMI) bscess of sigmoid colon due to /24/2024 01/17/2024ardiogenic pulmonary edemaHyponatremia01/17/2024 01/17/20241812Iddxskw63SyncopeSingle subsegmental thrombotic pulmonary embolism without acute cor zkjunnhjq75/13/2020 04/25/2024 Encounters DateTypeDepartmentCare FbmyGreepgyjltb73/19/2025Patient Outreach [facility] [address] [place] [address] Lakeisha LyonsFANTA 05/23/2025[facility] [address] [place] [address] Ridge, Joe L, DO Diverticulitis of intestine, part unspecified, with perforation and abscess without ymrtjdkc57/18/2025[facility] [address] [place] [address] Ridge, Joe L, DO Insomnia, unspecified type03/19/2025[facility] [address] [place] [address] Ridge, Joe L, DO Insomnia, unspecified typefrom Last 3 Months Immunizations ImmunizationAdministration DatesNext DueInfluenza, High Dose Seasonal, Preservative Free04/02/2022Influenza, injectable, MDCK, preservative free, lhcsphxmkape22/11/2019Influenza, injectable, quadrivalent, preservative free 07/24/2018Influenza, seasonal, omgqedsolq85/01/2020Pneumococcal Polysaccharide WVQX5383 Family History Medical HistoryRelationNameCommentsThroat cancerMotherNo Known ProblemsSister3 - healthyRelationNameStatusCommentsFatherDeceasedMotherDeceasedSister Social History Tobacco UseTypesPacks/DayYears UsedDateSmoking Tobacco: FormerCigarettes Smokeless Tobacco: Never Tobacco Cessation:Counseling Given: Yes Alcohol UseStandard Drinks/WeekCommentsNever0 (1 standard drink = 0.6 oz pure alcohol)soda/pop 1-2 cups/dayPHQ-2AnswerDate RecordedPatient Health Questionnaire-2 Enbkb726Sex and Gender InformationValueDate RecordedSex Assigned at BirthNot on fileLegal YntVdxf6410/07/2022 8:32 PM EDTGender Identity Not on fileSexual OrientationNot on file Last Filed Vital Signs Vital SignReadingTime TakenCommentsBlood Hvhpgtzr330/76003/07/2025 12:48 PM EDT Zfdge05392/13/2025 12:48 PM TYVGijwvprfxac04.3 ??C (97.4 ??F)03/07/2025 12:48 PM EDTRespiratory Rate--Oxygen Pkdksrsnzc57%03/07/2025 12:48 PM EDTInhaled Oxygen Concentration--Fqodde393 kg (256 lb)03/07/2025 12:48 PM IBXFmesly544.6 cm (5' 6 )03/07/2025 12:48 PM EDTBody Mass Index41.32003/07/2025 12:48 PM EDT Plan of Treatment DateTypeDepartmentCare Team (Latest Contact Info)Wjtbxtrbggf44/26/2025 9:20 AM ESTOffice Visit [facility] [address] [place] [phone] Joe Cuellar, DO [address] [place], [place] [phone] 09/11/2025 2:00 PM ESTOffice Visit [facility] [address] [place] [phone] Joe Cuellar, DO [address] [place], [place] [phone] Health MaintenanceDue DateLast DoneCommentsPneumococcal Vaccine: Pediatrics (0 to 5 Years) and At-Risk Patients (6 to 64 Years) (2 of 2 - PCV)08/08/2020 08/08/2019COVID-19 Vaccine ( - season)2025Influenza Vaccine (#1) , 04/02/2022, 08/26/2019, Additional history exists Insurance Care Teams Team MemberRelationshipSpecialtyStart DateEnd Date Joe Cuellar DO [address] [facility] [address] [place] [address] PCP - GeneralFamily Medicine12/01/22 Joe Cuellar DO [address] [facility] [address] [place] [address] PCP - [facility]4/07/2510
--- OUTSIDE RECORDS SUMMARY | 2025-06-15 08:45 | XMS_ITS | Clinical Summary ---
Author Organization [facility] Address [address] [place] [address] Phone Care Team Providers Care Director Teen Post Name Role Phone Unavailable Primary Care Provider Unavailabl e Social History Tobacco UseTypesPacks/DayYears UsedDateSmoking Tobacco: Never AssessedSex and Gender InformationValueDate RecordedSex Assigned at BirthNot on fileLegal Sex Male06/20/2022 6:29 AM ESTGender IdentityNot on fileSexual OrientationNot on file Last Filed Vital Signs Vital SignReadingTime TakenCommentsBlood Lgqliuaz976/8608/19/2022 2:09 PM EST Bjuhq969308/19/2022 2:09 PM ESTTemperature--Respiratory Rate--Oxygen Saturation-- Inhaled Oxygen Concentration--Jzsoik58.5 kg (215 lb)2022 2:09 PM ESTHeight 167.6 cm (5' 6 )2022 2:09 PM ESTBody Mass Index34.7008/19/2022 2:09 PM EST Plan of Treatment Health MaintenanceDue DateLast DoneCommentsCT Kugifzeklcfo08/25/1967Colonoscopy 1966Colorectal Cancer Waxtojzbr19/25/1967FIT-DNA (Cologuard)1966FIT 1966HIV Kyqjvsruq89/25/1967Lipid Panel1966 3317Sjsdfpxrjidiv36/25/1967 Yearly Adult Wfbftdzo24/25/1967MMR Vaccines (1 of 1 - Standard series)1967 Diabetes Oytxwqzup71/25/1985Hepatitis C Xfpwwxdal25/25/1985Hepatitis B Vaccines (1 of 3 - 19+ 3-dose series)1985DTaP/Tdap/Td Vaccines (1 - Tdap)1988 PSA Prostate Cancer Sofzgfkrq56/25/2017Pneumococcal Vaccine (1 of 1 - PCV) 2016Zoster [...] to complete this topic Procedures Procedure NamePriorityDate/TimeAssociated CygbykicjKstlzdovUMGUqmeqwo82/16/2021 9:52 AM EDT from Last 3 Months or Most Recently Relevant to Health Maintenance Results * (ABNORMAL) Thyroid Stimulating Hormone (01/08/2021 9:52 AM EDT)ComponentValue Ref RangeTest MethodAnalysis TimePerformed AtPathologist SignatureTSH8.79(H) 0.44 - 3.98 [facility] LABComment: TSH testing is performed using different testing methodology at [facility] than at other [facility]. Direct result comparisons should only be made within the same method. Specimen (Source)Anatomical Location / LateralityCollection Method / Volume Collection TimeReceived Time01/08/2021 9:52 AM EDT01/08/2021 5:49 PM EDT Narrative Authorizing ProviderResult TypeResult StatusWicarlos Ocampo MDLAB BLOOD ORDERABLESFinal ResultPerforming OrganizationAddressCity/State/ZIP CodePhone Number [facility] from Last 3 Months or Most Recently Relevant to Health Maintenance [place] [address]
--- OUTSIDE RECORDS SUMMARY | 2025-06-15 08:45 | XMS_ITS | Clinical Summary ---
Author Organization [facility] Address [address] [place] [address] Care Team Providers Care Combiner Operator Name Role Phone Yvette PepperAraceli Primary Care Provider [phone] Cee Leo Unavailable Manjula Lind MD, PhD Unavailable [phone] Vanessa Wilson MD Unavailable [phone] Source Comments The following information is NOT included in Care Everywhere downloads:Psychiatric notes, ECG results, Cardiac Rehab notes, Pulmonary Function notes, data from [facility] (includes but not limited toPregnancy data,audiograms, eye exams, pre-surgical evaluation notes, well-child exam data).[facility] Allergies Active AllergyReactionsCriticalityNoted DateCommentsMorphineAgitationMedium 11/19/2018PenicillinsDifficulty KuetxqtulInwm62/27/2019 Medications MedicationSigDispense QuantityRefillsLast FilledStart DateEnd DateStatus Ondansetron [...] skin every morning. 10 Patch ctive Tiotropium [place] Monohydrate (Spiriva Respimat) 2.5 MCG/ACT AERS 2 puffsActive naloxone 4 mg/0.1 mL nasal liquid Use 1 [place] in one nostril (alternate sides) as needed [...] ctive Active Problems ProblemNoted DateDiagnosed DateAbdominal wall dkpnmdy2905/04/2021ttention to btnvlgkmy10/08/2021 Overview (04/02/2021): Added automatically from request for surgery [id number] S/P colostomy dxamwqms70/11/2021COPD azamfeaogkks67/20/2021Lower GI bleed 03/25/2020Ischemic gwfcatbsgvhgsp04/31/2020HFrEF (heart failure with reduced ejection fraction)03/25/2020Acquired ujwslahriunysg72/31/2020Oral thrush 03/25/2020Essential xmzjgkaswoik40/31/2020History of tobacco abuse03/25/2020 Tuufznmlylxvwe26/31/2020Coronary artery disease due to calcified coronary lesion 03/25/2020History of pulmonary embolus (PE)03/25/2020Class 1 obesity due to excess calories with body mass index (BMI) of 33.0 to 33.9 in adult03/25/2020 COPD (chronic obstructive pulmonary disease)02/06/20202178Hlszneu71/12/2020Abdominal wall fluid mbsqagxjkcq36/24/2020Diverticulitis of large intestine with perforation without egabvbxp86/28/2019Dizziness, nonspecificHypotension due to drugsQT prolongation Resolved Problems ProblemNoted DateDiagnosed DateResolved DateColostomy meunradfn48/18/2021 12/03/2020 Overview (10/10/2020): Added automatically from request for surgery [id number] Colostomy qdquoduqgwb43 Overview (06/14/2020): Added automatically from request for surgery [id number] Attention to cidduvkaa61 Immunizations ImmunizationAdministration DatesNext KmeNcgbsys76/25/2021Influenza, Injectable, MDCK, Quadrivalent, Preservative Free (ZIC=102)07/05/2019Influenza, injectable, quadrivalent, preservative free (HLV=113)07/24/2018Influenza, injectable, trivalent, preservative (UTU=887)08/26/2019Pneumococcal polysaccharide 23 Valent (PPSV23) (CVX=33)08/08/2019 Social History Tobacco UseTypesPacks/DayYears UsedDateSmoking Tobacco: Light SmokerCigarettes2 35Smokeless Tobacco: Never Tobacco Cessation:Counseling Given: Yes Comments:Smokes approx three cigarettes a month when pt is stressed Sex and Gender InformationValueDate RecordedSex Assigned at BirthNot on file Legal XgdUpui4111/19/2018 10:10 PM EDTGender IdentityNot on fileSexual Orientation Not on file Last Filed Vital Signs Vital SignReadingTime TakenCommentsBlood Ozuivyzm574/63012/30/2021 11:50 AM EDT Cnjvu30524/07/2022 11:50 AM ZPIOiwojmzicsd76.1 ??C (98.7 ??F)09/02/2021 2:12 PM ESTRespiratory Awpu333612/30/2021 11:50 AM EDTOxygen Aubwrnwqre44%07/30/2021 6:00 PM ESTInhaled Oxygen Concentration--Auzoom36.9 kg (218 lb)12/30/2021 11:50 AM NIWOzwfqv221.6 cm (5' 6 )12/30/2021 11:50 AM EDTBody Mass Index35.19012/30/2021 11:50 AM EDT Plan of Treatment Health MaintenanceDue DateLast EbrwHgdbzdbcAhbhkjmrjcc41/25/1967Ejection Pfnnldbw22/25/1967Tdap Gztxjpd7308/19/1984Hepatitis A (HAV) Vaccine (optional start 19+ years)1985Hepatitis B (HBV) Vaccine (1 of 3 - 19+ 3-dose series) 1985CRC Edrfnmdkj99/25/2012Cologuard (Stool DNA)2011FIT2011 Shingles (RZV) Vaccine (1 of 2)2016Pneumococcal Vaccine(s) (50+ yrs) (2 of 2 - PCV)/8640PMO50/31//Basic Metabolic Panel /11/2021, 05/05/2021, 05/03/2021, Additional history existsCOVID-19 Vaccine ( - 2024- season)2025Influenza Vaccine (#1)2025 08/26/2019, 07/05/2019, 07/24/20186672Wrxstzxqymy08/28/13525809/22/2021HIV Test Amscpcxmk48/27/2019Hepatitis C JluplljsEuoyhxbhq50/20/2021 Procedures Procedure NamePriorityDate/TimeAssociated DiagnosisCommentsBASIC METABOLIC PANEL STAT07/30/2021 12:45 PM EST HEPATITIS C KRRXLGMCSHHX66/20/2021 2:08 PM EDT TDUMfpmowx92/31/2020 4:18 AM EDT HIV1 HIV2 AGAB PKTLMLAH71/27/2019 10:21 PM EDT from Last 3 Months or Most Recently Relevant to Health Maintenance Results * (ABNORMAL) BASIC METABOLIC PANEL (07/30/2021 12:45 PM EST)ComponentValueRef RangeTest MethodAnalysis TimePerformed AtPathologist HabndgowsYnhgnaf49619 - 110 mg/dL07/30/2021 2:49 PM ESTS PATHOLOGY AXZOMCNYIMAeyxbt809475 - 148 mmol/L07/30/2021 2:49 PM ESTS PATHOLOGY LABORATORYPotassium3.83.3 - 5.3 mmol/L07/30/2021 2:49 PM ESTS PATHOLOGY LABORATORYCarbon Orkwptc8252 - 30 mmol/L07/30/2021 2:49 PM ESTS PATHOLOGY IYEJFNPPZRJxkhczmi80473 - 111 mmol/L 07/30/2021 2:49 PM ESTS PATHOLOGY LABORATORYBlood Urea Nitrogen5(L)8 - 22 mg/dL07/30/2021 2:49 PM ESTS PATHOLOGY LABORATORYCreatinine0.69(L)0.80 - 1.30 mg/dL07/30/2021 2:49 PM ESTS PATHOLOGY LABORATORYCalcium8.78.4 - 10.4 mg/dL07/30/2021 2:49 PM ESTS PATHOLOGY LABORATORYAnion Pyd5796 - 20 07/30/2021 2:49 PM ESTS PATHOLOGY LABORATORYEstimated GFR (CKD-EPI)108>=60 mL/min/1.90jfh6707/30/2021 2:49 PM ESTS PATHOLOGY LABORATORYSpecimen (Source) Anatomical Location / LateralityCollection Method / VolumeCollection Time Received TimeBloodBLOOD SPECIMEN / Anhbdvp2807/30/2021 12:45 PM EST07/30/2021 2:05 PM EST Narrative Authorizing ProviderResult TypeResult StatusLisa Amanda MD98 GENERAL LAB Final ResultPerforming OrganizationAddLehigh [facility] Hospital [facility]yl[facility] East Norwegian Streetty/State/ZIP CodePhone Number [facility] [address] [place] [phone] * HEPATITIS C ANTIBODY (11/12/2020 2:08 PM EDT)ComponentValueRef RangeTest MethodAnalysis TimePerformed AtPathologist SignatureHepatitis C AbNonreactive Qilgnkfxlqi15/20/2021 7:31 PM EDB[facility] PATHOLOGY LABORATORYSpecimen (Source) Anatomical Location / LateralityCollection Method / VolumeCollection Time Received TimeBloodBLOOD SPECIMEN / Jplcajm1511/12/2020 2:08 PM EDT11/12/2020 6:02 PM EDT Narrative Authorizing ProviderResult TypeResult StatusElikathie Zuniga MDEC HIV/HEP/SYPH TESTINGFinal ResultPerforming OrganizationAddressty/State/ZIP CodePhone Number [facility] [address] [place] [phone] * (ABNORMAL) TSH (03/25/2020 4:18 AM EDT)ComponentValueRef RangeTest Method Analysis TimePerformed AtPathologist SignatureTSH8.055(H)0.450 - 5.330 uIU/mL 03/25/2020 7:45 AM EDBAP[facility] PATHOLOGY LABORATORYSpecimen (Source)Anatomical Location / LateralityCollection Method / VolumeCollection TimeReceived Time BloodBLOOD SPECIMEN / Krmjgsq4403/25/2020 4:18 AM EDT03/25/2020 7:02 AM EDT Narrative Authorizing ProviderResult TypeResult StatusTarik Atassi DO98 GENERAL LABFinal ResultPerforming OrganizationAddressty/State/ZIP CodePhone Number [facility] [address] [place] [phone] * HIV1 HIV2 AGAB SCRN (11/19/2018 10:21 PM EDT)ComponentValueRef RangeTest MethodAnalysis TimePerformed AtPathologist SignatureHIV Ag-Ab Screen Hoi-GxdyjhlxBnd-Wjmevkho86/ 1:21 AM [facility] PATHOLOGY LABORATORYComment: No HIV Infection. HIV - 1 HeHwm-DqooxekjJns-Pkurptvq10/28/2019 1:21 AM [facility] HIV-1 p24 NcujleqLwk-SgaadgndZtq-Laogcogx49/28/2019 1:21 AM [facility] PATHOLOGY LABORATORYHIV-2 ZrGmu-CjdirbexUnk-Ezpwepyw16/28/2019 1:21 AM [facility] PATHOLOGY LABORATORYSpecimen (Source)Anatomical Location / LateralityCollection Method / VolumeCollection TimeReceived TimeBloodBLOOD SPECIMEN / Zdwqong7811/19/2018 10:21 PM EDT11/19/2018 11:59 PM EDT Narrative [facility] PATH[facility] - 11/20/2018 1:21 AM EDT [...] BETHEA HIV/HEP/SYPH TESTINGFinal ResultPerforming OrganizationAddressCity/State/ZIP CodePhone Number [facility] [address] [place] [phone] from Last 3 Months or Most Recently Relevant to Health Maintenance Insurance Advance Directives * Full Code (Latest Code Status on File) Date ActivatedDate JcmljlakkscPzleqlsd40/10/2021 5:38 AM05/05/2021 1:46 PM QuestionAnswerCommentsDocumentation of decision [...] MemberRelationshipSpecialtyStart DateEnd Date Yvette Pepper [address] [facility] [place] [address] PCP - GeneralFamily Medicine03/28/20 Cee Leo LISW [address] [address] Social WorkerSocial Work04/30/20 Manjula Lind MD, PhD [address] [place] [address] PhysicianTrauma Qvruvly30/1/21 Vanessa Wilson MD [address] [place] [address] PhysicianTrauma Surgery08/29/22
--- OUTSIDE RECORDS SUMMARY | 2025-06-15 08:49 | XMS_ITS | CCD ---
Author Organization [facility] Informat ion Partnership [facility] Care Team Providers Care Health Safety Engineer Name Role Phone PATY GUERRA Attending Unavailable NONE Primary Care Unavailable AARON OCAMPO Attending Unavailable NONE Primary Care Unavailable None, No PCP Unavailable Unavailable Unavailable Unavailable Unknown, Referring Provider Unavailable Unav ailable Tawnya Pepper Primary Care Provider [phone] Cee Whittaker Unavailable [phone] Diogo SOLIS, PhD, Manjula Putnam Unavailable DO Carmine Jackson Attending Provider [phone] DO Medhat Baltazar Referring Provider Dr. Aaron Ocampo II Attending Unavaila lory MOY Dr. PCP Primary Care Unavailable DO Carmine Jackson Attending Provider [phone] DO Medhat Baltazar Referring Provider DO Medhat Baltazar Referring Provider MD Carolyn Dugan Attending Provider [phone] DO Medhat Baltazar Attending Provider FAMILY, HEALTH [...] SAV Admitting Unavailable SAMSA SAV Attending Unavailable [facility] Primary Care Unavaila ble Tawnya Pepper Primary Care Provider [phone] Felipa PAEZCarlana Unavailable Diogo SOLIS, PhD, Manjula Putnam Unavailable [phone] McGuinn II, Aaron Dentonrick Referring Unav ailable McGuinn II, Aaron Christiansen Attending Unav ailable UNKNOWN, PCP Primary Care Unavailable UNKNOWN, PCP Primary Care Unavailable McGuinn II, Aaron Christiansen Referring Unav ailable McGuinn II, Aaron Christiansen Attending Unav ailable Lowrie, Islam Consulting Unavailable [facility] Primary Care Unavaila ble Mast, Shane Attending Unavailable Mast, Shane Admitting Unavailable Carolyn Dugan Attending Unavailable Carolyn Dugan Admitting Unavailable LowrieMedhat Referring Unavailable Lowrie, Islam Referring Unavailable Steve Jacksonew Viv Attending Unavailable Carmine Jackson Admitting Unavailable AMBER CUELLAR Primary Care Physician Tawnya Pepper Primary Care Provider Felipa PAEZCee Unavailable [phone] Diogo SOLIS, PhD, Manjula Putnam Unavailable Steve SOLIS, Vanessa Unavailable PROVIDER, UNKNOWN Attending Unavailable PROVIDER, UNKNOWN Admitting Unavailable TAWNYA PEPPER Primary Care Unavailable Amber Cuellar DO Primary Care Provider [phone] Blanco Lazcano Attending Unavailable Blanco Lazcano Referring [...] Referring Unavailable MD Blanco Lazcano Admitting Unavailable HialeahAmber mcclure DO L Unavailable [phone] CUTLERRENOAMBER L Attending Unavailable MISTI PARDO Attending [...] (20 sources)Penicillins; Translations: [Penicillins]Allergy to drug (finding) 75-64-5543Slpssbgezd Breathing, Reaction (qualifier value)[facility]- Teressa 250 DO Work Phone: (17 sources)Morphine; Translations: [MORPHINE]Drug Fgvoqyq02-33-0715Quiueynph, Other, DizzinessMetroHealth Work Phone: (1 source)MorphineDrug AllergyThe [facility]ository (1 source)PenicillinDrug AllergyThe [facility] (9 sources)Penicillins; Translations: [penicillins]Propensity to adverse reactions to komy69-47-5058Vzvlxgqudi Breathing, Reaction (qualifier value) [facility] ([facility] source)PenicillinsDrug allergy (disorder)14-26-2393[facility] (9 sources)Penicillin GDrug Echztaj36-54-0314GwvdxppzpnzUYTI Healthcare Medications Current Medications MedicationDrug Class(es)DatesSig (Normalized)Sig (Original)acetaminophen 325 mg / HYDROcodone bitartrate 5 mg oral tablet (20 sources)Opioid AgonistStart: 04-03-2020 End: 34-58-8202tfhl 1 tablet by mouth every six hoursHydrocodone-Acetaminophen Active 5 - 325 TAB PO Every 6 hours April 02, 2020 11:97tceaq960710 200 actuat albuterol 0.09 mg/actuat metered dose inhaler (20 sources)beta2-Adrenergic AgonistStart: 64-66-0891ooeb 2 puff(s) by inhalation every four hours for wheezingalbuterol HFA 90 mcg/act inhaler Indications: Chronic obstructive pulmonary disease, unspecified COPD type (HCC) INHALE 2 PUFFS EVERY 4 HOURS IF NEEDED FOR WHEEZING. 18 g 5 02/21/2025 Active Start: 05-05-2024 End: 62-77-1690vqmv 2 puff(s) by inhalation every four hours for wheezing albuterol HFA 90 mcg/act inhaler Indications: Chronic obstructive pulmonary disease, unspecified COPD type (HCC) Inhale 2 puffs every 4 (four) hours if needed for wheezing 18 g 5 05/05/2024 02/21/2025 DiscontinuedStart: 11-25-2022 albuterol Refills(s) 0 Start Date: 11/25/22 Status: Ordered Repeat number: 1Start: 04-20-9805zmrajrjtw Refills(s) 0 Start Date: 11/25/22 Status: OrderedStart: 30-42-9743klcg 1 puff(s) by inhalation every four hoursAlbuterol Sulfate (Proair Hfa) 90 mcg/actuation HFA aerosol inhaler Active 2 PUFF INHALATION Q4H July 04, 2019 4:12pmStart: 07-26-2018 End: 32-43-3342kbad 2.5 mg by inhalation every eight hoursAlbuterol Sulfate Discontinued 2.5 MG INHALATION Q8H 90 July 26, 2018 12:00am September 07, 2019 2:50pmStart: 06-06-2018 End: 60-36-6618Uinnbiehi Sulfate (Proair Hfa) 90 mcg/actuation HFA aerosol [...] hydrochloride 200 mg oral tablet (10 sources)AntiarrhythmicStart: 07-11-1537rvmc 2 tablets by mouth once daily Amiodarone (Pacerone) 200 mg tablet Active 400 MG PO Daily April 03, 2020 2:28pmStart: 07-07-2019 End: 21-73-6269ljvg 200 mg by mouth once dailyAmiodarone Discontinued 200 MG PO Daily 60 July 07, 2019 2:42pm April 03, 2020 2:29pmStart: 06-14-2018 End: 01-74-6096ssbr 400 mg by mouth once dailyAmiodarone Discontinued 400 MG PO Daily 60 June 14, 2018 12:00am July 07, 2019 2:48pmStart: 06-06-2018 End: 73-02-5071xpfi 400 mg by mouth twice dailyAmiodarone Discontinued 400 MG PO Twice daily 120 June 06, 2018 12:00am June 14, 2018 12:53pm amLODIPine 5 mg oral tablet (4 sources)Dihydropyridine Calcium Channel BlockerStart: 58-07-5260anzg 1 tablet by mouth once dailyNorvasc 5 mg Tab 5 mg = 1 tab(s), Oral, Daily, # 30 tab(s), Refills(s) 6, Pharmacy: [facility]/pharmacy #[id number], 167, cm, 08/24/24 13:40:00 EST, Height/Length Dosing, 111, kg, 08/24/24 13:46:00 EST, Weight Dosing Start Date: 08/24/24 Status: Ordered Quantity: 30.0 Unit: tab(s) Repeat number: 7aspirin 81 mg delayed release oral tablet (20 sources)Platelet Aggregation Inhibitor, Nonsteroidal Anti-inflammatory Drug Start: 78-89-5437suba 1 tablet by mouth once dailyaspirin 81 mg Oral EC Tab 81 mg = 1 tab(s), Oral, Daily, # 30 tab(s), Refills(s) 0 Start Date: 11/25/22 Status: Ordered Quantity: 30.0 Unit: tab(s) Repeat number: 1Start: 85-99-8981bujk 1 tablet by mouth once dailyAspirin Low Dose 81 MG Oral Tablet Delayed Release TAKE 1 TABLET BY MOUTH EVERY DAY Quantity: 30 Refills: 0 Ordered: 17-Aug-2022 Aaron Ocampo MD Start : 16-May-2020 ActiveStart: 06-06-2018 End: 78-24-0270vzhy 1 tablet by mouth once dailyAspirin Low [...] mg oral tablet (20 sources)HMG-CoA Reductase InhibitorStart: 51-70-8580afgp 1 tablet by mouth once dailyatorvastatin 80 mg Tab 80 mg = 1 tab(s), Oral, Daily, # 30 tab(s), Refills(s) 5, Pharmacy: [facility]/pharmacy #[id number], 167, cm, 05/24/24 13:49:00 EDT, Height/Length Dosing, 110.8, kg, 05/24/24 13:49:00 EDT, Weight Dosing Start Date: 05/26/24 Status: Ordered Quantity: 30.0 Unit: tab(s) Repeat number: 6Start: 99-19-6132ccuu 1 tablet by mouth once daily at bedtimeAtorvastatin Calcium 80 MG Oral Tablet TAKE 1 TABLET BY MOUTH EVERYDAY AT BEDTIME Quantity: 90 Refills: 3 Ordered: 19-Aug-2022 Aaron Ocampo MD Start : 21-Jul-2021 ActiveStart: 06-06-2018 End: 29-59-8781tmmh 80 mg by mouth once daily in the eveningAtorvastatin Discontinued 80 MG PO Every evening June 14, 2018 12:00am April 03, 2020 2:29pm60 actuat budesonide 0.16 mg/actuat / formoterol fumarate 0.0045 mg/actuat metered dose inhaler (20 sources)Corticosteroid, beta2-Adrenergic AgonistStart: 86-45-6063khaxknzipw- formoterol (Symbicort) 160-4.5 MCG/ACT inhaler Indications: Chronic obstructive pulmonary disease, unspecified COPD type (HCC) Inhale 2 puffs every 12 (twelve) hours 3 each 3 03/07/2025 ActiveStart: 01-40-1936jbnz 2 puff(s) by mouth twice dailyBudesonide-Formoterol (Symbicort) 160-4.5 mcg/actuation HFA aerosol inhaler Active 2 PUFF INHALATION Twice daily April 02, 2020 11:00pm INHALE 2 PUFFS BY MOUTH TWICE A DAY *RINSE AFTER USE*Start: 29-17-3765chbd 2 puff(s) by mouth twice dailySymbicort 160-4.5 MCG/ACT inhaler Inhale 2 Puffs by mouth 2 times daily. 03/14/2020 Active End: 92-49-8355Oeblszdpu 160-4.5 MCG/ACT inhaler every 12 (twelve) hours. 03/07/2025 Discontinued (Reorder)carvedilol 6.25 mg oral tablet (20 sources)alpha-Adrenergic Filippo, beta-Adrenergic BlockerStart: 11-25-2022 take 1 tablet by mouth twice dailycarvedilol 6.25 mg Tab 6.25 mg = 1 tab(s), Oral, BID, # 60 tab(s), Refills(s) 5, Pharmacy: [facility]/pharmacy #[id number], 167, cm, 05/24/24 13:49:00 EDT, Height/Length Dosing, 110.8, kg, 05/24/24 13:49:00 EDT, W eight Dosing Start Date: 05/26/24 Status: OrderedStart: 06-06-2018 End: 25-84-8068ygyd 1 tablet by mouth twice dailyCarvedilol 6.25 MG Oral Tablet take 1 tablet by mouth twice a day Quantity: 180 Refills: 3 Ordered:19-Aug-2022 Aaron Ocampo MD Start : 13-Oct-2021 Activeclopidogrel 75 mg oral tablet (20 sources)P2Y12 Platelet InhibitorStart: 53-44-5016cvgb 1 tablet by mouth once dailyclopidogrel 75 mg Tab 75 mg = 1 tab(s), Oral, Daily, # 30 tab(s), Refills(s) 5, Pharmacy: [facility]/pharmacy #[id number], 167, cm, 05/24/24 13:49:00 EDT, Height/Length Dosing, 110.8, kg, 05/24/24 13:49:00 EDT, Weight Dosing Start Date: 05/26/24 Status: Ordered Quantity: 30.0 Unit: tab(s) Repeat number: 6Start: 88-24-7106uiho 1 tablet by mouth once dailyClopidogrel Bisulfate 75 MG Oral Tablet TAKE 1 TABLET BY MOUTH EVERY DAY Quantity: 90 Refills: 3 Ordered: 19-Aug-2022 Aaron Ocampo MD Start : 21-Feb-2021 ActiveStart: 07-04-2019 End: 92-72-6063dygq 75 mg by mouth once dailyClopidogrel Discontinued 75 MG PO Daily July 04, 2019 12:00am September 07, 2019 2:50pmclotrimazole 10 mg oral lozenge (4 sources)Azole AntifungalStart: 04-03-2020 End: 63-66-1117Zqutsibjpawk Active 10 MG MUCOUS MEM Four times daily April 02, 2020 11:00pmcyclobenzaprine hydrochloride 5 mg oral tablet (20 sources)Muscle RelaxantStart: 11-25-2022 End: 36-88-2802afjwnlssybgsngn 5 mg Tab Refills(s) 0 Start Date: 11/25/22 Status: Orderedtake 1 tablet by mouth three times daily as neededCyclobenzaprine HCl - 5 MG Oral Tablet TAKE 1 TABLET 3 TIMES DAILY NEEDED. Quantity: 0 Refills: 0 Ordered: 07-Jul-2021 DO Activeezetimibe 10 mg oral tablet (3 sources)Dietary Cholesterol Absorption InhibitorStart: 80-25-5751yzva 1 tablet by mouth once dailyZetia 10 mg Tab 10 mg = 1 tab(s), Oral, Daily, # 30 tab(s), Refills(s) 6, Pharmacy: [facility]/pharmacy #[id number], 167, cm, 08/01/24 7:46:00 EST, Height/Length Dosing, 111, kg, 01/07/25 7:46:00 EST, Weight Dosing Start Date: 08/01/24 Status: Ordered Quantity: 30.0 Unit: tab(s) Repeat number: 7 furosemide 40 mg oral tablet (20 sources)Loop DiureticStart: 41-25-4958amzs 1 tablet by mouth once daily furosemide 40 mg Tab 40 mg = 1 tab(s), Oral, Daily, # 30 tab(s), Refills(s) 0 Start Date: 11/25/22 Status: Ordered Quantity: 30.0 Unit: tab(s) Repeat number: 1 Start: 09-07-2019 End: 10-00-1184xlrw 40 mg by mouth twice dailyFurosemide Discontinued 40 MG PO Twice daily 60 September 07, 2019 12:00am April 03, 2020 2:29pmStart: 11-19-2018 End: 44-95-0422aqtf 40 mg by mouth twice dailyFurosemide Discontinued 40 MG PO Twice daily November 18, 2018 11:00pm August 31, 2019 4:38amStart: 10-10-2018 End: 51-90-8015pfxm 20 mg by mouth once dailyFurosemide Discontinued 20 MG PO Daily October 09, 2018 11:00pm November 19, 2018 5:50pmStart: 06-06-2018 End: 01-58-9125ktch 40 mg by mouth twice dailyFurosemide Discontinued 40 MG PO BID@0800,1600 60 June 14, 2018 12:00am August 25, 201810:11am gabapentin 100 mg oral capsule (20 sources)Anti-epileptic AgentStart: 82-77-7948mive 1 capsule by mouth three times dailygabapentin (NEURONTIN) 100 MG capsule Take 1 Capsule by mouth 3 times daily for 120 days. 90 Capsule 3 10/20/2020 Ldzzus00 hr isosorbide mononitrate 30 mg extended release oral tablet (11 sources)Nitrate VasodilatorStart: 57-29-3130dekm 1 tablet by mouth once dailyIsosorbide Mononitrate Active 30 MG PO Daily April 02, 2020 11:00pm TAKE 1 TABLET BY MOUTH EVERY DAYStart: 07-04-2019 End: 20-22-8900wtax 30 mg by mouth once dailyIsosorbide Mononitrate Discontinued 30 MG PO Daily July 04, 2019 12:00am August 31, 2019 4:41amisosorbide mononitrate (MONOKET) 10 MG tablet Take 30 mg by mouth daily. ActivelevoFLOXacin 500 mg oral tablet (4 sources)Quinolone AntimicrobialStart: 64-01-5936ayus 500 mg by mouth once dailyLevofloxacin Active 500 MG PO Daily 01 29April 04, 2020 11:00pmStart: 11-19-2018 End: 73-27-3008ifdb 750 mg by mouth once dailyLevofloxacin Discontinued 750 MG PO Daily November 18, 2018 11:00pm July 04, 2019 4:17pmlevothyroxine sodium 0.2 mg oral tablet (20 sources)l-ThyroxineStart: 01-55-2320fjbk 1 tablet by mouth once daily levothyroxine 200 mcg (0.2 mg) Tab 200 mcg = 1 tab(s), Oral, Daily, # 30 tab(s), Refills(s) 0 StartDate: 11/25/22 Status: Ordered Quantity: 30.0 Unit: tab(s) Repeat number: 1Start: 68-88-1352kvgp 1 tablet by mouth once daily at [...] DO ActiveLidocaine (20 sources)Antiarrhythmic, Amide Local AnestheticStart: 98-53-8027bxvjxexjx 5% patch Refill(s) 0 Start Date: 11/25/22 Status: Ordered Repeat number: 1Start: 85-06-0602shcpumvqs 5% patch Refill(s) 0 Start Date: 11/25/22 Status: Ordered Start: 16-80-8786koxfh 1 dose transdermal route once daily in the morning lidocaine (LIDODERM) 5 % patch Place 1 Patch on the skin every morning. 10 Patch 3 10/20/2020 Active End: 74-68-7684Rlbustsmy 4 % patch 1 (one) time each day at the same time. 03/07/2025 DiscontinuedLidocaine 5 % External Patch APPLY DIRECTED. Quantity: 0 Refills: 0 Ordered: 07-Jul-2021 DO Activelisinopril 2.5 mg oral tablet (20 sources)Angiotensin Converting Enzyme InhibitorStart: 24-44-5057tckr 1 tablet by mouth once dailylisinopril 2.5 mg Tab 2.5 mg = 1 tab(s), Oral, Daily, # 30 tab(s), Refills(s) 5, Pharmacy: [facility]/pharmacy #[id number], 167, cm, 05/24/24 13:49:00 EDT, Height/Length Dosing, 110.8, kg, 05/24/24 13:49:00 EDT, Weight Dosing Start Date: 05/26/24 Status: Ordered Quantity: 30.0 Unit: tab(s) Repeat number: 6Start: 02-96-9068yudo 1 tablet by mouth once dailyLisinopril 2.5 MG Oral Tablet TAKE 1 TABLET DAILY. Quantity: 90 Refills: 3 Ordered: 19-Aug-2022 Aaron Ocampo MD Start : 30-Apr-2021 ActiveStart: 09-07-2019 End: 50-83-8771patg 1 tablet by mouth once dailyLisinopril 2.5 MG Oral Tablet TAKE 1 TABLET DAILY. Quantity: 90 Refills: 3 Ordered: 01-May-2021 Aaron Ocampo MD Start : 30-Apr-2021 ActiveStart: 06-06-2018 End: 63-48-8854zddf 2.5 mg by mouth once dailyLisinopril Discontinued 2.5 MG PO Daily June 14, 2018 12:00am August 31, 2019 4:38amloperamide hydrochloride 2 mg oral capsule (20 sources)Opioid AgonistStart: 92-37-0050xppm 1 capsule by mouth every four hours [...] ActiveLORazepam 0.5 mg oral tablet (20 sources)BenzodiazepineStart: 52-74-3411wnor 0.25 mg by mouth onceLORazepam 0.5 mg Tab 0.25 mg = 0.5 tab(s), Oral, Once, Refills(s) 0 Start Date: 11/25/22 Status: OrderedStart: 04-03-2020 End: 11-91-6297jeyv 0.5 mg by mouth at bedtimeLorazepam Active 0.5 MG PO Bedtime April 02, 2020 11:00pmStart: 08-31-2019 End: 47-80-9319jvjx 0.5 mg under the tongue every six hoursLorazepam Discontinued 0.5 MG SUBLINGUAL Q6H August 31, 2019 12:00am September 07, 2019 2:50pmStart: 06-14-2018 End: 71-74-4827ufif 0.5 mg by mouth every six hoursLorazepam Discontinued 0.5 MG PO Q6H 12 12June 14, 2018 12:00am August 24, 2018 4:09am24 hr metoprolol succinate 100 mg extended release oral tablet (4 sources)beta-Adrenergic BlockerStart: 81-85-6688pslt 1 tablet by mouth once dailyToprol XL 100 mg Tab-ER 100 mg = 1 tab(s), Oral, Daily, # 30 tab(s), Refills(s) 6, Pharmacy: [facility]/pharmacy #[id number], 167, cm, 08/24/24 13:40:00 EST, Height/Length Dosing, 111, kg, 08/24/24 13:46:00 EST, Weight Dosing Start Date: 08/24/24 Status: Ordered Quantity: 30.0 Unit: tab(s) Repeat number: 7Start: 04-59-0774colu 1 tablet by mouth every twenty-four hoursToprol XL 100 MG 24 hr tablet Take 150 mg by mouth 08/24/2024 ActivemetroNIDAZOLE 500 mg oral tablet (4 sources)Nitroimidazole AntimicrobialStart: 56-47-3818ytwp 1 tablet by mouth every eight hoursMetronidazole (Flagyl) 500 mg tablet Active 500 MG PO Q8H 12 02April 04, 2020 11:00pmStart: 11-19-2018 End: 97-52-3505javz 500 mg by mouth four times dailyMetronidazole Discontinued 500 MG PO Four times daily November 18, 2018 11:00pm July 04, 2019 4:17pm naloxone hydrochloride 40 mg/ml nasal spray (7 sources)Opioid AntagonistStart: 90-99-7565jibrjzda 4 mg/0.1 mL nasal liquid Use 1 [place] in one nostril (alternate sides) as needed for Drug Overdose every 2-3 mins. until help arrives. 2 Each 1 05/04/2021 Activeondansetron 4 mg disintegrating oral tablet (20 sources)Serotonin-3 Receptor AntagonistStart: 20-02-9387gbquvfowoyb ODT (Zofran-ODT) 4 MG disintegrating tablet Indications: Diverticulitis of intestine, part unspecified, with perforation and abscess without bleeding DISSOLVE 1 TABLET UNDER TONGUE ONCE ADAY AT THE SAME TIME EACH DAY 20 tablet 11/03/2024 ActiveStart: 29-11-5716mhfr 1 tablet by mouth every six hours as needed for nauseaondansetron 4 mg Dis Tab 4 mg = 1 tab(s), Oral, q6hr, PRN Nausea/Vomiting, # 12 tab(s), Refills(s) 0 Start Date: 11/25/22 Status: Ordered Quantity: 12.0 Unit: tab(s) Repeat number: 1Start: 11-19-2018 End: 93-20-6504nimy 1 tablet by mouth once dailyondansetron ODT [...] jr) CHEW oral chew tab (7 sources)Start: 96-11-0042nnqk 1 tablet by mouth once dailyPediatric Multivitamins-Iron (cerovite jr) CHEW oral chew tab Take 1 Tablet by mouth daily. 30 Tablet 2 10/20/2020 Activesennosides, half-way 8.6 mg oral tablet (7 sources)Start: 23-26-7995anqv 1 tablet by mouth at bedtimesenna (SENOKOT) 8.6 MG tablet Take 1 Tablet by mouth at bedtime. 30 Tablet 05/05/2021 Activesodium chloride 9 mg/ml inhalation solution (8 sources)Start: 52-10-8173hmbpmb chloride 0.9% Inh Noemy 3 mL Refill(s) 0 Start Date: 11/25/22 Status: OrderedStart: 69-93-3973aqqbiz chloride 0.9% Inh Noemy 3 mL Refill(s) 0 Start Date: 11/25/22 Status: OrderedStart: 92-19-9337sufm 1 mL by inhalation three times dailySodium Chloride Active 3 ML INHALATION Three times daily April 02, 2020 11:00pmspironolactone 25 mg oral tablet (20 sources)Aldosterone AntagonistStart: 79-83-0615tkeu 1 tablet by mouth once dailyspironolactone 25 mg Tab 25 mg = 1 tab(s), Oral, Daily, # 30 tab(s), Refills(s) 5, Pharmacy: [facility]/pharmacy #[id number], 167, cm, 05/24/24 13:49:00 EDT, Height/Length Dosing, 110.8, kg, 05/24/24 13:49:00 EDT, Weight Dosing Start Date: 05/26/24 Status: Ordered Quantity: 30.0 Unit: tab(s) Repeat number: 6Start: 34-93-0815cwky 1 tablet by mouth once dailySpironolactone (Aldactone) 25 mg tablet Active 25 MG PO Daily April 03, 2020 2:28pmStart: 09-07-2019 End: 37-33-8951zeht 25 mg by mouth twice dailySpironolactone Discontinued 25 MG PO Twice daily September 07, 2019 12:00am April 03, 2020 2:29pm Start: 06-14-2018 End: 07-52-9476vjru 25 mg by mouth once dailySpironolactone Discontinued 25 MG PO Daily June 14, 2018 12:00am August 31, 2019 4:38amStart: 06-06-2018 End: 81-76-9586uzzr 25 mg by mouth twice dailySpironolactone Discontinued 25 MG PO Twice daily 60 June 06, 2018 12:00am June 14, 2018 12:56pm Symbicort 160/4.5 inhalation aerosol with adapter (1 source)Start: 74-28-2183bhdu 2 puff(s) by inhalation twice dailySymbicort 160/4.5 inhalation aerosol with adapter 2 puff(s), Inhalation, BID, Refill(s) 0 Start Date: 11/25/22 Status: Vhwfhqi33 actuat tiotropium 0.0025 mg/actuat inhalation spray (20 sources)AnticholinergicStart: 67-59-1873xdol 2 puff(s) by inhalation once dailytiotropium (Spiriva Respimat) 2.5 MCG/ACT inhaler Indications: Chronic obstructive pulmonary disease, unspecified COPD type (HCC) Inhale 2 puffs 1 (one) time each day at the same time 3 each 3 03/07/2025 ActiveStart: 11-25-2022 Spiriva Respimat 60 ACT 2.5 mcg/inh inhalation aerosol Refills(s) 0 Start Date: 11/25/22 Status: OrderedStart: 70-40-2526gctc 2 puff(s) by mouth once daily Tiotropium Beverly (Spiriva Respimat) 2.5 mcg/actuation mist Active 2 PUFF INHALATION Daily April 02, 2020 11:00pm INHALE 2 PUFFS BY MOUTH EVERYDAY End: 57-33-7710Wtgzzst Respimat 2.5 MCG/ACT inhaler 1 (one) time each day at the same time. 03/07/2025 Discontinued (Reorder)Tiotropium [place] Monohydrate (Spiriva Respimat) 2.5 MCG/ACT AERS 2 puffs Activetake 2 puff(s) by inhalation once dailySpiriva Respimat 2.5 MCG/ACT Inhalation Aerosol Solution INHALE 2 PUFFS ONCE DAILY Quantity: 0 Refills: 0 Ordered: 07-Jul-2021 DO ActivetraZODone hydrochloride 50 mg oral tablet (10 sources)Serotonin Reuptake InhibitorStart: 76-67-1440wruj 1 tablet by mouth at bedtimetraZODone (Desyrel) 50 MG tablet Indications: Insomnia, unspecified type TAKE 1 TABLET BY MOUTH AT BEDTIME 30 tablet 02/21/2025 ActiveStart: 84-35-3533ahsqwpvjk Oral, Refills(s) 0 Start Date: 05/24/24 Status: Ordered Start: 01-17-2024 End: 41-17-1704vbok 1 tablet by mouth at bedtimetraZODONE 50 mg Tab TAKE 1 TABLET BY MOUTH AT BEDTIME Start Date: 12/01/24 Status: Ordered Repeat number: 1 Completed/Discontinued Medications MedicationDrug Class(es)DatesSig (Normalized)Sig (Original)acetaminophen 325 mg oral tablet (9 sources)Start: 06-14-2018 End: 28-26-2555ovop 650 mg by mouth every four hoursAcetaminophen [...] solution (2 sources)Anticholinergic, beta2-Adrenergic AgonistStart: 09-07-2019 End: 48-93-9789txcw 1 mL by inhalation four times dailyIpratropium-Albuterol Discontinued 3 ML INHALATION Four times daily - Respiratory 120 September 072019 12:00am April 03, 2020 2:28pmapixaban 5 mg oral tablet (4 sources)Factor Xa InhibitorStart: 09-07-2019 End: 85-48-5308vypg 1 tablet by mouth twice dailyApixaban (Eliquis) 5 mg Tablet Discontinued 5 MG PO Twice daily 60 September 07, 2019 12:00am April 03, 2020 2:28pmazithromycin 250 mg oral tablet (2 sources)Macrolide AntimicrobialStart: 01-12-2024 End: 40-00-0801olpl 2 tablets by mouth once daily, then take 1 tablet by mouth once dailyazithromycin (Zithromax) 250 MG tablet Indications: COPD with acute exacerbation (CMS/HCC) Take 2 tablets (500 mg) by mouth Daily for 1 day, THEN 1 tablet (250 mg) Daily for 4 days. 6 tablet 01/12/2024 01/17/2024 Discontinued (Therapy completed)bisacodyl 5 mg delayed release oral tablet (2 sources)Stimulant LaxativeStart: 08-24-2018 End: 86-45-6534otjs 5 mg by mouth once dailyBisacodyl Discontinued 5 MG PO Daily August 24, 2018 12:00am August 31, 2019 4:41amdocusate sodium 100 mg oral capsule (19 sources)Start: 08-31-2019 End: 15-99-2467xcwa 1 capsule by mouth twice dailyDocusate Sodium (Colace) 100 mg Capsule Discontinued 100 MG PO Twice daily August 31, 2019 12:00am September 07, 2019 2:50pm End: 26-21-7872Zmzsdbpq Sodium (DSS) 100 MG capsule 1 (one) time each day at the same time. 03/07/2025 Discontinueddoxycycline hyclate 100 mg oral capsule (2 sources)Tetracycline-class DrugStart: 07-26-2018 End: 91-08-6338zvlj 100 mg by mouth twice dailyDoxycycline Hyclate Discontinued 100 MG PO Twice daily 12 July 26, 2018 12:00am August 01, 2018 12:01am Ergocalciferol (2 sources)Provitamin D2 CompoundStart: 07-07-2019 End: 97-27-9510Oeplrmugkonlbc (Vitamin D2) Discontinued 48077 UNIT PO We@0900 7 July 07, 2019 12:00am August 31, 2019 4:41amStart: 07-07-2019 End: 31-87-0037Aqkdiohzvbeamh (Vitamin D2) Discontinued 72068 UNIT PO We@0900 7 July 07, 2019 1:00am August 31, 2019 5:02sk513 actuat fluticasone propionate 0.11 mg/actuat metered dose inhaler (11 sources)CorticosteroidStart: 07-04-2019 End: 66-98-7963cbkv 1 puff(s) by mouth twice dailyFluticasone Propionate (Flovent Hfa) 110 mcg/actuation HFA aerosol inhaler Discontinued 1 PUFF INHAL ATION Twice daily April 02, 2020 11:00pm April 04, 2020 1:46pm TAKE 1 PUFF BY MOUTH TWICE A DAYtake 1 puff(s) by mouth twice dailyfluticasone (FLOVENT HFA) 110 MCG/ACT inhaler Inhale 1 Puff by mouth 2 times daily. Active Owxuevxofgr-Ymtixfrod-Lkdkgk (Trelegy Ellipta) 200-62.5-25 MCG/ACT aerosol powder (5 sources)Start: 04-26-2024 End: 01-19-4956ktzh 1 puff(s) by inhalation once daily Izxklmhnhhu-Zpszzscvi-Elofuu (Trelegy Ellipta) 200-62.5-25 MCG/ACT aerosol powder Indications: Chronic obstructive pulmonary disease, unspecified COPD type (HCC) Inhale 1 puff Daily 1 each 5 04/26/2024 03/07/2025 DiscontinuedStart: 99-17-1203qexu 1 puff(s) by inhalation once mefuiWxcaajqbsxf-Lcvmmsulo-Wnnnzx (Trelegy Ellipta) 200-62.5-25 MCG/ACT aerosol powder Indications: Chronic obstructive pulmonary disease, unspecified COPD type (HCC) Inhale 1 puff Daily 1 each 5 04/26/2024 ActiveStart: 33-83-6461yupl 1 puff(s) by inhalation once uwiyiEclqkkwnzmx-Riilwekqq-Czqalp (Trelegy Ellipta) 200-62.5-25 MCG/ACT aerosol powder Indications: Chronic obstructive pulmonary disease, unspecified COPD type (CMS/HCC) Inhale 1 puff Daily 1 each 5 04/26/2024 Azvqbr54 hr guaiFENesin 600 mg extended release oral tablet (6 sources)Start: 07-07-2019 End: 59-80-4545wrxk 2 tablets by mouth twice daily, then take 1 tablet by mouth every twelve hoursGuaifenesin (Mucinex) 600 mg Tablet Extended Release 12hr Discontinued 1200 MG PO Twice daily 20 July 07, 2019 12:00am August 31, 2019 4:41amStart: 08-18-2018 End: 00-04-4043mxwm 1200 mg by mouth every twelve hoursGuaifenesin Discontinued 1200 MG PO Q12H 05 02August 18, 2018 12:00am August 25, 2018 12:02amStart: 07-26-2018 End: 33-24-6183inzm 1 tablet by mouth every twelve hours, then take 1 tablet by mouth every twelve hoursGuaifenesin (Mucinex) 600 mg tablet extended release 12hr Discontinued 600 MG PO Q12H July 26, 2018 12:00August 18, 2018 12:36pmhydrOXYzine pamoate 25 mg oral capsule (2 sources)AntihistamineStart: 06-06-2018 End: 12-40-6935kjhc 25 mg by mouth every six hoursHydroxyzine Pamoate Discontinued 25 MG PO Q6H June 06, 2018 12:00am June 14, 2018 12: 53pmipratropium bromide 0.2 mg/ml inhalation solution (2 sources)AnticholinergicStart: 07-26-2018 End: 79-22-6524vzrm 1 mL by inhalation every eight hoursIpratropium Beverly Discontinued 1.25 ML INHALATION Q8H July 26, 2018 12:00am August 31 4:41ammethylPREDNISolone 4 mg oral tablet (2 sources)CorticosteroidStart: 07-07-2019 End: 88-12-0694mqad 1 tablet by mouth onceMethylprednisolone (Medrol (Blue)) 4 mg tablets,dose pack Discontinued 0 PO .COMPLEX July 07, 2019 12:00am August 31, 2019 4:41am orally per package directionsmicroencapsulated potassium chloride 20 meq extended release oral tablet (20 sources)Start: 89-90-8128emky 1 tablet by mouth once dailyKlor-Con M20 oral tablet, extended release 20 mEq = 1 tab(s), Oral, Daily, # 30 tab(s), Refills(s) 0 Start Date: 11/25/22 Status: Ordered Quantity: 30.0 Unit: tab(s) Repeat number: 1Start: 66-62-4803axzo 2 tablets by mouth once dailyKlor-Con M20 20 MEQ Oral Tablet Extended Release TAKE 2 TABLETS BY MOUTH DAILY Quantity: 60 Refills: 0 Ordered: 18-Aug-2022 Aaron Sanz DO Start : 27-Apr-2021 ActiveStart: 19-19-6599txml 2 tablets by mouth once dailyKlor-Con M20 20 MEQ Oral Tablet Extended Release TAKE 2 TABLETS BY MOUTH DAILY Quantity: 180 Refills: 3 Ordered: 22-Jul-2021 Paty Gage Start : 27-Apr-2021 ActiveStart: 37-01-2992ffqv 2 tablets by mouth once dailyKlor-Con M20 20 MEQ Oral Tablet Extended Release TAKE 2 TABLETS BY MOUTH DAILY Quantity: 60 Refills: 0 Ordered: 17-Jun-2021 Aaron Sanz DO Start : 27-Apr-2021 ActiveStart: 79-21-5856grde 2 tablets by mouth once dailyPotassium Chloride (Klor-Con M20) 20 mEq tablet,ER particles/crystals Active 40 MEQ PO Daily April 02, 2020 11:00pm TAKE 2 TABLETS BY MOUTH DAILYStart: 10-10-2018 End: 94-39-2172Aazlpxwzx Chloride (K-Tab) 20 mEq Tablet Extended Release Discontinued 40 mEq/day PO Daily October 09, 2018 11:00pm September 07, 2019 2:50pmStart: 06-14-2018 End: 33-79-4156Vkbyaxnsp Chloride (Klor-Con M20) 20 mEq Tablet,Er Particles/Crystals Discontinued 40 MEQ PO Daily 60 June 14, 2018 12:00am August 25, 2018 10:11amprednisoLONE 10 mg disintegrating oral tablet (2 sources)CorticosteroidStart: 07-26-2018 End: 03-39-6357Nsoojzmtthrf Sodium Phosphate Discontinued 10 MG PO As Directed July 26, 2018 12:00am August 17, 2018 2:04pm 40 mg for 3 days, 30 mg for 3 days, 20 mg for 3 days, 10 mg for 3 days then stoppredniSONE 10 mg oral tablet (20 sources)Start: 06-04-2024 End: 81-93-1019gtomdoMVEQ (Deltasone) 10 MG tablet PLEASE SEE ATTACHED FOR DETAILED DIRECTIONS 06/04/2024 03/07/2025 DiscontinuedStart: 01-12-2024 End: 16-84-0540gtve 1 tablet by mouth three times daily, [...] 2 days. 21 tablet 01/12/2024 01/21/2024 ExpiredStart: 53-87-5579lkvx 60 mg by mouth once daily at mealtimePrednisone Active 60 MG PO Daily November 27, 2020 11:00pm administer with food or milkStart: 51-98-8608zdoh 40 mg by mouth once dailyPrednisone Active 40 MG PO Daily 10 April 04, 2020 11:00pmStart: 09-07-2019 End: 68-72-1509Flaqzgatqg Discontinued 10 MG PO Daily September 07, 2019 12:00am April 03, 2020 2:29pm 40mg for 2 days, 30 mg for 2 days, 20 mg for 2 days, 10 mg for 2 days then stopStart: 10-11-2018 End: 20-58-2011Erjfautpyg Discontinued 10 MG PO Daily October 10, 2018 11:00pm November 19, 2018 5:52pm take 60mg (6 tabs aday) for 3 days, then 40mg (4tabs) for 3 days, then 20mg (2tabs) for 3 days, then 10mg (1tab) for 3 days. Start: 08-18-2018 End: 99-04-2576Aphflhlijf Discontinued 10 MG PO Daily August 18, 2018 12:00am August 25, 2018 10:11am take 40mg (4tabs) for 3 days, then 20mg (2tabs) for 3 days, then 10mg (1tab) for 3 days.Start: 07-26-2018 End: 85-26-4501Njmlpocpan Discontinued 10 MG PO As Directed July 26, 2018 12:00am August 17, 2018 2:04pm40 mg for 3 days, 30 mg for 3 days, 20 mg for 3 days then 10 mg for 3 days then stopStart: 06-06-2018 End: 65-59-9797fmio 10 mg by mouth once daily for chronic obstructive pulmonary diseasePrednisone Discontinued 10 MG PO Daily June 06, 2018 12:00am June 14, 2018 12:55pm please start on 06/11/2018 after finished 20 mg prednisone. For COPDStart: 06-06-2018 End: 11-33-7587svfj 20 mg by mouth once dailyPrednisone Discontinued 20 MG PO Daily 4 June 06, 2018 12:00am June 14, 2018 12:53pmticagrelor 90 mg oral tablet (8 sources)Start: 06-06-2018 End: 83-49-4410miae 1 tablet by mouth twice dailyTicagrelor (Brilinta) 90 mg Tablet Discontinued 90 MG PO Twice daily 60 June 14, 2018 12:00am July 26, 2018 3:36pm Problems Active Problems Problem ClassificationProblemDateDocumented DateEpisodic/ChronicAcute bronchitis (2 sources)Acute bronchitis; Translations: [Acute bronchitis, unspecified] 69-98-0571QureznhwOqnjh cerebrovascular disease (9 sources)Cerebral infarction; Translations: [Cerebral infarction, unspecified] Onset: 926175-98-5766WxezzjgIvzagukclaoxgm/social admission (2 sources)Other reduced mobility; Translations: [Impaired mobility and activities of daily living]98-39-3496YmbixekbVyjphzd disorders (20 sources)Anxiety; Translations: [Anxiety disorder, unspecified]Onset: 168660-78-1608GdrgkdgQhgrsbpom and vision defects (2 sources)Eye / vision finding; Translations: [Unspecified visual disturbance] 65-41-3355AwltzxxlXnhvnst dysrhythmias (20 sources)Cardiac arrhythmia, unspecified; Translations: [Ventricular tachycardia]Onset: 886868-95-0692AtgpzreBnksgnb obstructive pulmonary disease and bronchiectasis (20 sources)Chronic obstructive pulmonary disease, unspecified; Translations: [Chronic obstructive lung disease]Onset: 10-13-2018 Resolved: 208121-62-6874VvdrfaiYfegfknbep disorders (20 sources)Patient encounter status; Translations: [Fitting and adjustment of automatic implantable cardiac defibrillator]Onset: 05-06-2022 Resolved: 54-00-3912VsovwugBixqzocbhz heart failure; nonhypertensive (20 sources)Heart failure, unspecified; Translations: [Heart failure with reduced ejection fraction]Onset: 08-26-2018 Resolved: 113330-61-0852EhwqkdwQqqjulpx atherosclerosis and other heart disease (20 sources)Ischemic cardiomyopathy; Translations: [Atherosclerotic heart disease of rosebud coronary artery without angina pectoris]Onset: 10-13-2018 Resolved: 122661-91-3150ZdhudltYpcaucbo atherosclerosis and other heart disease (2 sources)Coronary angioplasty status; Translations: [Coronary angioplasty status]Onset: 49-34-1134FkhzpuhpRcckbepl mellitus without complication (2 sources)Impaired fasting glycemia; Translations: [Impaired fasting glucose] 39-12-5353RunujsqmGhxmnloxr of lipid metabolism (12 sources)Hyperlipidemia; Translations: [Hyperlipidemia, unspecified]Onset: 603226-71-6877ZckmydgKispnaqkeezzst and diverticulitis (20 sources)Diverticulitis of large intestine; Translations: [Diverticulitis of large intestine with perforation and abscess without bleeding]Onset: 11-20-2018 Resolved: 159319-43-1761LgcfiqmIpdyjwurx hypertension (20 sources)Essential (primary) hypertension; Translations: [Benign essential hypertension]Onset: 369214-47-8390XmucjypBejis valve disorders (9 sources)Mitral valve disorder; Translations: [Other nonrheumatic mitral valve disorders]Onset: 284696-12-1521HaiisneZwjafkombybr with complications and secondary hypertension (1 source)Hypertensive heart disease with heart failureOnset: 00-40-5311Pqcnloz Late effects of cerebrovascular disease (9 sources)Hemiparesis as late effect of cerebrovascular disease; Translations: [Hemiplegia and hemiparesis following unspecified cerebrovascular disease affecting right dominant side]Onset: 769952-10-4765ObfbhcnHvdornbcuhf chest pain (4 sources)Chest pain; Translations: [Chest pain, unspecified]30-94-5378Tkhqndye Other aftercare (20 sources)Drug therapy finding; Translations: [Long-term (current) use of other medications]EpisodicOther gastrointestinal disorders (12 sources)Ileostomy present; Translations: [Encounter for attention to ileostomy]Onset: 670784-58-0992UihqaqyEwzbx gastrointestinal disorders (18 sources)Colostomy present; Translations: [Encounter for attention to colostomy]Onset: 12-12-2019 Resolved: 467080-64-9936AbicycvDhndz gastrointestinal disorders (1 source)Colostomy status; Translations: [COLOSTOMY STATUS]Onset: 08-01-2021 ChronicOther gastrointestinal disorders (1 source)Ileostomy status; Translations: [Ileostomy status (HCC)]Onset: 97-41-7789PfewzbiPdnbj hematologic conditions (2 sources)Raised cardiac enzyme or marker; Translations: [Other specified abnormalities of plasma proteins]41-84-3421VwiklheuDbtqy lower respiratory disease (2 sources)Pulmonary edema; Translations: [Chronic pulmonary edema]07-04-2019 ChronicOther nervous system disorders (9 sources)Aphasia; Translations: [Aphasia]Onset: 645760-30-8469Dxwxybs Other nervous system disorders (9 sources)Cognitive deficit in communication skills; Translations: [Cognitive communication deficit]Onset: 896270-39-6551FybjwdpZjdab nervous system disorders (9 sources)Difficulty walking; Translations: [Difficulty in walking, not elsewhere classified]Onset: 974568-87-3488GcracagHygee nutritional; endocrine; and metabolic disorders (1 source)Obesity, unspecifiedOnset: 43-82-9799SnyvyglNsrxs nutritional; endocrine; and metabolic disorders (3 sources)Body mass index 30+ - obesity; Translations: [Body Mass Index 34.0- 34.9, adult]ChronicOther nutritional; endocrine; and metabolic disorders (20 sources)Obesity; Translations: [Obesity, unspecified]Onset: 03-25-2020 36-49-9915BxxcuqxYktwp nutritional; endocrine; and metabolic disorders (1 source)Morbid (severe) obesity due to excess calories; Translations: [MORBID SEVERE OBES D/T EXCESS NEHA]Onset: 46-17-8217GvijnleEwsfe nutritional; endocrine; and metabolic disorders (1 source)Body mass index (BMI) 32.0-32.9, adult; Translations: [BODY MASS INDEX BMI 32.0-32.9 ADULT]Onset: 87-68-2219UxkvoavMtyyi nutritional; endocrine; and metabolic disorders (12 sources)Obesity caused by energy imbalance; Translations: [Other obesity due to excess calories]Onset: 733337-92-3848GzgwxwsEbmh-; endo-; and myocarditis; cardiomyopathy (except that caused by tuberculosis or sexually transmitted disease) (11 sources)Cardiomyopathy; Translations: [Cardiomyopathy, unspecified]Onset: 045639-16-3802GmcjllfBhgywxbo codes; unclassified (11 sources)Sleep apnea; Translations: [Sleep apnea, unspecified]Onset: 681327-42-2397FefhmpyFhskzksa codes; unclassified (1 source)Obstructive sleep apnea (adult)(pediatric); Translations: [Obstructive sleep apnea (adult) (pediatric)]Onset: 32-58-4917CpuqnktWuwlbuwz codes; unclassified (1 source)Hypersomnia; Translations: [Hypersomnia, unspecified]67-98-5256Lryqpwb Residual codes; unclassified (9 sources)Nicotine-filled electronic cigarette user; Translations: [Tobacco use disorder]EpisodicComment on above:one electronic device a week;Residual codes; unclassified (2 sources)Patient encounter status; Translations: [Encounter for prophylactic measures, unspecified]22-01-8529GjunqzdmTfajxnmcxrh failure; insufficiency; arrest (adult) (2 sources)Npzvu-im-dmlmmyw respiratory failure; Translations: [Acute and chronic respiratory failure with hypoxia]62-84-7150YoiyhmyWjkbrzgje-related disorders (16 sources)Smoker; Translations: [Nicotine dependence, unspecified, uncomplicated]Onset: 08-01-2021 Resolved: 598287-94-7358CscnjntFqnvqlr disorders (20 sources)Hypothyroidism; Translations: [Unspecified acquired hypothyroidism] Onset: 03-25-2020 Resolved: 554689-84-4118RkkmnfyBljgtaqprsvj (3 sources)Cardiomyopathy, unspecified; Translations: [Cardiomyopathy, unspecified]Onset: 99-08-8516Vvmvyasobfes (1 source)Encntr for adjust and mgmt of automatic implntbl card defibOnset: 88-81-5193Orutrcibqfee (1 source)Family hx of ischem heart dis and oth dis of the circ sysOnset: 50-65-7906Utjvvwtrrnhu (1 source)CONTACT W/AND (SUSP) EXPOS COVID-19; Translations: [CONTACT W/AND (SUSP) EXPOS COVID-19]Onset: 08-01-2021 Past or Other Problems Problem ClassificationProblemDateDocumented DateEpisodic/ChronicAcute myocardial infarction (9 sources)Myocardial infarction; Translations: [Non-ST elevation (NSTEMI) myocardial infarction]Onset: 06-27-2024 Resolved: 173111-67-0212UvngownDttlmuorblrle of surgical procedures or medical care (14 sources)Colostomy malfunction; Translations: [Colostomy malfunction]Onset: 06-14-2020 Resolved: 245886-84-4631VkrkgfcZctevrasqzuwp of surgical procedures or medical care (16 sources)Drug-induced hypotension; Translations: [Hypotension due to drugs] Onset: 979653-60-0378LzvavlkqRbmnygnckz associated with dizziness or vertigo (20 sources)Dizziness; Translations: [Dizziness and giddiness]Onset: 01-11-2024 Resolved: 414794-04-0515ZoeurutyItbly and electrolyte disorders (11 sources)Hyponatremia; Translations: [Hypo-osmolality and hyponatremia]Onset: 01-17-2024 Resolved: 178565-63-7566MdkodqigZjhscqdnkumuxfec hemorrhage (16 sources)Lower gastrointestinal hemorrhage; Translations: [Gastrointestinal hemorrhage, unspecified]Onset: 859545-43-5077GsbsmhrjZrhsnxs (16 sources)Candidiasis of mouth; Translations: [Candidal stomatitis]Onset: 410278-24-5112PmqwecqhNzfpqwmckottf gastroenteritis (16 sources)Colitis; Translations: [Noninfective gastroenteritis and colitis, unspecified]Onset: 783817-31-0204GlemnaddUlujvsajjap deficiencies (6 sources)Vitamin D deficiency, unspecified; Translations: [Vitamin D deficiency]Onset: 06-08-2022 Resolved: 031297-59-1317KblxucxLxnbn aftercare (1 source)FCI (current) use of aspirin; Translations: [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]Onset: 20-52-7767AquychorNfpvb aftercare (1 source)Other 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 (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) drug therapy; Translations: [OTH USP CURRENT DRUG THERAPY]Onset: 89-59-5972AymwgjxqHphnj circulatory disease (1 source)Personal history of sudden cardiac arrest; Translations: [PERSONAL HISTORY SUDDEN CARD ARREST]Onset: 92-47-3701BwbhetrjNfqem connective tissue disease (11 sources)Muscle weakness; Translations: [Muscle weakness (generalized)]Onset: 876566-36-8827KwidyxbgZcncd gastrointestinal disorders (15 sources)Intra-abdominal collection; Translations: [Other ascites]Onset: 486439-10-6823ShnljisfLdejt gastrointestinal disorders (1 source)Abdominal mass; Translations: [Other ascites]Onset: 08-18-2019 53-98-7028QezbcqwyZzlic lower respiratory disease (11 sources)Dyspnea; Translations: [Shortness of breath]Onset: 09-07-2019 63-02-9200SfepjaibVkttb nervous system disorders (5 sources)Bilateral carpal tunnel syndrome; Translations: [Carpal tunnel syndrome, bilateral upper limbs]Onset: 06-27-2024 Resolved: 582260-11-4103LheggtqVntzy screening for suspected conditions (not mental disorders or infectious disease) (16 sources)Prolonged QT interval; Translations: [Abnormal electrocardiogram [ECG] [EKG]]Onset: 281544-21-0233AtaipbheZwtqk upper respiratory disease (11 sources)Bronchospasm; Translations: [Acute bronchospasm]Onset: 01-17-2024 21-79-6915UyabwpumZjwbhnaip; thrombophlebitis and thromboembolism (11 sources)Deep venous thrombosis of lower extremity; Translations: [Acute embolism and thrombosis of unspecified deep veins of right lower extremity] Onset: 727619-26-2505EtnyvhrrVzxesbbev (except that caused by tuberculosis or sexually transmitted disease) (9 sources)Pneumonia; Translations: [Pneumonia, unspecified organism]Onset: 356285-39-7613AmdqngkkIhcofelbe heart disease (20 sources)H/O: pulmonary embolus; Translations: [Personal history of pulmonary embolism]Onset: 09-07-2019 Resolved: 887101-12-2944SibmypmtIoopuuzq codes; unclassified (5 sources)Obstructive sleep apnea syndrome; Translations: [Obstructive sleep apnea (adult) (pediatric)]Onset: 06-27-2024 Resolved: 116821-09-4583LvqnlncGoqtnohh codes; unclassified (17 sources)History of closure of colostomy; Translations: [Other specified postprocedural states]Onset: 175768-01-5946KoaonhooGewavjeg codes; unclassified (11 sources)History of partial resection of colon; Translations: [Acquired absence of other specified parts of digestive tract]Onset: EpisodicResidual codes; unclassified (1 source)Other amnesia; Translations: [Other amnesia]Onset: 25-57-2665Audehccj Residual codes; unclassified (11 sources)Tobacco user; Translations: [Tobacco use]Onset: 06-27-2024 Resolved: 499150-38-4810YibzwbrbSibfaxiv codes; unclassified (5 sources)Insomnia; Translations: [Insomnia, unspecified]Onset: 06-27-2024 Resolved: 119704-10-9474QljnkypkYewqsycz codes; unclassified (5 sources)Memory impairment; Translations: [Other amnesia]Onset: 06-27-2024 Resolved: 144203-10-9692ZhwldrpeKvbqxcamrkz failure; insufficiency; arrest (adult) (20 sources)Hypoxemic respiratory failure; Translations: [Respiratory failure, unspecified with hypoxia]Onset: 090907-28-1923BueggvcjFauwjcnse and history of mental health and substance abuse codes (20 sources)Personal history of nicotine dependence; Translations: [Ex-smoker] Onset: 861896-64-8534WznjyijwEgtncoh on above:QUIT 2017 07 PPD;quit 05/26/2021;Skin and subcutaneous tissue infections (20 sources)Abscess of abdominal wall; Translations: [Cutaneous abscess of abdominal wall]Onset: 208534-46-1919EyoriqtbQjktwmd (11 sources)Syncope; Translations: [Syncope and collapse]Onset: 01-17-2024 Resolved: 198331-18-4305DbandymhHbvjchhkujti (5 sources)Smoker; Translations: [Smoking]Onset: 01-17-2024 Resolved: 800460-22-4595 Results Test NameValueInterpretationReference RangeFacilityHeart and Vascular Office/Clinic Noteon 64-07-8993Dwkrg and Vascular Office/Clinic NoteHeart and Vascular Office/Clinic [...] Mild diffuse disease L (more content not included)...[facility]:Result Comment: Electronically Signed By: Elizabeth LACEY, Juan Francisco Nam\barby\Date and Time Signed: 05/24/25 14:47 EDTHeart and Vascular Office/Clinic Noteon 58-61-2029Jtcyb and Vascular Office/Clinic NoteHeart and Vascular Office/Clinic [...] previously placed stent in (more content not included)...[facility] HospitalComment on above:Result Comment: Electronically Signed By: [...] note The patient was heparinized. A 6 [place] JR4 guiding catheter was used. Right coronary artery was engaged. Intracoronary nitroglycerin was administered. Pressure wire was advanced to the proximal RCA,and after performance of advanced normalization, advanced to the distal RCA with no technical difficulties. iFR was assessed at 0.95, consistent with fu (more content not included)... [facility] HospitalComment on above:Result Comment: Electronically Signed By: Elizabeth LACEY, Juan Francisco Nam\.br\Date and Time Signed: 12/04/24 10:03 EDT Heart and Vascular Office/Clinic Noteon 28-51-1396Tdxjg and Vascular Office/Clinic NoteHeart and Vascular Office/Clinic [...] (06/20/2024 15:19 EST Echo Transthoracic w/ Contrast) [place] [address] Adult Echocardiogram Report Name: ELICEO KENNY Study Date: 06/20/2024 02:24 PM BP: 139/88 mmHg Patient [place] [facility] [place] [facility] [place]: 87 : 1965 Gender: Male Height: [...] catheterization procedure report DATE OF PROCEDURE: 08/01/2024 DAY SPA MANAGER Blanco Lazcano MD [facility] INDICATION: New onset cardiomyopathy, history of [...] patient was brought to the Adult Cardiac Chemical Applicator and placed on the table. The planned puncture sites/areas were prepped and draped in usual sterile fashion and a safety time-out was performed. Moderate Sedation was given by the Cardiac Chemical Applicator RN. RIGHT RADIAL ARTERY ACCESS: The puncture site was infiltrated with 1% lidocaine. The modified Seldinger technique was performed to access the right radial artery using (more content not included)...[facility] Comment on above:Result Comment: Electronically Signed By: Jaleesa SOLIS, Blanco [place]\.br\Date and Time Signed: 08/24/24 14:00 ESTCB w/Indiceson 08-01-2024 Erythrocyte distribution width (RBC) [Ratio]13.7 %Jzfvia61.9-14.2FKettering Health SpringfieldComment on above:Order Comment: if not completed in last 30 days Performed By: #### [id number] #### [facility] [address], [place] [address]Glrhaedqgw (Bld) [Volume fraction]44.2 %Xbzxin26.7-49.0[facility] HospitalComment on above:Order Comment: if not completed in last 30 daysPerformed By: #### [id number] #### [facility] [address], [place] [address]Qqzmwwsiwj (Bld) [Mass/Vol]15.7 g/uHBckqbu85.5-17.5FKettering Health SpringfieldComment on above:Order Comment: if not completed in last 30 days Performed By: #### [id number] #### [facility] [address] [place] [address] [id number] (RBC) [Entitic mass]34.7 faOsgd68.0-34.0[facility] HospitalComment on above:Order Comment: if not completed in last 30 days Performed By: #### [id number] #### [facility] [address] [place] [address] 610[address]OBZT (RBC) [Mass/Vol]35.5 g/rCKkcdhm83.4-36.0[facility] HospitalComment on above:Order Comment: if not completed in last 30 days Performed By: #### [id number] #### [facility] [address] [place] [address] [id number] (RBC) [Entitic vol]97.6 zGRbghva57.0-100.0[facility] HospitalComment on above:Order Comment: if not completed in last 30 days Performed By: #### [id number] #### [facility] [address] [place] [address] 430[address]Bucevkln578.0 E9/IKfyamp048.0-500.0[facility] Comment on above:Order Comment: if not completed in last 30 daysPerformed By: #### [id number] #### [facility] [address] [place] [address] 74[address]Jqlvonvj mean volume (Bld) [Entitic vol]7.4 fLNormal6.4-10.8 [facility] HospitalComment on above:Order Comment: if not completed in last 30 daysPerformed By: #### [id number] #### [facility] [address] [place] [address] [id number] (Bld) [#/Vol]4.5 E12/LNormal4.3-5.9[facility] HospitalComment on above:Order Comment: if not completed in last 30 daysPerformed By: #### [id number] #### [facility] [address], [place] [address]ZCU size Nom (Bld)NORMALInvalid Interpretation CodeFlower HospitalComment on above:Order Comment: if not completed in last 30 days Performed By: #### [id number] #### [facility] [address] [place], [place] [address]XYP corrected for nucl RBC Auto (Bld) [#/Vol]8.0 E9/LNormal 4.0-11.0[facility] HospitalComment on above:Order Comment: if not completed in last 30 daysPerformed By: #### [id number] #### [facility] [address] [place] [address] [id number] Instructionson 90-04-1278Radtiuytf Instructions Discharge Instructions ZOYAELICEO :1965 Visit Date:08/01/2024 [...] Lazcano When: 08/24/2024 02:45 PM EST Where: [address] [place], [place] [phone] Business (1) Medications What How Much When [...] MRI compatible. Implanted PC (more content not included)...NormalFlower HospitalComment on above:Result Comment: Electronically Signed By: Mustapha BARAJAS, Sangeeta Nam\.jesus\Date and Time Signed: 08/01/24 11:20 ESTHEMATOLOGYOrdered By: SYSTEM SYSTEM on 08-01-2024 Erythrocyte distribution width (RBC) [Ratio]13.7 %Iqxjzn76.9 - 14.2 %Remisol HemeHematocrit (Bld) [Volume fraction]44.2 %Gtytjc06.7 - 49.0 %Remisol Heme Hemoglobin (Bld) [Mass/Vol]15.7 g/bKCuvemg63.5 - 17.5 gm/dLRemisol HemeMCH (RBC) [Entitic mass]34.7 zvBwev59.0 - 34.0 pgRemisol HemeMCHC (RBC) [Mass/Vol]35.5 g/lYPbzola51.4 - 36.0 gm/dLRemisol HemeMCV (RBC) [Entitic vol]97.6 kKPmzqcl66.0 - 100.0 fLRemisol GfkeYjamboao130.0 E9/FVnhtmm611.0 - 500.0 E9/LRemisol Heme Platelet mean volume (Bld) [Entitic vol]7.4 fLNormal6.4 - 10.8 fLRemisol HemeRBC (Bld) [#/Vol]4.5 E12/LNormal4.3 - 5.9 E12/LRemisol HemeRBC size Nom (Bld)NORMAL *NA* (08/01/24 7:30 AM)Invalid Interpretation CodeRemisol HemeWBC corrected for nucl RBC Auto (Bld) [#/Vol]8.0 E9/LNormal4.0 - 11.0 E9/LRemisol HemeInpatient Clinical Summaryon 64-48-5660Npnqzxmfd Clinical SummaryInpatient Clinical Summary [address] [address] Clinical Summary Person Information: Name: ELICEO KENNY Age: 58 Years : 1965 Sex: Male PCP: AMBER CUELLAR DO Marital Status: Single Race: White Ethnicity: Non- or Language: French Visit Id: Visit Reason: R93.1 I25.10 I42.9 Speciality: Acuity: Enc Type: Ambulatory/Same Day Surgery Med Service: Surgery Arrival: 08/01/2024 06:51:42 Discharge: Dispo Type: Address: Miguel HUGHES JAS[facility] [id number] Provider Notes: Diagnosis: Problems No Problems Documented [...] Follow up: With: Address: When: Blanco Lazcano [address] [place], [place] [id number] [phone] Business (1) 08/24/2024 2:45 PM Type Location Start [facility] Cardiology Follow Up (FT) FT.Cardiology Clinic 08/24/2024 2:45 PM 08/24/2024 3:00 PM Confirmed Patient Education Information: CV - Cardiovascular PCI Discharge Instructions (CUSTOM)[facility] HospitalIn[facility] Patient Summaryon 17-08-6993Llocyttkb Patient Summary Inpatient Patient Summary [address] [address] Patient Discharge Instructions PERSON INFORMATION Name: ELICEO KENNY Date of : 1965 Current Date: 08/01/2024 11:19:30 PHYSICIANS Admitting Physician: Blanco Lazcano MD Primary Care Physician: AMBER CUELLAR DO PCP Phone Number: [phone] Comment: Discharge Diagnosis: Condition at Discharge: Improved [...] Follow up: With: Address: When: Bl[place] [address] [phone] Business (1) 08/24/2024 2:45 PM In the event that this physician does not participate in your insurance network, please consult with your insurance company to find a nearby participating provider. Type Location Start [facility] Cardiology Follow Up (FT) FT.Cardiology Clinic 08/24/2024 [...] Dose: Comment: MEDICATION L (more content not included)...NormalFlower HospitalBMP on 05-54-0597Keihc gap [Moles/Vol]13 mmol/LNormal6-16[facility] Comment on above:Performed By: #### [id number] #### [facility] [address] [place], [place] [address]Sschgkx [Mass/Vol]9.6 mg/dLNormal8.9-11.1FKettering Health SpringfieldComment on above:Performed By: #### [id number] #### [facility] [address] [place], [place] [address]Rcpvyseo [Moles/Vol]103 mmol/RScbgjf607-576QzwivbFlower HospitalComment on above:Performed By: #### [id number] #### [facility] [address] [place], [place] [address]EY7 [Moles/Vol]24 mmol/KSmfpbq85-42JotjbvFlower Hospital Comment on above:Performed By: #### [id number] #### [facility] [address] [place], [place] [address]Jemihhyvhp [Mass/Vol]0.7 mg/dLNormal0.5-1.3FKettering Health SpringfieldComment on above:Performed By: #### [id number] #### [facility] [address] [place], [place] [address]Tgvkudp [Mass/Vol]120 mg/jCEfgnmv84-554IjzvpkFlower HospitalComment on above:Performed By: #### [id number] #### [facility] [address] [place], [place] [address]Uhzftcrii [Moles/Vol]4.2 mmol/LNormal3.5-5.3FKettering Health SpringfieldComment on above:Performed By: #### [id number] #### [facility] [address] [place], [place] [address]Mmuzeg [Moles/Vol]136 mmol/KBagohx103-315ImddulFlower HospitalComment on above:Performed By: #### [id number] #### [facility] [address] [place], [place] [address]Yviv nitrogen [Mass/Vol]11 mg/dLNormal5-21Flower HospitalComment on above:Performed By: #### [id number] #### [facility] [address] [place], [place] [address]Wwtd nitrogen/Creatinine [Mass ratio]16 No HdxknZaczcd94-18 Flower HospitalComment on above:Performed By: #### [id number] #### [facility] [address] [place], [place] [address]VATcl 13-62-2280Tnfnqdfbglk peptide B (Bld) [Mass/Vol]12 pg/mL Normal5-80Flower HospitalComment on above:Performed By: #### [id number] #### [facility] [address] [place], [place] [address]RZRCHUZCYAdfurjw By: SYSTEM SYSTEM on 63-67-5354Kvrjx gap [Moles/Vol]13 mmol/LNormal6 - 16 mEq/LRemisol ChemCalcium [Mass/Vol]9.6 mg/dL Normal8.9 - 11.1 mg/dLRemisol ChemChloride [Moles/Vol]103 mmol/OZwhwzc776 - 111 mmol/LRemisol ChemCholesterol [Mass/Vol]217 mg/xPXlfi951 - 200 mg/dLRemisol Chem Cholesterol in HDL [Mass/Vol]54 mg/dLInvalid Interpretation CodeRemisol Chem Comment on above:Result Comment: '>= 60 LOW RISK' '<= 40 HIGH RISK'Cholesterol in LDL [Mass/Vol]107 mg/dLNormal<=129mg/dLRemisol ChemCholesterol in VLDL [Mass/Vol]77 mg/dLHigh7 - 40 mg/dLRemisol ChemCO2 [Moles/Vol]24 mmol/ZQcppbw46 - 31 mmol/LRemisol ChemCreatinine [Mass/Vol]0.7 mg/dLNormal0.5 - 1.3 mg/dLRemisol EurkdPJQ005 mL/min/1.73 c4Slgmru >=59mL/min/1.73 h4Wuyxars ChemGlucose [Mass/Vol]120 mg/jDWeyfvp14 - 199 mg/dL Remisol ChemPotassium [Moles/Vol]4.2 mmol/LNormal3.5 - 5.3 mmol/LRemisol Chem Sodium [Moles/Vol]136 mmol/PZgknxq793 - 145 mmol/LRemisol ChemTriglyceride [Mass/Vol]384 mg/dLHigh<=149mg/dLRemisol ChemUrea nitrogen [Mass/Vol]11 mg/dL Normal5 - 21 mg/dLRemisol ChemUrea nitrogen/Creatinine [Mass ratio]16 mg/mg Hbzmpn52 - 20Remisol ChemCHEMISTRYOrdered By: Yudy Aldrich on 07-24-2024 Natriuretic peptide B (Bld) [Mass/Vol]12 pg/mLNormal5 - 80 pg/mLNov[facility] Lipid Panelon 38-14-4595Mkovzkengyu [Mass/Vol]217 mg/rYMdxd331-830UdalhoFlower HospitalComment on above:Performed By: #### [id number] #### [facility] [address] [place], [place] [address]Scfkyedzjtt in HDL [Mass/Vol]54 mg/dLInvalid Interpretation [facility]de Memorial HospitalComment on above:Result Comment: '>= 60 LOW RISK' '<= 40 HIGH RISK'Performed By: #### [id number] #### [facility] [address] [place], [place] [address]Ysciwcwdcey in LDL [Mass/Vol]107 mg/dLNormal<=129Flower HospitalComment on above:Performed By: #### [id number] #### [facility] [address] [place], [place] [address]Teqesnjwvtf in VLDL [Mass/Vol]77 mg/dLHigh7-40Flower HospitalComment on above:Performed By: #### [id number] #### [facility] [address] [place], [place] [address]Trvfbqwkjkyj [Mass/Vol]384 mg/dLHigh<=149Flower HospitalComment on above:Performed By: #### [id number] #### [facility] [address] [place], [place] [address]gXEMee 55-48-4514eVQD124 mL/min/1.73 t0Aczfqz>=59Flower HospitalComment on above:Performed By: #### [id number] #### [facility] [address] [place], [place] [address]GBM 12-LEADon 93-27-7302B[address] [address] Electrocardiograph Report Signed Patient: ELICEO KENNY MR#: [id number] : 1965 Acct:[id number] Age/Sex: 58 / M ADM Date: 06/02/24 Loc: [place] 215-[address]: Shaikh Eddie Avila Ordering Physician: Shazia Arias Date of Service: 06/02/24 Procedure(s): ECG 12 lead Accession Number(s): [id number] cc: [facility] Test Date: 2024-06-02 Pat Name: ELICEO KENNY Department: Room: - Gender: Male Manager Government: : 1965 Requested By: Order Number: [id number] Peg MD: BUDDY ALEXANDER Measurements Intervals [place] Rate: 100 P: 54 NJ: 154 QRS: -32 QRSD: 116 T: 34 QT: 342 QTc: 399 Interpretive Statements 1120 Sinus tachycardia 1570 with occasional ventricular premature complexes 2320 Nonspecific intraventricular conduction delay 7200 Abnormal left axis deviation 9140 abnormal rhythm ECG Electronically Signed On 06-03-2024 6:28:27 EST by BUDDY ALEXANDER Dictated By: Buddy Alexander M.D. Signed By: 06/03/24627 DD/ 18 TD/TT: [employer] Rep[employer] Mechanic:JOCELYNEadiolAlyssa irene, - 06/03/2024 [place] [address] Electrocardiograph Report Signed Patient: ELICEO KENNY MR#: [id number] : 1965 Acct:[id number] Age/Sex: 58 / M ADM Date: 06/02/24 Loc: [place] 215-[address]: Shaikh Eddie Avila Ordering Physician: Shazia Arias Date of Service: 06/02/24 Procedure(s): ECG 12 lead Accession Number(s): [id number] cc: [facility] Test Date: 2024-06-02 Pat Name: ELICEO KENNY Department: Room: - Gender: Male Manager Government: : 1965 Requested By: Order Number: [id number] Reading MD: BUDDY ALEXANDER Measurements Intervals [place] Rate: 100 P: 54 NJ: 154 QRS: -32 QRSD: 116 T: 34 QT: 342 QTc: 399 Interpretive Statements 1120 Sinus tachycardia 1570 with occasional ventricular premature complexes 2320 Nonspecific intraventricular conduction delay 7200 Abnormal left axis deviation 9140 abnormal rhythm ECG Electronically Signed On 06-03-2024 6:28:27 EST by BUDDY ALEXANDER Dictated By: Buddy Alexander M.D. Signed By: 06/03/24627 DD/ 18 TD/TT: [employer] Mechanic: AMA Samayoa 12-LEADOrdered By: Alyssa Radiology on 55-63-5318[facility] Work Phone: ECG 12-LEADon 95-81-4466Jmgryamnr Study observation (narrative)[facility] Office/Cl[facility] [...] or concerning lesions Assessment/Plan 1. 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 For now, we will continue DAPT.Fasting [...] range of 35% with grade 2 mitral regurgitation.[facility] HospitalComment on above: Result Comment: Electronically Signed By: Jaleesa SOLIS, Blanco Montenegro\.br\Date and Time Signed: 05/25/24 11:41 EDTXR Chest 2 Viewson 90-20-2557OGMK changes, parenchymal and pleural-based findings consistent with [...] BY: ELECTRONICALLY SIGNED BY: Demar Garcia MD [facility] HealthcareXR Chest 2 ViewsOrdered By: Demar Garcia on 04-36-6547[facility] Work Phone: xr Chest 2 Viewson 64-59-9500Aoaadykeg Study observation (narrative)[facility] HealthcareAddendum Noteon 74-16-9810Ptfhdydmglwyh Authentication Interface Message TextAddended by: JOHN COLLIER on: 01/02/2024 09:47 AM Modules accepted: [facility] SystemAddendum Noteon 12-29-2023 Chief Meter Reader Authentication Interface Message TextAddended by: JOHN COLLIER on: 12/29/2023 12:25 PM Modules accepted: [facility] SystemOffice Visit (Cardiology)on 66-32-3035Kzfcoy-up visitDiagnoses/Problems Assessed Atherosclerosis of coronary artery of rosebud heart without angina pectoris (414.01) (I25.10) Essential [...] (Z01.810) Orders Atherosclerosis of coronary artery of rosebud heart without angina pectoris Renew: Atorvastatin Calcium 80 MG Oral Tablet; TAKE 1 TABLET BY MOUTH EVERYDAY AT BEDTIME Renew: Carvedilol 6.25 MG Oral Tablet; take 1 tablet by mouth twice a day Renew: Clopidogrel Bisulfate 75 MG Oral Tablet; TAKE 1 TABLET BY MOUTH EVERY DAY Atherosclerosis of coronary artery of rosebud heart without angina pectoris, Preoperative cardiovascular examination [...] we can help. You may also call 9-611-CRLIArantechNOW for free resources and assistance.; Status:Complete - [...] stress test. Colostomy reversal with [facility] General Surgery, Fax: [phone] Follow up in 9-12 months Chief Complaint [...] N (more content not included)...NormalUH TouchworksTobacco Screening.on 59-64-9978Nkbnm depression screening assessmentNo-[facility] Zebit 250 DO Work Phone: Tobacco use status CPHSb) [facility] 250 DO Work Phone: CBC AUTO DIFFon 71-27-2627FMGP #0.0 103/ulNormal 0.0-0.1The [facility] HospitalComment on above:Performed By: #### CMREP #### [facility] [address] [place] [address] Dr. Wilda PatelBasophils/100 WBC (Bld)0.5 %Normal0.2-2.0The [facility] Comment on above:Performed By: #### CMREP #### [facility] [address] [place] [address] Dr. Wilda Carr #0.1 103/ulNormal0.0-0.7The [facility] HospitalComment on above: Performed By: #### CMREP #### [facility] [address] [address] [address] Wilda Cantuosinophils/100 WBC (Bld)0.8 %Critically low0.9-7.0The [facility] HospitalComment on above:Performed By: #### CMREP #### [facility] [address] [place] [address] Dr. Wilda Canturythrocyte distribution width (RBC) [Ratio]12.3 %Xvhgsp08.0-15.0 The [facility] HospitalComment on above:Performed By: #### CMREP #### [facility] [address] [address] [address] Wilda PatelHematocrit (Bld) [Volume fraction]41.9 %Critically low42.0-54.0 The [facility] HospitalComment on above:Performed By: #### CMREP #### [facility] [address] [place] [address] Dr. Wilda PatelHemoglobin (Bld) [Mass/Vol]14.6 g/cBKsbwix53.0-18.0The [facility] HospitalComment on above:Performed By: #### CMREP #### [facility] [address] [place] [address] Dr. Wilda Candelario #0.03 10e3/ulNormal0.00-0.03The [facility] HospitalComment on above:Performed By: #### CMREP #### [facility] [address] [place] [address] Dr. Wilda Candelario %0.5 %Normal0.0-0.5The [facility] HospitalComment on above: Performed By: #### CMREP #### [facility] [address] [place] [address] Dr. Wilda Pabon #1.7 103/ulNormal1.2-3.8The [facility] HospitalComment on above:Performed By: #### CMREP #### [facility] [address] [place] [address] Dr. Wilda Barrettmphocytes/100 WBC (Bld)26.2 %Nzqecl99.5-60.0D[facility] Ridge Medical CenterComment on above:Performed By: #### CMREP #### [facility] [address] [place] [address] Dr. Wilda SalgueroUAL DIFF REQNONormalThe [facility] HospitalComment on above: Performed By: #### CMREP #### [facility] [address] [place] [address] Dr. Wilda Clark (RBC) [Entitic mass]32.9 vpLqyvyw14.9-34.0The [facility] HospitalComment on above:Performed By: #### CMREP #### [facility] [address] [place] [address] Dr. Wilda Whitaker (RBC) [Mass/Vol]34.8 g/yXJecsfi04.9-35.2The [facility] HospitalComment on above:Performed By: #### CMREP #### [facility] [address] [place] [address] Dr. Wilda Whitaker (RBC) [Entitic vol]94.4 fLCritically high80.0-94.0The [facility] HospitalComment on above:Performed By: #### CMREP #### [facility] [address] [place] [address] Dr. Wilda Georges #0.6 103/ulNormal0.3-0.8The [facility] HospitalComment on above:Performed By: #### CMREP #### [facility] [address] [place] [address] Dr. Wilda Castroocytes/100 WBC (Bld)9.1 %Normal1.7-12.0The [facility] Comment on above:Performed By: #### CMREP #### [facility] [address] [place] [address] Dr. Wilda Berry #4.1 103/ulNormal1.4-6.5The [facility] HospitalComment on above:Performed By: #### CMREP #### [facility] [address] [place] [address] Dr. Wilda Coronadoutrophils/100 WBC (Bld)62.9 %Sozcae31.0-75.0The [facility] HospitalComment on above:Performed By: #### CMREP #### [facility] [address] [place] [address] Dr. Wilda Acostalet mean volume (Bld) [Entitic vol]10.0 fLNormal9.5-13.5The [facility] HospitalComment on above:Performed By: #### CMREP #### [facility] [address] [place] [address] Dr. Wilda RomeT182 103/bpWsnxyf264-831Dfo [facility] HospitalComment on above: Performed By: #### CMREP #### [facility] [address] [place] [address] Dr. Wilda PatelRBC4.44 106/ulCritically low4.70-6.10The [facility] HospitalComment on above:Performed By: #### CMREP #### [facility] [address] [place] [address] Dr. Wilda PatelWBC6.5 103/ulNormal4.0-11.0The [facility] HospitalComment on above: Performed By: #### CMREP #### [facility] [address] [place] [address] Dr. Wilda PatelMAGNESIUMon 49-73-9605Rsbcappnw [Mass/Vol]2.4 mg/dLNormal1.8-2.4 The [facility] HospitalComment on above:Performed By: #### CMREP #### [facility] [address] [place] [address] Dr. Wilda PatelPROF CHEM 8 (BAS METB)on 90-41-4139Jxtim gap [Moles/Vol]12.8 mmol/LNormalThe [facility] HospitalComment on above:Performed By: #### CMREP #### [facility] [address] [place] [address] Dr. Wilda PatelCalcium [Mass/Vol]8.3 mg/dLCritically low8.5-10.1The [facility] HospitalComment on above:Performed By: #### CMREP #### [facility] [address] [place] [address] Dr. Wilda PatelChloride [Moles/Vol]97 mmol/LCritically uxq22-190Lmd [facility] HospitalComment on above:Performed By: #### CMREP #### [facility] [address] [place] [address] Dr. Wilda PatelCO2 [Moles/Vol]24.5 mmol/IZojnef61.0-32.0The [facility] Comment on above:Performed By: #### CMREP #### [facility] [address] [address] [address] Wilda PatelCreatinine [Mass/Vol]0.76 mg/dLNormal0.70-1.30The [facility] Campusment on above:Performed By: #### CMREP #### [facility] [address] [address] [address] Astudillo ChangEGFR-AF CZECH>60Normal>=60The [facility] HospitalComment on above:Performed By: #### CMREP #### [facility] [address] [address] [address] Wilda aCntuGFR-NON AF CZECH>60Normal>=60The [facility] on above:Performed By: #### CMREP #### [facility] [address] [place] [address] Dr. Wilda PatelGlucose [Mass/Vol]98 mg/qWWvuqek64-957Qwm [facility] Comment on above:Performed By: #### CMREP #### [facility] [address] [address] [address] Wilda PatelPotassium [Moles/Vol]3.3 mmol/LCritically low3.5-5.1The [facility] on above:Performed By: #### CMREP #### [facility] [address] [address] [address] Wilda PatelSodium [Moles/Vol]131 mmol/LCritically rlm110-633Lpt [facility] on above:Performed By: #### CMREP #### [facility] [address] [address] [address] Wilda PatelUrea nitrogen [Mass/Vol]10.0 mg/dLNormal7.0-18.0The [facility] Campusment on above:Performed By: #### CMREP #### [facility] [address] [address] [address] Wilda PatelUrea nitrogen/Creatinine [Mass ratio]13.2 mg/mgNormalThe [facility] HospitalComment on above:Performed By: #### CMREP #### [facility] [address] [place] [address] Dr. Wilda HERBERT 3-6on 89-17-5935YS [Catalytic activity/Vol]108 U/L Ycjzhn04-629ExeDiley Ridge Medical CenterComment on above:Performed By: #### ERUR #### [facility] [address] [place] [address] Dr. Wilda Louise.MB [Mass/Vol]2.69 ng/mLNormal<=3.60[facility] Comment on above:Performed By: #### ERUR #### [facility] [address] [place] [address] Dr. Wilda Mak29.0 pg/mLNormal4.0-76.1The [facility] HospitalCommarlette regional hospital on above:Result Comment: CUT-OFF POINTS HAVE BEEN ESTABLISHED BASED ON THE FOURTH UNIVERSAL DEFINITIONS OF MYOCARDIAL INFARCTION. THE UPPER REFERENCE LIMIT (URL) OF TROPONIN, DEFINED THE 99TH PERCENTILE OF cTnI DISTRIBUTION IN A REFERENCE POPULATION, HAS BEEN CONFIRMED THE DECISION THRESHOLD FOR CT DIAGNOSIS.Performed By: #### ERUR #### [facility] [address] [place] [address] Dr. Wilda Louise [Catalytic activity/Vol]114 U/UNecgiz01-151Hhy [facility] HospitalComment on above:Performed By: #### CMREP #### [facility] [address] [place] [address] Dr. Wilda Louise.MB [Mass/Vol]2.60 ng/mLNormal<=3.60The [facility] Comment on above:Performed By: #### CMREP #### [facility] [address] [place] [address] Dr. Wilda Mak26.7 pg/mLNormal4.0-76.1The [facility] on above:Result Comment: CUT-OFF POINTS HAVE BEEN ESTABLISHED BASED ON THE FOURTH UNIVERSAL DEFINITIONS OF MYOCARDIAL INFARCTION. THE UPPER REFERENCE LIMIT (URL) OF TROPONIN, DEFINED THE 99TH PERCENTILE OF cTnI DISTRIBUTION IN A REFERENCE POPULATION, HAS BEEN CONFIRMED THE DECISION THRESHOLD FOR CT DIAGNOSIS.Performed By: #### CMREP #### [facility] [address] [place] [address] Dr. Wilda Baxter AUTO DIFFon 82-70-1225LWSC #0.0 103/ulNormal0.0-0.1The [facility] HospitalComment on above:Performed By: #### ERUR #### [facility] [address] [place] [address] Dr. Wilda PatelBasophils/100 WBC (Bld)0.5 %Normal0.2-2.0The [facility] Comment on above:Performed By: #### ERUR #### [facility] [address] [place] [address] Dr. Wilda Carr #0.0 103/ulNormal0.0-0.7The [facility] HospitalComment on above: Performed By: #### ERUR #### [facility] [address] [place] [address] Dr. Wilda Cantuosinophils/100 WBC (Bld)0.1 %Critically low0.9-7.0The [facility] HospitalComment on above:Performed By: #### ERUR #### [facility] [address] [place] [address] Dr. Wilda Canturythrocyte distribution width (RBC) [Ratio]12.4 %Kfvkzj76.0-15.0 [facility] CenterComment on above:Performed By: #### ERUR #### [facility] [address] [place] [address] Dr. Wilda PatelHematocrit (Bld) [Volume fraction]42.3 %Npqchz97.0-54.0The [facility] HospitalComment on above:Performed By: #### ERUR #### [facility] [address] [place] [address] Dr. Wilda PatelHemoglobin (Bld) [Mass/Vol]15.0 g/mCCganvk23.0-18.0[facility] CenterComment on above:Performed By: #### ERUR #### [facility] [address] [place] [address] Dr. Wilda Candelario #0.01 10e3/ulNormal0.00-0.03The [facility] HospitalComment on above:Performed By: #### ERUR #### [facility] [address] [place] [address] Dr. Wilda Candelario %0.1 %Normal0.0-0.5The [facility] HospitalComment on above: Performed By: #### ERUR #### [facility] [address] [place] [address] Dr. Wilda Pabon #1.7 103/ulNormal1.2-3.8The [facility] HospitalComment on above:Performed By: #### ERUR #### [facility] [address] [place] [address] Dr. Wilda Ramirezhocytes/100 WBC (Bld)22.2 %Jpipyg24.5-60.0The [facility] HospitalComment on above:Performed By: #### ERUR #### [facility] [address] [place] [address] Dr. Wilda SalgueroUAL DIFF REQNONormalThe [facility] HospitalComment on above: Performed By: #### ERUR #### [facility] [facility] [address] [place] [address] Dr. Wilda Clark (RBC) [Entitic mass]33.1 lsDomwif38.9-34.0The [facility] HospitalComment on above:Performed By: #### ERUR #### [facility] [address] [place] [address] Dr. Wilda Whitaker (RBC) [Mass/Vol]35.5 g/dLCritically high29.9-35.2The [facility] HospitalComment on above:Performed By: #### ERUR #### [facility] [address] [place] [address] Dr. Wilda Cordon (RBC) [Entitic vol]93.4 rXRfhfri85.0-94.0The [facility] HospitalComment on above:Performed By: #### ERUR #### [facility] [address] [place] [address] Dr. Wilda Georges #0.7 103/ulNormal0.3-0.8The [facility] HospitalComment on above:Performed By: #### ERUR #### [facility] [address] [place] [address] Dr. Wilda Castroocytes/100 WBC (Bld)9.7 %Normal1.7-12.0The [facility] Comment on above:Performed By: #### ERUR #### [facility] [address] [place] [address] Dr. Wilda Berry #5.2 103/ulNormal1.4-6.5The [facility] HospitalComment on above:Performed By: #### ERUR #### [facility] [address] [place] [address] Dr. Wilda Coronadoutrophils/100 WBC (Bld)67.4 %Yxudxp36.0-75.0The [facility] HospitalComment on above:Performed By: #### ERUR #### [facility] [address] [place] [address] Dr. Wilda Acostalet mean volume (Bld) [Entitic vol]9.4 fLCritically low 9.5-13.5The [facility] HospitalComment on above:Performed By: #### ERUR #### [facility] [address] [place] [address] Dr. Wilda PatelPLT171 103/daAuckgt874-457Lnz [facility] HospitalComment on above: Performed By: #### ERUR #### [facility] [address] [place] [address] Dr. Wilda VenturaC4.53 106/ulCritically low4.70-6.10The [facility] HospitalComment on above:Performed By: #### ERUR #### [facility] [address] [place] [address] Dr. Wilda PatelWBC7.7 103/ulNormal4.0-11.0The [facility] HospitalComment on above: Performed By: #### ERUR #### [facility] [address] [place], [place] [address] Dr. Wilda PatelCT STROKE HEAD WOon 69-51-5719AC STROKE HEAD WOEXAMINATION: CT STROKE HEAD WO [...] Electronically authenticated by: SUREKHA QUESADA Date: 2022-07-21 22:22[facility] N[facility] W CONon 76-05-4463MZZ NECK WO W CONEXAMINATION: CTA HEAD WO [...] Electronically authenticated by: TRACI THACKER Date: 2022-07-22 01:01[facility]HealthCovid-19 PCR (CVDTBH)on 38-50-3648DZQL-CoV-2 (COVID-19) RNA SHREYA+probe Ql (Unsp spec)Not detectedNormalNOT DETECTEDThe [facility] Comment on above:Result Comment: When diagnostic [...] for this test is supported by the [place] of [employer] and Human Service's declaration that [...] longer be used).Performed By: #### LACT #### [facility] [address] [place] [address] Dr. Wilda WeirCARDIO M/2D COMPLETEon 40-31-6864AVDMHHCUOL M/2D COMPLETE Patient: ELICEO KENNY Exam Date: 07/22/2022 : 1965 Gender:M Ordering : SHAIKH Mirtha JEAN . Admission #: [id number] Family : DR AARON OCAMPO M.D. Order #: [id number] CLICK HERE TO VIEW EXAM ECHOCARDIOGRAM REPORT [...] by: Willy Jin M.D. on 07/28/2022 at 10:00TriHealthLIPID PROFILEon [id number]-HDL RATIO NORMSDayton Osteopathic HospitalComment on above:Result Comment: 3.3 - 4.4 LOW RISK 4.4 - 7.1 AVERAGE RISK 7.1 - 11.0 MODERATE RISK >11.0 HIGH RISKPerformed By: #### CMREP #### [facility] [address] [place] [address] Dr. Wilda PatelCholesterol [Mass/Vol]180 mg/dLNormal<=200[facility] Comment on above:Performed By: #### CMREP #### [facility] [address] [place] [address] Dr. Yilan ChangCholesterol in HDL [Mass/Vol]59 mg/kGPbbsbg84-44Zib [facility] HospitalComment on above:Performed By: #### CMREP #### [facility] [address] [place] [address] Dr. Wilda PatelCholesterol in LDL [Mass/Vol]74.4 mg/dLTriHealthComment on above:Performed By: #### CMREP #### [facility] [address] [place] [address] Dr. Wilda Simmons.total/Cholesterol in HDL [Mass ratio]3.1 {ratio} NormalDiley Ridge Medical CenterCommarlette regional hospital on above:Performed By: #### CMREP #### [facility] [address] [place] [address] Dr. Wilda Norwood NORMAL> or = 60 mg/dl - LOW CARDIOVASCULAR RISK <40 mg/dl - HIGH CARDIOVASCULAR RISKTriHealthCommarlette regional hospital on above:Performed By: #### CMREP #### [facility] [address] [place] [address] Dr. Wilda PatelLDL CALC NORMALSEE BELOWTriHealthCommarlette regional hospital on above:Result Comment: <100 mg/dl OPTIMAL 100 - 129 mg/dl NEAR OR ABOVE OPTIMAL 130 - 159 mg/dl BORDERLINE HIGH 160 - 189 mg/dl HIGH >190 mg/dl VERY HIGH Performed By: #### CMREP #### [facility] [address] [place] [address] Dr. Wilda PatelTriglyceride [Mass/Vol]233 mg/dLCritically high<=150The [facility] HospitalCommarlette regional hospital on above:Performed By: #### CMREP #### [facility] [address] [place] [address] Dr. Wilda PatelVLDL CALC46.6 mg/dLTriHealthComment on above: Performed By: #### CMREP #### [facility] [address] [place] [address] Dr. Wilda PatelMAGNESIUMon 09-87-8296Mfswfpxjy [Mass/Vol]2.3 mg/dLNormal1.8-2.4 The [facility] HospitalComment on above:Performed By: #### BMP, MG #### [facility] [address] [address] [address] Widla Lobo BRAIN WO CONon 02-28-6801JZE BRAIN WO CONEXAMINATION: MRI BRAIN WO CON, [...] Electronically authenticated by: CAROLYN REDDY Date: 2022-07-22 15:28TriHealthPROF CHEM 8 (BAS METB)on 38-17-9408Isidk gap [Moles/Vol]16.0 mmol/LNormalThe [facility] HospitalComment on above:Performed By: #### BMP, MG #### [facility] [address] [place] [address] Dr. Wilda PatelCalcium [Mass/Vol]8.3 mg/dLCritically low8.5-10.1The [facility] HospitalComment on above:Performed By: #### BMP, MG #### [facility] [address] [place] [address] Dr. Wilda PatelChloride [Moles/Vol]100 mmol/NModqwm49-332YcvDiley Ridge Medical Center Comment on above:Performed By: #### BMP, MG #### [facility] [address] [place] [address] Dr. Wilda PatleCO2 [Moles/Vol]21.3 mmol/CNuffzb00.0-32.0[facility] Comment on above:Performed By: #### BMP, MG #### [facility] [address] [address] [address] Wilda PatelCreatinine [Mass/Vol]0.70 mg/dLNormal0.70-1.30The [facility] Campusment on above:Performed By: #### BMP, MG #### [facility] [address] [address] [address] Astudillo ChangEGFR-AF CZECH>60Normal>=60The [facility] on above:Performed By: #### BMP, MG #### [facility] [address] [address] [address] Wilda CantuGFR-NON AF CZECH>60Normal>=60The [facility] on above:Performed By: #### BMP, MG #### [facility] [address] [address] [address] iWlda PatelGlucose [Mass/Vol]92 mg/pAYsktbm24-523Dti [facility] Comment on above:Performed By: #### BMP, MG #### [facility] [address] [address] [address] Wilda PatelPotassium [Moles/Vol]3.3 mmol/LCritically low3.5-5.1The [facility] on above:Performed By: #### BMP, MG #### [facility] [address] [address] [address] Wilda PatelSodium [Moles/Vol]134 mmol/LCritically cfi812-256Ocv [facility] on above:Performed By: #### BMP, MG #### [facility] [address] [address] [address] Wilda PatelUrea nitrogen [Mass/Vol]12.0 mg/dLNormal7.0-18.0The [facility] on above:Performed By: #### BMP, MG #### [facility] [address] [address] [address] Wilda PatelUrea nitrogen/Creatinine [Mass ratio]17.1 mg/mgNormalThe [facility] HospitalComment on above:Performed By: #### BMP, MG #### [facility] [address] [place] [address] Dr. Wilda Wilson 82-60-1628BTJ08.049 uIU/mLCritically high0.358-3.740The [facility] HospitalComment on above:Performed By: #### LIPID, TSH #### [facility] [address] [place] [address] Dr. Wilda PatelXR CHEST 1 Von 90-32-7030PR CHEST 1 VEXAMINATION: XR CHEST 1 V HISTORY: Chest pain COMPARISON: Portable chest 06/14/2021 TECHNIQUE: Portable chest FINDINGS: The lung parenchyma is free of consolidation or infiltrate. No pneumothorax or pleural effusion. The cardiac, mediastinal and hilar contours are normal. The visualized osseous structures exhibit no gross abnormality. IMPRESSION: No acute cardiopulmonary abnormality. Electronically authenticated by: CAROLYN TRACY Date: 2022-07-21 22:18NoCleveland Clinic Hillcrest HospitalXR FOREIGN BODY EYEon 26-22-8404OU FOREIGN BODY EYEEXAMINATION: XR FOREIGN BODY EYE HISTORY: Foreign body in eye COMPARISON: No relevant comparison available. FINDINGS: ORBITS: Negative for a metallic foreign body. OTHER: Negative. IMPRESSION: No metallic foreign body in the orbits Electronically authenticated by: CAROLYN REDDY Date: 2022-07-22 12:09TriHealthCARDIAC KEON ADMITon 80-70-5990VQ [Catalytic activity/Vol]123 U/RXuntaf74-689Bpy [facility] HospitalComment on above:Performed By: #### CMREP #### [facility] [address] [place] [address] Dr. Wilda Louise.MB [Mass/Vol]3.11 ng/mLNormal<=3.60[facility] Comment on above:Performed By: #### CMREP #### [facility] [address] [place] [address] Dr. Wilda PatelHSTROP23.3 pg/mLNormal4.0-76.1The [facility] HospitalComment on above:Result Comment: CUT-OFF POINTS HAVE BEEN ESTABLISHED BASED ON THE FOURTH UNIVERSAL DEFINITIONS OF MYOCARDIAL INFARCTION. THE UPPER REFERENCE LIMIT (URL) OF TROPONIN, DEFINED THE 99TH PERCENTILE OF cTnI DISTRIBUTION IN A REFERENCE POPULATION, HAS BEEN CONFIRMED THE DECISION THRESHOLD FOR CT DIAGNOSIS.Performed By: #### CMREP #### [facility] [address] [place] [address] Dr. Wilda AllenO136 ng/mLCritically zvye53-55Mka [facility] HospitalComment on above:Performed By: #### CMREP #### [facility] [address] [place] [address] Dr. Wilda VidalC AUTO DIFFon 41-66-0381IOCA #0.0 103/ulNormal0.0-0.1The [facility] HospitalComment on above:Performed By: #### ERUR #### [facility] [address] [place] [address] Dr. Wilda PatelBasophils/100 WBC (Bld)0.3 %Normal0.2-2.0[facility] Comment on above:Performed By: #### ERUR #### [facility] [address] [place] [address] Dr. Wilda Carr #0.0 103/ulNormal0.0-0.7The [facility] HospitalComment on above: Performed By: #### ERUR #### [facility] [address] [place] [address] Dr. Wilda Cantuosinophils/100 WBC (Bld)0.1 %Critically low0.9-7.0The [facility] HospitalComment on above:Performed By: #### ERUR #### [facility] [address] [place] [address] Dr. Wilda Canturythrocyte distribution width (RBC) [Ratio]12.3 %Qdocvt78.0-15.0 The [facility] HospitalComment on above:Performed By: #### ERUR #### [facility] [address] [place] [address] Dr. Wilda PatelHematocrit (Bld) [Volume fraction]47.4 %Qufhdh36.0-54.0The [facility] HospitalComment on above:Performed By: #### ERUR #### [facility] [address] [address] [address] Wilda PatelHemoglobin (Bld) [Mass/Vol]16.8 g/wOGnhupa17.0-18.0The [facility] HospitalComment on above:Performed By: #### ERUR #### [facility] [address] [place] [address] Dr. Wilda Candelario #0.04 10e3/ulCritically high0.00-0.03The [facility] Comment on above:Performed By: #### ERUR #### [facility] [address] [place] [address] Dr. Wilda Candelario %0.4 %Normal0.0-0.5The [facility] HospitalComment on above: Performed By: #### ERUR #### [facility] [address] [place] [address] Dr. Wilda Pabon #1.6 103/ulNormal1.2-3.8The [facility] HospitalComment on above:Performed By: #### ERUR #### [facility] [address] [place] [address] Dr. Wilda Ramirezhocytes/100 WBC (Bld)15.7 %Critically low20.5-60.0The [facility] HospitalComment on above:Performed By: #### ERUR #### [facility] [address] [place] [address] Dr. Wilda SalgueroUAL DIFF REQNONormalThe [facility] HospitalComment on above: Performed By: #### ERUR #### [facility] [address] [place] [address] Dr. Wilda Whitaker (RBC) [Entitic mass]32.9 onJzdfkt65.9-34.0The [facility] HospitalComment on above:Performed By: #### ERUR #### [facility] [address] [place] [address] Dr. Wilda Whitaker (RBC) [Mass/Vol]35.4 g/dLCritically high29.9-35.2The [facility] HospitalComment on above:Performed By: #### ERUR #### [facility] [address] [place] [address] Dr. Wilda WhitakerV (RBC) [Entitic vol]92.9 oIAjukap25.0-94.0The [facility] HospitalComment on above:Performed By: #### ERUR #### [facility] [address] [place] [address] Dr. Wilda Georges #0.9 103/ulCritically high0.3-0.8The [facility] Comment on above:Performed By: #### ERUR #### [facility] [address] [place] [address] Dr. Wilda Castroocytes/100 WBC (Bld)9.3 %Normal1.7-12.0[facility] Comment on above:Performed By: #### ERUR #### [facility] [address] [place] [address] Dr. Wilda Berry #7.4 103/ulCritically high1.4-6.5ThCommunity Memorial Hospital Comment on above:Performed By: #### ERUR #### [facility] [address] [place] [address] Dr. Wilda Coronadoutrophils/100 WBC (Bld)74.2 %Pjubtq98.0-75.0The [facility] HospitalComment on above:Performed By: #### ERUR #### [facility] [address] [place] [address] Dr. Wilda Acostalet mean volume (Bld) [Entitic vol]9.6 fLNormal9.5-13.5ThCommunity Memorial HospitalComment on above:Performed By: #### ERUR #### [facility] [address] [place] [address] Dr. Wilda PatelPLT216 103/xlGbpqnu198-625Ezi [facility] HospitalComment on above: Performed By: #### ERUR #### [facility] [address] [place] [address] Dr. Wilda PatelRBC5.10 106/ulNormal4.70-6.10The [facility] HospitalComment on above:Performed By: #### ERUR #### [facility] [address] [address] [address] Wilda PatelWBC9.9 103/ulNormal4.0-11.0The [facility] HospitalComment on above: Performed By: #### ERUR #### [facility] [address] [place] [address] Dr. Wilda PatelPOINT OF CARE GLUCOSEon 90-37-6119Qxmonkg [Mass/Vol]113 mg/dL Critically mtrx42-370Edy [facility] HospitalComment on above:Performed By: #### ERUR #### [facility] [address] [place] [address] Dr. Wilda Álvarez 14(COMP METB)on 89-52-4751Clagzsl [Mass/Vol]3.9 g/dLNormal 3.4-5.0The [facility] HospitalComment on above:Performed By: #### CMREP #### [facility] [address] [place] [address] Dr. Wilda PatelAlbumin/Globulin [Mass ratio]1.0 {ratio}NormalThe [facility] HospitalComment on above:Performed By: #### CMREP #### [facility] [address] [place] [address] Dr. Wilda Prescott [Catalytic activity/Vol]137 U/LCritically wrwm15-378Djq [facility] HospitalComment on above:Performed By: #### CMREP #### [facility] [address] [place] [address] Dr. Wilda Ramirez [Catalytic activity/Vol]16 U/PTungzh79-86Tkv [facility] HospitalComment on above:Performed By: #### CMREP #### [facility] [address] [place] [address] Dr. Wilda Nelson gap [Moles/Vol]16.7 mmol/LNormalThe [facility] Comment on above:Performed By: #### CMREP #### [facility] [address] [place] [address] Dr. Yilan ChangAST [Catalytic activity/Vol]18 U/EVckdlm71-00Epk [facility] HospitalComment on above:Performed By: #### CMREP #### [facility] [address] [place] [address] Dr. Wilda PatelBilirubin [Mass/Vol]2.1 mg/dLCritically high0.2-1.0The [facility] HospitalComment on above:Performed By: #### CMREP #### [facility] [address] [place] [address] Dr. Wilda PatelCalcium [Mass/Vol]9.2 mg/dLNormal8.5-10.1The [facility] Comment on above:Performed By: #### CMREP #### [facility] [address] [place] [address] Dr. Wilda PatelChloride [Moles/Vol]96 mmol/LCritically oeb24-217Klx [facility] HospitalComment on above:Performed By: #### CMREP #### [facility] [address] [place] [address] Dr. Wilda PatelCO2 [Moles/Vol]23.8 mmol/ADedpbj73.0-32.0The [facility] Comment on above:Performed By: #### CMREP #### [facility] [address] [place] [address] Dr. Wilda PatelCreatinine [Mass/Vol]0.92 mg/dLNormal0.70-1.30The [facility] HospitalComment on above:Performed By: #### CMREP #### [facility] [address] [place] [address] Dr. Wilda CantuGFR-AF CZECH>60Normal>=60The [facility] HospitalComment on above:Performed By: #### CMREP #### [facility] [address] [place] [address] Dr. Wilda CantuGFR-NON AF CZECH>60Normal>=60The [facility] HospitalComment on above:Performed By: #### CMREP #### [facility] [address] [place] [address] Dr. Wilda PatelGlobulin (S) [Mass/Vol]4.0 g/dLNormMadison HealthComment on above:Performed By: #### CMREP #### [facility] [address] [place] [address] Dr. Wilda PatelGlucose [Mass/Vol]112 mg/dLCritically aujk96-885Ryi [facility] HospitalComment on above:Performed By: #### CMREP #### [facility] [address] [place] [address] Dr. Wilda PatelPotassium [Moles/Vol]3.5 mmol/LNormal3.5-5.1The [facility] Comment on above:Performed By: #### CMREP #### [facility] [address] [place] [address] Dr. Wilda PatelProtein [Mass/Vol]7.9 g/dLNormal6.4-8.2The [facility] Comment on above:Performed By: #### CMREP #### [facility] [address] [place] [address] Dr. Wilda PatelSodium [Moles/Vol]133 mmol/LCritically ldm273-336Wtt [facility] HospitalComment on above:Performed By: #### CMREP #### [facility] [address] [place] [address] Dr. Wilda PatelUrea nitrogen [Mass/Vol]15.0 mg/dLNormal7.0-18.0The [facility] HospitalComment on above:Performed By: #### CMREP #### [facility] [address] [place] [address] Dr. Wilda PatelUrea nitrogen/Creatinine [Mass ratio]16.3 mg/mgNoCleveland Clinic Hillcrest HospitalComment on above:Performed By: #### CMREP #### [facility] [address] [place] [address] Dr. Wilda PatelPROTIMEon 67-24-2720TZH Coag (PPP) [Relative time]1.00 {INR} NormalThe [facility] HospitalComment on above:Performed By: #### PTT, PT #### [facility] [address] [address] [address] Wilda Barragan GUIDELINESSEE BELOWNoCleveland Clinic Hillcrest HospitalComment on above:Result Comment: DESIRED INR: 2.0 - 3.0 CONDITIONS NOT LISTED BELOW 2.5 - 3.5 FOR PROSTHETIC HEART VALVE REPLACEMENT 2.5 - 3.5 RECURRENT THROMBOSIS Performed By: #### PTT, PT #### [facility] [address] [address] [address] Wilda Rehman Coag (PPP) [Time]10.8 sNormal9.0-11.6The [facility] Comment on above:Performed By: #### PTT, PT #### [facility] [address] [place] [address] Dr. Wilda Berrios 62-86-7585ySAG Coag (Bld) [Time]28.8 yPhevmx37.3-36.2[facility] Medical CenterComment on above:Performed By: #### PTT, PT #### [facility] [address] [place] [address] Dr. Wilda Mahmood T4 (Free Thyroxine)on 48-29-9914Uepg T4 [Mass/Vol]0.60 ng/dL Low0.61-1.12[facility] HospitalComment on above:Performed By: #### SZEV25UE, TSH3 wRFLX, T4F #### [facility] [address] [place] [address] USANo Panel InformationOrdered By: Medhat Baltazar on 57-96-817191064475-Ozetwsv Vitamin D Total8.1 ng/oW71-685DedpdyeovMarymount HospitalComment on above:VITAMIN D STATUS 25(OH)VITAMIN D RANGE (ng/mL) Deficient <20 Insufficient 20 to <69Luzyxhxvbw49 to 100Reference: Jay MF,[place], Isaac FRANCES, et al. Evaluation,treatment, and prevention of vitamin D deficiency; an Endocrine Society clinical practice guideline. JCEM. 2010; 96 (7):1911-30.TSH DL <= 0.005 mIU/L QnOrdered By: Medhat Baltazar on 06-08-2022 TSH Qn28.54 m[IU]/L0.45-5.33[facility] HospitalThyroid Stim Hormone w/Rflxon 70-91-7977Orfolsm Stim Hormone w/Rflx28.54 u[iU]/mLHigh 0.45-5.33[facility] HospitalComment on above:Performed By: #### LIPID, TSH3 wRFLX, CBC, ODZM08XI, T4F, CMP, XJFA45AWU, LDLD, A1C WT eA #### [facility] [address] [place] [address] USAThyroxine (T4) free [Mass/volume] in Serum or Plasma Ordered By: Medhat Baltazar on 62-51-1250Mknm T4 [Mass/Vol]0.60 ng/dL0.61-1.12 [facility] HospitalVitamin D 25 Hydroxy Totalon 28-93-2605Umoieft D 25 Hydroxy Total8.1 ng/oSCvu89-457FhjifjnaaMarymount HospitalComment on above:Result Comment: VITAMIN D STATUS 25(OH)VITAMIN D RANGE (ng/mL) Deficient <20 Insufficient 20 to <30 Sufficient 30 to 100 Reference: Jay MF,[place], Sanna-Chi FRANCES, et al. Evaluation,treatment, and prevention of vitamin D deficiency; an Endocrine Society clinical practice guideline. JCEM. 2010; 96(7):1911-30. PERFORMED BY: [address] [address] PATHOLOGIST HYDRA[employer]IC GOVERNOR [employer]SEMBLER MARCO ANTONIO FINLEY M.D.Performed By: #### LIPID, TSH3 wRFLX, CBC, VIUH10EE, T4F, CMP, VILS17DOG, LDLD, A1C WT eA #### [facility] [address] [place] [address] USANO MUGA SCAN INJECTIONon 60-82-5272NXS MUGA SCAN INJECTIONMRN: [id number] Patient Name: ELICEO KENNY STUDY: MUGA Performing facility: [facility], [address] [place] [address], [address], [place] [address] [facility] Provider: Darlin Ocampo MD, FACC PCP: Dr. Kelley Supervising provider: Ben Meyers MD INDICATION: Encounter for ICD HISTORY: Gender: M; Age: 56 y/o ; Height: 167.64 cm; Weight: 97.7178829 kg. CAD; High Cholesterol; Previous CT; HTN; COPD; Ischemic cardiomyopathy Currently smoking. Cardiac catheterization on 2018. PTCA on 2018. COMPARISON: Previous nuclear testing completed [id number] Muga at [facility]. ACCESSION NUMBER(S): [id number]; [id number] ORDERING CLINICIAN: AARON OCAMPO TECHNIQUE: The patient [...] was abnormal. Global resting LVEF was globally at %. IMPRESSION: Mild resting right ventricular hypokinesis Abnormalresting left ventricular function. Left ventricular ejection fraction is 35%. No change when compared to prior study Electronically signed by: BEN MEYERS MDVA hospitalNo Panel Informationon 05-34-5094BhktvmQZVirginia [facility] 250 DO Work Phone: A1C with Estimated Average Gluon 73-51-7182Wwvsfzp [Mass/Vol]111 mg/dLLancaster Municipal HospitalComment on above: Result Comment: PERFORMED BY: [facility] [address] [place] [id number] PATHOLOGIST HYDRAULIC GOVERNOR [employer]SEMBLER MARCO ANTONIO FINLEY M.D.Performed By: #### LIPID, TSH3 wRFLX, CBC, MYZJ02WW, T4F, CMP, WSRJ21WBV, LDLD, A1C [facility] #### [facility] [address] [place] [address] PXWRhN0q (Bld) [Mass fraction]5.5 %Normal4.3-5.6FSelect Medical Specialty Hospital - Cleveland-FairhillComment on above:Result Comment: Increased risk for diabetes: 5.7 - 6.4 diabetes: >6.4 glycemic control for adults with diabetes: <7.0Performed By: #### LIPID, TSH3 wRFLX, CBC, MORI87VG, T4F, CMP, VGWN45OIJ, LDLD, A1C WTH #### [facility] [address] [place] [address] USABasophils Auto (Bld) [#/Vol]Ordered By: Medhat Baltazar on 08-06-3385Koqxoneok (Bld) [#/Vol]0.0 10*3/uL0.0-0.2FSelect Medical Specialty Hospital - Cleveland-FairhillBasophils/100 WBC Auto (Bld)Ordered By: Medhat Baltazar on 03-12-2022 Basophils/100 WBC (Bld)0.6 %.Marymount HospitalBlood hemoglobin measurement (mass/volume)Ordered By: Medhat Baltazar on 46-19-7968Hwezuemmhe (Bld) [Mass/Vol]14.8 g/dL13.0-17.0Marymount HospitalBlood leukocytes automated count (number/volume)Ordered By: Medhat Baltazar on 85-63-3066GFW (Bld) [#/Vol]5.3 10*3/uL4.5-11.0[facility] Body fluid albumin measurement (mass/volume)Ordered By: Medhat Baltazar on 12-43-4562Ejtuxpy (Body fld) [Mass/Vol]3.7 g/dL3.2-5.5FSelect Medical Specialty Hospital - Cleveland-FairhillCholesterol [Mass/volume] in Serum or PlasmaOrdered By: Medhat Baltazar on 63-65-4808Dzxghgwdrub [Mass/Vol]157 mg/dS780-523RixmegsdpMarymount HospitalComment on above:Chol less than 200 mg/dl low risk Chol 201-239 mg/dl borderline risk Chol 240 mg/dl and greater high riskChol less than 200 mg/dl low riskChol 201- 239 mg/dl borderline riskChol 240 mg/dl and greater high riskCholesterol in LDL Calc [Mass/Vol]Ordered By: Medhat Baltazar on 20-03-6842Oxymmydzrrz in LDL [Mass/Vol]42 mg/dL0-100Marymount HospitalComment on above:LDL ATP III CLASSIFICATION LDL less than 100 mg/dL Optimal LDL 100-129 mg/dL Near or above optimal LDL 130-159 mg/dL Borderline high LDL 160-189 mg/dL High LDL greater than 189 mg/dL Very highLDL ATP III CLASSIFICATIONLDL less than 100 mg/dL OptimalLDL 100-129 mg/dL Near or above lyhsxtuKOR895-185 mg/dL Borderline highLDL 160-189 mg/dL HighLDL greater than 189 mg/dL Very highCholesterol in VLDL Calc [Mass/Vol]Ordered By: Medhat Baltazar on 66-30-4003Duvzmgevisx in VLDL [Mass/Vol]48 mg/dLMarymount HospitalComplete Blood Count Auto Diffon 37-04-8656Ccbchzvde (Bld) [#/Vol]0.0 10*3/uLNormal0.0-0.2FSelect Medical Specialty Hospital - Cleveland-FairhillComment on above:Result Comment: PERFORMED BY: [place] [address] PATHOLOGIST HYDRAULIC GOVERNOR ASSEMBLER MARCO ANTONIO FINLEY M.D.Performed By: #### LIPID, TSH3 wRFLX, CBC, [id number], T4F, CMP, [id number], LDLD, A1C WTH eA #### [facility] [address] [place] [address] USABasophils/100 WBC (Bld)0.6 %Normal.Marymount HospitalComment on above:Performed By: #### LIPID, TSH3 wRFLX, CBC, [id number], T4F, CMP, [id number], LDLD, A1C WTH eA #### [facility] [address] [place] [address] USAEosinophils (Bld) [#/Vol]0.0 10*3/uLNormal0.0-0.45 Mary[facility] HospitalComment on above:Performed By: #### LIPID, TSH3 wRFLX, CBC, [id number], T4F, CMP, NWMA69YKQ, LDLD, A1C WTH eA #### [facility] [address] [place], [place] [id number] USAEosinophils/100 WBC (Bld)0.4 %Normal.Marymount HospitalComment on above:Performed By: #### LIPID, TSH3 wRFLX, CBC, GIAD54VH, T4F, CMP, TBFA25ZQK, LDLD, A1C WTH eA #### [place] [address] USAErythrocyte distribution width (RBC) [Ratio]13.7 %Normal 12.0-14.8Marymount HospitalComment on above:Performed By: #### LIPID, TSH3 wRFLX, CBC, IKEB51VU, T4F, CMP, PECP67ADT, LDLD, A1C WTH eA #### [place] [address] USAHematocrit (Bld) [Volume fraction]43.7 %Mfcezf63.8-50.0 Mary[facility] HospitalComment on above:Performed By: #### LIPID, TSH3 wRFLX, CBC, WTHI54HF, T4F, CMP, [id number], LDLD, A1C WTH eA #### [place] [address] USAHemoglobin (Bld) [Mass/Vol]14.8 g/mQZlvwqr38.0-17.0 [facility] HospitalComment on above:Performed By: #### LIPID, TSH3 wRFLX, CBC, CCTS89RT, T4F, CMP, WBNZ23NCS, LDLD, A1C WTH eA #### [place] [id number] USALymphocytes (Bld) [#/Vol]1.6 10*3/uLNormal1.00-4.8 Mary[facility] HospitalComment on above:Performed By: #### LIPID, TSH3 wRFLX, CBC, ENSO09GE, T4F, CMP, ZNMP91BYD, LDLD, A1C WTH eA #### [place] [address] USALymphocytes/100 WBC (Bld)29.2 %Normal.Marymount HospitalComment on above:Performed By: #### LIPID, TSH3 wRFLX, CBC, SKCO87UU, T4F, CMP, DRUF88KIQ, LDLD, A1C WTH eA #### [facility] [address] [place] [id number] [facility] (RBC) [Entitic mass]34.1 ipTwxhih47.5-35.2FSelect Medical Specialty Hospital - Cleveland-FairhillComment on above:Performed By: #### LIPID, TSH3 wRFLX, CBC, WKHE37OQ, T4F, CMP, UOSX18ORB, LDLD, A1C WTH eA #### [facility] [address] [place] [id number] [facility] (RBC) [Entitic vol]101.1 kWSebr09.5-101Marymount HospitalComment on above:Performed By: #### LIPID, TSH3 wRFLX, CBC, AXJQ74PK, T4F, CMP, ZUFK69XZZ, LDLD, A1C WTH eA #### [place] [address] USAMean Corpuscular HGB Conc33.8 g/dINcbcfe65.5-35.6FSelect Medical Specialty Hospital - Cleveland-FairhillComment on above:Performed By: #### LIPID, TSH3 wRFLX, CBC, EPDF11PN, T4F, CMP, ALSR02EGK, LDLD, A1C WTH eA #### [facility] [address] [place] [address] USAMonocytes (Bld) [#/Vol]0.4 10*3/uLNormal0.0-0.8Marymount HospitalComment on above:Performed By: #### LIPID, TSH3 wRFLX, CBC, BUSR53FK, T4F, CMP, KBVR59OUF, LDLD, A1C WTH eA #### [facility] [address] [place] [id number] USAMonocytes/100 WBC (Bld)7.0 %Normal.Marymount HospitalComment on above:Performed By: #### LIPID, TSH3 wRFLX, CBC, HQUC14GT, T4F, CMP, YXCR52LOB, LDLD, A1C WTH eA #### [facility] [address] [place] [address] USANeutrophils (Bld) [#/Vol]3.3 10*3/uLNormal1.8-7.7FSelect Medical Specialty Hospital - Cleveland-FairhillComment on above:Performed By: #### LIPID, TSH3 wRFLX, CBC, KBFM02NT, T4F, CMP, SAKE08VAL, LDLD, A1C WTH eA #### [facility] [address] [place] [address] USANeutrophils/100 WBC (Bld)62.8 %Normal.Marymount HospitalComment on above:Performed By: #### LIPID, TSH3 wRFLX, CBC, KWRR91NT, T4F, CMP, WVRY50FOX, LDLD, A1C WTH eA #### [place] [address] USANucleated RBC/100 WBC (Bld) [Ratio]0.1 %Normal0-0.5 Marymount HospitalComment on above:Performed By: #### LIPID, TSH3 wRFLX, CBC, OUXV59WR, T4F, CMP, HTGE97NES, LDLD, A1C WTH eA #### [facility] [address] [place] [address] USAPlatelet mean volume (Bld) [Entitic vol]8.7 fLNormal 6.6-10.1FSelect Medical Specialty Hospital - Cleveland-FairhillComment on above:Performed By: #### LIPID, TSH3 wRFLX, CBC, WXHP46JX, T4F, CMP, RNIF90VJF, LDLD, A1C WTH eA #### [facility] [address] [place] [id number] USAPlatelets (Bld) [#/Vol]218 10*3/uFHkknxy790-261WrxumiijfMarymount HospitalComment on above:Performed By: #### LIPID, TSH3 wRFLX, CBC, ETTS30QP, T4F, CMP, ZMNW54LXC, LDLD, A1C WTH eA #### [facility] [address] [place] [address] USARBC (Bld) [#/Vol]4.33 10*6/uLNormal3.90-5.60Marymount HospitalComment on above:Performed By: #### LIPID, TSH3 wRFLX, CBC, ONIB07MH, T4F, CMP, [id number], LDLD, A1C WTH eA #### [facility] [address] [place] [address] USAWBC (Bld) [#/Vol]5.3 10*3/uLNormal4.5-11.0Marymount HospitalComment on above:Performed By: #### LIPID, TSH3 wRFLX, CBC, FIZQ43ZA, T4F, CMP, HYRM88EHS, LDLD, A1C WTH eA #### [facility] [address] [place] [address] USAComprehensive Metabolic Panelon 56-13-3805Pkklxce [Mass/Vol]3.7 g/dLNormal3.2-5.5FSelect Medical Specialty Hospital - Cleveland-FairhillComment on above:Performed By: #### LIPID, TSH3 wRFLX, CBC, DQMI98WQ, T4F, CMP, UYQX19YJM, LDLD, A1C WTH eA #### [facility] [address] [place] [address] USAAlbumin/Globulin [Mass ratio]1.3 {ratio}NormalMarymount HospitalComment on above:Performed By: #### LIPID, TSH3 wRFLX, CBC, ZDEC07QM, T4F, CMP, UJOW17QKF, LDLD, A1C WTH eA #### [facility] [address] [place] [address] USAALP [Catalytic activity/Vol]87 U/AEojsmr33-29XytzsfnlsMarymount HospitalComment on above:Performed By: #### LIPID, TSH3 wRFLX, CBC, TLAR37OR, T4F, CMP, KJPS43YOF, LDLD, A1C WTH eA #### [facility] [address] [place] [address] USAALT [Catalytic activity/Vol]39 U/OPiqguj69-82YudvgwlfuMarymount HospitalComment on above:Performed By: #### LIPID, TSH3 wRFLX, CBC, LIQN19TV, T4F, CMP, JPYN28FMA, LDLD, A1C WTH eA #### [facility] [address] [place] [address] USAAST [Catalytic activity/Vol]23 U/FLnyjye70-95MdcmfunstMarymount HospitalComment on above:Performed By: #### LIPID, TSH3 wRFLX, CBC, CJJD95IZ, T4F, CMP, VXCI47UTK, LDLD, A1C WTH eA #### [facility] [address] [place] [id number] USABilirubin [Mass/Vol]1.5 mg/dLHigh0.3-1.2FSelect Medical Specialty Hospital - Cleveland-FairhillComment on above:Result Comment: Samples from patients who have taken Naproxen have shown spurious elevation in Total Bilirubin levels. A metabolite of Naproxen, O-desmethylnaproxen, has been shown to interfere with the Christiana-Pb method for measuring Total Bilirubin.Performed By: #### LIPID, TSH3 wRFLX, CBC, QDEK41VV, T4F, CMP, VOSG53VJU, LDLD, A1C WTH eA #### [place] [id number] USACalcium [Mass/Vol]9.1 mg/dLNormal8.2-10.2FSelect Medical Specialty Hospital - Cleveland-FairhillComment on above:Performed By: #### LIPID, TSH3 wRFLX, CBC, MWMV05VC, T4F, CMP, VBDF79ZOD, LDLD, A1C WTH eA #### [facility] [address] [place] [address] USAChloride [Moles/Vol]104 mmol/ZEfbkwp08-999MqplwronoMarymount HospitalComment on above:Performed By: #### LIPID, TSH3 wRFLX, CBC, BWQW34JR, T4F, CMP, UFYF21RGD, LDLD, A1C WTH eA #### [facility] [address] [place] [id number] USACO2 [Moles/Vol]20.0 mmol/LLow22.0-30.0Marymount HospitalComment on above:Performed By: #### LIPID, TSH3 wRFLX, CBC, YZOP36DD, T4F, CMP, UBJT07UYO, LDLD, A1C WTH eA #### [place] [id number] USACreatinine [Mass/Vol]0.73 mg/dLNormal0.64-1.27Marymount HospitalComment on above:Performed By: #### LIPID, TSH3 wRFLX, CBC, JWBV31AP, T4F, CMP, RRXY62WWE, LDLD, A1C WTH eA #### [place] [address] USAEstimated GFR ( Marisol> 60NoPremier Health Atrium Medical CenterComment on above:Result Comment: GFR estimated reference range: According to KDOQI guidelines, <60 ml/min/1.73m2 is sufficient to diagnose a patient with chronic kidney disease.Performed By: #### LIPID, TSH3 wRFLX, CBC, [id number], T4F, CMP, STXW14RPZ, LDLD, A1C WTH eA #### [address] [address] USAEstimated GFR (Non- Am> 60NoPremier Health Atrium Medical CenterComment on above:Performed By: #### LIPID, TSH3 wRFLX, CBC, WAWA06IZ, T4F, CMP, ATOO69JLQ, LDLD, A1C WTH eA #### [address] [address] USAGlobulin (S) [Mass/Vol]2.9 g/dLNoPremier Health Atrium Medical CenterComment on above:Performed By: #### LIPID, TSH3 wRFLX, CBC, SFRQ61SB, T4F, CMP, QVCO87DVJ, LDLD, A1C WTH eA #### [place] [id number] USAGlucose [Mass/Vol]86 mg/oZCeapvc00-221MbgusvgjrMarymount HospitalComment on above:Result Comment: Random Glucose Reference Range is dependent on time and content of last meal. Glucose of more than 200 mg/dL in a nonstressed, ambulatory subject supports the diagnosis of Diabetes Mellitus. ADA recommended reference rangePerformed By: #### LIPID, TSH3 wRFLX, CBC, UBZH11KT, T4F, CMP, MFUO67AVZ, LDLD, A1C WTH eA #### [facility] [address] [place] [address] USAPotassium [Moles/Vol]4.1 mmol/LNormal3.5-5.1FSelect Medical Specialty Hospital - Cleveland-FairhillComment on above:Performed By: #### LIPID, TSH3 wRFLX, CBC, GEMK03GC, T4F, CMP, EVFN63IKQ, LDLD, A1C WTH eA #### [place] [address] USAProtein [Mass/Vol]6.6 g/dLNormal6.1-7.9Marymount HospitalComment on above:Performed By: #### LIPID, TSH3 wRFLX, CBC, YHLG65MQ, T4F, CMP, AZYB27VPO, LDLD, A1C WTH eA #### [facility] [address] [place] [address] USASodium [Moles/Vol]133 mmol/HWhd984-116PnwohzpxaMarymount HospitalComment on above:Performed By: #### LIPID, TSH3 wRFLX, CBC, GVNX23YP, T4F, CMP, YLRU01TCT, LDLD, A1C WTH eA #### [place] [id number] USAUrea nitrogen [Mass/Vol]6 mg/dLLow9-23Marymount HospitalComment on above:Performed By: #### LIPID, TSH3 wRFLX, CBC, KQAA87KJ, T4F, CMP, AAZJ72CWS, LDLD, A1C WTH eA #### [place] [address] USACreatinine and Glomerular filtration rate.predicted panel (S/P/Bld)Ordered By: Medhat Baltazar on 39-24-5845Ghovwnbeik [Mass/Vol]0.73 mg/dL0.64-1.27Marymount HospitalEosinophils Auto (Bld) [#/Vol] Ordered By: Medhat Baltazar on 07-81-5079Xumbzytppeg (Bld) [#/Vol]0.0 10*3/uL 0.0-0.45Marymount HospitalEosinophils/100 WBC Auto (Bld)Ordered By: Medhat Baltazar on 44-54-7230Yzlnfmqeico/100 WBC (Bld)0.4 %.Marymount HospitalErythrocyte distribution width Auto (RBC) [Ratio]Ordered By: Medhat Baltazar on 65-97-0742Mpulycguoil distribution width (RBC) [Ratio] 13.7 %12.0-14.8Marymount HospitalEstimated glomerular filtration rate (GFR) non- AmericanOrdered By: Medhat Baltazar on 03-12-2022 GFR/1.73 sq M.predicted among non-blacks MDRD (S/P/Bld) [Vol rate/Area]> 60 mL/MinMarymount HospitalFolate [Mass/volume] in Serum or Plasma Ordered By: Medhat Baltazar on 54-51-3433Qtmdee [Mass/Vol]7.2 ng/mL>5.9 Marymount HospitalComment on above:Folate reference range: >5.9 ng/ml The WHO technical consultation on folate and vitamin b12 deficiencies has determined that folate concentrations less than 4 ng/ml are considered deficient.Folate reference range: >5.9 ng/mlThe WHO technical consultation on folate and vitamin y61srflsicinnzb has determined that folate concentrations lessthan 4 ng/ml are considered deficient.Free T4 (Free Thyroxine)on 59-19-5593Zjcp T4 [Mass/Vol]0.41 ng/dLLow0.61-1.12Marymount HospitalComment on above:Performed By: #### LIPID, TSH3 wRFLX, CBC, UHVN95NV, T4F, CMP, GAKN54XGH, LDLD, A1C WTH eA #### [facility] [address] [place] [address] USAGlobulin Calc (S) [Mass/Vol]Ordered By: Medhat Baltazar on 52-26-4442Zgoutipr (S) [Mass/Vol]2.9 g/dLMarymount Hospital Glucose mean value [Mass/volume] in Blood Estimated from glycated hemoglobin Ordered By: Medhat Baltazar on 49-94-7313Vjnagju glucose Estimated from glycated hemoglobin (Bld) [Mass/Vol]111 mg/dLMarymount Hospital Hematocrit Auto (Bld) [Volume fraction]Ordered By: Medhat Baltazar on 08-40-4069Otushdmanx (Bld) [Volume fraction]43.7 %38.8-50.0Marymount HospitalHemoglobin A1c percentageOrdered By: Medhat Baltazar on 72-16-6854VtA2c (Bld) [Mass fraction]5.5 %4.3-5.6FSelect Medical Specialty Hospital - Cleveland-FairhillComment on above:Increased risk for diabetes: 5.7 - 6.4 diabetes: >6.4 glycemic control for adults with diabetes: <7.0Increased risk for diabetes: 5.7 - 6.4diabetes: >6.4glycemic control for adults with diabetes: <7.0LDL Cholesterol Measuredon 45-30-3344KTK Cholesterol Ebwkoohf60 mg/dLNormal0-100 Marymount HospitalComment on above:Result Comment: LDL ATP III CLASSIFICATION LDL less than 100 mg/dL Optimal LDL 100-129 mg/dL Near or above optimal LDL 130-159 mg/dL Borderline high LDL 160-189 mg/dL High LDL greater than 189 mg/dL Very highPerformed By: #### LIPID, TSH3 wRFLX, CBC, NLSW22SP, T4F, CMP, YHPG01QJF, LDLD, A1C WT eA #### [facility] [address] [place] [address] USALaboratory - Chemistry and Chemistry - challengeOrdered By: Medhat Baltazar on 91-47-3250Vqauytqdr (Vitamin B12) [Mass/Vol]376 pg/mL 180-914Marymount HospitalLaboratory - Hematology and Cell counts Ordered By: Medhat Baltazar on 49-18-6558Rcshzlpuj RBC/100 WBC (Bld) [Ratio]0.1 %0-0.5FSelect Medical Specialty Hospital - Cleveland-FairhillLipid Panelon 67-50-4348Qouzqqvbxzu [Mass/Vol]157 mg/kULzvpfh638-724CncieazvcMarymount HospitalComment on above:Result Comment: Chol less than 200 mg/dl low risk Chol 201-239 mg/dl borderline risk Chol 240 mg/dl and greater high riskPerformed By: #### LIPID, TSH3 wRFLX, CBC, COOW34VU, T4F, CMP, ZLGV95KID, LDLD, A1C WTH eA #### [facility] [address] [place] [address] USACholesterol in HDL [Mass/Vol]66 mg/gGUiedqu74-91LoixzkenrMarymount HospitalComment on above:Result Comment: HDL CHOL ATP-III CLASSIFICATION Cardiovascular Risk HDL > or equal to 60 mg/dL LOW HDL < 40 mg/dL HIGHPerformed By: #### LIPID, TSH3 wRFLX, CBC, LBUY03CG, T4F, CMP, UNDJ33LZM, LDLD, A1C WTH eA #### [facility] [address] [place] [address] USACholesterol.total/Cholesterol in HDL [Mass ratio]2.4 {ratio}Normal<5.0Marymount HospitalComment on above:Performed By: #### LIPID, TSH3 wRFLX, CBC, TEWR02RD, T4F, CMP, VGDZ50EWF, LDLD, A1C WTH eA #### [facility] [address] [place] [address] USALDL Cholesterol,Uibiijjpoj80 mg/dLNormal0-100Marymount HospitalComment on above:Result Comment: LDL ATP III CLASSIFICATION LDL less than 100 mg/dL Optimal LDL 100-129 mg/dL Near or above optimal LDL 130-159 mg/dL Borderline high LDL 160-189 mg/dL High LDL greater than 189 mg/dL Very highPerformed By: #### LIPID, TSH3 wRFLX, CBC, AHUQ28DX, T4F, CMP, GEQX81RSE, LDLD, A1C WTH eA #### [facility] [address] [place] [address] USATriglyceride w/Njnmkt394 mg/pFSliv58-264RhphguwnhMarymount HospitalComment on above:Result Comment: TRIG ATP III CLASSIFICATION TRIG less than 150 mg/dL Normal TRIG 150-199 mg/dL Borderline high TRIG 200-500 mg/dL High TRIG greater than 500 mg/dL Very high Standard traceable to the Center for Disease Conrtrol and Prevention (CDC) test method.Performed By: #### LIPID, TSH3 wRFLX, CBC, OQZV90RZ, T4F, CMP, KPCE18AZV, LDLD, A1C [facility] eA #### [facility] [address] [place] [address] USAVLDL RSAJWOPHLXT51 mg/dLNormalMarymount HospitalComment on above:Performed By: #### LIPID, TSH3 wRFLX, CBC, EAXD43VU, T4F, CMP, XTVG12ZGH, LDLD, A1C [facility] eA #### [facility] [address] [place] [id number] USALymphocytes Auto (Bld) [#/Vol]Ordered By: Medhat Baltazar on 01-68-8985Inzsypjsalp (Bld) [#/Vol]1.6 10*3/uL1.00-4.8Marymount HospitalLymphocytes/100 WBC Auto (Bld)Ordered By: Medhat Baltazar on 95-22-1983Wljqkbaxeil/100 WBC (Bld)29.2 %.[facility] Auto (RBC) [Entitic mass]Ordered By: Medhat Baltazar on 92-05-5031GMB (RBC) [Entitic mass]34.1 pg27.5-35.2FFayette County Memorial HospitalHC Auto (RBC) [Mass/Vol]Ordered By: Medhat Baltazar on 05-17-5487DAAF (RBC) [Mass/Vol]33.8 g/dL32.5-35.6FFayette County Memorial HospitalV Auto (RBC) [Entitic vol] Ordered By: Medhat Baltazar on 14-18-4071LGU (RBC) [Entitic vol]101.1 fL 83.5-101Marymount HospitalMonocytes Auto (Bld) [#/Vol]Ordered By: Medhat Baltazar on 12-47-3551Lanbleyyj (Bld) [#/Vol]0.4 10*3/uL0.0-0.8 Marymount HospitalMonocytes/100 WBC Auto (Bld)Ordered By: Medhat Baltazar on 73-25-9501Nycehkriu/100 WBC (Bld)7.0 %.Marymount HospitalNeutrophils Auto (Bld) [#/Vol]Ordered By: Medhat Baltazar on 09-29-6098Fjowaxutmwi (Bld) [#/Vol]3.3 10*3/uL1.8-7.7FSelect Medical Specialty Hospital - Cleveland-FairhillNeutrophils/100 WBC Auto (Bld)Ordered By: Medhat Baltazar on 03-12-2022 Neutrophils/100 WBC (Bld)62.8 %.Marymount HospitalNo Panel InformationOrdered By: Medhat Baltazar on 78-29-616507255590-Utazkwk Vitamin D Total 7.9 ng/mW82-212PnmfczkioMarymount HospitalComment on above:VITAMIN D STATUS 25(OH)VITAMIN D RANGE (ng/mL) Deficient <20 Insufficient 20 to <30 Sufficient 30 to 100 Reference: Franklyn oJseph, Isaac FRANCES, et al. Evaluation,treatment, and prevention of vitamin D deficiency; an Endocrine Society clinical practice guideline. JCEM. 2010; 96(7):1911-30.VITAMIN D STATUS 25(OH)VITAMIN D RANGE (ng/mL) Deficient <20 Insufficient 20 to <09Woohwkgehz52 to 100Reference: Franklyn Joseph, Isaac FRANCES, et al. Evaluation,treatment, and prevention of vitamin D deficiency; an Endocrine Society clinical practice guideline. JCEM. 2010; 96(7):1911-30.Estimated GFR ()> 60 mL/MinMarymount HospitalComment on above: GFR estimated reference range: According to KDOQI guidelines, <60 ml/min/1.73m2 is sufficient todiagnose a patient with chronic kidney disease.Pharmacy Creatinine Clearance (ChemN/AFSelect Medical Specialty Hospital - Cleveland-FairhillPlatelet mean volume Auto (Bld) [Entitic vol]Ordered By: Medhat Baltazar on 03-12-2022 Platelet mean volume (Bld) [Entitic vol]8.7 fL6.6-10.1FSelect Medical Specialty Hospital - Cleveland-FairhillPlatelets Auto (Bld) [#/Vol]Ordered By: Medhat Baltazar on 03-12-2022 Platelets (Bld) [#/Vol]218 10*3/lJ049-345FznxjahypMarymount Hospital Protein [Mass/volume] in Serum or PlasmaOrdered By: Medhat Baltazar on 35-24-5982Utmpuex [Mass/Vol]6.6 g/dL6.1-7.9Marymount HospitalRBC Auto (Bld) [#/Vol]Ordered By: Medhat Baltazar on 52-98-5938MCG (Bld) [#/Vol] 4.33 10*6/uL3.90-5.60Shelby Memorial Hospitalerum or plasma alanine aminotransferase measurement without P-5'-P (enzymatic activiOrdered By: Medhat Baltazar on 09-36-4466LIE No additional P-5'-P [Catalytic activity/Vol] 39 U/A54-74GzucvjmuaShelby Memorial Hospitalerum or plasma albumin/globulin mass ratioOrdered By: Medhat Baltazar on 49-04-4408Ajonhaq/Globulin [Mass ratio]1.3 {ratio}[facility] Hospitalerum or plasma alkaline phosphatase measurement (enzymatic activity/volume)Ordered By: Medhat Baltazar on 04-47-1251KVJ [Catalytic activity/Vol]87 U/A20-23DbgnajxxsShelby Memorial Hospitalerum or plasma aspartate aminotransferase measurement (enzymatic activity/volume)Ordered By: Medhat Baltazar on 31-57-5700JPH [Catalytic activity/Vol]23 U/U74-02JgoqarbsyShelby Memorial Hospitalerum or plasma calcium measurement (mass/volume)Ordered By: Medhat Baltazar on 94-72-3374Fofbyuy [Mass/Vol]9.1 mg/dL8.2-10.2FTrumbull Memorial Hospitalerum or plasma chloride measurement (moles/volume)Ordered By: Medhat Baltazar on 03-12-2022 Chloride [Moles/Vol]104 mmol/I79-239NqvvgxpfbShelby Memorial Hospitalerum or plasma cholesterol in LDL measurement (mass/volume)Ordered By: Medhat Baltazar on 38-94-1208Lnganepakzg in LDL [Mass/Vol]64 mg/dL0-100Mary[facility] HospitalComment on above:LDL ATP III CLASSIFICATION LDL less than 100 mg/dL Optimal LDL 100-129 mg/dL Near or above optimal LDL 130-159 mg/dL Borderline high LDL 160-189 mg/dL High LDL greater than 189 mg/dL Very highLDL ATP III CLASSIFICATIONLDL less than 100 mg/dL OptimalLDL 100-129 mg/dL Near or above rjrgphmWPH892-839 mg/dL Borderline highLDL 160-189 mg/dL HighLDL greater than 189 mg/dL Very highSerum or plasma glucose measurement (mass/volume)Ordered By: Medhat Baltazar on 03-12-2022 Glucose [Mass/Vol]86 mg/mB85-344EdtaounqiMarymount HospitalComment on above:ADA recommended reference range Random [...] (HDL) cholesterol measurementOrdered By: Medhat Baltazar on 60-49-0215Bqvrzyxearz in HDL [Mass/Vol]66 mg/eP63-53UwsakewktMarymount HospitalComment on above:HDL CHOL ATP-III CLASSIFICATION Cardiovascular Risk HDL > or equal to 60 mg/dL LOW HDL < 40 mg/dL HIGHHDL CHOL ATP-III CLASSIFICATION Cardiovascular RiskHDL > or equal to 60 mg/dL LOWHDL < 40 mg/dL HIGHSerum or plasma potassium measurement (moles/volume)Ordered By: Medhat Baltazar on 89-72-9928Exxukdvzd [Moles/Vol]4.1 mmol/L3.5-5.1FTrumbull Memorial Hospitalerum or plasma sodium measurement (moles/volume)Ordered By: Medhat Baltazar on 11-67-2161Ixpkzs [Moles/Vol]133 mmol/J326-339MqncswpxzShelby Memorial Hospitalerum or plasma total bilirubin measurement (mass/volume)Ordered By: Medhat Baltazar on 73-29-8341Sohabmwhx [Mass/Vol]1.5 mg/dL0.3-1.2FSelect Medical Specialty Hospital - [facility] Comment on above:Samples from patients who have taken Naproxen have shown spurious elevation in Total Bilirubin levels. A metabolite of Naproxen, O- desmethylnaproxen, has been shown to interfere with the Jenlakisha-Pb method for measuring Total Bilirubin.Serum or plasma total carbon dioxide measurement (moles/volume)Ordered By: Medhat Baltazar on 49-85-5999KW3 [Moles/Vol]20.0 mmol/L22.0-30.0Shelby Memorial Hospitalerum or plasma total cholesterol/high density lipoprotein (HDL) cholesterol mass ratOrdered By: Medhat Baltazar on 74-18-9320Ortemqoepjl.total/Cholesterol in HDL [Mass ratio] 2.4 {ratio}<5.0Shelby Memorial Hospitalerum or plasma urea nitrogen measurement (mass/volume)Ordered By: Medhat Baltazar on 22-14-5527Mcjq nitrogen [Mass/Vol]6 mg/dL9-23Marymount HospitalTS DL <= 0.005 mIU/L Qn Ordered By: Medhat Baltazar on 70-54-7858DBL Qn44.00 m[IU]/L0.45-5.33Marymount HospitalThyroid Stim Hormone w/Rflxon 19-94-9923Xubdtxd Stim Hormone w/Rflx44.00 u[iU]/mLHigh0.45-5.33[facility] Comment on above:Performed By: #### LIPID, TSH3 wRFLX, CBC, BTIZ59SE, T4F, CMP, OHPI58BUF, LDLD, A1C WTH eA #### [facility] [address] [place] [address] USAThyroxine (T4) free [Mass/volume] in Serum or Plasma Ordered By: Medhat Baltazar on 01-85-8702Izbg T4 [Mass/Vol]0.41 ng/dL0.61-1.12 [facility] HospitalTriglyceride [Mass/volume] in Serum or Plasma Ordered By: Medhat Baltazar on 24-82-1635Finvhtoawgwm [Mass/Vol]243 mg/aO94-004 [facility] HospitalComment on above:TRIG ATP III CLASSIFICATION TRIG [...] and Prevention (CDC) test method.Vit. B12/Folate Profileon 18-78-1277Lsnbwspez (Vitamin B12) [Mass/Vol]376 pg/oFNgbsys764-953EyjhlptkqMarymount HospitalComment on above:Performed By: #### LIPID, TSH3 wRFLX, CBC, FAVZ68QH, T4F, CMP, NSYZ58TXC, LDLD, A1C WTH eA #### [facility] [address] [place] [address] USAFolate7.2 ng/mLNormal>5.9[facility] Comment on above:Result Comment: Folate reference range: >5.9 ng/ml The WHO technical consultation on folate and vitamin b12 deficiencies has determined that folate concentrations less than 4 ng/ml are considered deficient.Performed By: #### LIPID, TSH3 wRFLX, CBC, LFIZ46FY, T4F, CMP, JUJG63NQB, LDLD, A1C WTH eA #### [facility] [address] [place] [address] USAVitamin D 25 Hydroxy Totalon 43-03-9628Qqhsrzc D 25 Hydroxy Total7.9 ng/zWUjd82-295DmhwbjydiMarymount HospitalComment on above:Result Comment: VITAMIN D STATUS 25(OH)VITAMIN D RANGE (ng/mL) Deficient <20 Insufficient 20 to <30 Sufficient 30 to 100 Reference: Jay MF,Franklyn NC, Isaac FRANCES, et al. Evaluation,treatment, and prevention of vitamin D deficiency; an Endocrine Society clinical practice guideline. JCEM. 2010; 96(7):1911-30. PERFORMED BY: [facility] [address] [place] [address] PATHOLOGIST HYDRAULIC GOVERNOR ASSEMBLER MARCO ANTONIO FINLEY M.D.Performed By: #### LIPID, TSH3 wRFLX, CBC, AYHW22DY, T4F, CMP, VXML46LPE, LDLD, A1C WTH eA #### [facility] [address] [place] [address] USAOffice Visit (Cardiology)on 67-33-6474Ipovso-up visit Diagnoses/Problems Assessed Atherosclerosis of coronary artery of rosebud heart without angina pectoris (414.01) (I25.10) Essential [...] week Orders Atherosclerosis of coronary artery of rosebud heart without angina pectoris Renew: Aspirin Low [...] we can help. You may also call 4-149-ISAE-NOW for free resources and assistance.; Status:Complete - [...] Ondansetro (more content not included)...NormalUH TouchworksTobacco Screening.on 14-54-1436Sfuxl depression screening assessmentNo-[facility] [employer] 250 DO Work Phone: Tobacco use status CPHSb) NoM-[facility] 250 DO Work Phone: CB AUTO DIFFon 13-08-8226MBGC #0.0 103/ulNormal 0.0-0.1The [facility] HospitalComment on above:Performed By: #### LACT #### [facility] [address] [place] [address] Dr. Wilda Yousifphils/100 WBC (Bld)0.3 %Normal0.2-2.0The [facility] Comment on above:Performed By: #### LACT #### [facility] [address] [place] [address] Dr. Wilda Carr #0.0 103/ulNormal0.0-0.7The [facility] HospitalComment on above: Performed By: #### LACT #### [facility] [address] [address] [address] Wilda Cantuosinophils/100 WBC (Bld)0.3 %Critically low0.9-7.0The [facility] Campusment on above:Performed By: #### LACT #### [facility] [address] [place] [address] Dr. Wilda Canturythrocyte distribution width (RBC) [Ratio]13.5 %Mzmran72.0-15.0 The [facility] HospitalComment on above:Performed By: #### LACT #### [facility] [address] [place] [address] Dr. Wilda PatelHematocrit (Bld) [Volume fraction]42.5 %Qpiahf97.0-54.0The [facility] HospitalComment on above:Performed By: #### LACT #### [facility] [address] [place] [address] Dr. Wilda PatelHemoglobin (Bld) [Mass/Vol]14.5 g/eVZfkrpw46.0-18.0The [facility] Campusment on above:Performed By: #### LACT #### [facility] [address] [place] [address] Dr. Wilda Candelario #0.05 10e3/ulCritically high0.00-0.03The [facility] Comment on above:Performed By: #### LACT #### [facility] [address] [place] [address] Dr. Wilda Candelario %0.5 %Normal0.0-0.5The [facility] Campusment on above: Performed By: #### LACT #### [facility] [address] [place] [address] Dr. Wilda BarrettMPH #1.9 103/ulNormal1.2-3.8The [facility] HospitalComment on above:Performed By: #### LACT #### [facility] [address] [place] [address] Dr. Wilda Barrettmphocytes/100 WBC (Bld)17.6 %Critically low20.5-60.0The [facility] HospitalComment on above:Performed By: #### LACT #### [facility] [address] [place] [address] Dr. Wilda Moore DIFF REQNONormalThe [facility] HospitalComment on above: Performed By: #### LACT #### [facility] [address] [place] [address] Dr. Wilda Whitaker (RBC) [Entitic mass]33.1 pkVkntnt25.9-34.0The [facility] HospitalComment on above:Performed By: #### LACT #### [facility] [address] [place] [address] Dr. Wilda Whitaker (RBC) [Mass/Vol]34.1 g/yJFhuwiz06.9-35.2The [facility] HospitalComment on above:Performed By: #### LACT #### [facility] [address] [place] [address] Dr. Wilda Whitaker (RBC) [Entitic vol]97.0 fLCritically high80.0-94.0D[facility] Ridge Medical CenterComment on above:Performed By: #### LACT #### [facility] [address] [place] [address] Dr. Wilda Georges #0.9 103/ulCritically high0.3-0.8ThCommunity Memorial Hospital Comment on above:Performed By: #### LACT #### [facility] [address] [place] [address] Dr. Wilda Castroocytes/100 WBC (Bld)8.0 %Normal1.7-12.0[facility] Comment on above:Performed By: #### LACT #### [facility] [address] [place] [address] Dr. Wilda Berry #7.9 103/ulCritically high1.4-6.5ThCommunity Memorial Hospital Comment on above:Performed By: #### LACT #### [facility] [address] [place] [address] Dr. Wilda Coronadoutrophils/100 WBC (Bld)73.3 %Gxwmyk50.0-75.0[facility] Medical CenterComment on above:Performed By: #### LACT #### [facility] [address] [address] [address] Wilda Acostalet mean volume (Bld) [Entitic vol]9.3 fLCritically low 9.5-13.5The [facility] HospitalComment on above:Performed By: #### LACT #### [facility] [address] [place] [address] Dr. Wilda PatelPLT261 103/ehNsdzek740-152Xna [facility] HospitalComment on above: Performed By: #### LACT #### [facility] [address] [place] [address] Dr. Wilda PatelRBC4.38 106/ulCritically low4.70-6.10The [facility] HospitalComment on above:Performed By: #### LACT #### [facility] [address] [place] [address] Dr. Wilda PatelWBC10.8 103/ulNormal4.0-11.0The [facility] HospitalComment on above:Performed By: #### LACT #### [facility] [address] [place] [address] Dr. Wilda PatelCT ABD/PELV W CONon 95-04-3189RP ABD/PELV W CONCT ABDOMEN AND PELVIS WITH [...] Electronically authenticated by: CLAIR RAMIREZ Date: 2021-07-29 19:33TriHealthCULTURE BLOODon 25-63-7642Ohfqhkjkafa examination of blood, cultureCulture Observations: NO GROWTH AT 5 DAYS.NormalDiley Ridge Medical CenterComment on above:Performed By: #### CMREP #### [facility] [address] [place] [address] Dr. Wilda PatelMicroscopic examination of blood, cultureCulture Observations: NO GROWTH AT 5 DAYS.NormalThe [facility] HospitalComment on above:Performed By: #### CMREP #### [facility] [address] [place] [address] Dr. Wilda PatelCovid-19 PCR ([facility]VDM[facility])on 30-17-0377CZVQ-CoV-2 (COVID-19) RNA SHREYA+probe Ql (Unsp spec)Not detectedNormalNOT DETECTEDDiley Ridge Medical Center Comment on above:Result Comment: This test is not yet approved or cleared by the [place] FDA. When there are no FDA-approved or cleared tests available, and other criteria are met, FDA can make tests available under an emergency access mechanism called an Emergency Use Authorization (EUA). The EUA for this test is supported by the [place] of Health and Human Service's (HHS's) declaration [...] consistent with SARS-CoV-2.Performed By: #### CVDTBH #### [facility] [address] [place] [address] Dr. Wilda Holden URINE PROFILEon 01-56-4171Goouyrkgq Ql (U)NegativeNormal NEGATIVEDiley Ridge Medical CenterComment on above:Performed By: #### ERUR #### [facility] [address] [place] [address] Dr. Wilda Walton (U)CLEARNormalCLEARDiley Ridge Medical CenterComment on above: Performed By: #### ERUR #### [facility] [address] [place] [address] Dr. Wilda Calderon (U)YELLOWNormalYELLOWDiley Ridge Medical CenterComment on above: Performed By: #### ERUR #### [facility] [address] [place] [address] Dr. Wilda Klein micrscopic examination will be performed if indicated. NormalDiley Ridge Medical CenterComment on above:Performed By: #### ERUR #### [facility] [address] [place] [address] Dr. Wilda PatelGlucose Ql (U)NegativeNormalNEGATIVEDiley Ridge Medical CenterComment on above:Performed By: #### ERUR #### [facility] [address] [place] [address] Dr. Wilda PatelHemoglobin Ql (U)NegativeNormalNEGATIVEUniversity Hospitals Health System on above:Performed By: #### ERUR #### [facility] [address] [address] [address] Wilda Morocho Ql (U)NegativeNormalNEGATIVEDiley Ridge Medical CenterComment on above:Performed By: #### ERUR #### [facility] [address] [place] [address] Dr. Wilda PatelLEUKOCYTESNegativeNormalNEGATIVEDiley Ridge Medical CenterComment on above:Performed By: #### ERUR #### [facility] [address] [place] [address] Dr. Wilda Ortiztrite Ql (U)NegativeNormalNEGATIVEThe [facility] HospitalComment on above:Performed By: #### ERUR #### [facility] [address] [place] [address] Dr. Wilda PatelpH (U)5.5 [pH]Normal5-9The [facility] HospitalComment on above: Performed By: #### ERUR #### [facility] [address] [place] [address] Dr. Wilda PatelSPEC GRAVITY>=1.661Xxfjxddq7.005-<=1.025The [facility] Comment on above:Performed By: #### ERUR #### [facility] [address] [place] [address] Dr. Wilda Duff PROTEINNegativeRhameNEGATIVE/ TRACEDiley Ridge Medical Center Comment on above:Performed By: #### ERUR #### [facility] [address] [place] [address] Dr. Wilda Hoang MICRO INDNOT INDICATEDTriHealthComment on above:Performed By: #### ERUR #### [facility] [address] [place] [address] Dr. Wilda Kaurbilinogen Qn (U)0.2 {Maria Luisa'U}/dLNormal0.2 - 1.0D[facility] Ridge Medical CenterComment on above:Performed By: #### ERUR #### [facility] [address] [place] [address] Dr. Wilda TolliverCTATE/LACTIC ACIDon 96-95-9234Bgssims [Moles/Vol]2.2 mmol/L Critically high0.7-2.0The [facility] HospitalComment on above:Performed By: #### LACT #### [facility] [address] [address] [address] Wilda Álvarez 14(COMP METB)on 35-89-8674Qsxxlwc [Mass/Vol]2.9 g/dL Critically low3.5-5.0The [facility] HospitalComment on above:Performed By: #### CMP #### [facility] [address] [address] [address] Wilda PatelAlbumin/Globulin [Mass ratio]0.7 {ratio}NormalThe [facility] HospitalComment on above:Performed By: #### CMP #### [facility] [address] [place] [address] Dr. Wilda FragaP [Catalytic activity/Vol]137 U/LCritically yitv03-904Mkv [facility] HospitalComment on above:Performed By: #### CMP #### [facility] [address] [place] [address] Dr. Wilda FragaT [Catalytic activity/Vol]17 U/LCritically zjs53-69Ldk [facility] HospitalComment on above:Performed By: #### CMP #### [facility] [address] [place] [address] Dr. Wilda Nelson gap [Moles/Vol]14.8 mmol/LNormalThe [facility] Comment on above:Performed By: #### CMP #### [facility] [address] [place] [address] Dr. Wilda PatelAST [Catalytic activity/Vol]15 U/LCritically tsc25-12Hdd [facility] HospitalComment on above:Performed By: #### CMP #### [facility] [address] [address] [address] Wilda PatelBilirubin [Mass/Vol]0.7 mg/dLNormal0.2-1.3The [facility] Comment on above:Performed By: #### CMP #### [facility] [address] [address] [address] Wilda PatelCalcium [Mass/Vol]8.8 mg/dLNormal8.4-10.2The [facility] Comment on above:Performed By: #### CMP #### [facility] [address] [address] [address] Wilda PatelChloride [Moles/Vol]97 mmol/LCritically dix39-051Ewl [facility] HospitalComment on above:Performed By: #### CMP #### [facility] [address] [address] [address] Wilda PatelCO2 [Moles/Vol]26.9 mmol/IZxcwgq60.0-30.0The [facility] Comment on above:Performed By: #### CMP #### [facility] [address] [place] [address] Dr. Wilda PatelCreatinine [Mass/Vol]0.95 mg/dLNormal0.66-1.25The [facility] HospitalComment on above:Performed By: #### CMP #### [facility] [address] [address] [address] Astudillo ChangEGFR-AF CZECH>60Normal>=60The [facility] HospitalComment on above:Performed By: #### CMP #### [facility] [address] [place] [address] Dr. Wilda CantuGFR-NON AF CZECH>60Normal>=60The [facility] HospitalComment on above:Performed By: #### CMP #### [facility] [address] [place] [address] Dr. Wilda PatelGlobulin (S) [Mass/Vol]4.2 g/dLNormalThe [facility] HospitalComment on above:Performed By: #### CMP #### [facility] [address] [place] [address] Dr. Wilda PatelGlucose [Mass/Vol]97 mg/sPShbozo39-310Bms [facility] Comment on above:Performed By: #### CMP #### [facility] [address] [place] [address] Dr. Wilda PatelPotassium [Moles/Vol]3.7 mmol/LNormal3.4-5.0The [facility] Comment on above:Performed By: #### CMP #### [facility] [address] [place], [place] [address] Dr. Wilda PatelProtein [Mass/Vol]7.1 g/dLNormal6.1-8.2The [facility] Comment on above:Performed By: #### CMP #### [facility] [address] [place], [place] [address] Dr. Wilda PatelSodium [Moles/Vol]135 mmol/LCritically tcz343-389Skl [facility] HospitalComment on above:Performed By: #### CMP #### [facility] [address] [place], [place] [address] Dr. Wilda PatelUrea nitrogen [Mass/Vol]11.0 mg/dLNormal9.0-20.0The [facility] HospitalComment on above:Performed By: #### CMP #### [facility] [address] [place] [address] Dr. Wilda Cobos nitrogen/Creatinine [Mass ratio]11.6 mg/mgNormalThe [facility] HospitalComment on above:Performed By: #### CMP #### [facility] [address] [place], [place] [address] Dr. Wilda PatelTobaccesequiel Screening.on 39-19-9568Cyweyoz use status CPb) [facility] [address] DO Work Phone: Vital Signs Date TimeVital SignValuePerforming OewbainemQlrmyogb26-48-7742 12:48-0400Body wikypw829.6 cmTimothy Hialeah DO Work Phone: noms Wnxxfpjdlv62-52-2861 12:48-0400Body mass index (BMI) [Ratio]41.32 kg/c4Pgczrpy Hialeah DO Work Phone: noms Dqjodlqixf33-67-5544 12:48-0400Body temperature 97.39 [degF]Amber Hialeah DO Work Phone: [phone]08-13-2025 12:48-0400Body ecfsxz690.12 kgTimothy Hialeah DO Work Phone: [phone] [place], [place] [address]Xxsmclothg40-05-9681 12:48-0400Diastolic blood jrqusoll70 mm[Hg]Amber Hialeah DO Work Phone: [phone] [place], [place] [address]08-13-2025 12:48-0400Heart gwlx177 /min Amber Hialeah DO Work Phone: [phone])[address] [place], [place] [address]08-13-2025 12:48-3684WmW6% (BldA) [Mass fraction]95 %Amber Hialeah DO Work Phone: [phone])[address] [place], [place] [address]08-13-2025 12:48-0400Systolic blood yvhcdsqp542 mm[Hg]Amber Hialeah DO Work Phone: [phone] [place], [place] [address]05-09-2025 13:26-0400Blood Pressure LocationThomas Johnson [facility]05-09[facility] 13:26-0400 Diastolic blood wbrgwoha32 mm[Hg]Juan Francisco Johnson [facility]05-09-2025 13:26-0400Heart jbal762 /minThomas Johnson [facility]05-09-2025 13:26-0400 Respiratory rate22 /minThomas Johnson [facility]05-09-2025 13:26-3811YyR8% (BldA) [Mass fraction]96 %Juan Francisco Johnson [facility]05-09-2025 13:26-0400 Systolic blood agmjxajo049 mm[Hg]Juan Francisco Johnson [facility]01-30-2025 13:32-0500 Diastolic blood vfqffihr31 mm[Hg]Blanco Lazcano [facility]01-30-2025 13:32-0500Heart rate98 /minMikhail Chingus [address] [place], [place] 1153001-30-2025 13:32-0500 Respiratory rate18 /minMikhail Kirnus [address] [place], [place] 1153001-30-2025 13:32-7977OoC9% (BldA) [Mass fraction]98 %Blanco Kirnus [address] [place], [place] 1153001-30-2025 13:32-0500 Systolic blood pguxscyg477 mm[Hg]Blanco Kirnus [address] [place], [place] 1153001-07-2025 07:28-0500Blood Pressure LocationMikhail Kirnus [address] [place], [place] 1153001-07-2025 07:28-0500 Diastolic blood rxdimwkr95 mm[Hg]Blanco Kirnus [address] [place], [place] 1153001-07-2025 07:28-0500Heart bkar294 /minMikhail Kirnus [address] [place], [place] 1153001-07-2025 07:28-0500 Respiratory rate18 /minMikhail Kirnus [address] [place], [place] 1153001-07-2025 07:28-4341VaT0% (BldA) [Mass fraction]97 %Blanco Kirnus [address] [place], [place] 1153001-07-2025 07:28-0500 Systolic blood rmozewss316 mm[Hg]Blanco Kirnus [address] [place], [place] 1153010-30-2024 13:37-0400 Diastolic blood obfdqlrz07 mm[Hg]Blanco Kirnus [address] [place], [place] 1153010-30-2024 13:37-0400Heart baso767 /minMikhail Kirnus [address] [place], [place] 1153010-30-2024 13:37-0400 Respiratory rate16 /minMikhail Kirnus [facility]10-30-2024 13:37-9736RkD9% (BldA) [Mass fraction]96 %Blanco Lazcano [facility]10-30-2024 13:37-0400 Systolic blood mm[Hg]Blanco Lazcano [facility]10-02-2024 11:00-0400Body nijeyz014.6 cmLeanne Edvin DO Work Phone: [facility] HospitalNwrwwaerhh80-40-2625 11:00-0400Body mass index (BMI) [Ratio]40.35 kg/f9Fshhhz Edvin DO Work Phone: [facility] HospitalYloozoupxl71-55-4835 11:00-0400Body fmodia814.4 kgLeanne Edvin DO Work Phone: [facility] HospitalBvhjkjeimm67-23-7099 11:00-0400Diastolic blood lygmiwvu65 mm[Hg]Misti Edvin DO Work Phone: [facility] HospitalBtnfcxjffn68-15-6191 11:00-0400Heart rate84 /min Misti Edvin DO Work Phone: [facility] HospitalGvtdnotogi28-76-1721 11:00-1523JyJ7% (BldA) [Mass fraction]93 %Misti Edvin DO Work Phone: [facility] HospitalZufarsonga25-32-3418 11:00-0400Systolic blood kkdnvram828 mm[Hg]Misti Edvin DO Work Phone: [facility] HospitalUltzkmjkiy14-69-0022 15:27-0400Body ufanwt092.6 cmTimothy Hialeah DO Work Phone: noRipley [facility] HospitalItyxvxzuqn98-72-8941 15:27-0400Body mass index (BMI) [Ratio]38.09 kg/i3Ukvqwza Hialeah DO Work Phone: noRipley County Memorial HospitalGueokmstyb80-15-7175 15:27-0400Body temperature 96.49 [degF]Amber Hialeah DO Work Phone: [facility] HospitalInutqrploe15-05-1784 15:27-0400Body sqfyul004.05 kgTimothy Hialeah DO Work Phone: [facility] HospitalFavjyvufaz20-94-7468 15:27-0400Diastolic blood dbxzdear58 mm[Hg]Amber Hialeah DO Work Phone: [facility] HospitalZutfcjokkd08-49-4341 15:27-0400Heart kcfy008 /min Amber Hialeah DO Work Phone: [facility] HospitalYnlrisuypf18-30-7137 15:27-0823QqZ5% (BldA) [Mass fraction]95 %Amber Hialeah DO Work Phone: noRipley County Memorial HospitalArmbaqlsid18-06-2549 15:27-0400Systolic blood pzdefjxu167 mm[Hg]Amber Hialeah DO Work Phone: noRipley County Memorial HospitalHshniwcium09-61-3350 14:09-0500Body sutuje038.64 cmReferring Provider [facility] DO Work Phone: [phone] 14:09-0500Body mass index (BMI) [Ratio]34.7 kg/d9Qznjhvdrq Provider [facility] [address] DO Work Phone: [phone]) 970-678501-25-2023 14:09-0500Body surface area Derived from formula2.06 a6Rjbmzawns Provider [facility] DO Work Phone: [phone] 14:09-0500Body uwbtia64.52 kgReferring Provider [facility] [address] DO Work Phone: 1(349) 811-519801-25-2023 14:09-0500Diastolic blood cygvgebu71 mm[Hg] Referring Provider [facility] 250 DO Work Phone: 1([phone]) 596-395201-25-2023 14:09-0500Heart rate84 /minReferring Provider [facility] DO Work Phone: 1(203) 309-902201-25-2023 14:09-0500Systolic blood yslnfxpw979 mm[Hg] Referring Provider [facility] [address] DO Work Phone: 1(261) 848-885506-15-2022 15:27-0400Body kpkayc449.64 cmReferring Provider [facility] DO Work Phone: [phone] 15:27-0400Body mass index (BMI) [Ratio] 35.02 kg/m7Xxhrmlspx Provider [facility] [facility] [place] [facility] 250 DO Work Phone: [phone] 15:27-0400Body surface area Derived from formula2.07 x7Dnhuuqyeb Provider [facility] 250 DO Work Phone: [phone])[phone]652 15:27-0400Body wkfuvd76.43 kgReferring Provider [facility] 250 DO Work Phone: [phone] 15:27-0400Diastolic blood wtqcqulx49 mm[Hg] Referring Provider [facility]-[place] 250 DO Work Phone: [phone]-7863 15:27-0400Heart rate84 /minReferring Provider [facility] 250 DO Work Phone: [phone] 15:27-0400Systolic blood pzzoitmm811 mm[Hg] Referring Provider [facility] 250 DO Work Phone: [phone] 11:50-0400Body vvacov021.6 cmTrauma QbkkdeldJsgntPfvopv92-84-1715 11:50-0400Body mass index (BMI) [Ratio]35.19 kg/m2 Trauma FgotkyqxUeoblKytjes56-81-6890 11:50-0400Body vmcawe48.88 kgTrauma TlhrbtjzEsinlXbcgrv53-58-4502 11:50-0400Diastolic blood xwycoyol51 mm[Hg]Trauma BvkltqyhFdftiWmssko95-50-6673 11:50-0400Heart pwgd664 /minTrauma Resident ShlnyJdrjkn58-18-1949 11:50-0400Respiratory rate18 /minTrauma Resident AkysfYtoglm21-89-5615 11:50-0400Systolic blood xorjwmpr904 mm[Hg]Trauma Resident NvtamDklstf73-70-8198 11:05-0500Body umwsez706.64 cmReferring Provider [facility] 250 DO Work Phone: [phone] 11:05-0500Body mass index (BMI) [Ratio] 35.83 kg/x5Gqyaacrue Provider [facility] 250 DO Work Phone: [phone] 11:05-0500Body surface area Derived from formula2.09 n9Dohukrivb Provider [facility] 250 DO Work Phone: [phone] 188-300912-13-2021 11:05-0500Body qksxiw715.7 kgReferring Provider [facility] 250 DO Work Phone: [phone] 11:05-0500Diastolic blood kkiupemv40 mm[Hg] Referring Provider [facility] 250 DO Work Phone: [phone] 366-286612-13-2021 11:05-0500Heart rate96 /minReferring Provider [facility] 250 DO Work Phone: [phone] 220-323712-13-2021 11:05-0500Systolic blood avhgwddp908 mm[Hg] Referring Provider [facility] 250 DO Work Phone: Encounters Encounter DateEncounter TypeCare ProviderFacilityStart: 05-24-2025 End: 00-76-8763gfxqrdkseuOcbxtl A SteinFacility:FTMCStart: 03-07-2025 End: 65-17-4355Vnufmf flowsheetAmber Cuellar DO Work Phone: NOMS [facility] 230Start: 03-07-2025 End: 81-41-7882Qfyfxd flowsheetTimclair Gomez [place] DO Work Phone: noms [facility] 230Start: 03-07-2025 End: 64-43-3978Tlgdhs outpatient visit 25 minutesTimothy Patricia [place] DO Work Phone: noms [facility] 230Comment on above: Chronic obstructive pulmonary disease, unspecified COPD type (HCC) (Primary Dx); Acquired hypothyroidism ; Impaired fasting blood sugar; Primary hypertensionStart: 03-07-2025 End: 93-17-4484ksdumglpgjYWIOMRM L CUTLERNot AvailableStart: 02-22-2025 End: 16-85-8299yxhnuwpybnNzmyrl A ElizabethFacility:FTMCStart: 02-21-2025 End: 49-74-1220NpprkhModarp Leah Edvin DO Work Phone: noms [place] OtolaryngologyComment on above:Chronic obstructive pulmonary disease, unspecified COPD type (HCC)Start: 12-01-2024 End: 50-74-0662vnyrklpbztJippxr A SteinFacility:FTMCStart: 12-01-2024 End: 77-64-4260Ycskhbi encounter procedureThomas A Elizabeth [facility] Start: 08-24-2024 End: 99-77-5399bftkwfsouuBU Blanco LazcanoFacility:FTMCStart: 08-24-2024 End: 07-47-9529Qzmfndc encounter procedureBlanco Lazcano [facility] Start: 08-01-2024 End: 39-08-4533Uaphecutp to same day surgery centerBlanco Lazcano [facility] Start: 08-01-2024 End: 57-59-6692gtpvomhrvrJxyobzk D KirnusFacility:FTMCStart: 07-24-2024 End: 43-14-3873clwfwhnmpaNdkconu D KirmadiFacility:FTMCStart: 07-24-2024 End: 96-77-0736Vaqmhyx encounter procedureBlanco Lazcano [facility] Start: 06-20-2024 End: 82-29-5999ujtfpsjpdhYC Blanco VerdinmadiFacility:FTMCStart: 06-20-2024 End: 06-10-8663Rcszuea encounter procedureBlanco Lazcano [facility] Start: 06-02-2024 End: 38-26-6461Bektnbzyg Result EncounterShazia MCKEON Work Phone: noms External Department UnsolicitedStart: 06-02-2024 End: 01-41-2129Tjoxjhqwv Result EncounterShazia MCKEON Work Phone: noms External Department UnsolicitedStart: 05-24-2024 End: 07-76-7851jmsudqfdfzMDWL NONEFacility:FTMCStart: 05-24-2024 End: 26-80-0188Uyfscqq encounter procedureBlanco Lazcano [facility] Start: 04-26-2024 End: 74-79-4226Ufqjdp flowsChandler Lynn Edvin DO Work Phone: noms PULMStart: 04-26-2024 End: 55-77-1284Isbfvf flowsChandler Lynn Edvin DO Work Phone: noms SH PULMStart: 04-26-2024 End: 34-11-4651Gucawf outpatient new 45 minutesMisti Pardo DO Work Phone: noms SH PULMComment on above:Chronic obstructive pulmonary disease, unspecified COPD type (CMS/HCC) (Primary Dx); COPD with acute exacerbation (CMS/HCC); HypersomnolenceStart: 04-26-2024 End: 36-18-6699yaloqmqbjoOJNYUG K STRACKNot AvailableStart: 01-12-2024 End: 17-35-0807Hozvet outpatient visit 25 minutesAmber Patricia Polo DO Work Phone: noMS [facility] 230Comment on above:COPD with acute exacerbation (CMS/HCC) (Primary Dx)Start: 38-18-3115mleibcutngSNZJQWL PROVIDER [facility]Start: 12-03-2022 End: 75-04-0616Adn-admission davejovani [facility] Start: 15-21-2686Kr RenewalReferring Provider Unknown [facility]-[place] 250 DO Work Phone: Start: 33-80-3491JSG, Provider: Aaron Ocampo, Status: Pen, Time: 2:00 PMReferring Provider [facility] 250 DO Work Phone: Start: 64-92-7977Ytfcxc outpatient visit 25 minutes Referring Provider [facility] 250 DO Work Phone: Start: 20-39-7330zfagyajrnnVAM UNKNOWNFacility: Start: 08-17-2022 End: 73-37-5451Evxosb outpatient visit 25 minutesVanessa Wilson MD Work Phone: [facility] Trauma SurgeryComment on above:Attention to ileostomy (HCC) (Primary Dx); Chronic obstructive pulmonary disease, unspecified COPD type (HCC); Ischemic cardiomyopathy; S/P colostomy takedownStart: 61-35-2050Zm RenewalReferring Provider [facility]-[place] 250 DO Work Phone: Start: 12-62-2398Zw RenewalReferring Provider Unknown [facility]-[place] 250 DO Work Phone: Start: 02-95-8995Eilttzbeb encounterVanessa Wilson MD Work Phone: [facility] Trauma SurgeryStart: 07-22-2022 End: 00-69-2520iugddltokdPLONBO SERVICES FAMILYFacility:V1Zllul: 06-08-2022 End: 90-52-0231wzlqrziqffHavnwmwid LowrieFacility:[facility] Hospitaltart: 06-08-2022 End: 36-45-3589kaoibvmeriYC Medhat Baltazar Work Phone: [facility] Work Phone: Start: 06-08-2022 End: 50-48-3542Pqydtpqa ReferredDO Medhat Baltazar Work Phone: [facility] HospitalStart: 94-17-0454hiydzbkzsxRHOGVS SAMSAFacility:R1Ykzgs: 05-28-2022 End: 91-55-5013byjhqxejedLcdtb N. MorrisFacility:[facility] Hospitaltart: 05-28-2022 End: 10-93-3587Abwcjnc encounter procedureDO Islam Jimyaugust Work Phone: [facility]-Sleep LabStart: 57-50-5663Araxb UpdateReferring Provider [facility]-[place] 250 DO Work Phone: Start: 78-25-9626Udiiwpz encounter procedureReferring Provider Unknown[facility]-[place] [address] [place] Work Phone: Start: 54-40-1011facizdvrycOsAraceli Ocampo II Facility:[id number]: 03-12-2022 End: 25-33-0712kpzxwjwxarAbuktzmul LowrieFacility:[facility] Hospitaltart: 03-12-2022 End: 39-70-9339Nvohkfyt ReferredDO Carmine Jackson Work Phone: [facility] ServicesStart: 71-37-2004Vjozed outpatient visit 25 minutesReferring Provider UnknownEASTERN [facility] CENTERNorth [facility]-[place] 250 DO Work Phone: Start: 92-26-0478onjhaqstdbAbvofefEusebio Ocampo II Facility:[id number]: 12-30-2021 End: 19-72-8681Dgudgq outpatient visit 15 minutesTrauma Surgery Resident [facility] Trauma SurgeryComment on above:Attention to ileostomy (HCC) (Primary Dx); Body mass index (BMI) 35.0-35.9, adultStart: 63-44-8842Nmculdqkj encounter Jina HolgerOhioHealth [facility] Hospital Trauma SurgeryStart: 94-30-1695Lb RenewalReferring Provider [facility]-[place] 250 DO Work Phone: Start: 46-16-4621Qv RenewalReferring Provider Unknown [facility]-[place] 250 DO Work Phone: Start: 79-54-4043Mr RenewalReferring Provider Unknown [facility]-[place] 250 DO Work Phone: Start: 07-29-2021 End: 34-07-2644eanziffyqvHADXUY SERVICES FAMILYFacility:H3Xoviy: 47-81-5571Oo RenewalReferring Provider [facility]-[place] 250 DO Work Phone: Start: 95-75-8679Oj RenewalReferring Provider Unknown [facility]-[place] 250 DO Work Phone: Start: 83-70-3083Zoiwer outpatient visit 25 minutes Referring Provider [facility]-[place] 250 DO Work Phone: Start: 20-16-7777NDUCTMu PCP [facility]- [place] 250 DO Work Phone: Start: 63-69-9618Fr RenewalNo PCP [facility]-[place] 250 DO Work Phone: Start: 46-54-7655Kgmvipz encounter procedureAARON RAMSEYNFacility:1532Start: 25-41-9488Qbyubvn encounter procedurePATY GUERRA Facility:[id number] encounter statusReferring Provider Unknown-[facility]-[place] 250 DO Work Phone: Procedures DateProcedureProcedure DetailPerforming ClinicianStart: 97-00-1840Utpowsiklgsx coronary interventionMiedenilsonfreda Verdinmadi Comment on above:PCI of CircumflexStart: 91-87-4511NDV -[facility]ADLaw[facility] Hugo MCKEON Work Phone: Start: 12-27-2023 End: 05-98-2897Vahtzsymdixi telephone assessment minIleostomy in place (HCC)Acute Care Surgery ResidentComment on above:Ileostomy in place (HCC) (Primary Dx); CAD S/P percutaneous coronary angioplasty; Chronic obstructive pulmonary disease, unspecified COPD type (HCC); Chronic congestive heart failure, unspecified heart failure type (HCC)Start: 50-70-9394QjiilnghwnlGrjxm ResidentStart: 35-28-1282Ltefx colonoscopyNo PCP None Comment on above:CCF;AppendectomyNo PCP NoneAppendectomyRyan Connie ColostomyRyan Connie Heart structure (body structure)Nabil Rosales Operative procedure on ankleNo PCP NonePercutaneous transluminal coronary angioplastyNo PCP NoneStructure of left lower leg (body structure)Nabil Rosales Plan of Treatment DateCare ActivityDetailAuthorStart: 09-00-4167Mugwotpzm for malignant neoplasm of colonMetroHealthStart: 67-88-5018Kedrv panelCholesterolMetroHealthStart: 09-11-2025 End: 75-18-3314Ioeyojq encounter qpyvatjvr19/17/2026 2:00 PM EST Office Visit AMA [facility] [address] [place] [address] Amber Cuellar, [address] [place] [address] [facility] 230 Start: 28-01-5305Wdmznluwq vaccinationInfluenza Vaccine (#1)[facility] Start: 03-07-2025 End: 57-26-4538CTN W Auto Differential panel - BloodCBC and differential Lab Routine Impaired fasting blood sugar Primary hypertension Expected: 03/07/2025, Expires: 03/07/2026[facility] HealthcareComment on above:Expected: 03/07/2025, Expires: 03/07/2026Start: 03-07-2025 End: 91-77-6442Mmafmvizjnodp metabolic 2000 panel - Serum or PlasmaComprehensive metabolic panel Lab Routine Impaired fasting blood sugar Primary hypertension Expected: 03/07/2025, Expires: 03/07/2026[facility] HealthcareComment on above: Expected: 03/07/2025, Expires: 03/07/2026Start: 03-07-2025 End: 22-23-0245Qutmlwhghu A1c/Hemoglobin.total in BloodHemoglobin A1c Lab Routine Impaired fasting blood sugar Expected: 03/07/2025, Expires: 03/07/2026 [facility] HealthcareComment on above:Expected: 03/07/2025, Expires: 03/07/2026Start: 03-07-2025 End: 80-73-5713Jbwnk 1996 panel - Serum or PlasmaLipid panel Lab Routine Impaired fasting blood sugar Primary hypertension Expected: 03/07/2025, Expires: 03/07/2026[facility] HealthcareComment on above:Expected: 03/07/2025, Expires: 03/07/2026Start: 03-07-2025 End: 62-21-7101Swegtcbnxdxe/Creatinine panel in random UrineMicroalbumin / creatinine urine ratio Lab Routine Impaired fasting blood sugar Primary hypertensionExpected: 03/07/2025, Expires: 03/07/2026[facility] HealthcareComment on above:Expected: 03/07/2025, Expires: 03/07/2026Start: 03-07-2025 End: 99-78-5198Tddzlnvbhcm [Units/volume] in Serum or PlasmaTSH Lab Routine Acquired hypothyroidism Expected: 03/07/2025, Expires: 03/07/2026[facility] Comment on above:Expected: 03/07/2025, Expires: 03/07/2026Start: 03-07-2025 End: 66-11-8027Ddzcwbwzw (T4) free [Mass/volume] in Serum or PlasmaT4, free Lab Routine Acquired hypothyroidism Expected: 03/07/2025 (Approximate), Expires: 03/07/2026[facility] Work Phone: Comment on above:Expected: 03/07/2025 (Approximate), Expires: 03/07/2026Start: 03-07-2025 End: 81-48-9773Qfxwxor encounter pvytrsnkh92/13/2025 1:20 PM EDT Office Visit N[facility] [address] [place] [address] Amber Cuellar, DO [address] [place] [address] [facility] 230Comment on above:ArrivedStart: 07-17-2024 End: 62-62-5225Fderngn encounter /23/2024 11:00 AM EST Office Visit NOMS [facility] [address] [place] [phone] Amber Cuellar L, DO [address] [place] [address] [facility] 230Start: 07-04-2024 End: 76-58-5930Ushakvw encounter azmqorybl74/10/2024 2:15 PM EST Office Visit NOMS P[facility] [address] [place] [address] Misti Pardo, DO [address] [place] [address] NOMS PULMStart: 04-26-2024 End: 48-25-9741Qetoqni encounter procedureNOMS PULMComment on above:COPD with acute exacerbation ([facility])Start: 65-31-6763Fsgkmwkuv vaccinationInfluenza Vaccine (#1)[facility] HealthcareStart: 39-96-9590KIO, Provider: Aaron Ocampo, Status: Pen, Time: 1:20 PMFUV, Provider: Aaron Ocampo, Status: Pen, Time: 1:20 PM[facility] [place] 250 DO Work Phone: Start: 47-17-5406MQLUU-19 Vaccine ( season) COVID-19 Vaccine ( season)[facility]roHealthStart: 35-55-8243IURJZL NUC, Provider: [place] HHVI NUCLEAR 01,[id number], Status: Pen, Time: 12:00 PMSTRESS NUC, Provider: [place] HHVI NUCLEAR 01,[id number], Status: Pen, Time: 12:00 PM [facility] [place] 250 DO Work Phone: Start: 51-21-8925KXB, Provider: Aaron Ocampo, Status: Pen, Time: 2:00 PMFUV, Provider: Aaron Ocampo, Status: Pen, Time: 2:00 PMC[facility] Core [place]ix[place] 250 DO Work Phone: Start: 08-17-2022 End: 63-08-5657Mtwfbhb encounter uoeoguiou99/23/2023 Office Visit Trauma [facility] Trauma SurgeryStart: 69-66-6203Ivglw metabolic 2000 panel - Serum or PlasmaBasic Metabolic PanelMetroHealthStart: 85-90-8914Kmluelradz measurement Basic Metabolic PanelMetroHealthStart: 13-42-4304Dkqhqfkoh vaccinationInfluenza Vaccine (#1)MetroHealthStart: 99-57-8997WEMV, Provider: [place] HHVI NUCLEAR 01,[id number], Status: Pen, Time: 2:00 PMMUGA, Provider: [place] HHVI NUCLEAR 01,[id number], Status: Pen, Time: 2:00 PMC[facility] [place] 250 DO Work Phone: Start: 10-86-2074OPG, Provider: Aaron Ocampo, Status: Pen, Time: 3:30 PMFUV, Provider: Aarno Ocampo, Status: Pen, Time: 3:30 PMMP-[facility] Core [employer]Can[facility] 250 DO Work Phone: Start: 12-30-2021 End: 33-84-8114Uotfykp encounter fyeellrkv54/07/2022 Office Visit Trauma Surgery [facility] Trauma SurgeryStart: 49-69-4941WQZ, Provider: Aaron Ocampo, Status: Pen, Time: 8:00 AMFUV, Provider: Aaron Ocampo, Status: Pen, Time: 8:00 AMMP-[facility] DO Work Phone: Start: 14-75-8820Zrojeqj stimulating hormone measurementTSHMetroHealthStart: 35-61-9356Nxbolwbblypt vaccinationMetroHealth Start: 33-71-8525Amxettxrvcs of occult blood in single stool specimenFIT MetroHealthStart: 05-98-7990Kyyhikux (RZV) Vaccine (1 of 2)Shingles (RZV) Vaccine (1 of 2)MetroHealthStart: 24-29-5484Xiojoddir for malignant neoplasm of colonMetroHealthStart: 58-90-1803Lecph panelCholesterolMetroHealthStart: 52-18-5229Aaaduksdg A (HAV) Vaccine (optional start 19+ years)Hepatitis A (HAV) Vaccine (optional start 19+ years)MetroHealthStart: 62-66-1126Zviohltex B vaccinationHepatitis B (HBV) Vaccine (1 of 3 - 19+ 3-dose series)[facility] Start: 04-41-9381Wgljsdf + diphtheria + acellular pertussis vaccine (product) Tdap BoosterMetroHealthStart: 01-85-0388OGNUO-19 Vaccine (#1)COVID-19 Vaccine (#1)MetroHealthStart: 03-38-2271BZQAO-19 Vaccine (#1)COVID-19 Vaccine (#1) MetroHealthStart: 92-84-6038Xaztkmbcz aortic aneurysm screeningPulmonary Function TestingMetroHealthStart: 36-23-8945Vpvxikiz FractionEjection Fraction MetroHealthStart: 78-99-4210Mwauqbceg Function TestingPulmonary Function Testing MetroHealthStart: 80-50-6458Qjwftbqsh for malignant neoplasm of colonMetroOhiohealth Immunizations Immunization DateImmunizationNotesCare HekklbwvBdkksuac06-05-6493zbezxxzer virus vaccine, unspecified formulationTimothy Hialeah DO Work Phone: NOMS Oxvhovzpfd84-08-1600jmmhkeavy, high dose seasonal, preservative-freeReferring Provider [place] [address] DO Work Phone: [phone]kdcaj virus vaccine, unspecified formulationTimothy Hialeah DO Work Phone: NOMS Bpyvvcdlrh66-99-1508SastljbSbyzfxg Caridad ZaoqrOabizz73-56-3216eoadrlpwq, seasonal, injectableNo PCP [place] [address] DO Work Phone: [phone]dqfi virus vaccine, unspecified formulationVanessa [place] MD Work Phone: [phone]976RgutrUmervx15-22-4179gdgpiqsyntch polysaccharide vaccine, 23 valentNo PCP XpnvAnfpnUvfbyd32-71-0310Ehdyhjphh, injectable, Madin Sagola Canine Kidney, preservative free, quadrivalentNo PCP [place] [address] DO Work Phone: [phone] 342-213901478518-00-1388uabquzdvf virus vaccine, unspecified formulationReferring Provider [place] [address] DO Work Phone: [phone]bcsm, injectable, quadrivalent, preservative freeNo PCP [facility] Payers DatePayer CategoryPayerPolicy [id number] [id number] 2.16840.1.772707.3.57[id number] 2.840.1.025231.3.579.2.[id number] 2.16840.1.710432.3.579.2.185098-91-0048Tiugmqx6711866 2.840.1.946126.3.579.2.25962-15-9612Axvwqoo6401278 2.840.1.532797.3.579.2.24482-35-9775Bvrsews2299158 2.840.1.708060.3.57[id number] 2.840.1.326812.3.579.2.590[id number] 2.840.1.419786.3.579.2.30146-73-0568Rarrtrm785146767 2.0.1.268520.3.579.2.65809-50-9128Eadiego65511584 2.840.1.574633.3.579.2.17419-16-4316Beaalco76772139 2.840.1.478225.3.579.2.09562-96-4877Rfvttcu45670805 2.840.1.573872.3.579.2.05474-83-8534Tsegobf36698745 2.840.1.672670.3.579.2.[id number] 2.840.1.847980.3.579.2.99118-31-1488Afvmwqx01598656 2.840.1.953027.3.579.2.181392-97-1872Qgtgvex7177851 2..1.215134.3.579.2.337012-33-0711Omnswpk85729978 2..1.965896.3.579.2.60864-24-1554Mxlgkkx91917830 2..1.234017.3.579.2.19710-72-9603Syozxbz49350596 2..1.771892.3.579.2.19815-15-2897Azcmigb62296185 2..1.801138.3.579.2.727 [id number] p3hv3xc7-e1mt-3538-kh27-h87x51nwawm727-44-8665Jwmw-lne 4115y593-3664-9847-bj7i-[id number]/HFA/FAP [id number] 60v5651o-0787-9f4u-q1xk-d064fq9y9199Fbyhybr99674957 2..1.394096.3.579.2.778Oilcpal04832579 2..1.776970.3.579.2.531 Sehkfrm34421387 2..1.544236.3.579.2.531 Social History DateTypeDetailFacilityStart: 01-14-2021 End: 59-80-1821Dvzozl consumes alcoholRarely consumes alcoholJennifer Ville [address] DO Work Phone: Comment on above:QUIT 2017 1 PPD;quit 05/26/2021;one electronic device a week;Start: 01-14-2021 End: 29-97-5728Sgnhwzo smoking status GAISLight tobacco smokerMetroHealthHistory of tobacco useCigarette SmokerMetroHealthStart: 01-14-2021 End: 59-22-6489Uxsfstx use and exposureSmokeless tobacco non-userMetroHealth Start: 50-52-9937Dpfheaz CommentSmokes approx three cigarettes a month when pt is stressed MetroHealthStart: 24-24-1054Qhk Assigned At BirthNot on file MetroHealthStart: 11-28-2020 End: 49-55-7826Nzcdysu smoking status NHISEx-smoker (finding)[facility] Hospitaltart: 38-17-2151Hds Assigned At [facility] Centertart: 12-30-2021 End: 62-13-9077Bgf Assigned At [facility] SystemHistory of tobacco useCurrent smokerNOSC HealthcareStart: 04-25-2024 End: 85-20-3052Vpbbypruv beverage intakeLifetime non-drinker (finding)[facility] HealthcareStart: 68-08-5997Spedpaf Commentsoda/pop 1-2 cups/dayNORipley County Memorial Hospital Sexual OrientationMercy Health Lorain Hospital Start: 73-22-0746JtzJecj (finding)[facility] Hospitaltart: 10-90-2268RhhGuapPWDM Healthcare Medical Equipment Procedure CodeEquipment CodeEquipment Original TextEquipment IdentifierDatesCL STENT REAGAN 3.0 X 28FDAStart: 51-02-6582PX STENT REAGAN 3.0 X 28FDAStart: 98-00-6152FEX of Circumflex Unknown 08/01/24 Non Biological Left Circumflex Coronary ArteryFDAStart: 06-49-0452Axdwabp on above:3.0r45MZU of Circumflex Unknown 08/01/24 Non Biological Left Circumflex Coronary ArteryFDAStart: 68-31-1599Mszwyvx on above:3.5j95LBN of Circumflex Unknown 08/01/24 Non Biological Left Circumflex Coronary ArteryFDAStart: 43-65-7278Qxrnukh on above:3.5x18 Functional Status DgemEfeuxaoembOoogxlSigcsdll76-32-9841Xunlfdd Health Questionnaire 2 item (PHQ- 2) [Reported][facility] HospitalTjzeowiilx22-86-1942Xtvdsaomvx StatusN/AFisher - The [facility] Pratt HospitalUdewjy64-84-1876Qmmvtlfbzs StatusN/AFisher [facility]01-07-2025 Functional StatusNoFisher - The [facility] Pratt HospitalXzeylk50-19-6909Mbpkrozohx StatusN/A [facility] Clinical Notes 12-19-2021 to 03-07-2025 Note Date & JhmuMwgzJzhvkkkv18-47-8927 History of Present illness Narrative* Amber Cuellar, DO - 03/07/2025 1:20 PM EDT Images from the original note were not included. [facility] [place] SUBJECTIVE: HPI: Eliceo Kenny is a 59 [...] but he recovered within two days. His it corporate recruiter discontinued carvedilol following a stent placementand initiated [...] Acquired hypothyroidism Aphasia Coronary artery disease involving rosebud coronary artery of rosebud heart without angina pectoris Generalized anxiety disorder Hemiparesis of right dominant side as late effect of cerebrovascular disease (HCC) HFrEF (heart failure with reduced ejection fraction) ([facility]) Mucopurulent chronic bronchitis (HCC) Nicotine dependence with [...] acute cor pulmonale ([facility]) 09/07/2019 Smoking 01/17/2024 Syncope 01/17/2024 Tobacco user 06/27/2024 Vertigo 06/27/2024 Vitamin D deficiency 06/27/2024 documented in [facility] encounterTexas [facility] [id number] NoteOperative Report Procedure Left heart catheterization procedure report DATE OF PROCEDURE: 08/01/2024 DAY SPA MANAGER Blanco Lazcano MD [facility] INDICATION: New onset cardiomyopathy, history of [...] patient was brought to the Adult Cardiac Chemical Applicator and placed on the table. The planned puncture sites/areas were prepped and draped in usual sterile fashion and a safety time-out was performed. Moderate Sedation was given by the Cardiac Chemical Applicator RN. RIGHT RADIAL ARTERY ACCESS: The puncture [...] was administered via peripheral IV by the sanitation laborer RN after the catheter crossed into the [...] <50cc CONTRAST ADMINISTERED: Please see Adult Cardiac Chemical Applicator Log for further details FINDINGS: SELECTIVE CORONARY [...] note The patient was heparinized. A 6 Mexican JR4 guiding catheter was used. Right coronary artery was engaged. Intracoronary nitroglycerin was administered. Pressure wire was advanced to the proximal RCA,and after performance of advanced normalization, advanced to the distal RCA with no technical difficulties. iFR was assessed at 0.95, consistent with functionally nonsignificant (more content not included)...Flower HospitalComment on above:Result Comment: Electronically Signed By: Blanco Lazcano MD\.br\Date and Time Signed: 08/01/24 16:24 [id number] Evaluation + Plan noteExtracted from:Title: Procedure Note Heart & VascularAuthor:Blanco Lazcano MD DDate:08/01/24 Atrial fibrillation (I48.91: Unspecified atrial fibrillation) CAD (coronary artery disease) (I25.10: Atherosclerotic heart disease of rosebud coronary artery without angina pectoris) HLD (hyperlipidemia) [...] Level 08/02/24 * Troponin 08/02/24 [facility] 01-07-2025 Hospital Discharge instructions Patient Education 08/01/2024 11:18:38 CV - Cardiovascular PCI Discharge Instructions (CUSTOM) [place], [place] Cardiovascular PCI DISCHARGE INSTRUCTIONS Diet: Resume [...] hours post procedure: Actoplus MetGlucophageGlucophage XR GlucovanceAvandametFortamet Nxp-hovqpmrlxJztldbOift-sjynckxld GlumetzaJanumetMetaglip RiometGlycomet Minimal pain, soreness and/or discomfort is expected. If you are prescribed an aspirin and/or antiplatelet (such as Plavix, Brilinta or Effient) do NOT stop taking these medications for any reason without talking to your it corporate recruiter Site Care: Do not remove dressing for [...] you are interested in smoking cessation, contact [facility] at [phone], ext. [phone]. In the event you are unable to reach your physician, please call Richa at [phone] and the button attaching machine operator will assist you. Seek Medicare [...] Up Care 07/12/2024 12:07:06 With:Blanco Lazcano Address: [address] [place] [phone]- [phone] Business (1) When:08/24/2024 14:45:00 [facility] 11-28-2024 NoteEchocardiology Procedure Exam Date/Time Accession # Ordering Echo Transthoracic w/ 06/20/2024 15:19 EST [id number] Blanco Lazcano MD Contrast CPT code 31126 52712 Reason for Exam (Echo Transthoracic w/ Contrast) I25.10;Cardiomyopathy Report [address] [address] Adult Echocardiogram Report Name: ELICEO KENNY Study Date: 06/20/2024 02:24 PM BP: 139/88 mmHg Patient [facility]: [facility] Ambulatory(s) [facility] HR: 87 : 1965 Gender: Male Height: [...] Blanco Lazcano MD Transcribed by: DHAVAL Technologist: [facility]10-02-2024 History of Present illness Narrative* Misti [...] MOUTH EVERY DAY FOR 90 DAYS HYDROcodone-acetaminophen ([place]man) 5-325 MG tablet every 6 (six) hours. [...] by mouth at bedtime 30 tablet 5 Wfmfphbtoju-Gcoohqkbu-Nqlzws (Trelegy Ellipta) 200-62.5-25 MCG/ACT aerosol powder Inhale 1 puff Daily 1 each 5 No current facility-administered medications for this visit. Past Medical History: Diagnosis Date Abscess of sigmoid colon due to diverticulitis 01/17/2024 Angina pectoris ([facility]) Cardiogenic pulmonary edema ([facility]) 01/17/2024 Colostomy present ([facility]) COPD (chronic obstructive pulmonary disease) ([facility]) H/O ileostomy Heart failure ([facility]) History of stomach ulcers Hyponatremia 01/17/2024 Single subsegmental thrombotic pulmonary embolism without acute cor pulmonale ([facility]) 09/07/2019 Smoking 01/17/2024 Syncope 01/17/2024 Past Surgical [...] study. Misti Pardo DO documented in this encounterTexas County Memorial [id number] History of Present illness Narrative* Amber Cuellar [...] for this visit: COPD with acute exacerbation ([facility]) - predniSONE (Deltasone) 20 MG tablet; Take [...] hypothyroidism (CMS/HCC) Aphasia Coronary artery disease involving rosebud coronary artery of rosebud heart without angina pectoris (CMS/HCC) Generalized anxiety [...] Smoking 01/17/2024 Syncope 01/17/2024 documented in this encounterTexas County Memorial [id number] Note* Addendum Note - John Collier MD - 01/02/2024 9:47 AM EDTAddended by: JOHN COLLIER on: 01/02/2024 09:47 AM Modules accepted: Orders [id number] Miscellaneous Notes* Addendum Note - John Collier MD - 01/02/2024 9:47 AM EDTAddended by: JOHN COLLIER on: 01/02/2024 09:47 AM Modules accepted: Orders * Addendum Note - John Collier MD - 12/29/2023 12:25 PM EDTAddended by: JOHN COLLIER on: 12/29/2023 12:25 PM Modules accepted: Orders documented in this [id number] Note* Addendum Note - John Collier MD - 12/29/2023 12:25 PM EDTAddended by: JOHN COLLIER on: 12/29/2023 12:25 PM Modules accepted: Orders [id number] Note* Addendum Note - John Collier MD - 12/29/2023 12:25 PM EDTAddended by: JOHN COLLIER on: 12/29/2023 12:25 PM Modules accepted: Orders [id number] Note* Addendum Note - John Collier MD - 12/29/2023 12:25 PM EDTAddended by: JOHN COLLIER on: 12/29/2023 12:25 PM Modules accepted: Orders [id number] Miscellaneous Notes* Addendum Note - John Collier MD - 12/29/2023 12:25 PM EDTAddended by: JOHN COLLIER on: 12/29/2023 12:25 PM Modules accepted: Orders documented in this [id number] NoteS: patient has been doing well since [...] from him. He has not seen his warehouse distribution manager or his it corporate recruiter in some time, but he will set up an appointment for medical risk stratification and optimization prior to going to our next clinic visit. Plan: We will follow up on operative risk stratification from his it corporate recruiter and his warehouse distribution manager We will schedule to see him in clinic in 1 month after these items are completed. We ask that he provide the fax number [phone] to his providers to send the pre op evaluation documents [facility] History of Present illness Narrative* John [...] from him. He has not seen his warehouse distribution manager or his it corporate recruiter in some time, but he will set up an appointment for medical risk stratification and optimization prior to going to our next clinic visit. Plan: We will follow up on operative risk stratification from his it corporate recruiter and his warehouse distribution manager We will schedule to see him in clinic in 1 month after these items are completed. We ask that he provide the fax number [phone] to his providers to send the pre op evaluation documents to our office documented in this [id number] History of Present illness Narrative* John Collier [...] from him. He has not seen his warehouse distribution manager or his it corporate recruiter in some time, but he will set up an appointment for medical risk stratification and optimization prior to going to our next clinic visit. Plan: We will follow up on operative risk stratification from his it corporate recruiter and his warehouse distribution manager We will schedule to see him in clinic in 1 month after these items are completed. We ask that he provide the fax number [phone] to his providers to send the pre op evaluation documents to our office documented in this [id number] Instructions* Patient Instructions* Vanessa Wilson MD - 08/17/2022 2:28 PM EST Please send records from Dr. Ocampo to [facility] after appointment this upcoming Wednesday. Attn: Vanessa Wilson MD Trauma, Emergency General Surgery, Burn, and Surgical Critical Care Obtaining information to determine cardiac risk for Elective ileostomy reversal, possible exploratory laparotomy, possible bowel resection. Not an emergent or urgent surgery. documented in this [id number] History of Present illness Narrative* Vanessa Wilson MD - 08/17/2022 2:23 PM EST Images from the original note were not included. Trauma/Acute Care Surgery Clinic Note Eliceo Kenny is a 56 year old male with a history of hypothyroidism, CT, CHF, COPD, CAD (s/p PCI on ASA/Plavix), [...] healing well. He returned to ED from [place] for abdominal pain and drainage of midline [...] he recently had an admission to [facility] about 3 weeks prior for possible stroke [...] reverse his ileostomy. He has seen his it corporate recruiter and states he was told that having [...] procedure. I will need records from his it corporate recruiter, especially since he is potentially recommended for either a pacemaker or defibrillator, and I would like records from his warehouse distribution manager (Dr. Sousa at [place]) since he requires frequent use of his rescue inhaler and he often appears in the office audibly wheezing. He has not had any colonoscopy in any of the records I have visible at [facility], and he states if he ever had one, it would have been through [facility]. I would also like his [...] need more information before I can adequately correctional classification counselor him on these risks and have an accurate discussion with him to determine if benefits outweigh substantial risks. I had him sign medical release forms to obtain records from [place]. He states he has an appointment with cardiology this upcoming Wednesday, and I encouraged him to have them send his records during that visit. I provided the fax number and directions. Will plan for follow up on ce these have been obtained. Answered all question to the best of my ability. Vanessa Wilson MD documented in this [id number] Telephone encounter Note* Telephone Encounter - Corazon Khan - 08/06/2022 2:27 PM EST Pt was last seen in December 2021, pt would like to see Dr. Wilson for a follow- up he is experiencing some discomfort and would like the doctor to review things with him concerning his health 08/17/2022 at 2:45 pm [id number] Miscellaneous Notes* Telephone Encounter - Corazon Khan - 08/06/2022 2:27 PM EST Pt was last seen in December 2021, pt would like to see Dr. Wilson for a follow- up he is experiencing some discomfort and would like the doctor to review things with him concerning his health 08/17/2022 at 2:45 pm documented in this [id number] History of Present illness Narrative* Vanessa Wilson MD - 12/30/2021 4:19 PM EDT Images from the original note were not included. Trauma/Acute Care Surgery Clinic Note Eliceo Kenny is a 56 year old male with a history of hypothyroidism, CT, CHF, COPD, CAD (s/p PCI on ASA/Plavix), [...] healing well. He returned to ED from [place] for abdominal pain and drainage of midline [...] chest pain. He does state that his it corporate recruiter wants to evaluate him for defibrillator placement. [...] Recommended he continue to follow with his it corporate recruiter and warehouse distribution manager for management. I did also suggest that if he has any acute concerns about his abdomen that I recommend he try to go to the [facility] in [place] if he is able to get there instead of [place] since myself and my partners rotate covering emergency general surgery call at [facility] 15/02. In the meantime, no scheduled follow [...] Risk protocol implemented: No documented in this [id number] Instructions* Patient Instructions* Vanessa Wilson MD - 12/30/2021 1:31 PM EDT If you are concerned about your ostomy (the bag) or about a new abscess or anything related to yourabdomen - come to the [facility] in [place] if you can, and ask for the [...] I will take over documented in this [id number] Telephone encounter Note* Telephone Encounter - Jina Mclean - 12/19/2021 1:58 PM EDT Tried to reach patient about appt on that we needed to move to 6/ and I got his voicemail that was not set up I will try back [id number] Miscellaneous Notes* Telephone Encounter - Jina Mclean - 12/19/2021 1:58 PM EDT Tried to reach patient about appt on that we needed to move to 6/ and I got his voicemail that was not set up I will try back documented in this encounterMetroHealthEvaluation + Plan note No data available for this section [facility] note Future Appointments Appointment Date:08/24/2024 02:45:00 PM Scheduled Provider:Jaleesa SOLIS, Blanco Montenegro Location:[facility].Cardiology Clinic Appointment Type:Cardiology Follow Up (FT) [facility] Evaluation + Plan note Future Appointments Appointment Date:08/24/2024 02:45:00 PM Scheduled Provider:Blanco Lazcano MD Location:[facility].Cardiology Clinic Appointment Type:Cardiology Follow Up (FT) Future Scheduled Tests Laboratory* B-Type Natriuretic Peptide 05/25/24 * Basic Metabolic Panel 05/25/24 * Lipid Panel 05/25/24 [facility] evaluckdwz + Plan note Future Appointments Appointment Date:08/01/2024 09:00:00 AM Scheduled Provider: Location:[facility] Appointment Type:CV Heart Cath (FT) Appointment Date:08/24/2024 02:45:00 PM Scheduled Provider:Blanco Lazcano MD Location:[facility].Cardiology Clinic Appointment Type:Cardiology Follow Up (FT) Future Scheduled Tests Radiology* CV Cardiovascular 08/01/24 [facility] evaluation + Plan note Future Appointments Appointment Date:09/21/2024 02:00:00 PM Scheduled Provider:Blanco Lazcano MD Location:[facility].Cardiology Clinic Appointment Type:Cardiology Follow Up (FT) [facility] evaluation + Plan note Future Appointments Appointment Date:02/07/2025 01:45:00 PM Scheduled Provider:Juan Francisco Johnson PA-C Location:[facility].Cardiology Clinic Appointment Type:Cardiology Follow Up (FT) [facility] evaluation note* Diagnosis Attention to ileostomy (HCC)- Primary Attention to ileostomy Body mass index (BMI) 35.0-35.9, adult documented in this encounter MetroHealthEvaluation noteNo assessment information availableProtestant Deaconess Hospital Work Phone: evaluation note* Diagnosis Attention [...] and weight loss were reviewed with him.[facility] Clinic[facility] [employer] DO Work Phone: History of Present illness [...] exercise and weight loss were reviewed with him.[facility] DO Work Phone: History of Present [...] exercise and weight loss were also advocated. [place] [address] DO Work Phone: History of Present illness [...] disease that could complicate his procedure. [facility] [facility] DO Work Phone: Hospital Discharge instructions No data available for this section [facility] HospitalProgress note No data available for this section [facility] Summary Purpose Family History No Family [...] No May 28, 2018 2:14am Date ActivatedDate BkdjxkztpfyUejxgplf94/10/2021 5:38 AM05/05/2021 1:46 PM QuestionAnswerCommentsDocumentation of decision [...] seen for a 5 month follow-up of. [facility] Discharge [facility]2021[facility] for a 5 month follow-up of. [facility] Discharge 06/14/2021[facility] is being seen for a [...] Chronic obstructive pulmonary disease, unspecified COPD type ([facility]/HCC) Misti Pardo, [address] [place] [address] Referral IDStatusReasonStart DateExpiration DateVisits RequestedVisits [id number] Additional Source Comments (unrecognized sect ion and content) No Status Records FoundNo Status Records FoundNo Status Records FoundNo Status Records FoundNo Status Records FoundNo Status Records FoundNo Status Records FoundNo Status Records FoundNo Status Records FoundNo Status Records FoundNo Status Records FoundNo Status Records FoundNo Status Records FoundNo Status Records Found INFORMATION SOURCE (unrecogn ized section and content) DATE CREATED AUTHOR 10/23/2018 [facility] DATE CREATED AUTHOR AUTHOR'S ORGANIZ ATION 05/16/2022 [facility] DATE CREATED AUTHOR AUTHOR'S ORGANIZ ATION 07/28/2022 [facility] DATE CREATED AUTHOR AUTHOR'S ORGANIZ ATION 2022 [facility] DATE CREATED AUTHOR AUTHOR'S ORGANIZ ATION 2022 [employer] DATE CREATED AUTHOR AUTHOR'S ORGANIZ ATION 10/13/2022 [facility] DATE CREATED AUTHOR AUTHOR'S ORGANIZ ATION 03/11/2024 [facility] DATE CREATED AUTHOR AUTHOR'S ORGANIZ ATION 07/25/2024 [facility] DATE CREATED AUTHOR AUTHOR'S ORGANIZ ATION 08/05/2024 [facility] DATE CREATED AUTHOR AUTHOR'S ORGANIZ ATION 08/26/2024 [facility] DATE CREATED AUTHOR AUTHOR'S ORGANIZ ATION 03/09/2025 [facility] DATE CREATED AUTHOR AUTHOR'S ORGANIZ ATION 05/26/2025 [facility] Care Teams (unrecognized sec tion and content) Team MemberRelationshipSpecialtyStart DateEnd [place] [address] PCP - GeneralFamily Medicine03/28/20 Cee Leo LISW [address] [address] Social WorkerSocial Work04/30/20 Manjula Lind MD, PhD [address] [place] [address] PhysicianTrauma Szikrrs91/1/21Team MemberRelationshipSpecialtyStart DateEnd Date Tawnya Pepper N [place] [id number] PCP - GeneralFamily Medicine03/28/[address] [address] Social WorkerSocial Work04/30/20 Manjula Lind MD, PhD [address] [place] [address] [place] [address] PhysicianTrauma Sldexub93/1/21 Team Status: Inactive Member Role Status Dates Carmine Jackson , Attending Provider Active Medhat Baltazar , DO RESReferring ProviderActive Team Status: Inactive Member Role Status Dates Medhat Baltazar , RES Attending Provider Active Team Status: Inactive Member Role Status Dates Medhat Baltazar , RES Referring Provider Active Carolyn Dugan , MDAttbucky ProviderActiveTeam MemberRelationshipSpecialty Start DateEnd Date Tawnya Pepper [address] [place] [address] PCP - GeneralFamily Medicine03/28/[address] [address] Social WorkerSocial Work04/30/20 Manjula Lind MD, PhD [address] [place] [address] [place] [address] PhysicianTrauma Mdzyxmr73/1/21Team MemberRelationshipSpecialtyStart DateEnd Date Tawnya Pepper [address] [place] [address] PCP - GeneralFamily Medicine03/28/[address] [address] Social WorkerSocial Work04/30/20 Manjula Lind MD, PhD [address] [place] [address] [place] [address] PhysicianTrauma Noiylgn47/1/21Team MemberRelationshipSpecialtyStart DateEnd Date Tawnya Pepper [address] [place] [address] PCP - GeneralFamily Medicine03/28/[address] [address] Social WorkerSocial Work04/30/20 Manjula Lind MD, PhD [address] [place] [address] [place] [address] PhysicianTrauma Mtuiuip61/1/21 Vanessa Wilson MD [address] [place] [address] [place] [address] PhysicianTrauma Surgery08/29/22Team MemberRelationshipSpecialtyStart DateEnd Date Tawnya Pepper [address] [place] [address] PCP - GeneralFamily Medicine03/28/[address] [address] Social WorkerSocial Work04/30/20 Manjula Lind MD, PhD [address] [place] [address] [place] [address] PhysicianTrauma Csmokpm58/1/21 Vanessa Wilson MD [address] [place] [address] [place] [address] PhysicianTrauma Surgery08/29/22Team MemberRelationshipSpecialtyStart DateEnd Date Hial[place], Amber L, DO [address] [place] [address] PCP - GeneralFamily Medicine12/01/22Team MemberRelationshipSpecialtyStart DateEnd Date Amber Cuellar, DO [address] [place] [address] PCP - Generalmi Medicine12/01/22Team MemberRelationshipSpecialtyStart DateEnd Date Amber Cuellar, DO [address] [place] [address] [facility]/01/22Team MemberRelationshipSpecialtyStart DateEnd Date Amber Cuellar, DO [address] [place] [address] PCP - Generalmi Medicine12/01/22 Amber Cuellar, DO [address] [place] [address] PCP - [facility]10/24/2510Team MemberRelationshipSpecialtyStart DateEnd Date Amber Cuellar, DO [address] [place] [address] PCP - Generalmily Medicine12/01/22 Amber Cuellar, DO [address] [place] [address] PCP - [facility] [facility]10/24/2510Team MemberRelationshipSpecialtyStart DateEnd Date Amber Cuellar, DO [address] [place] [address] PCP - GeneralFamily Medicine12/01/22 Polo Amber Patricia, DO [address] [place] [address] PCP - [facility]10/24/2510Team MemberRelationshipSpecialtyStart DateEnd Date Amber Cuellar Patricia [address] [place] [address] PCP - Generalmily Medicine12/01/22 Polo Amber Gomez, DO [address] [place] [address] PCP - [facility] Goals (unrecognized section and content) Goals [...] / Pulmonology Diagnoses COPD with acute exacerbation ([facility]) Procedures [place] OFFICE/OUTPATIENT NEW HIGH MDM 60 MINUTES Amber Cuellar DO [address] [place] [address] Misti Pardo, DO [address] [place] [address] Referral IDStatusReasonStart DateExpiration DateVisits RequestedVisits [id number] Specialty Services Required [id number] RefillReasonCommentsAnnual Exam FOR RECORDS PERTAINING TO PATIENTS [...] BE BASED ON THE PRIMARY CLINICAL RECORDS. [facility] [employer] provides no warranty or guarantee of the accuracy or completeness of information in this document.
== END 2025-06-12 16:20 | disposition home or self-care (01) | DRG 422 ==
LOC: ER 17:40 → MS 17:57
PROVIDERS: Admitting Provider Hospitalist; Emergency Provider Emergency Medicine; Visit Provider Internal Medicine
DX: E86.0 Dehydration (principal); N17.9 Acute kidney failure, unspecified; J44.0 Chronic obstructive pulmonary disease with (acute) lower respiratory infection; J20.9 Acute bronchitis, unspecified; J44.1 Chronic obstructive pulmonary disease with (acute) exacerbation; I11.0 Hypertensive heart disease with heart failure; I50.30 Unspecified diastolic (congestive) heart failure; R11.10 Vomiting, unspecified; I48.91 Unspecified atrial fibrillation; Z93.2 Ileostomy status; I25.10 Atherosclerotic heart disease of native coronary artery without angina pectoris; F17.210 Nicotine dependence, cigarettes, uncomplicated; R73.9 Hyperglycemia, unspecified; E03.9 Hypothyroidism, unspecified; T38.0X5A Adverse effect of glucocorticoids and synthetic analogues, initial encounter; Z79.890 Hormone replacement therapy; Z79.82 Long term (current) use of aspirin; Z79.899 Other long term (current) drug therapy; Z86.16 Personal history of COVID-19
CPT/HCPCS: 36415; 71045; 76775; 80048; 81001; 83036; 83605; 83735; 83880; 84484; 85025; 87040; 87070; 87205; 87804; 87811; 93005; 94640; 96361; 96374; 96375; 99285; 99406; J0456; J0780; J1644; J2405; J2919